=== PATIENT | female | born 1960 | race Two or more races ===

== ENCOUNTER 2020-06-22 15:39 | Emergency (ER) | payer MEDICAID, SELFPAY ==
[2020-06-22 15:43] VITALS: BP 130/82; PULSE 87; RESP 18; TEMP 37.2; O2SAT 97; BMI 41.4
--- NOTE | 2020-06-22 16:18 | XR_ITS ---
EXAMINATION: 1. LEFT FOOT. 2. LEFT ANKLE. 3. LEFT TIBIA-FIBULA. 4. LEFT KNEE. CLINICAL INFORMATION: Fall. Now with pain. COMPARISON: Left knee 05/11/2019 TECHNIQUE: 1. Left foot. 3 views 2. Left ankle. 3 views 3. Left tibia-fibula. 2 views 4. Left knee. 4 views FINDINGS: 1. Left foot. No fracture or dislocation. Joint spaces are normal. There is a small plantar calcaneal spur. 2. Left ankle. No fracture. No dislocation. Ankle mortise is congruent. 3. Left tibia-fibula. No fracture of the tibia or the fibula. No focal bone lesion or abnormal periosteal reaction. 4. Left knee. No fracture or dislocation. There is joint narrowing of the medial femoral tibial joint with marginal bone spurs of the femur and tibia. No bony erosion or soft tissue calcification. IMPRESSION: 1. Left foot. No acute abnormality. 2. Left ankle. No acute abnormality. 3. Left tibia-fibula. No acute abnormality. 4. Left knee. No acute abnormality.
[2020-06-22] MEDS: oxyCODONE HCl Immed Release 15 MG TABLET PO (16:45)
--- NOTE | 2020-06-22 16:49 | ED_ITS ---
HPI - Extremity Injury (Lower) General Chief Complaint: Extremity Injury, Lower <JEREMY Hernandez Last Filed: 06/22/20 17:10> Stated Complaint: fall <JEREMY Hernandez Last Filed: 06/22/20 17:10> Time Seen by Provider: 06/22/20 16:17 <JEREMY Hernandez Last Filed: 06/22/20 17:10> Source: patient <JEREMY Hernandez Last Filed: 06/22/20 17:10> Mode of arrival: wheelchair <JEREMY Hernandez Last Filed: 06/22/20 17:10> Limitations: no limitations <JEREMY Hernandez Last Filed: 06/22/20 17:10> History of Present Illness HPI Narrative: 59-year-old female presenting to the ED with complaints of left knee /leg / ankle/ foot pain after she slipped and fell at home 2 days ago. Denies head injury or loss of consciousness. Denies any numbness, tingling or any other complaints or concerns at this time. Reports she is taking 15 mg oxycodone every 4 hours every day prescribed for her chronic neck and back pain without any symptomatic relief. Reports she walks up and down the stairs a lot which makes the pain worse. Nothing relieves the pain. <JEREMY Hernadnez Last Filed: 06/22/20 17:10> Related Data Home Medications: Previous Rx's Medication Instructions Recorded cyclobenzaprine 10 mg PO TID PRN #10 tab 06/22/20 <JEREMY Hernandez Last Filed: 06/22/20 17:10> Allergies/Adverse Reactions: Allergies Allergy/AdvReac Type Severity Reaction Status Date / Time Penicillins [PENICILLINS] Allergy Severe HIVES Unverified 05/25/20 18:31 amoxicillin [AMOXICILLIN] Allergy Intermediate HIVES Unverified 05/25/20 18:31 ciprofloxacin [From CIPRO] Allergy Intermediate HIVES Unverified 05/25/20 18:31 aspirin [ASA] Allergy Unknown ITCHING Unverified 05/25/20 18:31 ibuprofen [From MOTRIN] Allergy Unknown GI UPSET Unverified 05/25/20 18:31 latex [LATEX] Allergy Unknown RASH Unverified 05/25/20 18:31 latex Allergy Unknown rash Unverified 03/03/19 00:00 penicillin V Allergy Unknown rash Unverified 03/03/19 00:00 Tylox Allergy Unknown rash Unverified 03/03/19 00:00 acetaminophen [From TYLOX] AdvReac Severe NAUSEA & Unverified 05/25/20 18:31 VOMITING <JEREMY Hernandez - Last Filed: 06/22/20 17:10> Review of Systems Review of Systems: Yes all other systems are reviewed and are negative <JEREMY Hernandez - Last Filed: 06/22/20 17:10> PMFSH Past Medical History Attestation statement: The following information was validated with the patient. <JEREMY Hernandez - Last Filed: 06/22/20 17:10> Medical History: Medical History Asthma COPD (chronic obstructive pulmonary disease) Fibromyalgia HTN (hypertension) Hyperthyroidism Sleep apnea <JEREMY Hernandez - Last Filed: 06/22/20 17:10> Social History Social History: Social History Alcohol intake: never Smoking Status: Current every day smoker Smoked in Last 30 Days: Yes Use of substances other than those prescribed or required for medical reasons: No Substance Use Type: Prescription Drugs Advance Directives: No Advance Directives Information Provided: Yes <JEREMY Hernandez - Last Filed: 06/22/20 17:10> Physical Exam Vital Signs: Vital Signs: Vital Signs Temp Pulse Resp BP Pulse Ox 06/22/20 15:43 99 F 87 18 130/82 97 Body Mass Index 41.4 <JEREMY Hernandez - Last Filed: 06/22/20 17:10> Vital Signs: Vital Signs Temp Pulse Resp BP Pulse Ox 06/22/20 15:43 99 F 87 18 130/82 97 Body Mass Index 41.4 <Jim Mantilla MD - Last Filed: 06/27/20 15:36> Const: General: cooperative, healthy appearing, comfortable, no acute distress, well developed, alert, awake and Physically active <JEREMY Hernandez - Last Filed: 06/22/20 17:10> Nutritional Appearance: average body habitus and well nourished <JEREMY Hernandez - Last Filed: 06/22/20 17:10> Orientation/consciousness: patient oriented x3 <JEREMY Hernandez - Last Filed: 06/22/20 17:10> Limitations: no limitations <JEREMY Hernandez - Last Filed: 06/22/20 17:10> HENMT: Head: Yes normal to inspection, Yes No palpable skull fracture present, Yes normocephalic and Yes atraumatic <Bridgette Nowak [place] - Last Filed: 06/22/20 17:10> Ears: hearing grossly normal bilaterally <JEREMY Hernandez - Last Filed: 06/22/20 17:10> General nose exam: Normal external nose present <JEREMY Hernandez - Last Filed: 06/22/20 17:10> Face and sinus: Yes normal facial exam <JEREMY Hernandez - Last Filed: 06/22/20 17:10> Mouth: moist mucous membranes <JEREMY Hernandez - Last Filed: 06/22/20 17:10> Eyes: General: appearance normal, both eyes and all related structures <JEREMY Hernandez - Last Filed: 06/22/20 17:10> Visual Euceda: normal visual euceda by confrontation <JEREMY Hernandez - Last Filed: 06/22/20 17:10> Alignment and Position: alignment normal <Bridgette Nowak [place] - Last Filed: 06/22/20 17:10> Periorbital: periorbital findings normal <JEREMY Hernandez - Last Filed: 06/22/20 17:10> Eyelids: Yes eyelids normal <JEREMY Hernandez - Last Filed: 06/22/20 17:10> Conjunctivae: conjunctivae normal <JEREMY Hernandez - Last Filed: 06/22/20 17:10> Sclerae: sclerae normal <JEREMY Hernandez - Last Filed: 06/22/20 17:10> Pupils: Equal, round and reactive pupils present <JEREMY Hernandez - Last Filed: 06/22/20 17:10> EOM: EOMs intact bilaterally <JEREMY Hernandez - Last Filed: 06/22/20 17:10> Neck: Neck: Yes normal visual inspection, Yes full ROM, Yes no lymphadenopathy, Yes no meningeal signs, Yes trachea midline and Yes supple <Bridgette Nowak [place] - Last Filed: 06/22/20 17:10> Chest: Chest palpation & inspection: normal inspection of the chest <Bridgette Nowak [place] - Last Filed: 06/22/20 17:10> Resp: Effort & Inspection: normal respiratory effort and able to speak in complete sentences <Bridgette Nowak [place] - Last Filed: 06/22/20 17:10> Auscultation: clear to auscultation bilaterally, no crackles, no rales, no rhonchi and no wheezes <Bridgette Nowak [place] - Last Filed: 06/22/20 17:10> Cardio: Rate: regular rate <Bridgette Nowak [place] - Last Filed: 06/22/20 17:10> Rhythm: regular rhythm <Bridgette Nowak [place] - Last Filed: 06/22/20 17:10> Heart sounds: S1 normal heart sound present and S2 normal heart sound present <Bridgette Nowak [place] - Last Filed: 06/22/20 17:10> Peripheral pulses: Peripheral pulses 2+ throughout <Bridgette Nowak [place] - Last Filed: 06/22/20 17:10> GI: Inspection: Yes normal to inspection <Bridgette Nowak [place] - Last Filed: 06/22/20 17:10> Palpation (GI): Soft to palpation, nontender and No hepatosplenomegaly present <Bridgette Nowak [place] - Last Filed: 06/22/20 17:10> Percussion: Yes normal to percussion <Bridgette Nowak [place] - Last Filed: 06/22/20 17:10> Auscultation: normal bowel sounds <Bridgette Nowak [place] - Last Filed: 06/22/20 17:10> : General: Yes no CVA tenderness <JEREMY Hernandez - Last Filed: 06/22/20 17:10> Back/Spine/Pelvis: Back: no CVA tenderness <JEREMY Hernandez - Last Filed: 06/22/20 17:10> Cervical Spine: normal cervical lordosis and cervical ROM normal <JEREMY Hernandez - Last Filed: 06/22/20 17:10> Thoracic/Lumbar Spine: thoracic and lumbar spine normal to inspection and thoraco-lumbar ROM normal <Bridgette Nowak [place] - Last Filed: 06/22/20 17:10> Skin: General skin exam: no rashes or lesions noted, elasticity normal and turgor normal <Bridgette Nowak [place] - Last Filed: 06/22/20 17:10> Trauma: no lacerations or abrasions <Bridgette Nowak [place] - Last Filed: 06/22/20 17:10> Wounds: no wounds <Bridgette Nowak [place] - Last Filed: 06/22/20 17:10> Hair: normal <Bridgette Nowak [place] - Last Filed: 06/22/20 17:10> Nails: normal <Bridgette Nowak [place] - Last Filed: 06/22/20 17:10> Neuro: General: patient oriented x3 and no meningeal signs <Bridgette Nowak [place] - Last Filed: 06/22/20 17:10> Cranial nerves: Yes CN's II-XII intact bilaterally and Yes Equal, round and reactive pupils present <Bridgette Nowak [place] - Last Filed: 06/22/20 17:10> Cognition (Neuro): normal cognition <JEREMY Hernandez - Last Filed: 06/22/20 17:10> Gait exam (Neuro): Normal gait present <Bridgette Nowak [place] - Last Filed: 06/22/20 17:10> Motor exam (neuro): 5/5 motor strength present throughout <Bridgette Nowak [place] - Last Filed: 06/22/20 17:10> Extrem: General: Yes normal to inspection, Yes full ROM, Yes capillary refill normal, Yes no clubbing, cyanosis or edema, No no pedal edema, No no calf tenderness, Yes normal gait and No edema <Bridgette Nowak [place] - Last Filed: 06/22/20 17:10> Right upper extremity: normal to inspection, full ROM and normal capillary refill; no edema <JEREMY Hernandez - Last Filed: 06/22/20 17:10> Left upper extremity: normal to inspection, full ROM and normal capillary refill; no edema <Bridgette Nowak [place] - Last Filed: 06/22/20 17:10> Right lower extremity: normal to inspection, full ROM and normal capillary refill; no edema <JEREMY Hernandez - Last Filed: 06/22/20 17:10> Left lower extremity: normal to inspection, full ROM, normal capillary refill, knee Details: normal to inspection, tenderness, swelling Location: of the patella, of the tibial tuberosity, of the proximal fibula, of the pre-patellar area, of the infrapatellar area, of the distal upper leg and of the proximal tibia, normal ROM, knee ligament exam normal, Carla's Test and Apley's Test; no abrasions, no lacerations, no ecchymosis, no crepitus, no foreign bodies, no penetrating wound, no deformity and no unusual warmth, lower leg Details: normal to inspection, tenderness Location: of the proximal tibia, of the proximal fibula, of the midshaft tibia, of the midshaft fibula, of the distal tibia and of the distal fibula; not of the posterior calf and no edema; no localized swelling, no palpable cords, no pitting edema, no non-pitting edema, no abrasions, no lacerations, no ecchymosis, no crepitus, no foreign bodies, no penetrating wound, no deformity and no unusual warmth, ankle Details: normal to inspection, tenderness, no edema and normal ROM; no swelling, no warmth, no cate sions, no lacerations, no ecchymosis, no crepitus, no foreign bodies, no penetrating wound and achilles tendon exam normal and foot Details: normal capillary refill, normal to inspection, tenderness, toes with normal ROM, vascular exam Details: dorsalis pedis pulse present, posterior tibial pulse present and normal capillary refill, tendon exam Details: active flexion normal, active flexion abnormal, active extension normal and active extension abnormal and motor-sensory exam Details: two point discrimination normal, light-touch normal and pin-prick normal; no unusual warmth, edema noted, no abrasions, no lacerations, no ecchymosis, no crepitus, no foreign bodies and no puncture wound; no edema <JEREMY Hernandez - Last Filed: 06/22/20 17:10> Psych: Appearance: grossly normal and well kempt <JEREMY Hernandez - Last Filed: 06/22/20 17:10> Mental Status: mental status grossly normal <JEREMY Hernandez - Last Filed: 06/22/20 17:10> Speech and movement: Normal speech and movement present and Clear speech present <JEREMY Hernandez - Last Filed: 06/22/20 17:10> Affect: normal affect <JEREMY Hernandez - Last Filed: 06/22/20 17:10> Attitude: cooperative <JEREMY Hernandez - Last Filed: 06/22/20 17:10> Thought process: Normal thought process present <JEREMY Hernandez - Last Filed: 06/22/20 17:10> Thought content: Normal thought content present <JEREMY Hernandez - Last Filed: 06/22/20 17:10> Insight: Good insight present (Psych) <JEREMY Hernandez - Last Filed: 06/22/20 17:10> Judgement: Good judgement present (Psych) <JEREMY Hernandez - Last Filed: 06/22/20 17:10> Course Course Course Narrative: X-ray imaging obtained and all negative will DC home with instructions return if any new or worsening symptoms to follow-up with primary care provider. Patient is already prescribed 15 mg oxycodone and was prescribed 140 tablets on 06/06/2020 therefore will continue to tell her to take her prescribed oxycodone. Patient understands agrees the plan. <JEREMY Hernandez - Last Filed: 06/22/20 17:10> I have reviewed the chart <Jim Mantilla MD - Last Filed: 06/27/20 15:36> MDM - Extremity Injury (Lower) Imaging Data left knee/ankle/leg/foot: Attestation: I personally reviewed and interpreted this imaging study as follows: <JEREMY Hernandez - Last Filed: 06/22/20 17:10> Radiologist's impression: IMPRESSION: 1. Left foot. No acute abnormality. 2. Left ankle. No acute abnormality. 3. Left tibia-fibula. No acute abnormality. 4. Left knee. No acute abnormality. <JEREMY Hernandez Last Filed: 06/22/20 17:10> Discharge Plan Discharge Clinical Impression: Ankle fracture, Leg sprain, Knee sprain, Foot sprain, Fall <JEREMY Hernandez - Last Filed: 06/22/20 17:10> Patient Disposition: Home, Self-Care <JEREMY Hernandez - Last Filed: 06/22/20 17:10> Instructions: Ankle Sprain (ED), Knee Sprain (ED), Fall Prevention for Older Adults (ED) <JEREMY Hernandez - Last Filed: 06/22/20 17:10> Prescriptions: New cyclobenzaprine 10 mg tablet 10 mg PO TID PRN (Reason: pain) Qty: 10 RF: 0 <JEREMY Hernandez - Last Filed: 06/22/20 17:10> Referrals: Silvina,MD Tone [Primary Care Provider] - 2 days <JEREMY Hernandez - Last Filed: 06/22/20 17:10> Interventions: ED Discharge Assessment Last Done: 06/22/20 17:39 <JEREMY Hernandez - Last Filed: 06/22/20 17:10> Discharge Date/Time: 06/22/20 17:42 <JEREMY Hernandez - Last Filed: 06/22/20 17:10> Print Language: [place] <JEREMY Hernandez - Last Filed: 06/22/20 17:10>
== END 2020-06-22 17:42 | disposition home or self-care (01) ==
PROVIDERS: Emergency Provider Emergency Medicine; PCP Internal Medicine Geriatric Medicine
DX: S93.402A Sprain of unspecified ligament of left ankle, initial encounter (principal); S83.92XA Sprain of unspecified site of left knee, initial encounter; W01.0XXA Fall on same level from slipping, tripping and stumbling without subsequent striking against object, initial encounter; I10 Essential (primary) hypertension; Y93.9 Activity, unspecified; Y92.009 Unspecified place in unspecified non-institutional (private) residence as the place of occurrence of the external cause; Y99.9 Unspecified external cause status
CPT/HCPCS: 73564; 73590; 73610; 73630; 99283; 99284

== ENCOUNTER 2020-07-24 17:04 | Emergency (ER) | payer MEDICAID, SELFPAY ==
--- NOTE | 2020-07-24 | ECG_ITS ---
Test Reason : CHEST PAIN Blood Pressure : / mmHG Vent. Rate : 084 BPM Atrial Rate : 084 BPM P-R Int : 140 ms QRS Dur : 088 ms QT Int : 390 ms P-R-T Axes : 032 015 071 degrees QTc Int : 460 ms Normal sinus rhythm Nonspecific ST abnormality Abnormal ECG When compared with ECG of 16-APR-2020 14:51, Premature supraventricular complexes are no longer Present ST more depressed Anterolateral leads Referred By: Generic ED Physician Electronically Signed By:GRACIA STRONG MD
[2020-07-24 17:04] VITALS: BMI 91.4
[2020-07-24 17:46] VITALS: BP 142/80; PULSE 94; RESP 20; TEMP 36.6; O2SAT 96; BMI 41.4
--- NOTE | 2020-07-24 19:29 | XR_ITS ---
EXAMINATION: XR CHEST CLINICAL INFORMATION: Chest pain COMPARISON: 04/16/2020 TECHNIQUE: Frontal view of the chest was obtained. FINDINGS: Heart size normal. There is no evidence of CHF. The generalized interstitial prominence seen previously is no longer present but there is patchy density seen in both lower lobes which could represent more focal infiltrate/atelectasis. No pleural effusions are seen. XR/XR chest 1V IMPRESSION: Bibasilar atelectasis/infiltrates.
[2020-07-24 19:54] VITALS: BP 176/100; PULSE 86; RESP 16; O2SAT 97
--- NOTE | 2020-07-24 20:02 | PC.NURSE ---
PATIENT REPORTS TAKING 3 SL NITRO YESTERDAY WITH HIGH BP, CHEST PAIN, BACK PAIN. DID NOT GET EVALUATED. EDUCATED PATIENT THAT IF SHE IS USING SL NITRO SHE SHOULD BE GETTING EVALUATED.
[2020-07-24 20:07] LABS: Basophils Absolute Auto 0.1 X10*3/uL (0.0-0.2); Basophils Percent Auto 0.3 % (0-2); Eosinophils Percent Auto 0.1 % (0-4); Hematocrit 48.9 % (37-47); Imm Gran Abs Auto 0.09 X10*3/uL (0.00-0.03); Imm Gran Pct Auto 0.6 % (0.0-0.4); Lymphocytes Absolute Auto 3.5 X10*3/uL (1.2-4.9); Lymphocytes Percent Auto 23.2 % (20-40); MANUAL DIFF FLAG NO; Mean Corpuscular HGB Conc 32.7 g/dl (31.0-35.0); Mean Corpuscular Hemoglobin 28.2 pg (27.0-33.0); Mean Corpuscular Volume 86.1 fL (80-98); Mean Platelet Volume 10.6 fL (9.4-12.3); Monocytes Absolute Auto 0.9 X10*3/uL (0.1-1.2); Monocytes Percent Auto 6.2 % (2-11); Neutrophils Absolute Auto 10.4 X10*3/uL (2.0-8.3); Neutrophils Percent Auto 69.6 % (45-73); Platelet Count 333 X10*3/uL (160-400); Red Blood Count 5.68 X10*6/uL (4.20-5.50); Red Cell Distribution Width 13.7 % (11.0-16.0)
[2020-07-24 20:26] LABS: Anion Gap 16 (12-20); Blood Urea Nitrogen 18 mg/dL (9-16); Calcium 10.1 mg/dL (8.4-10.2); Carbon Dioxide 28 mmol/L (22-29); Chloride 99 mmol/L (96-108); Creatinine Clr Calc Pharmacy 87.1; Estimated Glomerular Filt Rate > 60; Glucose Random 165 mg/dL (60-115); Potassium 3.3 mmol/l (3.3-5.1); Sodium 140 mmol/L (135-145)
--- NOTE | 2020-07-24 20:31 | PC.NURSE ---
patient a&ox3, cardiac care nurse nsr 80s-90s, patient talking in full sentences stating she feels she cant breathe, o2 sat wnl, vss, will continue to monitor.
[2020-07-24 20:32] VITALS: BP 150/85; PULSE 88; RESP 20; O2SAT 96
[2020-07-24 20:34] LABS: Troponin-I High Sensitivity 5.6 ng/L (<3.5-17.0)
--- NOTE | 2020-07-24 21:04 | ED.CHESTPAIN ---
HPI - Chest Pain General Chief Complaint: Chest Pain Stated Complaint: chest pain Time Seen by Provider: 07/24/20 20:55 Source: patient Mode of arrival: ambulatory Limitations: no limitations History of Present Illness HPI narrative: patient with chronic chest pain with hypertension and palpitation whenever her blood pressure goes high she gets the chest pain this time patient had pain for last few days but since yesterday blood pressure was 180 systolic felt short of breath took 3 nitros felt better patient has similar history in the past had cardiac catheterization done 3 years ago with nonobstructive coronaries. Patient used to be on lisinopril before discontinued for unknown reason nausea hydrochlorothiazide 25 mg patient been here multiple times for similar reasons Related Data Previous Rx's Medication Instructions Recorded cyclobenzaprine 10 mg PO TID PRN #10 tab 06/22/20 lisinopril 10 mg PO DAILY #30 tab 07/24/20 Allergies Allergy/AdvReac Type Severity Reaction Status Date / Time Penicillins [PENICILLINS] Allergy Severe HIVES Unverified 05/25/20 18:31 amoxicillin [AMOXICILLIN] Allergy Intermediate HIVES Unverified 05/25/20 18:31 ciprofloxacin [From CIPRO] Allergy Intermediate HIVES Unverified 05/25/20 18:31 aspirin [ASA] Allergy Unknown ITCHING Unverified 05/25/20 18:31 ibuprofen [From MOTRIN] Allergy Unknown GI UPSET Unverified 05/25/20 18:31 latex [LATEX] Allergy Unknown RASH Unverified 05/25/20 18:31 latex Allergy Unknown rash Unverified 03/03/19 00:00 penicillin V Allergy Unknown rash Unverified 03/03/19 00:00 Tylox Allergy Unknown rash Unverified 03/03/19 00:00 acetaminophen [From TYLOX] AdvReac Severe NAUSEA & Unverified 05/25/20 18:31 VOMITING PMFSH Past Medical History Medical History Asthma COPD (chronic obstructive pulmonary disease) Fibromyalgia HTN (hypertension) Hyperthyroidism Sleep apnea Social History Social History Alcohol intake: never Smoking Status: Current some day smoker Use of substances other than those prescribed or required for medical reasons: No Substance Use Type: Prescription Drugs Advance Directives: No Advance Directives Information Provided: Yes Physical Exam Vital Signs: Vital Signs: Last Vital Signs Temp 98.2 F 07/24/20 22:00 Pulse 76 07/24/20 22:00 Resp 20 07/24/20 20:32 BP 135/74 07/24/20 22:00 Pulse Ox 94 07/24/20 22:00 Body Mass Index 41.4 MDM - Chest Pain Lab Data Result diagrams: 07/24/20 20:00 07/24/20 20:00 Labs: Lab Results 07/24/20 07/24/20 07/24/20 Range/Units 20:00 20:00 20:00 WBC 15.0 H (4.8-10.8) X10*3/uL RBC 5.68 H (4.20-5.50) X10*6/uL Hgb 16.0 (12.0-16.0) g/dl Hct 48.9 H (37-47) % MCV 86.1 (80-98) fL MCH 28.2 (27.0-33.0) pg MCHC 32.7 (31.0-35.0) g/dl RDW 13.7 (11.0-16.0) % Plt Count 333 (160-400) X10*3/uL MPV 10.6 (9.4-12.3) fL Immature Gran % (Auto) 0.6 H (0.0-0.4) % Neut % (Auto) 69.6 (45-73) % Lymph % (Auto) 23.2 (20-40) % Mcdonald % (Auto) 6.2 (2-11) % Eos % (Auto) 0.1 (0-4) % Baso % (Auto) 0.3 (0-2) % Lymph # (Auto) 3.5 (1.2-4.9) X10*3/uL Mcdonald # (Auto) 0.9 (0.1-1.2) X10*3/uL Eos # (Auto) 0.0 (0.0-0.4) X10*3/uL Baso # (Auto) 0.1 (0.0-0.2) X10*3/uL Abs Immat Gran (auto) 0.09 H (0.00-0.03) X10*3/uL Absolute Neuts (auto) 10.4 H (2.0-8.3) X10*3/uL Absolute Nucleated RBC 0.000 (0.0-0.012) X10*3/uL Nucleated RBC % (auto) 0.0 (0.0-0.2) /100WBC Hold Blue Top SEE NOTE Sodium 140 (135-145) mmol/L Potassium 3.3 (3.3-5.1) mmol/l Chloride 99 (96-108) mmol/L Carbon Dioxide 28 (22-29) mmol/L Anion Gap 16 (12-20) BUN 18 H (9-16) mg/dL Creatinine 0.88 (0.5-1.4) mg/dL Estim Creat Clear Calc 87.1 Estimated GFR > 60 Random Glucose 165 H (60-115) mg/dL Calcium 10.1 (8.4-10.2) mg/dL Troponin I High Sens (<3.5-17.0) ng/L 07/24/20 Range/Units 20:00 WBC (4.8-10.8) X10*3/uL RBC (4.20-5.50) X10*6/uL Hgb (12.0-16.0) g/dl Hct (37-47) % MCV (80-98) fL MCH (27.0-33.0) pg MCHC (31.0-35.0) g/dl RDW (11.0-16.0) % Plt Count (160-400) X10*3/uL MPV (9.4-12.3) fL Immature Gran % (Auto) (0.0-0.4) % Neut % (Auto) (45-73) % Lymph % (Auto) (20-40) % Mcdonald % (Auto) (2-11) % Eos % (Auto) (0-4) % Baso % (Auto) (0-2) % Lymph # (Auto) (1.2-4.9) X10*3/uL Mcdonald # (Auto) (0.1-1.2) X10*3/uL Eos # (Auto) (0.0-0.4) X10*3/uL Baso # (Auto) (0.0-0.2) X10*3/uL Abs Immat Gran (auto) (0.00-0.03) X10*3/uL Absolute Neuts (auto) (2.0-8.3) X10*3/uL Absolute Nucleated RBC (0.0-0.012) X10*3/uL Nucleated RBC % (auto) (0.0-0.2) /100WBC Hold Blue Top Sodium (135-145) mmol/L Potassium (3.3-5.1) mmol/l Chloride (96-108) mmol/L Carbon Dioxide (22-29) mmol/L Anion Gap (12-20) BUN (9-16) mg/dL Creatinine (0.5-1.4) mg/dL Estim Creat Clear Calc Estimated GFR Random Glucose (60-115) mg/dL Calcium (8.4-10.2) mg/dL Troponin I High Sens 5.6 (<3.5-17.0) ng/L ECG Data ECG #1: Attestation: I personally reviewed and interpreted this ECG as follows: ECG interpretation date: 07/24/20 Prior ECG tracings: available for review Interpretation: normal sinus rhythm with heart rate of [address] T wave changes normal axis impression normal EKG Discharge Plan Discharge Clinical Impression: Atypical chest pain HTN (hypertension) Qualifiers: Hypertension type: essential hypertension Qualified Code(s): I10 - Essential (primary) hypertension Patient Disposition: Home, Self-Care Instructions: Chest Pain (ED), Chronic Hypertension (ED) Additional Instructions: continue pain medication. Start on lisinopril 10 mg daily for blood pressure control and follow-up with primary care doctor Prescriptions: New lisinopril 10 mg tablet 10 mg PO DAILY Qty: 30 RF: 0 No Action cyclobenzaprine 10 mg tablet 10 mg PO TID PRN (Reason: pain) Qty: 10 RF: 0
[2020-07-24 21:12] VITALS: BP 151/89; PULSE 81
[2020-07-24] MEDS: lisinopriL 10 MG TABLET PO (21:12)
[2020-07-24] MEDS: Morphine Sulfate 4 MG/ML CARTRIDGE IVPUSH (21:12)
--- NOTE | 2020-07-24 21:15 | PC.NURSE ---
patient medicated per order
[2020-07-24 22:00] VITALS: BP 135/74; PULSE 76; TEMP 36.8; O2SAT 94
--- NOTE | 2020-07-24 22:04 | PC.NURSE ---
patient a&ox3, color television console monitor nsr 80s, vitals stable, pt 10/10 generalized pain, will notify provider and continue to monitor.
== END 2020-07-24 23:09 | disposition home or self-care (01) ==
PROVIDERS: Emergency Provider Internal Medicine; PCP Internal Medicine Geriatric Medicine
DX: R07.9 Chest pain, unspecified (principal); R00.2 Palpitations; I10 Essential (primary) hypertension; Z79.899 Other long term (current) drug therapy; F17.200 Nicotine dependence, unspecified, uncomplicated; Z71.6 Tobacco abuse counseling
CPT/HCPCS: 36415; 71045; 80048; 84484; 85025; 93005; 96374; 99284; J2270

== ENCOUNTER 2020-08-13 19:16 | Emergency (ER) | payer MEDICAID, SELFPAY ==
[2020-08-13 19:24] VITALS: BP 167/93; PULSE 86; RESP 14; TEMP 36.7; O2SAT 97; BMI 42.9
--- NOTE | 2020-08-13 21:29 | ECG_ITS ---
Test Reason : CP Blood Pressure : / mmHG Vent. Rate : 078 BPM Atrial Rate : 078 BPM P-R Int : 152 ms QRS Dur : 086 ms QT Int : 410 ms P-R-T Axes : 051 031 057 degrees QTc Int : 467 ms Normal sinus rhythm Nonspecific ST abnormality Abnormal ECG When compared with ECG of 24-JUL-2020 17:08, No significant change was found Referred By: Reina Sanchez Electronically Signed By:VANIA KAPLAN MD
--- NOTE | 2020-08-13 21:31 | XR_ITS ---
EXAMINATION: XR CHEST CLINICAL INFORMATION: Cough COMPARISON: 07/24/2020 TECHNIQUE: Frontal view of the chest was obtained. FINDINGS: Heart size normal. There is been improvement of left basilar atelectasis with some continued presence of right basilar atelectasis/fluid in the minor fissure. No acute consolidation, effusion or lung masses seen. No evidence of CHF. XR/XR chest 1V IMPRESSION: No acute intrathoracic disease
--- NOTE | 2020-08-13 21:32 | ED.GENADULT ---
HPI - General Adult General Chief complaint: Weakness Stated complaint: Weakness Time Seen by Provider: 08/13/20 21:21 History of Present Illness HPI narrative: patient is a 59-year-old female presented today with having generalized total body aches including headache chest abdomen arms and legs. Patient denies any fever or chills. Denies any nausea or vomiting. Does have coughing upper respiratory symptoms. She is a lifelong smoker. History of hypertension, high cholesterol. Patient never had a heart attack. Never had a stress test. She is from home. The chest pain is nonspecific it is worse with certain movement. It is fairly constant for the last 3 days. Patient denies any change with nitro. Feels total body malaise. She is due to get her Lyrica and clonazepam. Patient claims that due to an insurance issue she did not have them for the last 2 weeks. The symptom has gotten worse during that time. Related Data Previous Rx's Medication Instructions Recorded cyclobenzaprine 10 mg PO TID PRN #10 tab 06/22/20 lisinopril 10 mg PO DAILY #30 tab 07/24/20 Allergies Allergy/AdvReac Type Severity Reaction Status Date / Time Penicillins [PENICILLINS] Allergy Severe HIVES Unverified 05/25/20 18:31 amoxicillin [AMOXICILLIN] Allergy Intermediate HIVES Unverified 05/25/20 18:31 ciprofloxacin [From CIPRO] Allergy Intermediate HIVES Unverified 05/25/20 18:31 aspirin [ASA] Allergy Unknown ITCHING Unverified 05/25/20 18:31 ibuprofen [From MOTRIN] Allergy Unknown GI UPSET Unverified 05/25/20 18:31 latex [LATEX] Allergy Unknown RASH Unverified 05/25/20 18:31 latex Allergy Unknown rash Unverified 03/03/19 00:00 penicillin V Allergy Unknown rash Unverified 03/03/19 00:00 Tylox Allergy Unknown rash Unverified 03/03/19 00:00 acetaminophen [From TYLOX] AdvReac Severe NAUSEA & Unverified 05/25/20 18:31 VOMITING Review of Systems Review of Systems: Constitutional: No Weight loss, No Fever, No Chills, No Night Sweats, No Fatigue, No Malaise ENT/Mouth: No Hearing loss, No Ear Pain, No Nasal Congestion, No Sinus Pain, No Hoarseness, No sore throat, No Rhinorrhea, No Swallowing Difficulty Eyes: No Eye Pain, No Swelling, No Redness, No Foreign Body, No Discharge, No Vision Changes Cardiovascular: positive Chest Pain, No SOB, No Dyspnea on Exertion, No Orthopnea, No Edema, No Palpitations Respiratory: Positive Cough, No Sputum, No Wheezing, No Smoke Exposure, No Dyspnea Gastrointestinal: No Nausea, No Vomiting, No Diarrhea, No Constipation, positive abdominal Pain, No Hematochezia, No Melena Genitourinary: no irregular bleeding, No Dysuria, No Urinary Frequency, No Hematuria, No Urinary Incontinence, No Urgency, No Flank Pain, No Urinary Flow Changes, No Hesitancy Musculoskeletal: No joint pain, No Myalgias, No Joint Swelling Skin: No Skin Lesions, No rash Neuro: positiveWeakness, No Numbness, No Paresthesias, No Loss of Consciousness, No Dizziness, No Headache Psych: positive Anxiety/Panic, No Depression, No SI/HI/AH/VH, No Social Issues, Heme/Lymph: No Bruising, No Bleeding,No Lymphadenopathy Endocrine: No Polyuria, No Polydipsia, No Temperature Intolerance [facility] Past Medical History Attestation statement: The following information was validated with the patient. Medical History Asthma COPD (chronic obstructive pulmonary disease) Fibromyalgia HTN (hypertension) Hyperthyroidism Migraines Seizure Sleep apnea Social History Social History Alcohol intake: never Smoking Status: Current some day smoker Use of substances other than those prescribed or required for medical reasons: No Substance Use Type: Prescription Drugs Advance Directives: No Advance Directives Information Provided: No Physical Exam Vital Signs: Vital Signs: Last Vital Signs Temp 98.1 F 08/13/20 19:24 Pulse 78 08/13/20 21:37 Resp 19 08/13/20 21:37 BP 143/74 H 08/13/20 21:37 Pulse Ox 95 08/13/20 21:37 Body Mass Index 42.9 Appearance: Alert. Oriented X3. No acute distress. Eyes: Pupils equal, round and reactive to light. ENT: Pharynx normal. Neck: Normal inspection. Neck supple. No lymph nodes noted. No crepitus CVS: Normal heart rate and rhythm. Pulses normal. Normal S1 and S2 Respiratory: No respiratory distress. Breath sounds normal. No Wheezing. No rales Abdomen: Soft and nontender. No rigidity. No distention. good BS x4 Skin: Skin warm and dry. Normal skin color. Normal skin turgor. Extremities: No lower extremity edema. Neurovascular intact to all extremities. No Lacerations. No Rash Neuro: Oriented X 3. No motor deficit. No sensory deficit. Moving all extermities. No slurred speech Medical Decision Making MDM Narrative Medical decision making narrative: patient's chest x-ray did not show any focal infiltrate. Patient has diffuse total body aches. Cardiac enzyme was negative. EKG showed a sinus pattern heart rate was 75 p.r. QRS QT within normal limits there is no acute ST segment elevation noted. Patient well appearing. Discussed with patient the need to fill her Lyrica, clonazepam, narcotics with her primary physician. Will discharge patient home. There is no evidence for pneumonia. Patient's chest pain extremely atypical for ACS. Patient's troponin negative. EKG nonspecific. Heart score is less than 3. Will discharge patient home. Medical Records Medical records reviewed: Yes I reviewed the patient's medical records. Lab Data Result diagrams: 08/13/20 21:47 08/13/20 21:47 Labs: Lab Results 08/13/20 08/13/20 08/13/20 Range/Units 21:47 21:47 21:47 WBC 9.6 (4.8-10.8) X10*3/uL RBC 5.30 (4.20-5.50) X10*6/uL Hgb 15.1 (12.0-16.0) g/dl Hct 45.6 (37-47) % MCV 86.0 (80-98) fL MCH 28.5 (27.0-33.0) pg MCHC 33.1 (31.0-35.0) g/dl RDW 13.5 (11.0-16.0) % Plt Count 333 (160-400) X10*3/uL MPV 10.4 (9.4-12.3) fL Immature Gran % (Auto) 0.3 (0.0-0.4) % Neut % (Auto) 66.1 (45-73) % Lymph % (Auto) 26.0 (20-40) % [place] % (Auto) 5.8 (2-11) % Eos % (Auto) 1.2 (0-4) % Baso % (Auto) 0.6 (0-2) % Lymph # (Auto) 2.5 (1.2-4.9) X10*3/uL [place] # (Auto) 0.6 (0.1-1.2) X10*3/uL Eos # (Auto) 0.1 (0.0-0.4) X10*3/uL Baso # (Auto) 0.1 (0.0-0.2) X10*3/uL Abs Immat Gran (auto) 0.03 (0.00-0.03) X10*3/uL Absolute Neuts (auto) 6.4 (2.0-8.3) X10*3/uL Absolute Nucleated RBC 0.000 (0.0-0.012) X10*3/uL Nucleated RBC % (auto) 0.0 (0.0-0.2) /100WBC Sodium 140 (135-145) mmol/L Potassium 3.3 (3.3-5.1) mmol/l Chloride 102 (96-108) mmol/L Carbon Dioxide 26 (22-29) mmol/L Anion Gap 15 (12-20) BUN 9 (9-16) mg/dL Creatinine 0.70 (0.5-1.4) mg/dL Estim Creat Clear Calc 111.7 Estimated GFR > 60 Random Glucose 103 D (60-115) mg/dL Calcium 9.5 (8.4-10.2) mg/dL Troponin I High Sens 4.6 (<3.5-17.0) ng/L Coronavirus (PCR) (Negative) Influenza Type A (PCR) (Negative) Influenza Type B (PCR) (Negative) RSV RNA Qual (PCR) (Negative) 08/13/20 Range/Units 21:50 WBC (4.8-10.8) X10*3/uL RBC (4.20-5.50) X10*6/uL Hgb (12.0-16.0) g/dl Hct (37-47) % MCV (80-98) fL MCH (27.0-33.0) pg MCHC (31.0-35.0) g/dl RDW (11.0-16.0) % Plt Count (160-400) X10*3/uL MPV (9.4-12.3) fL Immature Gran % (Auto) (0.0-0.4) % Neut % (Auto) (45-73) % Lymph % (Auto) (20-40) % [place] % (Auto) (2-11) % Eos % (Auto) (0-4) % Baso % (Auto) (0-2) % Lymph # (Auto) (1.2-4.9) X10*3/uL [place] # (Auto) (0.1-1.2) X10*3/uL Eos # (Auto) (0.0-0.4) X10*3/uL Baso # (Auto) (0.0-0.2) X10*3/uL Abs Immat Gran (auto) (0.00-0.03) X10*3/uL Absolute Neuts (auto) (2.0-8.3) X10*3/uL Absolute Nucleated RBC (0.0-0.012) X10*3/uL Nucleated RBC % (auto) (0.0-0.2) /100WBC Sodium (135-145) mmol/L Potassium (3.3-5.1) mmol/l Chloride (96-108) mmol/L Carbon Dioxide (22-29) mmol/L Anion Gap (12-20) BUN (9-16) mg/dL Creatinine (0.5-1.4) mg/dL Estim Creat Clear Calc Estimated GFR Random Glucose (60-115) mg/dL Calcium (8.4-10.2) mg/dL Troponin I High Sens (<3.5-17.0) ng/L Coronavirus (PCR) NEGATIVE (Negative) Influenza Type A (PCR) NEGATIVE (Negative) Influenza Type B (PCR) NEGATIVE (Negative) RSV RNA Qual (PCR) NEGATIVE (Negative) ECG Data Attestation: I personally reviewed and interpreted this ECG as follows: Interpretation: Sinus heart rate is 75 p.r. QRS QT within normal limits there is no ST segment elevation noted. Discharge Plan Discharge Prescriptions: No Action cyclobenzaprine 10 mg tablet 10 mg PO TID PRN (Reason: pain) Qty: 10 RF: 0 lisinopril 10 mg tablet 10 mg PO DAILY Qty: 30 RF: 0
[2020-08-13 21:37] VITALS: BP 143/74; PULSE 78; RESP 19; O2SAT 95
[2020-08-13 21:57] LABS: MANUAL DIFF FLAG NO
[2020-08-13 21:59] LABS: Basophils Absolute Auto 0.1 X10*3/uL (0.0-0.2); Basophils Percent Auto 0.6 % (0-2); Eosinophils Absolute Auto 0.1 X10*3/uL (0.0-0.4); Eosinophils Percent Auto 1.2 % (0-4); Hematocrit 45.6 % (37-47); Hemoglobin 15.1 g/dl (12.0-16.0); Imm Gran Abs Auto 0.03 X10*3/uL (0.00-0.03); Imm Gran Pct Auto 0.3 % (0.0-0.4); Lymphocytes Absolute Auto 2.5 X10*3/uL (1.2-4.9); Mean Corpuscular HGB Conc 33.1 g/dl (31.0-35.0); Mean Corpuscular Hemoglobin 28.5 pg (27.0-33.0); Mean Platelet Volume 10.4 fL (9.4-12.3); Monocytes Absolute Auto 0.6 X10*3/uL (0.1-1.2); Monocytes Percent Auto 5.8 % (2-11); Neutrophils Absolute Auto 6.4 X10*3/uL (2.0-8.3); Neutrophils Percent Auto 66.1 % (45-73); Platelet Count 333 X10*3/uL (160-400); Red Cell Distribution Width 13.5 % (11.0-16.0); White Blood Count 9.6 X10*3/uL (4.8-10.8)
--- NOTE | 2020-08-13 22:07 | PC.NURSE ---
labs drawn, covid swab performed, ekg performed, xray performed, patient a&ox3, quality assurance monitor final applied pt nsr 80s, this nurse went to medicate with asa and patient refused demanding 15 mg oxycodone, provider was notified and no new orders were given at this time.
[2020-08-13 22:17] LABS: Anion Gap 15 (12-20); Blood Urea Nitrogen 9 mg/dL (9-16); Calcium 9.5 mg/dL (8.4-10.2); Carbon Dioxide 26 mmol/L (22-29); Chloride 102 mmol/L (96-108); Creatinine Clr Calc Pharmacy 111.7; Estimated Glomerular Filt Rate > 60; Glucose Random 103 mg/dL (60-115); Potassium 3.3 mmol/l (3.3-5.1); Sodium 140 mmol/L (135-145)
[2020-08-13 22:22] LABS: Troponin-I High Sensitivity 4.6 ng/L (<3.5-17.0)
--- NOTE | 2020-08-13 22:30 | PC.NURSE ---
patient complaining of 10/10 generalized body pain and again asked for narcotics as she hasnt taken her home meds in weeks, patient is asking to speak with the provider, provider was notified.
[2020-08-13 22:35] LABS: Influenza A PCR NEGATIVE (Negative); Influenza B PCR NEGATIVE (Negative); Resp Syncy Virus RNA Qual PCR NEGATIVE (Negative); SARS COV2 PCR INHOUSE NEGATIVE (Negative)
== END 2020-08-13 23:47 | disposition home or self-care (01) ==
PROVIDERS: Emergency Provider Emergency Medicine Emergency Medical Services; PCP Internal Medicine Geriatric Medicine
DX: R53.1 Weakness (principal); M79.10 Myalgia, unspecified site; I10 Essential (primary) hypertension; Z79.899 Other long term (current) drug therapy; F17.200 Nicotine dependence, unspecified, uncomplicated; Z71.6 Tobacco abuse counseling; Z20.828 Contact with and (suspected) exposure to other viral communicable diseases
CPT/HCPCS: 0241U; 36415; 71045; 80048; 84484; 85025; 93005; 99284

== ENCOUNTER → 2021-02-28 15:48 | Outpatient (BNVA) | payer MEDICAID, SELFPAY | PROVIDERS: PCP Internal Medicine; Visit Provider Student in an Organized Health Care Education/Training Program | DX: M79.7 Fibromyalgia (principal) | CPT/HCPCS: 99212 ==

== ENCOUNTER → 2021-05-24 09:25 | Outpatient (BNVA) | payer MEDICAID, SELFPAY | PROVIDERS: PCP Internal Medicine Geriatric Medicine | DX: R10.2 Pelvic and perineal pain (principal) | CPT/HCPCS: 51798 ==

== ENCOUNTER 2021-05-26 07:55 | Emergency (ER) | payer MEDICAID, SELFPAY ==
--- NOTE | ~2021-05-26 | XR_ITS ---
EXAMINATION: PELVIS X-RAY CLINICAL INFORMATION: Pain COMPARISON: None TECHNIQUE: One view of the pelvis FINDINGS: No fracture or dislocation is seen. There is mild arthritis at both hip joints with small osteophytes. Bones of the pelvis are unremarkable. There are degenerative changes of the lower lumbar spine. Soft tissues are unremarkable. XR/XR chest 1V IMPRESSION: Mild bilateral hip arthritis EXAMINATION: Chest x-ray CLINICAL INFORMATION: Chest pain COMPARISON: Previous chest x-ray most recent August 2020 TECHNIQUE: One view chest FINDINGS: The cardiac and mediastinal contours are stable. The lungs are clear. There is no pleural effusion or pneumothorax. No acute bone abnormality is seen. IMPRESSION: No evidence for acute disease in the chest.
--- NOTE | ~2021-05-26 | XR_ITS ---
EXAMINATION: PELVIS X-RAY CLINICAL INFORMATION: Pain COMPARISON: None TECHNIQUE: One view of the pelvis FINDINGS: No fracture or dislocation is seen. There is mild arthritis at both hip joints with small osteophytes. Bones of the pelvis are unremarkable. There are degenerative changes of the lower lumbar spine. Soft tissues are unremarkable. XR/XR pelvis min 3V IMPRESSION: Mild bilateral hip arthritis EXAMINATION: Chest x-ray CLINICAL INFORMATION: Chest pain COMPARISON: Previous chest x-ray most recent August 2020 TECHNIQUE: One view chest FINDINGS: The cardiac and mediastinal contours are stable. The lungs are clear. There is no pleural effusion or pneumothorax. No acute bone abnormality is seen. IMPRESSION: No evidence for acute disease in the chest.
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
[2021-05-26 08:29] VITALS: BP 141/76; PULSE 73; RESP 18; O2SAT 97; BMI 38.4
--- NOTE | 2021-05-26 08:34 | ECG_ITS ---
Test Reason : EXTREMITY PROBLEM Blood Pressure : / mmHG Vent. Rate : 070 BPM Atrial Rate : 070 BPM P-R Int : 164 ms QRS Dur : 084 ms QT Int : 432 ms P-R-T Axes : 048 024 042 degrees QTc Int : 466 ms Normal sinus rhythm Nonspecific ST abnormality Abnormal ECG When compared with ECG of 13-AUG-2020 21:34, No significant change was found Referred By: Ángela Mendoza Electronically Signed By:BINA DINERO
[2021-05-26] MEDS: Morphine Sulfate Immed Release 15 MG TABLET PO (08:53)
--- NOTE | 2021-05-26 09:30 | PC.NURSE ---
t presented to the ed with multiple complaints -headache, left hip pain, numbness in left hand, bladder pain, knee pain. Both bladder and hip pain are new. All other pain chronic. no c/o sob/dizziness
[2021-05-26 09:50] LABS: MANUAL DIFF FLAG NO
[2021-05-26 09:52] LABS: Basophils Absolute Auto 0.1 X10*3/uL (0.0-0.2); Basophils Percent Auto 0.8 % (0-2); Eosinophils Absolute Auto 0.1 X10*3/uL (0.0-0.4); Eosinophils Percent Auto 1.5 % (0-4); Hematocrit 41.5 % (37-47); Hemoglobin 13.7 g/dl (12.0-16.0); Imm Gran Abs Auto 0.02 X10*3/uL (0.00-0.03); Imm Gran Pct Auto 0.3 % (0.0-0.4); Lymphocytes Absolute Auto 1.6 X10*3/uL (1.2-4.9); Lymphocytes Percent Auto 19.9 % (20-40); Mean Corpuscular Hemoglobin 28.5 pg (27.0-33.0); Mean Corpuscular Volume 86.3 fL (80-98); Mean Platelet Volume 10.2 fL (9.4-12.3); Monocytes Absolute Auto 0.6 X10*3/uL (0.1-1.2); Monocytes Percent Auto 7.1 % (2-11); Neutrophils Absolute Auto 5.6 X10*3/uL (2.0-8.3); Neutrophils Percent Auto 70.4 % (45-73); Platelet Count 262 X10*3/uL (160-400); Red Blood Count 4.81 X10*6/uL (4.20-5.50); Red Cell Distribution Width 13.3 % (11.0-16.0); White Blood Count 7.9 X10*3/uL (4.8-10.8)
[2021-05-26 10:07] LABS: COVID-19 Test Negative (Negative); IDNOW Serial# 08D9AD1C
[2021-05-26 10:08] LABS: Anion Gap 11 (12-20); Blood Urea Nitrogen 9 mg/dL (9-16); Calcium 9.5 mg/dL (8.4-10.2); Carbon Dioxide 29 mmol/L (22-29); Chloride 104 mmol/L (96-108); Creatinine Clr Calc Pharmacy 105.1; Estimated Glomerular Filt Rate > 60; Glucose Random 107 mg/dL (60-115); Potassium 3.5 mmol/L (3.3-5.1); Sodium 140 mmol/L (135-145)
[2021-05-26 10:09] LABS: Alanine Aminotransferase 19 U/L (0-31); Albumin Level 4.1 g/dL (3.5-5.0); Alkaline Phosphatase 122 U/L (39-117); Aspartate Amino Transferase 19 U/L (5-31); Bilirubin Direct < 0.2 mg/dL (0.0-0.5); Bilirubin Total 0.2 mg/dL (0.0-1.0); Lipase 18 U/L (8-78); Magnesium 2.2 mg/dL (1.6-2.6); Total Protein 6.6 g/dL (6.5-8.0)
[2021-05-26 10:10] LABS: Appearance Urine CLEAR; Color Urine YELLOW; Glucose Urine UA NEG (NEG); Leukocyte Esterase Urine NEG (NEG); Nitrite Urine NEG (NEG); Specific Gravity - Urine <= 1.005 (1.005-1.025); Urine Blood NEG (NEG); Urine Ketones NEG (NEG); Urine Protein NEG (NEG-TRACE)
[2021-05-26 10:13] LABS: Troponin-I High Sensitivity < 3.5 ng/L (<3.5-17.0)
== END 2021-05-26 11:10 | disposition home or self-care (01) ==
PROVIDERS: Emergency Provider Emergency Medicine; PCP Internal Medicine Geriatric Medicine
DX: M79.7 Fibromyalgia (principal); R07.89 Other chest pain; R51.9 Headache, unspecified; M25.552 Pain in left hip; M25.551 Pain in right hip; Z20.822 Contact with and (suspected) exposure to COVID-19; Z79.899 Other long term (current) drug therapy
CPT/HCPCS: 36415; 71045; 72190; 80048; 80076; 81003; 83690; 83735; 84484; 85025; 87635; 93005; 99283; 99284

== ENCOUNTER 2021-06-05 17:49 | Emergency (ER) | payer MEDICAID, SELFPAY ==
[2021-06-05 18:15] VITALS: BP 114/53; PULSE 78; RESP 16; TEMP 36.6; O2SAT 97; BMI 38.4
[2021-06-05 20:41] VITALS: BP 113/64; PULSE 72; RESP 18; TEMP 37.2; O2SAT 98
--- NOTE | 2021-06-05 21:07 | ECG_ITS ---
Test Reason : CHEST PAIN Blood Pressure : / mmHG Vent. Rate : 067 BPM Atrial Rate : 067 BPM P-R Int : 162 ms QRS Dur : 092 ms QT Int : 446 ms P-R-T Axes : 021 028 052 degrees QTc Int : 471 ms Normal sinus rhythm Normal ECG When compared with ECG of 26-MAY-2021 09:36, Nonspecific ST abnormality is no longer Present Referred By: Antonino Lenz Electronically Signed By:BINA DINERO
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
[2021-06-05 21:22] VITALS: BP 108/73; PULSE 66; RESP 18; O2SAT 99
[2021-06-05 21:36] VITALS: BP 120/56; PULSE 69; RESP 18; O2SAT 98
[2021-06-05] MEDS: oxyCODONE HCl ER 10 MG TAB.ER.12H 15 MG PO (21:37)
[2021-06-05] MEDS: predniSONE 20 MG TABLET 40 MG PO (21:37)
[2021-06-05 21:38] VITALS: BP 120/56; PULSE 65
[2021-06-05] MEDS: Nitroglycerin 0.4 MG TAB.SUBL SUBLINGUAL (21:38)
[2021-06-05 21:45] LABS: COVID-19 Test Negative (Negative); IDNOW Serial# 9DD0AD1C
[2021-06-05 22:34] VITALS: BP 134/67; PULSE 69; RESP 18; TEMP 37.1; O2SAT 97
== END 2021-06-05 23:19 | disposition home or self-care (01) ==
PROVIDERS: Emergency Provider Emergency Medicine; PCP Internal Medicine Geriatric Medicine
DX: J45.909 Unspecified asthma, uncomplicated (principal); M79.7 Fibromyalgia; R51.9 Headache, unspecified; Z20.822 Contact with and (suspected) exposure to COVID-19; Z79.899 Other long term (current) drug therapy
CPT/HCPCS: 36415; 87635; 93005; 99284; 99285

== ENCOUNTER 2021-06-24 09:07 | Emergency (ER) | payer MEDICAID, SELFPAY ==
[2021-06-24 09:09] VITALS: BP 150/93; PULSE 70; RESP 18; TEMP 36.6; O2SAT 96; BMI 38.4
[2021-06-24 09:37] LABS: COVID-19 Test Negative (Negative); IDNOW Serial# 9DD0AD1C
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
[2021-06-24] MEDS: Morphine Sulfate Oral Sol 10 MG/5 ML SOLUTION 15 MG PO (10:36)
--- NOTE | 2021-06-24 11:08 | PC.NURSE ---
pt was c/o nausea, order from for ismael acquired. Pt sleeping in room. will medicate when awake.
[2021-06-24] MEDS: Ondansetron ODT 4 MG TAB.RAPDIS TRANSLINGU (11:34)
[2021-06-24] MEDS: HYDROmorphone HCl 2 MG TABLET PO (11:53)
== END 2021-06-24 12:12 | disposition home or self-care (01) ==
PROVIDERS: Emergency Provider Emergency Medicine; PCP Internal Medicine Geriatric Medicine
DX: M79.10 Myalgia, unspecified site (principal); G89.29 Other chronic pain; I10 Essential (primary) hypertension; J44.9 Chronic obstructive pulmonary disease, unspecified; Z20.822 Contact with and (suspected) exposure to COVID-19
CPT/HCPCS: 36415; 87635; 99283; 99284

== ENCOUNTER 2021-07-01 18:10 | Emergency (ER) | payer MEDICAID, SELFPAY ==
[2021-07-01 18:19] VITALS: BP 143/90; PULSE 84; RESP 18; TEMP 36.8; O2SAT 95; BMI 40.0
--- NOTE | 2021-07-01 18:56 | ED.WEAKNESS ---
HPI - Weakness General Chief complaint: Weakness Stated complaint: Weakness Time Seen by Provider: 07/01/21 18:56 Source: patient Mode of arrival: ambulatory Limitations: no limitations History of Present Illness HPI Narrative: Patient has history of chronic body pain on oxycodone 15 mg 4 times daily been [facility], physical therapy claims that she has multiple sclerosis diagnosed in 2016 but has not seen any neurologist yet comes here as she been falling very often with multiple body complaints last fall was last week when she came here and was seen patient is on prednisone 10 mg twice daily complaining of weakness in both lower extremity unable to get up from the bed without assistance also complaining of tingling sensation in the fingers both hands which is also chronic Related Data Home Medications Medication Instructions Recorded Confirmed albuterol sulfate 90 mcg/actuation 2 puff INHALATION Q6H PRN 02/28/21 02/28/21 aerosol inhaler aspirin 81 mg tablet,delayed 81 mg PO DAILY 02/28/21 02/28/21 release budesonide-formoterol HFA 160 2 puff INHALATION BID 02/28/21 02/28/21 mcg-4.5 mcg/actuation aerosol inhaler (Symbicort) diclofenac sodium 1 % topical gel 2 g TOPICAL QID 02/28/21 02/28/21 furosemide 20 mg tablet (Lasix) 10 mg PO QAM 02/28/21 02/28/21 hydrochlorothiazide 12.5 mg tablet 12.5 mg PO DAILY 02/28/21 02/28/21 isosorbide mononitrate 30 mg 30 mg PO DAILY 02/28/21 02/28/21 tablet,extended release 24 hr levothyroxine 75 mcg capsule 75 mcg PO DAILY 02/28/21 02/28/21 lidocaine 5 % topical patch 3 patch TOPICAL DAILY 02/28/21 02/28/21 meclizine 25 mg tablet 25 mg PO DAILY 02/28/21 02/28/21 montelukast 10 mg tablet 10 mg PO DAILY 02/28/21 02/28/21 (Singulair) nitroglycerin 0.3 mg sublingual 0.3 mg SUBLINGUAL Q5M PRN 02/28/21 02/28/21 tablet oxycodone 15 mg tablet 15 mg PO Q6H PRN 02/28/21 02/28/21 phenytoin sodium extended 100 mg 100 mg PO BID 02/28/21 02/28/21 capsule (Dilantin Extended) pregabalin 300 mg capsule (Lyrica) 300 mg PO BID 02/28/21 02/28/21 simvastatin 20 mg tablet 20 mg PO DAILY 02/28/21 02/28/21 albuterol sulfate mg INHALATION TID 05/24/21 clonazepam 1 mg tablet 1 mg PO BID PRN 05/24/21 dicyclomine 10 mg capsule 10 mg PO QID 05/24/21 docusate sodium 100 mg capsule 100 mg PO BEDTIME PRN 05/24/21 folic acid 1 mg tablet 1 mg PO DAILY 05/24/21 hydrocortisone 10 mg tablet 0 mg PO 05/24/21 levothyroxine 100 mcg tablet 100 mcg PO DAILY 05/24/21 meloxicam 15 mg tablet 15 mg PO DAILY 05/24/21 nicotine 14 mg/24 hr daily 1 patch TOPICAL DAILY 05/24/21 transdermal patch omeprazole 20 mg capsule,delayed 40 mg PO DAILY 05/24/21 release theophylline 400 mg 400 mg PO DAILY 05/24/21 capsule,extended release 24 hr ([place]-24) tiotropium bromide 18 mcg capsule 1 cap INHALATION DAILY 05/24/21 with inhalation device (Spiriva with HandiHaler) topiramate 25 mg tablet 25 mg PO 05/24/21 Previous Rx's Medication Instructions Recorded cyclobenzaprine 10 mg tablet 10 mg PO TID PRN #10 tab 06/22/20 lisinopril 10 mg tablet 10 mg PO DAILY #30 tab 07/24/20 prednisone 20 mg tablet 40 mg PO DAILY #10 tab 06/05/21 Allergies Allergy/AdvReac Type Severity Reaction Status Date / Time Penicillins [PENICILLINS] Allergy Severe HIVES Verified 07/01/21 18:19 amoxicillin [AMOXICILLIN] Allergy Intermediate HIVES Verified 07/01/21 18:19 ciprofloxacin [From CIPRO] Allergy Intermediate HIVES Verified 07/01/21 18:19 aspirin [ASA] Allergy Unknown ITCHING Verified 07/01/21 18:19 ibuprofen [From MOTRIN] Allergy Unknown GI UPSET Verified 07/01/21 18:19 latex [LATEX] Allergy Unknown RASH Verified 07/01/21 18:19 latex Allergy Unknown rash Verified 07/01/21 18:19 penicillin V Allergy Unknown rash Verified 07/01/21 18:19 Tylox Allergy Unknown rash Verified 07/01/21 18:19 acetaminophen [From TYLOX] AdvReac Severe NAUSEA & Verified 07/01/21 18:19 VOMITING Review of Systems Review of Systems: Yes all other systems are reviewed and are negative [facility] Past Medical History Medical History Asthma COPD (chronic obstructive pulmonary disease) Fibromyalgia HTN (hypertension) Hyperthyroidism Migraines Seizure Sleep apnea Surgical History Hx of section Hx of hysterectomy Hx of tubal ligation Family History Family History Mother Diabetes HTN (hypertension) Heart failure Maternal Aunt Breast cancer Maternal Grandmother Breast cancer Social History Social History Alcohol intake: never Patient Tobacco Use Status: Current everyday Tobacco user Cigarettes Per Day: 10 Years Smoked: 30 Substance Use Type: Prescription Drugs Advance Directives: No Advance Directives Information Provided: No Patient : No Physical Exam Vital Signs: Vital Signs: Last Vital Signs Temp 98.3 F 07/01/21 18:19 Pulse 78 07/01/21 20:26 Resp 20 07/01/21 20:26 BP 137/80 07/01/21 20:26 Pulse Ox 95 07/01/21 20:26 Body Mass Index 40.0 MDM - Weakness MDM Narrative Medical decision making narrative: Patient has chronic pain syndrome with multiple complaints workup is negative for Dilantin toxicity CRP 1. sed rate is only 9 to follow-up with neurologist as scheduled further diagnosis and treatment Lab Data Result diagrams: 07/01/21 19:36 07/01/21 19:36 Labs: Lab Results 07/01/21 07/01/21 07/01/21 Range/Units 19:36 19:36 19:36 WBC 12.5 H (4.8-10.8) X10*3/uL RBC 5.19 (4.20-5.50) X10*6/uL Hgb 15.0 (12.0-16.0) g/dl Hct 44.4 (37-47) % MCV 85.5 (80-98) fL MCH 28.9 (27.0-33.0) pg MCHC 33.8 (31.0-35.0) g/dl RDW 13.7 (11.0-16.0) % Plt Count 293 (160-400) X10*3/uL MPV 10.5 (9.4-12.3) fL Immature Gran % (Auto) 0.4 (0.0-0.4) % Neut % (Auto) 85.5 H (45-73) % Lymph % (Auto) 9.6 L (20-40) % [place] % (Auto) 3.8 (2-11) % Eos % (Auto) 0.3 (0-4) % Baso % (Auto) 0.4 (0-2) % Lymph # (Auto) 1.2 (1.2-4.9) X10*3/uL [place] # (Auto) 0.5 (0.1-1.2) X10*3/uL Eos # (Auto) 0.0 (0.0-0.4) X10*3/uL Baso # (Auto) 0.1 (0.0-0.2) X10*3/uL Abs Immat Gran (auto) 0.05 H (0.00-0.03) X10*3/uL Absolute Neuts (auto) 10.7 H (2.0-8.3) X10*3/uL Absolute Nucleated RBC 0.000 (0.0-0.012) X10*3/uL Nucleated RBC % (auto) 0.0 (0.0-0.2) /100WBC ESR 9 (0-20) MM/HR Sodium 140 (135-145) mmol/L Potassium 3.4 (3.3-5.1) mmol/L Chloride 102 (96-108) mmol/L Carbon Dioxide 24 (22-29) mmol/L Anion Gap 17 (12-20) BUN 13 (9-16) mg/dL Creatinine 0.89 (0.5-1.4) mg/dL Estim Creat Clear Calc 83.3 Estimated GFR > 60 Random Glucose 179 H (60-115) mg/dL Calcium 10.3 H D (8.4-10.2) mg/dL C-Reactive Protein 1.07 H (< or = 0.50) mg/dL Phenytoin (10.0-20.0) ug/mL 07/01/21 Range/Units 19:36 WBC (4.8-10.8) X10*3/uL RBC (4.20-5.50) X10*6/uL Hgb (12.0-16.0) g/dl Hct (37-47) % MCV (80-98) fL MCH (27.0-33.0) pg MCHC (31.0-35.0) g/dl RDW (11.0-16.0) % Plt Count (160-400) X10*3/uL MPV (9.4-12.3) fL Immature Gran % (Auto) (0.0-0.4) % Neut % (Auto) (45-73) % Lymph % (Auto) (20-40) % [place] % (Auto) (2-11) % Eos % (Auto) (0-4) % Baso % (Auto) (0-2) % Lymph # (Auto) (1.2-4.9) X10*3/uL [place] # (Auto) (0.1-1.2) X10*3/uL Eos # (Auto) (0.0-0.4) X10*3/uL Baso # (Auto) (0.0-0.2) X10*3/uL Abs Immat Gran (auto) (0.00-0.03) X10*3/uL Absolute Neuts (auto) (2.0-8.3) X10*3/uL Absolute Nucleated RBC (0.0-0.012) X10*3/uL Nucleated RBC % (auto) (0.0-0.2) /100WBC ESR (0-20) MM/HR Sodium (135-145) mmol/L Potassium (3.3-5.1) mmol/L Chloride (96-108) mmol/L Carbon Dioxide (22-29) mmol/L Anion Gap (12-20) BUN (9-16) mg/dL Creatinine (0.5-1.4) mg/dL Estim Creat Clear Calc Estimated GFR Random Glucose (60-115) mg/dL Calcium (8.4-10.2) mg/dL C-Reactive Protein (< or = 0.50) mg/dL Phenytoin 2.7 L* (10.0-20.0) ug/mL Discharge Plan Discharge Clinical Impression: Chronic pain syndrome, Frequent falls Patient Disposition: Home, Self-Care Instructions: Chronic Pain (ED), Fall Prevention (ED) Additional Instructions: Follow-up with your PCP/neurologist as scheduled for the diagnosis and treatment Prescriptions: No Action cyclobenzaprine 10 mg tablet 10 mg PO TID PRN (Reason: pain) Qty: 10 RF: 0 lisinopril 10 mg tablet 10 mg PO DAILY Qty: 30 RF: 0 prednisone 20 mg tablet 40 mg PO DAILY Qty: 10 RF: 0 oxycodone 15 mg tablet 15 mg PO Q6H PRNRF: 0 albuterol sulfate 90 mcg/actuation HFA aerosol inhaler 2 puff inhalation Q6H PRNRF: 0 budesonide-formoterol [Symbicort] 160-4.5 mcg/actuation HFA aerosol inhaler 2 puff inhalation BID RF: 0 nitroglycerin 0.3 mg tablet, sublingual 0.3 mg sublingual Q5M PRNRF: 0 levothyroxine 75 mcg capsule 75 mcg PO DAILY RF: 0 montelukast [Singulair] 10 mg tablet 10 mg PO DAILY RF: 0 pregabalin [Lyrica] 300 mg capsule 300 mg PO BID RF: 0 phenytoin sodium extended [Dilantin Extended] 100 mg capsule 100 mg PO BID RF: 0 isosorbide mononitrate 30 mg tablet extended release 24 hr 30 mg PO DAILY RF: 0 hydrochlorothiazide 12.5 mg tablet 12.5 mg PO DAILY RF: 0 furosemide [Lasix] 20 mg tablet 10 mg PO QAM RF: 0 diclofenac sodium 1 % gel 2 g topical QID RF: 0 lidocaine 5 % adhesive patch,medicated 3 patch topical DAILY RF: 0 simvastatin 20 mg tablet 20 mg PO DAILY RF: 0 aspirin 81 mg tablet,delayed release (DR/EC) 81 mg PO DAILY RF: 0 meclizine 25 mg tablet 25 mg PO DAILY RF: 0 Interventions: ED Discharge Assessment Last Done: 07/01/21 20:47 Discharge Date/Time: 07/01/21 20:48
[2021-07-01 19:40] LABS: MANUAL DIFF FLAG NO
[2021-07-01 19:50] LABS: Basophils Absolute Auto 0.1 X10*3/uL (0.0-0.2); Basophils Percent Auto 0.4 % (0-2); Eosinophils Percent Auto 0.3 % (0-4); Hematocrit 44.4 % (37-47); Imm Gran Abs Auto 0.05 X10*3/uL (0.00-0.03); Imm Gran Pct Auto 0.4 % (0.0-0.4); Lymphocytes Absolute Auto 1.2 X10*3/uL (1.2-4.9); Lymphocytes Percent Auto 9.6 % (20-40); Mean Corpuscular HGB Conc 33.8 g/dl (31.0-35.0); Mean Corpuscular Hemoglobin 28.9 pg (27.0-33.0); Mean Corpuscular Volume 85.5 fL (80-98); Mean Platelet Volume 10.5 fL (9.4-12.3); Monocytes Absolute Auto 0.5 X10*3/uL (0.1-1.2); Monocytes Percent Auto 3.8 % (2-11); Neutrophils Absolute Auto 10.7 X10*3/uL (2.0-8.3); Neutrophils Percent Auto 85.5 % (45-73); Platelet Count 293 X10*3/uL (160-400); Red Blood Count 5.19 X10*6/uL (4.20-5.50); Red Cell Distribution Width 13.7 % (11.0-16.0); White Blood Count 12.5 X10*3/uL (4.8-10.8)
[2021-07-01 19:58] LABS: Anion Gap 17 (12-20); Blood Urea Nitrogen 13 mg/dL (9-16); C Reactive Protein 1.07 mg/dL (< or = 0.50); Calcium 10.3 mg/dL (8.4-10.2); Carbon Dioxide 24 mmol/L (22-29); Chloride 102 mmol/L (96-108); Creatinine Clr Calc Pharmacy 83.3; Estimated Glomerular Filt Rate > 60; Glucose Random 179 mg/dL (60-115); Potassium 3.4 mmol/L (3.3-5.1); Sodium 140 mmol/L (135-145)
[2021-07-01 20:25] LABS: Erythrocyte Sedimentation Rate 9 MM/HR (0-20); Phenytoin Dilantin 2.7 ug/mL (10.0-20.0)
[2021-07-01 20:26] VITALS: BP 137/80; PULSE 78; RESP 20; O2SAT 95
[2021-07-01] MEDS: Ketorolac Tromethamine 60 MG/2 ML VIAL IM (20:27)
== END 2021-07-01 20:48 | disposition home or self-care (01) ==
PROVIDERS: Emergency Provider Internal Medicine; PCP Internal Medicine Geriatric Medicine
DX: G89.4 Chronic pain syndrome (principal); F17.210 Nicotine dependence, cigarettes, uncomplicated; Z91.81 History of falling; Z71.6 Tobacco abuse counseling; Z79.899 Other long term (current) drug therapy; Z79.82 Long term (current) use of aspirin
CPT/HCPCS: 36415; 80048; 80185; 85025; 85652; 86140; 96372; 99284; J1885

== ENCOUNTER 2021-07-09 15:23 | Emergency (ER) | payer MEDICAID, SELFPAY ==
--- NOTE | ~2021-07-09 | XR_ITS ---
EXAMINATION: XR CHEST CLINICAL INFORMATION: Cough, fever COMPARISON: Chest radiographs 05/26/2021, 08/13/2020 TECHNIQUE: Portable upright AP view of the chest was obtained. FINDINGS: The lungs are clear. There is no hyperinflation, airspace consolidation or groundglass opacity. The costophrenic sulci are well-defined. The vascularity is normal. The heart is within normal size. The hilar and mediastinal contours are unremarkable. No visible acute bony abnormality. XR/XR chest 1V IMPRESSION: Unremarkable examination.
[2021-07-09 15:29] VITALS: BP 129/69; PULSE 70; RESP 18; TEMP 36; O2SAT 98; BMI 41.4
--- NOTE | 2021-07-09 16:28 | ECG_ITS ---
Test Reason : NAUSEA Blood Pressure : / mmHG Vent. Rate : 065 BPM Atrial Rate : 065 BPM P-R Int : 148 ms QRS Dur : 084 ms QT Int : 452 ms P-R-T Axes : 052 035 077 degrees QTc Int : 470 ms Normal sinus rhythm RSR' or QR pattern in V1 suggests right ventricular conduction delay Otherwise normal ECG No significant changes seen Referred By: Dominique Stuart Electronically Signed By:GRACIA STRONG MD
--- NOTE | 2021-07-09 16:30 | ED.NAVMDI ---
HPI - Nausea/Vomiting/Diarrhea General Chief complaint: Nausea/Vomiting/Diarrhea Stated complaint: N/V/D weakness Time Seen by Provider: 07/09/21 16:19 Source: patient Mode of arrival: ambulatory Limitations: no limitations History of Present Illness HPI Narrative: Pt comes c/o generalized malayse, N/V/D for 2 weeks. patient states she is on steroids on her last day after an asthma exacerbation, she has been doing well breathing. Patient denies chest pain. Related Data Home Medications Medication Instructions Recorded Confirmed albuterol sulfate 90 mcg/actuation 2 puff INHALATION Q6H PRN 02/28/21 02/28/21 aerosol inhaler aspirin 81 mg tablet,delayed 81 mg PO DAILY 02/28/21 02/28/21 release budesonide-formoterol HFA 160 2 puff INHALATION BID 02/28/21 02/28/21 mcg-4.5 mcg/actuation aerosol inhaler (Symbicort) diclofenac sodium 1 % topical gel 2 g TOPICAL QID 02/28/21 02/28/21 furosemide 20 mg tablet (Lasix) 10 mg PO QAM 02/28/21 02/28/21 hydrochlorothiazide 12.5 mg tablet 12.5 mg PO DAILY 02/28/21 02/28/21 isosorbide mononitrate 30 mg 30 mg PO DAILY 02/28/21 02/28/21 tablet,extended release 24 hr levothyroxine 75 mcg capsule 75 mcg PO DAILY 02/28/21 02/28/21 lidocaine 5 % topical patch 3 patch TOPICAL DAILY 02/28/21 02/28/21 meclizine 25 mg tablet 25 mg PO DAILY 02/28/21 02/28/21 montelukast 10 mg tablet 10 mg PO DAILY 02/28/21 02/28/21 (Singulair) nitroglycerin 0.3 mg sublingual 0.3 mg SUBLINGUAL Q5M PRN 02/28/21 02/28/21 tablet oxycodone 15 mg tablet 15 mg PO Q6H PRN 02/28/21 02/28/21 phenytoin sodium extended 100 mg 100 mg PO BID 02/28/21 02/28/21 capsule (Dilantin Extended) pregabalin 300 mg capsule (Lyrica) 300 mg PO BID 02/28/21 02/28/21 simvastatin 20 mg tablet 20 mg PO DAILY 02/28/21 02/28/21 albuterol sulfate mg INHALATION TID 05/24/21 clonazepam 1 mg tablet 1 mg PO BID PRN 05/24/21 dicyclomine 10 mg capsule 10 mg PO QID 05/24/21 docusate sodium 100 mg capsule 100 mg PO BEDTIME PRN 05/24/21 folic acid 1 mg tablet 1 mg PO DAILY 05/24/21 hydrocortisone 10 mg tablet 0 mg PO 05/24/21 levothyroxine 100 mcg tablet 100 mcg PO DAILY 05/24/21 meloxicam 15 mg tablet 15 mg PO DAILY 05/24/21 nicotine 14 mg/24 hr daily 1 patch TOPICAL DAILY 05/24/21 transdermal patch omeprazole 20 mg capsule,delayed 40 mg PO DAILY 05/24/21 release theophylline 400 mg 400 mg PO DAILY 05/24/21 capsule,extended release 24 hr ([place]-24) tiotropium bromide 18 mcg capsule 1 cap INHALATION DAILY 05/24/21 with inhalation device (Spiriva with HandiHaler) topiramate 25 mg tablet 25 mg PO 05/24/21 Previous Rx's Medication Instructions Recorded cyclobenzaprine 10 mg tablet 10 mg PO TID PRN #10 tab 06/22/20 lisinopril 10 mg tablet 10 mg PO DAILY #30 tab 07/24/20 prednisone 20 mg tablet 40 mg PO DAILY #10 tab 06/05/21 loperamide 2 mg tablet 2 mg PO Q4H PRN #14 tab 07/09/21 (Anti-Diarrheal (loperamide)) ondansetron HCl 4 mg tablet 4 mg PO Q6H PRN #14 tab 07/09/21 (Zofran) Allergies Allergy/AdvReac Type Severity Reaction Status Date / Time Penicillins [PENICILLINS] Allergy Severe HIVES Verified 07/01/21 18:19 amoxicillin [AMOXICILLIN] Allergy Intermediate HIVES Verified 07/01/21 18:19 ciprofloxacin [From CIPRO] Allergy Intermediate HIVES Verified 07/01/21 18:19 aspirin [ASA] Allergy Unknown ITCHING Verified 07/01/21 18:19 ibuprofen [From MOTRIN] Allergy Unknown GI UPSET Verified 07/01/21 18:19 latex [LATEX] Allergy Unknown RASH Verified 07/01/21 18:19 latex Allergy Unknown rash Verified 07/01/21 18:19 penicillin V Allergy Unknown rash Verified 07/01/21 18:19 Tylox Allergy Unknown rash Verified 07/01/21 18:19 acetaminophen [From TYLOX] AdvReac Severe NAUSEA & Verified 07/01/21 18:19 VOMITING Review of Systems Review of Systems: Constitutional : No Weight loss, complaining of subjective fever, No Night Sweats, complaining of fatigue, generalized malaise ENT/Mouth : No Hearing loss, No Ear Pain, No Nasal Congestion, No Sinus Pain, No Hoarseness, No sore throat, No Rhinorrhea, No Swallowing Difficulty Eyes: No Eye Pain, No Swelling, No Redness, No Foreign Body, No Discharge, No Vision Changes Cardiovascular : No Chest Pain, No SOB, No Dyspnea on Exertion, No Orthopnea, No Edema, No Palpitations Respiratory : Cough improving, No Sputum, No Wheezing, No Smoke Exposure, No Dyspnea Gastrointestinal : Complaining of nausea, vomiting and diarrhea for 2 weeks, No Constipation, No abdominal Pain, No Hematochezia, No Melena Genitourinary : no irregular bleeding, No Dysuria, No Urinary Frequency, No Hematuria, No Urinary Incontinence, No Urgency, No Flank Pain, No Urinary Flow Changes, No Hesitancy Musculoskeletal : Complaining of chronic pain ?all over? Skin : No Skin Lesions, No rash Neuro : No Weakness, No Numbness, No Paresthesias, No Loss of Consciousness, No Dizziness, No Headache Psych : No Anxiety/Panic, No Depression, No SI/HI/AH/VH, No Social Issues, Heme/Lymph: No Bruising, No Bleeding,No Lymphadenopathy Endocrine : No Polyuria, No Polydipsia, No Temperature Intolerance [facility] Past Medical History Medical History Asthma COPD (chronic obstructive pulmonary disease) Fibromyalgia HTN (hypertension) Hyperthyroidism Migraines Seizure Sleep apnea Surgical History Hx of section Hx of hysterectomy Hx of tubal ligation Family History Family History Mother Diabetes HTN (hypertension) Heart failure Maternal Aunt Breast cancer Maternal Grandmother Breast cancer Social History Social History Alcohol intake: unknown Patient Tobacco Use Status: Current everyday Tobacco user Cigarettes Per Day: 10 Years Smoked: 30 Use of substances other than those prescribed or required for medical reasons: No Substance Use Type: Prescription Drugs Advance Directives: No Advance Directives Information Provided: No Patient : No Physical Exam Vital Signs: Vital Signs: Last Vital Signs Temp 97.4 F 07/09/21 19:31 Pulse 84 07/09/21 19:31 Resp 17 07/09/21 19:31 BP 119/77 07/09/21 19:31 Pulse Ox 96 07/09/21 19:31 Body Mass Index 41.4 Const: Other: Appearance: Alert. Oriented X3. No acute distress. Well-appearing Eyes: Pupils equal, round and reactive to light. ENT: Pharynx normal. Neck: Normal inspection. Neck supple. No lymph nodes noted. No crepitus CVS: Normal heart rate and rhythm. Pulses normal. Normal S1 and S2 Respiratory: No respiratory distress. Breath sounds normal. No Wheezing. No rales Abdomen: Soft and nontender. No rigidity. No distention. good BS x4 Skin: Skin warm and dry. Normal skin color. Normal skin turgor. Extremities: No lower extremity edema. No Lacerations. No Rash Neuro: Oriented X 3. No motor deficit. No sensory deficit. Moving all extermities. No slurred speech. Course Course Course Narrative: I discussed the labs with the patient, likely having a viral illness. Patient did not have any bowel movements with diarrhea today. Patient was given loperamide and Zofran, patient feeling better MDM - Nausea/Vomiting/Diarrhea Lab Data Result diagrams: 07/09/21 16:44 07/09/21 17:55 Labs: Lab Results 07/09/21 07/09/21 07/09/21 Range/Units 16:44 16:45 17:55 WBC 11.5 H (4.8-10.8) X10*3/uL RBC 5.30 (4.20-5.50) X10*6/uL Hgb 15.2 (12.0-16.0) g/dl Hct 46.3 (37.0-47.0) % MCV 87.4 (80.0-98.0) fL MCH 28.7 (27.0-33.0) pg MCHC 32.8 (31.0-35.0) g/dl RDW 13.6 (11.0-16.0) % Plt Count 305 (160-400) X10*3/uL MPV 10.4 (9.4-12.3) fL Immature Gran % (Auto) 0.7 H (0.0-0.4) % Neut % (Auto) 77.1 H (45-73) % Lymph % (Auto) 16.1 L (20-40) % [place] % (Auto) 4.3 (2-11) % Eos % (Auto) 1.1 (0-4) % Baso % (Auto) 0.7 (0-2) % Lymph # (Auto) 1.9 (1.2-4.9) X10*3/uL [place] # (Auto) 0.5 (0.1-1.2) X10*3/uL Eos # (Auto) 0.1 (0.0-0.4) X10*3/uL Baso # (Auto) 0.1 (0.0-0.2) X10*3/uL Abs Immat Gran (auto) 0.08 H (0.00-0.03) X10*3/uL Absolute Neuts (auto) 8.88 H (2.0-8.3) x10*3/uL Absolute Nucleated RBC 0.000 (0.0-0.012) X10*3/uL Nucleated RBC % (auto) 0.0 (0.0-0.2) /100WBC Sodium 139 (135-145) mmol/L Potassium 3.7 (3.3-5.1) mmol/L Chloride 102 (96-108) mmol/L Carbon Dioxide 28 (22-29) mmol/L Anion Gap 13 (12-20) BUN 10 (9-16) mg/dL Creatinine 0.76 (0.5-1.4) mg/dL Estim Creat Clear Calc 99.5 Estimated GFR > 60 Random Glucose 131 H (60-115) mg/dL Calcium 9.7 (8.4-10.2) mg/dL Total Bilirubin 0.4 (0.0-1.0) mg/dL Direct Bilirubin 0.2 (0.0-0.5) mg/dL AST 23 (5-31) U/L ALT 44 H (0-31) U/L Alkaline Phosphatase 110 (39-117) U/L Troponin I High Sens (<3.5-17.0) ng/L Total Protein 6.9 (6.5-8.0) g/dL Albumin 4.4 (3.5-5.0) g/dL Lipase 15 (8-78) U/L Urine Color Urine Appearance Urine pH (5.0-8.0) Ur Specific [place] Part (1.005-1.025) Urine Protein (NEG-TRACE) MG/DL Urine Glucose (UA) (NEG) MG/DL Urine Ketones (NEG) MG/DL Urine Blood (NEG) Urine Nitrite (NEG) Ur Leukocyte Esterase (NEG) Urine Opiates Screen (Not Detect) Urine Fentanyl Screen (Not Detect) Ur Barbiturates Screen (Not Detect) Ur Phencyclidine Scrn (Not Detect) Ur Amphetamines Screen (Not Detect) U Benzodiazepines Scrn (Not Detect) Urine Cocaine Screen (Not Detect) U Marijuana (THC) Screen (Not Detect) COVID-19 (DORON) Negative (Negative) COVID-19 Clin Com See Note 07/09/21 07/09/21 07/09/21 Range/Units 17:55 17:55 17:55 WBC (4.8-10.8) X10*3/uL RBC (4.20-5.50) X10*6/uL Hgb (12.0-16.0) g/dl Hct (37.0-47.0) % MCV (80.0-98.0) fL MCH (27.0-33.0) pg MCHC (31.0-35.0) g/dl RDW (11.0-16.0) % Plt Count (160-400) X10*3/uL MPV (9.4-12.3) fL Immature Gran % (Auto) (0.0-0.4) % Neut % (Auto) (45-73) % Lymph % (Auto) (20-40) % [place] % (Auto) (2-11) % Eos % (Auto) (0-4) % Baso % (Auto) (0-2) % Lymph # (Auto) (1.2-4.9) X10*3/uL [place] # (Auto) (0.1-1.2) X10*3/uL Eos # (Auto) (0.0-0.4) X10*3/uL Baso # (Auto) (0.0-0.2) X10*3/uL Abs Immat Gran (auto) (0.00-0.03) X10*3/uL Absolute Neuts (auto) (2.0-8.3) x10*3/uL Absolute Nucleated RBC (0.0-0.012) X10*3/uL Nucleated RBC % (auto) (0.0-0.2) /100WBC Sodium (135-145) mmol/L Potassium (3.3-5.1) mmol/L Chloride (96-108) mmol/L Carbon Dioxide (22-29) mmol/L Anion Gap (12-20) BUN (9-16) mg/dL Creatinine (0.5-1.4) mg/dL Estim Creat Clear Calc Estimated GFR Random Glucose (60-115) mg/dL Calcium (8.4-10.2) mg/dL Total Bilirubin (0.0-1.0) mg/dL Direct Bilirubin (0.0-0.5) mg/dL AST (5-31) U/L ALT (0-31) U/L Alkaline Phosphatase (39-117) U/L Troponin I High Sens < 3.5 (<3.5-17.0) ng/L Total Protein (6.5-8.0) g/dL Albumin (3.5-5.0) g/dL Lipase (8-78) U/L Urine Color YELLOW Urine Appearance CLEAR Urine pH 6.0 (5.0-8.0) Ur Specific [place] 1.010 (1.005-1.025) Urine Protein NEG (NEG-TRACE) MG/DL Urine Glucose (UA) NEG (NEG) MG/DL Urine Ketones NEG (NEG) MG/DL Urine Blood NEG (NEG) Urine Nitrite NEG (NEG) Ur Leukocyte Esterase NEG (NEG) Urine Opiates Screen POSITIVE H (Not Detect) Urine Fentanyl Screen Not Detected (Not Detect) Ur Barbiturates Screen Not Detected (Not Detect) Ur Phencyclidine Scrn Not Detected (Not Detect) Ur Amphetamines Screen Not Detected (Not Detect) U Benzodiazepines Scrn Not Detected (Not Detect) Urine Cocaine Screen Not Detected (Not Detect) U Marijuana (THC) Screen Not Detected (Not Detect) COVID-19 (DORON) (Negative) COVID-19 Clin Com Imaging Data Chest x-ray: Radiologist's impression: The lungs are clear. There is no hyperinflation, airspace consolidation or groundglass opacity. The costophrenic sulci are well-defined. The vascularity is normal. The heart is within normal size. The hilar and mediastinal contours are unremarkable. No visible acute bony abnormality. XR/XR chest 1V IMPRESSION: Unremarkable examination. ECG Data Attestation: I personally reviewed and interpreted this ECG as follows: (Sinus rhythm, heart rate 65, no ST segment depression or elevation, no T-wave inversion, QTC 470) Discharge Plan Discharge Clinical Impression: Nausea & vomiting Diarrhea Qualifiers: Diarrhea type: unspecified type Qualified Code(s): R19.7 - Diarrhea, unspecified Patient Disposition: Home, Self-Care Instructions: Acute Nausea and Vomiting (ED), Acute Diarrhea (ED) Additional Instructions: Drink plenty of fluids, especially with electrolytes such as Pedialyte, Powerade, Gatorade. Please follow-up with your primary care physician tomorrow. If you have any worsening or new symptoms, please return to the emergency room or call 911 Prescriptions: New ondansetron HCl [Zofran] 4 mg tablet 4 mg PO Q6H PRN (Reason: nausea and vomiting) Qty: 14 RF: 0 loperamide [Anti-Diarrheal (loperamide)] 2 mg tablet 2 mg PO Q4H PRN (Reason: loose stool) Qty: 14 RF: 0 No Action cyclobenzaprine 10 mg tablet 10 mg PO TID PRN (Reason: pain) Qty: 10 RF: 0 lisinopril 10 mg tablet 10 mg PO DAILY Qty: 30 RF: 0 prednisone 20 mg tablet 40 mg PO DAILY Qty: 10 RF: 0 oxycodone 15 mg tablet 15 mg PO Q6H PRNRF: 0 albuterol sulfate 90 mcg/actuation HFA aerosol inhaler 2 puff inhalation Q6H PRNRF: 0 budesonide-formoterol [Symbicort] 160-4.5 mcg/actuation HFA aerosol inhaler 2 puff inhalation BID RF: 0 nitroglycerin 0.3 mg tablet, sublingual 0.3 mg sublingual Q5M PRNRF: 0 levothyroxine 75 mcg capsule 75 mcg PO DAILY RF: 0 montelukast [Singulair] 10 mg tablet 10 mg PO DAILY RF: 0 pregabalin [Lyrica] 300 mg capsule 300 mg PO BID RF: 0 phenytoin sodium extended [Dilantin Extended] 100 mg capsule 100 mg PO BID RF: 0 isosorbide mononitrate 30 mg tablet extended release 24 hr 30 mg PO DAILY RF: 0 hydrochlorothiazide 12.5 mg tablet 12.5 mg PO DAILY RF: 0 furosemide [Lasix] 20 mg tablet 10 mg PO QAM RF: 0 diclofenac sodium 1 % gel 2 g topical QID RF: 0 lidocaine 5 % adhesive patch,medicated 3 patch topical DAILY RF: 0 simvastatin 20 mg tablet 20 mg PO DAILY RF: 0 aspirin 81 mg tablet,delayed release (DR/EC) 81 mg PO DAILY RF: 0 meclizine 25 mg tablet 25 mg PO DAILY RF: 0
[2021-07-09] MEDS: 0.9 % Sodium Chloride 1,000 ML 999 ML IVCONT (16:47)
[2021-07-09] MEDS: ondansetron HCL 4 MG/2 ML VIAL IVPUSH (16:50)
[2021-07-09] MEDS: Loperamide HCl 2 MG CAPSULE 4 MG PO (16:50)
[2021-07-09 16:53] LABS: MANUAL DIFF FLAG NO
[2021-07-09 16:55] LABS: Basophils Absolute Auto 0.1 X10*3/uL (0.0-0.2); Basophils Percent Auto 0.7 % (0-2); Eosinophils Absolute Auto 0.1 X10*3/uL (0.0-0.4); Eosinophils Percent Auto 1.1 % (0-4); Hematocrit 46.3 % (37.0-47.0); Hemoglobin 15.2 g/dl (12.0-16.0); Imm Gran Abs Auto 0.08 X10*3/uL (0.00-0.03); Imm Gran Pct Auto 0.7 % (0.0-0.4); Lymphocytes Absolute Auto 1.9 X10*3/uL (1.2-4.9); Lymphocytes Percent Auto 16.1 % (20-40); Mean Corpuscular HGB Conc 32.8 g/dl (31.0-35.0); Mean Corpuscular Hemoglobin 28.7 pg (27.0-33.0); Mean Corpuscular Volume 87.4 fL (80.0-98.0); Mean Platelet Volume 10.4 fL (9.4-12.3); Monocytes Absolute Auto 0.5 X10*3/uL (0.1-1.2); Monocytes Percent Auto 4.3 % (2-11); Neutrophils Absolute Auto 8.88 x10*3/uL (2.0-8.3); Neutrophils Percent Auto 77.1 % (45-73); Platelet Count 305 X10*3/uL (160-400); Red Cell Distribution Width 13.6 % (11.0-16.0); White Blood Count 11.5 X10*3/uL (4.8-10.8)
[2021-07-09 17:10] LABS: COVID-19 Test Negative (Negative); IDNOW Serial# 9DD0AD1C
[2021-07-09 18:05] LABS: Appearance Urine CLEAR; Color Urine YELLOW; Glucose Urine UA NEG (NEG); Leukocyte Esterase Urine NEG (NEG); Nitrite Urine NEG (NEG); Urine Blood NEG (NEG); Urine Ketones NEG (NEG); Urine Protein NEG (NEG-TRACE)
[2021-07-09 18:27] LABS: Amphetamine Screen Urine Not Detected (Not Detect); Barbiturates, Urine Not Detected (Not Detect); Benzodiazepines Screen Urine Not Detected (Not Detect); Cannabinoid Screen Urine Not Detected (Not Detect); Cocaine Screen Urine Not Detected (Not Detect); Fentanyl, urine Not Detected (Not Detect); Opiate Screen Urine POSITIVE (Not Detect); Phencyclidine Screen Urine Not Detected (Not Detect)
[2021-07-09 18:28] LABS: Alanine Aminotransferase 44 U/L (0-31); Albumin Level 4.4 g/dL (3.5-5.0); Alkaline Phosphatase 110 U/L (39-117); Anion Gap 13 (12-20); Aspartate Amino Transferase 23 U/L (5-31); Bilirubin Direct 0.2 mg/dL (0.0-0.5); Bilirubin Total 0.4 mg/dL (0.0-1.0); Blood Urea Nitrogen 10 mg/dL (9-16); Calcium 9.7 mg/dL (8.4-10.2); Carbon Dioxide 28 mmol/L (22-29); Chloride 102 mmol/L (96-108); Creatinine Clr Calc Pharmacy 99.5; Estimated Glomerular Filt Rate > 60; Glucose Random 131 mg/dL (60-115); Lipase 15 U/L (8-78); Potassium 3.7 mmol/L (3.3-5.1); Sodium 139 mmol/L (135-145); Total Protein 6.9 g/dL (6.5-8.0)
[2021-07-09 18:31] LABS: Troponin-I High Sensitivity < 3.5 ng/L (<3.5-17.0)
[2021-07-09 19:27] VITALS: BP 121/66; PULSE 68
[2021-07-09 19:28] VITALS: BP 122/69; PULSE 76
[2021-07-09 19:29] VITALS: BP 119/77; PULSE 73
[2021-07-09 19:31] VITALS: BP 119/77; PULSE 84; RESP 17; TEMP 36.3; O2SAT 96
== END 2021-07-09 20:30 | disposition home or self-care (01) ==
PROVIDERS: Emergency Provider Emergency Medicine; PCP Internal Medicine Geriatric Medicine
DX: R11.2 Nausea with vomiting, unspecified (principal); R19.7 Diarrhea, unspecified; I10 Essential (primary) hypertension; J44.9 Chronic obstructive pulmonary disease, unspecified; Z79.899 Other long term (current) drug therapy; Z20.822 Contact with and (suspected) exposure to COVID-19
CPT/HCPCS: 36415; 71045; 80048; 80076; 80307; 81003; 83690; 84484; 85025; 87635; 93005; 96361; 96374; 99285; J2405

== ENCOUNTER 2021-07-25 12:52 | Outpatient (REF) | payer MEDICAID, SELFPAY ==
--- NOTE | ~2021-07-25 | MR_ITS ---
EXAMINATION: MR PELVIS WITHOUT AND WITH CONTRAST CLINICAL INFORMATION: Pelvic pain in anterior left area. 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 COMPARISON: CT of the abdomen and pelvis 05/11/2019 TECHNIQUE: Multiplanar and multi sequential imaging of the pelvis was performed on a high-field 1.5T MRI before and after the uneventful administration of 10 mL of Gadavist gadolinium-based IV contrast. FINDINGS: The uterus is surgically absent. The ovaries are not visualized and may also have been removed or are small due to the patient's postmenopausal status. No adnexal mass is demonstrated. The bladder is normal in appearance. No focal wall thickening or mass. Normal urethra. No pelvic lymphadenopathy. The visualized vasculature is normal. There is diverticulosis of visualized portions of the sigmoid colon. There is some questionable mild edema and wall thickening of the proximal sigmoid colon (series 7, images 6-7). There is fatty signal within the bone marrow of the sacrum and coccyx, which may be related to prior treatment change or age-related changes. No suspicious focal marrow signal abnormality. There are postsurgical changes of the lower anterior abdominal wall. There is a small, fat-containing left inguinal hernia. MR/MR pelvis wo/w con IMPRESSION: Questionable mild edema and wall thickening of the proximal sigmoid colon at the site of diverticula, which may represent mild diverticulitis. Consider further evaluation with CT of the abdomen and pelvis. Small, fat-containing left inguinal hernia. Status post hysterectomy. No adnexal mass is demonstrated. No pelvic lymphadenopathy. Normal appearance of the bladder.
== END 2021-07-25 12:53 | disposition home or self-care (01) ==
LOC: HO.MRI 12:52
DX: R10.2 Pelvic and perineal pain (principal)
CPT/HCPCS: 72197; A9585

== ENCOUNTER 2021-09-05 09:18 | Emergency (ER) | payer MEDICAID, SELFPAY ==
--- NOTE | 2021-09-05 | ECG_ITS ---
Test Reason : weakness Blood Pressure : / mmHG Vent. Rate : 069 BPM Atrial Rate : 069 BPM P-R Int : 162 ms QRS Dur : 086 ms QT Int : 434 ms P-R-T Axes : 040 009 031 degrees QTc Int : 465 ms Normal sinus rhythm Normal ECG When compared with ECG of 09-JUL-2021 17:01, No significant change was found Referred By: Luis Patton Electronically Signed By:Satish Pineda
--- NOTE | ~2021-09-05 | CT_ITS ---
EXAMINATION: CT HEAD WITHOUT CONTRAST CLINICAL INFORMATION: Numbness. Tingling. COMPARISON: CT head 01/31/2019 TECHNIQUE: Contiguous axial imaging was performed from the skull base to vertex without intravenous administration of contrast. Coronal and sagittal reformatted images are performed at the CT scanner. [This CT examination was performed using dose optimization techniques as appropriate, variously including the following: *Automated exposure control *Adjustment of mA and/or kV according to patient size (this includes techniques or standardized protocols for targeted exams where dose is matched to indication/reason for exam; i.e. extremities or head) *Use of iterative reconstruction technique] DLP: 659 mGy-cm. FINDINGS: There is no evidence of acute intracranial hemorrhage or territorial infarction. No abnormal mass-effect or midline shift is seen. Adams to white matter differentiation is well preserved. No extra-axial fluid collections are identified. The ventricles are normal in size. There is no abnormal attenuation within the brain parenchyma. There is no osseous abnormality. The mastoid air cells and visualized portions of the paranasal sinuses are well-aerated. CT/CT head/brain wo con IMPRESSION: No acute intracranial pathology.
[2021-09-05 10:32] VITALS: BP 103/49; PULSE 70; RESP 18; TEMP 37; O2SAT 93; BMI 40.0
[2021-09-05 11:49] LABS: Baso%MD 0.8 %; Eos%MD 2.1 %; Hematocrit 42.4 % (37.0-47.0); Hemoglobin 13.7 g/dl (12.0-16.0); IG%MD 0.2 %; Lymph%MD 26.8 %; Mean Corpuscular HGB Conc 32.3 g/dl (31.0-35.0); Mean Corpuscular Hemoglobin 28.9 pg (27.0-33.0); Mean Corpuscular Volume 89.5 fL (80.0-98.0); Mean Platelet Volume 10.3 fL (9.4-12.3); Mono%MD 4.5 %; Neut%MD 65.6 %; Platelet Count 296 X10*3/uL (160-400); Red Blood Count 4.74 X10*6/uL (4.20-5.50); Red Cell Distribution Width 13.5 % (11.0-16.0); White Blood Count 6.2 X10*3/uL (4.8-10.8)
[2021-09-05 12:03] LABS: Anion Gap 10 (12-20); Blood Urea Nitrogen 13 mg/dL (9-16); Carbon Dioxide 31 mmol/L (22-29); Chloride 104 mmol/L (96-108); Creatinine Clr Calc Pharmacy 109.1; Estimated Glomerular Filt Rate > 60; Potassium 3.8 mmol/L (3.3-5.1); Sodium 141 mmol/L (135-145)
[2021-09-05 12:44] LABS: Atypical Lymph Absolute Manual 0.1 x10*3/uL; Atypical Lymphs Percent Manual 1 % (0-6); Band Neutrophils Percent 0 % (3-5); Basophils Abs Manual 0.1 X10*3/uL (0.0-0.2); Basophils Percent Manual 2 % (0-2); Lymphocytes Absolute Manual 1.5 X10*3/uL (1.2-4.9); Lymphocytes Percent Manual 24 % (20-40); Monocytes Absolute Manual 0.1 X10*3/uL (0.1-1.2); Monocytes Percent Manual 1 % (2-11); Neutrophils Absolute Manual 4.5 X10*3/uL (2.0-8.3); Neutrophils Percent Manual 72 % (45-73)
[2021-09-05 12:45] LABS: Platelet Estimate NORMAL (NORMAL); RBC Morphology NORMAL
[2021-09-05 12:46] LABS: Platelet Morphology Comment NORMAL
--- NOTE | 2021-09-05 19:39 | ED.GENADULT ---
HPI - General Adult General Chief complaint: General Medical Stated complaint: pain all over Source: patient Mode of arrival: ambulatory Limitations: no limitations History of Present Illness HPI narrative: 60-year-old female presents to the emergency department for multiple complaints. States that she has generalized weakness, fatigue, full body pain, numbness and tingling to all extremities, and loss of balance. Onset (ago): month(s) Location: head, pelvis, left, right, upper extremity and lower extremity Severity: severe Severity scale (1-10): 10 Quality: aching and constant Pain Consistency: constant Relieving factors: none Exacerbating factors: movement Associated symptoms: headaches, malaise and weakness Treatments prior to arrival: none Related Data Home Medications Medication Instructions Recorded Confirmed albuterol sulfate 90 mcg/actuation 2 puff INHALATION Q6H PRN 02/28/21 02/28/21 aerosol inhaler aspirin 81 mg tablet,delayed 81 mg PO DAILY 02/28/21 02/28/21 release budesonide-formoterol HFA 160 2 puff INHALATION BID 02/28/21 02/28/21 mcg-4.5 mcg/actuation aerosol inhaler (Symbicort) diclofenac sodium 1 % topical gel 2 g TOPICAL QID 02/28/21 02/28/21 furosemide 20 mg tablet (Lasix) 10 mg PO QAM 02/28/21 02/28/21 hydrochlorothiazide 12.5 mg tablet 12.5 mg PO DAILY 02/28/21 02/28/21 isosorbide mononitrate 30 mg 30 mg PO DAILY 02/28/21 02/28/21 tablet,extended release 24 hr levothyroxine 75 mcg capsule 75 mcg PO DAILY 02/28/21 02/28/21 lidocaine 5 % topical patch 3 patch TOPICAL DAILY 02/28/21 02/28/21 meclizine 25 mg tablet 25 mg PO DAILY 02/28/21 02/28/21 montelukast 10 mg tablet 10 mg PO DAILY 02/28/21 02/28/21 (Singulair) nitroglycerin 0.3 mg sublingual 0.3 mg SUBLINGUAL Q5M PRN 02/28/21 02/28/21 tablet oxycodone 15 mg tablet 15 mg PO Q6H PRN 02/28/21 02/28/21 phenytoin sodium extended 100 mg 100 mg PO BID 02/28/21 02/28/21 capsule (Dilantin Extended) pregabalin 300 mg capsule (Lyrica) 300 mg PO BID 02/28/21 02/28/21 simvastatin 20 mg tablet 20 mg PO DAILY 02/28/21 02/28/21 albuterol sulfate mg INHALATION TID 05/24/21 clonazepam 1 mg tablet 1 mg PO BID PRN 05/24/21 dicyclomine 10 mg capsule 10 mg PO QID 05/24/21 docusate sodium 100 mg capsule 100 mg PO BEDTIME PRN 05/24/21 folic acid 1 mg tablet 1 mg PO DAILY 05/24/21 hydrocortisone 10 mg tablet 0 mg PO 05/24/21 levothyroxine 100 mcg tablet 100 mcg PO DAILY 05/24/21 meloxicam 15 mg tablet 15 mg PO DAILY 05/24/21 nicotine 14 mg/24 hr daily 1 patch TOPICAL DAILY 05/24/21 transdermal patch omeprazole 20 mg capsule,delayed 40 mg PO DAILY 05/24/21 release theophylline 400 mg 400 mg PO DAILY 05/24/21 capsule,extended release 24 hr ([place]-24) tiotropium bromide 18 mcg capsule 1 cap INHALATION DAILY 05/24/21 with inhalation device (Spiriva with HandiHaler) topiramate 25 mg tablet 25 mg PO 05/24/21 Previous Rx's Medication Instructions Recorded cyclobenzaprine 10 mg tablet 10 mg PO TID PRN #10 tab 06/22/20 lisinopril 10 mg tablet 10 mg PO DAILY #30 tab 07/24/20 prednisone 20 mg tablet 40 mg PO DAILY #10 tab 06/05/21 loperamide 2 mg tablet 2 mg PO Q4H PRN #14 tab 07/09/21 (Anti-Diarrheal (loperamide)) ondansetron HCl 4 mg tablet 4 mg PO Q6H PRN #14 tab 07/09/21 (Zofran) Allergies Allergy/AdvReac Type Severity Reaction Status Date / Time Penicillins [PENICILLINS] Allergy Severe HIVES Verified 07/01/21 18:19 amoxicillin [AMOXICILLIN] Allergy Intermediate HIVES Verified 07/01/21 18:19 ciprofloxacin [From CIPRO] Allergy Intermediate HIVES Verified 07/01/21 18:19 aspirin [ASA] Allergy Unknown ITCHING Verified 07/01/21 18:19 ibuprofen [From MOTRIN] Allergy Unknown GI UPSET Verified 07/01/21 18:19 latex [LATEX] Allergy Unknown RASH Verified 07/01/21 18:19 latex Allergy Unknown rash Verified 07/01/21 18:19 penicillin V Allergy Unknown rash Verified 07/01/21 18:19 Tylox Allergy Unknown rash Verified 07/01/21 18:19 acetaminophen [From TYLOX] AdvReac Severe NAUSEA & Verified 07/01/21 18:19 VOMITING Review of Systems Review of Systems: Constitutional: No Fever, No Chills ENT/Mouth: No Ear Pain, No Hoarseness, No sore throat Eyes: No Eye Pain, No Swelling, No Redness, No Foreign Body Cardiovascular: No Chest Pain, No SOB Respiratory: No Cough, No Dyspnea Gastrointestinal: No Nausea, No Vomiting, No Diarrhea, No abdominal Pain Genitourinary: No Dysuria, No Hematuria Musculoskeletal: positive all over body pain, positive Myalgias, No Joint Swelling Skin: No Skin lacerations, No rash Neuro: Positive Weakness, positive Numbness, positive Paresthesias, No Loss of Consciousness, No Dizziness, No Headache Psych: No Anxiety/Panic, No Depression Heme/Lymph: no easy bruising, no Lymphadenopathy Endocrine: No Polyuria, No Polydipsia Yes all other systems are reviewed and are negative PMFSH Past Medical History Attestation statement: The following information was validated with the patient. Source: old records reviewed Medical History Asthma COPD (chronic obstructive pulmonary disease) Fibromyalgia HTN (hypertension) Hyperthyroidism Migraines Seizure Sleep apnea Surgical History Hx of section Hx of hysterectomy Hx of tubal ligation Family History Family History Mother Diabetes HTN (hypertension) Heart failure Maternal Aunt Breast cancer Maternal Grandmother Breast cancer Social History Social History Alcohol intake: unknown Patient Tobacco Use Status: Current everyday Tobacco user Cigarettes Per Day: 10 Years Smoked: 30 Substance Use Type: Prescription Drugs Advance Directives: No Advance Directives Information Provided: No Patient : No Physical Exam Vital Signs: Vital Signs: Last Vital Signs Temp 97.9 F 09/05/21 19:48 Pulse 73 09/05/21 19:48 Resp 18 09/05/21 19:48 BP 131/79 09/05/21 19:48 Pulse Ox 97 09/05/21 19:48 BMI result Body Mass Index 40.0 Appearance: Alert. Oriented X3. No acute distress. Eyes: Pupils equal, round and reactive to light. Sclera nonicteric. No nystagmus. ENT: Pharynx normal. Moist mucous membranes. Neck: Normal inspection. Neck supple. CVS: Normal heart rate and rhythm. Pulses normal. Respiratory: No respiratory distress. Breath sounds normal. Abdomen: Soft and nontender. Obese. Skin: Skin warm and dry. Normal skin color. Normal skin turgor. Extremities: No lower extremity edema. Moves all extremities against resistance. Neuro: No motor deficit. No sensory deficit. Cranial nerves 2-12 intact. Course Course Course Narrative: Nilda wait time 10 hours and 30 minutes 60-year-old female presents with multiple complaints. Stated that she she had a box fall on her foot several months ago, was seen by an orthopedic provider who referred her to Physical therapy. Patient has been in physical therapy for a few months, stated that pain has increased since physical therapy, pain has now moved up from her foot and ankle to her pelvis and hips. I did discuss that this pain has been ongoing for several months and this is not an emergent situation. Patient then stated that she was having numbness and tingling in all of her extremities, and that she has had multiple falls but not in the past that several days. Patient stated that she was being worked up by Neurology, and thinks that she has MS. Patient is requesting imaging because she wants know it is wrong with her. I did advise her that her symptoms have been ongoing, that she should follow-up with her primary care physician for outpatient imaging. Patient then stated that she had history of TIA, states that the numbness in her right arm is consistent with prior TIAs. Physical exam is normal. Neurovascularly intact. Cranial nerves 2-12 intact. Moves all extremities against resistance. Patient ambulatory upon arrival. After discussion with attending, plan is for CT scan of head. 9:[address] head negative. Urinalysis is pending. Patient stated that she does not want wait for her urinalysis, and that she would like to go home to her daughter. Patient verbalized understanding of and agrees to plan of care discharge home. Medical Decision Making Differential Diagnosis Differential Diagnosis: TIA, CVA Medical Records Medical records reviewed: Yes I reviewed the patient's medical records. Lab Data Lab results reviewed: Yes I reviewed the patient's lab results. Result diagrams: 09/05/21 11:43 09/05/21 11:43 Labs: Lab Results 09/05/21 09/05/21 09/05/21 Range/Units 11:43 11:43 19:54 WBC 6.2 (4.8-10.8) X10*3/uL RBC 4.74 (4.20-5.50) X10*6/uL Hgb 13.7 (12.0-16.0) g/dl Hct 42.4 (37.0-47.0) % MCV 89.5 (80.0-98.0) fL MCH 28.9 (27.0-33.0) pg MCHC 32.3 (31.0-35.0) g/dl RDW 13.5 (11.0-16.0) % Plt Count 296 (160-400) X10*3/uL MPV 10.3 (9.4-12.3) fL Absolute Nucleated RBC 0.000 (0.0-0.012) X10*3/uL Nucleated RBC % (auto) 0.0 (0.0-0.2) /100WBC Neutrophils % (Manual) 72 (45-73) % Band Neutrophils % 0 L (3-5) % Lymphocytes % (Manual) 24 (20-40) % Atypical Lymphs % (Man) 1 (0-6) % Monocytes % (Manual) 1 L (2-11) % Basophils % (Manual) 2 (0-2) % Abs Neuts (Manual) 4.5 (2.0-8.3) X10*3/uL Lymphocytes # (Manual) 1.5 (1.2-4.9) X10*3/uL Atyp Lymphs # (Manual) 0.1 x10*3/uL Monocytes # (Manual) 0.1 (0.1-1.2) X10*3/uL Basophils # (Manual) 0.1 (0.0-0.2) X10*3/uL Platelet Estimate NORMAL (NORMAL) Plt Morphology Comment NORMAL RBC Morphology NORMAL Sodium 141 (135-145) mmol/L Potassium 3.8 (3.3-5.1) mmol/L Chloride 104 (96-108) mmol/L Carbon Dioxide 31 H (22-29) mmol/L Anion Gap 10 L (12-20) BUN 13 (9-16) mg/dL Creatinine 0.68 (0.5-1.4) mg/dL Estim Creat Clear Calc 109.1 Estimated GFR > 60 Urine Color Urine Appearance Urine pH (5.0-8.0) Ur Specific [place] (1.005-1.025) Urine Protein (NEG-TRACE) MG/DL Urine Glucose (UA) (NEG) MG/DL Urine Ketones (NEG) MG/DL Urine Blood (NEG) Urine Nitrite (NEG) Ur Leukocyte Esterase (NEG) Urine RBC (0) /HPF Urine WBC (0-4) /HPF Ur Squamous Epith Cells /LPF Urine Bacteria /LPF Influenza Type A (PCR) NEGATIVE (Negative) Influenza Type B (PCR) NEGATIVE (Negative) RSV RNA Qual (PCR) NEGATIVE (Negative) SARS-CoV-2 RNA (RT-PCR) NEGATIVE (Negative) 09/05/21 Range/Units 21:47 WBC (4.8-10.8) X10*3/uL RBC (4.20-5.50) X10*6/uL Hgb (12.0-16.0) g/dl Hct (37.0-47.0) % MCV (80.0-98.0) fL MCH (27.0-33.0) pg MCHC (31.0-35.0) g/dl RDW (11.0-16.0) % Plt Count (160-400) X10*3/uL MPV (9.4-12.3) fL Absolute Nucleated RBC (0.0-0.012) X10*3/uL Nucleated RBC % (auto) (0.0-0.2) /100WBC Neutrophils % (Manual) (45-73) % Band Neutrophils % (3-5) % Lymphocytes % (Manual) (20-40) % Atypical Lymphs % (Man) (0-6) % Monocytes % (Manual) (2-11) % Basophils % (Manual) (0-2) % Abs Neuts (Manual) (2.0-8.3) X10*3/uL Lymphocytes # (Manual) (1.2-4.9) X10*3/uL Atyp Lymphs # (Manual) x10*3/uL Monocytes # (Manual) (0.1-1.2) X10*3/uL Basophils # (Manual) (0.0-0.2) X10*3/uL Platelet Estimate (NORMAL) Plt Morphology Comment RBC Morphology Sodium (135-145) mmol/L Potassium (3.3-5.1) mmol/L Chloride (96-108) mmol/L Carbon Dioxide (22-29) mmol/L Anion Gap (12-20) BUN (9-16) mg/dL Creatinine (0.5-1.4) mg/dL Estim Creat Clear Calc Estimated GFR Urine Color YELLOW Urine Appearance CLEAR Urine pH 6.0 (5.0-8.0) Ur Specific [place] 1.020 (1.005-1.025) Urine Protein NEG (NEG-TRACE) MG/DL Urine Glucose (UA) NEG (NEG) MG/DL Urine Ketones NEG (NEG) MG/DL Urine Blood NEG (NEG) Urine Nitrite POS H (NEG) Ur Leukocyte Esterase 2+ H (NEG) Urine RBC 1-4 (0) /HPF Urine WBC 30-49 H (0-4) /HPF Ur Squamous Epith Cells 1+ /LPF Urine Bacteria 2+ /LPF Influenza Type A (PCR) (Negative) Influenza Type B (PCR) (Negative) RSV RNA Qual (PCR) (Negative) SARS-CoV-2 RNA (RT-PCR) (Negative) Imaging Data CT head: Attestation: I personally reviewed and interpreted this imaging study as follows: Radiologist's impression: FINDINGS: There is no evidence of acute intracranial hemorrhage or territorial infarction. No abnormal mass-effect or midline shift is seen. Adams to white matter differentiation is well preserved. No extra-axial fluid collections are identified. The ventricles are normal in size. There is no abnormal attenuation within the brain parenchyma. There is no osseous abnormality. The mastoid air cells and visualized portions of the paranasal sinuses are well-aerated. ? CT/CT head/brain wo con IMPRESSION: No acute intracranial pathology. ECG Data Attestation: I personally reviewed and interpreted this ECG as follows: Prior ECG tracings: available for review Interpretation: Vent. Rate : 069 BPM ? ? Atrial Rate : 069 BPM ?? P-R Int : 162 ms? QRS Dur : 086 ms ? ? QT Int : 434 ms ? ? ? P-R-T Axes : 040 009 031 degrees ?? QTc Int : 465 ms ? Normal sinus rhythm Normal ECG When compared with ECG of 09-JUL-2021 17:01, No significant change was found 05-SEP-2021 11:47:12 Discharge Plan Discharge Clinical Impression: Fibromyalgia, Total body pain Patient Disposition: Home, Self-Care Instructions: Fibromyalgia (ED) Additional Instructions: You presented to the emergency department for multiple complaints. CT scan of head is negative for acute findings requiring emergent intervention. Please follow-up with primary care physician and Neurology as scheduled. Thank you for choosing this emergency department for evaluation. Please follow-up with primary care physician as needed. Return to the emergency department for any new, concerning, or worsening symptoms. Prescriptions: No Action cyclobenzaprine 10 mg tablet 10 mg PO TID PRN (Reason: pain) Qty: 10 RF: 0 lisinopril 10 mg tablet 10 mg PO DAILY Qty: 30 RF: 0 prednisone 20 mg tablet 40 mg PO DAILY Qty: 10 RF: 0 ondansetron HCl [Zofran] 4 mg tablet 4 mg PO Q6H PRN (Reason: nausea and vomiting) Qty: 14 RF: 0 loperamide [Anti-Diarrheal (loperamide)] 2 mg tablet 2 mg PO Q4H PRN (Reason: loose stool) Qty: 14 RF: 0 oxycodone 15 mg tablet 15 mg PO Q6H PRNRF: 0 albuterol sulfate 90 mcg/actuation HFA aerosol inhaler 2 puff inhalation Q6H PRNRF: 0 budesonide-formoterol [Symbicort] 160-4.5 mcg/actuation HFA aerosol inhaler 2 puff inhalation BID RF: 0 nitroglycerin 0.3 mg tablet, sublingual 0.3 mg sublingual Q5M PRNRF: 0 levothyroxine 75 mcg capsule 75 mcg PO DAILY RF: 0 montelukast [Singulair] 10 mg tablet 10 mg PO DAILY RF: 0 pregabalin [Lyrica] 300 mg capsule 300 mg PO BID RF: 0 phenytoin sodium extended [Dilantin Extended] 100 mg capsule 100 mg PO BID RF: 0 isosorbide mononitrate 30 mg tablet extended release 24 hr 30 mg PO DAILY RF: 0 hydrochlorothiazide 12.5 mg tablet 12.5 mg PO DAILY RF: 0 furosemide [Lasix] 20 mg tablet 10 mg PO QAM RF: 0 diclofenac sodium 1 % gel 2 g topical QID RF: 0 lidocaine 5 % adhesive patch,medicated 3 patch topical DAILY RF: 0 simvastatin 20 mg tablet 20 mg PO DAILY RF: 0 aspirin 81 mg tablet,delayed release (DR/EC) 81 mg PO DAILY RF: 0 meclizine 25 mg tablet 25 mg PO DAILY RF: 0 Interventions: ED Discharge Assessment Last Done: 09/05/21 22:07 Discharge Date/Time: 09/05/21 22:08
[2021-09-05 19:48] VITALS: BP 131/79; PULSE 73; RESP 18; TEMP 36.6; O2SAT 97
[2021-09-05 20:41] LABS: Influenza A PCR NEGATIVE (Negative); Influenza B PCR NEGATIVE (Negative); Resp Syncy Virus RNA Qual PCR NEGATIVE (Negative); SARS COV2 PCR INHOUSE NEGATIVE (Negative)
[2021-09-05 21:58] LABS: Appearance Urine CLEAR; Color Urine YELLOW; Glucose Urine UA NEG (NEG); Leukocyte Esterase Urine 2+ (NEG); Nitrite Urine POS (NEG); UACC Culture Trigger YES; Urine Blood NEG (NEG); Urine Ketones NEG (NEG); Urine Protein NEG (NEG-TRACE)
[2021-09-05 22:07] LABS: Bacteria Urine 2+ /LPF; Squamous Epithelial Cell Urine 1+ /LPF; UACC CULT YES; WBC Urine 30-49 /HPF (0-4)
== END 2021-09-05 22:08 | disposition home or self-care (01) ==
PROVIDERS: Emergency Medicine; Nurse Practitioner Family; Emergency Provider Emergency Medicine Emergency Medical Services; PCP Internal Medicine Geriatric Medicine
DX: N39.0 Urinary tract infection, site not specified (principal); M79.7 Fibromyalgia; M79.10 Myalgia, unspecified site; Z20.822 Contact with and (suspected) exposure to COVID-19; R53.1 Weakness; I10 Essential (primary) hypertension
CPT/HCPCS: 0241U; 36415; 70450; 80051; 81001; 82565; 84520; 85007; 85027; 87086; 87088; 87186; 93005; 99284

== ENCOUNTER → 2021-10-30 10:18 | Outpatient (BNVA) | payer MEDICAID, SELFPAY | PROVIDERS: PCP Internal Medicine Geriatric Medicine | DX: R33.9 Retention of urine, unspecified (principal) | CPT/HCPCS: 99212 ==

== ENCOUNTER 2021-11-12 20:42 | Emergency (ER) | payer MEDICAID, SELFPAY ==
--- NOTE | ~2021-11-12 | CT_ITS ---
EXAMINATION: NONCONTRAST HEAD CT NONCONTRAST CERVICAL SPINE CT INDICATION INFORMATION: Loss of consciousness, headache, neck pain COMPARISON: 09/05/2021 TECHNIQUE: Separate noncontrast CT examinations of the head and cervical spine were performed. Coronal head CT images and coronal and sagittal cervical spine images were created at the technologist workstation. DLP: 1443 mGy-cm DOSE LOWERING TECHNIQUES: This CT examination was performed using dose optimization techniques as appropriate, variously including the following: - Automated exposure control - Adjustment of mA and/or kV according to patient size (this includes techniques or standardized protocols for targeted exams were dose is matched to indication/reason for exam; i.e. extremities or head) - Use of iterative reconstruction technique FINDINGS: Head: There is no evidence of acute intracranial hemorrhage or territorial infarction. No abnormal mass-effect or midline shift is seen. Adams to white matter differentiation is well preserved. No extra-axial fluid collections are identified. The ventricles are normal in size. There is no abnormal attenuation within the brain parenchyma. The osseous structures and soft tissues are normal. The mastoid air cells and visualized portions of the paranasal sinuses are well-aerated. Cervical spine: There is anatomic alignment of the vertebral bodies and posterior elements. Vertebral body heights are maintained. Intervertebral disc spaces are relatively well preserved. No evidence of acute fracture. No prevertebral soft tissue swelling. Visualized portions of the lung apices are grossly unremarkable. Bilateral palatine tonsilliths noted. The thyroid gland is grossly unremarkable. CT/CT cervical spine wo con IMPRESSION: No acute findings identified in the head or cervical spine.
--- NOTE | ~2021-11-12 | CT_ITS ---
EXAMINATION: CONTRAST-ENHANCED CT OF THE CHEST; CONTRAST-ENHANCED CT OF THE ABDOMEN AND PELVIS INDICATION: Pain after fall COMPARISON: 05/11/2019 TECHNIQUE: 100 mL Omnipaque 350 IV contrast was utilized. Multidetector helical imaging was performed through the chest, abdomen, and pelvis. Coronal and sagittal reformatted images were created at the technologist workstation. DLP: 2507 mGy-cm DOSE LOWERING TECHNIQUES: This CT examination was performed using dose optimization techniques as appropriate, variously including the following: - Automated exposure control - Adjustment of mA and/or kV according to patient size (this includes techniques or standardized protocols for targeted exams were dose is matched to indication/reason for exam; i.e. extremities or head) - Use of iterative reconstruction technique FINDINGS: Chest: Detailed evaluation of the lung parenchyma is limited due to respiratory motion artifact. No regions of consolidation are seen. Mild subsegmental atelectasis noted towards the lung bases. Heterogeneous left thyroid lobe nodule is present. There are subcentimeter mediastinal lymph nodes within the range of normal variation. Cardiac size is within normal limits; no pericardial effusion. Aorta appears unremarkable. No axillary lymphadenopathy is present. Abdomen/Pelvis: The liver is homogeneous in attenuation without intrahepatic biliary ductal dilatation. There is redemonstration of a few hypoattenuating lesions in the left hepatic lobe measuring up to 1.6 cm; these were also present previously and suggestive of cysts and possibly a hemangioma. The gallbladder appears somewhat contracted. The spleen, pancreas, and adrenal glands are within normal limits. Bilateral nephrograms are symmetric. No hydronephrosis. No obstructing renal or ureteral calculi are present. Subcentimeter, slightly hyperdense lesion off the upper left kidney appears unchanged in size since 05/11/2019, favoring a hyperdense cyst. The urinary bladder is unremarkable. Status post hysterectomy. There is colonic diverticulosis without diverticulitis. No evidence of bowel obstruction. The appendix is unremarkable. No free fluid or free air is identified. Mild scattered atherosclerotic calcifications. No retroperitoneal or pelvic lymphadenopathy is seen. Osseous structures: No acute fracture is seen. Scattered endplate osteophytes throughout the thoracolumbar spine. There is severe degenerative change at L3-L4 with disc space narrowing, vacuum disc phenomenon, and surrounding degenerative endplate changes. Degenerative disc disease is also present at L5-S1. Bilateral L5 pars defects are noted. CT/CT abdomen pelvis w con IMPRESSION: 1. No acute traumatic findings identified in the chest, abdomen, or pelvis. 2. Heterogeneous left thyroid lobe nodule. If not already performed, further workup with ultrasound is recommended.
--- NOTE | ~2021-11-12 | XR_ITS ---
EXAMINATION: PORTABLE CHEST 1 VIEW CLINICAL INFORMATION: SOB . COMPARISON: 07/09/2021. TECHNIQUE: Portable frontal view of the chest was obtained. FINDINGS: The lungs are well expanded. No focal infiltrate, effusion, edema, or pneumothorax. Cardiac and mediastinal silhouettes are within normal limits for technique. No acute bony abnormality seen. XR/XR chest 1V IMPRESSION: No evidence of acute disease compared to 07/09/2021.
--- NOTE | ~2021-11-12 | CT_ITS ---
EXAMINATION: NONCONTRAST HEAD CT NONCONTRAST CERVICAL SPINE CT INDICATION INFORMATION: Loss of consciousness, headache, neck pain COMPARISON: 09/05/2021 TECHNIQUE: Separate noncontrast CT examinations of the head and cervical spine were performed. Coronal head CT images and coronal and sagittal cervical spine images were created at the technologist workstation. DLP: 1443 mGy-cm DOSE LOWERING TECHNIQUES: This CT examination was performed using dose optimization techniques as appropriate, variously including the following: - Automated exposure control - Adjustment of mA and/or kV according to patient size (this includes techniques or standardized protocols for targeted exams were dose is matched to indication/reason for exam; i.e. extremities or head) - Use of iterative reconstruction technique FINDINGS: Head: There is no evidence of acute intracranial hemorrhage or territorial infarction. No abnormal mass-effect or midline shift is seen. Adams to white matter differentiation is well preserved. No extra-axial fluid collections are identified. The ventricles are normal in size. There is no abnormal attenuation within the brain parenchyma. The osseous structures and soft tissues are normal. The mastoid air cells and visualized portions of the paranasal sinuses are well-aerated. Cervical spine: There is anatomic alignment of the vertebral bodies and posterior elements. Vertebral body heights are maintained. Intervertebral disc spaces are relatively well preserved. No evidence of acute fracture. No prevertebral soft tissue swelling. Visualized portions of the lung apices are grossly unremarkable. Bilateral palatine tonsilliths noted. The thyroid gland is grossly unremarkable. CT/CT head/brain wo con IMPRESSION: No acute findings identified in the head or cervical spine.
[2021-11-12 20:49] VITALS: BP 119/80; PULSE 81; RESP 18; TEMP 36.9; O2SAT 96; BMI 38.4
[2021-11-12 21:06] LABS: MANUAL DIFF FLAG NO
[2021-11-12 21:08] LABS: Basophils Absolute Auto 0.1 X10*3/uL (0.0-0.2); Basophils Percent Auto 0.5 % (0-2); Eosinophils Absolute Auto 0.2 X10*3/uL (0.0-0.4); Eosinophils Percent Auto 1.6 % (0-4); Hematocrit 43.6 % (37.0-47.0); Imm Gran Abs Auto 0.03 X10*3/uL (0.00-0.03); Imm Gran Pct Auto 0.3 % (0.0-0.4); Lymphocytes Absolute Auto 1.7 X10*3/uL (1.2-4.9); Lymphocytes Percent Auto 17.7 % (20-40); Mean Corpuscular HGB Conc 32.1 g/dl (31.0-35.0); Mean Corpuscular Hemoglobin 28.3 pg (27.0-33.0); Mean Corpuscular Volume 88.3 fL (80.0-98.0); Mean Platelet Volume 10.5 fL (9.4-12.3); Monocytes Absolute Auto 0.6 X10*3/uL (0.1-1.2); Monocytes Percent Auto 5.8 % (2-11); Neutrophils Absolute Auto 7.2 x10*3/uL (2.0-8.3); Neutrophils Percent Auto 74.1 % (45-73); Platelet Count 257 X10*3/uL (160-400); Red Blood Count 4.94 X10*6/uL (4.20-5.50); Red Cell Distribution Width 13.8 % (11.0-16.0); White Blood Count 9.7 X10*3/uL (4.8-10.8)
[2021-11-12 21:21] LABS: COVID-19 Test Negative (Negative)
[2021-11-12 21:28] LABS: Anion Gap 12 (12-20); Blood Urea Nitrogen 9 mg/dL (9-16); Calcium 9.6 mg/dL (8.4-10.2); Carbon Dioxide 31 mmol/L (22-29); Chloride 103 mmol/L (96-108); Creatinine Clr Calc Pharmacy 102.1; Estimated Glomerular Filt Rate > 60; Glucose Random 116 mg/dL (60-115); Potassium 3.7 mmol/L (3.3-5.1); Sodium 142 mmol/L (135-145)
--- NOTE | 2021-11-12 23:45 | ED_ITS ---
HPI - General Adult General Chief complaint: General Medical <JEREMY Jerry - Last Filed: 11/13/21 02:31> Stated complaint: spinal pain, weakness post fall 11/08 <JEREMY Jerry Last Filed: 11/13/21 02:31> Time Seen by Provider: 11/12/21 23:45 <JEREMY Jerry Last Filed: 11/13/21 02:31> Source: patient <JEREMY Jerry Last Filed: 11/13/21 02:31> Mode of arrival: ambulatory <JEREMY Jerry Last Filed: 11/13/21 02:31> Limitations: no limitations <JEREMY Jerry Last Filed: 11/13/21 02:31> History of Present Illness HPI narrative: This is a 60-year-old female pmhx adrenal insufficiency, htn, copd, hyperthyroidism presenting to the emergency department with pain throughout her body status post fall on 11/08/2021. Patient tells me that she is having a severe headache, and neck pain. She also tells me that she is having severe chest pain, and abdominal pain. Patient tells me she was sitting in her house, which is currently getting work done when suddenly a large very heavy door fell and hit her in the head and neck. She tells me she fell off her stool backwards and hit her head her neck her back and her abdomen. Patient reports severe pain. Tells me her chest pain is substernal, episodic last a few seconds described as severe tight. She also tells me she has been more short of breath since than usual she also reports she has been weak. She reports a headache that is constant and bothersome she says that is accompanied by nausea and vomiting. She denies vision changes and dizziness. Patient is on daily aspirin. She denies fevers, chills, nausea, vomiting, vision changes, fevers, chills, dizziness. <JEREMY Jerry Last Filed: 11/13/21 02:31> Onset (ago): day(s) (4) <JEREMY Jerry Last Filed: 11/13/21 02:31> Location: head, left, right, upper extremity and lower extremity <JEREMY Jerry - Last Filed: 11/13/21 02:31> Radiation: non-radiation <JEREMY Jerry - Last Filed: 11/13/21 02:31> Severity: moderate <JEREMY Jerry Last Filed: 11/13/21 02:31> Quality: constant <JEREMY Jerry Last Filed: 11/13/21 02:31> Pain Consistency: constant <JEREMY Jerry - Last Filed: 11/13/21 02:31> Relieving factors: none <JEREMY Jerry Last Filed: 11/13/21 02:31> Exacerbating factors: none <JEREMY Jerry Last Filed: 11/13/21 02:31> Associated symptoms: denies other symptoms <JEREMY Jerry Last Filed: 11/13/21 02:31> Treatments prior to arrival: none <JEREMY Jerry Last Filed: 11/13/21 02:31> Related Data Home medications: Home Medications Medication Instructions Recorded Confirmed albuterol sulfate 90 mcg/actuation 2 puff INHALATION Q6H PRN 02/28/21 02/28/21 aerosol inhaler aspirin 81 mg tablet,delayed 81 mg PO DAILY 02/28/21 02/28/21 release budesonide-formoterol HFA 160 2 puff INHALATION BID 02/28/21 02/28/21 mcg-4.5 mcg/actuation aerosol inhaler (Symbicort) diclofenac sodium 1 % topical gel 2 g TOPICAL QID 02/28/21 02/28/21 furosemide 20 mg tablet (Lasix) 10 mg PO QAM 02/28/21 02/28/21 hydrochlorothiazide 12.5 mg tablet 12.5 mg PO DAILY 02/28/21 02/28/21 isosorbide mononitrate 30 mg 30 mg PO DAILY 02/28/21 02/28/21 tablet,extended release 24 hr levothyroxine 75 mcg capsule 75 mcg PO DAILY 02/28/21 02/28/21 lidocaine 5 % topical patch 3 patch TOPICAL DAILY 02/28/21 02/28/21 meclizine 25 mg tablet 25 mg PO DAILY 02/28/21 02/28/21 montelukast 10 mg tablet 10 mg PO DAILY 02/28/21 02/28/21 (Singulair) nitroglycerin 0.3 mg sublingual 0.3 mg SUBLINGUAL Q5M PRN 02/28/21 02/28/21 tablet oxycodone 15 mg tablet 15 mg PO Q6H PRN 02/28/21 02/28/21 phenytoin sodium extended 100 mg 100 mg PO BID 02/28/21 02/28/21 capsule (Dilantin Extended) pregabalin 300 mg capsule (Lyrica) 300 mg PO BID 02/28/21 02/28/21 simvastatin 20 mg tablet 20 mg PO DAILY 02/28/21 02/28/21 albuterol sulfate mg INHALATION TID 05/24/21 clonazepam 1 mg tablet 1 mg PO BID PRN 05/24/21 dicyclomine 10 mg capsule 10 mg PO QID 05/24/21 docusate sodium 100 mg capsule 100 mg PO BEDTIME PRN 05/24/21 folic acid 1 mg tablet 1 mg PO DAILY 05/24/21 hydrocortisone 10 mg tablet 0 mg PO 05/24/21 levothyroxine 100 mcg tablet 100 mcg PO DAILY 05/24/21 meloxicam 15 mg tablet 15 mg PO DAILY 05/24/21 nicotine 14 mg/24 hr daily 1 patch TOPICAL DAILY 05/24/21 transdermal patch omeprazole 20 mg capsule,delayed 40 mg PO DAILY 05/24/21 release theophylline 400 mg 400 mg PO DAILY 05/24/21 capsule,extended release 24 hr ([place]ari[place]-24) tiotropium bromide 18 mcg capsule 1 cap INHALATION DAILY 05/24/21 with inhalation device (Spiriva with HandiHaler) topiramate 25 mg tablet 25 mg PO 05/24/21 Previous Rx's Medication Instructions Recorded cyclobenzaprine 10 mg tablet 10 mg PO TID PRN #10 tab 06/22/20 lisinopril 10 mg tablet 10 mg PO DAILY #30 tab 07/24/20 prednisone 20 mg tablet 40 mg PO DAILY #10 tab 06/05/21 loperamide 2 mg tablet 2 mg PO Q4H PRN #14 tab 07/09/21 (Anti-Diarrheal (loperamide)) ondansetron HCl 4 mg tablet 4 mg PO Q6H PRN #14 tab 07/09/21 (Zofran) nitrofurantoin 100 mg PO Q12H 5 Days #10 cap 09/09/21 monohydrate/macrocrystals 100 mg capsule (Macrobid) <JEREMY Jerry Last Filed: 11/13/21 02:31> Allergies/adverse reactions: Allergies Allergy/AdvReac Type Severity Reaction Status Date / Time Penicillins [PENICILLINS] Allergy Severe HIVES Verified 11/12/21 20:49 amoxicillin [AMOXICILLIN] Allergy Intermediate HIVES Verified 11/12/21 20:49 ciprofloxacin [From CIPRO] Allergy Intermediate HIVES Verified 11/12/21 20:49 aspirin [ASA] Allergy Unknown ITCHING Verified 11/12/21 20:49 ibuprofen [From MOTRIN] Allergy Unknown GI UPSET Verified 11/12/21 20:49 latex [LATEX] Allergy Unknown RASH Verified 11/12/21 20:49 latex Allergy Unknown rash Verified 11/12/21 20:49 penicillin V Allergy Unknown rash Verified 11/12/21 20:49 Tylox Allergy Unknown rash Verified 11/12/21 20:49 acetaminophen [From TYLOX] AdvReac Severe NAUSEA & Verified 11/12/21 20:49 VOMITING <JEREMY Jerry Last Filed: 11/13/21 02:31> Review of Systems Review of Systems: Constitutional : No Weight loss, No Fever, No Chills, + Fatigue, + Malaise ENT/Mouth : No sore throat, No Rhinorrhea Eyes: No Eye Pain, No Swelling, No Redness Cardiovascular : No Chest Pain, No SOB, No Dyspnea on Exertion, No Orthopnea, No Edema, No Palpitations Respiratory : No Cough, No Sputum, No Wheezing Gastrointestinal : No Nausea, No Vomiting, No Diarrhea, No Constipation, No abdominal Pain, No Hematochezia, No Melena Genitourinary : No Dysuria, No Urinary Frequency, No Hematuria, Musculoskeletal : + joint pain, No Myalgias, No Joint Swelling Skin : No Skin Lesions, No rash Neuro : + Weakness, No Numbness, No Dizziness, + Headache Psych : No Anxiety/Panic, No Depression All other systems reviewed and are negative <JEREMY Jerry Last Filed: 11/13/21 02:31> Yes all other systems are reviewed and are negative <JEREMY Jerry - Last Filed: 11/13/21 02:31> [facility] Past Medical History Attestation statement: The following information was validated with the patient. <JEREMY Jerry - Last Filed: 11/13/21 02:31> Source: old records reviewed and nursing notes reviewed <JEREMY Jerry - Last Filed: 11/13/21 02:31> Medical History: Medical History Asthma COPD (chronic obstructive pulmonary disease) Fibromyalgia HTN (hypertension) Hyperthyroidism Migraines Seizure Sleep apnea Urinary retention <JEREMY Jerry - Last Filed: 11/13/21 02:31> Surgical History: Surgical History Hx of section Hx of hysterectomy Hx of tubal ligation <JEREMY Jerry - Last Filed: 11/13/21 02:31> Family History Family History: Family History Mother Diabetes HTN (hypertension) Heart failure Maternal Aunt Breast cancer Maternal Grandmother Breast cancer <JEREMY Jerry - Last Filed: 11/13/21 02:31> Social History Social History: Social History Alcohol intake: unknown Patient Tobacco Use Status: Current everyday Tobacco user Cigarettes Per Day: 10 Years Smoked: 30 Substance Use Type: Prescription Drugs Advance Directives: No <JEREMY Jerry - Last Filed: 11/13/21 02:31> Physical Exam ED Vital Signs: Vital Signs - 24 hr 11/12/21 20:49 11/13/21 00:14 11/13/21 00:54 Temperature 98.4 F Pulse Rate 81 85 75 Respiratory Rate 18 16 17 Blood Pressure 119/80 108/61 104/56 L Pulse Oximetry 96 99 11/13/21 02:00 11/13/21 03:22 Temperature Pulse Rate 75 78 Respiratory Rate 20 17 Blood Pressure 87/60 L 92/52 L Pulse Oximetry 100 94 BMI result Body Mass Index 38.4 Vital signs stable <JEREMY Jerry - Last Filed: 11/13/21 02:31> Vital Signs - 24 hr 11/12/21 20:49 11/13/21 00:14 11/13/21 00:54 Temperature 98.4 F Pulse Rate 81 85 75 Respiratory Rate 18 16 17 Blood Pressure 119/80 108/61 104/56 L Pulse Oximetry 96 99 11/13/21 02:00 11/13/21 03:22 Temperature Pulse Rate 75 78 Respiratory Rate 20 17 Blood Pressure 87/60 L 92/52 L Pulse Oximetry 100 94 BMI result Body Mass Index 38.4 <Che Dash MD - Last Filed: 11/13/21 05:07> Appearance: Alert.? Oriented X3.? No acute distress.? Head: Normocephalic, atraumatic, no step-offs or deformities Eyes: Pupils equal, round and reactive to light.? Neck: Normal inspection.? Neck supple.? No meningeal signs. CVS: Normal heart rate and rhythm.? Pulses normal.? Respiratory: No respiratory distress.?Breath sounds normal.? Abdomen: Soft and nontender.? Skin: Skin warm and dry.? Normal skin color.? Normal skin turgor.? Extremities: No lower extremity edema.? No calf ttp. Diffusely weak. She reports pain with moving all extremities however all extremities have full range of motion. Back: No midline tenderness, no C-spine tenderness, full range of motion, no CVA tenderness bilaterally Neuro: Oriented X 3.? No motor deficit.? No sensory deficit. CN 2-12 intact . Negative Brudzinski. Negative pronator drift. Normal [id number]. <JEREMY Jerry - Last Filed: 11/13/21 02:31> Course Reevaluation(s) Reevaluation #1: Labs appear to be at patient's baseline. No acute findings. Chest x-ray within normal limits no acute disease. COVID negative. <JEREMY Jerry - Last Filed: 11/13/21 02:31> Time: 23:51 <JEREMY Jerry - Last Filed: 11/13/21 02:31> Reevaluation #2: Patient's telling me she is weak. And she think she has an adrenal crisis. Her labs show otherwise. No hyponatremia, no hyperkalemia, no confusion no altered mental status, neuro nonfocal. Patient says she is weak however she was able to walk into the emergency department. Discussed this with who recommended 50 mg of hydrocortisone IVpush, maryley that this is adrenal crisis. Scans delayed due to patients pain. She is now screaming out stating she is in severe pain and has now developed a cough. <JEREMY Jerry - Last Filed: 11/13/21 02:31> Time: 01:50 <JEREMY Jerry - Last Filed: 11/13/21 02:31> Reevaluation #3: Had and Dr. Dash evaluate patient. Another 50 mg of hydrocortisone were given. Pressure now normal. <JEREMY Jerry - Last Filed: 11/13/21 02:31> Time: 02:20 <JEREMY Jerry - Last Filed: 11/13/21 02:31> Additional Reevaluation(s): 0230 Report given to . Pending CT scans <JEREMY Jerry - Last Filed: 11/13/21 02:31> 0230 Report given to . Pending CT scans 0505: On review of all investigations, patient is resting comfortably, there are no acute findings on the extensive workup that was conducted. All results and findings discussed with the patient at bedside and she understands that she is stable for discharge to home and has been instructed to follow-up with her primary care provider in the morning. <Che Dash MD - Last Filed: 11/13/21 05:07> Medical Decision Making MDM Narrative Medical decision making narrative: [id number] yo f pmhx adrenal insufficiency, htn, copd, hyperthyroidism presents w/ headache, neck pain, chest pain, shortness of breath, abdominal pain bilateral upper and lower extremity pain status post fall on 11/08/2021. Patient on baby aspirin. Patient tells me a large heavy door fell on her head. Physical examination benign. Lungs clear. RRR. Abdomen soft nontender non distended. Neuro nonfocal, diffuse weakness is appreciated. Intact cerebellar function. Unlikely ICH, unlikely ACS, unlikely acute abdomen. Likely muscle sprain/strains. Unlikely adrenal crisis. Planned labs, imaging. <JEREMY Jerry - Last Filed: 11/13/21 02:31> Medical Records Medical records reviewed: Yes I reviewed the patient's medical records. <JEREMY Jerry - Last Filed: 11/13/21 02:31> Lab Data Lab results reviewed: Yes I reviewed the patient's lab results. <JEREMY Jerry - Last Filed: 11/13/21 02:31> Result diagrams: : 11/12/21 20:57 11/12/21 20:57 <JEREMY Jerry - Last Filed: 11/13/21 02:31> Labs: Lab Results 11/12/21 11/12/21 11/12/21 Range/Units 20:57 20:57 20:57 WBC 9.7 (4.8-10.8) X10*3/uL RBC 4.94 (4.20-5.50) X10*6/uL Hgb 14.0 (12.0-16.0) g/dl Hct 43.6 (37.0-47.0) % MCV 88.3 (80.0-98.0) fL MCH 28.3 (27.0-33.0) pg MCHC 32.1 (31.0-35.0) g/dl RDW 13.8 (11.0-16.0) % Plt Count 257 (160-400) X10*3/uL MPV 10.5 (9.4-12.3) fL Immature Gran % (Auto) 0.3 (0.0-0.4) % Neut % (Auto) 74.1 H (45-73) % Lymph % (Auto) 17.7 L (20-40) % [place] % (Auto) 5.8 (2-11) % Eos % (Auto) 1.6 (0-4) % Baso % (Auto) 0.5 (0-2) % Lymph # (Auto) 1.7 (1.2-4.9) X10*3/uL [place] # (Auto) 0.6 (0.1-1.2) X10*3/uL Eos # (Auto) 0.2 (0.0-0.4) X10*3/uL Baso # (Auto) 0.1 (0.0-0.2) X10*3/uL Abs Immat Gran (auto) 0.03 (0.00-0.03) X10*3/uL Absolute Neuts (auto) 7.2 (2.0-8.3) x10*3/uL Absolute Nucleated RBC 0.000 (0.0-0.012) X10*3/uL Nucleated RBC % (auto) 0.0 (0.0-0.2) /100WBC Sodium 142 (135-145) mmol/L Potassium 3.7 (3.3-5.1) mmol/L Chloride 103 (96-108) mmol/L Carbon Dioxide 31 H (22-29) mmol/L Anion Gap 12 (12-20) BUN 9 (9-16) mg/dL Creatinine 0.71 (0.5-1.4) mg/dL Estim Creat Clear Calc 102.1 Estimated GFR > 60 Random Glucose 116 H (60-115) mg/dL Calcium 9.6 (8.4-10.2) mg/dL Troponin I High Sens < 3.5 (<3.5-17.0) ng/L C-Reactive Protein 1.34 H (< or = 0.50) mg/dL B-Natriuretic Peptide 15 (<100) pg/mL TSH 0.89 (0.32-4.0) uIU/mL Urine Color Urine Appearance Urine pH (5.0-8.0) Ur Specific [place] (1.005-1.025) Urine Protein (NEG-TRACE) MG/DL Urine Glucose (UA) (NEG) MG/DL Urine Ketones (NEG) MG/DL Urine Blood (NEG) Urine Nitrite (NEG) Ur Leukocyte Esterase (NEG) COVID-19 (DORON) (Negative) COVID-19 Clin Com 11/12/21 11/13/21 Range/Units 20:58 00:34 WBC (4.8-10.8) X10*3/uL RBC (4.20-5.50) X10*6/uL Hgb (12.0-16.0) g/dl Hct (37.0-47.0) % MCV (80.0-98.0) fL MCH (27.0-33.0) pg MCHC (31.0-35.0) g/dl RDW (11.0-16.0) % Plt Count (160-400) X10*3/uL MPV (9.4-12.3) fL Immature Gran % (Auto) (0.0-0.4) % Neut % (Auto) (45-73) % Lymph % (Auto) (20-40) % [place] % (Auto) (2-11) % Eos % (Auto) (0-4) % Baso % (Auto) (0-2) % Lymph # (Auto) (1.2-4.9) X10*3/uL [place] # (Auto) (0.1-1.2) X10*3/uL Eos # (Auto) (0.0-0.4) X10*3/uL Baso # (Auto) (0.0-0.2) X10*3/uL Abs Immat Gran (auto) (0.00-0.03) X10*3/uL Absolute Neuts (auto) (2.0-8.3) x10*3/uL Absolute Nucleated RBC (0.0-0.012) X10*3/uL Nucleated RBC % (auto) (0.0-0.2) /100WBC Sodium (135-145) mmol/L Potassium (3.3-5.1) mmol/L Chloride (96-108) mmol/L Carbon Dioxide (22-29) mmol/L Anion Gap (12-20) BUN (9-16) mg/dL Creatinine (0.5-1.4) mg/dL Estim Creat Clear Calc Estimated GFR Random Glucose (60-115) mg/dL Calcium (8.4-10.2) mg/dL Troponin I High Sens (<3.5-17.0) ng/L C-Reactive Protein (< or = 0.50) mg/dL B-Natriuretic Peptide (<100) pg/mL TSH (0.32-4.0) uIU/mL Urine Color YELLOW Urine Appearance CLEAR Urine pH 5.5 (5.0-8.0) Ur Specific [place] >= 1.030 H (1.005-1.025) Urine Protein NEG (NEG-TRACE) MG/DL Urine Glucose (UA) NEG (NEG) MG/DL Urine Ketones NEG (NEG) MG/DL Urine Blood NEG (NEG) Urine Nitrite NEG (NEG) Ur Leukocyte Esterase NEG (NEG) COVID-19 (DORON) Negative (Negative) COVID-19 Clin Com See Note <JEREMY Jerry - Last Filed: 11/13/21 02:31> Lab Results 11/12/21 11/12/21 11/12/21 Range/Units 20:57 20:57 20:57 WBC 9.7 (4.8-10.8) X10*3/uL RBC 4.94 (4.20-5.50) X10*6/uL Hgb 14.0 (12.0-16.0) g/dl Hct 43.6 (37.0-47.0) % MCV 88.3 (80.0-98.0) fL MCH 28.3 (27.0-33.0) pg MCHC 32.1 (31.0-35.0) g/dl RDW 13.8 (11.0-16.0) % Plt Count 257 (160-400) X10*3/uL MPV 10.5 (9.4-12.3) fL Immature Gran % (Auto) 0.3 (0.0-0.4) % Neut % (Auto) 74.1 H (45-73) % Lymph % (Auto) 17.7 L (20-40) % [place] % (Auto) 5.8 (2-11) % Eos % (Auto) 1.6 (0-4) % Baso % (Auto) 0.5 (0-2) % Lymph # (Auto) 1.7 (1.2-4.9) X10*3/uL [place] # (Auto) 0.6 (0.1-1.2) X10*3/uL Eos # (Auto) 0.2 (0.0-0.4) X10*3/uL Baso # (Auto) 0.1 (0.0-0.2) X10*3/uL Abs Immat Gran (auto) 0.03 (0.00-0.03) X10*3/uL Absolute Neuts (auto) 7.2 (2.0-8.3) x10*3/uL Absolute Nucleated RBC 0.000 (0.0-0.012) X10*3/uL Nucleated RBC % (auto) 0.0 (0.0-0.2) /100WBC Sodium 142 (135-145) mmol/L Potassium 3.7 (3.3-5.1) mmol/L Chloride 103 (96-108) mmol/L Carbon Dioxide 31 H (22-29) mmol/L Anion Gap 12 (12-20) BUN 9 (9-16) mg/dL Creatinine 0.71 (0.5-1.4) mg/dL Estim Creat Clear Calc 102.1 Estimated GFR > 60 Random Glucose 116 H (60-115) mg/dL Calcium 9.6 (8.4-10.2) mg/dL Troponin I High Sens < 3.5 (<3.5-17.0) ng/L C-Reactive Protein 1.34 H (< or = 0.50) mg/dL B-Natriuretic Peptide 15 (<100) pg/mL TSH 0.89 (0.32-4.0) uIU/mL Urine Color Urine Appearance Urine pH (5.0-8.0) Ur Specific [place] (1.005-1.025) Urine Protein (NEG-TRACE) MG/DL Urine Glucose (UA) (NEG) MG/DL Urine Ketones (NEG) MG/DL Urine Blood (NEG) Urine Nitrite (NEG) Ur Leukocyte Esterase (NEG) COVID-19 (DORON) (Negative) COVID-19 Clin Com 11/12/21 11/13/21 Range/Units 20:58 00:34 WBC (4.8-10.8) X10*3/uL RBC (4.20-5.50) X10*6/uL Hgb (12.0-16.0) g/dl Hct (37.0-47.0) % MCV (80.0-98.0) fL MCH (27.0-33.0) pg MCHC (31.0-35.0) g/dl RDW (11.0-16.0) % Plt Count (160-400) X10*3/uL MPV (9.4-12.3) fL Immature Gran % (Auto) (0.0-0.4) % Neut % (Auto) (45-73) % Lymph % (Auto) (20-40) % [place] % (Auto) (2-11) % Eos % (Auto) (0-4) % Baso % (Auto) (0-2) % Lymph # (Auto) (1.2-4.9) X10*3/uL [place] # (Auto) (0.1-1.2) X10*3/uL Eos # (Auto) (0.0-0.4) X10*3/uL Baso # (Auto) (0.0-0.2) X10*3/uL Abs Immat Gran (auto) (0.00-0.03) X10*3/uL Absolute Neuts (auto) (2.0-8.3) x10*3/uL Absolute Nucleated RBC (0.0-0.012) X10*3/uL Nucleated RBC % (auto) (0.0-0.2) /100WBC Sodium (135-145) mmol/L Potassium (3.3-5.1) mmol/L Chloride (96-108) mmol/L Carbon Dioxide (22-29) mmol/L Anion Gap (12-20) BUN (9-16) mg/dL Creatinine (0.5-1.4) mg/dL Estim Creat Clear Calc Estimated GFR Random Glucose (60-115) mg/dL Calcium (8.4-10.2) mg/dL Troponin I High Sens (<3.5-17.0) ng/L C-Reactive Protein (< or = 0.50) mg/dL B-Natriuretic Peptide (<100) pg/mL TSH (0.32-4.0) uIU/mL Urine Color YELLOW Urine Appearance CLEAR Urine pH 5.5 (5.0-8.0) Ur Specific [place] >= 1.030 H (1.005-1.025) Urine Protein NEG (NEG-TRACE) MG/DL Urine Glucose (UA) NEG (NEG) MG/DL Urine Ketones NEG (NEG) MG/DL Urine Blood NEG (NEG) Urine Nitrite NEG (NEG) Ur Leukocyte Esterase NEG (NEG) COVID-19 (DORON) Negative (Negative) COVID-19 Clin Com See Note <Che Dash MD - Last Filed: 11/13/21 05:07> Critical Care Time Critical Care Time Critical Care Time: No <JEREMY Jerry - Last Filed: 11/13/21 02:31> Discharge Plan Discharge Clinical Impression: Fall, Neck pain, Headache, Hypotension, Weakness, Chest pain, Abdominal pain <JEREMY Jerry - Last Filed: 11/13/21 02:31> Patient Disposition: Home, Self-Care <JEREMY Jerry - Last Filed: 11/13/21 02:31> Instructions: Weakness (ED), General Headache (ED) <JEREMY Jerry - Last Filed: 11/13/21 02:31> Additional Instructions: 1. Resume all home medications as prescribed. 2. Follow-up with your primary care provider today for re-evaluation and further outpatient investigations as indicated. Return to the ER for any worsening symptoms. <JEREMY Jerry - Last Filed: 11/13/21 02:31> Prescriptions: No Action cyclobenzaprine 10 mg tablet 10 mg PO TID PRN (Reason: pain) Qty: 10 0RF lisinopril 10 mg tablet 10 mg PO DAILY Qty: 30 0RF prednisone 20 mg tablet 40 mg PO DAILY Qty: 10 0RF ondansetron HCl [Zofran] 4 mg tablet 4 mg PO Q6H PRN (Reason: nausea and vomiting) Qty: 14 0RF loperamide [Anti-Diarrheal (loperamide)] 2 mg tablet 2 mg PO Q4H PRN (Reason: loose stool) Qty: 14 0RF Rx Instructions: administer after each loose stool until symptoms controlled; do not exceed 8 mg per 24 hrs nitrofurantoin monohyd/m-cryst [Macrobid] 100 mg capsule 100 mg PO Q12H 5 Days Qty: 10 0RF Rx Instructions: must administer with a meal/food [place]-24 400 mg capsule,extended release 24hr 400 mg PO DAILY 0RF meloxicam 15 mg tablet 15 mg PO DAILY 0RF Spiriva with HandiHaler 18 mcg capsule, w/inhalation device 1 cap inhalation DAILY 0RF dicyclomine 10 mg capsule 10 mg PO QID 0RF hydrocortisone 10 mg tablet 0 mg PO 0RF folic acid 1 mg tablet 1 mg PO DAILY 0RF omeprazole 20 mg capsule,delayed release(DR/EC) 40 mg PO DAILY 0RF docusate sodium 100 mg capsule 100 mg PO BEDTIME PRN0RF levothyroxine 100 mcg tablet 100 mcg PO DAILY 0RF topiramate 25 mg tablet 25 mg PO 0RF clonazepam 1 mg tablet 1 mg PO BID PRN (Reason: panic attack) 0RF albuterol sulfate 2.5 mg /3 mL (0.083 %) solution for nebulization inhalation TID 0RF nicotine 14 mg/24 hr patch 24 hour 1 patch topical DAILY 0RF oxycodone 15 mg tablet 15 mg PO Q6H PRN0RF albuterol sulfate 90 mcg/actuation HFA aerosol inhaler 2 puff inhalation Q6H PRN0RF budesonide-formoterol [Symbicort] 160-4.5 mcg/actuation HFA aerosol inhaler 2 puff inhalation BID 0RF nitroglycerin 0.3 mg tablet, sublingual 0.3 mg sublingual Q5M PRN0RF Rx Instructions: do not exceed 3 doses per episode levothyroxine 75 mcg capsule 75 mcg PO DAILY 0RF montelukast [Singulair] 10 mg tablet 10 mg PO DAILY 0RF pregabalin [Lyrica] 300 mg capsule 300 mg PO BID 0RF phenytoin sodium extended [Dilantin Extended] 100 mg capsule 100 mg PO BID 0RF isosorbide mononitrate 30 mg tablet extended release 24 hr 30 mg PO DAILY 0RF Rx Instructions: 2 tabs daily hydrochlorothiazide 12.5 mg tablet 12.5 mg PO DAILY 0RF furosemide [Lasix] 20 mg tablet 10 mg PO QAM 0RF diclofenac sodium 1 % gel 2 g topical QID 0RF Rx Instructions: apply to single elbow, wrist or hand; for hand includes palm/fingers/back of hand lidocaine 5 % adhesive patch,medicated 3 patch topical DAILY 0RF Rx Instructions: leave on most painful area for up to 12 hrs simvastatin 20 mg tablet 20 mg PO DAILY 0RF aspirin 81 mg tablet,delayed release (DR/EC) 81 mg PO DAILY 0RF meclizine 25 mg tablet 25 mg PO DAILY 0RF <JEREMY Jerry - Last Filed: 11/13/21 02:31> Referrals: Name,MD Tone [Primary Care Provider] - 2 days <JEREMY Jerry - Last Filed: 11/13/21 02:31>
[2021-11-13 00:14] VITALS: BP 108/61; PULSE 85; RESP 16; O2SAT 99
[2021-11-13 00:44] LABS: Appearance Urine CLEAR; Color Urine YELLOW; Glucose Urine UA NEG (NEG); Leukocyte Esterase Urine NEG (NEG); Nitrite Urine NEG (NEG); PH 5.5 (5.0-8.0); Specific Gravity - Urine >= 1.030 (1.005-1.025); Urine Blood NEG (NEG); Urine Ketones NEG (NEG); Urine Protein NEG (NEG-TRACE)
[2021-11-13 00:47] LABS: B Type Natriuretic Peptide 15 pg/mL (<100); Troponin-I High Sensitivity < 3.5 ng/L (<3.5-17.0)
[2021-11-13 00:54] VITALS: BP 104/56; PULSE 75; RESP 17
--- NOTE | 2021-11-13 01:00 | PC.NURSE ---
CARE TRANSFERRED TO ROXANNE JALLOH. REPORT GIVEN.
[2021-11-13] MEDS: 0.9 % Sodium Chloride 1,000 ML 999 ML IV ×3 (01:07→04:41)
[2021-11-13 02:00] VITALS: BP 87/60; PULSE 75; RESP 20; O2SAT 100
[2021-11-13] MEDS: Hydrocortisone Sod Succ/PF 100 MG VIAL 50 MG IVPUSH ×2 (02:01→03:33)
--- NOTE | 2021-11-13 02:17 | PC.NURSE ---
pt hypotensive as charted, jay jurado aware and this RN to hold morphine per jay.
[2021-11-13] MEDS: iohexoL 350 MG/ML 100 ML INFUS..BTL IV (02:56)
[2021-11-13 03:22] VITALS: BP 92/52; PULSE 78; RESP 17; O2SAT 94
[2021-11-13 04:02] LABS: C Reactive Protein 1.34 mg/dL (< or = 0.50)
[2021-11-13 04:26] LABS: Thyroid Stimulating Hormone 0.89 uIU/mL (0.32-4.0)
== END 2021-11-13 05:49 | disposition home or self-care (01) ==
PROVIDERS: Internal Medicine; Physician Assistant; Emergency Provider Student in an Organized Health Care Education/Training Program; PCP Internal Medicine Geriatric Medicine
DX: R51.9 Headache, unspecified (principal); M54.2 Cervicalgia; I95.9 Hypotension, unspecified; R10.9 Unspecified abdominal pain; Z91.81 History of falling; Z20.822 Contact with and (suspected) exposure to COVID-19; R06.02 Shortness of breath; F17.200 Nicotine dependence, unspecified, uncomplicated; Z79.82 Long term (current) use of aspirin
CPT/HCPCS: 36415; 70450; 71045; 71260; 72125; 74177; 80048; 81003; 83880; 84443; 84484; 85025; 86140; 87635; 96361; 96374; 96375; 96376; 99284; Q9967

== ENCOUNTER → 2021-12-28 11:22 | Outpatient (BNVA) | payer MEDICAID, SELFPAY | PROVIDERS: PCP Internal Medicine Geriatric Medicine | DX: R33.9 Retention of urine, unspecified (principal); N32.81 Overactive bladder | CPT/HCPCS: 51798; 99212 ==

== ENCOUNTER → 2022-02-01 13:55 | Outpatient (BNVA) | payer MEDICAID, SELFPAY | PROVIDERS: PCP Internal Medicine Geriatric Medicine | DX: Z13.89 Encounter for screening for other disorder (principal) ==

== ENCOUNTER 2022-06-04 13:44 | Emergency (ER) | payer MEDICAID, SELFPAY ==
[2022-06-04 14:19] VITALS: BP 135/80; PULSE 81; RESP 18; TEMP 36.6; O2SAT 96; BMI 41.3
--- NOTE | 2022-06-04 14:22 | ECG_ITS ---
Test Reason : CHEST PAIN Blood Pressure : / mmHG Vent. Rate : 085 BPM Atrial Rate : 085 BPM P-R Int : 128 ms QRS Dur : 092 ms QT Int : 394 ms P-R-T Axes : 001 017 088 degrees QTc Int : 468 ms Sinus rhythm with Premature atrial complexes Nonspecific ST and T wave abnormality Abnormal ECG When compared with ECG of 05-SEP-2021 11:47, Premature atrial complexes are now Present Nonspecific ST and T wave abnormality is now Present Referred By: Generic ED Physician Electronically Signed By:BINA DINERO
[2022-06-04 14:38] LABS: Basophils Absolute Auto 0.1 X10*3/uL (0.0-0.2); Basophils Percent Auto 1.2 % (0-2); Eosinophils Absolute Auto 0.2 X10*3/uL (0.0-0.4); Hemoglobin 14.5 g/dl (12.0-16.0); Imm Gran Abs Auto 0.02 X10*3/uL (0.00-0.03); Imm Gran Pct Auto 0.3 % (0.0-0.4); Lymphocytes Percent Auto 32.9 % (20-40); MANUAL DIFF FLAG NO; Mean Corpuscular Hemoglobin 29.1 pg (27.0-33.0); Mean Corpuscular Volume 88.2 fL (80.0-98.0); Mean Platelet Volume 10.1 fL (9.4-12.3); Monocytes Absolute Auto 0.3 X10*3/uL (0.1-1.2); Monocytes Percent Auto 4.2 % (2-11); Neutrophils Absolute Auto 3.5 x10*3/uL (2.0-8.3); Neutrophils Percent Auto 58.4 % (45-73); Platelet Count 293 X10*3/uL (160-400); Red Blood Count 4.99 X10*6/uL (4.20-5.50); Red Cell Distribution Width 12.8 % (11.0-16.0)
[2022-06-04 14:51] LABS: Anion Gap 19 (12-20); Blood Urea Nitrogen 8 mg/dL (9-16); Calcium 9.7 mg/dL (8.4-10.2); Carbon Dioxide 21 mmol/L (22-29); Chloride 106 mmol/L (96-108); Creatinine Clr Calc Pharmacy 103.5; Estimated Glomerular Filt Rate > 60; Glucose Random 182 mg/dL (60-115); Potassium 3.5 mmol/L (3.3-5.1); Sodium 142 mmol/L (135-145)
== END 2022-06-04 22:42 | disposition left against medical advice (07) ==
PROVIDERS: Emergency Provider Emergency Medicine; PCP Internal Medicine Geriatric Medicine
DX: R06.02 Shortness of breath (principal); R07.89 Other chest pain; Z79.899 Other long term (current) drug therapy
CPT/HCPCS: 36415; 80048; 85025; 93005; 99283

== ENCOUNTER 2022-09-24 11:19 | Emergency (ER) | payer MEDICAID, SELFPAY ==
--- NOTE | ~2022-09-24 | CT_ITS ---
EXAMINATION: CT chest wo IV con. CLINICAL INFORMATION: Reason for Exam Fall on right chest. Fractures? COMPARISON: Most recent prior chest CT from 11/13/2021. TECHNIQUE: Multidetector volumetric CT imaging of the chest was done. Axial MIP volume rendering provided. Sagittal and coronal reformatted images were obtained. This CT examination was performed using dose optimization techniques as appropriate, variously including the following: *Automated exposure control *Adjustment of mA and/or kV according to patient size (this includes techniques or standardized protocols for targeted exams where dose is matched to indication/reason for exam; i.e. extremities or head) *Use of iterative reconstruction technique CONTRAST: A noncontrasted study. DLP: 369 mGy-cm FINDINGS: MOTORS AND GENERATORS INSPECTOR: LINES/TUBES: Vocational Evaluator reviewed, no lines. LUNGS: Lung parenchyma: Mild ayala lobar pulmonary emphysema. Linear densities likely platelike atelectasis lingula base and right lower lobe. Lung nodules/masses: No lung mass or suspicious spiculated nodules, there are few scattered tiny nonspecific lung nodular densities measuring up to 3 mm or less. AIRWAYS: Trachea and bronchi are normal. PLEURA: No pleural effusion or pneumothorax. MEDIASTINUM AND CINDY: No mediastinal, hilar or axillary lymphadenopathy. No mediastinal mass. VESSELS: HEART AND PERICARDIUM: Thoracic aorta is normal in size. Heart is normal in size. No pericardial effusion. No significant coronary calcifications. Pulmonary arteries are normal in size. LOWER NECK, AXILLA: The visualized thyroid gland is unremarkable. No axillary mass or adenopathy. VISUALIZED ABDOMEN: Redemonstration of small liver cyst left lobe 1.7 cm otherwise unremarkable. CHEST WALL AND BONES: No chest wall mass. Mildly displaced fractures of the anterior lateral aspect of the right eighth and ninth ribs. CT/CT chest wo IV con IMPRESSION: * Mildly displaced fractures of the anterior lateral aspect of the right eighth and ninth ribs. * No pneumothorax. * Mild pulmonary emphysema. * Linear densities likely platelike atelectasis lingula base and right lower lobe. * Redemonstration of few scattered tiny nonspecific lung nodular densities measuring up to 3 mm or less. No suspicious mass or suspicious nodules. Various management parameters for solitary pulmonary nodules are in the literature. According to the UPDATED 2017 Fleischner Society recommendations, the advised follow-up imaging for solid nodules < 6 mm is: LOW RISK PATIENT: No routine follow-up. HIGH RISK PATIENT: Optional CT at 12 months. Reference: Guidelines for Management of Incidental Pulmonary Nodules Detected on CT Images: From the Fleischner Society 2017.
[2022-09-24 12:12] VITALS: BP 155/100; PULSE 77; RESP 18; TEMP 35.9; O2SAT 96; BMI 38.4
--- NOTE | 2022-09-24 12:16 | ECG_ITS ---
Test Reason : sob,cp Blood Pressure : / mmHG Vent. Rate : 078 BPM Atrial Rate : 000 BPM P-R Int : 000 ms QRS Dur : 082 ms QT Int : 416 ms P-R-T Axes : 000 -02 065 degrees QTc Int : 474 ms Accelerated Junctional rhythm Abnormal ECG When compared with ECG of 04-JUN-2022 14:23, Junctional rhythm has replaced Sinus rhythm Referred By: Richard Hunter Electronically Signed By:VANIA KAPLAN MD
--- NOTE | 2022-09-24 12:20 | ED.GENADULT ---
HPI - General Adult General Chief complaint: General Medical <JEREMY Hurtado - Last Filed: 10/07/22 09:37> Stated complaint: Fall/R rib pain/SOB <JEREMY Hrutado - Last Filed: 10/07/22 09:37> Time Seen by Provider: 09/24/22 21:11 <JEREMY Hurtado - Last Filed: 10/07/22 09:37> Source: patient <Jessy Rivera CNP - Last Filed: 09/25/22 00:28> Mode of arrival: ambulatory <Jessy Rivera CNP - Last Filed: 09/25/22 00:28> Limitations: no limitations <Jessy Rivera CNP - Last Filed: 09/25/22 00:28> History of Present Illness HPI narrative: Patient is a 61-year-old female presents emergency department for right sided chest pain intermittent shortness of breath for 1 week. Reports onset of pain after a fall onto the chest. She states that she dropped a box onto her foot and lost her balance. Denies any head strike or loss of consciousness. Denies fevers, chills, upper respiratory symptoms, anterior chest pain, abdominal pain, nausea, vomiting, upper lower extremity pain. <Jessy Rivera CNP - Last Filed: 09/25/22 00:28> Related Data Home medications: Home Medications Medication Instructions Recorded Confirmed albuterol sulfate 90 mcg/actuation 2 puff inhalation Q6H PRN 02/28/21 02/28/21 aerosol inhaler aspirin 81 mg tablet,delayed 81 mg PO DAILY 02/28/21 02/28/21 release budesonide-formoterol HFA 160 2 puff inhalation BID 02/28/21 02/28/21 mcg-4.5 mcg/actuation aerosol inhaler (Symbicort) diclofenac sodium 1 % topical gel 2 g topical QID 02/28/21 02/28/21 furosemide 20 mg tablet (Lasix) 10 mg PO QAM 02/28/21 02/28/21 hydrochlorothiazide 12.5 mg tablet 12.5 mg PO DAILY 02/28/21 02/28/21 isosorbide mononitrate 30 mg 30 mg PO DAILY 02/28/21 02/28/21 tablet,extended release 24 hr levothyroxine 75 mcg capsule 75 mcg PO DAILY 02/28/21 02/28/21 lidocaine 5 % topical patch 3 patch topical DAILY 02/28/21 02/28/21 meclizine 25 mg tablet 25 mg PO DAILY 02/28/21 02/28/21 montelukast 10 mg tablet 10 mg PO DAILY 02/28/21 02/28/21 (Singulair) nitroglycerin 0.3 mg sublingual 0.3 mg sublingual Q5M PRN 02/28/21 02/28/21 tablet oxycodone 15 mg tablet 15 mg PO Q6H PRN 02/28/21 02/28/21 phenytoin sodium extended 100 mg 100 mg PO BID 02/28/21 02/28/21 capsule (Dilantin Extended) pregabalin 300 mg capsule (Lyrica) 300 mg PO BID 02/28/21 02/28/21 simvastatin 20 mg tablet 20 mg PO DAILY 02/28/21 02/28/21 albuterol sulfate 2.5 mg/3 mL mg inhalation TID 05/24/21 (0.083 %) solution for nebulization clonazepam 1 mg tablet 1 mg PO BID PRN panic attack 05/24/21 dicyclomine 10 mg capsule 10 mg PO QID 05/24/21 docusate sodium 100 mg capsule 100 mg PO BEDTIME PRN 05/24/21 folic acid 1 mg tablet 1 mg PO DAILY 05/24/21 hydrocortisone 10 mg tablet 0 mg PO 05/24/21 levothyroxine 100 mcg tablet 100 mcg PO DAILY 05/24/21 meloxicam 15 mg tablet 15 mg PO DAILY 05/24/21 nicotine 14 mg/24 hr daily 1 patch topical DAILY 05/24/21 transdermal patch omeprazole 20 mg capsule,delayed 40 mg PO DAILY 05/24/21 release theophylline 400 mg 400 mg PO DAILY 05/24/21 capsule,extended release 24 hr ([place]arien-24) tiotropium bromide 18 mcg capsule 1 cap inhalation DAILY 05/24/21 with inhalation device (Spiriva with HandiHaler) topiramate 25 mg tablet 25 mg PO 05/24/21 Previous Rx's Medication Instructions Recorded cyclobenzaprine 10 mg tablet 10 mg PO TID PRN pain #10 tabs 06/22/20 lisinopril 10 mg tablet 10 mg PO DAILY #30 tabs 07/24/20 prednisone 20 mg tablet 40 mg PO DAILY #10 tabs 06/05/21 loperamide 2 mg tablet 2 mg PO Q4H PRN loose stool #14 07/09/21 (Anti-Diarrheal (loperamide)) tabs ondansetron HCl 4 mg tablet 4 mg PO Q6H PRN nausea and 07/09/21 (Zofran) vomiting #14 tabs phenazopyridine 100 mg tablet 100 mg PO TID PRN pain 6 doses #10 03/12/22 (Pyridium) tabs vibegron 75 mg tablet (Gemtesa) 75 mg PO DAILY 1 month #30 tabs 04/23/22 nitrofurantoin 100 mg PO BID 10 days #20 caps 08/19/22 monohydrate/macrocrystals 100 mg capsule (Macrobid) <JEREMY Hurtado - Last Filed: 10/07/22 09:37> Allergies/adverse reactions: Allergies Allergy/AdvReac Type Severity Reaction Status Date / Time Penicillins [PENICILLINS] Allergy Severe HIVES Verified 04/23/22 08:39 amoxicillin [AMOXICILLIN] Allergy Intermediate HIVES Verified 04/23/22 08:39 ciprofloxacin [From CIPRO] Allergy Intermediate HIVES Verified 04/23/22 08:39 aspirin [ASA] Allergy Unknown ITCHING Verified 04/23/22 08:39 ibuprofen [From MOTRIN] Allergy Unknown GI UPSET Verified 04/23/22 08:39 latex [LATEX] Allergy Unknown RASH Verified 04/23/22 08:39 latex Allergy Unknown rash Verified 04/23/22 08:39 penicillin V Allergy Unknown rash Verified 04/23/22 08:39 Tylox Allergy Unknown rash Verified 04/23/22 08:39 acetaminophen [From TYLOX] AdvReac Severe NAUSEA & Verified 04/23/22 08:39 VOMITING <JEREMY Hurtado - Last Filed: 10/07/22 09:37> Review of Systems Review of Systems: Constitutional : No Weight loss, No Fever, No Chills ENT/Mouth :? No sore throat, No Rhinorrhea Eyes: No Eye Pain, No Swelling Cardiovascular : pos Chest wall pain Pain, pos SOB, no Dyspnea on Exertion, No Orthopnea, No Edema, No Palpitations Respiratory : No Cough, No Sputum Gastrointestinal : No Nausea, No Vomiting, No Diarrhea, No abdominal Pain, No Hematochezia, No Melena Genitourinary : No Dysuria, No Urinary Frequency Musculoskeletal : No joint pain, No Myalgias, No Joint Swelling Skin : No Skin Lesions, No rash Neuro : No Weakness, No Numbness, No Dizziness, No Headache Psych : No Anxiety/Panic, No Depression Heme/Lymph: No Bruising, No Lymphadenopathy Endocrine : No Polyuria, No Polydipsia <Jessy Rivera CNP - Last Filed: 09/25/22 00:28> Yes all other systems are reviewed and are negative <Jessy Rivera CNP - Last Filed: 09/25/22 00:28> FORMERLY [facility], 1928–1983 Past Medical History Attestation statement: The following information was validated with the patient. <Jessy Rivera CNP - Last Filed: 09/25/22 00:28> Source: old records reviewed <Jessy Rivera CNP - Last Filed: 09/25/22 00:28> Medical History: Medical History Asthma COPD (chronic obstructive pulmonary disease) Fibromyalgia HTN (hypertension) Hyperthyroidism Migraines Overactive bladder Seizure Sleep apnea Urinary retention <JEREMY Hurtado - Last Filed: 10/07/22 09:37> Surgical History: Surgical History Hx of section Hx of hysterectomy Hx of tubal ligation <JEREMY Hurtado - Last Filed: 10/07/22 09:37> Family History Family History: Family History Mother Diabetes HTN (hypertension) Heart failure Maternal Aunt Breast cancer Maternal Grandmother Breast cancer <JEREMY Hurtado - Last Filed: 10/07/22 09:37> Social History Social History: Social History Alcohol intake: never Patient Tobacco Use Status: Current everyday Tobacco user Cigarettes Per Day: 10 Years Smoked: 30 Smoked in Last 30 Days: No Use of substances other than those prescribed or required for medical reasons: No Substance Use Type: Prescription Drugs Advance Directives: No Advance Directives Information Provided: Yes <JEREMY Hurtado - Last Filed: 10/07/22 09:37> Physical Exam ED Vital Signs: Vital Signs - 24 hr 09/24/22 12:12 09/24/22 21:31 09/24/22 22:42 Temperature 96.7 F L 98.2 F Pulse Rate 77 72 Respiratory Rate 18 18 18 Blood Pressure 155/100 H 137/70 Pulse Oximetry 96 96 Oxygen Delivery Method Room Air Room Air BMI result Body Mass Index 38.4 <JEREMY Hurtado - Last Filed: 10/07/22 09:37> Vital Signs - 24 hr 09/24/22 12:12 09/24/22 21:31 09/24/22 22:42 Temperature 96.7 F L 98.2 F Pulse Rate 77 72 Respiratory Rate 18 18 18 Blood Pressure 155/100 H 137/70 Pulse Oximetry 96 96 Oxygen Delivery Method Room Air Room Air BMI result Body Mass Index 38.4 <Jessy Rivera CNP - Last Filed: 09/25/22 00:28> Appearance: Alert.?Oriented to person, place and time. No acute distress.?Normal affect. Eyes: Pupils equal, round and reactive to light.? ENT: Pharynx normal.?? Neck: Normal inspection.? Neck supple.?? CVS: Heart sounds normal. Normal heart rate and rhythm.? Pulses normal.?? Respiratory: No respiratory distress.? Lung sounds diminished bilaterally, poor inspiratory effort secondary to pain. Right lateral chest wall tenderness upon palpation. Abdomen: Soft and non-tender. Skin: Skin warm and dry.? Normal skin color.?? Extremities: No lower extremity edema.? Neuro: Moves all extremities spontaneously. Sensation intact bilaterally.. No focal neuro deficits. Ambulates with normal steady gait. <Jessy Rivera CNP - Last Filed: 09/25/22 00:28> Course Course Course Narrative: RME: 61 yold female presents to the ED for right pain and SOB for one week after fall unto chest last week. patient denies hitting head or loss of conscisouness. Patient states also fatigue for one week. CHest CT ordered to evaluate for fracture. labs and EKG ordered due to mutliple risk factors. positive for Right lower rib tenderness on palpation <JEREMY Hurtado - Last Filed: 10/07/22 09:37> Reevaluation(s) Reevaluation #1: CBC reveals no leukocytosis, no anemia, is unremarkable. CMP is overall unremarkable. Troponin <3.5, initial EKG revealing potential junctional rhythm, ventricular rate of 78, non disorder novel P-waves, no ST elevation or ST depression, I suspect this is likely a sinus rhythm, will obtain repeat EKG. BNP within normal limits. Chest CT reveals mildly displaced fracture of the right 8th and 9th rib, no pneumothorax, mild pulmonary emphysema, and platelike atelectasis of the lingula base and right lower lobe. Patient reporting 10/10 pain. César bandage used and applied around the chest wall as a rib binder. Patient tolerated this procedure well. Had no improvement in pain after application, and reporting worsening of shortness of breath, therefore removed. Patient to receive morphine 4 mg IM for pain. <Jessy Rivera CNP - Last Filed: 09/25/22 00:28> Time: 22:04 <Jessy Rivera CNP - Last Filed: 09/25/22 00:28> Reevaluation #2: Repeat EKG revealing sinus rhythm, ventricular rate 68, QTC 444, no ST elevation, ST depression, or T-wave inversion. Pain has improved after receiving morphine IM. Patient states she would like to be discharged home. Patient currently prescribed oxycodone 15 mg for chronic pain. At this time will not provide additional opiate type pain medications. Advised use of NSAID, patient reports history of stomach upset from ibuprofen, advised that she can take this with Prilosec to prevent stomach upset however she declines. Discussed expected course of pain associated with rib fractures which may last up to 6 weeks. She verbalizes understanding of this. She states that she will purchase a rib binder that she feels would be better suited to her body habitus as opposed to the César bandages. Reviewed use of incentive spirometer. We discussed worrisome signs and symptoms that would warrant re-evaluation in the emergency department, and she verbalizes understanding of this. At this time patient is stable for discharge home. <Jessy Rivera CNP - Last Filed: 09/25/22 00:28> Time: 23:39 <Jessy Rivera CNP - Last Filed: 09/25/22 00:28> Medications Administered Discontinued Medications Generic Name Dose Route Start Last Admin Trade Name Freq PRN Reason Stop Dose Admin Morphine Sulfate 4 mg 09/24/22 22:17 09/24/22 22:42 Morphine Sulfate 4 Mg/Ml Cartridge IM 09/24/22 22:18 4 mg ONCE ONE Administration Protocol <JEREMY Hurtado - Last Filed: 10/07/22 09:37> Medications Administered Discontinued Medications Generic Name Dose Route Start Last Admin Trade Name Freq PRN Reason Stop Dose Admin Morphine Sulfate 4 mg 09/24/22 22:17 09/24/22 22:42 Morphine Sulfate 4 Mg/Ml Cartridge IM 09/24/22 22:18 4 mg ONCE ONE Administration Protocol <Jessy Rivera CNP - Last Filed: 09/25/22 00:28> Medical Decision Making Medical Decision Making [facility] Narrative: Patient is a 61-year-old female with a past medical history of asthma, COPD, fibromyalgia, hypertension, hyperthyroidism, migraines, seizure, obstructive sleep apnea presenting to the emergency department for evaluation of right lateral chest pain and intermittent shortness of breath in the setting of recent fall 1 week ago. At the time of examination she appears uncomfortable. She has no hypoxia, tachypnea, tachycardia, or fever. Will obtain CBC to evaluate for leukocytosis/ anemia, CMP to evaluate for abnormal electrolytes /abnormal renal function/ abnormal hepatic function, EKG and troponin to evaluate for ischemia/ACS. Chest x-ray to evaluate for consolidation/ pneumothorax, rib fracture, infiltrate. <Jessy Rivera CNP - Last Filed: 09/25/22 00:28> Differential Diagnosis Differential Diagnoses: The differential diagnosis associated with the presentation includes (As noted above) <Jessy Rivera CNP - Last Filed: 09/25/22 00:28> Lab Data [facility] Lab Attestation statement: I reviewed the patient's lab results. <Jessy Rivera CNP - Last Filed: 09/25/22 00:28> Result Diagrams: 09/24/22 12:31 09/24/22 12:31 <JEREMY Hurtado - Last Filed: 10/07/22 09:37> Labs: Lab Results 01/17/23 01/17/23 01/17/23 Range/Units 12:31 12:31 12:31 WBC 7.0 (4.8-10.8) X10*3/uL RBC 5.07 (4.20-5.50) X10*6/uL Hgb 14.6 (12.0-16.0) g/dl Hct 44.9 (37.0-47.0) % MCV 88.6 (80.0-98.0) fL MCH 28.8 (27.0-33.0) pg MCHC 32.5 (31.0-35.0) g/dl RDW 13.2 (11.0-16.0) % Plt Count 299 (160-400) X10*3/uL MPV 10.4 (9.4-12.3) fL Immature Gran % (Auto) 0.3 (0.0-0.4) % Neut % (Auto) 65.1 (45-73) % Lymph % (Auto) 25.3 (20-40) % [place] % (Auto) 6.5 (2-11) % Eos % (Auto) 1.7 (0-4) % Baso % (Auto) 1.1 (0-2) % Lymph # (Auto) 1.8 (1.2-4.9) X10*3/uL [place] # (Auto) 0.5 (0.1-1.2) X10*3/uL Eos # (Auto) 0.1 (0.0-0.4) X10*3/uL Baso # (Auto) 0.1 (0.0-0.2) X10*3/uL Abs Immat Gran (auto) 0.02 (0.00-0.03) X10*3/uL Absolute Neuts (auto) 4.5 (2.0-8.3) x10*3/uL Absolute Nucleated RBC 0.000 (0.0-0.012) X10*3/uL Nucleated RBC % (auto) 0.0 (0.0-0.2) /100WBC PT 10.3 (10.0-13.1) SEC INR 0.9 (0.9-1.1) APTT 38.7 H (26.0-36.4) SEC Sodium (135-145) mmol/L Potassium (3.3-5.1) mmol/L Chloride (96-108) mmol/L Carbon Dioxide (22-29) mmol/L Anion Gap (12-20) BUN (9-16) mg/dL Creatinine (0.5-1.4) mg/dL Estim Creat Clear Calc Estimated GFR Random Glucose (60-115) mg/dL Calcium (8.4-10.2) mg/dL Total Bilirubin (0.0-1.0) mg/dL AST (5-31) U/L ALT (0-31) U/L Alkaline Phosphatase (39-117) U/L Troponin I High Sens (<3.5-17.0) ng/L B-Natriuretic Peptide (<100) pg/mL Total Protein (6.5-8.0) g/dL Albumin (3.5-5.0) g/dL Influenza Type A (PCR) NEGATIVE (Negative) Influenza Type B (PCR) NEGATIVE (Negative) RSV RNA Qual (PCR) NEGATIVE (Negative) SARS-CoV-2 RNA (RT-PCR) NEGATIVE (Negative) 09/24/22 09/24/22 09/24/22 Range/Units 12:31 12:31 12:31 WBC (4.8-10.8) X10*3/uL RBC (4.20-5.50) X10*6/uL Hgb (12.0-16.0) g/dl Hct (37.0-47.0) % MCV (80.0-98.0) fL MCH (27.0-33.0) pg MCHC (31.0-35.0) g/dl RDW (11.0-16.0) % Plt Count (160-400) X10*3/uL MPV (9.4-12.3) fL Immature Gran % (Auto) (0.0-0.4) % Neut % (Auto) (45-73) % Lymph % (Auto) (20-40) % [place] % (Auto) (2-11) % Eos % (Auto) (0-4) % Baso % (Auto) (0-2) % Lymph # (Auto) (1.2-4.9) X10*3/uL [place] # (Auto) (0.1-1.2) X10*3/uL Eos # (Auto) (0.0-0.4) X10*3/uL Baso # (Auto) (0.0-0.2) X10*3/uL Abs Immat Gran (auto) (0.00-0.03) X10*3/uL Absolute Neuts (auto) (2.0-8.3) x10*3/uL Absolute Nucleated RBC (0.0-0.012) X10*3/uL Nucleated RBC % (auto) (0.0-0.2) /100WBC PT (10.0-13.1) SEC INR (0.9-1.1) APTT (26.0-36.4) SEC Sodium 141 (135-145) mmol/L Potassium 4.2 (3.3-5.1) mmol/L Chloride 109 H (96-108) mmol/L Carbon Dioxide 23 (22-29) mmol/L Anion Gap 13 (12-20) BUN 11 (9-16) mg/dL Creatinine 0.67 (0.5-1.4) mg/dL Estim Creat Clear Calc 106.8 Estimated GFR > 60 Random Glucose 98 (60-115) mg/dL Calcium 9.9 (8.4-10.2) mg/dL Total Bilirubin 0.2 (0.0-1.0) mg/dL AST 18 (5-31) U/L ALT 24 (0-31) U/L Alkaline Phosphatase 138 H (39-117) U/L Troponin I High Sens < 3.5 (<3.5-17.0) ng/L B-Natriuretic Peptide 20 (<100) pg/mL Total Protein 7.3 (6.5-8.0) g/dL Albumin 4.4 (3.5-5.0) g/dL Influenza Type A (PCR) (Negative) Influenza Type B (PCR) (Negative) RSV RNA Qual (PCR) (Negative) SARS-CoV-2 RNA (RT-PCR) (Negative) <JEREMY Hurtado - Last Filed: 10/07/22 09:37> Lab Results 09/24/22 09/24/22 09/24/22 Range/Units 12:31 12:31 12:31 WBC 7.0 (4.8-10.8) X10*3/uL RBC 5.07 (4.20-5.50) X10*6/uL Hgb 14.6 (12.0-16.0) g/dl Hct 44.9 (37.0-47.0) % MCV 88.6 (80.0-98.0) fL MCH 28.8 (27.0-33.0) pg MCHC 32.5 (31.0-35.0) g/dl RDW 13.2 (11.0-16.0) % Plt Count 299 (160-400) X10*3/uL MPV 10.4 (9.4-12.3) fL Immature Gran % (Auto) 0.3 (0.0-0.4) % Neut % (Auto) 65.1 (45-73) % Lymph % (Auto) 25.3 (20-40) % [place] % (Auto) 6.5 (2-11) % Eos % (Auto) 1.7 (0-4) % Baso % (Auto) 1.1 (0-2) % Lymph # (Auto) 1.8 (1.2-4.9) X10*3/uL [place] # (Auto) 0.5 (0.1-1.2) X10*3/uL Eos # (Auto) 0.1 (0.0-0.4) X10*3/uL Baso # (Auto) 0.1 (0.0-0.2) X10*3/uL Abs Immat Gran (auto) 0.02 (0.00-0.03) X10*3/uL Absolute Neuts (auto) 4.5 (2.0-8.3) x10*3/uL Absolute Nucleated RBC 0.000 (0.0-0.012) X10*3/uL Nucleated RBC % (auto) 0.0 (0.0-0.2) /100WBC PT 10.3 (10.0-13.1) SEC INR 0.9 (0.9-1.1) APTT 38.7 H (26.0-36.4) SEC Sodium (135-145) mmol/L Potassium (3.3-5.1) mmol/L Chloride (96-108) mmol/L Carbon Dioxide (22-29) mmol/L Anion Gap (12-20) BUN (9-16) mg/dL Creatinine (0.5-1.4) mg/dL Estim Creat Clear Calc Estimated GFR Random Glucose (60-115) mg/dL Calcium (8.4-10.2) mg/dL Total Bilirubin (0.0-1.0) mg/dL AST (5-31) U/L ALT (0-31) U/L Alkaline Phosphatase (39-117) U/L Troponin I High Sens (<3.5-17.0) ng/L B-Natriuretic Peptide (<100) pg/mL Total Protein (6.5-8.0) g/dL Albumin (3.5-5.0) g/dL Influenza Type A (PCR) NEGATIVE (Negative) Influenza Type B (PCR) NEGATIVE (Negative) RSV RNA Qual (PCR) NEGATIVE (Negative) SARS-CoV-2 RNA (RT-PCR) NEGATIVE (Negative) 09/24/22 09/24/22 09/24/22 Range/Units 12:31 12:31 12:31 WBC (4.8-10.8) X10*3/uL RBC (4.20-5.50) X10*6/uL Hgb (12.0-16.0) g/dl Hct (37.0-47.0) % MCV (80.0-98.0) fL MCH (27.0-33.0) pg MCHC (31.0-35.0) g/dl RDW (11.0-16.0) % Plt Count (160-400) X10*3/uL MPV (9.4-12.3) fL Immature Gran % (Auto) (0.0-0.4) % Neut % (Auto) (45-73) % Lymph % (Auto) (20-40) % [place] % (Auto) (2-11) % Eos % (Auto) (0-4) % Baso % (Auto) (0-2) % Lymph # (Auto) (1.2-4.9) X10*3/uL [place] # (Auto) (0.1-1.2) X10*3/uL Eos # (Auto) (0.0-0.4) X10*3/uL Baso # (Auto) (0.0-0.2) X10*3/uL Abs Immat Gran (auto) (0.00-0.03) X10*3/uL Absolute Neuts (auto) (2.0-8.3) x10*3/uL Absolute Nucleated RBC (0.0-0.012) X10*3/uL Nucleated RBC % (auto) (0.0-0.2) /100WBC PT (10.0-13.1) SEC INR (0.9-1.1) APTT (26.0-36.4) SEC Sodium 141 (135-145) mmol/L Potassium 4.2 (3.3-5.1) mmol/L Chloride 109 H (96-108) mmol/L Carbon Dioxide 23 (22-29) mmol/L Anion Gap 13 (12-20) BUN 11 (9-16) mg/dL Creatinine 0.67 (0.5-1.4) mg/dL Estim Creat Clear Calc 106.8 Estimated GFR > 60 Random Glucose 98 (60-115) mg/dL Calcium 9.9 (8.4-10.2) mg/dL Total Bilirubin 0.2 (0.0-1.0) mg/dL AST 18 (5-31) U/L ALT 24 (0-31) U/L Alkaline Phosphatase 138 H (39-117) U/L Troponin I High Sens < 3.5 (<3.5-17.0) ng/L B-Natriuretic Peptide 20 (<100) pg/mL Total Protein 7.3 (6.5-8.0) g/dL Albumin 4.4 (3.5-5.0) g/dL Influenza Type A (PCR) (Negative) Influenza Type B (PCR) (Negative) RSV RNA Qual (PCR) (Negative) SARS-CoV-2 RNA (RT-PCR) (Negative) <Jessy Rivera CNP - Last Filed: 09/25/22 00:28> Independent Interpretation I performed an independent interpretation of an: EKG (As noted in course) <Jessy Rivera CNP - Last Filed: 09/25/22 00:28> Radiology Impression Discussion of test interpretation with radiology: I have reviewed the radiologist's reading. <Jessy Rivera CNP - Last Filed: 09/25/22 00:28> Radiologist Impression: CT/CT chest wo IV con IMPRESSION: ? *? Mildly displaced fractures of the anterior lateral aspect of the right eighth and ninth ribs. ? *? No pneumothorax. ? *? Mild pulmonary emphysema. ? *? Linear densities likely platelike atelectasis lingula base and right lower lobe. ? *? Redemonstration of few scattered tiny nonspecific lung nodular densities measuring up to 3 mm or less. No suspicious mass or suspicious nodules. ? <Jessy Rivera CNP - Last Filed: 09/25/22 00:28> Prescription Management I considered prescription management with: Pain Medication <Jessy Rivera CNP - Last Filed: 09/25/22 00:28> Chronic Conditions Patient?s care impacted by: Other (COPD/asthma) <Jessy Rivera CNP - Last Filed: 09/25/22 00:28> Discharge Plan Discharge Clinical Impression: Fracture, rib <JEREMY Hurtado - Last Filed: 10/07/22 09:37> Patient Disposition: Home, Self-Care <JEREMY Hurtado - Last Filed: 10/07/22 09:37> Additional Instructions: Continue taking your pain medications as prescribed. As discussed, pain with rib fractures can last for some people up to 6 weeks Use the incentive spirometer as advised, slow deep breathing is recommended. Bracing of the right chest/area of pain to aid in decreasing pain during coughing, movement, sneezing. You may return back to the emergency department with any new or worsening symptoms or concerns. Please follow-up with your primary care provider as needed for persistent symptoms. <JEREMY Hurtado - Last Filed: 10/07/22 09:37> Prescriptions: No Action nitrofurantoin monohyd/m-cryst [Macrobid] 100 mg capsule 100 mg PO BID 10 Days Qty: 20 0RF Rx Instructions: must administer with a meal/food cyclobenzaprine 10 mg tablet 10 mg PO TID PRN (Reason: pain) Qty: 10 0RF lisinopril 10 mg tablet 10 mg PO DAILY Qty: 30 0RF prednisone 20 mg tablet 40 mg PO DAILY Qty: 10 0RF ondansetron HCl [Zofran] 4 mg tablet 4 mg PO Q6H PRN (Reason: nausea and vomiting) Qty: 14 0RF loperamide [Anti-Diarrheal (loperamide)] 2 mg tablet 2 mg PO Q4H PRN (Reason: loose stool) Qty: 14 0RF Rx Instructions: administer after each loose stool until symptoms controlled; do not exceed 8 mg per 24 hrs Darien-24 400 mg capsule,extended release 24hr 400 mg PO DAILY meloxicam 15 mg tablet 15 mg PO DAILY Spiriva with HandiHaler 18 mcg capsule, w/inhalation device 1 cap inhalation DAILY dicyclomine 10 mg capsule 10 mg PO QID hydrocortisone 10 mg tablet 0 mg PO folic acid 1 mg tablet 1 mg PO DAILY omeprazole 20 mg capsule,delayed release(DR/EC) 40 mg PO DAILY docusate sodium 100 mg capsule 100 mg PO BEDTIME PRN levothyroxine 100 mcg tablet 100 mcg PO DAILY topiramate 25 mg tablet 25 mg PO clonazepam 1 mg tablet 1 mg PO BID PRN (Reason: panic attack) albuterol sulfate 2.5 mg /3 mL (0.083 %) solution for nebulization inhalation TID nicotine 14 mg/24 hr patch 24 hour 1 patch topical DAILY oxycodone 15 mg tablet 15 mg PO Q6H PRN albuterol sulfate 90 mcg/actuation HFA aerosol inhaler 2 puff inhalation Q6H PRN budesonide-formoterol [Symbicort] 160-4.5 mcg/actuation HFA aerosol inhaler 2 puff inhalation BID nitroglycerin 0.3 mg tablet, sublingual 0.3 mg sublingual Q5M PRN Rx Instructions: do not exceed 3 doses per episode levothyroxine 75 mcg capsule 75 mcg PO DAILY montelukast [Singulair] 10 mg tablet 10 mg PO DAILY pregabalin [Lyrica] 300 mg capsule 300 mg PO BID phenytoin sodium extended [Dilantin Extended] 100 mg capsule 100 mg PO BID isosorbide mononitrate 30 mg tablet extended release 24 hr 30 mg PO DAILY Rx Instructions: 2 tabs daily hydrochlorothiazide 12.5 mg tablet 12.5 mg PO DAILY furosemide [Lasix] 20 mg tablet 10 mg PO QAM diclofenac sodium 1 % gel 2 g topical QID Rx Instructions: apply to single elbow, wrist or hand; for hand includes palm/fingers/back of hand lidocaine 5 % adhesive patch,medicated 3 patch topical DAILY Rx Instructions: leave on most painful area for up to 12 hrs simvastatin 20 mg tablet 20 mg PO DAILY aspirin 81 mg tablet,delayed release (DR/EC) 81 mg PO DAILY meclizine 25 mg tablet 25 mg PO DAILY phenazopyridine [Pyridium] 100 mg tablet 100 mg PO TID PRN (Reason: pain) Qty: 10 0RF Gemtesa 75 mg tablet 75 mg PO DAILY 30 Days Qty: 30 0RF <JEREMY Hurtado - Last Filed: 10/07/22 09:37> Referrals: Name,MD Tone [Primary Care Provider] - <JEREMY Hurtado - Last Filed: 10/07/22 09:37> Interventions: ED Discharge Assessment Last Done: 09/25/22 00:14 <JEREMY Hurtado - Last Filed: 10/07/22 09:37> Discharge Date/Time: 09/25/22 00:15 <JEREMY Hurtado - Last Filed: 10/07/22 09:37>
[2022-09-24 12:43] LABS: MANUAL DIFF FLAG NO
[2022-09-24 12:47] LABS: Basophils Absolute Auto 0.1 X10*3/uL (0.0-0.2); Basophils Percent Auto 1.1 % (0-2); Eosinophils Absolute Auto 0.1 X10*3/uL (0.0-0.4); Eosinophils Percent Auto 1.7 % (0-4); Hematocrit 44.9 % (37.0-47.0); Hemoglobin 14.6 g/dl (12.0-16.0); Imm Gran Abs Auto 0.02 X10*3/uL (0.00-0.03); Imm Gran Pct Auto 0.3 % (0.0-0.4); Lymphocytes Absolute Auto 1.8 X10*3/uL (1.2-4.9); Lymphocytes Percent Auto 25.3 % (20-40); Mean Corpuscular HGB Conc 32.5 g/dl (31.0-35.0); Mean Corpuscular Hemoglobin 28.8 pg (27.0-33.0); Mean Corpuscular Volume 88.6 fL (80.0-98.0); Mean Platelet Volume 10.4 fL (9.4-12.3); Monocytes Absolute Auto 0.5 X10*3/uL (0.1-1.2); Monocytes Percent Auto 6.5 % (2-11); Neutrophils Absolute Auto 4.5 x10*3/uL (2.0-8.3); Neutrophils Percent Auto 65.1 % (45-73); Platelet Count 299 X10*3/uL (160-400); Red Blood Count 5.07 X10*6/uL (4.20-5.50); Red Cell Distribution Width 13.2 % (11.0-16.0)
[2022-09-24 12:52] LABS: INTERNATIONAL NORM RATIO 0.9 (0.9-1.1); Prothrombin Time 10.3 SEC (10.0-13.1)
[2022-09-24 12:55] LABS: Partial Thromboplastin Time 38.7 SEC (26.0-36.4)
[2022-09-24 13:02] LABS: Alanine Aminotransferase 24 U/L (0-31); Albumin Level 4.4 g/dL (3.5-5.0); Alkaline Phosphatase 138 U/L (39-117); Anion Gap 13 (12-20); Aspartate Amino Transferase 18 U/L (5-31); Bilirubin Total 0.2 mg/dL (0.0-1.0); Blood Urea Nitrogen 11 mg/dL (9-16); Calcium 9.9 mg/dL (8.4-10.2); Carbon Dioxide 23 mmol/L (22-29); Chloride 109 mmol/L (96-108); Creatinine Clr Calc Pharmacy 106.8; Estimated Glomerular Filt Rate > 60; Glucose Random 98 mg/dL (60-115); Potassium 4.2 mmol/L (3.3-5.1); Sodium 141 mmol/L (135-145); Total Protein 7.3 g/dL (6.5-8.0)
[2022-09-24 13:07] LABS: B Type Natriuretic Peptide 20 pg/mL (<100)
[2022-09-24 13:11] LABS: Troponin-I High Sensitivity < 3.5 ng/L (<3.5-17.0)
[2022-09-24 13:33] LABS: Influenza A PCR NEGATIVE (Negative); Influenza B PCR NEGATIVE (Negative); Resp Syncy Virus RNA Qual PCR NEGATIVE (Negative); SARS COV2 PCR INHOUSE NEGATIVE (Negative)
[2022-09-24 21:31] VITALS: BP 137/70; PULSE 72; RESP 18; TEMP 36.8; O2SAT 96
--- NOTE | 2022-09-24 22:31 | ECG_ITS ---
Test Reason : CHEST PAIN Blood Pressure : / mmHG Vent. Rate : 068 BPM Atrial Rate : 068 BPM P-R Int : 150 ms QRS Dur : 086 ms QT Int : 418 ms P-R-T Axes : 037 018 057 degrees QTc Int : 444 ms Sinus rhythm with Premature supraventricular complexes Otherwise normal ECG When compared with ECG of 24-SEP-2022 12:20, Sinus rhythm has replaced Junctional rhythm Referred By: Jessy Rivera Electronically Signed By:VANIA KAPLAN MD
[2022-09-24 22:42] VITALS: RESP 18
[2022-09-24] MEDS: Morphine Sulfate 4 MG/ML CARTRIDGE IM (22:42)
--- NOTE | 2022-09-25 00:13 | PC.NURSE ---
Per PA patient educated on use of incentive spirometer. Pt educated on reason for use and importance of using spirometer to prevent pne. Pt verbalizes understanding of instructions.
== END 2022-09-25 00:15 | disposition home or self-care (01) ==
PROVIDERS: Physician Assistant; Emergency Provider Emergency Medicine Emergency Medical Services; PCP Internal Medicine Geriatric Medicine
DX: S22.41XA Multiple fractures of ribs, right side, initial encounter for closed fracture (principal); R07.89 Other chest pain; F17.210 Nicotine dependence, cigarettes, uncomplicated; R06.02 Shortness of breath; M54.6 Pain in thoracic spine; W01.0XXA Fall on same level from slipping, tripping and stumbling without subsequent striking against object, initial encounter; Y93.9 Activity, unspecified; Y92.9 Unspecified place or not applicable; Y99.9 Unspecified external cause status; Z20.828 Contact with and (suspected) exposure to other viral communicable diseases; Z20.822 Contact with and (suspected) exposure to COVID-19; Z71.6 Tobacco abuse counseling; Z79.899 Other long term (current) drug therapy; Z79.82 Long term (current) use of aspirin
CPT/HCPCS: 0241U; 36415; 71250; 80053; 83880; 84484; 85025; 85610; 85730; 93005; 96372; 99284; J2270

== ENCOUNTER 2022-10-08 13:35 | Emergency (ER) | payer MEDICAID, SELFPAY ==
--- NOTE | ~2022-10-08 | CT_ITS ---
EXAMINATION: CT HEAD WITHOUT CONTRAST CT CERVICAL SPINE WITHOUT CONTRAST CLINICAL INFORMATION: Trauma. COMPARISON: CT head 11/13/2021, 09/05/2021. CT cervical spine 01/31/2019 TECHNIQUE: Imaging was performed from the skull base to vertex without intravenous administration of contrast. In addition, helical noncontrast CT imaging was acquired through the cervical spine and source images were reviewed along with axial reconstructions and sagittal and coronal MPRs. [This CT examination was performed using dose optimization techniques as appropriate, variously including the following: *Automated exposure control *Adjustment of mA and/or kV according to patient size (this includes techniques or standardized protocols for targeted exams where dose is matched to indication/reason for exam; i.e. extremities or head) *Use of iterative reconstruction technique] DLP: 1619 mGy-cm FINDINGS: HEAD: No intracranial mass, hemorrhage, or midline shift is visualized. The ventricles and sulci are proportional. No extra-axial collections are identified. The paranasal sinuses and mastoid air cells are well aerated. CERVICAL SPINE: There is no evidence of acute cervical spine fracture. Vertebral bodies remain normal in height. Cervical vertebrae have normal alignment. There is multilevel degenerative spondylosis of the cervical spine with disc height narrowing and endplate spurs and facet joint arthrosis Limited assessment of the lung apices is unremarkable. Heterogeneous density left lobe of thyroid. Left lobe larger than the right. This correlates to the thyroid nodule seen on the ultrasound of thyroid exam 11/12/2013. Patient underwent a biopsy of the left lobe 1 11/12/2013. CT/CT cervical spine wo IV con IMPRESSION: 1. No acute intracranial pathology. 2. No CT evidence of acute cervical spine fracture or traumatic subluxation.
--- NOTE | ~2022-10-08 | XR_ITS ---
EXAMINATION: RIGHT HAND. RIGHT WRIST. CLINICAL INFORMATION: Pain after fall COMPARISON: None TECHNIQUE: 4 views of the right hand. AP coned-down view navicular bone FINDINGS: No acute fracture or dislocation. Orthopedic plate and screw in distal radius and ulna. Hardware intact. There is negative ulnar variance. The ulna is about 1 cm longer than the distal radius. This is likely posttraumatic from prior fracture. On the lateral view the ulna projects volar to the carpal bones. No impaction changes of the carpal bone. Joints of the hand and wrist are maintained without significant degenerative change. No soft tissue abnormality. XR/XR hand wrist RT IMPRESSION: 1. No acute abnormality. 2. Status post ORIF distal radius and ulna. 3. Negative ulnar variance. The ulna projects volar to the carpal bones. These changes likely related to old trauma.
--- NOTE | ~2022-10-08 | XR_ITS ---
EXAMINATION: XR SHOULDER, LEFT CLINICAL INFORMATION: Fall. COMPARISON: Radiograph of the left humerus 03/12/2019. TECHNIQUE: Three views of the left shoulder. FINDINGS: No acute fractures or malalignment. 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 No abnormal soft tissue calcifications. Included portions of the left-sided ribs and left lung are within normal limits. XR/XR shoulder LT min 2V IMPRESSION: No acute fractures or malalignment. 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
--- NOTE | ~2022-10-08 | XR_ITS ---
EXAMINATION: XR TIBIA AND FIBULA, RIGHT CLINICAL INFORMATION: Fracture, pain. COMPARISON: Radiograph of the right knee 03/22/2020. TECHNIQUE: AP and lateral views of the right tibia and fibula were obtained. FINDINGS: Lateral fixation plate with multiple traversing screws in the distal fibula. 2 obliquely oriented across the medial malleolus. Horizontally screw traversing the tibiofibular syndesmosis. No evidence of hardware failure. Chronic appearing deformities of the distal tibia and fibula. No acutely displaced fractures or subluxation. Nonspecific diffuse soft tissue swelling. XR/XR tibia fibula RT 2V IMPRESSION: 1. No acutely displaced fractures or subluxation. 2. Intact hardware. 3. Chronic appearing deformities of the distal tibia and fibula. 4. Nonspecific diffuse soft tissue swelling.
[2022-10-08 15:24] VITALS: BP 130/49; PULSE 74; RESP 20; TEMP 36.1; O2SAT 97; BMI 38.7
--- NOTE | 2022-10-08 15:30 | ED.GENADULT ---
HPI - General Adult General Chief complaint: Fall Stated complaint: Fall/R wrist pain Time Seen by Provider: 10/08/22 16:47 Related Data Home Medications Medication Instructions Recorded Confirmed albuterol sulfate 90 mcg/actuation 2 puff inhalation Q6H PRN 02/28/21 02/28/21 aerosol inhaler aspirin 81 mg tablet,delayed 81 mg PO DAILY 02/28/21 02/28/21 release budesonide-formoterol HFA 160 2 puff inhalation BID 02/28/21 02/28/21 mcg-4.5 mcg/actuation aerosol inhaler (Symbicort) diclofenac sodium 1 % topical gel 2 g topical QID 02/28/21 02/28/21 furosemide 20 mg tablet (Lasix) 10 mg PO QAM 02/28/21 02/28/21 hydrochlorothiazide 12.5 mg tablet 12.5 mg PO DAILY 02/28/21 02/28/21 isosorbide mononitrate 30 mg 30 mg PO DAILY 02/28/21 02/28/21 tablet,extended release 24 hr levothyroxine 75 mcg capsule 75 mcg PO DAILY 02/28/21 02/28/21 lidocaine 5 % topical patch 3 patch topical DAILY 02/28/21 02/28/21 meclizine 25 mg tablet 25 mg PO DAILY 02/28/21 02/28/21 montelukast 10 mg tablet 10 mg PO DAILY 02/28/21 02/28/21 (Singulair) nitroglycerin 0.3 mg sublingual 0.3 mg sublingual Q5M PRN 02/28/21 02/28/21 tablet oxycodone 15 mg tablet 15 mg PO Q6H PRN 02/28/21 02/28/21 phenytoin sodium extended 100 mg 100 mg PO BID 02/28/21 02/28/21 capsule (Dilantin Extended) pregabalin 300 mg capsule (Lyrica) 300 mg PO BID 02/28/21 02/28/21 simvastatin 20 mg tablet 20 mg PO DAILY 02/28/21 02/28/21 albuterol sulfate 2.5 mg/3 mL mg inhalation TID 05/24/21 (0.083 %) solution for nebulization clonazepam 1 mg tablet 1 mg PO BID PRN panic attack 05/24/21 dicyclomine 10 mg capsule 10 mg PO QID 05/24/21 docusate sodium 100 mg capsule 100 mg PO BEDTIME PRN 05/24/21 folic acid 1 mg tablet 1 mg PO DAILY 05/24/21 hydrocortisone 10 mg tablet 0 mg PO 05/24/21 levothyroxine 100 mcg tablet 100 mcg PO DAILY 05/24/21 meloxicam 15 mg tablet 15 mg PO DAILY 05/24/21 nicotine 14 mg/24 hr daily 1 patch topical DAILY 05/24/21 transdermal patch omeprazole 20 mg capsule,delayed 40 mg PO DAILY 05/24/21 release theophylline 400 mg 400 mg PO DAILY 05/24/21 capsule,extended release 24 hr ([place]-24) tiotropium bromide 18 mcg capsule 1 cap inhalation DAILY 05/24/21 with inhalation device (Spiriva with HandiHaler) topiramate 25 mg tablet 25 mg PO 05/24/21 Previous Rx's Medication Instructions Recorded cyclobenzaprine 10 mg tablet 10 mg PO TID PRN pain #10 tabs 06/22/20 lisinopril 10 mg tablet 10 mg PO DAILY #30 tabs 07/24/20 prednisone 20 mg tablet 40 mg PO DAILY #10 tabs 06/05/21 loperamide 2 mg tablet 2 mg PO Q4H PRN loose stool #14 07/09/21 (Anti-Diarrheal (loperamide)) tabs ondansetron HCl 4 mg tablet 4 mg PO Q6H PRN nausea and 07/09/21 (Zofran) vomiting #14 tabs phenazopyridine 100 mg tablet 100 mg PO TID PRN pain 6 doses #10 03/12/22 (Pyridium) tabs vibegron 75 mg tablet (Gemtesa) 75 mg PO DAILY 1 month #30 tabs 04/23/22 nitrofurantoin 100 mg PO BID 10 days #20 caps 08/19/22 monohydrate/macrocrystals 100 mg capsule (Macrobid) Allergies Allergy/AdvReac Type Severity Reaction Status Date / Time Penicillins [PENICILLINS] Allergy Severe HIVES Verified 04/23/22 08:39 amoxicillin [AMOXICILLIN] Allergy Intermediate HIVES Verified 04/23/22 08:39 ciprofloxacin [From Cipro] Allergy Intermediate Hives Verified 10/11/22 09:20 acetaminophen [From Tylox] Allergy Unknown Rash, Verified 10/11/22 09:20 Nausea and Vomiting aspirin [ASA] Allergy Unknown ITCHING Verified 04/23/22 08:39 ibuprofen [From Motrin] Allergy Unknown Gastrointestinal Verified 10/11/22 09:20 Upset latex [LATEX] Allergy Unknown RASH Verified 04/23/22 08:39 oxycodone [From Tylox] Allergy Unknown Rash, Verified 10/11/22 09:20 Nausea and Vomiting penicillin V Allergy Unknown rash Verified 04/23/22 08:39 PMFSH Past Medical History Medical History Asthma COPD (chronic obstructive pulmonary disease) Fibromyalgia HTN (hypertension) Hyperthyroidism Migraines Overactive bladder Seizure Sleep apnea Urinary retention Surgical History Hx of section Hx of hysterectomy Hx of tubal ligation Family History Family History Mother Diabetes HTN (hypertension) Heart failure Maternal Aunt Breast cancer Maternal Grandmother Breast cancer Social History Social History Alcohol intake: never Patient Tobacco Use Status: Current everyday Tobacco user Cigarettes Per Day: 10 Years Smoked: 30 Substance Use Type: Prescription Drugs Physical Exam ED Vital Signs: Vital Signs - 24 hr 10/08/22 15:24 Temperature 96.9 F Pulse Rate 74 Respiratory Rate 20 Blood Pressure 130/49 L Pulse Oximetry 97 Oxygen Delivery Method Room Air BMI result Body Mass Index 38.7 Course Course Course Narrative: RME: 61 yold female presents to the ED for right wrist, left shoulder, right tib/fib/ and bilatera hip pain after hard fall yesterda. Patient states no loss of concsiousness. patient hit head going down stairs. Patient states she tried to walk instead of using wheeling chair and she fell. Medications Administered Discontinued Medications Generic Name Dose Route Start Last Admin Trade Name Freq PRN Reason Stop Dose Admin Hydromorphone HCl 0.5 mg 10/08/22 17:16 10/08/22 17:36 Hydromorphone Hcl 0.5 Mg/0.5 Ml Syringe IVPUSH 10/08/22 17:17 0.5 mg ONCE ONE Administration Protocol Sodium Chloride 1,000 mls @ 999 mls/hr 10/08/22 17:15 10/08/22 17:36 Ns IV 10/08/22 18:15 999 mls/hr .Q1H1M HELEN Administration Medical Decision Making Lab Data 10/08/22 17:21 10/08/22 17:21 Labs: Lab Results 10/08/22 10/08/22 10/08/22 Range/Units 17:21 17:21 17:21 WBC 7.3 (4.8-10.8) X10*3/uL RBC 4.70 (4.20-5.50) X10*6/uL Hgb 13.5 (12.0-16.0) g/dl Hct 42.4 (37.0-47.0) % MCV 90.2 (80.0-98.0) fL MCH 28.7 (27.0-33.0) pg MCHC 31.8 (31.0-35.0) g/dl RDW 13.1 (11.0-16.0) % Plt Count 298 (160-400) X10*3/uL MPV 10.2 (9.4-12.3) fL Immature Gran % (Auto) 0.4 (0.0-0.4) % Neut % (Auto) 64.4 (45-73) % Lymph % (Auto) 24.7 (20-40) % [place] % (Auto) 7.4 (2-11) % Eos % (Auto) 2.1 (0-4) % Baso % (Auto) 1.0 (0-2) % Lymph # (Auto) 1.8 (1.2-4.9) X10*3/uL [place] # (Auto) 0.5 (0.1-1.2) X10*3/uL Eos # (Auto) 0.2 (0.0-0.4) X10*3/uL Baso # (Auto) 0.1 (0.0-0.2) X10*3/uL Abs Immat Gran (auto) 0.03 (0.00-0.03) X10*3/uL Absolute Neuts (auto) 4.7 (2.0-8.3) x10*3/uL Absolute Nucleated RBC 0.000 (0.0-0.012) X10*3/uL Nucleated RBC % (auto) 0.0 (0.0-0.2) /100WBC Sodium 142 (135-145) mmol/L Potassium 4.0 (3.3-5.1) mmol/L Chloride 106 (96-108) mmol/L Carbon Dioxide 28 (22-29) mmol/L Anion Gap 12 (12-20) BUN 8 L (9-16) mg/dL Creatinine 0.65 (0.5-1.4) mg/dL Estim Creat Clear Calc 110.6 Estimated GFR > 60 Random Glucose 104 (60-115) mg/dL Calcium 9.4 (8.4-10.2) mg/dL Total Creatine Kinase 70 (26-140) U/L Troponin I High Sens < 3.5 (<3.5-17.0) ng/L Discharge Plan Discharge Clinical Impression: Fibromyalgia, Fall Patient Disposition: Home, Self-Care Instructions: Fibromyalgia (ED), Fall Prevention for Older Adults (ED), Fall Prevention (ED) Additional Instructions: Risk of fracture exists in your wrist. Please follow-up with the orthopedics surgeon for a repeat x-ray. Prescriptions: No Action nitrofurantoin monohyd/m-cryst [Macrobid] 100 mg capsule 100 mg PO BID 10 Days Qty: 20 0RF Rx Instructions: must administer with a meal/food cyclobenzaprine 10 mg tablet 10 mg PO TID PRN (Reason: pain) Qty: 10 0RF lisinopril 10 mg tablet 10 mg PO DAILY Qty: 30 0RF prednisone 20 mg tablet 40 mg PO DAILY Qty: 10 0RF ondansetron HCl [Zofran] 4 mg tablet 4 mg PO Q6H PRN (Reason: nausea and vomiting) Qty: 14 0RF loperamide [Anti-Diarrheal (loperamide)] 2 mg tablet 2 mg PO Q4H PRN (Reason: loose stool) Qty: 14 0RF Rx Instructions: administer after each loose stool until symptoms controlled; do not exceed 8 mg per 24 hrs [place]-24 400 mg capsule,extended release 24hr 400 mg PO DAILY meloxicam 15 mg tablet 15 mg PO DAILY Spiriva with HandiHaler 18 mcg capsule, w/inhalation device 1 cap inhalation DAILY dicyclomine 10 mg capsule 10 mg PO QID hydrocortisone 10 mg tablet 0 mg PO folic acid 1 mg tablet 1 mg PO DAILY omeprazole 20 mg capsule,delayed release(DR/EC) 40 mg PO DAILY docusate sodium 100 mg capsule 100 mg PO BEDTIME PRN levothyroxine 100 mcg tablet 100 mcg PO DAILY topiramate 25 mg tablet 25 mg PO clonazepam 1 mg tablet 1 mg PO BID PRN (Reason: panic attack) albuterol sulfate 2.5 mg /3 mL (0.083 %) solution for nebulization inhalation TID nicotine 14 mg/24 hr patch 24 hour 1 patch topical DAILY oxycodone 15 mg tablet 15 mg PO Q6H PRN albuterol sulfate 90 mcg/actuation HFA aerosol inhaler 2 puff inhalation Q6H PRN budesonide-formoterol [Symbicort] 160-4.5 mcg/actuation HFA aerosol inhaler 2 puff inhalation BID nitroglycerin 0.3 mg tablet, sublingual 0.3 mg sublingual Q5M PRN Rx Instructions: do not exceed 3 doses per episode levothyroxine 75 mcg capsule 75 mcg PO DAILY montelukast [Singulair] 10 mg tablet 10 mg PO DAILY pregabalin [Lyrica] 300 mg capsule 300 mg PO BID phenytoin sodium extended [Dilantin Extended] 100 mg capsule 100 mg PO BID isosorbide mononitrate 30 mg tablet extended release 24 hr 30 mg PO DAILY Rx Instructions: 2 tabs daily hydrochlorothiazide 12.5 mg tablet 12.5 mg PO DAILY furosemide [Lasix] 20 mg tablet 10 mg PO QAM diclofenac sodium 1 % gel 2 g topical QID Rx Instructions: apply to single elbow, wrist or hand; for hand includes palm/fingers/back of hand lidocaine 5 % adhesive patch,medicated 3 patch topical DAILY Rx Instructions: leave on most painful area for up to 12 hrs simvastatin 20 mg tablet 20 mg PO DAILY aspirin 81 mg tablet,delayed release (DR/EC) 81 mg PO DAILY meclizine 25 mg tablet 25 mg PO DAILY phenazopyridine [Pyridium] 100 mg tablet 100 mg PO TID PRN (Reason: pain) Qty: 10 0RF Gemtesa 75 mg tablet 75 mg PO DAILY 30 Days Qty: 30 0RF Referrals: Name,MD Tone [Primary Care Provider] - 10/10/22 Interventions: ED Discharge Assessment Last Done: 10/08/22 18:22 Discharge Date/Time: 10/08/22 18:22
--- NOTE | 2022-10-08 17:03 | ECG_ITS ---
Test Reason : FALL Blood Pressure : / mmHG Vent. Rate : 063 BPM Atrial Rate : 063 BPM P-R Int : 168 ms QRS Dur : 086 ms QT Int : 436 ms P-R-T Axes : 138 -08 145 degrees QTc Int : 446 ms Unusual P axis, possible ectopic atrial rhythm Inferior infarct , age undetermined Abnormal ECG When compared with ECG of 24-SEP-2022 23:25, Ectopic atrial rhythm has replaced Sinus rhythm Referred By: Reina Sanchez Electronically Signed By:
--- NOTE | 2022-10-08 17:06 | ED.GENADULT ---
HPI - General Adult General Chief complaint: Fall Stated complaint: Fall/R wrist pain Time Seen by Provider: 10/08/22 16:47 History of Present Illness HPI narrative: Patient is a 61-year-old female with a history of fibromyalgia chronic weakness usually use a lift to get down stairs. Patient slipped. Complaining of pain to the left shoulder, right wrist, right leg. Patient denies any loss of consciousness. Has previous surgery to the wrist in the past. Is in a removable splint. Patient is from home. Patient is larger in size. 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 Unfortunately she slipped off the stair elevator. Patient claims she did not lose consciousness. She remembers the event. She did not have worsened weakness than what she had in the past. She denies having any chest pain no diaphoresis. She was helped by her boyfriend to bed. Came to the emergency department the next morning. Related Data Home Medications Medication Instructions Recorded Confirmed albuterol sulfate 90 mcg/actuation 2 puff inhalation Q6H PRN 02/28/21 02/28/21 aerosol inhaler aspirin 81 mg tablet,delayed 81 mg PO DAILY 02/28/21 02/28/21 release budesonide-formoterol HFA 160 2 puff inhalation BID 02/28/21 02/28/21 mcg-4.5 mcg/actuation aerosol inhaler (Symbicort) diclofenac sodium 1 % topical gel 2 g topical QID 02/28/21 02/28/21 furosemide 20 mg tablet (Lasix) 10 mg PO QAM 02/28/21 02/28/21 hydrochlorothiazide 12.5 mg tablet 12.5 mg PO DAILY 02/28/21 02/28/21 isosorbide mononitrate 30 mg 30 mg PO DAILY 02/28/21 02/28/21 tablet,extended release 24 hr levothyroxine 75 mcg capsule 75 mcg PO DAILY 02/28/21 02/28/21 lidocaine 5 % topical patch 3 patch topical DAILY 02/28/21 02/28/21 meclizine 25 mg tablet 25 mg PO DAILY 02/28/21 02/28/21 montelukast 10 mg tablet 10 mg PO DAILY 02/28/21 02/28/21 (Singulair) nitroglycerin 0.3 mg sublingual 0.3 mg sublingual Q5M PRN 02/28/21 02/28/21 tablet oxycodone 15 mg tablet 15 mg PO Q6H PRN 02/28/21 02/28/21 phenytoin sodium extended 100 mg 100 mg PO BID 02/28/21 02/28/21 capsule (Dilantin Extended) pregabalin 300 mg capsule (Lyrica) 300 mg PO BID 02/28/21 02/28/21 simvastatin 20 mg tablet 20 mg PO DAILY 02/28/21 02/28/21 albuterol sulfate 2.5 mg/3 mL mg inhalation TID 05/24/21 (0.083 %) solution for nebulization clonazepam 1 mg tablet 1 mg PO BID PRN panic attack 05/24/21 dicyclomine 10 mg capsule 10 mg PO QID 05/24/21 docusate sodium 100 mg capsule 100 mg PO BEDTIME PRN 05/24/21 folic acid 1 mg tablet 1 mg PO DAILY 05/24/21 hydrocortisone 10 mg tablet 0 mg PO 05/24/21 levothyroxine 100 mcg tablet 100 mcg PO DAILY 05/24/21 meloxicam 15 mg tablet 15 mg PO DAILY 05/24/21 nicotine 14 mg/24 hr daily 1 patch topical DAILY 05/24/21 transdermal patch omeprazole 20 mg capsule,delayed 40 mg PO DAILY 05/24/21 release theophylline 400 mg 400 mg PO DAILY 05/24/21 capsule,extended release 24 hr ([place]arien-24) tiotropium bromide 18 mcg capsule 1 cap inhalation DAILY 05/24/21 with inhalation device (Spiriva with HandiHaler) topiramate 25 mg tablet 25 mg PO 05/24/21 Previous Rx's Medication Instructions Recorded cyclobenzaprine 10 mg tablet 10 mg PO TID PRN pain #10 tabs 06/22/20 lisinopril 10 mg tablet 10 mg PO DAILY #30 tabs 07/24/20 prednisone 20 mg tablet 40 mg PO DAILY #10 tabs 06/05/21 loperamide 2 mg tablet 2 mg PO Q4H PRN loose stool #14 07/09/21 (Anti-Diarrheal (loperamide)) tabs ondansetron HCl 4 mg tablet 4 mg PO Q6H PRN nausea and 07/09/21 (Zofran) vomiting #14 tabs phenazopyridine 100 mg tablet 100 mg PO TID PRN pain 6 doses #10 03/12/22 (Pyridium) tabs vibegron 75 mg tablet (Gemtesa) 75 mg PO DAILY 1 month #30 tabs 04/23/22 nitrofurantoin 100 mg PO BID 10 days #20 caps 08/19/22 monohydrate/macrocrystals 100 mg capsule (Macrobid) Allergies Allergy/AdvReac Type Severity Reaction Status Date / Time Penicillins [PENICILLINS] Allergy Severe HIVES Verified 04/23/22 08:39 amoxicillin [AMOXICILLIN] Allergy Intermediate HIVES Verified 04/23/22 08:39 ciprofloxacin [From CIPRO] Allergy Intermediate HIVES Verified 04/23/22 08:39 aspirin [ASA] Allergy Unknown ITCHING Verified 04/23/22 08:39 ibuprofen [From MOTRIN] Allergy Unknown GI UPSET Verified 04/23/22 08:39 latex [LATEX] Allergy Unknown RASH Verified 04/23/22 08:39 latex Allergy Unknown rash Verified 04/23/22 08:39 penicillin V Allergy Unknown rash Verified 04/23/22 08:39 Tylox Allergy Unknown rash Verified 04/23/22 08:39 acetaminophen [From TYLOX] AdvReac Severe NAUSEA & Verified 04/23/22 08:39 VOMITING Review of Systems Review of Systems: Positive generalized malaise weakness positive pain to the left shoulder positive pain to the right leg Yes all other systems are reviewed and are negative [facility] Past Medical History Attestation statement: The following information was validated with the patient. Medical History Asthma COPD (chronic obstructive pulmonary disease) Fibromyalgia HTN (hypertension) Hyperthyroidism Migraines Overactive bladder Seizure Sleep apnea Urinary retention Surgical History Hx of section Hx of hysterectomy Hx of tubal ligation Family History Family History Mother Diabetes HTN (hypertension) Heart failure Maternal Aunt Breast cancer Maternal Grandmother Breast cancer Social History Social History Alcohol intake: never Patient Tobacco Use Status: Current everyday Tobacco user Cigarettes Per Day: 10 Years Smoked: 30 Substance Use Type: Prescription Drugs Advance Directives: No Advance Directives Information Provided: No Physical Exam ED Vital Signs: Vital Signs - 24 hr 10/08/22 15:24 Temperature 96.9 F Pulse Rate 74 Respiratory Rate 20 Blood Pressure 130/49 L Pulse Oximetry 97 Oxygen Delivery Method Room Air BMI result Body Mass Index 38.7 Appearance: Alert. Oriented X3. No acute distress. Eyes: Pupils equal, round and reactive to light. ENT: Pharynx normal. Neck: Normal inspection. Neck supple. No lymph nodes noted. No crepitus. There is no posterior C-spine tenderness elicited on palpation CVS: Normal heart rate and rhythm. Pulses normal. Normal S1 and S2 Respiratory: Diminished breath sounds bilaterally es Abdomen: Soft and nontender. No rigidity. No distention. good BS x4 Skin: Skin warm and dry. Normal skin color. Normal skin turgor. Extremities: Examination of the left shoulder showed good range of motion. There is no deformity noted. Distal neurovascularly intact. Pulses 2+ radial. Fair range of motion. Examination of the right wrist showed no gross deformity noted. Skin intact. Pulse 2 + at radial. Able to move fingers without any difficulty. There is no anatomical snuffbox tenderness. Capillary refills less than 2 seconds. Sensation over the median radial and ulnar nerve intact. Examination of the right leg showed pain on movement of the knee. Gross range of motion intact. Distal pulses intact. Sensation intact. Neuro: Oriented X 3. No motor deficit. No sensory deficit. Moving all extermities. No slurred speech Medications Administered Generic Name Dose Route Start Last Admin Trade Name Freq PRN Reason Stop Dose Admin Sodium Chloride 1,000 mls @ 999 mls/hr 10/08/22 17:15 10/08/22 17:36 Ns IV 10/08/22 18:15 999 mls/hr .[id number] HELEN Administration Discontinued Medications Generic Name Dose Route Start Last Admin Trade Name Freq PRN Reason Stop Dose Admin Hydromorphone HCl 0.5 mg 10/08/22 17:16 10/08/22 17:36 Hydromorphone Hcl 0.5 Mg/0.5 Ml Syringe IVPUSH 10/08/22 17:17 0.5 mg ONCE ONE Administration Protocol Medical Decision Making Medical Decision Making MDM Narrative: Patient status post accidental fall. Has pain to the left shoulder, pain to the right wrist, pain to the right leg. X-ray of the shoulder, wrist, tib-fib was ordered. I personally reviewed the x-ray. There is no acute fracture noted. The finding was concurred by Radiology. Patient claims she is constantly week. This is not new. Given her history her age an EKG was done. My interpretation of her EKG showed a sinus rhythm heart rate is 60 AK QRS QT within normal limits there is no acute ST segment elevation. One set of cardiac enzyme was done it was negative. Patient's CK was 70 there is no evidence for rhabdo. Her kidney functions normal. Her hemoglobin is baseline. Patient is no distress. Denies having any bloody stool. She has a history of fibromyalgia claims this is very similar. Patient is in stable condition. Explained to patient small fracture can still occur in the wrist. She should wear the brace and follow up on an outpatient basis. CT scan of the head was grossly negative. There is no evidence of bleeding. CT scan of the x-ray showed no acute evidence of fracture. Currently is in stable condition with discharge home. Differential Diagnosis Differential Diagnoses: The differential diagnosis associated with the presentation includes Differential diagnosis include back fracture, bleed, causes of weakness dizziness. Admission/Observation Consideration of admission/observation: Escalation of care including admission/observation considered Considered admission but given patient's workup was negative will discharge patient home. Lab Data MDM Lab Attestation statement: I reviewed the patient's lab results. 10/08/22 17:21 10/08/22 17:21 Labs: Lab Results 10/08/22 10/08/22 10/08/22 Range/Units 17:21 17:21 17:21 WBC 7.3 (4.8-10.8) X10*3/uL RBC 4.70 (4.20-5.50) X10*6/uL Hgb 13.5 (12.0-16.0) g/dl Hct 42.4 (37.0-47.0) % MCV 90.2 (80.0-98.0) fL MCH 28.7 (27.0-33.0) pg MCHC 31.8 (31.0-35.0) g/dl RDW 13.1 (11.0-16.0) % Plt Count 298 (160-400) X10*3/uL MPV 10.2 (9.4-12.3) fL Immature Gran % (Auto) 0.4 (0.0-0.4) % Neut % (Auto) 64.4 (45-73) % Lymph % (Auto) 24.7 (20-40) % [place] % (Auto) 7.4 (2-11) % Eos % (Auto) 2.1 (0-4) % Baso % (Auto) 1.0 (0-2) % Lymph # (Auto) 1.8 (1.2-4.9) X10*3/uL [place] # (Auto) 0.5 (0.1-1.2) X10*3/uL Eos # (Auto) 0.2 (0.0-0.4) X10*3/uL Baso # (Auto) 0.1 (0.0-0.2) X10*3/uL Abs Immat Gran (auto) 0.03 (0.00-0.03) X10*3/uL Absolute Neuts (auto) 4.7 (2.0-8.3) x10*3/uL Absolute Nucleated RBC 0.000 (0.0-0.012) X10*3/uL Nucleated RBC % (auto) 0.0 (0.0-0.2) /100WBC Sodium 142 (135-145) mmol/L Potassium 4.0 (3.3-5.1) mmol/L Chloride 106 (96-108) mmol/L Carbon Dioxide 28 (22-29) mmol/L Anion Gap 12 (12-20) BUN 8 L (9-16) mg/dL Creatinine 0.65 (0.5-1.4) mg/dL Estim Creat Clear Calc 110.6 Estimated GFR > 60 Random Glucose 104 (60-115) mg/dL Calcium 9.4 (8.4-10.2) mg/dL Total Creatine Kinase 70 (26-140) U/L Troponin I High Sens < 3.5 (<3.5-17.0) ng/L Independent Interpretation I performed an independent interpretation of an: EKG Interpretation: Sinus heart rate is 60 AK QRS QT within normal limits is no acute ST segment elevation Radiology Impression Discussion of test interpretation with radiology: I have reviewed the radiologist's reading. Chronic Conditions Patient?s care impacted by: Hypertension Chronic pain, fibromyalgia Social Determinants Patient?s care significantly limited by Social Determinants of Health including: Inadequate housing Discharge Plan Discharge Clinical Impression: Fibromyalgia, Fall Patient Disposition: Home, Self-Care Instructions: Fibromyalgia (ED), Fall Prevention (ED), Fall Prevention for Older Adults (ED) Additional Instructions: Risk of fracture exists in your wrist. Please follow-up with the orthopedics surgeon for a repeat x-ray. Prescriptions: No Action nitrofurantoin monohyd/m-cryst [Macrobid] 100 mg capsule 100 mg PO BID 10 Days Qty: 20 0RF Rx Instructions: must administer with a meal/food cyclobenzaprine 10 mg tablet 10 mg PO TID PRN (Reason: pain) Qty: 10 0RF lisinopril 10 mg tablet 10 mg PO DAILY Qty: 30 0RF prednisone 20 mg tablet 40 mg PO DAILY Qty: 10 0RF ondansetron HCl [Zofran] 4 mg tablet 4 mg PO Q6H PRN (Reason: nausea and vomiting) Qty: 14 0RF loperamide [Anti-Diarrheal (loperamide)] 2 mg tablet 2 mg PO Q4H PRN (Reason: loose stool) Qty: 14 0RF Rx Instructions: administer after each loose stool until symptoms controlled; do not exceed 8 mg per 24 hrs Darien-24 400 mg capsule,extended release 24hr 400 mg PO DAILY meloxicam 15 mg tablet 15 mg PO DAILY Spiriva with HandiHaler 18 mcg capsule, w/inhalation device 1 cap inhalation DAILY dicyclomine 10 mg capsule 10 mg PO QID hydrocortisone 10 mg tablet 0 mg PO folic acid 1 mg tablet 1 mg PO DAILY omeprazole 20 mg capsule,delayed release(DR/EC) 40 mg PO DAILY docusate sodium 100 mg capsule 100 mg PO BEDTIME PRN levothyroxine 100 mcg tablet 100 mcg PO DAILY topiramate 25 mg tablet 25 mg PO clonazepam 1 mg tablet 1 mg PO BID PRN (Reason: panic attack) albuterol sulfate 2.5 mg /3 mL (0.083 %) solution for nebulization inhalation TID nicotine 14 mg/24 hr patch 24 hour 1 patch topical DAILY oxycodone 15 mg tablet 15 mg PO Q6H PRN albuterol sulfate 90 mcg/actuation HFA aerosol inhaler 2 puff inhalation Q6H PRN budesonide-formoterol [Symbicort] 160-4.5 mcg/actuation HFA aerosol inhaler 2 puff inhalation BID nitroglycerin 0.3 mg tablet, sublingual 0.3 mg sublingual Q5M PRN Rx Instructions: do not exceed 3 doses per episode levothyroxine 75 mcg capsule 75 mcg PO DAILY montelukast [Singulair] 10 mg tablet 10 mg PO DAILY pregabalin [Lyrica] 300 mg capsule 300 mg PO BID phenytoin sodium extended [Dilantin Extended] 100 mg capsule 100 mg PO BID isosorbide mononitrate 30 mg tablet extended release 24 hr 30 mg PO DAILY Rx Instructions: 2 tabs daily hydrochlorothiazide 12.5 mg tablet 12.5 mg PO DAILY furosemide [Lasix] 20 mg tablet 10 mg PO QAM diclofenac sodium 1 % gel 2 g topical QID Rx Instructions: apply to single elbow, wrist or hand; for hand includes palm/fingers/back of hand lidocaine 5 % adhesive patch,medicated 3 patch topical DAILY Rx Instructions: leave on most painful area for up to 12 hrs simvastatin 20 mg tablet 20 mg PO DAILY aspirin 81 mg tablet,delayed release (DR/EC) 81 mg PO DAILY meclizine 25 mg tablet 25 mg PO DAILY phenazopyridine [Pyridium] 100 mg tablet 100 mg PO TID PRN (Reason: pain) Qty: 10 0RF Gemtesa 75 mg tablet 75 mg PO DAILY 30 Days Qty: 30 0RF Referrals: Name,MD Tone [Primary Care Provider] - 10/10/22
[2022-10-08 17:27] LABS: MANUAL DIFF FLAG NO
[2022-10-08 17:32] LABS: Basophils Absolute Auto 0.1 X10*3/uL (0.0-0.2); Eosinophils Absolute Auto 0.2 X10*3/uL (0.0-0.4); Eosinophils Percent Auto 2.1 % (0-4); Hematocrit 42.4 % (37.0-47.0); Hemoglobin 13.5 g/dl (12.0-16.0); Imm Gran Abs Auto 0.03 X10*3/uL (0.00-0.03); Imm Gran Pct Auto 0.4 % (0.0-0.4); Lymphocytes Absolute Auto 1.8 X10*3/uL (1.2-4.9); Lymphocytes Percent Auto 24.7 % (20-40); Mean Corpuscular HGB Conc 31.8 g/dl (31.0-35.0); Mean Corpuscular Hemoglobin 28.7 pg (27.0-33.0); Mean Corpuscular Volume 90.2 fL (80.0-98.0); Mean Platelet Volume 10.2 fL (9.4-12.3); Monocytes Absolute Auto 0.5 X10*3/uL (0.1-1.2); Monocytes Percent Auto 7.4 % (2-11); Neutrophils Absolute Auto 4.7 x10*3/uL (2.0-8.3); Neutrophils Percent Auto 64.4 % (45-73); Platelet Count 298 X10*3/uL (160-400); Red Cell Distribution Width 13.1 % (11.0-16.0); White Blood Count 7.3 X10*3/uL (4.8-10.8)
[2022-10-08] MEDS: 0.9 % Sodium Chloride 1,000 ML 999 ML IV (17:36)
[2022-10-08] MEDS: HYDROmorphone HCl 0.5 MG/0.5 ML SYRINGE IVPUSH (17:36)
[2022-10-08 17:59] LABS: Anion Gap 12 (12-20); Blood Urea Nitrogen 8 mg/dL (9-16); Calcium 9.4 mg/dL (8.4-10.2); Carbon Dioxide 28 mmol/L (22-29); Chloride 106 mmol/L (96-108); Creatinine Clr Calc Pharmacy 110.6; Estimated Glomerular Filt Rate > 60; Glucose Random 104 mg/dL (60-115); Sodium 142 mmol/L (135-145)
[2022-10-08 18:03] LABS: Troponin-I High Sensitivity < 3.5 ng/L (<3.5-17.0)
== END 2022-10-08 18:22 | disposition home or self-care (01) ==
PROVIDERS: Emergency Provider Emergency Medicine Emergency Medical Services; PCP Internal Medicine Geriatric Medicine
DX: M79.7 Fibromyalgia (principal); Z91.81 History of falling
CPT/HCPCS: 36415; 70450; 72125; 73030; 73110; 73130; 73590; 80048; 82550; 84484; 85025; 93005; 96374; 99283; 99284; J1170

== ENCOUNTER 2022-10-14 11:20 | Emergency (ER) | payer MEDICAID, SELFPAY ==
--- NOTE | ~2022-10-14 | CT_ITS ---
EXAMINATION: CT BRAIN AND CT CERVICAL SPINE WITHOUT CONTRAST. CLINICAL INFORMATION: Fall. COMPARISON: CT brain and CT cervical spine without contrast 10/08/2022. TECHNIQUE: 5 mm thin axial and reformatted 2 mm thin sagittal and coronal images of brain were obtained without contrast. 3 mm thin axial and reformatted 2 mm thin sagittal coronal images of cervical spine were obtained without contrast. This CT examination was performed using dose optimization technique as appropriate, variously including the following: Automated exposure control Adjustment of MA and/or KV according to patient size(this includes techniques or standardized protocols for targeted exams where dose is matched to indication/reason for exam; extremities or head. Use of iterative reconstruction techniques. FINDINGS: Brain: There is no acute intra-axial, extra-axial bleed, masses or midline shift. Both lateral ventricles are symmetrical in size and configuration without enlargement. The lateral ventricles are symmetrical in size and configuration without enlargement. The baker to white matter difference is maintained normal. Bone windows reveal no calvarial abnormality. There is no scalp soft tissue swelling. Bilateral paranasal sinuses and mastoid air cells are well-aerated. Cervical spine: There is mild straightening of cervical lordosis. The vertebral heights, alignment and disc heights are normal. No visible acute fracture, dislocation or subluxation seen. The craniovertebral junction and the C1-C2 alignment is normal. The prevertebral and paravertebral soft tissues are normal. The airway is widely patent. There is mild asymmetric enlargement left thyroid gland. The lung apices are clear. CT/CT cervical spine wo IV con IMPRESSION: 1. No acute intracranial process seen. 2. There is no acute fracture, dislocation or subluxation in cervical spine. 3. Asymmetrically enlarged left thyroid lobe.
--- NOTE | ~2022-10-14 | CT_ITS ---
EXAMINATION: CT CHEST, ABDOMEN AND PELVIS WITHOUT CONTRAST CLINICAL INFORMATION: Fall. Rib fracture. COMPARISON: CT chest 09/24/2022. CT abdomen and pelvis 11/13/2021 TECHNIQUE: Multidetector volumetric CT imaging of the chest, abdomen and pelvis was obtained without IV contrast. Coronal and sagittal reformatted images are performed at CT scanner [This CT examination was performed using dose optimization techniques as appropriate, variously including the following: *Automated exposure control *Adjustment of mA and/or kV according to patient size (this includes techniques or standardized protocols for targeted exams where dose is matched to indication/reason for exam; i.e. extremities or head) *Use of iterative reconstruction technique] DLP: 627+1306 mGy-cm. FINDINGS: Artifact from imaging from the patient's arms at side CT CHEST: Lungs: Mild centrilobular emphysematous change of lungs. No acute airspace disease. Linear scarring atelectasis at lung bases. No suspicious lung nodules. There are few stable scattered micronodules unchanged since prior exam. Mediastinum: The mediastinum is normal. Pleura: There is no pleural effusion. No pleural mass or thickening. Axilla: No lymphadenopathy. CT ABDOMEN AND PELVIS: Liver, Gallbladder and Biliary Tree: Stable hepatic cyst left lobe of liver. There is a 1.6 cm hypoattenuating lesion and an adjacent 0.5 cm hypoattenuating lesion axial image 15/41 series 33. These are unchanged since prior studies likely small hepatic cysts. No suspicious liver lesions. No intrahepatic bile duct dilatation. The gallbladder is unremarkable with no evidence of radiopaque gallstones, gallbladder wall thickening, or obvious pericholecystic inflammatory changes. Pancreas: No acute change of the pancreas. No mass. No pancreatic duct dilatation. Spleen: Spleen normal in size and contour. No focal lesion. Adrenal Glands: Adrenal glands are normal in size. No focal mass. Kidneys and Ureters: The kidneys are normal in size, shape, and attenuation. No hydronephrosis, hydroureter, or calculi seen. No perinephric stranding. Bladder: Unremarkable. Gastrointestinal Tract: There are scattered diverticula of the sigmoid colon. There is no diverticulitis. There is no bowel wall thickening /edema. There is no bowel obstruction. There is a moderate volume of stool in the colon. The appendix is normal . The small bowel loops are unremarkable. The stomach is normal. There is no hiatal hernia. Mesentery: No focal inflammation. No free fluid. No free air. Abdominal Wall: No significant hernia is appreciated. Lymph Nodes: No significant lymphadenopathy. Vascular: Mild scattered vascular calcification of the aorta. No aneurysm. Pelvic Viscera: Status post hysterectomy. No pelvic mass or inflammation. Osseous Structures: No acute osseous abnormality. There are healing fractures of the anterior right seventh and eighth ribs. Multilevel degenerative spondylosis spine. Marked disc height narrowing and endplate spur and vacuum disc phenomenon L3-L4. Bilateral spondylolysis of the L5 pars interarticularis. No significant anterolisthesis. CT/CT abdomen pelvis wo IV con IMPRESSION: No acute abnormality CT scan chest, abdomen or pelvis.
[2022-10-14 11:55] VITALS: BP 163/76; PULSE 73; RESP 18; TEMP 36.4; O2SAT 95; BMI 38.4
--- NOTE | 2022-10-14 11:57 | ED_ITS ---
HPI - General Adult General Chief complaint: Fall <JEREMY Hurtado Last Filed: 10/14/22 19:11> Stated complaint: Multiple falls <JEREMY Hurtado Last Filed: 10/14/22 19:11> Time Seen by Provider: 10/14/22 15:56 <JEREMY Hurtado - Last Filed: 10/14/22 19:11> Source: patient <JEREMY Watson Last Filed: 10/14/22 17:38> Mode of arrival: ambulatory <JEREMY Watson Last Filed: 10/14/22 17:38> Limitations: no limitations <JEREMY Watson Last Filed: 10/14/22 17:38> History of Present Illness HPI narrative: Patient is a 61 year old assigned female at with a history of neuropathy and fibromyalgia presenting to the emergency department today with generalized body pain after a fall. Patient states that she tripped and fell down her last 2 steps and has full body pain. Patient denies hitting her head with the incident. Patient denies any loss of consciousness with the incident. Patient denies any dizziness, lightheadedness, abdominal pain, nausea, vomiting, fever, chills, blurry vision, double vision, loss of vision, chest pain, difficulty breathing, shortness of breath, back pain, night sweats, pain with urination, increased urinary frequency, increased urinary urgency, blood in her urine or stool, syncope or a near syncopal episode, bowel incontinence, bladder incontinence, bowel retention, bladder retention, or any other complaints at this time. <JEREMY Watson - Last Filed: 10/14/22 17:38> Onset (ago): hour(s) <JEREMY Watson - Last Filed: 10/14/22 17:38> Severity: mild <JEREMY Watson Last Filed: 10/14/22 17:38> Severity scale (1-10): 1 <JEREMY Watson Last Filed: 10/14/22 17:38> Relieving factors: none <JEREMY Watson Last Filed: 10/14/22 17:38> Exacerbating factors: none <JEREMY Watson Last Filed: 10/14/22 17:38> Associated symptoms: denies other symptoms <JEREMY Watson - Last Filed: 10/14/22 17:38> Treatments prior to arrival: none <JEREMY Watson - Last Filed: 10/14/22 17:38> Related Data Home medications: Home Medications Medication Instructions Recorded Confirmed albuterol sulfate 90 mcg/actuation 2 puff inhalation Q6H PRN 02/28/21 02/28/21 aerosol inhaler aspirin 81 mg tablet,delayed 81 mg PO DAILY 02/28/21 02/28/21 release budesonide-formoterol HFA 160 2 puff inhalation BID 02/28/21 02/28/21 mcg-4.5 mcg/actuation aerosol inhaler (Symbicort) diclofenac sodium 1 % topical gel 2 g topical QID 02/28/21 02/28/21 furosemide 20 mg tablet (Lasix) 10 mg PO QAM 02/28/21 02/28/21 hydrochlorothiazide 12.5 mg tablet 12.5 mg PO DAILY 02/28/21 02/28/21 isosorbide mononitrate 30 mg 30 mg PO DAILY 02/28/21 02/28/21 tablet,extended release 24 hr levothyroxine 75 mcg capsule 75 mcg PO DAILY 02/28/21 02/28/21 lidocaine 5 % topical patch 3 patch topical DAILY 02/28/21 02/28/21 meclizine 25 mg tablet 25 mg PO DAILY 02/28/21 02/28/21 montelukast 10 mg tablet 10 mg PO DAILY 02/28/21 02/28/21 (Singulair) nitroglycerin 0.3 mg sublingual 0.3 mg sublingual Q5M PRN 02/28/21 02/28/21 tablet oxycodone 15 mg tablet 15 mg PO Q6H PRN 02/28/21 02/28/21 phenytoin sodium extended 100 mg 100 mg PO BID 02/28/21 02/28/21 capsule (Dilantin Extended) pregabalin 300 mg capsule (Lyrica) 300 mg PO BID 02/28/21 02/28/21 simvastatin 20 mg tablet 20 mg PO DAILY 02/28/21 02/28/21 albuterol sulfate 2.5 mg/3 mL mg inhalation TID 05/24/21 (0.083 %) solution for nebulization clonazepam 1 mg tablet 1 mg PO BID PRN panic attack 05/24/21 dicyclomine 10 mg capsule 10 mg PO QID 05/24/21 docusate sodium 100 mg capsule 100 mg PO BEDTIME PRN 05/24/21 folic acid 1 mg tablet 1 mg PO DAILY 05/24/21 hydrocortisone 10 mg tablet 0 mg PO 05/24/21 levothyroxine 100 mcg tablet 100 mcg PO DAILY 05/24/21 meloxicam 15 mg tablet 15 mg PO DAILY 05/24/21 nicotine 14 mg/24 hr daily 1 patch topical DAILY 05/24/21 transdermal patch omeprazole 20 mg capsule,delayed 40 mg PO DAILY 05/24/21 release theophylline 400 mg 400 mg PO DAILY 05/24/21 capsule,extended release 24 hr ([place]-24) tiotropium bromide 18 mcg capsule 1 cap inhalation DAILY 05/24/21 with inhalation device (Spiriva with HandiHaler) topiramate 25 mg tablet 25 mg PO 05/24/21 Previous Rx's Medication Instructions Recorded cyclobenzaprine 10 mg tablet 10 mg PO TID PRN pain #10 tabs 06/22/20 lisinopril 10 mg tablet 10 mg PO DAILY #30 tabs 07/24/20 prednisone 20 mg tablet 40 mg PO DAILY #10 tabs 06/05/21 loperamide 2 mg tablet 2 mg PO Q4H PRN loose stool #14 07/09/21 (Anti-Diarrheal (loperamide)) tabs ondansetron HCl 4 mg tablet 4 mg PO Q6H PRN nausea and 07/09/21 (Zofran) vomiting #14 tabs phenazopyridine 100 mg tablet 100 mg PO TID PRN pain 6 doses #10 03/12/22 (Pyridium) tabs vibegron 75 mg tablet (Gemtesa) 75 mg PO DAILY 1 month #30 tabs 04/23/22 nitrofurantoin 100 mg PO BID 10 days #20 caps 08/19/22 monohydrate/macrocrystals 100 mg capsule (Macrobid) <JEREMY Hurtado - Last Filed: 10/14/22 19:11> Allergies/adverse reactions: Allergies Allergy/AdvReac Type Severity Reaction Status Date / Time Penicillins [PENICILLINS] Allergy Severe HIVES Verified 04/23/22 08:39 amoxicillin [AMOXICILLIN] Allergy Intermediate HIVES Verified 04/23/22 08:39 ciprofloxacin [From Cipro] Allergy Intermediate Hives Verified 10/11/22 09:20 acetaminophen [From Tylox] Allergy Unknown Rash, Verified 10/11/22 09:20 Nausea and Vomiting aspirin [ASA] Allergy Unknown ITCHING Verified 04/23/22 08:39 ibuprofen [From Motrin] Allergy Unknown Gastrointestinal Verified 10/11/22 09:20 Upset latex [LATEX] Allergy Unknown RASH Verified 04/23/22 08:39 oxycodone [From Tylox] Allergy Unknown Rash, Verified 10/11/22 09:20 Nausea and Vomiting penicillin V Allergy Unknown rash Verified 04/23/22 08:39 <JEREMY Hurtado - Last Filed: 10/14/22 19:11> Review of Systems Constitutional: Constitutional: Reports no additional constitutional complaints, Denies chills, Denies fever(s) and Denies night sweats <JEREMY Watson Last Filed: 10/14/22 17:38> Eyes: Eyes: Reports no additional eye complaints, Denies blurry vision, Denies change in vision, Denies diplopia, Denies eye discharge, Denies loss of vision and Denies eye pain <JEREMY Watson Last Filed: 10/14/22 17:38> ENT: Denies dizziness <JEREMY Watson Last Filed: 10/14/22 17:38> Cardiovascular: Cardiovascular: Reports no additional cardiovascular complain ts, Denies chest pain, Denies lightheadedness, Denies Loss of Consciousness and Denies dyspnea <JEREMY Watson Last Filed: 10/14/22 17:38> Respiratory: Respiratory: Reports no additional respiratory complaints and Denies dyspnea <JEREMY Watson Last Filed: 10/14/22 17:38> Gastrointestinal: Gastrointestinal: Reports no additional gastrointestinal complaints, Denies abdominal pain, Denies melena, Denies hematochezia, Denies change in bowel habits and Denies change in stool character <JEREMY Watson Last Filed: 10/14/22 17:38> Genitourinary: Genitourinary: Denies hematuria, Denies urinary frequency, Denies dysuria, Denies urinary incontinence, Denies urinary hesitancy and Denies urinary urgency <JEREMY Watson - Last Filed: 10/14/22 17:38> Musculoskeletal: Musculoskeletal: Reports no additional musculoskeletal complaints, Denies numbness and Denies tingling <JEREMY Watson - Last Filed: 10/14/22 17:38> Neurologic: Denies dizziness, Denies loss of vision, Denies numbness and Denies tingling <JEREMY Watson - Last Filed: 10/14/22 17:38> Psychiatric: Psychiatric: Reports no additional psychiatric complaints <JEREMY Watson - Last Filed: 10/14/22 17:38> Endocrine: Endocrine: Reports no additional endocrine complaints <JEREMY Watson - Last Filed: 10/14/22 17:38> Hematologic/Lymphatic: Hematologic/Lymphatic: Reports no additional hematologic/lymphatic complaints <JEREMY Watson - Last Filed: 10/14/22 17:38> Allergic/Immunologic: Allergic/Immunologic: Reports no additional allergic/immunologic complaints <JEREMY Watson - Last Filed: 10/14/22 17:38> [facility] Past Medical History Attestation statement: The following information was validated with the patient. <JEREMY Watson - Last Filed: 10/14/22 17:38> Source: old records reviewed and nursing notes reviewed <JEREMY Watson - Last Filed: 10/14/22 17:38> Medical History: Medical History Asthma COPD (chronic obstructive pulmonary disease) Fibromyalgia HTN (hypertension) Hyperthyroidism Migraines Overactive bladder Seizure Sleep apnea Urinary retention <JEREMY Hurtado - Last Filed: 10/14/22 19:11> Surgical History: Surgical History Hx of section Hx of hysterectomy Hx of tubal ligation <JERMEY Hurtado - Last Filed: 10/14/22 19:11> Family History Family History: Family History Mother Diabetes HTN (hypertension) Heart failure Maternal Aunt Breast cancer Maternal Grandmother Breast cancer <JEREMY Hurtado - Last Filed: 10/14/22 19:11> Social History Social History: Social History Alcohol intake: never Patient Tobacco Use Status: Current everyday Tobacco user Cigarettes Per Day: 10 Years Smoked: 30 Substance Use Type: Prescription Drugs Advance Directives: Yes Advance Directives Information Provided: Yes Advance Directives on File: No <JEREMY Hurtado - Last Filed: 10/14/22 19:11> Physical Exam ED Vital Signs: Vital Signs - 24 hr 10/14/22 11:55 Temperature 97.6 F Pulse Rate 73 Respiratory Rate 18 Blood Pressure 163/76 H Pulse Oximetry 95 Oxygen Delivery Method Room Air BMI result Body Mass Index 38.4 <JEREMY Hurtado - Last Filed: 10/14/22 19:11> Vital Signs - 24 hr 10/14/22 11:55 Temperature 97.6 F Pulse Rate 73 Respiratory Rate 18 Blood Pressure 163/76 H Pulse Oximetry 95 Oxygen Delivery Method Room Air BMI result Body Mass Index 38.4 <JEREMY Watson - Last Filed: 10/14/22 17:38> Vital Signs - 24 hr 10/14/22 11:55 Temperature 97.6 F Pulse Rate 73 Respiratory Rate 18 Blood Pressure 163/76 H Pulse Oximetry 95 Oxygen Delivery Method Room Air BMI result Body Mass Index 38.4 <Madhav Alberto MD - Last Filed: 10/14/22 22:27> Const General: cooperative, no acute distress, alert and awake <JEREMY Watson - Last Filed: 10/14/22 17:38> Nutritional Appearance: well nourished <JEREMY Watson - Last Filed: 10/14/22 17:38> Orientation/consciousness: patient oriented x3 <JEREMY Watson - Last Filed: 10/14/22 17:38> Limitations: no limitations <JEREMY Watson Last Filed: 10/14/22 17:38> HENMT Head: Yes normal to inspection and Yes atraumatic <JEREMY Watson - Last Filed: 10/14/22 17:38> Ears: hearing grossly normal bilaterally and external ears normal <JEREMY Watson Last Filed: 10/14/22 17:38> General nose exam: Normal external nose present, no nasal discharge noted and no epistaxis <Andreina Duke AK - Last Filed: 10/14/22 17:38> Face and sinus: Yes normal facial exam, No abrasion and No laceration <Andreina Duke AK - Last Filed: 10/14/22 17:38> Mouth: Normal oral and palatal mucosa present, no drooling and no muffled voice <Andreina Duke AK - Last Filed: 10/14/22 17:38> Eyes General: appearance normal, both eyes and all related structures <Andreina Duke AK - Last Filed: 10/14/22 17:38> Periorbital: periorbital findings normal <Andreina Duke AK - Last Filed: 10/14/22 17:38> Eyelids: Yes eyelids normal <Andreina Duke AK - Last Filed: 10/14/22 17:38> Conjunctivae: conjunctivae normal <Andreina Duke AK - Last Filed: 10/14/22 17:38> Pupils: Equal, round and reactive pupils present <Andreina Caceresparesh AK - Last Filed: 10/14/22 17:38> EOM: EOMs intact bilaterally <Andreina Duke AK - Last Filed: 10/14/22 17:38> Neck Neck: Yes normal visual inspection, Yes full ROM and Yes no lymphadenopathy <Andreina Duke AK - Last Filed: 10/14/22 17:38> Chest Chest palpation & inspection: normal inspection of the chest <Andreina Duke [facility] Last Filed: 10/14/22 17:38> Resp Effort & Inspection: normal respiratory effort and able to speak in complete sentences <Andreina Caceresparesh AK - Last Filed: 10/14/22 17:38> Auscultation: clear to auscultation bilaterally <Andreina Caceresparesh AK - Last Filed: 10/14/22 17:38> Cardio Rate: regular rate <Andreina Caceresparesh AK - Last Filed: 10/14/22 17:38> Rhythm: regular rhythm <Andreina Duke AK - Last Filed: 10/14/22 17:38> GI Inspection: Yes normal to inspection <Andreinayoan Caceresparesh AK - Last Filed: 10/14/22 17:38> Palpation (GI): Soft to palpation, not firm, nontender and no guarding <Andreina Caceresparesh PA - Last Filed: 10/14/22 17:38> Neuro General: patient oriented x3 and moves all extremities <Andreina CaceresJEREMY yoder - Last Filed: 10/14/22 17:38> Cranial nerves: Yes Equal, round and reactive pupils present <Andreina Caceresparesh PA - Last Filed: 10/14/22 17:38> Cognition (Neuro): normal cognition <Andreina Caceresparesh PA - Last Filed: 10/14/22 17:38> Motor exam (neuro): 5/5 motor strength present throughout <Andreina Caceresparesh PA - Last Filed: 10/14/22 17:38> Sensory Exam: Normal double simultaneous stimulation for sensation <Andreina Caceresparesh PA - Last Filed: 10/14/22 17:38> Coordination: [id number] test normal <Andreina Caceresparesh PA - Last Filed: 10/14/22 17:38> Extrem General: Yes normal to inspection, Yes full ROM and Yes capillary refill normal <Andreina Caceresparesh PA - Last Filed: 10/14/22 17:38> Psych Appearance: grossly normal <Andreina Caceresparesh PA - Last Filed: 10/14/22 17:38> Mental Status: mental status grossly normal <Andreina CaceresJEREMY yoder - Last Filed: 10/14/22 17:38> Affect: normal affect <Andreina Caceresparesh PA - Last Filed: 10/14/22 17:38> Attitude: cooperative <Andreina DukeJEREMY yoder - Last Filed: 10/14/22 17:38> Thought process: Normal thought process present <Andreina Caceresparesh PA - Last Filed: 10/14/22 17:38> Thought content: Normal thought content present <Andreina CaceresJEREMY yoder - Last Filed: 10/14/22 17:38> Insight: Good insight present (Psych) <Andreina JEREMY Duke - Last Filed: 10/14/22 17:38> Course Course Course Narrative: RME: 61 yold female presents to the ED for another fall. patient has chest pain since fall and feels tight. patient has been seen here every week for a wall. patient states she keep falling due to trouble with lift chair and going down the stairs. Labs and EKG ordered. Case management discussion was brought up, but patient refused case management evaluation and would follow with PCP if medically cleared. <JEREMY Hurtado - Last Filed: 10/14/22 19:11> Medical Decision Making Medical Decision Making [facility] Narrative: Patient is a 61 year old assigned female at with a history of fibromyalgia and neuropathy presenting to the emergency department today with generalized body pain after a fall. Patient's physical exam was unremarkable. Patient's blood work was unremarkable. Patient's EKG was unremarkable. Patient's head, C-Spine, abdomen/pelvis, and chest CTs showed no acute process. Patient's C-Spine CT did show an asymmetrical thyroid gland however, the patient is aware and has surgery scheduled for removal. I explained my physical exam findings as well as all test results to the patient. I answered all questions asked by the patient . I stressed the importance of the patient taking her medication as prescribed. I stressed the importance of the patient following up with her primary care provider. I stressed the importance of the patient returning to the emergency department immediately if her symptoms were to worsen or if she were to develop any dizziness, shortness of breath, difficulty breathing, chest pain, blurry vision, loss of vision, nausea, vomiting, abdominal pain, fever, chills, back pain, or any other complaints. Patient verbalized agreement and understanding with this treatment plan and discharge. <JEREMY Watson - Last Filed: 10/14/22 17:38> Differential Diagnosis Differential Diagnoses: The differential diagnosis associated with the presentation includes <JEREMY Watson - Last Filed: 10/14/22 17:38> fall, body pain <JEREMY Watson - Last Filed: 10/14/22 17:38> Lab Data [facility] Lab Attestation statement: I reviewed the patient's lab results. <JEREMY Watson - Last Filed: 10/14/22 17:38> Result Diagrams: 10/14/22 12:22 10/14/22 12:22 <JEREMY Hurtado - Last Filed: 10/14/22 19:11> Labs: Lab Results 10/14/22 10/14/22 10/14/22 Range/Units 12:22 12:22 12:22 WBC 6.8 (4.8-10.8) X10*3/uL RBC 5.37 (4.20-5.50) X10*6/uL Hgb 15.1 (12.0-16.0) g/dl Hct 47.0 (37.0-47.0) % MCV 87.5 (80.0-98.0) fL MCH 28.1 (27.0-33.0) pg MCHC 32.1 (31.0-35.0) g/dl RDW 12.8 (11.0-16.0) % Plt Count 310 (160-400) X10*3/uL MPV 10.0 (9.4-12.3) fL Immature Gran % (Auto) 0.1 (0.0-0.4) % Neut % (Auto) 74.1 H (45-73) % Lymph % (Auto) 18.9 L (20-40) % [place] % (Auto) 4.1 (2-11) % Eos % (Auto) 1.6 (0-4) % Baso % (Auto) 1.2 (0-2) % Lymph # (Auto) 1.3 (1.2-4.9) X10*3/uL [place] # (Auto) 0.3 (0.1-1.2) X10*3/uL Eos # (Auto) 0.1 (0.0-0.4) X10*3/uL Baso # (Auto) 0.1 (0.0-0.2) X10*3/uL Abs Immat Gran (auto) 0.01 (0.00-0.03) X10*3/uL Absolute Neuts (auto) 5.0 (2.0-8.3) x10*3/uL Absolute Nucleated RBC 0.000 (0.0-0.012) X10*3/uL Nucleated RBC % (auto) 0.0 (0.0-0.2) /100WBC PT 10.8 (10.0-13.1) SEC INR 0.9 (0.9-1.1) APTT 38.4 H (26.0-36.4) SEC Sodium 140 (135-145) mmol/L Potassium 4.2 (3.3-5.1) mmol/L Chloride 106 (96-108) mmol/L Carbon Dioxide 25 (22-29) mmol/L Anion Gap 13 (12-20) BUN 10 (9-16) mg/dL Creatinine 0.67 (0.5-1.4) mg/dL Estim Creat Clear Calc 106.8 Estimated GFR > 60 Random Glucose 107 (60-115) mg/dL Calcium 10.0 D (8.4-10.2) mg/dL Total Bilirubin 0.3 (0.0-1.0) mg/dL AST 18 (5-31) U/L ALT 20 (0-31) U/L Alkaline Phosphatase 143 H (39-117) U/L Troponin I High Sens (<3.5-17.0) ng/L B-Natriuretic Peptide (<100) pg/mL Total Protein 7.3 (6.5-8.0) g/dL Albumin 4.6 (3.5-5.0) g/dL 10/14/22 10/14/22 Range/Units 12:22 12:22 WBC (4.8-10.8) X10*3/uL RBC (4.20-5.50) X10*6/uL Hgb (12.0-16.0) g/dl Hct (37.0-47.0) % MCV (80.0-98.0) fL MCH (27.0-33.0) pg MCHC (31.0-35.0) g/dl RDW (11.0-16.0) % Plt Count (160-400) X10*3/uL MPV (9.4-12.3) fL Immature Gran % (Auto) (0.0-0.4) % Neut % (Auto) (45-73) % Lymph % (Auto) (20-40) % [place] % (Auto) (2-11) % Eos % (Auto) (0-4) % Baso % (Auto) (0-2) % Lymph # (Auto) (1.2-4.9) X10*3/uL [place] # (Auto) (0.1-1.2) X10*3/uL Eos # (Auto) (0.0-0.4) X10*3/uL Baso # (Auto) (0.0-0.2) X10*3/uL Abs Immat Gran (auto) (0.00-0.03) X10*3/uL Absolute Neuts (auto) (2.0-8.3) x10*3/uL Absolute Nucleated RBC (0.0-0.012) X10*3/uL Nucleated RBC % (auto) (0.0-0.2) /100WBC PT (10.0-13.1) SEC INR (0.9-1.1) APTT (26.0-36.4) SEC Sodium (135-145) mmol/L Potassium (3.3-5.1) mmol/L Chloride (96-108) mmol/L Carbon Dioxide (22-29) mmol/L Anion Gap (12-20) BUN (9-16) mg/dL Creatinine (0.5-1.4) mg/dL Estim Creat Clear Calc Estimated GFR Random Glucose (60-115) mg/dL Calcium (8.4-10.2) mg/dL Total Bilirubin (0.0-1.0) mg/dL AST (5-31) U/L ALT (0-31) U/L Alkaline Phosphatase (39-117) U/L Troponin I High Sens < 3.5 (<3.5-17.0) ng/L B-Natriuretic Peptide 42 (<100) pg/mL Total Protein (6.5-8.0) g/dL Albumin (3.5-5.0) g/dL <JEREMY Hurtado - Last Filed: 10/14/22 19:11> Lab Results 10/14/22 10/14/22 10/14/22 Range/Units 12:22 12:22 12:22 WBC 6.8 (4.8-10.8) X10*3/uL RBC 5.37 (4.20-5.50) X10*6/uL Hgb 15.1 (12.0-16.0) g/dl Hct 47.0 (37.0-47.0) % MCV 87.5 (80.0-98.0) fL MCH 28.1 (27.0-33.0) pg MCHC 32.1 (31.0-35.0) g/dl RDW 12.8 (11.0-16.0) % Plt Count 310 (160-400) X10*3/uL MPV 10.0 (9.4-12.3) fL Immature Gran % (Auto) 0.1 (0.0-0.4) % Neut % (Auto) 74.1 H (45-73) % Lymph % (Auto) 18.9 L (20-40) % [place] % (Auto) 4.1 (2-11) % Eos % (Auto) 1.6 (0-4) % Baso % (Auto) 1.2 (0-2) % Lymph # (Auto) 1.3 (1.2-4.9) X10*3/uL [place] # (Auto) 0.3 (0.1-1.2) X10*3/uL Eos # (Auto) 0.1 (0.0-0.4) X10*3/uL Baso # (Auto) 0.1 (0.0-0.2) X10*3/uL Abs Immat Gran (auto) 0.01 (0.00-0.03) X10*3/uL Absolute Neuts (auto) 5.0 (2.0-8.3) x10*3/uL Absolute Nucleated RBC 0.000 (0.0-0.012) X10*3/uL Nucleated RBC % (auto) 0.0 (0.0-0.2) /100WBC PT 10.8 (10.0-13.1) SEC INR 0.9 (0.9-1.1) APTT 38.4 H (26.0-36.4) SEC Sodium 140 (135-145) mmol/L Potassium 4.2 (3.3-5.1) mmol/L Chloride 106 (96-108) mmol/L Carbon Dioxide 25 (22-29) mmol/L Anion Gap 13 (12-20) BUN 10 (9-16) mg/dL Creatinine 0.67 (0.5-1.4) mg/dL Estim Creat Clear Calc 106.8 Estimated GFR > 60 Random Glucose 107 (60-115) mg/dL Calcium 10.0 D (8.4-10.2) mg/dL Total Bilirubin 0.3 (0.0-1.0) mg/dL AST 18 (5-31) U/L ALT 20 (0-31) U/L Alkaline Phosphatase 143 H (39-117) U/L Troponin I High Sens (<3.5-17.0) ng/L B-Natriuretic Peptide (<100) pg/mL Total Protein 7.3 (6.5-8.0) g/dL Albumin 4.6 (3.5-5.0) g/dL 10/14/22 10/14/22 Range/Units 12:22 12:22 WBC (4.8-10.8) X10*3/uL RBC (4.20-5.50) X10*6/uL Hgb (12.0-16.0) g/dl Hct (37.0-47.0) % MCV (80.0-98.0) fL MCH (27.0-33.0) pg MCHC (31.0-35.0) g/dl RDW (11.0-16.0) % Plt Count (160-400) X10*3/uL MPV (9.4-12.3) fL Immature Gran % (Auto) (0.0-0.4) % Neut % (Auto) (45-73) % Lymph % (Auto) (20-40) % [place] % (Auto) (2-11) % Eos % (Auto) (0-4) % Baso % (Auto) (0-2) % Lymph # (Auto) (1.2-4.9) X10*3/uL [place] # (Auto) (0.1-1.2) X10*3/uL Eos # (Auto) (0.0-0.4) X10*3/uL Baso # (Auto) (0.0-0.2) X10*3/uL Abs Immat Gran (auto) (0.00-0.03) X10*3/uL Absolute Neuts (auto) (2.0-8.3) x10*3/uL Absolute Nucleated RBC (0.0-0.012) X10*3/uL Nucleated RBC % (auto) (0.0-0.2) /100WBC PT (10.0-13.1) SEC INR (0.9-1.1) APTT (26.0-36.4) SEC Sodium (135-145) mmol/L Potassium (3.3-5.1) mmol/L Chloride (96-108) mmol/L Carbon Dioxide (22-29) mmol/L Anion Gap (12-20) BUN (9-16) mg/dL Creatinine (0.5-1.4) mg/dL Estim Creat Clear Calc Estimated GFR Random Glucose (60-115) mg/dL Calcium (8.4-10.2) mg/dL Total Bilirubin (0.0-1.0) mg/dL AST (5-31) U/L ALT (0-31) U/L Alkaline Phosphatase (39-117) U/L Troponin I High Sens < 3.5 (<3.5-17.0) ng/L B-Natriuretic Peptide 42 (<100) pg/mL Total Protein (6.5-8.0) g/dL Albumin (3.5-5.0) g/dL <JEREMY Watson - Last Filed: 10/14/22 17:38> Lab Results 10/14/22 10/14/22 10/14/22 Range/Units 12:22 12:22 12:22 WBC 6.8 (4.8-10.8) X10*3/uL RBC 5.37 (4.20-5.50) X10*6/uL Hgb 15.1 (12.0-16.0) g/dl Hct 47.0 (37.0-47.0) % MCV 87.5 (80.0-98.0) fL MCH 28.1 (27.0-33.0) pg MCHC 32.1 (31.0-35.0) g/dl RDW 12.8 (11.0-16.0) % Plt Count 310 (160-400) X10*3/uL MPV 10.0 (9.4-12.3) fL Immature Gran % (Auto) 0.1 (0.0-0.4) % Neut % (Auto) 74.1 H (45-73) % Lymph % (Auto) 18.9 L (20-40) % [place] % (Auto) 4.1 (2-11) % Eos % (Auto) 1.6 (0-4) % Baso % (Auto) 1.2 (0-2) % Lymph # (Auto) 1.3 (1.2-4.9) X10*3/uL [place] # (Auto) 0.3 (0.1-1.2) X10*3/uL Eos # (Auto) 0.1 (0.0-0.4) X10*3/uL Baso # (Auto) 0.1 (0.0-0.2) X10*3/uL Abs Immat Gran (auto) 0.01 (0.00-0.03) X10*3/uL Absolute Neuts (auto) 5.0 (2.0-8.3) x10*3/uL Absolute Nucleated RBC 0.000 (0.0-0.012) X10*3/uL Nucleated RBC % (auto) 0.0 (0.0-0.2) /100WBC PT 10.8 (10.0-13.1) SEC INR 0.9 (0.9-1.1) APTT 38.4 H (26.0-36.4) SEC Sodium 140 (135-145) mmol/L Potassium 4.2 (3.3-5.1) mmol/L Chloride 106 (96-108) mmol/L Carbon Dioxide 25 (22-29) mmol/L Anion Gap 13 (12-20) BUN 10 (9-16) mg/dL Creatinine 0.67 (0.5-1.4) mg/dL Estim Creat Clear Calc 106.8 Estimated GFR > 60 Random Glucose 107 (60-115) mg/dL Calcium 10.0 D (8.4-10.2) mg/dL Total Bilirubin 0.3 (0.0-1.0) mg/dL AST 18 (5-31) U/L ALT 20 (0-31) U/L Alkaline Phosphatase 143 H (39-117) U/L Troponin I High Sens (<3.5-17.0) ng/L B-Natriuretic Peptide (<100) pg/mL Total Protein 7.3 (6.5-8.0) g/dL Albumin 4.6 (3.5-5.0) g/dL 10/14/22 10/14/22 Range/Units 12:22 12:22 WBC (4.8-10.8) X10*3/uL RBC (4.20-5.50) X10*6/uL Hgb (12.0-16.0) g/dl Hct (37.0-47.0) % MCV (80.0-98.0) fL MCH (27.0-33.0) pg MCHC (31.0-35.0) g/dl RDW (11.0-16.0) % Plt Count (160-400) X10*3/uL MPV (9.4-12.3) fL Immature Gran % (Auto) (0.0-0.4) % Neut % (Auto) (45-73) % Lymph % (Auto) (20-40) % [place] % (Auto) (2-11) % Eos % (Auto) (0-4) % Baso % (Auto) (0-2) % Lymph # (Auto) (1.2-4.9) X10*3/uL [place] # (Auto) (0.1-1.2) X10*3/uL Eos # (Auto) (0.0-0.4) X10*3/uL Baso # (Auto) (0.0-0.2) X10*3/uL Abs Immat Gran (auto) (0.00-0.03) X10*3/uL Absolute Neuts (auto) (2.0-8.3) x10*3/uL Absolute Nucleated RBC (0.0-0.012) X10*3/uL Nucleated RBC % (auto) (0.0-0.2) /100WBC PT (10.0-13.1) SEC INR (0.9-1.1) APTT (26.0-36.4) SEC Sodium (135-145) mmol/L Potassium (3.3-5.1) mmol/L Chloride (96-108) mmol/L Carbon Dioxide (22-29) mmol/L Anion Gap (12-20) BUN (9-16) mg/dL Creatinine (0.5-1.4) mg/dL Estim Creat Clear Calc Estimated GFR Random Glucose (60-115) mg/dL Calcium (8.4-10.2) mg/dL Total Bilirubin (0.0-1.0) mg/dL AST (5-31) U/L ALT (0-31) U/L Alkaline Phosphatase (39-117) U/L Troponin I High Sens < 3.5 (<3.5-17.0) ng/L B-Natriuretic Peptide 42 (<100) pg/mL Total Protein (6.5-8.0) g/dL Albumin (3.5-5.0) g/dL <Madhav Alberto MD - Last Filed: 10/14/22 22:27> Independent Interpretation I performed an independent interpretation of an: EKG <JEREMY Watson - Last Filed: 10/14/22 17:38> Interpretation: Vent. Rate: 066 BPM ? ? Atrial Rate: 066 BPM P-R Int: 154 ms? QRS Dur: 084 ms QT Int: 422 ms ? ? ? P-R-T Axes: 020 008 049 degrees QTc Int: 442 ms ? Normal sinus rhythm Normal ECG When compared with ECG of 08-OCT-2022 17:31, No significant change was found ? Electronically Signed By:ABDIAS KAPLAN MD Dictated By: Abdias Kaplan MD Signed By: Electronically signed by Abdias Kaplan MD 10/14/22 1427 <JEREMY Watson - Last Filed: 10/14/22 17:38> Radiology Impression Radiologist Impression: My interpretation is in agreement with the radiologist's impression of these imaging studies. EXAMINATION: CT BRAIN AND CT CERVICAL SPINE WITHOUT CONTRAST. CLINICAL INFORMATION: Fall.? COMPARISON: CT brain and CT cervical spine without contrast 10/08/2022. TECHNIQUE: 5 mm thin axial and reformatted 2 mm thin sagittal and coronal images of brain were obtained without contrast. 3 mm thin axial and reformatted 2 mm thin sagittal coronal images of cervical spine were obtained without contrast. This CT examination was performed using dose optimization technique as appropriate, variously including the following: Automated exposure control Adjustment of MA and/or KV according to patient size(this includes techniques or standardized protocols for targeted exams where dose is matched to indication/reason for exam;? extremities or head. Use of iterative reconstruction techniques. ? FINDINGS: Brain: There is no acute intra-axial, extra-axial bleed, masses or midline shift. Both lateral ventricles are symmetrical in size and configuration without enlargement. The lateral ventricles are symmetrical in size and configuration without enlargement. The baker to white matter difference is maintained normal. Bone windows reveal no calvarial abnormality. There is no scalp soft tissue swelling. Bilateral paranasal sinuses and mastoid air cells are well-aerated. Cervical spine: There is mild straightening of cervical lordosis. The vertebral heights, alignment and disc heights are normal. No visible acute fracture, dislocation or subluxation seen. The craniovertebral junction and the C1-C2 alignment is normal. The prevertebral and paravertebral soft tissues are normal. The airway is widely patent. There is mild asymmetric enlargement left thyroid gland. The lung apices are clear. CT/CT head/brain wo IV con IMPRESSION: 1.? No acute intracranial process seen. 2.? There is no acute fracture, dislocation or subluxation in cervical spine. 3.? Asymmetrically enlarged left thyroid lobe. Dictated By: Wilfredo Bishop MD Signed By: Electronically signed by Wilfredo Bishop MD 10/14/22 1537 EXAMINATION: CT CHEST, ABDOMEN AND PELVIS WITHOUT CONTRAST CLINICAL INFORMATION: Fall. Rib fracture.? COMPARISON: CT chest 09/24/2022. CT abdomen and pelvis 11/13/2021? TECHNIQUE: Multidetector volumetric CT imaging of the chest, abdomen and pelvis was obtained without IV contrast. Coronal and sagittal reformatted images are performed at CT scanner [This CT examination was performed using dose optimization techniques as appropriate, variously including the following: *Automated exposure control *Adjustment of mA and/or kV according to patient size (this includes techniques or standardized protocols for targeted exams where dose is matched to indication/reason for exam; i.e. extremities or head) *Use of iterative reconstruction technique] DLP: 627+1306 mGy-cm. FINDINGS: Artifact from imaging from the patient's arms at side CT CHEST: Lungs: Mild centrilobular emphysematous change of lungs. No acute airspace disease. Linear scarring atelectasis at lung bases. No suspicious lung nodules. There are few stable scattered micronodules unchanged since prior exam.? Mediastinum: The mediastinum is normal.? Pleura: There is no pleural effusion. No pleural mass or thickening.? Axilla: No lymphadenopathy.? CT ABDOMEN AND PELVIS: Liver, Gallbladder and Biliary Tree: Stable hepatic cyst left lobe of liver. There is a 1.6 cm hypoattenuating lesion and an adjacent 0.5 cm hypoattenuating lesion axial image 15/41 series 33. These are unchanged since prior studies likely small hepatic cysts. No suspicious liver lesions. No intrahepatic bile duct dilatation. The gallbladder is unremarkable with no evidence of radiopaque gallstones, gallbladder wall thickening, or obvious pericholecystic inflammatory changes.? Pancreas: No acute change of the pancreas. No mass. No pancreatic duct dilatation.? Spleen: Spleen normal in size and contour. No focal lesion.? Adrenal Glands: Adrenal glands are normal in size. No focal mass.? Kidneys and Ureters: The kidneys are normal in size, shape, and attenuation. No hydronephrosis, hydroureter, or calculi seen. No perinephric stranding. ? Bladder: Unremarkable.? Gastrointestinal Tract: There are scattered diverticula of the sigmoid colon. There is no diverticulitis. There is no bowel wall thickening /edema. There is no bowel obstruction. There is a moderate volume of stool in the colon. The appendix is normal . The small bowel loops are unremarkable. The stomach is normal. There is no hiatal hernia.? Mesentery: No focal inflammation. No free fluid. No free air. Abdominal Wall: No significant hernia is appreciated.? Lymph Nodes: No significant lymphadenopathy. Vascular: Mild scattered vascular calcification of the aorta. No aneurysm. Pelvic Viscera: Status post hysterectomy. No pelvic mass or inflammation.? Osseous Structures: No acute osseous abnormality. There are healing fractures of the anterior right seventh and eighth ribs. Multilevel degenerative spondylosis spine. Marked disc height narrowing and endplate spur and vacuum disc phenomenon L3-L4. Bilateral spondylolysis of the L5 pars interarticularis. No significant anterolisthesis. CT/CT abdomen pelvis wo IV con IMPRESSION: No acute abnormality CT scan chest, abdomen or pelvis. Dictated By: Toby Higginbotham MD Signed By: Electronically signed by Toby Higginbotham MD 10/14/22 9716 <JEREMY Watson - Last Filed: 10/14/22 17:38> Attestation Attending Attestation: I reviewed GAME TECHNICIAN/PA/Resident note, assessment and plan. I agree with the documentation, assessment and plan unless otherwise stated. <Madhav Alberto MD - Last Filed: 10/14/22 22:27> Discharge Plan Discharge Clinical Impression: Fall <JEREMY Hurtado - Last Filed: 10/14/22 19:11> Patient Disposition: Home, Self-Care <JEREMY Hurtado - Last Filed: 10/14/22 19:11> Instructions: Fall Prevention (ED) <JEREMY Hurtado - Last Filed: 10/14/22 19:11> Additional Instructions: Follow up with your primary care provider. Return to the emergency department immediately if your symptoms worsen or if you develop any dizziness, shortness of breath, difficulty breathing, chest pain, blurry vision, loss of vision, nausea, vomiting, abdominal pain, fever, chills, back pain, or any other complaints. <JEREMY Hurtado - Last Filed: 10/14/22 19:11> Prescriptions: No Action nitrofurantoin monohyd/m-cryst [Macrobid] 100 mg capsule 100 mg PO BID 10 Days Qty: 20 0RF Rx Instructions: must administer with a meal/food cyclobenzaprine 10 mg tablet 10 mg PO TID PRN (Reason: pain) Qty: 10 0RF lisinopril 10 mg tablet 10 mg PO DAILY Qty: 30 0RF prednisone 20 mg tablet 40 mg PO DAILY Qty: 10 0RF ondansetron HCl [Zofran] 4 mg tablet 4 mg PO Q6H PRN (Reason: nausea and vomiting) Qty: 14 0RF loperamide [Anti-Diarrheal (loperamide)] 2 mg tablet 2 mg PO Q4H PRN (Reason: loose stool) Qty: 14 0RF Rx Instructions: administer after each loose stool until symptoms controlled; do not exceed 8 mg per 24 hrs Darien-24 400 mg capsule,extended release 24hr 400 mg PO DAILY meloxicam 15 mg tablet 15 mg PO DAILY Spiriva with HandiHaler 18 mcg capsule, w/inhalation device 1 cap inhalation DAILY dicyclomine 10 mg capsule 10 mg PO QID hydrocortisone 10 mg tablet 0 mg PO folic acid 1 mg tablet 1 mg PO DAILY omeprazole 20 mg capsule,delayed release(DR/EC) 40 mg PO DAILY docusate sodium 100 mg capsule 100 mg PO BEDTIME PRN levothyroxine 100 mcg tablet 100 mcg PO DAILY topiramate 25 mg tablet 25 mg PO clonazepam 1 mg tablet 1 mg PO BID PRN (Reason: panic attack) albuterol sulfate 2.5 mg /3 mL (0.083 %) solution for nebulization inhalation TID nicotine 14 mg/24 hr patch 24 hour 1 patch topical DAILY oxycodone 15 mg tablet 15 mg PO Q6H PRN albuterol sulfate 90 mcg/actuation HFA aerosol inhaler 2 puff inhalation Q6H PRN budesonide-formoterol [Symbicort] 160-4.5 mcg/actuation HFA aerosol inhaler 2 puff inhalation BID nitroglycerin 0.3 mg tablet, sublingual 0.3 mg sublingual Q5M PRN Rx Instructions: do not exceed 3 doses per episode levothyroxine 75 mcg capsule 75 mcg PO DAILY montelukast [Singulair] 10 mg tablet 10 mg PO DAILY pregabalin [Lyrica] 300 mg capsule 300 mg PO BID phenytoin sodium extended [Dilantin Extended] 100 mg capsule 100 mg PO BID isosorbide mononitrate 30 mg tablet extended release 24 hr 30 mg PO DAILY Rx Instructions: 2 tabs daily hydrochlorothiazide 12.5 mg tablet 12.5 mg PO DAILY furosemide [Lasix] 20 mg tablet 10 mg PO QAM diclofenac sodium 1 % gel 2 g topical QID Rx Instructions: apply to single elbow, wrist or hand; for hand includes palm/fingers/back of hand lidocaine 5 % adhesive patch,medicated 3 patch topical DAILY Rx Instructions: leave on most painful area for up to 12 hrs simvastatin 20 mg tablet 20 mg PO DAILY aspirin 81 mg tablet,delayed release (DR/EC) 81 mg PO DAILY meclizine 25 mg tablet 25 mg PO DAILY phenazopyridine [Pyridium] 100 mg tablet 100 mg PO TID PRN (Reason: pain) Qty: 10 0RF Gemtesa 75 mg tablet 75 mg PO DAILY 30 Days Qty: 30 0RF <JEREMY Hurtado - Last Filed: 10/14/22 19:11> Referrals: Name,MD Tone [Primary Care Provider] - <JEREMY Hurtado - Last Filed: 10/14/22 19:11> Interventions: ED Discharge Assessment Last Done: 10/14/22 16:22 <JEREMY Hurtado - Last Filed: 10/14/22 19:11> Discharge Date/Time: 10/14/22 16:22 <JEREMY Hurtado - Last Filed: 10/14/22 19:11> Print Language: Maltese <JEREMY Hurtado - Last Filed: 10/14/22 19:11>
--- NOTE | 2022-10-14 11:57 | ECG_ITS ---
Test Reason : FALL/CP Blood Pressure : / mmHG Vent. Rate : 066 BPM Atrial Rate : 066 BPM P-R Int : 154 ms QRS Dur : 084 ms QT Int : 422 ms P-R-T Axes : 020 008 049 degrees QTc Int : 442 ms Normal sinus rhythm Normal ECG When compared with ECG of 08-OCT-2022 17:31, No significant change was found Referred By: Richard Hunter Electronically Signed By:VANIA KAPLAN MD
[2022-10-14 12:33] LABS: MANUAL DIFF FLAG NO
[2022-10-14 12:35] LABS: Basophils Absolute Auto 0.1 X10*3/uL (0.0-0.2); Basophils Percent Auto 1.2 % (0-2); Eosinophils Absolute Auto 0.1 X10*3/uL (0.0-0.4); Eosinophils Percent Auto 1.6 % (0-4); Hemoglobin 15.1 g/dl (12.0-16.0); Imm Gran Abs Auto 0.01 X10*3/uL (0.00-0.03); Imm Gran Pct Auto 0.1 % (0.0-0.4); Lymphocytes Absolute Auto 1.3 X10*3/uL (1.2-4.9); Lymphocytes Percent Auto 18.9 % (20-40); Mean Corpuscular HGB Conc 32.1 g/dl (31.0-35.0); Mean Corpuscular Hemoglobin 28.1 pg (27.0-33.0); Mean Corpuscular Volume 87.5 fL (80.0-98.0); Monocytes Absolute Auto 0.3 X10*3/uL (0.1-1.2); Monocytes Percent Auto 4.1 % (2-11); Neutrophils Percent Auto 74.1 % (45-73); Platelet Count 310 X10*3/uL (160-400); Red Blood Count 5.37 X10*6/uL (4.20-5.50); Red Cell Distribution Width 12.8 % (11.0-16.0); White Blood Count 6.8 X10*3/uL (4.8-10.8)
[2022-10-14 12:44] LABS: INTERNATIONAL NORM RATIO 0.9 (0.9-1.1); Prothrombin Time 10.8 SEC (10.0-13.1)
[2022-10-14 12:46] LABS: Partial Thromboplastin Time 38.4 SEC (26.0-36.4)
[2022-10-14 12:51] LABS: Alanine Aminotransferase 20 U/L (0-31); Albumin Level 4.6 g/dL (3.5-5.0); Alkaline Phosphatase 143 U/L (39-117); Anion Gap 13 (12-20); Aspartate Amino Transferase 18 U/L (5-31); Bilirubin Total 0.3 mg/dL (0.0-1.0); Blood Urea Nitrogen 10 mg/dL (9-16); Carbon Dioxide 25 mmol/L (22-29); Chloride 106 mmol/L (96-108); Creatinine Clr Calc Pharmacy 106.8; Estimated Glomerular Filt Rate > 60; Glucose Random 107 mg/dL (60-115); Potassium 4.2 mmol/L (3.3-5.1); Sodium 140 mmol/L (135-145); Total Protein 7.3 g/dL (6.5-8.0)
[2022-10-14 12:56] LABS: B Type Natriuretic Peptide 42 pg/mL (<100)
[2022-10-14 12:58] LABS: Troponin-I High Sensitivity < 3.5 ng/L (<3.5-17.0)
--- NOTE | 2022-10-14 13:34 | MHC.EDTECH ---
covering techs break in triage. EKG completed at this time.
== END 2022-10-14 16:22 | disposition home or self-care (01) ==
PROVIDERS: Physician Assistant; Emergency Provider Emergency Medicine; PCP Internal Medicine Geriatric Medicine
DX: R52 Pain, unspecified (principal); R29.6 Repeated falls; Z91.81 History of falling; I10 Essential (primary) hypertension; M79.7 Fibromyalgia; Z79.899 Other long term (current) drug therapy
CPT/HCPCS: 36415; 70450; 71250; 72125; 74176; 80053; 83880; 84484; 85025; 85610; 85730; 93005; 99283; 99284

== ENCOUNTER → 2022-11-26 15:27 | Outpatient (BNVA) | payer MEDICAID, SELFPAY | PROVIDERS: PCP Internal Medicine Geriatric Medicine; Visit Provider Nurse Practitioner Family ==

== ENCOUNTER 2023-01-14 13:18 | Outpatient (REF) | payer MEDICAID, SELFPAY ==
--- NOTE | ~2023-01-14 | US_ITS ---
EXAMINATION: US ABDOMEN COMPLETE CLINICAL INFORMATION: Right upper quadrant pain. COMPARISON: CT abdomen and pelvis 10/14/2022. Ultrasound abdomen complete 05/27/2019. TECHNIQUE: Real-time imaging of the abdominal viscera. FINDINGS: PANCREAS: Normal. ABDOMINAL AORTA: The proximal, mid, and distal segments are normal in caliber. INFERIOR VENA CAVA: Visualized portions are normal. LIVER: The liver is normal in size. The liver contour is normal. Parenchymal echogenicity is normal. 3 small cysts in the left lobe largest measuring 1.6 cm with septation. There is no intrahepatic biliary duct dilatation seen. GALLBLADDER: The gallbladder is normal in size. There is mild gallbladder wall thickening and ring down artifact suggestive of adenomyomatosis of the gallbladder wall. No gallstones. COMMON BILE DUCT: Normal in caliber measuring 0.3 cm in diameter. RIGHT KIDNEY: Normal. No hydronephrosis. No renal calculi or focal parenchymal lesions. The kidney measures 11.3 cm in maximum dimension. LEFT KIDNEY: Small cyst in the upper pole measuring 7 mm. No imaging follow-up recommended. No hydronephrosis or renal calculi. The kidney measures 11.7 cm in maximum dimension. SPLEEN: Normal. The spleen measures 9.2 cm in maximum dimension. FREE FLUID: None. US/US abdomen complete IMPRESSION: Small liver and left renal cysts. Adenomyomatosis of the gallbladder wall. Findings are similar to previous exams.
== END 2023-01-14 13:19 | disposition home or self-care (01) ==
LOC: HO.US 13:18
PROVIDERS: PCP Internal Medicine Geriatric Medicine; Visit Provider Internal Medicine Geriatric Medicine
DX: R10.11 Right upper quadrant pain (principal)
CPT/HCPCS: 76700

== ENCOUNTER 2023-02-13 12:49 | Outpatient (REF) | payer MEDICAID, SELFPAY ==
--- NOTE | ~2023-02-13 | US_ITS ---
EXAMINATION: US VENOUS ULTRASOUND WITH DOPPLER LOWER EXTREMITY, RIGHT CLINICAL INFORMATION: Right leg swelling evaluate for DVT COMPARISON: Ultrasound bilateral lower extremity venous Doppler from 04/28/2015 TECHNIQUE: Ultrasound of the deep veins is performed from the hip to the calf with compression sonography and color and pulse Doppler assessment. Spectral analysis with color-flow imaging is performed. FINDINGS: There is normal venous compression and respiratory variation and augmented flow. The visualized common femoral vein, superficial femoral vein, profunda femoral vein, popliteal vein, and the trifurcation region shows no evidence of deep venous thrombosis. There is no significant popliteal fossa cyst. Right greater saphenous vein not well visualized and per patient has history of vein of procedure. If the patient's symptoms persist, followup ultrasound in 5 days 7 days might be of value to exclude proximal propagation from a non-visualized calf vein. US/US venous duplex LE RT IMPRESSION: 1. No DVT demonstrated in the right lower extremity. 2. Right greater saphenous vein not well visualized and per patient has history of vein of procedure.
== END 2023-02-13 12:50 | disposition home or self-care (01) ==
LOC: HO.US 12:49
PROVIDERS: PCP Internal Medicine Geriatric Medicine; Visit Provider Internal Medicine Geriatric Medicine
DX: R60.0 Localized edema (principal)
CPT/HCPCS: 93971

== ENCOUNTER 2023-04-15 19:06 | Emergency (ER) | payer MEDICAID, SELFPAY ==
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
[2023-04-15 19:46] VITALS: BP 135/78; PULSE 76; RESP 18; TEMP 36.4; O2SAT 96; BMI 38.4
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
[2023-04-15] MEDS: Morphine Sulfate Immed Release 15 MG TABLET PO (22:02)
[2023-04-15] MEDS: Lidocaine 4 % Patch ADH..PATCH 1 PATCH TRANSDERMA (22:02)
[2023-04-15] MEDS: Ondansetron ODT 4 MG TAB.RAPDIS TRANSLINGU (22:02)
[2023-04-15 22:06] VITALS: BP 151/90; PULSE 68; RESP 20; O2SAT 96
== END 2023-04-15 22:18 | disposition home or self-care (01) ==
PROVIDERS: Emergency Provider Emergency Medicine; PCP Internal Medicine Geriatric Medicine
DX: S46.912A Strain of unspecified muscle, fascia and tendon at shoulder and upper arm level, left arm, initial encounter (principal); F17.210 Nicotine dependence, cigarettes, uncomplicated; W18.00XA Striking against unspecified object with subsequent fall, initial encounter; Y93.9 Activity, unspecified; Y92.9 Unspecified place or not applicable; Y99.9 Unspecified external cause status; Z71.6 Tobacco abuse counseling; Z79.899 Other long term (current) drug therapy
CPT/HCPCS: 73030; 99283; 99284

== ENCOUNTER 2023-04-28 15:36 | Outpatient (REF) | payer MEDICAID, SELFPAY ==
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
== END 2023-04-28 15:37 | disposition home or self-care (01) ==
LOC: HO.HHCX 15:36
PROVIDERS: Visit Provider Internal Medicine Geriatric Medicine
DX: M54.2 Cervicalgia (principal)
CPT/HCPCS: 72040

== ENCOUNTER 2023-05-13 11:56 | Outpatient (REF) | payer MEDICAID, SELFPAY ==
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
== END 2023-05-13 11:57 | disposition home or self-care (01) ==
LOC: HO.CT 11:56
PROVIDERS: Visit Provider Internal Medicine Geriatric Medicine
DX: G44.319 Acute post-traumatic headache, not intractable (principal)
CPT/HCPCS: 70450

== ENCOUNTER 2023-08-06 15:26 | Emergency (ER) | payer MEDICAID, SELFPAY ==
--- NOTE | 2023-08-06 | ECG_ITS ---
Test Reason : CHEST PAIN Blood Pressure : / mmHG Vent. Rate : 068 BPM Atrial Rate : 068 BPM P-R Int : 156 ms QRS Dur : 084 ms QT Int : 416 ms P-R-T Axes : 028 010 067 degrees QTc Int : 442 ms Normal sinus rhythm RSR' or QR pattern in V1 suggests right ventricular conduction delay Otherwise normal ECG When compared with ECG of 14-OCT-2022 13:32, No significant change was found Referred By: Generic ED Physician Electronically Signed By:GRACIA STRONG MD
--- NOTE | ~2023-08-06 | XR_ITS ---
EXAMINATION: XR CHEST CLINICAL INFORMATION: Chest pain. COMPARISON: 11/12/2021 TECHNIQUE: 2 views of the chest were obtained. FINDINGS: Lung volumes are low. The cardiomediastinal silhouette is stable. There is mild diffuse increased markings. There is no focal lung consolidation or pleural effusion. The bony structures and soft tissues are unremarkable. XR/XR chest 2V IMPRESSION: Low lung volumes limits evaluation. Mild diffuse increased markings felt to be chronic and/or technical as similar findings were seen previously. There is no focal lung consolidation or pleural effusion.
[2023-08-06 16:07] LABS: MANUAL DIFF FLAG NO
[2023-08-06 16:11] LABS: Basophils Absolute Auto 0.1 X10*3/uL (0.0-0.2); Basophils Percent Auto 0.8 % (0-2); Eosinophils Absolute Auto 0.1 X10*3/uL (0.0-0.4); Eosinophils Percent Auto 1.1 % (0-4); Hematocrit 44.4 % (37.0-47.0); Hemoglobin 14.5 g/dl (12.0-16.0); Imm Gran Abs Auto 0.04 X10*3/uL (0.00-0.03); Imm Gran Pct Auto 0.5 % (0.0-0.4); Lymphocytes Absolute Auto 1.7 X10*3/uL (1.2-4.9); Mean Corpuscular HGB Conc 32.7 g/dl (31.0-35.0); Mean Corpuscular Volume 88.8 fL (80.0-98.0); Mean Platelet Volume 10.4 fL (9.4-12.3); Monocytes Absolute Auto 0.5 X10*3/uL (0.1-1.2); Monocytes Percent Auto 6.1 % (2-11); Neutrophils Absolute Auto 5.1 x10*3/uL (2.0-8.3); Neutrophils Percent Auto 68.5 % (45-73); Platelet Count 271 X10*3/uL (160-400); White Blood Count 7.5 X10*3/uL (4.8-10.8)
[2023-08-06 16:25] LABS: Alanine Aminotransferase 21 U/L (0-31); Albumin Level 4.4 g/dL (3.5-5.0); Alkaline Phosphatase 112 U/L (39-117); Anion Gap 12 (12-20); Aspartate Amino Transferase 20 U/L (5-31); Bilirubin Total 0.3 mg/dL (0.0-1.0); Blood Urea Nitrogen 9 mg/dL (9-16); Calcium 9.7 mg/dL (8.4-10.2); Carbon Dioxide 26 mmol/L (22-29); Chloride 106 mmol/L (96-108); Estimated Glomerular Filt Rate > 60; Glucose Random 116 mg/dL (60-115); Potassium 3.9 mmol/L (3.3-5.1); Sodium 140 mmol/L (135-145); Total Protein 7.4 g/dL (6.5-8.0)
[2023-08-06 16:34] LABS: Troponin-I High Sensitivity < 2.7 ng/L (<3.5-17.0)
[2023-08-06 16:42] VITALS: BP 122/70; PULSE 65; RESP 18; TEMP 36.1; O2SAT 96; BMI 38.4
--- NOTE | 2023-08-06 16:45 | ED_ITS ---
HPI - General Adult General Chief complaint: Weakness Stated complaint: chest pain, headache, weakness Time Seen by Provider: 08/07/23 01:03 Source: patient Mode of arrival: ambulatory History of Present Illness HPI narrative: This 62-year-old female who states that she is had increasing weakness for the past 3 weeks and reports sweating and dysuria with concerns for possible UTI. Patient also describes decrease appetite and intermittent nausea. The patient adamantly declines any suggestion or discussion regarding short-term rehab as she does endorse that she had a recent thyroid surgery at [facility] approximately 3 weeks ago. In the triage note she reports she also had hemorrhoids removed 3 weeks ago. Related Data Home Medications Medication Instructions Recorded Confirmed albuterol sulfate 90 mcg/actuation 2 puff inhalation Q6H PRN 02/28/21 11/26/22 aerosol inhaler aspirin 81 mg tablet,delayed 81 mg PO DAILY 02/28/21 11/26/22 release budesonide-formoterol HFA 160 2 puff inhalation BID 02/28/21 11/26/22 mcg-4.5 mcg/actuation aerosol inhaler (Symbicort) diclofenac sodium 1 % topical gel 2 g topical QID 02/28/21 11/26/22 furosemide 20 mg tablet (Lasix) 10 mg PO QAM 02/28/21 11/26/22 hydrochlorothiazide 12.5 mg tablet 12.5 mg PO DAILY 02/28/21 11/26/22 isosorbide mononitrate 30 mg 30 mg PO DAILY 02/28/21 11/26/22 tablet,extended release 24 hr levothyroxine 75 mcg capsule 75 mcg PO DAILY 02/28/21 11/26/22 lidocaine 5 % topical patch 3 patch topical DAILY 02/28/21 11/26/22 meclizine 25 mg tablet 25 mg PO DAILY 02/28/21 11/26/22 montelukast 10 mg tablet 10 mg PO DAILY 02/28/21 11/26/22 (Singulair) nitroglycerin 0.3 mg sublingual 0.3 mg sublingual Q5M PRN 02/28/21 11/26/22 tablet pregabalin 300 mg capsule (Lyrica) 300 mg PO BID 02/28/21 11/26/22 simvastatin 20 mg tablet 20 mg PO DAILY 02/28/21 11/26/22 albuterol sulfate 2.5 mg/3 mL mg inhalation TID 05/24/21 11/26/22 (0.083 %) solution for nebulization clonazepam 1 mg tablet 1 mg PO BID PRN panic attack 05/24/21 11/26/22 dicyclomine 10 mg capsule 10 mg PO QID 05/24/21 11/26/22 docusate sodium 100 mg capsule 100 mg PO BEDTIME PRN 05/24/21 11/26/22 folic acid 1 mg tablet 1 mg PO DAILY 05/24/21 11/26/22 levothyroxine 100 mcg tablet 100 mcg PO DAILY 05/24/21 11/26/22 meloxicam 15 mg tablet 15 mg PO DAILY 05/24/21 11/26/22 nicotine 14 mg/24 hr daily 1 patch topical DAILY 05/24/21 11/26/22 transdermal patch omeprazole 20 mg capsule,delayed 40 mg PO DAILY 05/24/21 11/26/22 release theophylline 400 mg 400 mg PO DAILY 05/24/21 11/26/22 capsule,extended release 24 hr (Darien-24) tiotropium bromide 18 mcg capsule 1 cap inhalation DAILY 05/24/21 11/26/22 with inhalation device (Spiriva with HandiHaler) topiramate 25 mg tablet 25 mg PO 05/24/21 11/26/22 Previous Rx's Medication Instructions Recorded cyclobenzaprine 10 mg tablet 10 mg PO TID PRN pain #10 tabs 06/22/20 lisinopril 10 mg tablet 10 mg PO DAILY #30 tabs 07/24/20 loperamide 2 mg tablet 2 mg PO Q4H PRN loose stool #14 07/09/21 (Anti-Diarrheal (loperamide)) tabs vibegron 75 mg tablet (Gemtesa) 75 mg PO DAILY 90 days #90 tabs 01/02/23 Allergies Allergy/AdvReac Type Severity Reaction Status Date / Time Penicillins [PENICILLINS] Allergy Severe HIVES Verified 04/15/23 19:53 amoxicillin [AMOXICILLIN] Allergy Intermediate HIVES Verified 04/15/23 19:53 ciprofloxacin [From Cipro] Allergy Intermediate Hives Verified 04/15/23 19:53 acetaminophen [From Tylox] Allergy Unknown Rash, Verified 04/15/23 19:53 Nausea and Vomiting ibuprofen [From Motrin] Allergy Unknown Gastrointestinal Verified 04/15/23 19:53 Upset latex [LATEX] Allergy Unknown RASH Verified 04/15/23 19:53 penicillin V Allergy Unknown rash Verified 04/15/23 19:53 Review of Systems 2 Review of Systems: Pertinent positives and negatives as stated in HPI [facility] Past Medical History Source: nursing notes reviewed Medical History Overactive bladder Urinary retention Migraines Seizure Sleep apnea Fibromyalgia HTN (hypertension) Hyperthyroidism COPD (chronic obstructive pulmonary disease) Asthma Surgical History Hx of hysterectomy Hx of tubal ligation Hx of section Family History Family History Mother Diabetes HTN (hypertension) Heart failure Maternal Aunt Breast cancer Maternal Grandmother Breast cancer Social History Social History Alcohol intake: never Patient Tobacco Use Status: Current everyday Tobacco user Cigarettes Per Day: 10 Years Smoked: 30 Substance Use Type: Prescription Drugs Advance Directives: No Advance Directives Information Provided: No Physical Exam ED Vital Signs: Vital Signs - 24 hr 08/06/23 16:42 08/07/23 00:52 08/07/23 02:36 Temperature 96.9 F 97.6 F Pulse Rate 65 71 64 Respiratory Rate 18 16 18 Blood Pressure 122/70 90/58 L 139/61 Pulse Oximetry 96 96 96 Oxygen Delivery Method Room Air Room Air Room Air BMI result Body Mass Index 38.4 VITAL SIGNS: Reviewed. GENERAL: Well developed, well nourished, in no acute distress. HEAD: Normocephalic/atraumatic EYES: PERRLA, EOMI EARS: Ext canals without abnormality, TMs non-bulging and non-erythematous NOSE: Nares patent bilateral OROPHARYNX: no oral lesions noted, posterior pharynx clear and non-erythematous without noted tonsillar enlargement/erythema/exudates NECK: Supple, no adenopathy LUNGS: Normal breath sounds. No adventitious sounds or accessory muscle use. SpO2<96> CARDIOVASCULAR: Regular rate and rhythm without noted murmurs ABDOMEN: Soft, non-tender, non-distended with bowel sounds. MUSCULOSKELETAL: No tenderness, deformities, or effusions noted on gross inspection. EXTREMITIES: No cyanosis, clubbing or edema. SKIN: Inspection of the skin reveals no rashes NEUROLOGIC: Alert and oriented x 4. Strength and sensation to light touch were grossly intact x 4. Course Course Course Narrative: This is an RME: Additional HPI, ROS, PE not included below will be deferred to primary provider. This is a [id number]-female presenting to the ER with a complaints of weakness for the last 3 weeks. Also reporting some burning and sweating when she stands. Admitting to having some odor with urination. Plan: Labs, EKG Medications Administered Discontinued Medications Generic Name Dose Route Start Last Admin Trade Name Demetrisq PRN Reason Stop Dose Admin Al Hydroxide/Mg Hydroxide 30 ml 08/07/23 01:45 08/07/23 02:05 Magnesium Hydrox/Alum Hydrox 30 Ml Oral.Susp PO 08/07/23 01:46 30 ml ONCE ONE Administration Lidocaine HCl 10 ml 08/07/23 01:45 08/07/23 02:04 Lidocaine Hcl Viscous 2 % 15 Ml Solution MUCOUS MEM 08/07/23 01:46 10 ml ONCE ONE Administration Sucralfate 1 gm 08/07/23 01:45 08/07/23 02:05 Sucralfate Oral Suspension 1 Gm/10 Ml Oral.Susp PO 08/07/23 01:46 1 gm ONCE ONE Administration Medical Decision Making Medical Decision Making MDM Narrative: 62-year-old female with multiple medical complaints that appear to be chronic in nature, however on review of all investigations or hematologic indices are grossly within normal limits without evidence of leukocytosis or left shift to suggest an infection, there is no acute anemia or thrombocytopenia to suggest any acute bleeding. Chemistry indices are grossly within normal limits without evidence of LILIYA her electrolytes/liver enzymes derangements. Patient is noted to have a mild hyperglycemia without evidence to suggest a DKA or HHS, otherwise high sensitivity troponin is undetectable. EKG does not demonstrate any acute changes. Urinalysis is negative for UTI or hematuria. Viral testing is negative for influenza/RSV/COVID. Chest x-ray is negative for infiltrate and otherwise my interpretation is in agreement with radiology's impression. My interpretation is that patient is suffering from chronic pain syndrome, she also may be somewhat physically deconditioned but adamantly declines any discussion or suggestion of short-term rehab. Differential Diagnosis Differential Diagnoses: The differential diagnosis associated with the presentation includes Please see the discussion above Admission/Observation Consideration of admission/observation: Escalation of care including admission/observation considered Please see the discussion above Lab Data MDM Lab Attestation statement: I reviewed the patient's lab results. Please see the discussion above 08/06/23 15:58 08/06/23 15:58 Labs: Lab Results 08/06/23 08/07/23 Range/Units 15:58 01:49 WBC 7.5 (4.8-10.8) X10*3/uL RBC 5.00 (4.20-5.50) X10*6/uL Hgb 14.5 (12.0-16.0) g/dl Hct 44.4 (37.0-47.0) % MCV 88.8 (80.0-98.0) fL MCH 29.0 (27.0-33.0) pg MCHC 32.7 (31.0-35.0) g/dl RDW 14.0 (11.0-16.0) % Plt Count 271 (160-400) X10*3/uL MPV 10.4 (9.4-12.3) fL Immature Gran % (Auto) 0.5 H (0.0-0.4) % Neut % (Auto) 68.5 (45-73) % Lymph % (Auto) 23.0 (20-40) % Amelia % (Auto) 6.1 (2-11) % Eos % (Auto) 1.1 (0-4) % Baso % (Auto) 0.8 (0-2) % Lymph # (Auto) 1.7 (1.2-4.9) X10*3/uL Amelia # (Auto) 0.5 (0.1-1.2) X10*3/uL Eos # (Auto) 0.1 (0.0-0.4) X10*3/uL Baso # (Auto) 0.1 (0.0-0.2) X10*3/uL Abs Immat Gran (auto) 0.04 H (0.00-0.03) X10*3/uL Absolute Neuts (auto) 5.1 (2.0-8.3) x10*3/uL Absolute Nucleated RBC 0.000 (0.0-0.012) X10*3/uL Nucleated RBC % (auto) 0.0 (0.0-0.2) /100WBC Sodium 140 (135-145) mmol/L Potassium 3.9 (3.3-5.1) mmol/L Chloride 106 (96-108) mmol/L Carbon Dioxide 26 (22-29) mmol/L Anion Gap 12 (12-20) BUN 9 (9-16) mg/dL Creatinine 0.66 (0.5-1.4) mg/dL Estim Creat Clear Calc TNP Estimated GFR > 60 Random Glucose 116 H (60-115) mg/dL Calcium 9.7 (8.4-10.2) mg/dL Total Bilirubin 0.3 (0.0-1.0) mg/dL AST 20 (5-31) U/L ALT 21 (0-31) U/L Alkaline Phosphatase 112 (39-117) U/L Troponin I High Sens < 2.7 (<3.5-17.0) ng/L Total Protein 7.4 (6.5-8.0) g/dL Albumin 4.4 (3.5-5.0) g/dL Urine Color Dark Yellow Urine Appearance Clear Urine pH 5.5 (5.0-9.0) Ur Specific [place] 1.025 (1.005-1.025) Urine Protein 30 (1+) H (Neg-Trace) mg/dL Urine Glucose (UA) Negative (Negative) mg/dL Urine Ketones Trace (Negative) mg/dL Urine Blood Negative (Negative) Urine Nitrite Negative (Negative) Ur Leukocyte Esterase Negative (Negative) Urine RBC 0-2 (0-2) /HPF Urine WBC 0-5 (0-5) /HPF Ur Squamous Epith Cells 0-2 (0-2) /HPF Urine Bacteria None Seen (None Seen) Hyaline Casts 6-10 (0-2) /LPF Influenza Type A (PCR) NEGATIVE (Negative) Influenza Type B (PCR) NEGATIVE (Negative) RSV RNA Qual (PCR) NEGATIVE (Negative) SARS-CoV-2 RNA (RT-PCR) NEGATIVE (Negative) Independent Interpretation I performed an independent interpretation of an: EKG Interpretation: Normal sinus rhythm, HR-68, no STEMI, TX/QRS/QTC is within normal limits. Radiology Impression Discussion of test interpretation with radiology: I have reviewed the radiologist's reading. Radiologist Impression: Please see the discussion above External Record Review External record reviewed: Outpatient record, Prior outpatient labs and Prior outpatient radiology Chronic Conditions Patient?s care impacted by: Hypertension and Other Asthma Critical Care Time Critical Care Time Critical Care Time: Yes Total Critical Care Time: 30 Attestation: I personally attest to this time spent taking care of the patient. Discharge Plan Discharge Clinical Impression: Chronic pain, Chronic, continuous use of opioids, Physical deconditioning Patient Disposition: Home, Self-Care Instructions: Fatigue (ED), Chronic Pain (ED) Additional Instructions: 1. Resume all home medications as prescribed. If you notice that your blood pressure is low in the afternoon discuss the possibility with your primary care doctor of using both of your blood pressure medications in the morning instead of 1 in the evening. 2. Please follow-up with your primary care doctor in the next 1-2 days. Return to the ER for any worsening symptoms. Prescriptions: No Action Gemtesa 75 mg tablet 75 mg PO DAILY 90 Days Qty: 90 1RF cyclobenzaprine 10 mg tablet 10 mg PO TID PRN (Reason: pain) Qty: 10 0RF lisinopril 10 mg tablet 10 mg PO DAILY Qty: 30 0RF loperamide [Anti-Diarrheal (loperamide)] 2 mg tablet 2 mg PO Q4H PRN (Reason: loose stool) Qty: 14 0RF Rx Instructions: administer after each loose stool until symptoms controlled; do not exceed 8 mg per 24 hrs Darien-24 400 mg capsule,extended release 24hr 400 mg PO DAILY meloxicam 15 mg tablet 15 mg PO DAILY Spiriva with HandiHaler 18 mcg capsule, w/inhalation device 1 cap inhalation DAILY dicyclomine 10 mg capsule 10 mg PO QID folic acid 1 mg tablet 1 mg PO DAILY omeprazole 20 mg capsule,delayed release(DR/EC) 40 mg PO DAILY docusate sodium 100 mg capsule 100 mg PO BEDTIME PRN levothyroxine 100 mcg tablet 100 mcg PO DAILY topiramate 25 mg tablet 25 mg PO clonazepam 1 mg tablet 1 mg PO BID PRN (Reason: panic attack) albuterol sulfate 2.5 mg /3 mL (0.083 %) solution for nebulization inhalation TID nicotine 14 mg/24 hr patch 24 hour 1 patch topical DAILY albuterol sulfate 90 mcg/actuation HFA aerosol inhaler 2 puff inhalation Q6H PRN budesonide-formoterol [Symbicort] 160-4.5 mcg/actuation HFA aerosol inhaler 2 puff inhalation BID nitroglycerin 0.3 mg tablet, sublingual 0.3 mg sublingual Q5M PRN Rx Instructions: do not exceed 3 doses per episode levothyroxine 75 mcg capsule 75 mcg PO DAILY montelukast [Singulair] 10 mg tablet 10 mg PO DAILY pregabalin [Lyrica] 300 mg capsule 300 mg PO BID isosorbide mononitrate 30 mg tablet extended release 24 hr 30 mg PO DAILY Rx Instructions: 2 tabs daily hydrochlorothiazide 12.5 mg tablet 12.5 mg PO DAILY furosemide [Lasix] 20 mg tablet 10 mg PO QAM diclofenac sodium 1 % gel 2 g topical QID Rx Instructions: apply to single elbow, wrist or hand; for hand includes palm/fingers/back of hand lidocaine 5 % adhesive patch,medicated 3 patch topical DAILY Rx Instructions: leave on most painful area for up to 12 hrs simvastatin 20 mg tablet 20 mg PO DAILY aspirin 81 mg tablet,delayed release (DR/EC) 81 mg PO DAILY meclizine 25 mg tablet 25 mg PO DAILY Referrals: Name,MD Tone [Primary Care Provider] -
[2023-08-06 17:13] LABS: Influenza A PCR NEGATIVE (Negative); Influenza B PCR NEGATIVE (Negative); Resp Syncy Virus RNA Qual PCR NEGATIVE (Negative); SARS COV2 PCR INHOUSE NEGATIVE (Negative)
[2023-08-07 00:52] VITALS: BP 90/58; PULSE 71; RESP 16; TEMP 36.4; O2SAT 96
--- NOTE | 2023-08-07 01:58 | PC.NURSE ---
Pt unable to void, opted for straight catheterization. Pt voided 80mL of dark yellow, clear urine. Specimen sent to lab.
[2023-08-07 02:01] LABS: Appearance Urine Clear; Color Urine Dark Yellow; Glucose Urine UA Negative (Negative); Leukocyte Esterase Urine Negative (Negative); Nitrite Urine Negative (Negative); PH 5.5 (5.0-9.0); Specific Gravity - Urine 1.025 (1.005-1.025); UMIC TRIGGER UACC YES; Urine Blood Negative (Negative); Urine Ketones Trace mg/dL (Negative); Urine Protein 30 (1+) mg/dL (Neg-Trace)
[2023-08-07] MEDS: Lidocaine HCl Viscous 2 % 15 ML SOLUTION 10 ML MUCOUS MEM (02:04)
[2023-08-07] MEDS: Magnesium Hydrox/Alum Hydrox 30 ML ORAL.SUSP PO (02:05)
[2023-08-07] MEDS: Sucralfate Oral Suspension 1 GM/10 ML ORAL.SUSP PO (02:05)
[2023-08-07 02:36] VITALS: BP 139/61; PULSE 64; RESP 18; O2SAT 96
[2023-08-07 02:51] LABS: Bacteria Urine None Seen (None Seen); RBC Urine 0-2 /HPF (0-2); Squamous Epithelial Cell Urine 0-2 /HPF (0-2); WBC Urine 0-5 /HPF (0-5)
== END 2023-08-07 04:16 | disposition home or self-care (01) ==
PROVIDERS: Physician Assistant Medical; Emergency Provider Student in an Organized Health Care Education/Training Program; PCP Internal Medicine Geriatric Medicine
DX: R07.89 Other chest pain (principal); R51.9 Headache, unspecified; R30.0 Dysuria; R11.2 Nausea with vomiting, unspecified; G89.29 Other chronic pain; F17.200 Nicotine dependence, unspecified, uncomplicated; Z20.822 Contact with and (suspected) exposure to COVID-19; Z20.828 Contact with and (suspected) exposure to other viral communicable diseases; Z71.6 Tobacco abuse counseling; Z79.899 Other long term (current) drug therapy
CPT/HCPCS: 0241U; 51701; 71046; 80053; 81001; 81003; 84484; 85025; 93005; 99283; 99285

== ENCOUNTER 2023-10-06 14:43 | Outpatient (REF) | payer MEDICAID, SELFPAY ==
[2023-10-06 16:34] LABS: Cholesterol 269 mg/dL (<200); HDL Cholesterol 71 mg/dL (>40); LDL Cholesterol Calculated 165 mg/dL (<100); Triglycerides 169 mg/dL (<150)
[2023-10-06 16:39] LABS: TSH reflex Free T4 0.78 uIU/mL (0.32-4.0)
[2023-10-06 17:42] LABS: Phenytoin Dilantin 3.6 ug/mL (10.0-20.0)
[2023-10-07 05:52] LABS: HIV AB/AG Nonreactive (Nonreactive); HIV Num 1 0.04 S/CO (0.00-0.99); ~Hepatitis C Antibody Nonreactive (Nonreactive)
== END 2023-10-06 14:44 | disposition home or self-care (01) ==
LOC: HO.HHCL 14:43
PROVIDERS: Visit Provider Internal Medicine Geriatric Medicine
DX: E89.0 Postprocedural hypothyroidism (principal); G40.909 Epilepsy, unspecified, not intractable, without status epilepticus; Z11.59 Encounter for screening for other viral diseases; Z11.4 Encounter for screening for human immunodeficiency virus [HIV]; Z13.220 Encounter for screening for lipoid disorders
CPT/HCPCS: 36415; 80061; 80185; 84443; 86803; 87389

== ENCOUNTER 2023-10-23 14:44 | Emergency (ER) | payer MEDICAID, SELFPAY ==
--- NOTE | ~2023-10-23 | XR_ITS ---
EXAMINATION: XR CHEST CLINICAL INFORMATION: Chest pain. COMPARISON: Chest radiograph 08/06/2023. TECHNIQUE: 2 views of the chest were obtained. FINDINGS: Stable chronic central peribronchial thickening. Equivocal very subtle focal hazy opacities projecting over the right lower lobe. No pleural effusion or pneumothorax. Unchanged cardiomediastinal silhouette. No displaced osseous fractures. Metallic body projecting over the soft tissues of the right upper cervical region, most likely related with external patient jewelry, correlate with physical examination. XR/XR chest 2V IMPRESSION: Chronic small airways disease with equivocal superimposed early infiltrates in the right lower lobe. Recommend clinical correlation for pneumonia and short-term follow-up radiograph.
--- NOTE | 2023-10-23 14:47 | ECG_ITS ---
Test Reason : high bp Blood Pressure : / mmHG Vent. Rate : 079 BPM Atrial Rate : 079 BPM P-R Int : 164 ms QRS Dur : 084 ms QT Int : 386 ms P-R-T Axes : 055 027 070 degrees QTc Int : 442 ms Normal sinus rhythm Nonspecific ST and T wave abnormality Abnormal ECG When compared with ECG of 06-AUG-2023 15:51, No significant change was found Referred By: Hazel Kenny Electronically Signed By:Satish Pineda
[2023-10-23 15:34] VITALS: BP 122/74; PULSE 77; RESP 18; TEMP 36; O2SAT 94; BMI 38.4
--- NOTE | 2023-10-23 15:41 | ED.CHESTPAIN ---
HPI - Chest Pain General Chief Complaint: Chest Pain Stated Complaint: Chest pain, high BP Related Data Home Medications Medication Instructions Recorded Confirmed albuterol sulfate 90 mcg/actuation 2 puff inhalation Q6H PRN 02/28/21 11/26/22 aerosol inhaler aspirin 81 mg tablet,delayed 81 mg PO DAILY 02/28/21 11/26/22 release budesonide-formoterol HFA 160 2 puff inhalation BID 02/28/21 11/26/22 mcg-4.5 mcg/actuation aerosol inhaler (Symbicort) diclofenac sodium 1 % topical gel 2 g topical QID 02/28/21 11/26/22 furosemide 20 mg tablet (Lasix) 10 mg PO QAM 02/28/21 11/26/22 hydrochlorothiazide 12.5 mg tablet 12.5 mg PO DAILY 02/28/21 11/26/22 isosorbide mononitrate 30 mg 30 mg PO DAILY 02/28/21 11/26/22 tablet,extended release 24 hr levothyroxine 75 mcg capsule 75 mcg PO DAILY 02/28/21 11/26/22 lidocaine 5 % topical patch 3 patch topical DAILY 02/28/21 11/26/22 meclizine 25 mg tablet 25 mg PO DAILY 02/28/21 11/26/22 montelukast 10 mg tablet 10 mg PO DAILY 02/28/21 11/26/22 (Singulair) nitroglycerin 0.3 mg sublingual 0.3 mg sublingual Q5M PRN 02/28/21 11/26/22 tablet pregabalin 300 mg capsule (Lyrica) 300 mg PO BID 02/28/21 11/26/22 simvastatin 20 mg tablet 20 mg PO DAILY 02/28/21 11/26/22 albuterol sulfate 2.5 mg/3 mL mg inhalation TID 05/24/21 11/26/22 (0.083 %) solution for nebulization clonazepam 1 mg tablet 1 mg PO BID PRN panic attack 05/24/21 11/26/22 dicyclomine 10 mg capsule 10 mg PO QID 05/24/21 11/26/22 docusate sodium 100 mg capsule 100 mg PO BEDTIME PRN 05/24/21 11/26/22 folic acid 1 mg tablet 1 mg PO DAILY 05/24/21 11/26/22 levothyroxine 100 mcg tablet 100 mcg PO DAILY 05/24/21 11/26/22 meloxicam 15 mg tablet 15 mg PO DAILY 05/24/21 11/26/22 nicotine 14 mg/24 hr daily 1 patch topical DAILY 05/24/21 11/26/22 transdermal patch omeprazole 20 mg capsule,delayed 40 mg PO DAILY 05/24/21 11/26/22 release theophylline 400 mg 400 mg PO DAILY 05/24/21 11/26/22 capsule,extended release 24 hr (Darien-24) tiotropium bromide 18 mcg capsule 1 cap inhalation DAILY 05/24/21 11/26/22 with inhalation device (Spiriva with HandiHaler) topiramate 25 mg tablet 25 mg PO 05/24/21 11/26/22 Previous Rx's Medication Instructions Recorded cyclobenzaprine 10 mg tablet 10 mg PO TID PRN pain #10 tabs 06/22/20 lisinopril 10 mg tablet 10 mg PO DAILY #30 tabs 07/24/20 loperamide 2 mg tablet 2 mg PO Q4H PRN loose stool #14 07/09/21 (Anti-Diarrheal (loperamide)) tabs vibegron 75 mg tablet (Gemtesa) 75 mg PO DAILY 90 days #90 tabs 01/02/23 Allergies Allergy/AdvReac Type Severity Reaction Status Date / Time Penicillins [PENICILLINS] Allergy Severe HIVES Verified 10/23/23 15:37 amoxicillin [AMOXICILLIN] Allergy Intermediate HIVES Verified 10/23/23 15:37 ciprofloxacin [From Cipro] Allergy Intermediate Hives Verified 10/23/23 15:37 acetaminophen [From Tylox] Allergy Unknown Rash, Verified 10/23/23 15:37 Nausea and Vomiting ibuprofen [From Motrin] Allergy Unknown Gastrointestinal Verified 10/23/23 15:37 Upset latex [LATEX] Allergy Unknown RASH Verified 10/23/23 15:37 penicillin V Allergy Unknown rash Verified 10/23/23 15:37 PMFSH Past Medical History Medical History Overactive bladder Urinary retention Migraines Seizure Sleep apnea Fibromyalgia HTN (hypertension) Hyperthyroidism COPD (chronic obstructive pulmonary disease) Asthma Surgical History Hx of hysterectomy Hx of tubal ligation Hx of section Family History Family History Mother Diabetes HTN (hypertension) Heart failure Maternal Aunt Breast cancer Maternal Grandmother Breast cancer Social History Social History (System 10/08/23 @ 16:17 by Laney Rueda) Alcohol intake: never Patient Tobacco Use Status: Current everyday Tobacco user Cigarettes Per Day: 10 Years Smoked: 30 Substance Use Type: Prescription Drugs Advance Directives: No Advance Directives Information Provided: No Physical Exam Vital Signs: Vital Signs: Last Vital Signs Temp 96.8 F 10/23/23 15:34 Pulse 77 10/23/23 15:34 Resp 18 10/23/23 15:34 BP 122/74 10/23/23 15:34 Pulse Ox 94 10/23/23 15:34 O2 Del Method Room Air 10/23/23 15:34 BMI result Body Mass Index 38.4 Course Course Course Narrative: This is a rapid medical exam: Additional HPI, ROS, PE not included below will be deferred to primary provider. Patient is a 62-year-old female referred to ED for intermittent chest pain, radiating down left arm, elevated blood pressure for the past 2 weeks. Plan: EKG, labs, CXR Medical Decision Making Lab Data 10/23/23 16:12 10/23/23 16:12 Labs: Lab Results 10/23/23 Range/Units 16:12 WBC 10.9 H (4.8-10.8) X10*3/uL RBC 5.11 (4.20-5.50) X10*6/uL Hgb 14.8 (12.0-16.0) g/dl Hct 45.0 (37.0-47.0) % MCV 88.1 (80.0-98.0) fL MCH 29.0 (27.0-33.0) pg MCHC 32.9 (31.0-35.0) g/dl RDW 13.5 (11.0-16.0) % Plt Count 316 (160-400) X10*3/uL MPV 9.5 (9.4-12.3) fL Immature Gran % (Auto) 0.3 (0.0-0.4) % Neut % (Auto) 62.2 (45-73) % Lymph % (Auto) 29.4 (20-40) % [place] % (Auto) 6.0 (2-11) % Eos % (Auto) 1.2 (0-4) % Baso % (Auto) 0.9 (0-2) % Lymph # (Auto) 3.2 (1.2-4.9) X10*3/uL [place] # (Auto) 0.7 (0.1-1.2) X10*3/uL Eos # (Auto) 0.1 (0.0-0.4) X10*3/uL Baso # (Auto) 0.1 (0.0-0.2) X10*3/uL Abs Immat Gran (auto) 0.03 (0.00-0.03) X10*3/uL Absolute Neuts (auto) 6.8 (2.0-8.3) x10*3/uL Absolute Nucleated RBC 0.000 (0.0-0.012) X10*3/uL Nucleated RBC % (auto) 0.0 (0.0-0.2) /100WBC PT 10.7 L (11.1-13.3) SEC INR 0.9 (0.9-1.1) Sodium 141 (135-145) mmol/L Potassium 3.8 (3.3-5.1) mmol/L Chloride 107 (96-108) mmol/L Carbon Dioxide 27 (22-29) mmol/L Anion Gap 11 L (12-20) BUN 11 (9-16) mg/dL Creatinine 0.79 (0.5-1.4) mg/dL Estim Creat Clear Calc 89.4 Estimated GFR > 60 Random Glucose 88 (60-115) mg/dL Calcium 9.8 (8.4-10.2) mg/dL Total Bilirubin 0.3 (0.0-1.0) mg/dL AST 26 (5-31) U/L ALT 35 H (0-31) U/L Alkaline Phosphatase 141 H (39-117) U/L Troponin I High Sens < 2.7 (<3.5-17.0) ng/L B-Natriuretic Peptide < 10 (<100) pg/mL Total Protein 7.6 (6.5-8.0) g/dL Albumin 4.4 (3.5-5.0) g/dL Discharge Plan Discharge Clinical Impression: Chest pain Patient Disposition: Left W/O Completing Treatment Prescriptions: No Action Gemtesa 75 mg tablet 75 mg PO DAILY 90 Days Qty: 90 1RF cyclobenzaprine 10 mg tablet 10 mg PO TID PRN (Reason: pain) Qty: 10 0RF lisinopril 10 mg tablet 10 mg PO DAILY Qty: 30 0RF loperamide [Anti-Diarrheal (loperamide)] 2 mg tablet 2 mg PO Q4H PRN (Reason: loose stool) Qty: 14 0RF Rx Instructions: administer after each loose stool until symptoms controlled; do not exceed 8 mg per 24 hrs Darien-24 400 mg capsule,extended release 24hr 400 mg PO DAILY meloxicam 15 mg tablet 15 mg PO DAILY Spiriva with HandiHaler 18 mcg capsule, w/inhalation device 1 cap inhalation DAILY dicyclomine 10 mg capsule 10 mg PO QID folic acid 1 mg tablet 1 mg PO DAILY omeprazole 20 mg capsule,delayed release(DR/EC) 40 mg PO DAILY docusate sodium 100 mg capsule 100 mg PO BEDTIME PRN levothyroxine 100 mcg tablet 100 mcg PO DAILY topiramate 25 mg tablet 25 mg PO clonazepam 1 mg tablet 1 mg PO BID PRN (Reason: panic attack) albuterol sulfate 2.5 mg /3 mL (0.083 %) solution for nebulization inhalation TID nicotine 14 mg/24 hr patch 24 hour 1 patch topical DAILY albuterol sulfate 90 mcg/actuation HFA aerosol inhaler 2 puff inhalation Q6H PRN budesonide-formoterol [Symbicort] 160-4.5 mcg/actuation HFA aerosol inhaler 2 puff inhalation BID nitroglycerin 0.3 mg tablet, sublingual 0.3 mg sublingual Q5M PRN Rx Instructions: do not exceed 3 doses per episode levothyroxine 75 mcg capsule 75 mcg PO DAILY montelukast [Singulair] 10 mg tablet 10 mg PO DAILY pregabalin [Lyrica] 300 mg capsule 300 mg PO BID isosorbide mononitrate 30 mg tablet extended release 24 hr 30 mg PO DAILY Rx Instructions: 2 tabs daily hydrochlorothiazide 12.5 mg tablet 12.5 mg PO DAILY furosemide [Lasix] 20 mg tablet 10 mg PO QAM diclofenac sodium 1 % gel 2 g topical QID Rx Instructions: apply to single elbow, wrist or hand; for hand includes palm/fingers/back of hand lidocaine 5 % adhesive patch,medicated 3 patch topical DAILY Rx Instructions: leave on most painful area for up to 12 hrs simvastatin 20 mg tablet 20 mg PO DAILY aspirin 81 mg tablet,delayed release (DR/EC) 81 mg PO DAILY meclizine 25 mg tablet 25 mg PO DAILY Discharge Date/Time: 10/23/23 18:49
[2023-10-23 16:18] LABS: MANUAL DIFF FLAG NO
[2023-10-23 16:22] LABS: Basophils Absolute Auto 0.1 X10*3/uL (0.0-0.2); Basophils Percent Auto 0.9 % (0-2); Eosinophils Absolute Auto 0.1 X10*3/uL (0.0-0.4); Eosinophils Percent Auto 1.2 % (0-4); Hemoglobin 14.8 g/dl (12.0-16.0); Imm Gran Abs Auto 0.03 X10*3/uL (0.00-0.03); Imm Gran Pct Auto 0.3 % (0.0-0.4); Lymphocytes Absolute Auto 3.2 X10*3/uL (1.2-4.9); Lymphocytes Percent Auto 29.4 % (20-40); Mean Corpuscular HGB Conc 32.9 g/dl (31.0-35.0); Mean Corpuscular Volume 88.1 fL (80.0-98.0); Mean Platelet Volume 9.5 fL (9.4-12.3); Monocytes Absolute Auto 0.7 X10*3/uL (0.1-1.2); Neutrophils Absolute Auto 6.8 x10*3/uL (2.0-8.3); Neutrophils Percent Auto 62.2 % (45-73); Platelet Count 316 X10*3/uL (160-400); Red Blood Count 5.11 X10*6/uL (4.20-5.50); Red Cell Distribution Width 13.5 % (11.0-16.0); White Blood Count 10.9 X10*3/uL (4.8-10.8)
--- NOTE | 2023-10-23 16:24 | MHC.EDTECH ---
Patient ekg taken and was read by Provider ,blood drawn and sent to lab .
[2023-10-23 16:26] LABS: INTERNATIONAL NORM RATIO 0.9 (0.9-1.1); Prothrombin Time 10.7 SEC (11.1-13.3)
[2023-10-23 16:32] LABS: Alanine Aminotransferase 35 U/L (0-31); Albumin Level 4.4 g/dL (3.5-5.0); Alkaline Phosphatase 141 U/L (39-117); Anion Gap 11 (12-20); Aspartate Amino Transferase 26 U/L (5-31); Bilirubin Total 0.3 mg/dL (0.0-1.0); Blood Urea Nitrogen 11 mg/dL (9-16); Calcium 9.8 mg/dL (8.4-10.2); Carbon Dioxide 27 mmol/L (22-29); Chloride 107 mmol/L (96-108); Creatinine Clr Calc Pharmacy 89.4; Estimated Glomerular Filt Rate > 60; Glucose Random 88 mg/dL (60-115); Potassium 3.8 mmol/L (3.3-5.1); Sodium 141 mmol/L (135-145); Total Protein 7.6 g/dL (6.5-8.0)
[2023-10-23 16:38] LABS: B Type Natriuretic Peptide < 10 pg/mL (<100)
[2023-10-23 16:41] LABS: Troponin-I High Sensitivity < 2.7 ng/L (<3.5-17.0)
== END 2023-10-23 18:49 | disposition left against medical advice (07) ==
PROVIDERS: Registered Nurse Emergency; Emergency Provider Emergency Medicine; PCP Internal Medicine Geriatric Medicine
DX: R07.9 Chest pain, unspecified (principal); I10 Essential (primary) hypertension; Z79.899 Other long term (current) drug therapy; F17.210 Nicotine dependence, cigarettes, uncomplicated
CPT/HCPCS: 36415; 71046; 80053; 83880; 84484; 85025; 85610; 93005; 99283

== ENCOUNTER → 2023-10-23 14:47 | Outpatient (BNV) | payer MEDICAID, SELFPAY | PROVIDERS: Emergency Provider Emergency Medicine; PCP Internal Medicine Geriatric Medicine; Visit Provider Internal Medicine Cardiovascular Disease | DX: R94.31 Abnormal electrocardiogram [ECG] [EKG] (principal) | CPT/HCPCS: 93010 ==

== ENCOUNTER 2024-01-22 18:53 | Emergency (ER) | payer MEDICARE, MEDICAID, SELFPAY ==
--- NOTE | ~2024-01-22 | CT_ITS ---
EXAMINATION: CT HEAD WITHOUT CONTRAST CT CERVICAL SPINE WITHOUT CONTRAST CLINICAL INFORMATION: Fall. Pain. Injury. COMPARISON: Head CT dated 05/13/[address] cervical spine dated 10/14/2022. TECHNIQUE: Contiguous axial imaging was performed from the skullbase to vertex without intravenous administration of contrast. Multidetector helical imaging was performed through the cervical spine. This CT examination was performed using dose optimization techniques as appropriate, variously including the following: *Automated exposure control *Adjustment of mA and/or kV according to patient size (this includes techniques or standardized protocols for targeted exams where dose is matched to indication/reason for exam; i.e. extremities or head) *Use of iterative reconstruction technique DLP: 1367 mGy-cm. FINDINGS: HEAD: There is no evidence of acute intracranial hemorrhage or territorial infarction. No abnormal mass effect or midline shift is seen. Adams to white matter differentiation is well preserved. No extra-axial fluid collections are identified. The ventricles are normal in size. Brain parenchymal attenuation is normal. The osseous structures and soft tissues are normal. The mastoid air cells and visualized portions of the paranasal sinuses are well aerated. CERVICAL SPINE: No acute fracture or subluxation is identified in the cervical spine. The disc spaces are maintained. No large disc protrusion is noted. The atlantoaxial articulation is normally maintained. The paraspinal soft tissues are normal. The thyroid gland is not well seen. The lung apices are clear. CT/CT head/brain wo IV con IMPRESSION: 1. No acute intracranial pathology. 2. No evidence of acute cervical spine traumatic injury.
--- NOTE | ~2024-01-22 | CT_ITS ---
EXAMINATION: CT HEAD WITHOUT CONTRAST CT CERVICAL SPINE WITHOUT CONTRAST CLINICAL INFORMATION: Fall. Pain. Injury. COMPARISON: Head CT dated 05/13/[address] cervical spine dated 10/14/2022. TECHNIQUE: Contiguous axial imaging was performed from the skullbase to vertex without intravenous administration of contrast. Multidetector helical imaging was performed through the cervical spine. This CT examination was performed using dose optimization techniques as appropriate, variously including the following: *Automated exposure control *Adjustment of mA and/or kV according to patient size (this includes techniques or standardized protocols for targeted exams where dose is matched to indication/reason for exam; i.e. extremities or head) *Use of iterative reconstruction technique DLP: 1367 mGy-cm. FINDINGS: HEAD: There is no evidence of acute intracranial hemorrhage or territorial infarction. No abnormal mass effect or midline shift is seen. Adams to white matter differentiation is well preserved. No extra-axial fluid collections are identified. The ventricles are normal in size. Brain parenchymal attenuation is normal. The osseous structures and soft tissues are normal. The mastoid air cells and visualized portions of the paranasal sinuses are well aerated. CERVICAL SPINE: No acute fracture or subluxation is identified in the cervical spine. The disc spaces are maintained. No large disc protrusion is noted. The atlantoaxial articulation is normally maintained. The paraspinal soft tissues are normal. The thyroid gland is not well seen. The lung apices are clear. CT/CT cervical spine wo IV con IMPRESSION: 1. No acute intracranial pathology. 2. No evidence of acute cervical spine traumatic injury.
[2024-01-22 19:01] VITALS: BP 149/88; PULSE 74; RESP 16; TEMP 36.3; O2SAT 95; BMI 38.7
--- NOTE | 2024-01-22 19:05 | ED_ITS ---
HPI - General Adult General Chief complaint: Headache Stated complaint: fell 2 weeks headache nausea vomitting Time Seen by Provider: 01/22/24 21:28 Source: patient Mode of arrival: ambulatory Limitations: no limitations History of Present Illness HPI narrative: Patient apparently fell 2 weeks ago after losing balance in the store fell forward since then complaining of headache , also been complaining of nausea vomiting diarrhea which started about 4 days after the fall patient does have history of migraine and headache gets worse with light no fever no chills no sore throat Related Data Home Medications ?Medication ?Instructions ?Recorded ?Confirmed albuterol sulfate 90 mcg/actuation 2 puff inhalation Q6H PRN 02/28/21 11/26/22 aerosol inhaler aspirin 81 mg tablet,delayed 81 mg PO DAILY 02/28/21 11/26/22 release budesonide-formoterol HFA 160 2 puff inhalation BID 02/28/21 11/26/22 mcg-4.5 mcg/actuation aerosol inhaler (Symbicort) diclofenac sodium 1 % topical gel 2 g topical QID 02/28/21 11/26/22 furosemide 20 mg tablet (Lasix) 10 mg PO QAM 02/28/21 11/26/22 hydrochlorothiazide 12.5 mg tablet 12.5 mg PO DAILY 02/28/21 11/26/22 isosorbide mononitrate 30 mg 30 mg PO DAILY 02/28/21 11/26/22 tablet,extended release 24 hr levothyroxine 75 mcg capsule 75 mcg PO DAILY 02/28/21 11/26/22 lidocaine 5 % topical patch 3 patch topical DAILY 02/28/21 11/26/22 meclizine 25 mg tablet 25 mg PO DAILY 02/28/21 11/26/22 montelukast 10 mg tablet 10 mg PO DAILY 02/28/21 11/26/22 (Singulair) nitroglycerin 0.3 mg sublingual 0.3 mg sublingual Q5M PRN 02/28/21 11/26/22 tablet pregabalin 300 mg capsule (Lyrica) 300 mg PO BID 02/28/21 11/26/22 simvastatin 20 mg tablet 20 mg PO DAILY 02/28/21 11/26/22 albuterol sulfate 2.5 mg/3 mL mg inhalation TID 05/24/21 11/26/22 (0.083 %) solution for nebulization clonazepam 1 mg tablet 1 mg PO BID PRN panic attack 05/24/21 11/26/22 dicyclomine 10 mg capsule 10 mg PO QID 05/24/21 11/26/22 docusate sodium 100 mg capsule 100 mg PO BEDTIME PRN 05/24/21 11/26/22 folic acid 1 mg tablet 1 mg PO DAILY 05/24/21 11/26/22 levothyroxine 100 mcg tablet 100 mcg PO DAILY 05/24/21 11/26/22 meloxicam 15 mg tablet 15 mg PO DAILY 05/24/21 11/26/22 nicotine 14 mg/24 hr daily 1 patch topical DAILY 05/24/21 11/26/22 transdermal patch omeprazole 20 mg capsule,delayed 40 mg PO DAILY 05/24/21 11/26/22 release theophylline 400 mg 400 mg PO DAILY 05/24/21 11/26/22 capsule,extended release 24 hr (Darien-24) tiotropium bromide 18 mcg capsule 1 cap inhalation DAILY 05/24/21 11/26/22 with inhalation device (Spiriva with HandiHaler) topiramate 25 mg tablet 25 mg PO 05/24/21 11/26/22 Previous Rx's ?Medication ?Instructions ?Recorded cyclobenzaprine 10 mg tablet 10 mg PO TID PRN pain #10 tabs 06/22/20 lisinopril 10 mg tablet 10 mg PO DAILY #30 tabs 07/24/20 loperamide 2 mg tablet 2 mg PO Q4H PRN loose stool #14 07/09/21 (Anti-Diarrheal (loperamide)) tabs vibegron 75 mg tablet (Gemtesa) 75 mg PO DAILY 90 days #90 tabs 01/02/23 ondansetron 4 mg disintegrating 4 mg PO Q6-8H PRN nausea and 01/22/24 tablet vomiting #7 tabs Allergies Allergy/AdvReac Type Severity Reaction Status Date / Time Penicillins [PENICILLINS] Allergy Severe HIVES Verified 01/22/24 19:03 amoxicillin [AMOXICILLIN] Allergy Intermediate HIVES Verified 01/22/24 19:03 ciprofloxacin [From Cipro] Allergy Intermediate Hives Verified 01/22/24 19:03 acetaminophen [From Tylox] Allergy Unknown Rash, Verified 01/22/24 19:03 Nausea and Vomiting ibuprofen [From Motrin] Allergy Unknown Gastrointestinal Verified 01/22/24 19:03 Upset latex [LATEX] Allergy Unknown RASH Verified 01/22/24 19:03 penicillin V Allergy Unknown rash Verified 01/22/24 19:03 Review of Systems 2 Review of Systems: Yes all other systems are reviewed and are negative [facility] Past Medical History Medical History Overactive bladder Urinary retention Migraines Seizure Sleep apnea Fibromyalgia HTN (hypertension) Hyperthyroidism COPD (chronic obstructive pulmonary disease) Asthma Surgical History Hx of hysterectomy Hx of tubal ligation Hx of section Family History Family History Mother Diabetes HTN (hypertension) Heart failure Maternal Aunt Breast cancer Maternal Grandmother Breast cancer Social History Social History (System 10/08/23 @ 16:17 by Laney Rueda) Alcohol intake: never Patient Tobacco Use Status: Current everyday Tobacco user Cigarettes Per Day: 10 Years Smoked: 30 Substance Use Type: Prescription Drugs Advance Directives: Yes Advance Directives Information Provided: No Advance Directives on File: No Do you have a plan to hurt others: No Plan Physical Exam ED Vital Signs: Vital Signs - 24 hr 01/22/24 19:01 01/22/24 21:55 01/22/24 22:46 Temperature 97.4 F 98.4 F 98 F Pulse Rate 74 71 76 Respiratory Rate 16 18 20 Blood Pressure 149/88 H 147/91 H 148/90 H Pulse Oximetry 95 97 97 Oxygen Delivery Method Room Air Room Air Room Air BMI result Body Mass Index 38.7 Appearance: Alert. Oriented X3. No acute distress. Eyes: PERRLA, No Nystagmus ENT: Pharynx normal. Oral Mucosa moist atraumatic normocephalic Neck: Normal inspection. Neck supple. CVS: Normal heart rate and rhythm. Pulses normal. Respiratory: No respiratory distress. Equal air entry bilateral, no wheezing/rales/rhonchi Abdomen: Soft and nontender. Bowel sounds are present, no mass palpable, no CVA tenderness Skin: Skin warm and dry. Normal skin color. Normal skin turgor. Extremities: No lower extremity edema. No calf tenderness Neuro: Oriented X 3. No motor deficit. No sensory deficit.No cerebellar signs , cranial nerves II-XII intact Course Course Course Narrative: RME performed by Andreina Duke PA-C. Patient is a 63 year old assigned female at presenting to the emergency department with a headache and nausea. Patient states 2 weeks ago she had a fall, striking her head. Patient states that the pain persists and is getting worse. Patient also states that she is having some tightness in her chest and pain elsewhere. Patient confirms she is on both Tramadol and oxycodone for her chronic pain management. Detailed physical exam and review of systems are deferred to the adaptive physical education teacher. EKG, labs, and imaging ordered. Patient placed back in the waiting room pending room availability and results. Medications Administered Discontinued Medications Generic Name Dose Route Start Last Admin Trade Name Star PRN Reason Stop Dose Admin Morphine Sulfate 15 mg 01/22/24 22:04 01/22/24 22:40 Morphine Sulfate Immed Release 15 Mg Tablet PO 01/22/24 22:05 15 mg ONCE ONE Administration Ondansetron HCl 4 mg 01/22/24 22:04 01/22/24 22:40 Ondansetron Odt 4 Mg Tab.Rapdis TRANSLINGU 01/22/24 22:05 4 mg ONCE ONE Administration Medical Decision Making Medical Decision Making [facility] Narrative: Patient is status post mechanical fall with history of migraine been having nausea vomiting and diarrhea 3 days after the fall likely from no migraine nursing not related to the fall CT head and C-spine negative will discharge patient home on nausea medication advised to continue medicine for headaches which she takes Topamax Lab Data [facility] Lab Attestation statement: I reviewed the patient's lab results. 01/22/24 19:30 01/22/24 19:30 Labs: Lab Results 01/22/24 Range/Units 19:30 WBC 7.4 (4.8-10.8) X10*3/uL RBC 4.90 (4.20-5.50) X10*6/uL Hgb 14.6 (12.0-16.0) g/dl Hct 43.3 (37.0-47.0) % MCV 88.4 (80.0-98.0) fL MCH 29.8 (27.0-33.0) pg MCHC 33.7 (31.0-35.0) g/dl RDW 14.5 (11.0-16.0) % Plt Count 283 (160-400) X10*3/uL MPV 9.7 (9.4-12.3) fL Immature Gran % (Auto) 0.1 (0.0-0.4) % Neut % (Auto) 63.8 (45-73) % Lymph % (Auto) 28.0 (20-40) % Cotton % (Auto) 5.3 (2-11) % Eos % (Auto) 1.4 (0-4) % Baso % (Auto) 1.4 (0-2) % Lymph # (Auto) 2.1 (1.2-4.9) X10*3/uL Cotton # (Auto) 0.4 (0.1-1.2) X10*3/uL Eos # (Auto) 0.1 (0.0-0.4) X10*3/uL Baso # (Auto) 0.1 (0.0-0.2) X10*3/uL Abs Immat Gran (auto) 0.01 (0.00-0.03) X10*3/uL Absolute Neuts (auto) 4.7 (2.0-8.3) x10*3/uL Absolute Nucleated RBC 0.000 (0.0-0.012) X10*3/uL Nucleated RBC % (auto) 0.0 (0.0-0.2) /100WBC Sodium 142 (135-145) mmol/L Potassium 4.2 (3.3-5.1) mmol/L Chloride 107 (96-108) mmol/L Carbon Dioxide 26 (22-29) mmol/L Anion Gap 13 (12-20) BUN 10 (9-16) mg/dL Creatinine 0.70 (0.5-1.4) mg/dL Estim Creat Clear Calc 100.0 Estimated GFR > 60 Random Glucose 98 (60-115) mg/dL Calcium 9.7 (8.4-10.2) mg/dL Magnesium 2.2 (1.6-2.6) mg/dL Total Bilirubin 0.2 (0.0-1.0) mg/dL AST 30 (5-31) U/L ALT 44 H (0-31) U/L Alkaline Phosphatase 144 H (39-117) U/L Troponin I High Sens < 2.7 (<3.5-17.0) ng/L Total Protein 7.8 (6.5-8.0) g/dL Albumin 4.5 (3.5-5.0) g/dL Influenza Type A (PCR) NEGATIVE (Negative) Influenza Type B (PCR) NEGATIVE (Negative) RSV RNA Qual (PCR) NEGATIVE (Negative) SARS-CoV-2 RNA (RT-PCR) NEGATIVE (Negative) Independent Interpretation I performed an independent interpretation of an: CT Scan Radiology Impression Discussion of test interpretation with radiology: I have reviewed the radiologist's reading. Discharge Plan Discharge Clinical Impression: Migraine, Gastroenteritis Patient Disposition: Home, Self-Care Instructions: Migraine Headache (ED), Gastroenteritis (ED) Additional Instructions: Drink plenty of fluids Take medication as prescribed Follow-up with your PCP as needed Your CT scan of the head and C-spine negative for acute Prescriptions: New ondansetron 4 mg tablet,disintegrating 4 mg PO Q6-8H PRN (Reason: nausea and vomiting) Qty: 7 0RF No Action Gemtesa 75 mg tablet 75 mg PO DAILY 90 Days Qty: 90 1RF cyclobenzaprine 10 mg tablet 10 mg PO TID PRN (Reason: pain) Qty: 10 0RF lisinopril 10 mg tablet 10 mg PO DAILY Qty: 30 0RF loperamide [Anti-Diarrheal (loperamide)] 2 mg tablet 2 mg PO Q4H PRN (Reason: loose stool) Qty: 14 0RF Rx Instructions: administer after each loose stool until symptoms controlled; do not exceed 8 mg per 24 hrs Darien-24 400 mg capsule,extended release 24hr 400 mg PO DAILY meloxicam 15 mg tablet 15 mg PO DAILY Spiriva with HandiHaler 18 mcg capsule, w/inhalation device 1 cap inhalation DAILY dicyclomine 10 mg capsule 10 mg PO QID folic acid 1 mg tablet 1 mg PO DAILY omeprazole 20 mg capsule,delayed release(DR/EC) 40 mg PO DAILY docusate sodium 100 mg capsule 100 mg PO BEDTIME PRN levothyroxine 100 mcg tablet 100 mcg PO DAILY topiramate 25 mg tablet 25 mg PO clonazepam 1 mg tablet 1 mg PO BID PRN (Reason: panic attack) albuterol sulfate 2.5 mg /3 mL (0.083 %) solution for nebulization inhalation TID nicotine 14 mg/24 hr patch 24 hour 1 patch topical DAILY albuterol sulfate 90 mcg/actuation HFA aerosol inhaler 2 puff inhalation Q6H PRN budesonide-formoterol [Symbicort] 160-4.5 mcg/actuation HFA aerosol inhaler 2 puff inhalation BID nitroglycerin 0.3 mg tablet, sublingual 0.3 mg sublingual Q5M PRN Rx Instructions: do not exceed 3 doses per episode levothyroxine 75 mcg capsule 75 mcg PO DAILY montelukast [Singulair] 10 mg tablet 10 mg PO DAILY pregabalin [Lyrica] 300 mg capsule 300 mg PO BID isosorbide mononitrate 30 mg tablet extended release 24 hr 30 mg PO DAILY Rx Instructions: 2 tabs daily hydrochlorothiazide 12.5 mg tablet 12.5 mg PO DAILY furosemide [Lasix] 20 mg tablet 10 mg PO QAM diclofenac sodium 1 % gel 2 g topical QID Rx Instructions: apply to single elbow, wrist or hand; for hand includes palm/fingers/back of hand lidocaine 5 % adhesive patch,medicated 3 patch topical DAILY Rx Instructions: leave on most painful area for up to 12 hrs simvastatin 20 mg tablet 20 mg PO DAILY aspirin 81 mg tablet,delayed release (DR/EC) 81 mg PO DAILY meclizine 25 mg tablet 25 mg PO DAILY Interventions: ED Discharge Assessment Last Done: 01/22/24 22:46 Discharge Date/Time: 01/22/24 22:46 Print Language: Divehi
--- NOTE | 2024-01-22 19:06 | ECG_ITS ---
Test Reason : CHEST TIGHTNESS Blood Pressure : / mmHG Vent. Rate : 072 BPM Atrial Rate : 072 BPM P-R Int : 160 ms QRS Dur : 082 ms QT Int : 368 ms P-R-T Axes : 019 004 099 degrees QTc Int : 402 ms Normal sinus rhythm Nonspecific ST and T wave abnormality Abnormal ECG When compared with ECG of 23-OCT-2023 15:24, Nonspecific T wave abnormality, worse in Lateral leads Referred By: Andreina Duke Electronically Signed By:VANIA KAPLAN MD
[2024-01-22 19:36] LABS: Basophils Absolute Auto 0.1 X10*3/uL (0.0-0.2); Basophils Percent Auto 1.4 % (0-2); Eosinophils Absolute Auto 0.1 X10*3/uL (0.0-0.4); Eosinophils Percent Auto 1.4 % (0-4); Hematocrit 43.3 % (37.0-47.0); Hemoglobin 14.6 g/dl (12.0-16.0); Imm Gran Abs Auto 0.01 X10*3/uL (0.00-0.03); Imm Gran Pct Auto 0.1 % (0.0-0.4); Lymphocytes Absolute Auto 2.1 X10*3/uL (1.2-4.9); MANUAL DIFF FLAG NO; Mean Corpuscular HGB Conc 33.7 g/dl (31.0-35.0); Mean Corpuscular Hemoglobin 29.8 pg (27.0-33.0); Mean Corpuscular Volume 88.4 fL (80.0-98.0); Mean Platelet Volume 9.7 fL (9.4-12.3); Monocytes Absolute Auto 0.4 X10*3/uL (0.1-1.2); Monocytes Percent Auto 5.3 % (2-11); Neutrophils Absolute Auto 4.7 x10*3/uL (2.0-8.3); Neutrophils Percent Auto 63.8 % (45-73); Platelet Count 283 X10*3/uL (160-400); Red Cell Distribution Width 14.5 % (11.0-16.0); White Blood Count 7.4 X10*3/uL (4.8-10.8)
[2024-01-22 19:52] LABS: Alanine Aminotransferase 44 U/L (0-31); Albumin Level 4.5 g/dL (3.5-5.0); Alkaline Phosphatase 144 U/L (39-117); Anion Gap 13 (12-20); Aspartate Amino Transferase 30 U/L (5-31); Bilirubin Total 0.2 mg/dL (0.0-1.0); Blood Urea Nitrogen 10 mg/dL (9-16); Calcium 9.7 mg/dL (8.4-10.2); Carbon Dioxide 26 mmol/L (22-29); Chloride 107 mmol/L (96-108); Estimated Glomerular Filt Rate > 60; Glucose Random 98 mg/dL (60-115); Magnesium 2.2 mg/dL (1.6-2.6); Potassium 4.2 mmol/L (3.3-5.1); Sodium 142 mmol/L (135-145); Total Protein 7.8 g/dL (6.5-8.0)
[2024-01-22 20:01] LABS: Troponin-I High Sensitivity < 2.7 ng/L (<3.5-17.0)
[2024-01-22 20:16] LABS: Influenza A PCR NEGATIVE (Negative); Influenza B PCR NEGATIVE (Negative); Resp Syncy Virus RNA Qual PCR NEGATIVE (Negative); SARS COV2 PCR INHOUSE NEGATIVE (Negative)
[2024-01-22 21:55] VITALS: BP 147/91; PULSE 71; RESP 18; TEMP 36.9; O2SAT 97
[2024-01-22] MEDS: Ondansetron ODT 4 MG TAB.RAPDIS TRANSLINGU (22:40)
[2024-01-22] MEDS: Morphine Sulfate Immed Release 15 MG TABLET PO (22:40)
[2024-01-22 22:46] VITALS: BP 148/90; PULSE 76; RESP 20; TEMP 36.6; O2SAT 97
== END 2024-01-22 22:46 | disposition home or self-care (01) ==
PROVIDERS: Physician Assistant Medical; Emergency Provider Internal Medicine; PCP Internal Medicine Geriatric Medicine
DX: G43.909 Migraine, unspecified, not intractable, without status migrainosus (principal); K52.9 Noninfective gastroenteritis and colitis, unspecified; I10 Essential (primary) hypertension; J44.9 Chronic obstructive pulmonary disease, unspecified; Z03.818 Encounter for observation for suspected exposure to other biological agents ruled out
CPT/HCPCS: 0241U; 70450; 72125; 80053; 83735; 84484; 85025; 93005; 99284

== ENCOUNTER → 2024-01-22 19:06 | Outpatient (BNV) | payer MEDICARE, MEDICAID, SELFPAY | PROVIDERS: Emergency Provider Internal Medicine; PCP Internal Medicine Geriatric Medicine; Visit Provider Internal Medicine Cardiovascular Disease | DX: R07.9 Chest pain, unspecified (principal) | CPT/HCPCS: 93010 ==

== ENCOUNTER 2024-03-19 15:07 | Outpatient (REF) | payer MEDICARE, SELFPAY ==
[2024-03-22 00:14] LABS: TS Negative Control Passed; TS Panel A 0; TS Panel B 0; TS Positive Control Passed; TSpotTB Negative (Negative)
== END 2024-03-19 15:08 | disposition home or self-care (01) ==
LOC: HO.HHCL 15:07
PROVIDERS: Visit Provider Internal Medicine Geriatric Medicine
DX: Z11.1 Encounter for screening for respiratory tuberculosis (principal)
CPT/HCPCS: 36415; 86481

== ENCOUNTER 2024-04-07 13:03 | Outpatient (REF) | payer MEDICARE, SELFPAY ==
[2024-04-07 16:21] LABS: MANUAL DIFF FLAG NO
[2024-04-07 16:31] LABS: Basophils Absolute Auto 0.1 X10*3/uL (0.0-0.2); Basophils Percent Auto 1.5 % (0-2); Eosinophils Absolute Auto 0.1 X10*3/uL (0.0-0.4); Eosinophils Percent Auto 1.3 % (0-4); Hematocrit 42.5 % (37.0-47.0); Hemoglobin 13.7 g/dl (12.0-16.0); Imm Gran Abs Auto 0.02 X10*3/uL (0.00-0.03); Imm Gran Pct Auto 0.3 % (0.0-0.4); Lymphocytes Absolute Auto 1.9 X10*3/uL (1.2-4.9); Lymphocytes Percent Auto 30.2 % (20-40); Mean Corpuscular HGB Conc 32.2 g/dl (31.0-35.0); Mean Corpuscular Hemoglobin 29.9 pg (27.0-33.0); Mean Corpuscular Volume 92.8 fL (80.0-98.0); Mean Platelet Volume 10.7 fL (9.4-12.3); Monocytes Absolute Auto 0.3 X10*3/uL (0.1-1.2); Monocytes Percent Auto 4.2 % (2-11); Neutrophils Absolute Auto 3.9 x10*3/uL (2.0-8.3); Neutrophils Percent Auto 62.5 % (45-73); Platelet Count 268 X10*3/uL (160-400); Red Blood Count 4.58 X10*6/uL (4.20-5.50); Red Cell Distribution Width 14.3 % (11.0-16.0); White Blood Count 6.2 X10*3/uL (4.8-10.8)
[2024-04-07 16:56] LABS: Alanine Aminotransferase 20 U/L (0-31); Albumin Level 4.3 g/dL (3.5-5.0); Alkaline Phosphatase 107 U/L (39-117); Anion Gap 11 (12-20); Aspartate Amino Transferase 21 U/L (5-31); Bilirubin Total 0.3 mg/dL (0.0-1.0); Blood Urea Nitrogen 12 mg/dL (9-16); Carbon Dioxide 28 mmol/L (22-29); Chloride 106 mmol/L (96-108); Estimated Glomerular Filt Rate > 60; Glucose Random 158 mg/dL (60-115); Lipase 15 U/L (8-78); Potassium 3.5 mmol/L (3.3-5.1); Sodium 141 mmol/L (135-145); Total Protein 7.2 g/dL (6.5-8.0)
== END 2024-04-07 13:04 | disposition home or self-care (01) ==
LOC: HO.HHCL 13:03
PROVIDERS: Visit Provider Internal Medicine Geriatric Medicine
DX: R11.2 Nausea with vomiting, unspecified (principal); R19.7 Diarrhea, unspecified; R10.2 Pelvic and perineal pain
CPT/HCPCS: 36415; 80053; 83690; 85025

== ENCOUNTER 2024-04-13 12:05 | Outpatient (REF) | payer MEDICARE, SELFPAY ==
[2024-04-13 14:01] LABS: Estimated Average Glucose 105 mg/dL; Hemoglobin A1c % 5.3 % (<6.0)
== END 2024-04-13 12:06 | disposition home or self-care (01) ==
LOC: HO.HHCL 12:05
PROVIDERS: Visit Provider Internal Medicine Geriatric Medicine
DX: R73.9 Hyperglycemia, unspecified (principal)
CPT/HCPCS: 36415; 83036

== ENCOUNTER 2024-04-27 13:08 | Inpatient (IN) | payer MEDICARE, MEDICAID, SELFPAY ==
--- NOTE | ~2024-04-27 | XR_ITS ---
EXAMINATION: XR CHEST CLINICAL INFORMATION: Pain. COMPARISON: Chest radiograph dated 10/23/2023. TECHNIQUE: PA and lateral views of the chest. FINDINGS: The lungs are clear. The cardiomediastinal silhouette is normal in size. There is no pleural effusion or pneumothorax. No acute osseous abnormality. XR/XR chest 2V IMPRESSION: No acute cardiopulmonary findings. Electronically signed by: Wily Hampton MD 04/27/2024 03:18 PM EDT
--- NOTE | 2024-04-27 13:10 | ECG_ITS ---
Test Reason : CP Blood Pressure : / mmHG Vent. Rate : 074 BPM Atrial Rate : 074 BPM P-R Int : 158 ms QRS Dur : 084 ms QT Int : 436 ms P-R-T Axes : 004 008 073 degrees QTc Int : 483 ms Normal sinus rhythm Nonspecific T wave abnormality Abnormal ECG When compared with ECG of 22-JAN-2024 19:21, Nonspecific T wave abnormality, improved in Lateral leads QT has lengthened Referred By: Terell Mackey Electronically Signed By:BINA DINERO
[2024-04-27 13:28] VITALS: BP 105/63; PULSE 74; RESP 16; TEMP 36.8; O2SAT 93; BMI 25.0
--- NOTE | 2024-04-27 13:28 | ED_ITS ---
HPI - General Adult General Chief complaint: Chest Pain Stated complaint: Chest pain, heaviness L side of body Time Seen by Provider: 04/27/24 23:02 Source: patient Mode of arrival: ambulatory Limitations: no limitations History of Present Illness ED Provider: Dr. Wale Marina HPI narrative: 63-year-old female with a history of hypertension, hyperlipidemia, asthma/COPD, stroke x2, myocardial infarction x2 with her last TN 20 years prior while she was in [place] who presents emergency department for evaluation of intermittent chest pain x1 month with symptoms getting worse x3 days. The patient describes the pain as a heaviness in the center of her chest. The pain can come on with rest and exertion but she states that she was not very mobile and has to walk with a walker. She states that when she gets the chest pain it often lasts 30 minutes and she will have associated diaphoresis, nausea, vomiting, pain that radiates to her neck and down her arms with left greater than right. She states she takes 2 nitroglycerins, aspirin and oxycodone and this will often make her pain go away. She states that over the last 3 days she has been getting the chest pain more frequently. She states that she was woken up this morning at 03:00 hours with the heaviness in her chest which was 10/10, she was diaphoretic and the pain did radiate to her neck and arms. She states that she took nitroglycerin with no relief of her pain,therefore she came to the emergency department this afternoon for evaluation. She states that while she was here in the emergency department, her chest pain got worse and she took 1 of her own nitroglycerins without telling her nurse and this did improve her pain. At the time my evaluation she states that the pain is ?almost? completely resolved. Patient states that she was at [facility] Emergency Department several days prior for evaluation of her chest pain. She states that the initial doctor that evaluated her, told her that she was going to be admitted to the hospital but the next doctor that saw her discharged her to home. I did obtain a record from [facility] for the patient's emergency department visit from 04/18/2024. HPI does document progressive worsening of her exertional chest pain associated with shortness of breath over the last month and a half. Patient was COVID positive at the time of her visit, EKG revealed no significant changes and patient had 2 negative troponins therefore she was discharged home. Related Data Home Medications ?Medication ?Instructions ?Recorded ?Confirmed albuterol sulfate 90 mcg/actuation 2 puff inhalation Q6H PRN 02/28/21 04/28/24 aerosol inhaler Shortness Of Breath Or Wheezing aspirin 81 mg tablet,delayed 81 mg PO DAILY 02/28/21 04/28/24 release diclofenac sodium 1 % topical gel 2 g topical QID 02/28/21 04/28/24 furosemide 20 mg tablet (Lasix) 10 mg PO DAILY 02/28/21 04/28/24 hydrochlorothiazide 12.5 mg tablet 12.5 mg PO DAILY 02/28/21 04/28/24 lidocaine 5 % topical patch 3 patch topical DAILY PRN Pain 02/28/21 04/28/24 meclizine 25 mg tablet 25 mg PO DAILY 02/28/21 04/28/24 nitroglycerin 0.3 mg sublingual 0.3 mg sublingual Q5M PRN Chest 02/28/21 04/28/24 tablet Pain simvastatin 20 mg tablet 20 mg PO DAILY 02/28/21 04/28/24 albuterol sulfate 2.5 mg/3 mL 2.5 mg inhalation TID PRN 05/24/21 04/28/24 (0.083 %) solution for nebulization Shortness Of Breath Or Wheezing clonazepam 1 mg tablet 1 mg PO BID PRN panic attack 05/24/21 04/28/24 docusate sodium 100 mg capsule 100 mg PO BEDTIME PRN Constipation 05/24/21 04/28/24 folic acid 1 mg tablet 1 mg PO DAILY 05/24/21 04/28/24 omeprazole 20 mg capsule,delayed 40 mg PO DAILY 05/24/21 04/28/24 release tiotropium bromide 18 mcg capsule 1 cap inhalation DAILY 05/24/21 04/28/24 with inhalation device (Spiriva with HandiHaler) topiramate 25 mg tablet 25 mg PO BID 05/24/21 04/28/24 amlodipine 2.5 mg tablet 5 mg PO DAILY 04/28/24 04/28/24 budesonide-formoterol HFA 160 2 puff inhalation BID 04/28/24 04/28/24 mcg-4.5 mcg/actuation aerosol inhaler (Symbicort) diphenhydramine HCl 25 mg capsule 25 mg PO DAILY PRN Sleep 04/28/24 04/28/24 (Banophen) fluticasone propionate 50 2 spray intranasal DAILY 04/28/24 04/28/24 mcg/actuation nasal spray,suspension hydrocortisone 10 mg tablet 10 mg BID 04/28/24 04/28/24 levothyroxine 150 mcg tablet 150 mcg PO DAILY@0600 04/28/24 04/28/24 oxycodone 15 mg tablet 15 mg PO Q4H PRN severe pain 04/28/24 04/28/24 phenytoin sodium extended 100 mg 200 mg PO BID 04/28/24 04/28/24 capsule pregabalin 300 mg capsule 300 mg PO BID 04/28/24 04/28/24 sertraline 25 mg tablet 25 mg PO DAILY 04/28/24 04/28/24 Previous Rx's ?Medication ?Instructions ?Recorded cyclobenzaprine 10 mg tablet 10 mg PO TID PRN pain #10 tabs 06/22/20 lisinopril 10 mg tablet 10 mg PO DAILY #30 tabs 07/24/20 loperamide 2 mg tablet 2 mg PO Q4H PRN loose stool #14 07/09/21 (Anti-Diarrheal (loperamide)) tabs Allergies Allergy/AdvReac Type Severity Reaction Status Date / Time Penicillins [PENICILLINS] Allergy Severe HIVES Verified 04/27/24 13:30 amoxicillin [AMOXICILLIN] Allergy Intermediate HIVES Verified 04/27/24 13:30 ciprofloxacin [From Cipro] Allergy Intermediate Hives Verified 04/27/24 13:30 acetaminophen [From Tylox] Allergy Unknown Rash, Verified 04/27/24 13:30 Nausea and Vomiting ibuprofen [From Motrin] Allergy Unknown Gastrointestinal Verified 04/27/24 13:30 Upset latex [LATEX] Allergy Unknown RASH Verified 04/27/24 13:30 penicillin V Allergy Unknown rash Verified 04/27/24 13:30 Review of Systems 2 Review of Systems: Yes all other systems are reviewed and are negative [facility] Past Medical History [facility] Narrative: Social history: She states she smokes 5 cigarettes per day. She denies alcohol use. She denies drug use. Medical History Overactive bladder Urinary retention Migraines Seizure Sleep apnea Fibromyalgia HTN (hypertension) Hyperthyroidism COPD (chronic obstructive pulmonary disease) Asthma Surgical History Hx of hysterectomy Hx of tubal ligation Hx of section Family History Family History Mother Diabetes HTN (hypertension) Heart failure Maternal Aunt Breast cancer Maternal Grandmother Breast cancer Social History Social History Alcohol intake: never Patient Tobacco Use Status: Current everyday Tobacco user Cigarettes Per Day: 10 Years Smoked: 30 Smoked in Last 30 Days: Yes Use of substances other than those prescribed or required for medical reasons: No Substance Use Type: Prescription Drugs Advance Directives: No Advance Directives Information Provided: No Physical Exam ED Vital Signs: Vital Signs - 24 hr 04/27/24 13:28 04/27/24 21:51 Temperature 98.3 F 98.4 F Pulse Rate 74 65 Respiratory Rate 16 14 Blood Pressure 105/63 156/79 H Pulse Oximetry 93 95 Oxygen Delivery Method Room Air Room Air BMI result Body Mass Index 40.4 Vital signs were normal. Exam: General: Awake, alert in no distress Head: Normocephalic, atraumatic EENT: PERRL, Lids normal, sclera normal, conjunctiva normal, nose normal , ears normal, throat without erythema or exudates Neck: Supple, no adenopathy Lung: breath sounds symmetric, no wheezing, rales or rhonchi Chest: symmetric movement, nontender Heart: regular rate and rhythm, normal S1, S2 no murmurs or rubs Abdomen: Obese, soft, non-tender, nondistended, normal bowel sounds Back: no vertebral tenderness, no CVAT Extremities: no deformities, moves all extremities symmetrically Neuro: Awake, alert, oriented, normal speech, cranial nerves intact, moves all extremities symmetrically Psych: Pleasant, cooperative Course Course Course Narrative: RME, this is a rapid medical exam performed by Hunter Mackey please refer to primary provider for complete H&P- 63 year old female presents for evaluation of left sided chest pain and headaches on and off for a month. She reports that she was admitted to [facility] and discharged 3 days ago. Plan for cardiac workup Medications Administered Generic Name Dose Route Start Last Admin Trade Name Freq PRN Reason Stop Dose Admin Heparin Sodium/Sodium Chloride 25,000 unit in 250 mls @ 0 mls/hr 04/28/24 02:00 04/28/24 02:28 Heparin Sodium,Porcine/1/2ns IVCONT 8.81 units/kg/hr .Q0M HELEN 10 mls/hr Administration Protocol Per Protocol Nitroglycerin 0.4 mg 04/28/24 05:26 04/28/24 06:00 Nitroglycerin 0.4 Mg Tab.Subl SUBLINGUAL 0.4 mg [id number] PRN Administration Chest Pain Sodium Chloride 3 ml 04/28/24 08:00 04/28/24 08:12 0.9 % Sodium Chloride Flush 3 Ml Syringe IVFLUSH Not Given QSHIFT HELEN Discontinued Medications Generic Name Dose Route Start Last Admin Trade Name Freq PRN Reason Stop Dose Admin Aspirin 324 mg 04/28/24 01:58 04/28/24 02:24 Aspirin 81 Mg Tab.Chew PO 04/28/24 01:59 324 mg ONCE ONE Administration Heparin Sodium (Porcine) 4,000 unit 04/28/24 01:58 04/28/24 02:24 Heparin Sodium,Porcine 5,000 Unit/Ml Vial IVPUSH 04/28/24 01:59 4,000 unit ONCE ONE Administration Morphine Sulfate 4 mg 04/28/24 02:06 04/28/24 02:25 Morphine Sulfate 4 Mg/Ml Cartridge IVPUSH 04/28/24 02:07 4 mg ONCE STA Administration Protocol Oxycodone HCl 5 mg 04/28/24 05:26 04/28/24 05:53 Oxycodone Hcl Immed Release 5 Mg Tablet PO 04/28/24 05:27 5 mg ONCE ONE Administration Medical Decision Making Medical Decision Making MDM Narrative: 63-year-old female with a history of morbid obesity, hypertension, hyperlipidemia, asthma/COPD, stroke x2, myocardial infarction x2 with her last [place] 20 years prior while she was in [place] who presents emergency department for evaluation of intermittent chest pain x1 month with symptoms getting worse over the past 3 days. She describes the pain is a heaviness in the center of her chest associated with diaphoresis, nausea, vomiting with pain radiating to her neck, arms bilaterally left greater than right. Pain will last 30 minutes in his relieved by 2 nitroglycerins, aspirin and oxycodone. She states that the pain has been coming more frequently. Pain woke her up from sleep at 03:00 hours this morning and was not relieved by her nitroglycerin, aspirin oxycodone. She states that while she has been here in the emergency department she did take her own nitroglycerin and this relieved her pain. Physical examination revealed normal vital signs, she is morbidly obese otherwise exam was unremarkable. Differential diagnosis: ?Includes but is not limited to myocardial infarction, myocardial ischemia, unstable angina, musculoskeletal pain, costochondritis, anemia, electrolyte abnormalities Following evaluation was ordered: CBC, CMP, magnesium, PT/INR, BNP, lipase, troponin, COVID-19, urinalysis, chest x-ray x2 view, EKG Course: 00:12 My interpretation patient's laboratory evaluation as follows: CBC was normal. Glucose elevated 135. LFTs were normal. High sensitive troponin I was below detectable limits at 2.7. Lipase was normal. COVID-19 was negative. Chest x-ray did not reveal any acute disease, EKG did not reveal any acute abnormalities. Given the change in the patient's chest pain over the last month with worsening symptoms over the past 3 days (chest pain has been coming on more frequently and she was required nitroglycerin and aspirin to relieve her pain) concerned the patient may have unstable angina/acute coronary syndrome. I will discuss admission with the covering carbon paper machine operator. 01:51 I did discuss the patient over tiger text with the covering carbon paper machine operator, Dr. Pineda and the patient will be admitted to the hospitalist service with cardiology consult for further evaluation of her chest pain. Patient was given aspirin 124 mg orally to chew and ordered to get heparin bolus and heparin drip 02:05 I did discuss admission over tiger text with the covering hospitalist, Dr. Childers and the patient will be admitted to the hospitalist service for further management. Admission/Observation Consideration of admission/observation: Escalation of care including admission/observation considered Lab Data MDM Lab Attestation statement: I reviewed the patient's lab results. 04/28/24 06:27 04/28/24 06:27 Labs: Lab Results 04/27/24 Range/Units 14:26 WBC 7.7 (4.8-10.8) X10*3/uL RBC 4.52 (4.20-5.50) X10*6/uL Hgb 13.6 (12.0-16.0) g/dl Hct 42.1 (37.0-47.0) % MCV 93.1 (80.0-98.0) fL MCH 30.1 (27.0-33.0) pg MCHC 32.3 (31.0-35.0) g/dl RDW 14.6 (11.0-16.0) % Plt Count 274 (160-400) X10*3/uL MPV 10.1 (9.4-12.3) fL Immature Gran % (Auto) 0.5 H (0.0-0.4) % Neut % (Auto) 60.7 (45-73) % Lymph % (Auto) 30.8 (20-40) % [place] % (Auto) 5.8 (2-11) % Eos % (Auto) 1.4 (0-4) % Baso % (Auto) 0.8 (0-2) % Lymph # (Auto) 2.4 (1.2-4.9) X10*3/uL [place] # (Auto) 0.5 (0.1-1.2) X10*3/uL Eos # (Auto) 0.1 (0.0-0.4) X10*3/uL Baso # (Auto) 0.1 (0.0-0.2) X10*3/uL Abs Immat Gran (auto) 0.04 H (0.00-0.03) X10*3/uL Absolute Neuts (auto) 4.7 (2.0-8.3) x10*3/uL Absolute Nucleated RBC 0.000 (0.0-0.012) X10*3/uL Nucleated RBC % (auto) 0.0 (0.0-0.2) /100WBC PT 10.5 L (11.1-13.3) SEC INR 0.9 (0.9-1.1) APTT 33.6 (26.0-36.8) SEC Sodium 140 (135-145) mmol/L Potassium 3.9 (3.3-5.1) mmol/L Chloride 105 (96-108) mmol/L Carbon Dioxide 26 (22-29) mmol/L Anion Gap 13 (12-20) BUN 8 L (9-16) mg/dL Creatinine 0.70 (0.5-1.4) mg/dL Estim Creat Clear Calc 75.0 Estimated GFR > 60 Random Glucose 135 H (60-115) mg/dL Calcium 9.3 D (8.4-10.2) mg/dL Magnesium 2.2 (1.6-2.6) mg/dL Total Bilirubin 0.2 (0.0-1.0) mg/dL AST 22 (5-31) U/L ALT 36 H (0-31) U/L Alkaline Phosphatase 110 (39-117) U/L Troponin I High Sens < 2.7 (<3.5-17.0) ng/L B-Natriuretic Peptide 11 (<100) pg/mL Total Protein 7.1 (6.5-8.0) g/dL Albumin 4.2 (3.5-5.0) g/dL Lipase 25 (8-78) U/L COVID-19 (DORON) Negative (Negative) COVID-19 Clin Com See Note Independent Interpretation I performed an independent interpretation of an: EKG and Plain X-Ray Interpretation: My independent interpretation patient's 12 EKG done at 13:16 hours is as follows: Normal sinus rhythm rate of 74, normal RI interval, QRS duration and prolonged QTC interval of 483 milliseconds. Q-wave in lead 3, RR prime V1, no ST segment elevation, no ST segment depression, no PACs, no PVCs. When compared to the EKG dated 01/22/2024, prolonged QTC interval is new, Q-wave in 3 and RR complex in V1 are old. No other significant changes compared to the previous. Radiology Impression Discussion of test interpretation with radiology: I have reviewed the radiologist's reading. Radiologist Impression: XR chest 2V IMPRESSION: No acute cardiopulmonary findings. Dictated By: Wily Hampton MD Critical Care Time Critical Care Time Critical Care Time: Yes Total Critical Care Time: 35 Attestation: Critical Care: The patient was critically ill with a high probability of imminent or life threatening deterioration. I spent greater than 30 minutes of discontinuous time evaluating the patient,delivering critical care at the bedside, discussing and evaluating pertinent data with consultants. Critical care time does not include time spent performing separately billable procedures or teaching. Total time spent performing critical care was 35 minutes. Discharge Plan Discharge Clinical Impression: Acute coronary insufficiency syndrome Patient Disposition: Admitted As Inpatient
[2024-04-27 14:41] LABS: MANUAL DIFF FLAG NO
[2024-04-27 14:43] LABS: Basophils Absolute Auto 0.1 X10*3/uL (0.0-0.2); Basophils Percent Auto 0.8 % (0-2); Eosinophils Absolute Auto 0.1 X10*3/uL (0.0-0.4); Eosinophils Percent Auto 1.4 % (0-4); Hematocrit 42.1 % (37.0-47.0); Hemoglobin 13.6 g/dl (12.0-16.0); Imm Gran Abs Auto 0.04 X10*3/uL (0.00-0.03); Imm Gran Pct Auto 0.5 % (0.0-0.4); Lymphocytes Absolute Auto 2.4 X10*3/uL (1.2-4.9); Lymphocytes Percent Auto 30.8 % (20-40); Mean Corpuscular HGB Conc 32.3 g/dl (31.0-35.0); Mean Corpuscular Hemoglobin 30.1 pg (27.0-33.0); Mean Corpuscular Volume 93.1 fL (80.0-98.0); Mean Platelet Volume 10.1 fL (9.4-12.3); Monocytes Absolute Auto 0.5 X10*3/uL (0.1-1.2); Monocytes Percent Auto 5.8 % (2-11); Neutrophils Absolute Auto 4.7 x10*3/uL (2.0-8.3); Neutrophils Percent Auto 60.7 % (45-73); Platelet Count 274 X10*3/uL (160-400); Red Blood Count 4.52 X10*6/uL (4.20-5.50); Red Cell Distribution Width 14.6 % (11.0-16.0); White Blood Count 7.7 X10*3/uL (4.8-10.8)
[2024-04-27 14:51] LABS: INTERNATIONAL NORM RATIO 0.9 (0.9-1.1); Prothrombin Time 10.5 SEC (11.1-13.3)
[2024-04-27 14:55] LABS: COVID-19 Test Negative (Negative); IDNOW Serial# 08D9AD1C
[2024-04-27 14:58] LABS: Alanine Aminotransferase 36 U/L (0-31); Albumin Level 4.2 g/dL (3.5-5.0); Alkaline Phosphatase 110 U/L (39-117); Anion Gap 13 (12-20); Aspartate Amino Transferase 22 U/L (5-31); Bilirubin Total 0.2 mg/dL (0.0-1.0); Blood Urea Nitrogen 8 mg/dL (9-16); Calcium 9.3 mg/dL (8.4-10.2); Carbon Dioxide 26 mmol/L (22-29); Chloride 105 mmol/L (96-108); Estimated Glomerular Filt Rate > 60; Glucose Random 135 mg/dL (60-115); Lipase 25 U/L (8-78); Magnesium 2.2 mg/dL (1.6-2.6); Potassium 3.9 mmol/L (3.3-5.1); Sodium 140 mmol/L (135-145); Total Protein 7.1 g/dL (6.5-8.0)
[2024-04-27 15:03] LABS: B Type Natriuretic Peptide 11 pg/mL (<100)
[2024-04-27 15:08] LABS: Troponin-I High Sensitivity < 2.7 ng/L (<3.5-17.0)
[2024-04-27 21:51] VITALS: BP 156/79; PULSE 64; PULSE 65; RESP 14; TEMP 36.9; O2SAT 95
--- NOTE | 2024-04-27 21:52 | MHC.EDTECH ---
pt brought to bed 22 from by charge machine operator. pt changed into hospital gown, vital signs taken, placed on draw frame operator and pulse oximetry. pt resting comfortably resp even and unlabored. Primary RN at bedside.
[2024-04-28 00:14] VITALS: BMI 40.4
--- NOTE | 2024-04-28 02:06 | ECG_ITS ---
Test Reason : CP Blood Pressure : / mmHG Vent. Rate : 071 BPM Atrial Rate : 071 BPM P-R Int : 164 ms QRS Dur : 082 ms QT Int : 448 ms P-R-T Axes : 039 032 051 degrees QTc Int : 486 ms Normal sinus rhythm Nonspecific ST and T wave abnormality Abnormal ECG When compared with ECG of 27-APR-2024 13:16, No significant change was found Referred By: Wale Marina Electronically Signed By:BINA DINERO
[2024-04-28 02:15] LABS: Partial Thromboplastin Time 33.6 SEC (26.0-36.8)
--- NOTE | 2024-04-28 02:23 | PM.IMHP ---
History of Present Illness Date of Service: 04/28/24 Chief Complaint: Chest pain This is a 63-year-old female with pertinent history of CVA x2, CAD with [place] x2, hypertension, mixed hyperlipidemia, overactive bladder, mood disorder, COPD not on home oxygen, MELIA not on CPAP, hypothyroidism, migraine, fibromyalgia who presents to the emergency department for evaluation of chest pain. Of note, patient was seen at [facility] on 04/18/2024 for chest pain and dyspnea worse with exertion. Patient tested positive for COVID-19 and was discharged home after 2- troponins. Patient states she has had symptoms for about a month where she has midsternal chest discomfort that radiates to the left shoulder and is associated with sweating, nausea. Exertion makes it worse and it is relieved with rest lasting for about 20-30 minutes. Patient states that the chest discomfort has been worse and progressive over the last 3 days and she has been having chest discomfort even with rest which is relieved with nitroglycerin and oxycodone. Patient woke up with chest discomfort on the day of presentation which was relieved with nitroglycerin in the ER. No fever, chill, palpitations, abdominal pain, changes in urinary or bowel habits. In the emergency department, cardiology was consulted and patient was initiated on IV heparin. Review of Systems Cardiovascular: Cardiovascular: Reports chest pain, Reports chest pain at rest and Reports chest pain with activity Gastrointestinal: Gastrointestinal: Reports no additional gastrointestinal complaints Genitourinary: Genitourinary: Reports no additional female genitourinary complaints [facility] Medical History Overactive bladder Urinary retention Migraines Seizure Sleep apnea Fibromyalgia HTN (hypertension) Hyperthyroidism COPD (chronic obstructive pulmonary disease) Asthma Family History Mother Diabetes HTN (hypertension) Heart failure Maternal Aunt Breast cancer Maternal Grandmother Breast cancer Surgical History Hx of hysterectomy Hx of tubal ligation Hx of section Social History Alcohol intake: never Patient Tobacco Use Status: Current everyday Tobacco user Cigarettes Per Day: 10 Years Smoked: 30 Smoked in Last 30 Days: Yes Use of substances other than those prescribed or required for medical reasons: No Substance Use Type: Prescription Drugs Advance Directives: No Advance Directives Information Provided: No Meds Allergies Allergy/AdvReac Type Severity Reaction Status Date / Time Penicillins [PENICILLINS] Allergy Severe HIVES Verified 04/27/24 13:30 amoxicillin [AMOXICILLIN] Allergy Intermediate HIVES Verified 04/27/24 13:30 ciprofloxacin [From Cipro] Allergy Intermediate Hives Verified 04/27/24 13:30 acetaminophen [From Tylox] Allergy Unknown Rash, Verified 04/27/24 13:30 Nausea and Vomiting ibuprofen [From Motrin] Allergy Unknown Gastrointestinal Verified 04/27/24 13:30 Upset latex [LATEX] Allergy Unknown RASH Verified 04/27/24 13:30 penicillin V Allergy Unknown rash Verified 04/27/24 13:30 Active Medications: Current Medications Heparin Sodium (Porcine) (Heparin Sodium,Porcine 5,000 Unit/Ml Vial) 4,500 unit 40 unit/kg (4500 unit) IVPUSH PROTOCOL BOLUS PRN; Protocol PRN Reason: 40 unit/kg - Heparin Protocol Heparin Sodium (Porcine) (Heparin Sodium,Porcine 5,000 Unit/Ml Vial) 9,100 unit 80 unit/kg (9100 unit) IVPUSH PROTOCOL BOLUS PRN; Protocol PRN Reason: 80 unit/kg - Heparin Protocol Heparin Sodium/Sodium Chloride (Heparin Sodium,Porcine/1/2ns) 25,000 unit in 250 mls @ 0 mls/hr IVCONT .Q0M HELEN; Protocol Home Medications ?Medication ?Instructions ?Recorded ?Confirmed ?Last Taken ?Type albuterol sulfate 90 mcg/actuation 2 puff inhalation Q6H PRN 02/28/21 11/26/22 Unknown History aerosol inhaler aspirin 81 mg tablet,delayed 81 mg PO DAILY 02/28/21 11/26/22 Unknown History release budesonide-formoterol HFA 160 2 puff inhalation BID 02/28/21 11/26/22 Unknown History mcg-4.5 mcg/actuation aerosol inhaler (Symbicort) diclofenac sodium 1 % topical gel 2 g topical QID 02/28/21 11/26/22 Unknown History furosemide 20 mg tablet (Lasix) 10 mg PO QAM 02/28/21 11/26/22 Unknown History hydrochlorothiazide 12.5 mg tablet 12.5 mg PO DAILY 02/28/21 11/26/22 Unknown History isosorbide mononitrate 30 mg 30 mg PO DAILY 02/28/21 11/26/22 Unknown History tablet,extended release 24 hr levothyroxine 75 mcg capsule 75 mcg PO DAILY 02/28/21 11/26/22 Unknown History lidocaine 5 % topical patch 3 patch topical DAILY 02/28/21 11/26/22 Unknown History meclizine 25 mg tablet 25 mg PO DAILY 02/28/21 11/26/22 Unknown History montelukast 10 mg tablet 10 mg PO DAILY 02/28/21 11/26/22 Unknown History (Singulair) nitroglycerin 0.3 mg sublingual 0.3 mg sublingual Q5M PRN 02/28/21 11/26/22 Unknown History tablet pregabalin 300 mg capsule (Lyrica) 300 mg PO BID 02/28/21 11/26/22 Unknown History simvastatin 20 mg tablet 20 mg PO DAILY 02/28/21 11/26/22 Unknown History albuterol sulfate 2.5 mg/3 mL mg inhalation TID 05/24/21 11/26/22 Unknown History (0.083 %) solution for nebulization clonazepam 1 mg tablet 1 mg PO BID PRN panic attack 05/24/21 11/26/22 Unknown History dicyclomine 10 mg capsule 10 mg PO QID 05/24/21 11/26/22 Unknown History docusate sodium 100 mg capsule 100 mg PO BEDTIME PRN 05/24/21 11/26/22 Unknown History folic acid 1 mg tablet 1 mg PO DAILY 05/24/21 11/26/22 Unknown History levothyroxine 100 mcg tablet 100 mcg PO DAILY 05/24/21 11/26/22 Unknown History meloxicam 15 mg tablet 15 mg PO DAILY 05/24/21 11/26/22 Unknown History nicotine 14 mg/24 hr daily 1 patch topical DAILY 05/24/21 11/26/22 Unknown History transdermal patch omeprazole 20 mg capsule,delayed 40 mg PO DAILY 05/24/21 11/26/22 Unknown History release theophylline 400 mg 400 mg PO DAILY 05/24/21 11/26/22 Unknown History capsule,extended release 24 hr ([place]-24) tiotropium bromide 18 mcg capsule 1 cap inhalation DAILY 05/24/21 11/26/22 Unknown History with inhalation device (Spiriva with HandiHaler) topiramate 25 mg tablet 25 mg PO 05/24/21 11/26/22 Unknown History Physical Exam Vital Signs and Narrative: Vital Signs: Last Vital Signs Temp 98.4 F 04/27/24 21:51 Pulse 65 04/27/24 21:51 Resp 14 04/27/24 21:51 BP 156/79 H 04/27/24 21:51 Pulse Ox 95 04/27/24 21:51 O2 Del Method Room Air 04/27/24 21:51 BMI result Body Mass Index 40.4 Middle-aged female lying in bed in no distress Neck supple, no JVD Regular rate and rhythm, S1-S2 heard Decreased breath sound at bases Abdomen soft nontender, no guarding, no rigidity Patient is awake, alert and oriented to self, place, time and person ; no focal motor deficit Psych: Normal mood No pedal edema Results Labs 04/27/24 14:26 04/27/24 14:26 Labs: Laboratory Results - last 24 hr 04/27/24 14:26 MCV 93.1 MCH 30.1 MCHC 32.3 RDW 14.6 Plt Count 274 MPV 10.1 Immature Gran % (Auto) 0.5 H Neut % (Auto) 60.7 Lymph % (Auto) 30.8 [place] % (Auto) 5.8 Eos % (Auto) 1.4 Baso % (Auto) 0.8 Lymph # (Auto) 2.4 [place] # (Auto) 0.5 Eos # (Auto) 0.1 Baso # (Auto) 0.1 Abs Immat Gran (auto) 0.04 H Absolute Neuts (auto) 4.7 Absolute Nucleated RBC 0.000 Nucleated RBC % (auto) 0.0 PT 10.5 L INR 0.9 APTT 33.6 Anion Gap 13 Estim Creat Clear Calc 75.0 Estimated GFR > 60 Random Glucose 135 H Calcium 9.3 D Magnesium 2.2 Total Bilirubin 0.2 AST 22 ALT 36 H Alkaline Phosphatase 110 Troponin I High Sens < 2.7 B-Natriuretic Peptide 11 Total Protein 7.1 Albumin 4.2 Lipase 25 COVID-19 (DORON) Negative COVID-19 Clin Com See Note Imaging Radiologist's Impressions: Impressions Chest X-Ray 04/27/24 13:27 IMPRESSION: No acute cardiopulmonary findings. Electronically signed by: Wily Hampton MD 04/27/2024 03:18 PM EDT RP Assessment and Plan (1) Chest pain: Status: Acute Plan This is a 63-year-old female with pertinent history of CVA x2, CAD with [place] x2, hypertension, mixed hyperlipidemia, overactive bladder, mood disorder, COPD not on home oxygen, MELIA not on CPAP, hypothyroidism, migraine, fibromyalgia who presents to the emergency department for evaluation of chest pain. #. Chest pain concerning for unstable angina: Will admit patient with cardiac monitoring. Initiated IV heparin in the ER and given p.o. aspirin. Appreciate cardiology. Obtaining echo. Defer beta-bruna as patient's heart rate in the 60s. Trend troponin #. History of CVA/CAD: On aspirin and statin #. Hypertension: Continue home antihypertensives #. COPD: No exacerbation during admission. Continue home inhaler #. MELIA: States she uses bedtime O2 as she is unable to tolerate CPAP #. Hypothyroidism: On Synthroid #. Obesity: Counseled regarding diet and exercise Med rec pending DVT prophylaxis: IV heparin Full code Admit as inpatient and will require two night minimum hospital stay for IV heparin (as above), which is not possible in a lesser acute setting. Specialist consult pending Quality Stroke Does the patient have a stroke diagnosis?: No VTE Prior VTE?: No VTE Risk Level:: Medical - moderate - high VTE Device Contraindication: Treatment Not Indicated VTE Drug Contraindication: N/A - Med Ordered
[2024-04-28] MEDS: Aspirin 81 MG TAB.CHEW 324 MG PO (02:24)
[2024-04-28] MEDS: Heparin Sodium,Porcine 5,000 UNIT/ML VIAL 4000 UNIT IVPUSH (02:24)
[2024-04-28] MEDS: Morphine Sulfate 4 MG/ML CARTRIDGE IVPUSH (02:25)
[2024-04-28 02:27] VITALS: BP 135/81; PULSE 71; RESP 14; TEMP 36.8; O2SAT 94
[2024-04-28] MEDS: Heparin Sodium,Porcine/1/2NS 25,000 UNIT/250 ML IV.SOLN 10 UNIT IVCONT (02:28)
[2024-04-28 02:33] LABS: Appearance Urine Cloudy; Color Urine Dark Yellow; Glucose Urine UA Negative (Negative); Leukocyte Esterase Urine Negative (Negative); Nitrite Urine Negative (Negative); PH 5.5 (5.0-9.0); Urine Blood Negative (Negative); Urine Ketones Negative (Negative); Urine Protein Negative (Neg-Trace)
[2024-04-28 02:41] LABS: PTT Heparin Drip 33.8 SEC (53-77.9)
[2024-04-28 02:50] LABS: Bacteria Urine 3+ (None Seen); Hyaline Casts Urine 0-2 /LPF (0-2); RBC Urine 0-2 /HPF (0-2); Squamous Epithelial Cell Urine >20 /HPF (0-2); UACC Culture Trigger YES
[2024-04-28 03:06] LABS: Troponin-I High Sensitivity < 2.7 ng/L (<3.5-17.0)
[2024-04-28 03:14] VITALS: BP 104/71; PULSE 112; RESP 20; TEMP 36.7; O2SAT 95
[2024-04-28 05:50] VITALS: BP 133/84; PULSE 66
[2024-04-28] MEDS: Nitroglycerin 0.4 MG TAB.SUBL SUBLINGUAL ×3 (05:50→06:00)
[2024-04-28] MEDS: oxyCODONE HCl Immed Release 5 MG TABLET PO (05:53)
[2024-04-28 06:21] VITALS: BP 114/64; PULSE 65; RESP 13; TEMP 36.7; O2SAT 94
--- NOTE | 2024-04-28 07:00 | CA_ITS ---
Transthoracic Echocardiogram Patient (Last, First, Middle): Annie Estes O Gender: Female Date of : 1960 Age: 63 Procedure Date: 04/28/2024 Procedure Type: Transthoracic Echocardiogram Location: ER Height: 167.64 cm Weight: 113.4 kg BSA: 2.20 m2 Heart Rate: 55 bpm BP: 149 / 72 mmHg Survey Research Associate: SB Referring MD: Bhavna Childers MD Symptoms: ACS Study Quality: Adequate apical window w contrast ECG Rhythm: Sinus Conclusions: - Normal left ventricular size, thickness, and systolic function. The visually estimated ejection fraction is between 60-65%. There is evidence of regional wall motion abnormalities. Diastolic function is normal for age. - The basal inferior segment is akinetic. Findings Procedure Information Contrast agent, definity, is being given per protocol without apparent complications. The quality of the study was technically difficult. The study quality is limited by patients body habitus and lung artifact. Left Ventricle Normal left ventricular size, thickness, and systolic function. The visually estimated ejection fraction is between 60-65%. There is evidence of regional wall motion abnormalities. Diastolic function is normal for age. Wall Motion Rest Echo Findings The basal inferior segment is akinetic. Right Ventricle Normal right ventricular cavity size and systolic function. Atria The left atrium is mildly dilated. The right atrium is normal in size. Aortic Valve The aortic valve was not well visualized. There is no aortic valve regurgitation. Mitral Valve Normal mitral valve structure and function. There is no mitral valve regurgitation. There is no mitral valve stenosis. Pulmonic Valve The pulmonic valve was not well visualized. Tricuspid Valve Likely normal tricuspid valve structure and function. Great Vessels All visible segments of the aorta are normal in size. Venous The inferior vena cava was not well visualized. Pericardium/Pleural There is no evidence of pericardial effusion. Prior Study Comparison No prior study available for comparison. Measurements 2D Linear Measurements IVSd: 0.97 0.6-0.9/0.6-1.0 cm LVIDd: 4.79 3.9-5.3/4.2-5.9 cm LVIDd Index: 2.18 2.4-3.2/2.2-3.1 cm/m2 LVPWd: 0.82 0.7-1.1 cm LA Diam: 4.30 2.7-3.8/3.0-4.0 cm LAIDs Index: 1.95 1.5-2.3 cm/m2 LV Mass: 181.45 67-162/88-224 g LV Mass Index: 82.48 43-95/49-115 g/m2 LVOT Diam: 2.20 3.0+(-)1.3 cm 2D Systolic Function EF 4C: 71.30 >55% EF 2C: 69.80 >55% EF BiP: 71.30 >55% Mitral Valve MV Pk E: 0.64 MV PK A: 0.75 MV Decel Time: 191.00 E/A: 0.90 E'Lateral: 8.05 E'Medial: 4.90 E/E' Med: 13.10 E/E' Lat: 8.00 PHT: 56.00 MVA PHT: 3.93 Decel [place]: 3.36 Aortic Valve AoV Pk Nito: 1.18 AoV Pk Grad: 6.00 ADAM: 3.12 LVOT LVOT Pk Nito: 0.96 LVOT Mn Nito: 0.63 LVOT VTI: 0.19 LVOT Pk Grad: 4.00 LVOT Mn Grad: 2.00 LVOT Diam: 2.20 LVOT Area: 3.80 Diastolic Function MV Pk E: 0.64 MV Pk A: 0.75 E/A: 0.90 E'Medial: 4.90 E/E' Med: 13.10 E' Laterial: 8.05 E/E' Lat: 8.00 Right Ventricle TAPSE (mm): 19.80 TVS' Niot: 11.20 Great Vessels Aorta Sinus of Valsalva: 3.30 2.0-3.5 cm Ao Asc: 3.30 2.1-3.4 cm Pulmonary Valve PV Pk Nito: 0.83 Peak PV Grad: 3.00 Updated in Other Vendor System with Status of Final Satish Pineda MD electronically signed on 04/28/2024 1:13:54 PM with status of Final
[2024-04-28 07:08] LABS: Hematocrit 39.3 % (37.0-47.0); Hemoglobin 12.6 g/dl (12.0-16.0); Mean Corpuscular HGB Conc 32.1 g/dl (31.0-35.0); Mean Corpuscular Hemoglobin 29.8 pg (27.0-33.0); Mean Corpuscular Volume 92.9 fL (80.0-98.0); Platelet Count 268 X10*3/uL (160-400); Red Blood Count 4.23 X10*6/uL (4.20-5.50); Red Cell Distribution Width 14.5 % (11.0-16.0); White Blood Count 9.5 X10*3/uL (4.8-10.8)
[2024-04-28 07:25] LABS: Anion Gap 13 (12-20); Blood Urea Nitrogen 7 mg/dL (9-16); Carbon Dioxide 27 mmol/L (22-29); Chloride 104 mmol/L (96-108); Creatinine Clr Calc Pharmacy 113.7; Estimated Glomerular Filt Rate > 60; Glucose Random 99 mg/dL (60-115); Potassium 3.7 mmol/L (3.3-5.1); Sodium 140 mmol/L (135-145)
[2024-04-28 07:36] LABS: Troponin-I High Sensitivity 3.1 ng/L (<3.5-17.0)
[2024-04-28 08:11] VITALS: BP 111/52; PULSE 64; RESP 16; TEMP 36.9; O2SAT 94
--- NOTE | 2024-04-28 08:50 | PHA.MEDREC ---
Addendum entered by Elena Sparrow [facility] 04/28/24 09:16: reviewed Original Note: Pharmacy Consult ? Medication Reconciliation Pharmacy has completed the medication reconciliation. Spoke to patient to confirm med list. Patient states she is no longer taking Diclofenac sodium 1% topical gel 2 g QID, Dicyclomine 10 mg QID, Isosorbide mononitrate 30 mg daily, levothyroxine 75 mcg daily was changed to 150 mcg daily, Meloxicam 15 mg daily, Montelukast 10 mg daily, Nicotine 14 mg/24h 1 patch daily, Ondansetron 4 mg Q6-8H, Theophyline ER 400 mg daily and Vibegron 75 mg daily.
[2024-04-28 09:30] LABS: PTT Heparin Drip 57.6 SEC (53-77.9)
--- NOTE | 2024-04-28 10:02 | PM.CNCAR ---
History of Present Illness History of Present Illness Date of Service: 04/28/24 Requesting physician: Viktor Khalil Chief complaint: Chest Pain Narrative: [age] year female with known history of diabetes, previous CVA and previous NH when she was in [place] many years ago presenting with chest discomfort. She is describing a pressure-like feeling in the chest which happen at rest and was associated with sweating and nausea. These symptoms lasted for 20-30 minutes. She has been experiencing chest pain for few days. She recently was also at [facility] with COVID-19. She does not recall any previous interventions although she is saying that she has NH while she was in [place]. Currently she is pain-free. She is on a heparin drip with diagnosis of unstable angina currently. No recent bleeding although she is saying she had internal bleeding few months back. I do not have any documentation of that currently in our system. [facility] Past Medical History Medical History Overactive bladder Urinary retention Migraines Seizure Sleep apnea Fibromyalgia HTN (hypertension) Hyperthyroidism COPD (chronic obstructive pulmonary disease) Asthma Family History Family History Mother Diabetes HTN (hypertension) Heart failure Maternal Aunt Breast cancer Maternal Grandmother Breast cancer Surgical History Surgical History Hx of hysterectomy Hx of tubal ligation Hx of section Social History Social History Alcohol intake: never Patient Tobacco Use Status: Current everyday Tobacco user Cigarettes Per Day: 10 Years Smoked: 30 Substance Use Type: Prescription Drugs service: No Meds Allergies Allergy/AdvReac Type Severity Reaction Status Date / Time Penicillins [PENICILLINS] Allergy Severe HIVES Verified 04/27/24 13:30 amoxicillin [AMOXICILLIN] Allergy Intermediate HIVES Verified 04/27/24 13:30 ciprofloxacin [From Cipro] Allergy Intermediate Hives Verified 04/27/24 13:30 acetaminophen [From Tylox] Allergy Unknown Rash, Verified 04/27/24 13:30 Nausea and Vomiting ibuprofen [From Motrin] Allergy Unknown Gastrointestinal Verified 04/27/24 13:30 Upset latex [LATEX] Allergy Unknown RASH Verified 04/27/24 13:30 penicillin V Allergy Unknown rash Verified 04/27/24 13:30 Active Medications: Current Medications Acetaminophen (Acetaminophen 325 Mg Tablet) 650 mg PO Q6H PRN PRN Reason: Pain, Mild (Pain Scale 1-3), fever or headache Calcium Carbonate (Calcium Carbonate 750 Mg Tab.Chew) 750 mg PO Q4H PRN PRN Reason: Heartburn Heparin Sodium (Porcine) (Heparin Sodium,Porcine 5,000 Unit/Ml Vial) 4,500 unit 40 unit/kg (4500 unit) IVPUSH PROTOCOL BOLUS PRN; Protocol PRN Reason: 40 unit/kg - Heparin Protocol Heparin Sodium (Porcine) (Heparin Sodium,Porcine 5,000 Unit/Ml Vial) 9,100 unit 80 unit/kg (9100 unit) IVPUSH PROTOCOL BOLUS PRN; Protocol PRN Reason: 80 unit/kg - Heparin Protocol Heparin Sodium/Sodium Chloride (Heparin Sodium,Porcine/1/2ns) 25,000 unit in 250 mls @ 0 mls/hr IVCONT .Q0M HELEN; Protocol Last Titration: 04/28/24 09:42 Dose: 8.81 units/kg/hr, 10 mls/hr Magnesium Hydroxide (Milk Of Magnesia 30 Ml Oral.Susp) 30 ml PO DAILY PRN PRN Reason: Constipation Melatonin (Melatonin 3 Mg Tablet) 6 mg PO BEDTIME PRN PRN Reason: Insomnia Nitroglycerin (Nitroglycerin 0.4 Mg Tab.Subl) 0.4 mg SUBLINGUAL Q5MX3 PRN PRN Reason: Chest Pain Last Admin: 04/28/24 06:00 Dose: 0.4 mg Ondansetron HCl (Ondansetron Hcl 4 Mg/2 Ml Vial) 4 mg IVPUSH Q8H PRN PRN Reason: Nausea and Vomiting Sodium Chloride (0.9 % Sodium Chloride Flush 3 Ml Syringe) [facility] Last Admin: 04/28/24 08:12 Dose: Not Given Home Medications ?Medication ?Instructions ?Recorded ?Confirmed ?Last Taken ?Type albuterol sulfate 90 mcg/actuation 2 puff inhalation Q6H PRN 02/28/21 04/28/24 Unknown History aerosol inhaler Shortness Of Breath Or Wheezing aspirin 81 mg tablet,delayed 81 mg PO DAILY 02/28/21 04/28/24 04/27/24 History release furosemide 20 mg tablet (Lasix) 10 mg PO DAILY 02/28/21 04/28/24 04/27/24 History hydrochlorothiazide 12.5 mg tablet 12.5 mg PO DAILY 02/28/21 04/28/24 04/27/24 History lidocaine 5 % topical patch 3 patch topical DAILY PRN Pain 02/28/21 04/28/24 Unknown History meclizine 25 mg tablet 25 mg PO DAILY 02/28/21 04/28/24 04/27/24 History nitroglycerin 0.3 mg sublingual 0.3 mg sublingual Q5M PRN Chest 02/28/21 04/28/24 04/27/24 History tablet Pain simvastatin 20 mg tablet 20 mg PO DAILY 02/28/21 04/28/24 04/27/24 History albuterol sulfate 2.5 mg/3 mL 2.5 mg inhalation TID PRN 05/24/21 04/28/24 Unknown History (0.083 %) solution for nebulization Shortness Of Breath Or Wheezing clonazepam 1 mg tablet 1 mg PO BID PRN panic attack 05/24/21 04/28/24 Unknown History docusate sodium 100 mg capsule 100 mg PO BEDTIME PRN Constipation 05/24/21 04/28/24 Unknown History folic acid 1 mg tablet 1 mg PO DAILY 05/24/21 04/28/24 04/27/24 History omeprazole 20 mg capsule,delayed 40 mg PO DAILY 05/24/21 04/28/24 04/27/24 History release tiotropium bromide 18 mcg capsule 1 cap inhalation DAILY 05/24/21 04/28/24 04/27/24 History with inhalation device (Spiriva with HandiHaler) topiramate 25 mg tablet 25 mg PO BID 05/24/21 04/28/24 04/27/24 History acetaminophen 500 mg tablet 1,000 mg PO DAILY PRN Pain 04/28/24 04/28/24 Unknown History (Tylenol Extra Strength) amlodipine 2.5 mg tablet 5 mg PO DAILY 04/28/24 04/28/24 04/27/24 History budesonide-formoterol HFA 160 2 puff inhalation BID 04/28/24 04/28/24 04/27/24 History mcg-4.5 mcg/actuation aerosol inhaler (Symbicort) cholecalciferol (vitamin D3) 25 25 mcg PO DAILY 04/28/24 04/28/24 04/27/24 History mcg (1,000 unit) tablet (Vitamin D3) diphenhydramine HCl 25 mg capsule 25 mg PO DAILY PRN Sleep 04/28/24 04/28/24 Unknown History (Banophen) fluticasone propionate 50 2 spray intranasal DAILY 04/28/24 04/28/24 04/27/24 History mcg/actuation nasal spray,suspension hydrocortisone 10 mg tablet 10 mg BID 04/28/24 04/28/24 04/27/24 History levothyroxine 150 mcg tablet 150 mcg PO DAILY@0600 04/28/24 04/28/24 04/27/24 History multivitamin 1 tab PO DAILY 04/28/24 04/28/24 04/27/24 History oxycodone 15 mg tablet 15 mg PO Q4H PRN severe pain 04/28/24 04/28/24 04/27/24 History phenytoin sodium extended 100 mg 200 mg PO BID 04/28/24 04/28/24 04/27/24 History capsule pregabalin 300 mg capsule 300 mg PO BID 04/28/24 04/28/24 04/27/24 History sertraline 25 mg tablet 25 mg PO DAILY 04/28/24 04/28/24 04/27/24 History vitamin C 45 mg-zinc citrate 3.75 1 tab PO DAILY 04/28/24 04/28/24 Unknown History mg-elderberry 50 mg chewable tablet ([place]) Physical Exam Vital Signs: Vital Signs: Last Vital Signs Temp 98.4 F 04/28/24 08:11 Pulse 64 04/28/24 08:11 Resp 16 04/28/24 08:11 BP 111/52 L 04/28/24 08:11 Pulse Ox 94 04/28/24 08:11 O2 Del Method Room Air 04/28/24 08:11 O2 Flow Rate 4 04/28/24 03:14 BMI result Body Mass Index 40.4 GENERAL APPEARANCE: in no acute distress, pleasant. NECK: no carotid bruit, no jugular venous distention. SKIN: no suspicious lesions, warm and dry. HEART: no murmurs, regular rate and rhythm. LUNGS: clear to auscultation bilaterally. ABDOMEN: soft, nontender. EXTREMITIES: no edema. PERIPHERAL PULSES: equal. NEUROLOGIC: No gross deficits, AAO X 3 Objective Labs and Meds 04/28/24 06:27 04/28/24 06:27 Lab results: Laboratory Results - last 24 hr 04/27/24 04/28/24 04/28/24 14:26 02:23 06:27 WBC 7.7 9.5 RBC 4.52 4.23 Hgb 13.6 12.6 Hct 42.1 39.3 MCV 93.1 92.9 MCH 30.1 29.8 MCHC 32.3 32.1 RDW 14.6 14.5 Plt Count 274 268 MPV 10.1 10.0 Immature Gran % (Auto) 0.5 H Neut % (Auto) 60.7 Lymph % (Auto) 30.8 [place] % (Auto) 5.8 Eos % (Auto) 1.4 Baso % (Auto) 0.8 Lymph # (Auto) 2.4 [place] # (Auto) 0.5 Eos # (Auto) 0.1 Baso # (Auto) 0.1 Abs Immat Gran (auto) 0.04 H Absolute Neuts (auto) 4.7 Absolute Nucleated RBC 0.000 0.000 Nucleated RBC % (auto) 0.0 0.0 PT 10.5 L INR 0.9 APTT 33.6 aPTT Heparin Protocol 33.8 L Sodium 140 140 Potassium 3.9 3.7 Chloride 105 104 Carbon Dioxide 26 27 Anion Gap 13 13 BUN 8 L 7 L Creatinine 0.70 0.63 Estim Creat Clear Calc 75.0 113.7 Estimated GFR > 60 > 60 Random Glucose 135 H 99 Calcium 9.3 D 9.0 Magnesium 2.2 Total Bilirubin 0.2 AST 22 ALT 36 H Alkaline Phosphatase 110 Troponin I High Sens < 2.7 < 2.7 3.1 B-Natriuretic Peptide 11 Total Protein 7.1 Albumin 4.2 Lipase 25 Urine Color Dark Yellow Urine Appearance Cloudy Urine pH 5.5 Ur Specific [place] 1.020 Urine Protein Negative Urine Glucose (UA) Negative Urine Ketones Negative Urine Blood Negative Urine Nitrite Negative Ur Leukocyte Esterase Negative Urine RBC 0-2 Urine WBC 6-10 H Ur Squamous Epith Cells >20 Urine Bacteria 3+ Hyaline Casts 0-2 COVID-19 (DORON) Negative COVID-19 Clin Com See Note 04/28/24 09:01 WBC RBC Hgb Hct MCV MCH MCHC RDW Plt Count MPV Immature Gran % (Auto) Neut % (Auto) Lymph % (Auto) [place] % (Auto) Eos % (Auto) Baso % (Auto) Lymph # (Auto) [place] # (Auto) Eos # (Auto) Baso # (Auto) Abs Immat Gran (auto) Absolute Neuts (auto) Absolute Nucleated RBC Nucleated RBC % (auto) PT INR APTT aPTT Heparin Protocol 57.6 D Sodium Potassium Chloride Carbon Dioxide Anion Gap BUN Creatinine Estim Creat Clear Calc Estimated GFR Random Glucose Calcium Magnesium Total Bilirubin AST ALT Alkaline Phosphatase Troponin I High Sens B-Natriuretic Peptide Total Protein Albumin Lipase Urine Color Urine Appearance Urine pH Ur Specific [place] Urine Protein Urine Glucose (UA) Urine Ketones Urine Blood Urine Nitrite Ur Leukocyte Esterase Urine RBC Urine WBC Ur Squamous Epith Cells Urine Bacteria Hyaline Casts COVID-19 (DORON) COVID-19 Clin Com Imaging Radiologist's impression: Impressions Chest X-Ray 04/27/24 13:27 IMPRESSION: No acute cardiopulmonary findings. Electronically signed by: Wily Hampton MD 04/27/2024 03:18 PM EDT RP Assessment and Plan (1) Unstable angina: Status: Acute Plan [age] year female who has history of diabetes who is presenting with chest discomfort at rest lasting for 20-30 minutes. This was associated with sweating and nausea. ECG is not showing any dynamic changes and only has nonspecific changes. Troponins are negative. Echocardiography showed preserved LV function but basal inferior wall in some views appears akinetic. Blood pressure is well controlled. No recent bleeding. She is on baby aspirin. Continue heparin drip and treat as unstable angina. I have discussed with her about cardiac catheterization and she is agreeable. We will transferred to [facility] and do a diagnostic angiogram by tomorrow. She will be NPO after midnight. Thank you for allowing me to participate in the care of your patient. Please feel free to contact me if you have any questions. Procedures Date of Service Date of Service: 04/28/24
--- NOTE | 2024-04-28 11:04 | MHC.CM.PN ---
CM met with Patient at bedside, in the ED and addressed IMM with her (original was given to Patient and a copy will be placed on the chart). Patient lives in a house with her Ex-/HCP/Caregiver and she has applied for the Adult Foster Care program. 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 Home self care vs new VNA is the tentative plan and CM has initiated and will follow for dc planning. PCP is Dr.Elias Cool and Ex- will transport to home.
--- NOTE | 2024-04-28 11:09 | PC.NURSE ---
patient is resting quietly in bed, respirations equal and unlabored, skin dry and intact. patient noted to be in a sinus rhythm, VSS heparin gtt 8.81u/kg/hr noted to be therapeutic at 57.6
[2024-04-28] MEDS: Levothyroxine Sodium 150 MCG TABLET PO (11:34)
[2024-04-28] MEDS: oxyCODONE HCl Immed Release 15 MG TABLET PO (11:34)
[2024-04-28] MEDS: Hydrocortisone 10 MG TABLET PO (11:34)
--- NOTE | 2024-04-28 12:45 | PM.EVENT ---
Event Note Date of Service: 04/28/24 Event Note: Chart reviewed patient examined. Agree with H&P and plan as outlined. Continue with heparin drip and further plans as per Cardiology Time Spent With Patient Time: Total time managing care of this patient today ____ minutes.
[2024-04-28 12:49] VITALS: BP 134/83; PULSE 69; RESP 13; O2SAT 95
--- NOTE | 2024-04-28 13:29 | PM.DS ---
DS: Providers Provider Date of Service: 04/28/24 Date of admission: 04/28/24 02:22 Date of discharge: 04/28/24 Primary care physician: Tone Cool MD Consults: 04/28/24 02:57 Consult to Cardiology Routine Consulting Provider: [facility] Reason for consultation: ?unstable angina Has provider been notified: Yes DS: Diagnosis Discharge Diagnosis (1) Unstable angina: Status: Acute DS: Summary Hospital Course Hospital Course: 63-year-old female with pertinent history of CVA x2, CAD with MD x2, hypertension, mixed hyperlipidemia, overactive bladder, mood disorder, COPD not on home oxygen, MELIA not on CPAP, hypothyroidism, migraine, fibromyalgia who presents to the emergency department for evaluation of chest pain. Of note, patient was seen at [facility] on 04/18/2024 for chest pain and dyspnea worse with exertion. Patient tested positive for COVID-19 and was discharged home after 2- troponins. Patient states she has had symptoms for about a month where she has midsternal chest discomfort that radiates to the left shoulder and is associated with sweating, nausea. Exertion makes it worse and it is relieved with rest lasting for about 20-30 minutes. Patient states that the chest discomfort has been worse and progressive over the last 3 days and she has been having chest discomfort even with rest which is relieved with nitroglycerin and oxycodone. Patient woke up with chest discomfort on the day of presentation which was relieved with nitroglycerin in the ER. No fever, chill, palpitations, abdominal pain, changes in urinary or bowel habits. Hospital course Started on heparin drip as per Cardiology. Seen by Cardiology; advises transfer to [facility] for urgent catheterization. Time Attestation Discharge Coordination Time (in mins): 35 Quality: Safe Use of Opioids Does Pt have an Active Cancer Diagnosis on the Problem List?: No Quality: Stroke Does the patient have a stroke diagnosis?: No Physical Exam Vital Signs: Vital Signs: Last Vital Signs Temp 98.4 F 04/28/24 08:11 Pulse 69 04/28/24 12:49 Resp 13 04/28/24 12:49 BP 134/83 04/28/24 12:49 Pulse Ox 95 04/28/24 12:49 O2 Del Method Room Air 04/28/24 12:49 O2 Flow Rate 4 04/28/24 03:14 BMI result Body Mass Index 40.4 Const: Other: Awake alert no acute distress Resp: Other: Clear to auscultation bilaterally no rales rhonchi or wheezes Cardio: Other: No S4; positive S1-S2; no S3 murmurs rubs or gallops GI: Other: Soft nontender nondistended normoactive bowel sounds Extrem: Other: No edema bilaterally DS: Data Data Completed and Pending Labs on day of discharge: Laboratory Results - last 24 hr 04/27/24 04/28/24 04/28/24 14:26 02:23 06:27 WBC 7.7 9.5 RBC 4.52 4.23 Hgb 13.6 12.6 Hct 42.1 39.3 MCV 93.1 92.9 MCH 30.1 29.8 MCHC 32.3 32.1 RDW 14.6 14.5 Plt Count 274 268 MPV 10.1 10.0 Immature Gran % (Auto) 0.5 H Neut % (Auto) 60.7 Lymph % (Auto) 30.8 [place] % (Auto) 5.8 Eos % (Auto) 1.4 Baso % (Auto) 0.8 Lymph # (Auto) 2.4 [place] # (Auto) 0.5 Eos # (Auto) 0.1 Baso # (Auto) 0.1 Abs Immat Gran (auto) 0.04 H Absolute Neuts (auto) 4.7 Absolute Nucleated RBC 0.000 0.000 Nucleated RBC % (auto) 0.0 0.0 PT 10.5 L INR 0.9 APTT 33.6 aPTT Heparin Protocol 33.8 L Sodium 140 140 Potassium 3.9 3.7 Chloride 105 104 Carbon Dioxide 26 27 Anion Gap 13 13 BUN 8 L 7 L Creatinine 0.70 0.63 Estim Creat Clear Calc 75.0 113.7 Estimated GFR > 60 > 60 Random Glucose 135 H 99 Calcium 9.3 D 9.0 Magnesium 2.2 Total Bilirubin 0.2 AST 22 ALT 36 H Alkaline Phosphatase 110 Troponin I High Sens < 2.7 < 2.7 3.1 B-Natriuretic Peptide 11 Total Protein 7.1 Albumin 4.2 Lipase 25 Urine Color Dark Yellow Urine Appearance Cloudy Urine pH 5.5 Ur Specific [place] 1.020 Urine Protein Negative Urine Glucose (UA) Negative Urine Ketones Negative Urine Blood Negative Urine Nitrite Negative Ur Leukocyte Esterase Negative Urine RBC 0-2 Urine WBC 6-10 H Ur Squamous Epith Cells >20 Urine Bacteria 3+ Hyaline Casts 0-2 COVID-19 (DORON) Negative COVID-19 Clin Com See Note 04/28/24 09:01 WBC RBC Hgb Hct MCV MCH MCHC RDW Plt Count MPV Immature Gran % (Auto) Neut % (Auto) Lymph % (Auto) [place] % (Auto) Eos % (Auto) Baso % (Auto) Lymph # (Auto) [place] # (Auto) Eos # (Auto) Baso # (Auto) Abs Immat Gran (auto) Absolute Neuts (auto) Absolute Nucleated RBC Nucleated RBC % (auto) PT INR APTT aPTT Heparin Protocol 57.6 D Sodium Potassium Chloride Carbon Dioxide Anion Gap BUN Creatinine Estim Creat Clear Calc Estimated GFR Random Glucose Calcium Magnesium Total Bilirubin AST ALT Alkaline Phosphatase Troponin I High Sens B-Natriuretic Peptide Total Protein Albumin Lipase Urine Color Urine Appearance Urine pH Ur Specific [place] Urine Protein Urine Glucose (UA) Urine Ketones Urine Blood Urine Nitrite Ur Leukocyte Esterase Urine RBC Urine WBC Ur Squamous Epith Cells Urine Bacteria Hyaline Casts COVID-19 (DORON) COVID-19 Clin Com Discharge Plan Discharge Anticipated Discharge Date/Time: 04/28/24 13:25 Patient Disposition: Xfer Acute Care Hospital Discharge Diagnosis: Unstable angina Referrals: Name,MD Tone [Primary Care Provider] - 1 Week Discharge Medications: New nitroglycerin [Nitrostat] 0.4 mg Tablet, Sublingual 0.4 mg sublingual Q5MX3 PRN (Reason: Chest Pain) Qty: 30 0RF heparin (porcine) 5,000 unit/mL Solution 4,500 unit IVPUSH PROTOCOL BOLUS PRN (Reason: 40 Unit/Kg - Heparin Protocol) Qty: 5 0RF heparin (porcine) 5,000 unit/mL Solution 9,100 unit IVPUSH PROTOCOL BOLUS PRN (Reason: 80 Unit/Kg - Heparin Protocol) Qty: 5 0RF heparin(porcine) in 0.45% NaCl 25,000 unit/250 mL Parenteral Solution 25,000 unit continuous IV infusion .Q0M Qty: 100 0RF Continued cyclobenzaprine 10 mg tablet 10 mg PO TID PRN (Reason: pain) Qty: 10 0RF lisinopril 10 mg tablet 10 mg PO DAILY Qty: 30 0RF loperamide [Anti-Diarrheal (loperamide)] 2 mg tablet 2 mg PO Q4H PRN (Reason: loose stool) Qty: 14 0RF Rx Instructions: administer after each loose stool until symptoms controlled; do not exceed 8 mg per 24 hrs amlodipine 2.5 mg tablet 5 mg PO DAILY phenytoin sodium extended 100 mg capsule 200 mg PO BID oxycodone 15 mg tablet 15 mg PO Q4H PRN (Reason: severe pain) levothyroxine 150 mcg tablet 150 mcg PO DAILY@0600 sertraline 25 mg tablet 25 mg PO DAILY hydrocortisone 10 mg tablet 10 mg BID fluticasone propionate 50 mcg/actuation spray,suspension 2 spray intranasal DAILY pregabalin 300 mg capsule 300 mg PO BID budesonide-formoterol [Symbicort] 160-4.5 mcg/actuation HFA aerosol inhaler 2 puff INHALATION BID multivitamin Tablet 1 tab PO DAILY acetaminophen [Tylenol Extra Strength] 500 mg Tablet 1,000 mg PO DAILY PRN (Reason: Pain) cholecalciferol (vitamin D3) [Vitamin D3] 25 mcg (1,000 unit) Tablet 25 mcg PO DAILY Garlik 45-3.75-50 mg Tablet,Chewable 1 tab PO DAILY Spiriva with HandiHaler 18 mcg capsule, w/inhalation device 1 cap inhalation DAILY folic acid 1 mg tablet 1 mg PO DAILY omeprazole 20 mg capsule,delayed release(DR/EC) 40 mg PO DAILY docusate sodium 100 mg capsule 100 mg PO BEDTIME PRN (Reason: Constipation) topiramate 25 mg tablet 25 mg PO BID clonazepam 1 mg tablet 1 mg PO BID PRN (Reason: panic attack) albuterol sulfate 2.5 mg /3 mL (0.083 %) solution for nebulization 2.5 mg inhalation TID PRN (Reason: Shortness Of Breath Or Wheezing) albuterol sulfate 90 mcg/actuation HFA aerosol inhaler 2 puff inhalation Q6H PRN (Reason: Shortness Of Breath Or Wheezing) nitroglycerin 0.3 mg tablet, sublingual 0.3 mg sublingual Q5M PRN (Reason: Chest Pain) Rx Instructions: do not exceed 3 doses per episode hydrochlorothiazide 12.5 mg tablet 12.5 mg PO DAILY furosemide [Lasix] 20 mg tablet 10 mg PO DAILY lidocaine 5 % adhesive patch,medicated 3 patch topical DAILY PRN (Reason: Pain) Rx Instructions: leave on most painful area for up to 12 hrs simvastatin 20 mg tablet 20 mg PO DAILY aspirin 81 mg tablet,delayed release (DR/EC) 81 mg PO DAILY meclizine 25 mg tablet 25 mg PO DAILY Discontinued diphenhydramine HCl [Banophen] 25 mg capsule 25 mg PO DAILY PRN (Reason: Sleep) Discharge Orders: Discharge Order (Routine); Ordered 04/28/24 Ordered By: Viktor Khalil Diet: Advance to usual diet Activity on Discharge: As tolerated Stand Alone Forms: Patient Portal Discharge page Print Language: Scottish Care Plan Goals: Transfer to [facility] for urgent catheterization Health Concerns: Continue all meds as outlined including heparin Plan of Treatment: As per receiving facility Assessment: See discharge summary
--- NOTE | 2024-04-28 13:36 | MHC.CM.PN ---
Patient will be transferred to [facility].
[2024-04-28 15:16] LABS: PTT Heparin Drip 55.1 SEC (53-77.9)
--- NOTE | 2024-04-28 16:30 | PC.NURSE ---
report given to RN on m7 at [facility]
== END 2024-04-28 19:19 | disposition short-term general hospital (02) | DRG 303 ==
LOC: HO.ED 23:02 → HO.EDOVER 04-28 02:25
PROVIDERS: Physician Assistant; Admitting Provider Student in an Organized Health Care Education/Training Program; Emergency Provider Emergency Medicine Emergency Medical Services; PCP Internal Medicine Geriatric Medicine; Visit Provider Hospitalist
DX: I25.110 Atherosclerotic heart disease of native coronary artery with unstable angina pectoris (principal); Z68.41 Body mass index [BMI] 40.0-44.9, adult; E03.9 Hypothyroidism, unspecified; E78.2 Mixed hyperlipidemia; J44.9 Chronic obstructive pulmonary disease, unspecified; G47.33 Obstructive sleep apnea (adult) (pediatric); I10 Essential (primary) hypertension; E66.9 Obesity, unspecified; Z71.3 Dietary counseling and surveillance; I25.2 Old myocardial infarction; Z86.73 Personal history of transient ischemic attack (TIA), and cerebral infarction without residual deficits; Z20.822 Contact with and (suspected) exposure to COVID-19; Z91.040 Latex allergy status; Z79.82 Long term (current) use of aspirin; Z79.890 Hormone replacement therapy; Z79.899 Other long term (current) drug therapy
CPT/HCPCS: 36415; 71046; 80048; 80053; 81001; 83690; 83735; 83880; 84484; 85025; 85027; 85610; 85730; 87086; 87635; 93005; 93306; 99285; J1644; J2270; Q9957

== ENCOUNTER → 2024-04-28 02:22 | Outpatient (BNV) | payer MEDICARE, SELFPAY | PROVIDERS: Admitting Provider Student in an Organized Health Care Education/Training Program; Emergency Provider Emergency Medicine Emergency Medical Services; PCP Internal Medicine Geriatric Medicine; Visit Provider Student in an Organized Health Care Education/Training Program | DX: I20.0 Unstable angina (principal); R07.9 Chest pain, unspecified | CPT/HCPCS: 99236; 99499 ==

== ENCOUNTER → 2024-04-28 02:22 | Outpatient (BNV) | payer MEDICARE, SELFPAY | PROVIDERS: Admitting Provider Student in an Organized Health Care Education/Training Program; Emergency Provider Emergency Medicine Emergency Medical Services; PCP Internal Medicine Geriatric Medicine; Visit Provider Internal Medicine Cardiovascular Disease | DX: I20.0 Unstable angina (principal); I24.9 Acute ischemic heart disease, unspecified; R93.1 Abnormal findings on diagnostic imaging of heart and coronary circulation | CPT/HCPCS: 93306; 99223 ==

== ENCOUNTER → 2024-04-29 23:59 | Outpatient (BNV) | payer MEDICARE, MEDICAID, SELFPAY | PROVIDERS: PCP Internal Medicine Geriatric Medicine; Visit Provider Internal Medicine Cardiovascular Disease | DX: I20.0 Unstable angina (principal) | CPT/HCPCS: 93458; 93567; 99152 ==

== ENCOUNTER 2024-06-23 17:49 | Outpatient (REF) | payer MEDICARE, MEDICAID, SELFPAY | END 2024-06-23 17:50 | disposition home or self-care (01) | LOC: HO.HHCLNP 17:49 | PROVIDERS: Visit Provider Emergency Medicine | DX: R30.0 Dysuria (principal) | CPT/HCPCS: 87086 ==

== ENCOUNTER 2024-08-11 16:10 | Outpatient (REF) | payer MEDICARE, MEDICAID, SELFPAY ==
[2024-08-12 12:31] LABS: Appearance Urine Cloudy; Color Urine Dark Yellow; Glucose Urine UA Negative (Negative); Leukocyte Esterase Urine Small (1+) (Negative); Nitrite Urine Positive (Negative); PH 5.5 (5.0-9.0); Specific Gravity - Urine 1.015 (1.005-1.025); UMIC TRIGGER UACC YES; Urine Blood Negative (Negative); Urine Ketones Trace mg/dL (Negative); Urine Protein Negative (Neg-Trace)
[2024-08-12 13:05] LABS: Bacteria Urine 3+ (None Seen); Calcium Oxalate Crystals Urine Present; RBC Urine 0-2 /HPF (0-2); UACC Culture Trigger YES; WBC Urine 0-5 /HPF (0-5)
--- OUTSIDE RECORDS SUMMARY | 2024-08-18 02:06 | XMS_ITS | Continuity of Care Document ---
Author Organization [facility] Address [address] [place] [address]- Care Team Providers Care List Of First Job Ideas Name Role Phone Name Tone SEPULVEDA [facility] Care Phys[id number] Date(s): 06/11/24 - 08/04/24 [facility] [address] [place] [address]- Attending Physician: Adelaide Dodson MD Admitting Physician: Adelaide Dodson MD Referring Physician: Not on Staff, Referring MD Encounter Type: Pre-OutPatient One Time Allergies, Adverse Reactions, Alerts Substance Criticality Severity Reaction Reaction Severity Status aspirin hives Active penicillins hives Active Toradol itch all over, gi upset Active Keflex hives Active Tylox C/O: itching Active Latex Hives Active Immunizations Given and Recorded Vaccine Date Status Refusal Reason influenza virus vaccine, inactivated 1 09/21/13 Gi sarah 1Early/Late Reason: Other : pt request Medications albuterol 0.083% inhalation solution 3 mL = 2.5 mg, Inhalation, Every 6 hours, PRN for wheezing, # 60 each, 0 Refills, Maintenance, 04/18/24 5:24:00 AM EDT, Solution, [id number], Partial fill upon patient request if the prescription is for a schedule II opioid drug., 168, cm, 04/18/24 3:44:00 EDT, Height, 109, kg, 04/18/24 3:44:00 EDT, Dry Weight Start Date: 04/18/24 Status: Ordered Quantity: 60.0 Unit: each Repeat number: 1 albuterol CFC free 90 mcg/inh inhalation aerosol 2 puffs, Inhalation, Every 4 hours, PRN for wheezing, # 8.5 Gm, 0 Refills, Maintenance, 05/12/10 1:54:28 AM EDT, Aerosol Start Date: 05/12/10 Status: Ordered Quantity: 8.5 Unit: g Repeat number: 1 Alcohol Pads See Instructions, # 30 each, Refills 8, Tot. Refills 8, Maintenance, Cleanse skin before injection,04/19/22 7:39:00 AM EDT, Supply, 168, cm, 03/01/22 7:27:00 EDT, Height, 107.9, kg, 10/24/21 14:52:00EST, Dry Weight Start Date: 04/19/22 Status: Ordered Quantity: 30.0 Unit: each Repeat number: 9 aspirin 81 mg oral delayed release tablet = 81 mg, By Mouth, Daily, # 90 tablet, 0 Refills, Maintenance, 05/08/24 10:58:00 AM EDT, EC Tablet, [facility], Partial fill upon patient request if the prescription is for a schedule IIopioid drug., 168, cm, 05/08/24 7:24:00 EDT, Height, 113.5, kg, 04/28/24 17:53:00 EDT, Dry Weight Start Date: 05/08/24 Status: Ordered Quantity: 90.0 Unit: tablet Repeat number: 1 Blood Pressure Machine Dx Hypotension Blood Pressure Machine Dx Hypotension, See Instructions, # 1 each, Refills 0, Tot. Refills 0, Maintenance, Please see instructions for use, 10/25/18 2:13:14 PM EST, Compound Start Date: 10/25/18 Status: Ordered Quantity: 1.0 Unit: each Repeat number: 1 BP machine with large cuff BP machine with large cuff, See Instructions, # 1 each, Refills 0, Tot. Refills 0, Maintenance, ICD10 code: I 10, 07/21/19 12:52:39 PM EST, Compound Start Date: 07/21/19 Status: Ordered Quantity: 1.0 Unit: each Repeat number: 1 budesonide-formoterol 160 mcg-4.5 mcg/inh inhalation aerosol with adapter 2, puffs, Inhalation, 2 times a day, Refills 0, Maintenance, 12/25/16 3:13:52 PM EDT Start Date: 12/25/16 Status: Ordered Repeat number: 1 clonazePAM 2 mg oral tablet 1 tablet = 2 mg, By Mouth, 2 times a day, PRN Anxiety, 0 Refills, Maintenance, 01/27/18 5:43:13 AM EDT, Tablet Start Date: 01/27/18 Status: Ordered Repeat number: 1 CPAP Machine See Instructions, Maintenance, 05/13/13 2:19:19 PM EDT, Compound Start Date: 05/13/13 Status: Ordered Repeat number: 1 cyclobenzaprine 10 mg oral tablet TAKE 1 TABLET THREE TIMES DAILY Start Date: 05/01/24 Status: Ordered Repeat number: 1 cyclobenzaprine 10 mg oral tablet 10 mg, 1, tablet, By Mouth, Every 8 hours Start Date: 12/04/18 Status: Ordered Repeat number: 1 diphenhydrAMINE 25 mg oral capsule 1 capsule = 25 mg, By Mouth, Every 8 hours, as needed for allergies Start Date: 12/04/18 Status: Ordered Repeat number: 1 DOK sodium 100 mg oral capsule 1 capsule = 100 mg, By Mouth, Daily at bedtime, as needed Start Date: 12/04/18 Status: Ordered Repeat number: 1 furosemide 20 mg oral tablet 1, capsule, By Mouth, Once, # 1 tablet, Refills 0, Maintenance, 05/01/24 2:36:00 PM EDT, Partial fill upon patient request if the prescription is for a schedule II opioid drug. Start Date: 05/01/24 Status: Ordered Quantity: 1.0 Unit: tablet Repeat number: 1 HydroCORTisone 10 mg oral tablet See Instructions, HOLD WHILE ON PREDNSIONE. ONCE YOU START RESUME 1 TABLET IN THE AM AND 1 TABLET IN THE PM TRIPLE THE DOSE BEFORE SURGERY, # 70 tablet, 0 Refills, Maintenance, 04/19/24 7:55:00 AM EDT, [id number], 168, cm, 04/18/24 3:44:00 EDT, Height, 109, kg, 04/18/24 3:44:00 EDT, Dry Weight Start Date: 04/19/24 Status: Ordered Quantity: 70.0 Unit: tablet Repeat number: 1 isosorbide mononitrate 30 mg oral tablet, extended release 30 mg, By Mouth, Daily, # 90 tablet, Refills 0, Tot. Refills 0, Maintenance, 05/08/24 10:58:00 AM EDT, Route to Pharmacy Electronically, [facility], Partial fill upon patient request if the prescription is for a schedule II opioid drug., 168, cm, 05/08/24 7:24:00 EDT, Height, 113.5, kg, 04/28/24 17:53:00 EDT, Dry Weight Start Date: 05/08/24 Status: Ordered Quantity: 90.0 Unit: tablet Repeat number: 1 levothyroxine 150 mcg (0.15 mg) oral tablet = 150 mcg, By Mouth, Daily, Please schedule lab work up with endocrine 1 month after surgery to assess thyroid levels, # 30 tablet, 2 Refills, Maintenance, 06/04/23 11:41:00 AM EDT, Tablet, [id number], Partial fill upon patient request if the prescription is for a schedule II opioid drug., 168, cm, 06/04/23 11:16:00 EDT, Height, 116, kg, 06/03/23 17:33:00 EDT, Dry Weight Start Date: 06/04/23 Stop Date: 09/02/23 Status: Ordered Quantity: 30.0 Unit: tablet Repeat number: 3 Lyrica 150 mg oral capsule = 300 mg, By Mouth, 2 times a day, 0 Refills, Maintenance, 10/25/18 1:41:18 PM EST, Capsule Start Date: 10/25/18 Status: Ordered Repeat number: 1 Needle 21G x 1- 1.5 Needle 21G x 1- 1.5 , See Instructions, # 3 each, Refills 0, Tot. Refills 0, Maintenance, to draw solucortef, 08/15/22 1:54:00 PM EST, Supply, 167, cm, 08/15/22 13:01:00 EST, Height, 109, kg, 04/29/22 17:29:00 EDT, Dry Weight Start Date: 08/15/22 Status: Ordered Quantity: 3.0 Unit: each Repeat number: 1 Nyamyc 100,000 units/g topical powder See Instructions, APPLY TOPICALLY TO THE AFFECTED AREA TWICE DAILY., # 30 Gm, 1 Refills, Maintenance, 09/03/23 11:02:00 AM EST, [id number], 15, APPLY TOPICALLY TO THE AFFECTED AREA TWICE DAILY.,166, cm, 08/15/23 14:50:00 EST, Height, 104, kg, 08/08/23 11:42:00 EST, Dry Weight Start Date: 09/03/23 Status: Ordered Quantity: 30.0 Unit: g Repeat number: 1 omeprazole 20 mg oral enteric coated tablet 2 tablet = 40 mg, By Mouth, Daily, 0 Refills, Maintenance, 02/27/12 11:24:47 AM EDT Start Date: 02/27/12 Status: Ordered Repeat number: 1 ondansetron 4 mg oral tablet 1 tablet = 4 mg, By Mouth, Every 8 hours, # 12 tablet, 0 Refills, Maintenance, 05/30/23 3:06:00 PM EDT, Tablet, Partial fill upon patient request if the prescription is for a schedule II opioid drug. Start Date: 05/30/23 Status: Ordered Quantity: 12.0 Unit: tablet Repeat number: 1 Oxycodone = 15 mg, By Mouth, Every 4 hours, PRN Pain , Moderate, 0 Refills, Maintenance, 01/27/18 5:42:09 AM EDT Start Date: 01/27/18 Status: Ordered Repeat number: 1 phenytoin 100 mg oral capsule, extended release 1 capsule = 100 mg, By Mouth, 2 times a day Start Date: 12/04/18 Status: Ordered Repeat number: 1 Restasis 0.05% ophthalmic emulsion INSTILL 1 DROP INTO BOTH EYES TWICE A DAY Start Date: 06/23/23 Status: Ordered Repeat number: 1 sertraline 25 mg oral tablet TAKE 1 TABLET BY MOUTH EVERY DAY Start Date: 05/08/24 Status: Ordered Repeat number: 1 simvastatin 20 mg oral tablet 20 mg, By Mouth, Daily at bedtime, Refills 0, Maintenance, 10/25/18 1:41:13 PM EST Start Date: 10/25/18 Status: Ordered Repeat number: 1 topiramate 25 mg oral tablet TAKE 1 TABLET BY MOUTH TWICE DAILY IN THE MORNING AND IN THE EVENING Start Date: 05/08/24 Status: Ordered Repeat number: 1 Walker See Instructions, # 1 each, Maintenance, Rolling walker height 166cm wt 104kg, 08/08/23 11:04:00 AM EST, Supply Start Date: 08/08/23 Status: Ordered Quantity: 1.0 Unit: each Repeat number: 1 Problem List Condition Confirmation Course Effective Dates Status H ealth Status Informant Angina at rest, uses nitroglycerin weekly Confirmed Active Atypical chest pain Confirmed Active Bipolar disorder NOS Confirmed Active BRCA2 positive [id number] Confirmed Active Carpal tunnel syndrome on right, surgical release Confirmed 08/10/10 Active COPD with asthma Confirmed Active Chronic pain issues Confirmed Active COVID-19 1 Confirmed 04/18/24 Active Oxygen dependence at night only Confirmed Active Back disorder Confirmed Active Thyroid disorder Confirmed Active Family history of breast cancer Confirmed Active Fibromyalgia Confirmed Active Esophageal reflux (GERD) Confirmed Active Glaucoma Confirmed Active History of DC (myocardial infarction) Confirmed Active High cholesterol Confirmed Active Secondary adrenal insufficiency Confirmed Active Hypothyroidism Confirmed Active Irritable bowel syndrome Confirmed Active DJD (degenerative joint disease) of lumbar spine Confirmed Active Anxiety and depression Confirmed Active Nicotine abuse Confirmed Active Obesity (actual BMI 34.79 as of 09/19/2014) Confirmed Active MELIA on CPAP Confirmed Active Seizure disorder Confirmed Active Severe obesity (BMI 35.0-39.9) with comorbidity Confirmed Active Current tobacco use Confirmed Active Varicose vein Confirmed Active Hepatitis A Confirmed Active 1Problem added by Discern Expert Social History Social History Type Response Smoking Status 5-9 cigarettes (betw een 1/4 to 1/2 pack)/day in last 30 days; Interested in cessation: No; Patient wants NRT during admission Yes entered on: 04/28/24 Sex Sex Representation Female (finding) Patient Care team information Care Team Personnel Name: Briana Santos Position: [facility] Onco RN Member Role: Primary Care Nurse Name: Kirstin Mello RN Position: [facility] RN Member Role: Primary Care Nurse Name: Eloisa Sutton RN Position: [facility] RN Member Role: Primary Care Nurse Name: Joan Pack RN Position: [facility] RN Supv Member Role: Primary Care Nurse Name: Ewelina Guerrero RN Position: [facility] RN Member Role: Primary Care Nurse Name: Marge Harmon RN Position: [facility] RN Member Role: Primary Care Nurse Name: Tone Cool MD Position: [facility] Outreach Member Role: PCP Address: [address] [place] [id number] Telecom: Name: Libby Valentine RN Position: [facility] SN RN Member Role: Primary Care Nurse Name: Taylor Stuart RN Position: [facility] RN Member Role: Primary Care Nurse Name: Christianne Murguia RN Position: [facility] RN Member Role: Primary Care Nurse Name: Nery Dooley Position: [facility] Outreach Member Role: Lifetime Consulting Physician Name: Joan Amaya RN Position: [facility] RN Member Role: Primary Care Nurse Name: Sarah Hardwick RN Position: [facility] RN Member Role: Primary Care Nurse Name: Pam Crook LPN Position: [facility] RN Member Role: Primary Care Nurse Name: Heidi Bui RN Position: [facility] RN Member Role: Primary Care Nurse Name: Peri Skinner RN Position: [facility] RN Member Role: Primary Care Nurse Care Team Related Persons Name: NICK CROOK Name: ROGERS CROOK Insurance Providers Guarantor name: [facility] [employer] [facility] Information #: 2 Payer: [facility] Member Number: [id number] Policy Number: NA Group Number: Health Plan Information #: 3 Payer: [facility] Member Number: [id number] Policy Number: NA Group Number: Health Plan Information #: 1 Payer: Member Number: [id number] Policy Number: Group Number: [id number]
--- OUTSIDE RECORDS SUMMARY | 2024-08-18 02:06 | XMS_ITS | Continuity of Care Document ---
Author Organization [facility] Address [address] [place] [address]- Care Team Providers Care Inspector Receiving Name Role Phone Name Tone SEPULVEDA Primary Care Physician Encounter [facility] Date(s): 07/05/24 - 08/04/24 [facility] [address] [place] [address]- Attending Physician: AdmtrJosé Luis Admitting Physician: AdmtrJosé Luis Referring Physician: Admtr, [id number] Encounter Type: Triage Allergies, Adverse Reactions, Alerts Substance Criticality Severity [...] Maintenance, 04/18/24 5:24:00 AM EDT, Solution, [id number], Partial fill upon patient request if the [...] Maintenance, 05/08/24 10:58:00 AM EDT, EC Tablet, [facility], Partial fill upon patient request if [...] 0 Refills, Maintenance, 04/19/24 7:55:00 AM EDT, [id number], 168, cm, 04/18/24 3:44:00 EDT, Height, 109, kg, 04/18/24 3:44:00 EDT, Dry Weight Start Date: 04/19/24 Status: Ordered Quantity: 70.0 Unit: tablet Repeat number: 1 isosorbide mononitrate 30 mg oral tablet, extended release 30 mg, By Mouth, Daily, # 90 tablet, Refills 0, Tot. Refills 0, Maintenance, 05/08/24 10:58:00 AM EDT, Route to Pharmacy Electronically, [facility], Partial fill upon patient [...] Refills, Maintenance, 06/04/23 11:41:00 AM EDT, Tablet, [id number], Partial fill upon patient request if [...] Quantity: 3.0 Unit: each Repeat number: 1 [facility] [place],000 units/g topical powder See Instructions, APPLY TOPICALLY TO THE AFFECTED AREA TWICE DAILY., # 30 Gm, 1 Refills, Maintenance, 09/03/23 11:02:00 AM EST, [id number], 15, APPLY TOPICALLY TO THE AFFECTED AREA [...] Confirmed Active Glaucoma Confirmed Active History of SD (myocardial infarction) Confirmed Active High cholesterol Confirmed [...] Care Team Personnel Name: Briana Santos Position: [facility] Onco RN Member Role: Primary Care Nurse Name: Kirstin Mello RN Position: [facility] RN Member Role: Primary Care Nurse Name: Eloisa Sutton RN Position: [facility] RN Member Role: Primary Care Nurse Name: Joan Pack RN Position: [facility] RN Supv Member Role: Primary Care Nurse Name: Ewelina Guerrero RN Position: [facility] RN Member Role: Primary Care Nurse Name: Marge Harmon RN Position: [facility] RN Member Role: Primary Care Nurse Name: Tone Cool MD Position: [facility] Outreach Member Role: PCP Address: [address] [place] [id number] Tele[employer]: Name: Libby Valentine RN Position: [facility] SN RN Member Role: Primary Care Nurse Name: Talyor Stuart RN Position: [facility] RN Member Role: Primary Care Nurse Name: Christianne Murguia RN Position: [facility] RN Member Role: Primary Care Nurse Name: Nery Dooley Position: [facility] Outreach Member Role: [employer] Consulting Physician Name: Joan Amaya RN Position: [facility] RN Member Role: Primary Care Nurse Name: Sarah Hardwick RN Position: [facility] RN Member Role: Primary Care Nurse Name: Pam Crook LPN Position: [facility] RN Member Role: Primary Care Nurse Name: Heidi Bui RN Position: [facility] RN Member Role: Primary Care Nurse Name: Peri Skinner RN Position: [facility] RN Member Role: Primary Care Nurse Care Team Related Persons Name: NICK CROOK Name: ROGERS CROOK Insurance Providers Guarantor name: [facility] [address] Plan Information #: 1 Payer: NA Member Number: NA Policy Number: NA Group Number: NA Health Plan Information #: 2 Payer: [facility] Member Number: NA Policy Number: NA Group Number: NA Health Plan Information #: 3 Payer: [facility] Member Number: NA Policy Number: NA Group Number: NA
== END 2024-08-11 16:11 | disposition home or self-care (01) ==
LOC: HO.HHCLNP 16:10
PROVIDERS: Visit Provider Family Medicine
DX: R39.9 Unspecified symptoms and signs involving the genitourinary system (principal)
CPT/HCPCS: 81001; 87086; 87088; 87186

== ENCOUNTER 2024-09-10 10:54 | Emergency (ER) | payer OTHER, MEDICAID, SELFPAY ==
--- NOTE | ~2024-09-10 | CT_ITS ---
CLINICAL HISTORY: abd pain, urinary retention CT abdomen and pelvis without contrast Comparison: 10/14/2022 Findings: The lung bases are clear. There is a sliding-type hiatal hernia. The gallbladder and solid organs are within normal limits. No renal stones. No bowel obstruction, pneumoperitoneum, or pneumatosis. There are diverticuli scattered throughout the colon, without evidence of diverticulitis Pelvic contents unremarkable. Normal appendix. The bones are intact. IMPRESSION: No acute findings. This document has been electronically signed by: Matti Sanders MD on 09/10/2024 18:39:13
--- NOTE | 2024-09-10 11:07 | ED_ITS ---
HPI - General Adult General Chief complaint: Chest Pain Stated complaint: Unable to void Time Seen by Provider: 09/10/24 16:47 Source: patient Limitations: no limitations History of Present Illness HPI narrative: 63-year-old female who has a history of overactive bladder, chronic abdominal and pelvic pain, fibromyalgia, history of bladder sling status post removal, presents for urinary urgency and retention. Patient states over the past 2-3 days she has been having difficulty urinating. Patient states it has been only passing small amounts. Today she woke at approximately 2:00 a.m. in the morning with the urge to urinate but was unable to. Patient states throughout the day she has not been able to void normally. In addition she reports diffuse pelvic pain which is similar to her chronic pain but much worse. She is also reporting having diffuse upper abdominal pain. She was supposed to have a abdominal ultrasound today for because of her not feeling well she presents to the emergency department. She denies any fevers or chills. She has had nausea but no vomiting. Patient also reports taking Lasix but has not been taking it because of urinary retention. Of note, patient has been having recurrent urinary tract infections. Two weeks and was treated with antibiotics. Patient states she completed her entire course. Related Data Home Medications ?Medication ?Instructions ?Recorded ?Confirmed albuterol sulfate 90 mcg/actuation 2 puff inhalation Q6H PRN 02/28/21 04/28/24 aerosol inhaler Shortness Of Breath Or Wheezing aspirin 81 mg tablet,delayed 81 mg PO DAILY 02/28/21 04/28/24 release furosemide 20 mg tablet (Lasix) 10 mg PO DAILY 02/28/21 04/28/24 hydrochlorothiazide 12.5 mg tablet 12.5 mg PO DAILY 02/28/21 04/28/24 lidocaine 5 % topical patch 3 patch topical DAILY PRN Pain 02/28/21 04/28/24 meclizine 25 mg tablet 25 mg PO DAILY 02/28/21 04/28/24 nitroglycerin 0.3 mg sublingual 0.3 mg sublingual Q5M PRN Chest 02/28/21 04/28/24 tablet Pain simvastatin 20 mg tablet 20 mg PO DAILY 02/28/21 04/28/24 albuterol sulfate 2.5 mg/3 mL 2.5 mg inhalation TID PRN 05/24/21 04/28/24 (0.083 %) solution for nebulization Shortness Of Breath Or Wheezing clonazepam 1 mg tablet 1 mg PO BID PRN panic attack 05/24/21 04/28/24 docusate sodium 100 mg capsule 100 mg PO BEDTIME PRN Constipation 05/24/21 04/28/24 folic acid 1 mg tablet 1 mg PO DAILY 05/24/21 04/28/24 omeprazole 20 mg capsule,delayed 40 mg PO DAILY 05/24/21 04/28/24 release tiotropium bromide 18 mcg capsule 1 cap inhalation DAILY 05/24/21 04/28/24 with inhalation device (Spiriva with HandiHaler) topiramate 25 mg tablet 25 mg PO BID 05/24/21 04/28/24 acetaminophen 500 mg tablet 1,000 mg PO DAILY PRN Pain 04/28/24 04/28/24 (Tylenol Extra Strength) amlodipine 2.5 mg tablet 5 mg PO DAILY 04/28/24 04/28/24 budesonide-formoterol HFA 160 2 puff inhalation BID 04/28/24 04/28/24 mcg-4.5 mcg/actuation aerosol inhaler (Symbicort) cholecalciferol (vitamin D3) 25 25 mcg PO DAILY 04/28/24 04/28/24 mcg (1,000 unit) tablet (Vitamin D3) fluticasone propionate 50 2 spray intranasal DAILY 04/28/24 04/28/24 mcg/actuation nasal spray,suspension hydrocortisone 10 mg tablet 10 mg BID 04/28/24 04/28/24 levothyroxine 150 mcg tablet 150 mcg PO DAILY@0600 04/28/24 04/28/24 multivitamin 1 tab PO DAILY 04/28/24 04/28/24 oxycodone 15 mg tablet 15 mg PO Q4H PRN severe pain 04/28/24 04/28/24 phenytoin sodium extended 100 mg 200 mg PO BID 04/28/24 04/28/24 capsule pregabalin 300 mg capsule 300 mg PO BID 04/28/24 04/28/24 sertraline 25 mg tablet 25 mg PO DAILY 04/28/24 04/28/24 vitamin C 45 mg-zinc citrate 3.75 1 tab PO DAILY 04/28/24 04/28/24 mg-elderberry 50 mg chewable tablet (wise.io) Previous Rx's ?Medication ?Instructions ?Recorded cyclobenzaprine 10 mg tablet 10 mg PO TID PRN pain #10 tabs 06/22/20 lisinopril 10 mg tablet 10 mg PO DAILY #30 tabs 07/24/20 loperamide 2 mg tablet 2 mg PO Q4H PRN loose stool #14 07/09/21 (Anti-Diarrheal (loperamide)) tabs heparin (porcine) 25,000 unit/250 25,000 unit (250 mL) continuous IV 04/28/24 mL in 0.45 % sodium chloride IV infusion .Q0M #100 mL soln heparin (porcine) 5,000 unit/mL 4,500 unit (0.9 mL) IVPUSH 04/28/24 injection solution PROTOCOL BOLUS PRN 40 Unit/Kg - Heparin Protocol #5 mL heparin (porcine) 5,000 unit/mL 9,100 unit (1.82 mL) IVPUSH 04/28/24 injection solution PROTOCOL BOLUS PRN 80 Unit/Kg - Heparin Protocol #5 mL nitroglycerin 0.4 mg sublingual 0.4 mg sublingual Q5MX3 PRN Chest 04/28/24 tablet (Nitrostat) Pain #30 tabs Allergies Allergy/AdvReac Type Severity Reaction Status Date / Time Penicillins [PENICILLINS] Allergy Severe HIVES Verified 09/10/24 11:10 amoxicillin [AMOXICILLIN] Allergy Intermediate HIVES Verified 09/10/24 11:10 ciprofloxacin [From Cipro] Allergy Intermediate Hives Verified 09/10/24 11:10 acetaminophen [From Tylox] Allergy Unknown Rash, Verified 09/10/24 11:10 Nausea and Vomiting ibuprofen [From Motrin] Allergy Unknown Gastrointestinal Verified 09/10/24 11:10 Upset latex [LATEX] Allergy Unknown RASH Verified 09/10/24 11:10 penicillin V Allergy Unknown rash Verified 09/10/24 11:10 Review of Systems 2 Constitutional: Constitutional: Reports as per HPI, Denies chills, Denies fatigue, Denies fever(s) and Denies headache(s) ENT: Denies headache(s) Cardiovascular: Cardiovascular: Denies chest pain and Denies dyspnea Respiratory: Respiratory: Denies cough and Denies dyspnea Gastrointestinal: Gastrointestinal: Reports abdominal pain, Denies constipation, Reports nausea and Denies vomiting Genitourinary: Genitourinary: Reports dysuria, Reports pelvic pain, Reports urinary hesitancy, Reports urinary urgency and Denies vaginal discharge Neurologic: Denies headache(s) and Denies focal weakness Endocrine: Endocrine: Denies fatigue [facility] Past Medical History Medical History Overactive bladder Urinary retention Migraines Seizure Sleep apnea Fibromyalgia HTN (hypertension) Hyperthyroidism COPD (chronic obstructive pulmonary disease) Asthma Surgical History Hx of hysterectomy Hx of tubal ligation Hx of section Family History Family History Mother Diabetes HTN (hypertension) Heart failure Maternal Aunt Breast cancer Maternal Grandmother Breast cancer Social History Social History Alcohol intake: never Patient Tobacco Use Status: Current everyday Tobacco user Cigarettes Per Day: 10 Years Smoked: 30 Substance Use Type: Prescription Drugs service: No Physical Exam ED Vital Signs: Vital Signs - 24 hr 09/10/24 11:08 09/10/24 17:20 09/10/24 19:42 Temperature 98.2 F 96.9 F Pulse Rate 73 73 79 Respiratory Rate 20 18 18 Blood Pressure 163/91 H 161/85 H 175/97 H Pulse Oximetry 96 95 94 Oxygen Delivery Method Room Air Room Air Room Air 09/10/24 20:39 09/10/24 20:50 Temperature 96.9 F 96.9 F Pulse Rate 79 79 Respiratory Rate 18 18 Blood Pressure 175/97 H 175/97 H Pulse Oximetry 97 Oxygen Delivery Method Room Air BMI result Body Mass Index 39.1 Const General: healthy appearing, comfortable, no acute distress, alert and awake Orientation/consciousness: patient oriented x3 HENMT Head: Yes normocephalic and Yes atraumatic Throat: Yes posterior oropharynx normal Neck Neck: Yes full ROM Resp Effort & Inspection: normal respiratory effort, able to speak in complete sentences, no audible wheezes and not labored Auscultation: clear to auscultation bilaterally Cardio Rate: regular rate Rhythm: regular rhythm GI Other: Abdomen is soft with diffusely tender particularly in the lower abdomen. No peritoneal signs. Inspection: Yes obesity Auscultation: normal bowel sounds Skin General skin exam: no rashes or lesions noted and elasticity normal Neuro General: patient oriented x3 Cranial nerves: Yes CN's II-XII intact bilaterally and Yes Bilaterally intact EOM present Cognition (Neuro): normal cognition Extrem Other: Moving all extremities well without any obvious deformities Course Course Course Narrative: This is a rapid medical exam performed by Myke Kenny NP: Additional HPI, ROS, PE not included below will be deferred to primary provider. Patient is a 63-year-old female with history of acute coronary insufficiency syndrome, unstable angina, urinary retention, fibromyalgia, on lasix, presenting with complaint of urinary retention since 2am. Also c/o abd pain x 1 month, recently treated for UTI at Urgent Care. Also complaining of chest pain. Takes oxycodone Q4h at home, states this did not help with her pain. Plan: EKG, labs, UA Reevaluation(s) Reevaluation #1: Initial Hudson catheter, removed several 100 mL of urine. Patient with improvement in symptoms. Prescription monitoring program demonstrates consistent use of Lyrica, and oxycodone. Patient confirms that she has been on these medications for many years. 7:45 p.m. patient is sleeping in the exam stretcher. She reports good improvement in her symptoms. Hudson catheter at this time has demonstrated approximately 100 mL of urine. Patient confirmed that she had previously seen [facility] however it was discharged from that practice because she missed appointments. A new urology referral has been provided. I have had extensive discussion with the patient regarding all discharge instructions including the Hudson catheter. She expressed understanding of all discharge instructions and has no further questions at this time. Discussed with Dr. Stuart who agrees with plan. Medications Administered Discontinued Medications Generic Name Dose Route Start Last Admin Trade Name Freq PRN Reason Stop Dose Admin Ketorolac Tromethamine 15 mg 09/10/24 18:44 09/10/24 19:08 Ketorolac Tromethamine 15 Mg/Ml Vial IVPUSH 09/10/24 18:45 Not Given ONCE ONE Phenazopyridine HCl 200 mg 09/10/24 18:44 09/10/24 19:08 Phenazopyridine Hcl 200 Mg Tablet PO 09/10/24 18:45 200 mg ONCE ONE Administration Medical Decision Making Medical Decision Making MDM Narrative: 63-year-old female with a history of overactive bladder, status post bladder sling with removal, presents with urinary urgency, frequency and retention. Bladder scan noted to have 263 upon arrival. Hudson catheter will be placed. In addition, check CT of the abdomen and pelvis to ensure no other etiology causing patient's symptoms assistance or other process. Differential Diagnosis Differential Diagnoses: The differential diagnosis associated with the presentation includes Overactive bladder Urinary retention UTI Pyelonephritis Lab Data MDM Lab Attestation statement: I reviewed the patient's lab results. 09/10/24 11:38 09/10/24 11:38 Labs: Lab Results 09/10/24 09/10/24 Range/Units 11:38 17:27 WBC 7.4 (4.8-10.8) X10*3/uL RBC 4.67 (4.20-5.50) X10*6/uL Hgb 13.2 (12.0-16.0) g/dl Hct 41.6 (37.0-47.0) % MCV 89.1 (80.0-98.0) fL MCH 28.3 (27.0-33.0) pg MCHC 31.7 (31.0-35.0) g/dl RDW 14.5 (11.0-16.0) % Plt Count 290 (160-400) X10*3/uL MPV 10.2 (9.4-12.3) fL Immature Gran % (Auto) 0.5 H (0.0-0.4) % Neut % (Auto) 60.4 (45-73) % Lymph % (Auto) 30.3 (20-40) % [place] % (Auto) 5.7 (2-11) % Eos % (Auto) 2.0 (0-4) % Baso % (Auto) 1.1 (0-2) % Lymph # (Auto) 2.2 (1.2-4.9) X10*3/uL [place] # (Auto) 0.4 (0.1-1.2) X10*3/uL Eos # (Auto) 0.2 (0.0-0.4) X10*3/uL Baso # (Auto) 0.1 (0.0-0.2) X10*3/uL Abs Immat Gran (auto) 0.04 H (0.00-0.03) X10*3/uL Absolute Neuts (auto) 4.5 (2.0-8.3) x10*3/uL Absolute Nucleated RBC 0.000 (0.0-0.012) X10*3/uL Nucleated RBC % (auto) 0.0 (0.0-0.2) /100WBC PT 10.3 L (10.9-12.4) SEC INR 0.9 (0.9-1.1) Sodium 139 (135-145) mmol/L Potassium 4.1 (3.3-5.1) mmol/L Chloride 109 H (96-108) mmol/L Carbon Dioxide 26 (22-29) mmol/L Anion Gap 8 L (12-20) BUN 8 L (9-16) mg/dL Creatinine 0.67 (0.5-1.4) mg/dL Estim Creat Clear Calc 105.0 Estimated GFR > 60 Random Glucose 89 (60-115) mg/dL Calcium 9.0 (8.4-10.2) mg/dL Total Bilirubin 0.2 (0.0-1.0) mg/dL AST 35 H (5-31) U/L ALT 23 (0-31) U/L Alkaline Phosphatase 142 H (39-117) U/L Troponin I High Sens < 2.7 (<3.5-17.0) ng/L Total Protein 7.0 (6.5-8.0) g/dL Albumin 4.1 (3.5-5.0) g/dL Lipase 16 (8-78) U/L Urine Color Yellow Urine Appearance Clear Urine pH 6.0 (5.0-9.0) Ur Specific [place] 1.020 (1.005-1.025) Urine Protein Negative (Neg-Trace) mg/dL Urine Glucose (UA) Negative (Negative) mg/dL Urine Ketones Trace (Negative) mg/dL Urine Blood Negative (Negative) Urine Nitrite Negative (Negative) Ur Leukocyte Esterase Negative (Negative) Influenza Type A (PCR) NEGATIVE (Negative) Influenza Type B (PCR) NEGATIVE (Negative) RSV RNA Qual (PCR) NEGATIVE (Negative) SARS-CoV-2 RNA (RT-PCR) NEGATIVE (Negative) Discharge Plan Discharge Clinical Impression: Acute urinary retention, Overactive bladder Patient Disposition: Home, Self-Care Instructions: Hudson Catheter Placement and Care (ED), Acute Urinary Retention in Women (ED) Additional Instructions: Follow-up with your urology referral. Call 1st thing Friday morning. Pyridium as directed. Hudson thoracic directed Follow-up with your primary care provider. Call this week to schedule a follow- up appointment. Return to the emergency department if you have any worsening of symptoms, or any concerns. Get well soon! Prescriptions: No Action cyclobenzaprine 10 mg tablet 10 mg PO TID PRN (Reason: pain) Qty: 10 0RF lisinopril 10 mg tablet 10 mg PO DAILY Qty: 30 0RF loperamide [Anti-Diarrheal (loperamide)] 2 mg tablet 2 mg PO Q4H PRN (Reason: loose stool) Qty: 14 0RF Rx Instructions: administer after each loose stool until symptoms controlled; do not exceed 8 mg per 24 hrs amlodipine 2.5 mg tablet 5 mg PO DAILY phenytoin sodium extended 100 mg capsule 200 mg PO BID oxycodone 15 mg tablet 15 mg PO Q4H PRN (Reason: severe pain) levothyroxine 150 mcg tablet 150 mcg PO DAILY@0600 sertraline 25 mg tablet 25 mg PO DAILY hydrocortisone 10 mg tablet 10 mg BID fluticasone propionate 50 mcg/actuation spray,suspension 2 spray intranasal DAILY pregabalin 300 mg capsule 300 mg PO BID budesonide-formoterol [Symbicort] 160-4.5 mcg/actuation HFA aerosol inhaler 2 puff INHALATION BID multivitamin Tablet 1 tab PO DAILY acetaminophen [Tylenol Extra Strength] 500 mg Tablet 1,000 mg PO DAILY PRN (Reason: Pain) cholecalciferol (vitamin D3) [Vitamin D3] 25 mcg (1,000 unit) Tablet 25 mcg PO DAILY wise.io 45-3.75-50 mg Tablet,Chewable 1 tab PO DAILY nitroglycerin [Nitrostat] 0.4 mg Tablet, Sublingual 0.4 mg sublingual Q5MX3 PRN (Reason: Chest Pain) Qty: 30 0RF heparin (porcine) 5,000 unit/mL Solution 4,500 unit IVPUSH PROTOCOL BOLUS PRN (Reason: 40 Unit/Kg - Heparin Protocol) Qty: 5 0RF heparin (porcine) 5,000 unit/mL Solution 9,100 unit IVPUSH PROTOCOL BOLUS PRN (Reason: 80 Unit/Kg - Heparin Protocol) Qty: 5 0RF heparin(porcine) in 0.45% NaCl 25,000 unit/250 mL Parenteral Solution 25,000 unit continuous IV infusion .Q0M Qty: 100 0RF Spiriva with HandiHaler 18 mcg capsule, w/inhalation device 1 cap inhalation DAILY folic acid 1 mg tablet 1 mg PO DAILY omeprazole 20 mg capsule,delayed release(DR/EC) 40 mg PO DAILY docusate sodium 100 mg capsule 100 mg PO BEDTIME PRN (Reason: Constipation) topiramate 25 mg tablet 25 mg PO BID clonazepam 1 mg tablet 1 mg PO BID PRN (Reason: panic attack) albuterol sulfate 2.5 mg /3 mL (0.083 %) solution for nebulization 2.5 mg inhalation TID PRN (Reason: Shortness Of Breath Or Wheezing) albuterol sulfate 90 mcg/actuation HFA aerosol inhaler 2 puff inhalation Q6H PRN (Reason: Shortness Of Breath Or Wheezing) nitroglycerin 0.3 mg tablet, sublingual 0.3 mg sublingual Q5M PRN (Reason: Chest Pain) Rx Instructions: do not exceed 3 doses per episode hydrochlorothiazide 12.5 mg tablet 12.5 mg PO DAILY furosemide [Lasix] 20 mg tablet 10 mg PO DAILY lidocaine 5 % adhesive patch,medicated 3 patch topical DAILY PRN (Reason: Pain) Rx Instructions: leave on most painful area for up to 12 hrs simvastatin 20 mg tablet 20 mg PO DAILY aspirin 81 mg tablet,delayed release (DR/EC) 81 mg PO DAILY meclizine 25 mg tablet 25 mg PO DAILY Referrals: Ange Mcacrty MD [Physician] - 3 days (urinary retention, hudson management) Chava Rhodes MD [Physician] - 3 days (Hudson management, urinary retention) Interventions: ED Discharge Assessment Last Done: 09/10/24 20:50 Discharge Date/Time: 09/10/24 20:53 Print Language: [place]
[2024-09-10 11:08] VITALS: BP 163/91; PULSE 73; RESP 20; TEMP 36.8; O2SAT 96; BMI 39.1
--- NOTE | 2024-09-10 11:09 | ECG_ITS ---
Test Reason : chest pain Blood Pressure : / mmHG Vent. Rate : 070 BPM Atrial Rate : 070 BPM P-R Int : 168 ms QRS Dur : 084 ms QT Int : 410 ms P-R-T Axes : 051 013 058 degrees QTc Int : 442 ms Normal sinus rhythm Nonspecific ST and T wave abnormality Abnormal ECG When compared with ECG of 28-APR-2024 02:10, No significant change was found Referred By: Hazel Kenny Electronically Signed By:VANIA KAPLAN MD
[2024-09-10 11:48] LABS: MANUAL DIFF FLAG NO
[2024-09-10 11:50] LABS: Basophils Absolute Auto 0.1 X10*3/uL (0.0-0.2); Basophils Percent Auto 1.1 % (0-2); Eosinophils Absolute Auto 0.2 X10*3/uL (0.0-0.4); Hematocrit 41.6 % (37.0-47.0); Hemoglobin 13.2 g/dl (12.0-16.0); Imm Gran Abs Auto 0.04 X10*3/uL (0.00-0.03); Imm Gran Pct Auto 0.5 % (0.0-0.4); Lymphocytes Absolute Auto 2.2 X10*3/uL (1.2-4.9); Lymphocytes Percent Auto 30.3 % (20-40); Mean Corpuscular HGB Conc 31.7 g/dl (31.0-35.0); Mean Corpuscular Hemoglobin 28.3 pg (27.0-33.0); Mean Corpuscular Volume 89.1 fL (80.0-98.0); Mean Platelet Volume 10.2 fL (9.4-12.3); Monocytes Absolute Auto 0.4 X10*3/uL (0.1-1.2); Monocytes Percent Auto 5.7 % (2-11); Neutrophils Absolute Auto 4.5 x10*3/uL (2.0-8.3); Neutrophils Percent Auto 60.4 % (45-73); Platelet Count 290 X10*3/uL (160-400); Red Blood Count 4.67 X10*6/uL (4.20-5.50); Red Cell Distribution Width 14.5 % (11.0-16.0); White Blood Count 7.4 X10*3/uL (4.8-10.8)
[2024-09-10 11:57] LABS: INTERNATIONAL NORM RATIO 0.9 (0.9-1.1); Prothrombin Time 10.3 SEC (10.9-12.4)
[2024-09-10 12:17] LABS: Alanine Aminotransferase 23 U/L (0-31); Albumin Level 4.1 g/dL (3.5-5.0); Alkaline Phosphatase 142 U/L (39-117); Anion Gap 8 (12-20); Aspartate Amino Transferase 35 U/L (5-31); Bilirubin Total 0.2 mg/dL (0.0-1.0); Blood Urea Nitrogen 8 mg/dL (9-16); Carbon Dioxide 26 mmol/L (22-29); Chloride 109 mmol/L (96-108); Estimated Glomerular Filt Rate > 60; Glucose Random 89 mg/dL (60-115); Lipase 16 U/L (8-78); Potassium 4.1 mmol/L (3.3-5.1); Sodium 139 mmol/L (135-145)
[2024-09-10 12:27] LABS: Troponin-I High Sensitivity < 2.7 ng/L (<3.5-17.0)
[2024-09-10 12:33] LABS: Influenza A PCR NEGATIVE (Negative); Influenza B PCR NEGATIVE (Negative); Resp Syncy Virus RNA Qual PCR NEGATIVE (Negative); SARS COV2 PCR INHOUSE NEGATIVE (Negative)
--- OUTSIDE RECORDS SUMMARY | 2024-09-10 12:42 | XMS_ITS | Continuity of Care Document ---
Author Organization [facility] Cardiac Papi chandler Address [address] [place] [address]- Care Team Providers Care Healthcare Financial Analyst Name Role Phone Name Tone SEPULVEDA Primary Care Physician Encounter [facility] Date(s): 07/22/24 - 08/21/24 [facility] [address] [place] [address] Drive [address] [place], [place] [address] Encounter Type: Triage Allergies, Adverse Reactions, Alerts [...] Maintenance, 04/18/24 5:24:00 AM EDT, Solution, [id number], Partial fill upon patient request if the [...] Maintenance, 05/08/24 10:58:00 AM EDT, EC Tablet, [facility], Partial fill upon patient request if [...] 0 Refills, Maintenance, 04/19/24 7:55:00 AM EDT, [id number], 168, cm, 04/18/24 3:44:00 EDT, Height, 109, kg, 04/18/24 3:44:00 EDT, Dry Weight Start Date: 04/19/24 Status: Ordered Quantity: 70.0 Unit: tablet Repeat number: 1 isosorbide mononitrate 30 mg oral tablet, extended release 30 mg, By Mouth, Daily, # 90 tablet, Refills 0, Tot. Refills 0, Maintenance, 05/08/24 10:58:00 AM EDT, Route to Pharmacy Electronically, [facility], Partial fill upon patient [...] Refills, Maintenance, 06/04/23 11:41:00 AM EDT, Tablet, [id number], Partial fill upon patient request if [...] 0, Tot. Refills 0, Maintenance[facility], 08/15/22 1:54:00 PM EST, Supply, 167, cm, 08/15/22 13:01:00 EST, Height, 109, kg, 04/29/22 17:29:00 EDT, Dry Weight Start Date: 08/15/22 Status: Ordered Quantity: 3.0 Unit: each Repeat number: 1 Nyamyc 100,000 units/g topical powder See Instructions, APPLY TOPICALLY TO THE AFFECTED AREA TWICE DAILY., # 30 Gm, 1 Refills, Maintenance, 09/03/23 11:02:00 AM EST, [id number], 15, APPLY TOPICALLY TO THE AFFECTED AREA [...] Confirmed Active Glaucoma Confirmed Active History of [place] (myocardial infarction) Confirmed Active High cholesterol Confirmed [...] Care Team Personnel Name: Briana Santos Position: [facility] Onco RN Member Role: Primary Care Nurse Name: Kirstin Mello RN Position: [facility] RN Member Role: Primary Care Nurse Name: Eloisa Sutton RN Position: [facility] RN Member Role: Primary Care Nurse Name: Joan Pack RN Position: [facility] RN Supv Member Role: Primary Care Nurse Name: Ewelina Guerrero RN Position: [facility] RN Member Role: Primary Care Nurse Name: Marge Harmon RN Position: [facility] RN Member Role: Primary Care Nurse Name: Tone Cool MD Position: [facility] Outreach Member Role: PCP Address: [address] [place] [address]- Telecom: Name: Libyb Valentine RN Position: [facility] RN Member Role: Primary Care Nurse Name: Taylor Stuart RN Position: [facility] RN Member Role: Primary Care Nurse Name: Christianne Murguia RN Position: [facility] RN Member Role: Primary Care Nurse Name: Nery Dooley Position: [facility] Outreach Member Role: Lifetime Consulting Physician Name: Joan Amaya RN Position: [facility] RN Member Role: Primary Care Nurse Name: Sarah Hardwick RN Position: [facility] RN Member Role: Primary Care Nurse Name: Pam Crook LPN Position: [facility] RN Member Role: Primary Care Nurse Name: Heidi Bui RN Position: [facility] RN Member Role: Primary Care Nurse Name: Peri Skinner RN Position: [facility] RN Member Role: Primary Care Nurse Care Team Related Persons Name: NICK CROOK Name: ROGERS CROOK Insurance Providers Guarantor name: [facility] [email or web address] Plan Information #: 1 Payer: NA Member Number: NA Policy Number: NA Group Number: NA Health Plan Information #: 2 Payer: [facility] CARE Member Number: NA Policy Number: NA Group Number: NA Health Plan Information #: 3 Payer: [facility] Member Number: NA Policy Number: NA Group Number: NA
[2024-09-10 17:20] VITALS: BP 161/85; PULSE 73; RESP 18; TEMP 36.1; O2SAT 95
[2024-09-10 17:36] LABS: Appearance Urine Clear; Color Urine Yellow; Glucose Urine UA Negative (Negative); Leukocyte Esterase Urine Negative (Negative); Nitrite Urine Negative (Negative); Urine Blood Negative (Negative); Urine Ketones Trace mg/dL (Negative); Urine Protein Negative (Neg-Trace)
[2024-09-10] MEDS: Phenazopyridine HCL 200 MG TABLET PO (19:08)
[2024-09-10 19:42] VITALS: BP 175/97; PULSE 79; RESP 18; O2SAT 94
[2024-09-10 20:39] VITALS: BP 175/97; PULSE 79; RESP 18; TEMP 36.1
[2024-09-10 20:50] VITALS: BP 175/97; PULSE 79; RESP 18; TEMP 36.1; O2SAT 97
== END 2024-09-10 20:53 | disposition home or self-care (01) ==
PROVIDERS: Registered Nurse Emergency; Emergency Provider Emergency Medicine; PCP Internal Medicine Geriatric Medicine
DX: R33.9 Retention of urine, unspecified (principal); N32.81 Overactive bladder; R10.2 Pelvic and perineal pain; I10 Essential (primary) hypertension; E03.9 Hypothyroidism, unspecified; J45.909 Unspecified asthma, uncomplicated; Z03.818 Encounter for observation for suspected exposure to other biological agents ruled out; Z79.899 Other long term (current) drug therapy
CPT/HCPCS: 0241U; 51702; 74176; 80053; 81003; 83690; 84484; 85025; 85610; 93005; 99284; 99285

== ENCOUNTER → 2024-09-10 11:09 | Outpatient (BNV) | payer MEDICARE, MEDICAID, SELFPAY | PROVIDERS: PCP Internal Medicine Geriatric Medicine; Visit Provider Internal Medicine Cardiovascular Disease | DX: R94.31 Abnormal electrocardiogram [ECG] [EKG] (principal) | CPT/HCPCS: 93010 ==

== ENCOUNTER → 2024-09-10 17:17 | Outpatient (BNV) | payer MEDICARE, MEDICAID, SELFPAY | PROVIDERS: Emergency Provider Emergency Medicine; PCP Internal Medicine Geriatric Medicine; Visit Provider Specialist | DX: R33.9 Retention of urine, unspecified (principal) | CPT/HCPCS: 74176 ==

== ENCOUNTER 2025-01-26 12:54 | Outpatient (REF) | payer MEDICARE, SELFPAY ==
--- OUTSIDE RECORDS SUMMARY | 2025-01-26 13:32 | XMS_ITS | Encounter Summary ---
Author Organization [facility] Address [address] [place] [address] Care Team Providers Care Chip Drier Name Role Phone Name, Tone SEPULVEDA Primary Care Provider Unavailabl e Reason for Visit * Reason Onset Date Comments Form 07/02/2022 Encounter Details Date Type Department Care Team Description 07/02/2022 Telephone Pulmonology - [place] [address] [facility] [address] [place] [address] Sean Heart MD [address] [place] [phone] Form Social History Tobacco Use Types Packs/Day Years Used Date Smoking Tobacco: Heavy Smoker Cigarettes 1 35 Started: 976; Last attempted to quit: 09/08/2013 Smokeless Tobacco: Never Comments:Current occ smoker. Alcohol Use Standard Drinks/Week Comments No 0 (1 standard drink = 0.6 oz pur e alcohol) Sex Assigned at Date Recorded Not on file Job Start Date Occupation Industry Not on file Not on file Not on file documented as of this encounter Miscellaneous Notes * Telephone Encounter - Iris Cohen - 07/02/2022 3:30 PM EDT Certificate of medical necessity received to be sign and fax documented in this encounter Plan of Treatment Not on file documented as of this encounter Visit Diagnoses Not on filedocumented in this encounter Care Teams Chip Drier Relationship Specialty Start Date End Date Name, MD Tone PCP - General Internal Medicine 03/04/22 documented as of this encounter
--- OUTSIDE RECORDS SUMMARY | 2025-01-26 13:32 | XMS_ITS | Encounter Summary ---
Author Organization [facility] Address [address] [place] [address] Care Team Providers Care Sheeting Puller Name Role Phone Homero Aranda MD Primary Care Provider [phone] [facility], Pcp Primary Care Provider Unavailabl e Silvia Rodriguez MD Primary Care Provider Isi howe Name, Tone SEPULVEDA Primary Care Provider Unavailabl e Reason for Visit * Reason Onset Date Comments Testing 11/13/2016 Encounter Details Date Type Department Care Team Description 11/13/2016 Telephone Radiology - [address] [address] Sriram Ji MD Testing Social History Tobacco Use Types Packs/Day Years Used Date Smoking Tobacco: Former Cigarettes 2 10 Q uit: 09/08/2013 Smokeless Tobacco: Former Alcohol Use Standard Drinks/Week Comments No 0 (1 standard drink = 0.6 oz pur e alcohol) Sex Assigned at Date Recorded Not on file Job Start Date Occupation Industry Not on file Not on file Not on file documented as of this encounter Miscellaneous Notes * Telephone Encounter - Viola Espinal - 11/13/2016 1:52 PM EST Annie Estes has not responded to the telephone calls that were made to schedule a US SOFT TISSUE HEAD/NECK Therefore we are removing the test from our Scheduled Orders Report. Please note that this test must be reordered if required in the future. Thank you, Radiology documented in this encounter Plan of Treatment Not on file documented as of this encounter Visit Diagnoses Not on filedocumented in this encounter Care Teams Sheeting Puller Relationship Specialty Start Date End Date Homero Aranda MD [address] [place] [address] PCP - General Internal Medicine 07/10/15 03/13/17 [facility], [address] [address] PCP - General Internal Medicine 03/14/17 05/18/17 Silvia Rodriguez MD [address] [place] [address] PCP - General 05/19/17 03/03/22 Name, MD Tone [address] [place] [address] PCP - General Internal Medicine 03/04/22 documented as of this encounter
--- OUTSIDE RECORDS SUMMARY | 2025-01-26 13:32 | XMS_ITS | Encounter Summary ---
Author Organization [facility] Address [address] [place] [address] Care Team Providers Care Balance Bridge Inspector Name Role Phone Silvia Rodriguez MD Primary Care Provider Tone Barber MD Primary Care Provider Unavailnathan e Encounter Details Date Type Department Care Team Description 09/10/2021 Orders Only [facility] Lung Screening Program [address] [phone] Arnaud Phillips MD [address] [facility] [place] [address] [place] [address] Social History Tobacco Use Types Packs/Day Years [...] on file documented as of this encounter Plan of Treatment Not on file documented as of this encounter Procedures Procedure Name Priority Date/Time Associated Diagnosis Comments CT LOW DOSE LUNG SCREEN ANNUAL Routine 09/07/2021 documented in this encounter Results * CT LOW DOSE LUNG SCREEN ANNUAL (09/07/2021) Arnaud Phillips MD CT SCANS documented in this encounter Visit Diagnoses Not on filedocumented in this encounter Care Teams Balance Bridge Inspector Relationship Specialty Start Date End Date Silvia Rodriguez MD PCP - General 05/19/17 03/03/22 Name, MD Tone PCP - General Internal Medicine 03/04/22 documented as of this encounter
--- OUTSIDE RECORDS SUMMARY | 2025-01-26 13:32 | XMS_ITS | Encounter Summary ---
Author Organization [employer] Address [address] [facility] 7t [place] [address] Care Team Providers Care Seam Rubber Name Role Phone Name, Tone SEPULVEDA Primary Care Provider [phone] Encounter Details Date Type Department Care Team (Late st Contact Info) Description 01/03/2023 Telephone [facility] MEDICINE [address] [place], [place] [phone] Name, MD Tone [address] [place] [address] Social History Tobacco Use Types Packs/Day Years Used Date Smoking Tobacco: Every Day Cigarettes Smokeless Tobacco: Never Depression Answer Date Recorded Patient Health Questionnaire-9 Score 0 12/25/2022 Depression Answer Date Recorded Patient Health Questionnaire-2 Score 0 12/25/2022 Comments Unknown Sex and Gender Information Value Date Recorded Sex Assigned at Female 07/08/2022 10:31 AM EDT Legal Sex Female 10:31 AM EDT Gender Identity Female 07/08/2022 10:31 AM EDT Sexual Orientation Choose not to disclose 2021 10:31 AM EDT COVID-19 Exposure Response Date Recorded In the last 10 days, have yo u been in contact with someone who was confirmed or suspected to have Coronavirus/COVID-19? No / Unsure 12/25/2022 1:37 PM EDT documented as of this encounter Plan of Treatment Upcoming Encounters Date Type Department Care Team (Late st Contact Info) Description 02/02/2025 2:00 PM EDT Office Visit [facility] ADULT DENTAL [address] [place], [place] [phone] Danny Coleman DDS [address] [place] [address] 04/19/2025 2:45 PM EDT Office Visit [facility] MED[facility] [address] [place] [address] Name, MD Tone [address] [place] [address] documented as of this encounter Visit Diagnoses Not on filedocumented in this encounter Additional Health Concerns Assessment Noted Time PHQ-9 Depression Total Score: 0 12/26/19 23 1:52 PM EDT documented as of this encounter Care Teams Seam Rubber Relationship Specialty Start Date End Date Name, MD Tone [address] [place] [address] PCP - General Family Medicine 08/17/19 documented as of this encounter
--- OUTSIDE RECORDS SUMMARY | 2025-01-26 13:32 | XMS_ITS | Encounter Summary ---
Author Organization [facility] Address [address] [place] [address] Care Team Providers Care Patient Support Assistant Name Role Phone Homero Aranda MD Primary Care Provider [phone] [facility], Pcp Primary Care Provider Unavailabl Silvia Hodgson MD Primary Care Provider Isi howe NameTone MD Primary Care Provider Unavailabl e Encounter Details Date Type Department Care Team Description 12/03/2016 [facility] [address] [place] [address] Abstract, Provider Social History Tobacco Use Types Packs/Day Years [...] Procedure Name Priority Date/Time Associated Diagnosis Comments OUTSIDE EKG Routine 11/27/2016 OUTSIDE PLAIN FILM Routine 11/27/2016 OUTSIDE LAB Routine 11/27/2016 documented in this encounter Results * OUTSIDE PLAIN FILM (11/27/2016) Provider Abstract RADIOLOGY * OUTSIDE LAB (11/27/2016) Provider Abstract LAB * OUTSIDE EKG (11/27/2016) Provider Abstract CARDIOLOGY documented in this encounter Visit Diagnoses Not on filedocumented in this encounter Care Teams Patient Support Assistant Relationship Specialty Start Date End Date Homero Aranda MD [address] [place] [address] PCP - General Internal Medicine 07/10/15 03/13/17 [facility], Pcp [address] [place] [address] PCP - General Internal Medicine 03/14/17 05/18/17 Al-Silvia Powers MD [address] [place] [address] PCP - General 05/19/17 03/03/22 Name, MD Tone [address] [place] [address] PCP - General Internal Medicine 03/04/22 documented as of this encounter
--- OUTSIDE RECORDS SUMMARY | 2025-01-26 13:32 | XMS_ITS | Encounter Summary ---
Author Organization [employer] Address [address] [facility] 7t [place] [address] Care Team Providers Care Heritage Consultant Name Role Phone Name, Tone SEPULVEDA Primary Care Provider [phone] Reason for Visit * Reason Onset Date Comments Med Refill 10/22/2022 new script 10/22/2022 Encounter Details Date Type Department Care Team ([facility] st Contact Info) Description 10/22/2022 Telephone [facility] MEDICINE [address] [place], [place] [phone] Name, MD Tone [address] [place] [address] Med Refill; new script Social History Tobacco Use Types Packs/Day Years Used Date Smoking Tobacco: Every Day Cigarettes Smokeless Tobacco: Never Comments Unknown Sex and Gender Information Value [...] suspected to have Coronavirus/COVID-19? No / Unsure 10/18/2022 2:27 PM EST documented as of this encounter Miscellaneous Notes * Telephone Encounter - Aga Felipe - 10/22/2022 2:46 PM EST TC from pt requesting a new script for medication Phenytoin 100mg. PT stated medication was prescribe by Neurologist but Office is closed. Pt stated only has 1 day left. PCP Name documented in this encounter Plan of Treatment Upcoming Encounters Date Type Department Care Team (Late st Contact Info) Description 02/02/2025 2:00 PM EDT Office Visit [facility] ADULT DENTAL [address] [place], [place] [phone] Danny Coleman DDS [address] [place] [address] 04/19/2025 2:45 PM EDT Office Visit [facility] MEDICINE [address] [place] [address] Name, MD Tone [address] [place] [address] documented as of this encounter Visit Diagnoses Not on filedocumented in this encounter Care Teams Heritage Consultant Relationship Specialty Start Date End Date Name, MD Tone [address] [place] [address] PCP - General Family Medicine 08/17/19 documented as of this encounter
--- OUTSIDE RECORDS SUMMARY | 2025-01-26 13:32 | XMS_ITS | Encounter Summary ---
Author Organization [employer] Address [address] [facility] 7t [place] [address] Care Team Providers Care Clinic Assistant Name Role Phone Name, Tone SEPULVEDA Primary Care Provider [phone] Reason for Visit * Reason Onset Date Comments Status Request 02/26/2024 Encounter Details Date Type Department Care Team ([facility] st Contact Info) Description 02/26/2024 Telephone [facility] MEDICINE [address] [place] [address] Name, MD Tone [address] [place] [address] Status Request Social History Tobacco Use Types Packs/Day Years Used Date Smoking Tobacco: Some Days Cigarettes Smokeless Tobacco: Never Depression Answer Date Recorded Patient Health Questionnaire-9 Score 11 01/14/2024 Patient Health Questionnaire-9 Score 11 01/14/2024 Last PHQ-9: Questionnaire Data Not on file 0 01/14/2024 Housing Stability Answer Date Recorded What is your housing situation today? I have matthew up 10/06/[address] you li ve. Do you have problems with any of the following? None of the above 10/06/2023 Food Insecurity Answer Date Recorded Within the past 12 months, y ou worried that your food would run out before you got money to buy more: Never True 10/06/2023 Within the past 12 months,th e food you bought just didn't last and you didn't have enough money to get more: Never True Transportation Answer Date Recorded In the past 12 months, has l ack of transportation kept you from medical appts, meetings, work or from getting things needed for daily living? No 10/06/2023 Utilities Answer Date Recorded In the past 12 months, has t he electric, gas, oil or water company threatened to shut off services in your home? No 10/06/2023 Depression Answer Date Recorded Patient Health Questionnaire-2 Score 4 01/14/2024 Comments Unknown Sex and Gender Information Value Date Recorded Sex Assigned at Female 07/08/2022 10:31 AM EDT Legal Sex Female 10:31 AM EDT Gender Identity Female 07/08/2022 10:31 AM EDT Sexual Orientation Choose not to disclose 2021 10:31 AM EDT documented as of this encounter Functional Status * Over the last 2 weeks, how often have you been bothered by any of the following problems? Question Answer Date of Assessment Author Feeling nervous, anxious, or on edge 1 02/07 12:49 PM EDT Tanya Ellison RN Not being able to stop or co ntrol worrying 2 02/27/2024 12:49 PM EDT Tanya Ellison R N Worrying too much about diff erent things 3 02/27/2024 12:49 PM EDT Tanya Ellison R N Trouble relaxing 3 02/27/2024 12:49 PM EDT Tanya Ellison RN Being so restless that it is hard to sit still 3 02/27/2024 12:49 PM EDT Tanya Ellison R N Becoming easily annoyed or irritable 3 02/07 12:49 PM EDT Tanya Ellison RN Feeling afraid as if somethi ng awful might happen 2 02/27/2024 12:49 PM EDT Tanya Ellison R N ESTHER-7 Total Score 17 02/27/2024 12:49 PM EDT Tanya Ellison RN documented as of this encounter Miscellaneous Notes * Telephone Encounter - Fernando Keller RN - 02/26/2024 1:40 PM EDT Please review and advise for below request. RN cannot see any discussion during last visit. T/C to pt. For further information, No answer. Not able to LVM. * Telephone Encounter - Pio Carolina - 02/26/2024 1:09 PM EDT Tc from pt requesting status on gym referral for [employer], pt stated she spoke with pcp during last OV. Please contact pt at [phone]. documented in this encounter Plan of Treatment Upcoming Encounters Date Type Department Care Team (Late st Contact Info) Description 02/02/2025 2:00 PM EDT Office Visit [facility] ADULT DENTAL [address] [place] [address] Danny Coleman DDS [address] [place] [address] 04/19/2025 2:45 PM EDT Office Visit [facility] MEDICINE [address] [place] [address] Name, MD Tone [address] [place] [address] documented as of this encounter Visit Diagnoses Not on filedocumented in this encounter Additional Health Concerns Assessment Noted Time PHQ-9 Depression Total Score: 11 024 2:10 PM EDT documented as of this encounter Care Teams Clinic Assistant Relationship Specialty Start Date End Date Name, MD Tone [address] [place] [address] PCP - General Family Medicine 08/17/19 documented as of this encounter
--- OUTSIDE RECORDS SUMMARY | 2025-01-26 13:32 | XMS_ITS | Encounter Summary ---
Author Organization [employer] Address [address] [facility] 7t [place] [address] Care Team Providers Care Accounts Receivable Clerk Name Role Phone Name, Tone SEPULVEDA Primary Care Provider [phone] Reason for Visit * Reason Onset Date Comments Med Refill 02/26/2024 Encounter Details Date Type Department Care Team ([facility] st Contact Info) Description 02/26/2024 Refill [facility] MEDICINE [address] [place] [address] Name, MD Tone [address] [place] [address] Chronic back pain, unspecified back location, unspecified back pain laterality Social History Tobacco Use Types Packs/Day Years [...] irritable 3 02/07 12:49 PM EDT Tanya Ellison, [place] Feeling afraid as if somethi ng awful might happen 2 02/27/2024 12:49 PM EDT Tanya Ellison R N ESTHER-7 Total Score 17 02/27/2024 12:49 PM EDT Tanya Ellison RN documented as of this encounter Miscellaneous Notes * Telephone Encounter - Viola Gamino LPN - 02/26/2024 1:32 PM EDT INDUSTRIAL LABORER checked 02/26/24. Next appointment 03/23/24. * Telephone Encounter - Pio Carolina - 02/26/2024 1:08 PM EDT TC from pt requesting medication refill. Medications needing refill: pregabalin (Lyrica) 300 MG capsule To be sent to: [facility] Pharmacy documented in this encounter Plan of Treatment Upcoming Encounters Date Type Department Care Team (Late st Contact Info) Description 02/02/2025 2:00 PM EDT Office Visit [facility] ADULT DENTAL [address] [place] [address] Danny Coleman DDS [address] [place] [address] 04/19/2025 2:45 PM EDT Office Visit [facility] MEDICINE [address] [place] [address] Name, MD Tone [address] [place] [address] documented as of this encounter Visit Diagnoses Diagnosis Chronic back pain, unspecified back location, unspecified back pain laterality documented in this encounter Additional Health Concerns Assessment Noted Time PHQ-9 Depression Total Score: 11 024 2:10 PM EDT documented as of this encounter Care Teams Accounts Receivable Clerk Relationship Specialty Start Date End Date NameTone MD [address] [place] [address] PCP - General Family Medicine 08/17/19 documented as of this encounter
--- OUTSIDE RECORDS SUMMARY | 2025-01-26 13:32 | XMS_ITS | Encounter Summary ---
Author Organization [facility] Address [address] [place] [address] Care Team Providers Care Spooler Operator Name Role Phone Name, Tone SEPULVEDA Primary Care Provider Unavailabl e Reason for Visit * Reason Comments E-prescribe Rx Request Encounter Details Date Type Department Care Team Description 09/07/2022 Refill Pulmonology - [place] 175 [facility] [address] [place] [address] Sean Heart MD [address] [place] [phone] E-prescribe Rx Request Social History Tobacco Use Types Packs/Day [...] of this encounter Visit Diagnoses Diagnosis Chronic obstructive pulmonary disease, unspecified COPD type (HCC) documented in this encounter Care Teams Spooler Operator Relationship Specialty Start Date End Date Name, MD Tone PCP - General Internal Medicine 03/04/22 documented as of this encounter
--- OUTSIDE RECORDS SUMMARY | 2025-01-26 13:32 | XMS_ITS | Encounter Summary ---
Author Organization [facility] Address [address] [place] [address] Care Team Providers Care Pie Bottomer Name Role Phone Homero Aranda MD Primary Care Provider [phone] Community, Pcp Primary Care Provider Unavailabl e Silvia Rodriguez MD Primary Care Provider Isi howe Name, Tone SEPULVEDA Primary Care Provider Unavailabl e Encounter Details Date Type Department Care Team Description 11/24/2016 Orders Only Pulmonology [address] [place] [address] Alfredo Solis MD [address] [place] [id number] Pulmonary emphysema, unspecified emphysema type (HCC) Social History Tobacco Use Types Packs/Day Years [...] Procedure Name Priority Date/Time Associated Diagnosis Comments CHG BLOOD GASES ANY COMBINATION PH PCO2 PO2 CO2 HCO3 Routine 11/14/2016 Pulmonary emphysema, unspecified emphysema type (HCC) documented in this encounter Results * ASSAY, BLOOD GASES: PH/PO2/PCO2/ETC (11/14/2016) 11/14/2016 Alfredo Solis MD LAB [facility] [employer] documented in this encounter Visit Diagnoses Diagnosis Pulmonary emphysema, unspecified emphysema type (HCC) documented in this encounter Care Teams Pie Bottomer Relationship Specialty Start Date End Date Homero Aranda MD [address] [place] [address] PCP - General Internal Medicine 07/10/15 03/13/17 [facility], Pcp [address] [place] [address] PCP - General Internal Medicine 03/14/17 05/18/17 Silvia Rodriguez MD [address] [place] [address] PCP - General 05/19/17 03/03/22 Name, MD Tone [address] [place] [address] PCP - General Internal Medicine 03/04/22 documented as of this encounter
--- OUTSIDE RECORDS SUMMARY | 2025-01-26 13:32 | XMS_ITS | Encounter Summary ---
Author Organization [employer] Address [address] [facility] 7t [place] [address] Care Team Providers Care Geothermal Installer Name Role Phone Name, Tone SEPULVEDA Primary Care Provider [phone] Reason for Visit * Reason Comments Med Refill Encounter Details Date Type Department Care Team ([facility] Contact Info) Description 11/15/2022 Refill [facility] [address] [place], [place] [phone] [facility] [address] [place] [address] Social History Tobacco Use Types Packs/Day Years [...] PM EST documented as of this encounter Plan of Treatment Upcoming Encounters Date Type Department Care Team ([facility] Contact Info) Description 02/02/2025 2:00 PM EDT Office Visit [facility] ADULT DENTAL [address] [place], [place] [phone] Danny Coleman DDS [address] [place], [place] [phone] 04/19/2025 2:45 PM EDT Office Visit [facility] MEDICINE [address] [place] [address] Name, MD Tone [address] [place] [address] documented as of this encounter Visit Diagnoses Not on filedocumented in this encounter Care Teams Geothermal Installer Relationship Specialty Start Date End Date Name, [place] [address] PCP - General Family Medicine 08/17/19 documented as of this encounter
--- OUTSIDE RECORDS SUMMARY | 2025-01-26 13:32 | XMS_ITS | Encounter Summary ---
Author Organization [employer] Address 75 [facility] 7t [place] [address] Care Team Providers Care Sewing Machine Operator Paper Bags Name Role Phone Name, Tone SEPULVEDA Primary Care Provider [phone] Reason for Visit * Reason Onset Date Comments Lab Orders 03/19/2024 Encounter Details Date Type Department Care Team ([facility] st Contact Info) Description 03/19/2024 Telephone [facility] MEDIC[facility] [address] [place] [address] Name, MD Tone [address] [place] [address] Lab Orders Social History Tobacco Use Types Packs/Day Years [...] AM EDT documented as of this encounter Miscellaneous Notes * Telephone Encounter - Fernando Keller RN - 03/19/2024 10:57 AM EDT T/C to pt. To inform that lab order is in system, pt. Advised to go to lab. Pt. Verbally agreed andunderstood. * Telephone Encounter - Toni Galdamez - 03/19/2024 10:00 AM EDT Tc from patient requesting lab orders for TB due to home care documented in this encounter Plan of Treatment Upcoming Encounters Date Type Department Care Team (Late st Contact Info) Description 02/02/2025 2:00 PM EDT Office Visit [facility] ADULT DENTAL [address] [place] [address] Danny Coleman DDS [address] [place] [address] 04/19/2025 2:45 PM EDT Office Visit [facility] [address] [place] [address] Name, MD Tone [address] [place] [address] documented as of this encounter Visit Diagnoses Not on filedocumented in this encounter Additional Health Concerns Assessment Noted Time PHQ-9 Depression Total Score: 11 024 2:10 PM EDT documented as of this encounter Care Teams Sewing Machine Operator Paper Bags Relationship Specialty Start Date End Date Name, MD Tone [address] [place] [address] PCP - General Family Medicine 08/17/19 documented as of this encounter
--- OUTSIDE RECORDS SUMMARY | 2025-01-26 13:32 | XMS_ITS | Encounter Summary ---
Author Organization [employer] Address 75 [facility] 7t [place] [address] Care Team Providers Care Health Promotion Specialist Name Role Phone NameTone MD Primary Care Provider [phone] Reason for Visit * Reason Onset Date Comments Medication Question 10/17/2022 Encounter Details Date Type Department Care Team ([facility] st Contact Info) Description 10/17/2022 Telephone [facility] MEDICINE [address] [place], [place] [phone] Name, MD Tone [address] [place] [address] Medication Question Social History Tobacco Use Types Packs/Day Years [...] encounter Miscellaneous Notes * Telephone Encounter - Yady Allen RN - 10/17/2022 10:07 AM EST Noted thank you. * Telephone Encounter - Tone Cool MD - 10/17/2022 10:04 AM EST Yes, I will send the med * Telephone Encounter - Yady Allen RN - 10/17/2022 9:50 AM EST Please review message below and advise if Colace can be taken 2 capsules at a time. * Telephone Encounter - Saeid Horner - 10/17/2022 9:19 AM EST Tc from pt requesting new script for docusate sodium 100mg, pt states 1 is not working and would like to take 2 a day. Pt states only has 5 tablets left for docusate sodium. Please contact pt at [phone] documented in this encounter Plan of Treatment Upcoming Encounters Date Type Department Care Team (Late st Contact Info) Description 02/02/2025 2:00 PM EDT Office Visit [facility] ADULT DENTAL [address] [place] [address] Danny Coleman DDS [address] [place] [address] 04/19/2025 2:45 PM EDT Office Visit [facility] MEDICINE [address] [place] [address] Name, MD Tone [address] [place] [address] documented as of this encounter Visit Diagnoses Diagnosis Therapeutic opioid induced constipation- Primary Constipation, unspecified constipation type documented in this encounter Care Teams Health Promotion Specialist Relationship Specialty Start Date End Date Tone Cool MD [address] [place] [address] PCP - General Family Medicine 08/17/19 documented as of this encounter
--- OUTSIDE RECORDS SUMMARY | 2025-01-26 13:32 | XMS_ITS | Encounter Summary ---
Author Organization [employer] Address 75 [facility] 7t [place] [address] Care Team Providers Care Set Off Blocker Name Role Phone Name, Tone SEPULVEDA Primary Care Provider [phone] Reason for Visit * Reason Comments Med Refill Encounter Details Date Type Department Care Team (Late Contact Info) Description 11/04/2022 Refill [facility] MEDICINE [address] [place], [place] [phone] Name, MD Tone 230 [place] [address] Anxiety disorder, unspecified Social History Tobacco Use Types Packs/Day Years [...] Encounters Date Type Department Care Team (Late Contact Info) Description 02/02/2025 2:00 PM EDT Office Visit [facility] ADULT DENTAL [address] [place], [place] [phone] Danny Coleman DDS [address] [place], [place] [phone] 04/19/2025 2:45 PM EDT Office Visit [facility] MEDICINE [address] [place] [address] Name, [place] [address] documented as of this encounter Visit Diagnoses Diagnosis Anxiety disorder, unspecified documented in this encounter Care Teams Set Off Blocker Relationship Specialty Start Date End Date Name, [place] [address] PCP - General Family Medicine 08/17/19 documented as of this encounter"
--- OUTSIDE RECORDS SUMMARY | 2025-01-26 13:32 | XMS_ITS | Encounter Summary ---
Author Organization [facility] Address [address] [place] [address] Care Team Providers Care Quail Farmer Name Role Phone Homero Aranda MD Primary Care Provider [phone] [place], Pcp Primary Care Provider Unavailnathan e Silvia Rodriguez MD Primary Care Provider Tone Barber MD Primary Care Provider Unavailabl e Encounter Details Date Type Department Care Team Description 12/05/2016 Controlled Substance Contract with Plan Medical Records [address] [place] [address] Abstract, Provider Social History Tobacco Use Types [...] on filedocumented in this encounter Care Teams Quail Farmer Relationship Specialty Start Date End Date Homero Aranda MD [address] [place] [address] PCP - General Internal Medicine 07/10/15 03/13/17 Mark Coronel [address] [place] [address] PCP - General Internal Medicine 03/14/17 05/18/17 Silvia Rodriguez MD [address] [place] [address] PCP - General 05/19/17 03/03/22 Tone Cool MD [address] [place] [address] PCP - General Internal Medicine 03/04/22 documented as of this encounter
--- OUTSIDE RECORDS SUMMARY | 2025-01-26 13:32 | XMS_ITS | Encounter Summary ---
Author Organization [employer] Address [address] [facility] 7t [place] [address] Care Team Providers Care Unified Communications Architect Name Role Phone Name, Tone SEPULVEDA Primary Care Provider [phone] Reason for Visit * Reason Onset Date Comments Referral 03/17/2024 Encounter Details Date Type Department Care Team ([facility] st Contact Info) Description 03/17/[address] [facility] MEDICINE [address] [place] [address] Name, MD Tone [address] [place] [address] Referral Social History Tobacco Use Types Packs/Day Years [...] Telephone Encounter - Fernando Keller RN - 04/14/2024 1:17 PM EDT T/C to pt. For below message, pt. Is looking for letter that says, pt. Can go to gym. Spoke with PCP, In last apt. Pt. Spoke to PCP states she is having chest pain, T/C to pt. For further clarification, no answer. LVM to call back on [phone]. * Telephone Encounter - Toni Galdamez - 04/14/2024 10:55 AM EDT Tc from patient request the status in regards to the message below * Telephone Encounter - Fernando Keller RN - 03/17/2024 4:35 PM EDT T/C to pt. For below message. Pt. States she had fall before 2-3 months ago. She also has osteoarthritis, looking for referral for [employer] ([employer]), states she already discussed with PCP. RN cannot see any notes about request. Please review and advise for below request. * Telephone Encounter - Toni Galdamez - 03/17/2024 3:05 PM EDT Tc from patient calling to request the status of the referral for [employer] documented in this encounter Plan of Treatment Upcoming Encounters Date Type Department Care Team (Late st Contact Info) Description 02/02/2025 2:00 PM EDT Office Visit [facility] ADULT DENTAL [address] [place] [address] Danny Coleman DDS [address] [place] [address] 04/19/2025 2:45 PM EDT Office Visit [facility] MEDICINE [address] [place] [address] Name, MD Tone [address] [place] [address] documented as of this encounter Visit Diagnoses Not on filedocumented in this encounter Additional Health Concerns Assessment Noted Time PHQ-9 Depression Total Score: 11 024 2:10 PM EDT documented as of this encounter Care Teams Unified Communications Architect Relationship Specialty Start Date End Date Name, MD Tone [address] [place] [address] [phone] PCP - General Family Medicine 08/17/19 documented as of this encounter
--- OUTSIDE RECORDS SUMMARY | 2025-01-26 13:33 | XMS_ITS | Encounter Summary ---
Author Organization [employer] Address 75 [facility] 7t [place] [address] Care Team Providers Care Lining Brusher Name Role Phone Name, Tone SEPULVEDA Primary Care Provider [phone] Reason for Visit * Reason Onset Date Comments status request 04/07/2024 Encounter Details Date Type Department Care Team ([facility] st Contact Info) Description 04/07/2024 Telephone [facility] MEDICINE [address] [place] [address] Name, MD Tone [address] [place] [address] status request Social History Tobacco Use Types Packs/Day Years [...] Telephone Encounter - Fernando Keller RN - 04/07/2024 4:05 PM EDT Please review and advise for below request. Tc from pt calling stating she has no showed over [address] Portillo and they will not be able to see pt, she is now requesting new referral for neurology. * Telephone Encounter - Fernando Keller RN - 04/07/2024 4:03 PM EDT Please review and advise if needed for below request. Tc from pt requesting status on form for adult foster care stating it has been signed a week ago but has not received any update. Please contact pt at [phone]. * Telephone Encounter - Pio Carolina - 04/07/2024 3:25 PM EDT Tc from pt calling stating she has no showed over [address] Portillo and they will not be ableto see pt, she is now requesting new referral for neurology. If any questions you can contact [t at [phone]. * Telephone Encounter - Pio Carolina - 04/07/2024 2:45 PM EDT Tc from pt requesting status on form for adult foster care stating it has been signed a week ago but has not received any update. Please contact pt at [phone]. documented in this encounter Plan of Treatment Upcoming Encounters Date Type Department Care Team (Late st Contact Info) Description 02/02/2025 2:00 PM EDT Office Visit [facility] ADULT DENTAL [address] [place] [address] Danny Coleman DDS [address] [place] [address] 04/19/2025 2:45 PM EDT Office Visit [facility] MEDICINE [address] [place] [address] Name, MD Tone [address] [place] [address] documented as of this encounter Visit Diagnoses Not on filedocumented in this encounter Additional Health Concerns Assessment Noted Time PHQ-9 Depression Total Score: 11 024 2:10 PM EDT documented as of this encounter Care Teams Lining Brusher Relationship Specialty Start Date End Date NameTone MD [address] [place] [address] PCP - General Family Medicine 08/17/19 documented as of this encounter
--- OUTSIDE RECORDS SUMMARY | 2025-01-26 13:33 | XMS_ITS | Encounter Summary ---
Author Organization [facility] Address [address] [place] [address] Care Team Providers Care Landscape Designer Name Role Phone Homero Aranda MD Primary Care Provider [phone] [facility], Pcp Primary Care Provider Unavailabl e Silvia Rodriguez MD Primary Care Provider Isi howe Name, Tone SEPULVEDA Primary Care Provider Unavailabl e Reason for Visit * Reason Onset Date Comments DME Request 01/28/2017 Portable CPAP maldonado aravind Encounter Details Date Type Department Care Team Description 01/28/2017 Telephone Adult Medicine [address] [address] Homero Aranda MD [address] [place] [address] DME Request (Portable CPAP machine) Social History Tobacco Use Types Packs/Day Years Used Date Smoking Tobacco: Former Cigarettes 2 10 Q uit: 09/08/2013 Smokeless Tobacco: Never Alcohol Use Standard Drinks/Week Comments No 0 (1 standard drink = 0.6 oz pur e alcohol) Sex Assigned at Date Recorded Not on file Job Start Date Occupation Industry Not on file Not on file Not on file documented as of this encounter Miscellaneous Notes * Telephone Encounter - Hoda Dukes M.A. - 02/04/2017 11:42 AM EDT Called several times no answer and could not leave message * Telephone Encounter - Gabbi King - 01/28/2017 10:49 AM EDT Name of Product: Portable CPAP machine-Need MANFRED Specific information about product portable # Needed 1 Reason patient is asking for this supply? Mother had a heart attack and needs to travel to [place] Have you received this supply before? If yes , when?: no Have you discussed the need for this supply with a provider at a recent visit? NO If yes, with who and when? N/A When completed: Fax to other office/MD at fax # Crystal Have you told the patient it will take 7-10 days for completion of this request? YES documented in this encounter Plan of Treatment Not on file documented as of this encounter Visit Diagnoses Not on filedocumented in this encounter Care Teams Landscape Designer Relationship Specialty Start Date End Date Homero Aranda MD [address] [place] [address] PCP - General Internal Medicine 07/10/15 03/13/17 [facility], Pcp [address] [place] [address] PCP - General Internal Medicine 03/14/17 05/18/17 Fredy-Silvia Powers MD [address] [place] [address] PCP - General 05/19/17 03/03/22 Silvina, MD Tone [address] [place] [address] PCP - General Internal Medicine 03/04/22 documented as of this encounter
--- OUTSIDE RECORDS SUMMARY | 2025-01-26 13:33 | XMS_ITS | Encounter Summary ---
Author Organization [facility] Address [address] [place] [address] Care Team Providers Care Kiln Feeder Name Role Phone Homero Aranda MD Primary Care Provider Homer, Pcp Primary Care Provider Silvia Ross MD Primary Care Provider Tone Barber MD Primary Care Provider Unavailnathan e Encounter Details Date Type Department Care Team Description 11/06/2016 Release of Information Medical Records [address] [place] [id number] Abstract, Provider Social History Tobacco Use Types [...] on filedocumented in this encounter Care Teams Kiln Feeder Relationship Specialty Start Date End Date Homero Aranda MD [address] [place] [address] PCP - General Internal Medicine 07/10/15 03/13/17 Mark Coronel [address] [place] [address] PCP - General Internal Medicine 03/14/17 05/18/17 Silvia Rodriguez MD [address] [place] [address] PCP - General 05/19/17 03/03/22 Tone Cool MD [address] [place] [address] PCP - General Internal Medicine 03/04/22 documented as of this encounter
--- OUTSIDE RECORDS SUMMARY | 2025-01-26 13:33 | XMS_ITS | Encounter Summary ---
Author Organization [employer] Address 75 [facility] 7t [place] [address] Care Team Providers Care Geotechnical Laboratory Technician Name Role Phone Name, Tone SEPULVEDA Primary Care Provider [phone] Reason for Visit * Reason Comments Med Refill Encounter Details Date Type Department Care Team ([facility] st Contact Info) Description 02/02/2024 Refill [facility] MEDICINE [address] [place] [address] Name, MD Tone [address] [place] [address] Wheezing Social History Tobacco Use Types Packs/Day Years [...] AM EDT documented as of this encounter Plan of Treatment Upcoming Encounters Date Type Department Care Team (Late st Contact Info) Description 02/02/2025 2:00 PM EDT Office Visit [facility] ADULT DENTAL [address] [place] [address] Danny Coleman DDS [address] [place] [address] 04/19/2025 2:45 PM EDT Office Visit [facility] MEDICINE [address] [place] [address] NameTone MD [address] [place] [address] documented as of this encounter Visit Diagnoses Diagnosis Wheezing documented in this encounter Additional Health Concerns Assessment Noted Time PHQ-9 Depression Total Score: 11 024 2:10 PM EDT documented as of this encounter Care Teams Geotechnical Laboratory Technician Relationship Specialty Start Date End Date NameTone MD [address] [place] [address] PCP - General Family Medicine 08/17/19 documented as of this encounter
--- OUTSIDE RECORDS SUMMARY | 2025-01-26 13:33 | XMS_ITS | Encounter Summary ---
Author Organization [employer] Address 75 [facility] 7t [place] [address] Care Team Providers Care Childcare Aide Name Role Phone Name, Tone SEPULVEDA Primary Care Provider [phone] Reason for Visit * Reason Comments Med Refill Encounter Details Date Type Department Care Team ([facility] st Contact Info) Description 11/25/2023 Refill [facility] MEDICINE [address] [place] [address] Name, MD Tone [address] [place], [place] [phone] Chronic low back pain, unspecified back pain laterality, unspecified whether sciatica present Social History Tobacco Use Types Packs/Day Years Used Date Smoking Tobacco: Some Days Cigarettes Smokeless Tobacco: Never Depression Answer Date Recorded Patient Health Questionnaire-9 Score 0 12/25/2022 Housing Stability Answer Date Recorded What is your housing situation today? I have matthewkhoa up 10/06/[address] you [...] Description 02/02/2025 2:00 PM EDT Office Visit [facility] ADULT DENTAL [address] [place] [address] Danny Coleman DDS [address] [place] [address] 04/19/2025 2:45 PM EDT Office Visit [facility] MEDICINE [address] [place] [address] Tone Cool MD [address] [place] [address] documented as of this encounter Visit Diagnoses Diagnosis Chronic low back pain, unspecified back pain laterality, unspecified whether sciatica present documented in this encounter Additional Health Concerns Assessment Noted Time PHQ-9 Depression Total Score: 0 12/26/19 23 1:52 PM EDT documented as of this encounter Care Teams Childcare Aide Relationship Specialty Start Date End Date Tone Cool MD [address] [place] [address] PCP - General Family Medicine 08/17/19 documented as of this encounter
--- OUTSIDE RECORDS SUMMARY | 2025-01-26 13:33 | XMS_ITS | Encounter Summary ---
Author Organization [employer] Address [address] [facility] [address] 7t [place] [address] Care Team Providers Care Office Support Name Role Phone Name, Tone SEPULVEDA Primary Care Provider [phone] Reason for Visit * Reason Comments Med Refill Encounter Details Date Type Department Care Team ([facility] st Contact Info) Description 12/23/2023 Refill [facility] MED & PEDS [address] [place], [place] [phone] Name, MD Tone [address] [place] [address] Chronic back pain, unspecified back location, unspecified back pain laterality; Anxiety disorder, unspecified; Chronic low back pain, unspecified back pain [...] Description 02/02/2025 2:00 PM EDT Office Visit [facility] ADULT DENTAL [address] [place] [address] Danny Coleman DDS [address] [place] [address] 04/19/2025 2:45 PM EDT Office Visit [facility] MEDICINE [address] [place] [address] Name, MD Tone [address] [place] [address] documented as of this encounter Visit Diagnoses Diagnosis Chronic back pain, unspecified back location, unspecified back pain laterality Anxiety disorder, unspecified Chronic low back pain, unspecified back pain laterality, unspecified whether sciatica present documented in this encounter Additional Health Concerns Assessment Noted Time PHQ-9 Depression Total Score: 0 12/26/19 23 1:52 PM EDT documented as of this encounter Care Teams Office Support Relationship Specialty Start Date End Date Name, MD Tone [address] [place] [address] PCP - General Family Medicine 08/17/19 documented as of this encounter
--- OUTSIDE RECORDS SUMMARY | 2025-01-26 13:33 | XMS_ITS | Encounter Summary ---
Author Organization [employer] Address [address] [facility] 7t [place] [address] Care Team Providers Care Kennel Assistant Name Role Phone Name, Tone SEPULVEDA Primary Care Provider [phone] Reason for Visit * Reason Onset Date Comments Nurse Triage 02/18/2024 Encounter Details Date Type Department Care Team ([facility] st Contact Info) Description 02/18/2024 Telephone [facility] MEDICINE [address] [place] [address] Name, MD Tone [address] [place] [address] Nurse Triage Social History Tobacco Use Types Packs/Day Years [...] encounter Miscellaneous Notes * Telephone Encounter - Sanjuana Modi RN - 02/18/2024 12:57 PM EDT Call returned to Annie Estes to triage below. Confirmed name and . Reports having abdominal pain and SERRANO x 2 weeks. Having headaches today. Per pt used Tylenol for SERRANO with mild relief. Per pt did check BP today. 138/86 prior to meds. Per pt SpO2 sat was 95%. Per pt no diarrhea . Per pt had vomiting yesterday. Denies any green bile, blood or coffee ground emesis. Per pt has GI appt on 03/05/24. Pt advised of disposition, agrees to seek ER. Pt also will attempt to seek sooner GI appt. Reviewed home care advise, ER precautions and reasons to call back. Sent to team for ER status check PRN. Protocol Used: Abdominal Pain - Female (Adult) Protocol-Based Disposition: Go to Office or Video Visit Now Positive Triage Question: * Vomiting and abdomen looks much more swollen than usual * All higher-acuity triage questions were negative Care Advice Discussed: * Reassurance and Education - Stomach Pain * Avoid Aspirin and NSAIDs * Reasons To Call Back - Severe pain lasts over 1 hour - Constant pain lasts over 2 hours - You become worse * Telephone Encounter - Pio Carolina - 02/18/2024 12:42 PM EDT Symptoms: Headache, Abdominal Pain - Female - Not , Vomiting Outcome: Transfer to a nurse or provider NOW! Reason: Sudden worst headache of life now documented in this encounter Plan of Treatment Upcoming Encounters Date Type Department Care Team (Late st Contact Info) Description 02/02/2025 2:00 PM EDT Office Visit [facility] ADULT DENTAL [address] [place] [address] Danny Coleman DDS [address] [place] [address] 04/19/2025 2:45 PM EDT Office Visit [facility] MEDICINE [address] [place] [address] Name, MD Tone [address] [place] [address] documented as of this encounter Visit Diagnoses Not on filedocumented in this encounter Additional Health Concerns Assessment Noted Time PHQ-9 Depression Total Score: 11 024 2:10 PM EDT documented as of this encounter Care Teams Kennel Assistant Relationship Specialty Start Date End Date Name, MD Tone [address] [place] [phone] PCP - General Family Medicine 08/17/19 documented as of this encounter
--- OUTSIDE RECORDS SUMMARY | 2025-01-26 13:33 | XMS_ITS | Encounter Summary ---
Author Organization [facility] Address [address] [place] [address] Care Team Providers Care Compensation Vice President Name Role Phone Silvia Rodriguez MD Primary Care Provider Isi howe NameTone MD Primary Care Provider Unavailabl e Reason for Visit * Reason Onset Date Comments er follow up 08/09/2021 Encounter Details Date Type Department Care Team Description 08/09/2021 Telephone Pulmonology - [place] [address] [facility] [address] [place] [address] Sean Heart MD [address] [place] [phone] er follow up Social History Tobacco Use Types Packs/Day Years [...] encounter Miscellaneous Notes * Telephone Encounter - Dhara López M.A. - 08/09/2021 1:14 PM EST Left message on voice mail asking patient when she got discharged from hospital. BSR please take message. * Telephone Encounter - Fabienne Barriga - 08/09/2021 12:14 PM EST ER follow-up appointment booked NO If ER or UC follow up, can be booked with APC or MD. If hospital admission follow up MUST be booked with a physician Appointment time: Provider visit is scheduled with: Hospital/UC center patient was treated at: [facility] Date of visit: N/A Was this only an ER/UC visit or was the patient admitted to the hospital? ER visit onlyER visit only If patient was admitted what was the date of discharge? N/A Reason/diagnosis for visit or stay: COPD and asthma Was visit or stay related to an injury? NO If yes, what was the date of injury (DOI)? N/A If yes, was the injury due to N/A Tests performed: Lab: YES X-ray: YES EKG: NO Other tests. If yes, what?; N/A documented in this encounter Plan of Treatment Not on file documented as of this encounter Visit Diagnoses Not on filedocumented in this encounter Care Teams Compensation Vice President Relationship Specialty Start Date End Date Silvia Rodriguez MD PCP - General 05/19/17 03/03/22 Tone Cool MD PCP - General Internal Medicine 03/04/22 documented as of this encounter
--- OUTSIDE RECORDS SUMMARY | 2025-01-26 13:33 | XMS_ITS | Encounter Summary ---
Author Organization [facility] Address [address] [place] [address] Care Team Providers Care Endoscopy Nurse Name Role Phone Homero Aranda MD Primary Care Provider [phone] Homer, Pcp Primary Care Provider Chino e Silvia Rodriguez MD Primary Care Provider Tone Barber MD Primary Care Provider Unavailnathan e Encounter Details Date Type Department Care Team Description 12/13/2015 Release of Information Medical Records [address] [place] [id number] Abstract, Provider Social History Tobacco Use Types [...] on filedocumented in this encounter Care Teams Endoscopy Nurse Relationship Specialty Start Date End Date Homero Aranda MD [address] [place] [phone] PCP - General Internal Medicine 07/10/15 03/13/17 Mark Coronel [address] [place] [address] PCP - General Internal Medicine 03/14/17 05/18/17 Silvia Rodriguez MD [address] [place] [address] PCP - General 05/19/17 03/03/22 Tone Cool MD [address] [place] [address] PCP - General Internal Medicine 03/04/22 documented as of this encounter
--- OUTSIDE RECORDS SUMMARY | 2025-01-26 13:33 | XMS_ITS | Encounter Summary ---
Author Organization [facility] Address [address] [place] [address] Care Team Providers Care Thread Spinner Name Role Phone Silvia Rodriguez MD Primary Care Provider Tone Barber MD Primary Care Provider Unavailabl e Reason for Visit * Reason Onset Date Comments Error 06/26/2020 Encounter Details Date Type Department Care Team Description 06/26/2020 Telephone Internal Medicine [address], [address] [place] [address] Rocael Oconnor MD Error Social History Tobacco Use Types Packs/Day Years [...] file Not on file Not on file COVID-19 Exposure Response Date Recorded In the last month, have you been in contact with someone who was confirmed or suspected to have Coronavirus / COVID-19? Unable to assess 06/15/2020 8:29 AM EDT documented as of this encounter Plan of Treatment Not on file documented as of this encounter Visit Diagnoses Not on filedocumented in this encounter Care Teams Thread Spinner Relationship Specialty Start Date End Date Silvia Rodriguez MD PCP - General 05/19/17 03/03/22 Tone Cool MD PCP - General Internal Medicine 03/04/22 documented as of this encounter
--- OUTSIDE RECORDS SUMMARY | 2025-01-26 13:33 | XMS_ITS | Encounter Summary ---
Author Organization [facility] Address [address] [place] [address] Care Team Providers Care Pressing Machine Operator Name Role Phone Silvia Rodriguez MD Primary Care Provider Isi howe NameTone MD Primary Care Provider Unavailnathan e Encounter Details Date Type Department Care Team Description 01/10/2021 Telephone General Surgery [address] [place] [address] [place] [address] Social History Tobacco Use Types Packs/Day Years [...] encounter Miscellaneous Notes * Telephone Encounter - Marissa Juarez - 01/10/2021 11:22 AM EDT Gena from MRI called and stating that this patient is chronically canx this appt that has been sched. For her since last summer. The pt has been resched to 01/19/2021. Would you like for this patient to be resched if she canx the next upcoming appt. Pls. Advise. documented in this encounter Plan of Treatment Not on file documented as of this encounter Visit Diagnoses Not on filedocumented in this encounter Care Teams Pressing Machine Operator Relationship Specialty Start Date End Date Silvia Rodriguez MD PCP - General 05/19/17 03/03/22 Silvina, MD Tone PCP - General Internal Medicine 03/04/22 documented as of this encounter
--- OUTSIDE RECORDS SUMMARY | 2025-01-26 13:33 | XMS_ITS | Encounter Summary ---
Author Organization [facility] Address [address] [place] [address] Care Team Providers Care Recovery Specialist Name Role Phone Silvia Rodriguez MD Primary Care Provider Isi howe NameTone MD Primary Care Provider Unavailabl e Reason for Visit * Reason Onset Date Comments refill request 08/16/2019 Encounter Details Date Type Department Care Team Description 08/16/2019 Refill Pulmonology - [place] [address] [facility] [address] [place] [address] Alfredo Solis MD [address] [facility] [address] [place] [address] refill request Social History Tobacco Use Types Packs/Day [...] encounter Miscellaneous Notes * Telephone Encounter - Alfredo Solis MD - 08/16/2019 4:40 PM EST I do not refills cardiac medication. Nitroglycerin is a cardiac medication. Her PCP need to fill itout. * Telephone Encounter - Trena Carolina - 08/16/2019 11:19 AM EST Patient would like script to be: E-PRESCRIBED/FAXED TO PHARMACY WHEN WAS THE PATIENT'S LAST APPOINTMENT IN ADULT MEDICINE? 04/14/19 WHEN WAS THE LAST TIME THE PATIENT SAW THEIR PCP? Same as above Does patient have an upcoming appointment? Yes 09/27/19 (THE MEDICATION REQUESTED IS ON THE MED LIST ABOVE) All of the medications requested were on the CURRENT MEDS list Did you check the Pharmacy information above?: YES Patient wants: 30 -day supply Is this a mail order prescription request ? NO If the refill is from a FAXED refill request what is the RX # listed on the fax? N/A Patients current insurance carrier is: [place] / Plan: MEDICAID [place] / Product Type: MEDICAID [id number] documented in this encounter Plan of Treatment Not on file documented as of this encounter Visit Diagnoses Not on filedocumented in this encounter Care Teams Recovery Specialist Relationship Specialty Start Date End Date Silvia Rodriguez MD PCP - General 05/19/17 03/03/22 Tone Cool MD PCP - General Internal Medicine 03/04/22 documented as of this encounter
--- OUTSIDE RECORDS SUMMARY | 2025-01-26 13:33 | XMS_ITS | Encounter Summary ---
Author Organization [employer] Address [address] [facility] 7t [place] [address] Care Team Providers Care Senior Economist Name Role Phone Name, Tone SEPULVEDA Primary Care Provider [phone] Reason for Visit * Reason Comments Med Refill Encounter Details Date Type Department Care Team ([facility] st Contact Info) Description 09/01/2024 Refill [facility] MEDICINE [address] [place] [address] Name, MD Tone [address] [place], [place] [phone] Chronic back pain, unspecified back location, unspecified [...] Description 02/02/2025 2:00 PM EDT Office Visit [facility] ADULT DENTAL [address] [place] [address] Danny Coleman DDS [address] [place] [address] 04/19/2025 2:45 PM EDT Office Visit [facility] MEDICINE [address] [place] [address] Name, MD Tone [address] [place] [address] documented as of this encounter Visit Diagnoses Diagnosis Chronic back pain, unspecified back location, unspecified back pain laterality documented in this encounter Additional Health Concerns Assessment Noted Time PHQ-9 Depression Total Score: 11 024 2:10 PM EDT documented as of this encounter Care Teams Senior Economist Relationship Specialty Start Date End Date NameTone MD [address] [place] [address] PCP - General Family Medicine 08/17/19 documented as of this encounter
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
--- OUTSIDE RECORDS SUMMARY | 2025-01-26 13:33 | XMS_ITS | Encounter Summary ---
Author Organization [facility] Address [address] [place] [address] Care Team Providers Care Caseworker Name Role Phone Silvia Rodriguez MD Primary Care Provider Isi howe NameTone MD Primary Care Provider Unavailabl e Reason for Visit * Reason Comments E-prescribe Rx Request Encounter Details Date Type Department Care Team Description 08/11/2020 Refill Pulmonology - [place] 175 [facility] [address] [place] [address] Ezio Benitez PA-C [address] [facility] [address] [place] [address] E-prescribe Rx Request Social History Tobacco Use [...] encounter Miscellaneous Notes * Telephone Encounter - Annie Bryant - 08/11/2020 11:21 AM EST Patient would like script to be: E-PRESCRIBED/FAXED TO PHARMACY WHEN WAS THE PATIENT'S LAST APPOINTMENT WITH THE PRESCRIBING PROVIDER? 06/15/20 Does patient have an upcoming appointment? 10/17/20 (THE MEDICATION REQUESTED IS ON THE MED LIST ABOVE) All of the medications requested were on the CURRENT MEDS list Did you check the Pharmacy information above?: YES Patient wants: 90 -day supply Is this a mail order prescription request ? NO Patients current insurance carrier is: [place] / Plan: MEDICAID [place] / Product Type: MEDICAID [id number] documented in this encounter Plan of Treatment Not on file documented as of this encounter Visit Diagnoses Diagnosis Chronic obstructive pulmonary disease, unspecified COPD type (HCC) Nocturnal hypoxemia Hypoxemia Moderate persistent asthma without complication Unspecified asthma Class 3 severe obesity due to excess calories with serious comorbidity and body mass index (BMI) of 40.0 to 44.9 in adult (HCC) documented in this encounter Care Teams Caseworker Relationship Specialty Start Date End Date Silvia oRdriguez MD PCP - General 05/19/17 03/03/22 Tone Cool MD PCP - General Internal Medicine 03/04/22 documented as of this encounter
--- OUTSIDE RECORDS SUMMARY | 2025-01-26 13:33 | XMS_ITS | Encounter Summary ---
Author Organization [facility] Address [address] [place] [address] Care Team Providers Care Ac/Dc Rewinder Name Role Phone Silvia Rodriguez MD Primary Care Provider Isi howe NameTone MD Primary Care Provider Unavailabl e Reason for Visit * Reason Onset Date Comments Provider Call Back 07/12/2020 Encounter Details Date Type Department Care Team Description 07/12/2020 Telephone Pulmonology - [place] 175 [facility] [address] [place] [address] Alfredo Solis MD 175 [facility] [address] [place] [address] Provider Call Back Social History Tobacco Use Types Packs/Day Years [...] Telephone Encounter - Dhara López M.A. - 07/14/2020 10:07 AM EST Left message on voice mail. * Telephone Encounter - Alfredo Solis MD - 07/13/2020 2:49 PM EST I ordered CXR. Patient needs to go to [place] to have it. Set up appointment for tomorrow in the afternoon with me either audio or office, but she must have the CXR before, this is the only way to see if she really has fluid in her lungs. * Telephone Encounter - Cheri Simental - 07/12/2020 3:45 PM EST Caller requesting call back from provider: Is the caller the patient? YES If caller is not the patient, what is the callers name? N/A Callers relationship to patient? N/A If person calling is not the patient themselves, is there a verbal release in FYI or permanent comments for this person: NO Reason for call back: Patient states they are having issues with their asthma and is requesting a call back from . Patient states they were advised by their primary care provider that thereis fluid in their lungs. Please call to discuss. Caller offered to speak with the nurse for assistance: NO Response: N/A documented in this encounter Plan of Treatment Not on file documented as of this encounter Visit Diagnoses Diagnosis Moderate persistent asthma without complication- Primary Unspecified asthma documented in this encounter Care Teams Ac/Dc Rewinder Relationship Specialty Start Date End Date Fredy-Silvia Powers MD PCP - General 05/19/17 03/03/22 Tone Cool MD PCP - General Internal Medicine 03/04/22 documented as of this encounter
--- OUTSIDE RECORDS SUMMARY | 2025-01-26 13:33 | XMS_ITS | Encounter Summary ---
Author Organization [facility] Address [address] [place] [address] Care Team Providers Care Rubber Roller Grinder Operator Name Role Phone Name, Tone SEPULVEDA Primary Care Provider Unavailabl e Encounter Details Date Type Department Care Team Description 08/21/2023 Orders Only Medical Records [address] [place] [address] Social History Tobacco Use Types Packs/Day Years [...] Name Priority Date/Time Associated Diagnosis Comments OUTSIDE CT Routine 08/08/2023 documented in this encounter Results * OUTSIDE CT (08/08/2023) [facility] RADIOLOGY documented in this encounter Visit Diagnoses Not on filedocumented in this encounter Care Teams Rubber Roller Grinder Operator Relationship Specialty Start Date End Date Name, MD Tone PCP - General Internal Medicine 03/04/22 documented as of this encounter
--- OUTSIDE RECORDS SUMMARY | 2025-01-26 13:33 | XMS_ITS | Encounter Summary ---
Author Organization [employer] Address [address] [facility] 7t [place] [address] Care Team Providers Care Administrative Manager Name Role Phone Name, Tone SEPULVEDA Primary Care Provider [phone] Reason for Visit * Reason Comments Med Refill Encounter Details Date Type Department Care Team ([facility] st Contact Info) Description 08/30/2024 Refill [facility] MEDICINE [address] [place] [address] Name, MD Tone [address] [place], [place] [phone] Chronic back pain, unspecified back location, unspecified [...] Description 02/02/2025 2:00 PM EDT Office Visit [facility] ADULT DENTAL [address] [place] [address] Danny Coleman DDS [address] [place] [address] 04/19/2025 2:45 PM EDT Office Visit [facility] MEDICINE [address] [place] [address] Name, MD Tone [address] [place] [address] documented as of this encounter Visit Diagnoses Diagnosis Chronic back pain, unspecified back location, unspecified back pain laterality documented in this encounter Additional Health Concerns Assessment Noted Time PHQ-9 Depression Total Score: 11 024 2:10 PM EDT documented as of this encounter Care Teams Administrative Manager Relationship Specialty Start Date End Date NameTone MD [address] [place] [address] PCP - General Family Medicine 08/17/19 documented as of this encounter
--- OUTSIDE RECORDS SUMMARY | 2025-01-26 13:33 | XMS_ITS | Encounter Summary ---
Author Organization [employer] Address [address] [facility] 7t [place] [address] Care Team Providers Care Assembler Semiconductor Name Role Phone Name, Tone SEPULVEDA Primary Care Provider [phone] Reason for Visit * Reason Onset Date Comments Med Refill 12/03/2022 Encounter Details Date Type Department Care Team ([facility] st Contact Info) Description 12/03/2022 Telephone [facility] MEDICINE [address] [place], [place] [phone] Name, MD Tone [address] [place] [address] Med Refill Social History Tobacco Use Types Packs/Day Years [...] Telephone Encounter - Viola Gamino LPN - 12/03/2022 3:35 PM EDT Medication was sent to [facility] on 11/28/22. * Telephone Encounter - Sherri Connerles Emiliano - 12/03/2022 3:26 PM EDT Tc from pt requesting med refill on pregabalin (Lyrica) 300 MG capsule Please sent to [facility] - [place], [place] - [address] [place] [address] documented in this encounter Plan of Treatment Upcoming Encounters Date Type Department Care Team (Late st Contact Info) Description 02/02/2025 2:00 PM EDT Office Visit [facility] ADULT DENTAL [address] [place] [address] Danny Coleman DDS [address] [place] [address] 04/19/2025 2:45 PM EDT Office Visit [facility] MEDICINE [address] [place] [address] Name, MD Tone [address] [place] [address] documented as of this encounter Visit Diagnoses Not on filedocumented in this encounter Care Teams Assembler Semiconductor Relationship Specialty Start Date End Date Tone Cool MD [address] [place] [address] PCP - General Family Medicine 08/17/19 documented as of this encounter
--- OUTSIDE RECORDS SUMMARY | 2025-01-26 13:33 | XMS_ITS | Encounter Summary ---
Author Organization [facility] Address [address] [place] [address] Care Team Providers Care Financial Reporting Specialist Name Role Phone Silvia Rodriguez MD Primary Care Provider Tone Barber MD Primary Care Provider Unavailnathan e Encounter Details Date Type Department Care Team Description 08/18/2020 Medical Office Specialist Report Medical Records [address] [place] [address] Briana Rice NP Social History Tobacco Use Types Packs/Day Years [...] on filedocumented in this encounter Care Teams Financial Reporting Specialist Relationship Specialty Start Date End Date Silvia Rodriguez MD PCP - General 05/19/17 03/03/22 Tone Cool MD PCP - General Internal Medicine 03/04/22 documented as of this encounter
--- OUTSIDE RECORDS SUMMARY | 2025-01-26 13:33 | XMS_ITS | Encounter Summary ---
Author Organization [employer] Address [address] [facility] 7t [place] [address] Care Team Providers Care Data Center Operator Name Role Phone Name, Tone SEPULVEDA Primary Care Provider [phone] Reason for Visit * Reason Comments Med Refill Encounter Details Date Type Department Care Team ([facility] st Contact Info) Description 09/13/2024 Refill [facility] [address] [place] [address] Name, MD Tone [address] [place], [place] [phone] Nausea and vomiting in adult Social History Tobacco Use Types Packs/Day Years [...] Description 02/02/2025 2:00 PM EDT Office Visit [facility] ADULT DENTAL [address] [place] [address] Danny Coleman DDS [address] [place] [address] 04/19/2025 2:45 PM EDT Office Visit [facility] [address] [place] [address] NameTone MD [address] [place] [address] documented as of this encounter Visit Diagnoses Diagnosis Nausea and vomiting in adult documented in this encounter Additional Health Concerns Assessment Noted Time PHQ-9 Depression Total Score: 11 024 2:10 PM EDT documented as of this encounter Care Teams Data Center Operator Relationship Specialty Start Date End Date NameTone MD [address] [place] [address] PCP - General Family Medicine 08/17/19 documented as of this encounter
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
--- OUTSIDE RECORDS SUMMARY | 2025-01-26 13:33 | XMS_ITS | Encounter Summary ---
Author Organization [facility] Address [address] [place] [address] Care Team Providers Care Pack Changer Name Role Phone Homero Aranda MD Primary Care Provider [phone] [facility], Pcp Primary Care Provider Unavailabl e Silvia Rodriguez MD Primary Care Provider Isi howe NameTone MD Primary Care Provider Unavailabl e Reason for Referral * EXTERNAL (Routine) - Authorized/Booked Specialty Diagnoses / Procedures Referred By Contwin t Referred To Contact Home Health Care / Home care Procedures REFERRAL TO HOME CARE Homero Aranda MD [address] [place] [address] External Home Care Referral ID Status Reason Start Date Expiration Date V isits Requested Visits Authorized SEE REVIEW 12/27/16 Authorized/ Booked 12/27/2016 12/27/2017 1 1 Reason for Visit * Reason Onset Date Comments other 12/27/2016 [facility] Encounter Details Date Type Department Care Team Description 12/27/2016 Telephone Adult Medicine [address] [address] Homero Aranda MD [address] [place] [address] other ([facility]) Social History Tobacco Use Types Packs/Day Years [...] encounter Miscellaneous Notes * Telephone Encounter - Nery Yee M.A. - 12/27/2016 11:20 AM EDT Spoke with the pt. She is asking to change her home care agency to [facility] care. Referral has been pended for signature if approved. Thank you * Telephone Encounter - Kim Wilson - 12/27/2016 11:11 AM EDT Patient returning phone call * Telephone Encounter - Nery Yee M.A. - 12/27/2016 10:50 AM EDT Left message for patient to call the office. Please transfer call to [phone] if there is no answer please remessage to message pool * Telephone Encounter - Keesha Fermin - 12/27/2016 10:38 AM EDT Caller requesting call back from provider: Is the caller the patient? YES If caller is not the patient, what is the callers name? N/A Callers relationship to patient? N/A If person calling is not the patient themselves, is there a verbal release in FYI or permanent comments for this person: YES Reason for call back: Patient is calling to request a change in home health care agency Caller offered to speak with the nurse for assistance: YES Response: Patient offered to speak with nurse for assistance and patient agreed. Message forwardedto nurse. documented in this encounter Plan of Treatment Not on file documented as of this encounter Visit Diagnoses Not on filedocumented in this encounter Care Teams Pack Changer Relationship Specialty Start Date End Date Homero Aranda MD [address] [place] [address] PCP - General Internal Medicine 07/10/15 03/13/17 [facility], Pcp [address] [place] [address] PCP - General Internal Medicine 03/14/17 05/18/17 Fredy-Silvia Powers MD [address] [place] [address] PCP - General 05/19/17 03/03/22 Name, MD Tone [address] [place] [address] PCP - General Internal Medicine 03/04/22 documented as of this encounter
--- OUTSIDE RECORDS SUMMARY | 2025-01-26 13:33 | XMS_ITS | Encounter Summary ---
Author Organization [facility] Address [address] [place] [address] Care Team Providers Care Tire Groover Name Role Phone Homero Aranda MD Primary Care Provider [phone] [facility], Pcp Primary Care Provider Unavailnathan e Silvia Rodriguez MD Primary Care Provider Tone Barber MD Primary Care Provider Unavailabl e Encounter Details Date Type Department Care Team Description 12/25/2016 Md Pediatric Allergist Report Medical Records [address] [place] [address] Valerio Chester MD Social History Tobacco Use Types Packs/Day Years [...] on filedocumented in this encounter Care Teams Tire Groover Relationship Specialty Start Date End Date Homero Aranda MD [address] [place] [address] PCP - General Internal Medicine 07/10/15 03/13/17 Homer, Mark [address] [place] [address] PCP - General Internal Medicine 03/14/17 05/18/17 Silvia Rodriguez MD [address] [place] [address] PCP - General 05/19/17 03/03/22 Tone Cool MD [address] [place] [address] PCP - General Internal Medicine 03/04/22 documented as of this encounter
--- OUTSIDE RECORDS SUMMARY | 2025-01-26 13:33 | XMS_ITS | Encounter Summary ---
Author Organization [facility] Address [address] [place] [address] Care Team Providers Care Mapping Pilot Name Role Phone Silvia Rodriguez MD Primary Care Provider Isi howe NameTone MD Primary Care Provider Unavailabl e Reason for Visit * Reason Onset Date Comments Hose Tender Feedback 06/28/2020 Encounter Details Date Type Department Care Team Description 06/28/2020 Telephone Pulmonology - [place] [address] [facility] [address] [place] [address] Alfredo Poon MD [address] [facility] [address] [place] [address] Hose Tender Feedback Social History Tobacco Use Types Packs/Day Years [...] encounter Miscellaneous Notes * Telephone Encounter - Keesha Sadler - 06/28/2020 10:00 AM EDT Referral created and linked to 06/15/20 appointment. * Telephone Encounter - Tracy Anaya - 06/28/2020 9:48 AM EDT External PCP patient requesting Specialist Consultation: Telephone encounter to remain open as a reminder until referral, if needed is received and sent to the referrals department to link to visit. When referral is received document: - Referral #: [id number] - Effective date: 03/28/2020 - Number of visits: 6 Route to the referrals dept P [id number] If no referral required CLOSE encounter Patients insurance Pay[place] / Plan: MEDICAID PCC / Product Type: MEDICAID [id number] Date of request: 06/28/2020 Appointment booked with: Dr Alfredo Poon 06/15/2020 Who is calling to request the visit: Other (name and relationship): Specialist office obtained the referral information [facility] #: [phone] PCP address: [address] [place] [address] Priority of request: Routine - schedule for next available appointment; Priority - visit within 4-6weeks; Urgent - visit within a week; Emergency - visit today or tomorrow. Reason for/diagnosis for specialty consult request (cannot be a body part only): Asthma - COPD Telephone # of person calling in the consult: [phone] Is a referral needed for this patients insurance? YES Was caller informed that the referral # and effective dates must be called or faxed to us prior to the visit or visit will be cancelled? Was department fax # given to caller? Office records pertaining to reason for consult requested to be faxed including radiology, lab, pathology reports and office notes: * Telephone Encounter - Keesha Sadler - 06/28/2020 9:38 AM EDT This is not proper smart text EXTERNAL PCP SPECIALTY REQUEST. PRINTED * Telephone Encounter - Tracy Anaya - 06/28/2020 9:35 AM EDT Request for a referral to a [facility] Specialist for a patient with a [facility] PCP. If patient does NOT have a [facility] PCP they must obtain a referral from their PCP before being seen-do not submit request to Referrals department-contact patient. [facility] Plan - Referral already processed - This is the Referral information: Approval #: [id number] Eff: 03/28/2020-03/28/2021 Visits: 6 Specialty patient is being referred to: Pulmonology Name of Specialist patient is seeing: Alfredo Poon NPI # [id number] Reason/diagnosis for visit: Asthma and COPD Date of appoinment: 06/15/2020 If retro, date referral needs to start: 06/15/2020 Silvia Rodriguez Payor[place] / Plan: MEDICAID PCC / Product Type: MEDICAID [id number] * Telephone Encounter - Keesha Sadler - 06/28/2020 9:32 AM EDT Tracy please enter this information with the proper smart text , you are using external provider referral request smart text. (printed) * Telephone Encounter - Tracy Anaya - 06/28/2020 9:16 AM EDT What insurance does the patient have today? [facility] Plan - Referral already processed - Thisis the Referral information: Approval #: [id number] Eff: 03/28/2020-03/28/2021 Visits: 6 Effective 06/08/09: [employer] will not retro referral requests over 90 days. If request is for this please instruct patient to call the 800# on their insurance card to appeal. Do not submit a request. Referrals cannot be processed if the insurance is not accurate. If the insurance listed above in red is NO BILLING INFORMATION FOUND FOR THIS ENCOUTNER The patients correct insurance must be obtained and registered in [facility] or their referral can not be processed. Is this a retro request? YES. If yes for what date of service do you need the retro referral? 06/15/2020 Who is calling to request this referral? Notification from specialist to referrals department If the caller is not the patient, what is their name? N/A Ask the patient WHO referred them to this specialty: Patient spoke to PCP- [facility] andwas told they would order a referral to this specialty FIRST and LAST NAME of SPECIALIST PATIENT is seeing: Alfredo Millsmudno Mendoza NPI #[id number] What specialty is this? pulmonology DIAGNOSIS Patient is being seen for (Not a body part or a procedure): Asthma and COPD Have you seen this SPECIALIST for this PROBLEM/DX before?YES If YES, when: 05/26/2019 w/Isak Benitez Have you checked REVIEW or the APPT DESK to see if this referral has already been done or has visits left? YES Is this visit:Follow Up Address of Specialist: [address] [place] [address], [place] [address], [place], [place] Phone # of Specialist: [phone] Fax #: (if applicable): [phone] Does patient have an appointment scheduled?: YES Date of appointment- (including a retro-request): 06/15/2020 Is this appointment related to: Not MVA, WC or Surgery related documented in this encounter Plan of Treatment Not on file documented as of this encounter Visit Diagnoses Not on filedocumented in this encounter Care Teams Mapping Pilot Relationship Specialty Start Date End Date Fredy-Silvia Powers MD PCP - General 05/19/17 03/03/22 Tone Cool MD PCP - General Internal Medicine 03/04/22 documented as of this encounter
--- OUTSIDE RECORDS SUMMARY | 2025-01-26 13:33 | XMS_ITS | Encounter Summary ---
Author Organization [employer] Address [address] [facility] 7t [place] [address] Care Team Providers Care Manager Of School Name Role Phone Name, Tone SEPULVEDA Primary Care Provider [phone] Reason for Visit * Reason Comments Med Refill Encounter Details Date Type Department Care Team (Late Contact Info) Description 10/03/2022 Refill [facility] [address] [place], [place] [phone] Name, MD Tone [address] [place] [address] Anxiety disorder, unspecified Social History Tobacco Use [...] suspected to have Coronavirus/COVID-19? No / Unsure 09/30/2022 1:07 PM EST documented as of this encounter Plan of Treatment Upcoming Encounters Date Type Department Care Team (Late Contact Info) Description 02/02/2025 2:00 PM EDT Office Visit [facility] ADULT DENTAL [address] [place], [place] [phone] Danny Coleman DDS [address] [place], [place] [phone] 04/19/2025 2:45 PM EDT Office Visit [facility] [address] [place] [address] Name, [place] [address] documented as of this encounter Visit Diagnoses Diagnosis Anxiety disorder, unspecified documented in this encounter Care Teams Manager Of School Relationship Specialty Start Date End Date Name, [place] [address] PCP - General Family Medicine 08/17/19 documented as of this encounter
--- OUTSIDE RECORDS SUMMARY | 2025-01-26 13:33 | XMS_ITS | Encounter Summary ---
Author Organization [facility] Address [address] [place] [address] Care Team Providers Care Ribbon Winder Name Role Phone Silvia Rodriguez MD Primary Care Provider Isi howe NameTone MD Primary Care Provider Unavailabl e Reason for Visit * Reason Onset Date Comments medication problems 11/29/2019 Encounter Details Date Type Department Care Team Description 11/29/2019 Refill Gastroenterology [address] [place] [address] Chetan Guzmán PA-C medication problems Social History Tobacco Use Types Packs/Day Years [...] encounter Miscellaneous Notes * Telephone Encounter - Chetan Guzmán PA-C - 11/29/2019 3:40 PM EDT She doesn't need the omeprazole anyway. It was part of the triple therapy tx for H pylori which hasbeen eradicated. I encouraged her to change her diet and lose weight to control the acid reflux sx. * Telephone Encounter - Ambrosio Haynes - 11/29/2019 2:49 PM EDT Who is calling? A pharmacist: Pharmacy: [facility] Pharmacist Name: [facility] Name of the medication Omeprazole 20 MG Tab EC and phenytoin (DILANTIN) 200 MG ER capsule What is the specific problem or interaction? Pharmacy states there is an interaction causing increase levels of the Phenytoin when taking together. Please advise If the patient is having a problem with taking the med - how long has the problem been going on? N/A documented in this encounter Plan of Treatment Not on file documented as of this encounter Visit Diagnoses Not on filedocumented in this encounter Care Teams Ribbon Winder Relationship Specialty Start Date End Date Fredy-Silvia Powers MD PCP - General 05/19/17 03/03/22 Name, MD Tone PCP - General Internal Medicine 03/04/22 documented as of this encounter
--- OUTSIDE RECORDS SUMMARY | 2025-01-26 13:33 | XMS_ITS | Encounter Summary ---
Author Organization [employer] Address [address] 7[address] [place] [address] Care Team Providers Care Senior Linux Unix Engineer Name Role Phone Name, Tone SEPULVEDA Primary Care Provider [phone] Encounter Details Date Type Department Care Team ([facility] st Contact Info) Description 11/25/2023 Telephone [facility] [address] [place] [address] Name, MD Tone [address] [place] [address] Social History Tobacco Use Types Packs/Day Years [...] Description 02/02/2025 2:00 PM EDT Office Visit [facility] ADULT DENTAL [address] [place] [address] Danny Coleman DDS [address] [place] [address] 04/19/2025 2:45 PM EDT Office Visit [facility] MED[facility] [address] [place] [address] Name, MD Tone [address] [place] [address] documented as of this encounter Visit Diagnoses Not on filedocumented in this encounter Additional Health Concerns Assessment Noted Time PHQ-9 Depression Total Score: 0 12/26/19 23 1:52 PM EDT documented as of this encounter Care Teams Senior Linux Unix Engineer Relationship Specialty Start Date End Date NameTone MD [address] [place] [address] PCP - General Family Medicine 08/17/19 documented as of this encounter
--- OUTSIDE RECORDS SUMMARY | 2025-01-26 13:33 | XMS_ITS | Encounter Summary ---
Author Organization [facility] Address [address] [place] [address] Care Team Providers Care Advertising Traffic Manager Name Role Phone Homero Aranda MD Primary Care Provider [phone] [facility], Pcp Primary Care Provider Unavailabl e Silvia Rodriguez MD Primary Care Provider Isi howe Name, Tone SEPULVEDA Primary Care Provider Unavailabl e Reason for Visit * Reason Comments E-prescribe Rx Request Encounter Details Date Type Department Care Team Description 02/05/2017 Refill Adult Urgent Care - [address] [address] Homero Aranda MD [address] [place] [id number] E-prescribe Rx Request Social History Tobacco Use [...] encounter Miscellaneous Notes * Telephone Encounter - Sarthak Sweet M.A. - 02/05/2017 2:51 PM EDT Last office visit 01.07.17 ZANAFLEX WAS GIVEN ON 01.29.17 ! Lab Results Component Value Date NA 141 08/13/2016 K 4.5 08/13/2016 CO2 26.3 08/13/2016 CL 101 08/13/2016 BUN 11 08/13/2016 CREAT 0.6 08/13/2016 GLU 113 08/13/2016 CA 9.6 08/13/2016 GFR > 60 08/13/2016 * Telephone Encounter - Francheska Alan - 02/05/2017 11:15 AM EDT Patient would like script to be: E-PRESCRIBED/FAXED TO PHARMACY WHEN WAS THE PATIENT'S LAST APPOINTMENT IN ADULT MEDICINE? 01/07/2017 WHEN WAS THE LAST TIME THE PATIENT SAW THEIR PCP? 12/24/2016 Does patient have an upcoming appointment? no (THE MEDICATION REQUESTED IS ON THE MED LIST ABOVE) All of the medications requested were on the CURRENT MEDS list Did you check the Pharmacy information above?: YES Patient wants: 30 -day supply Is this a mail order prescription request ? NO Patients current insurance carrier is: [place] / Plan: MEDICAID PCC / Product Type: MEDICAID [id number] documented in this encounter Plan of Treatment Not on file documented as of this encounter Visit Diagnoses Not on filedocumented in this encounter Care Teams Advertising Traffic Manager Relationship Specialty Start Date End Date Homero Aranda MD [address] [place] [address] PCP - General Internal Medicine 07/10/15 03/13/17 [facility] [address] [place] [address] PCP - General Internal Medicine 03/14/17 05/18/17 Silvia Rodriguez MD [address] [place] [address] PCP - General 05/19/17 03/03/22 Name, MD Tone [address] [place] [address] PCP - General Internal Medicine 03/04/22 documented as of this encounter
--- OUTSIDE RECORDS SUMMARY | 2025-01-26 13:33 | XMS_ITS | Encounter Summary ---
Author Organization [facility] Address [address] [place] [address] Care Team Providers Care Brass Polisher Name Role Phone Silvia Rodriguez MD Primary Care Provider Isi howe NameTone MD Primary Care Provider Unavailabl e Reason for Visit * Reason Onset Date Comments refill request 06/14/2021 Encounter Details Date Type Department Care Team Description 06/14/2021 Refill Pulmonology - [place] [address] [facility] [address] [place] [phone] Sean Heart MD [address] [place] [phone] refill request Social History Tobacco Use Types [...] encounter Miscellaneous Notes * Telephone Encounter - Jennifer Gutierrez - 06/14/2021 9:13 AM EDT Wally 02/14/21 Next 08/20/21 documented in this encounter Plan of Treatment Not on file documented as of this encounter Visit Diagnoses Diagnosis Mild intermittent asthma without complication Unspecified asthma Chronic obstructive pulmonary disease, unspecified COPD type (HCC) Nocturnal hypoxemia Hypoxemia Moderate persistent asthma without complication Unspecified asthma Class 3 severe obesity due to excess calories with serious comorbidity and body mass index (BMI) of 40.0 to 44.9 in adult (HCC) documented in this encounter Care Teams Brass Polisher Relationship Specialty Start Date End Date Fredy-Silvia Powers MD PCP - General 05/19/17 03/03/22 Name, MD Tone PCP - General Internal Medicine 03/04/22 documented as of this encounter
--- OUTSIDE RECORDS SUMMARY | 2025-01-26 13:33 | XMS_ITS | Encounter Summary ---
Author Organization [facility] Address [address] [place] [address] Care Team Providers Care Web Production Artist Name Role Phone Silvia Rodriguez MD Primary Care Provider Isi howe NameTone MD Primary Care Provider Unavailabl e Reason for Visit * Reason Onset Date Comments refill request 08/25/2019 Encounter Details Date Type Department Care Team Description 08/25/2019 Refill Pulmonology - [place] [address] [facility] [address] [place] [address] Alfredo Solis MD [address] [facility] [address] [place] [address] refill request Social History Tobacco [...] encounter Miscellaneous Notes * Telephone Encounter - Fabienne Barriga - 08/25/2019 9:59 AM EST Patient would like script to be: E-PRESCRIBED/FAXED TO PHARMACY WHEN WAS THE PATIENT'S LAST APPOINTMENT IN ADULT MEDICINE? 05/26/2019 WHEN WAS THE LAST TIME THE PATIENT SAW THEIR PCP? N/A Does patient have an upcoming appointment? Yes 09/27/2019 (THE MEDICATION REQUESTED IS ON THE MED [...] N/A Patients current insurance carrier is: [place] / Plan: [place]ICAID [place] / Product Type: MEDICAID [id number] documented in this encounter Plan of Treatment [...] (HCC) documented in this encounter Care Teams Web Production Artist Relationship Specialty Start Date End Date Silvia Rodriguez MD PCP - General 05/19/17 03/03/22 NameTone MD PCP - General Internal Medicine 03/04/22 documented as of this encounter
--- OUTSIDE RECORDS SUMMARY | 2025-01-26 13:33 | XMS_ITS | Encounter Summary ---
Author Organization [facility] Address [address] [place] [address] Care Team Providers Care Cafe Team Member Name Role Phone Name, Tone SEPULVEDA Primary Care Provider Unavailabl e Encounter Details Date Type Department Care Team Description 08/29/2023 Orders Only Medical Records [address] [place] [address] Social History Tobacco Use Types Packs/Day Years [...] Name Priority Date/Time Associated Diagnosis Comments OUTSIDE COLONOSCOPY Routine 06/09/2023 OUTSIDE PATHOLOGY Routine 06/09/2023 documented in this encounter Results * OUTSIDE COLONOSCOPY (06/09/2023) [facility] RADIOLOGY * OUTSIDE PATHOLOGY (06/09/2023) Provider Abstract OUTSIDE LAB documented in this encounter Visit Diagnoses Not on filedocumented in this encounter Care Teams Cafe Team Member Relationship Specialty Start Date End Date Name, MD Tone PCP - General Internal Medicine 03/04/22 documented as of this encounter
--- OUTSIDE RECORDS SUMMARY | 2025-01-26 13:33 | XMS_ITS | Encounter Summary ---
Author Organization [facility] Address [address] [place] [address] Care Team Providers Care Scrap Carrier Name Role Phone Silvia Rodriguez MD Primary Care Provider Tone Barber MD Primary Care Provider Unavailnathan e Encounter Details Date Type Department Care Team Description 05/11/2020 SCAN Medical Records [address] [place] [id number] Abstract, Provider Social History Tobacco Use Types [...] on filedocumented in this encounter Care Teams Scrap Carrier Relationship Specialty Start Date End Date Silvia Rodriguez MD PCP - General 05/19/17 03/03/22 Tone Cool MD PCP - General Internal Medicine 03/04/22 documented as of this encounter
--- OUTSIDE RECORDS SUMMARY | 2025-01-26 13:33 | XMS_ITS | Encounter Summary ---
Author Organization [facility] Address [address] [facility] [address] [place] [address] Care Team Providers Care Tooth Clerk Name Role Phone Name, Tone SEPULVEDA Primary Care Provider [phone] Reason for Visit * Reason Comments Med Refill Encounter Details Date Type Department Care Team ([facility] st Contact Info) Description 09/04/2024 Refill [facility] [address] [place] [address] Name, MD Tone [address] [place], [place] [phone] Nausea and vomiting in adult Social History [...] 2:00 PM EDT Office Visit [facility] [address] [place] [address] Danny Coleman DDS [address] [place] [address] 04/19/2025 2:45 PM EDT Office Visit [facility] [address] [place] [address] NameTone MD [address] [place] [address] documented as of this encounter Visit Diagnoses Diagnosis Nausea and vomiting in adult documented in this encounter Additional Health Concerns Assessment Noted Time PHQ-9 Depression Total Score: 11 024 2:10 PM EDT documented as of this encounter Care Teams Tooth Clerk Relationship Specialty Start Date End Date NameTone MD [address] [place] [address] PCP - General Family Medicine 08/17/19 documented as of this encounter
--- OUTSIDE RECORDS SUMMARY | 2025-01-26 13:33 | XMS_ITS | Encounter Summary ---
Author Organization [facility] Address [address] [place] [address] Care Team Providers Care Windshield Installer Name Role Phone Silvia Rodriguez MD Primary Care Provider Tone Barber MD Primary Care Provider Unavailnathan e Encounter Details Date Type Department Care Team Description 09/11/2020 Second Ride Fare Collector Report Medical Records [address] [place], [place] [phone] [place] [address] Social History Tobacco Use Types Packs/Day Years [...] on filedocumented in this encounter Care Teams Windshield Installer Relationship Specialty Start Date End Date Silvia Rodriguez MD PCP - General 05/19/17 03/03/22 Tone Cool MD PCP - General Internal Medicine 03/04/22 documented as of this encounter
--- OUTSIDE RECORDS SUMMARY | 2025-01-26 13:33 | XMS_ITS | Encounter Summary ---
Author Organization [employer] Address [address] [facility] [address] [place] [address] Care Team Providers Care Financial Center Manager Name Role Phone Name, Tone SEPULVEDA Primary Care Provider [phone] Encounter Details Date Type Department Care Team (Late Contact Info) Description 09/16/2022 Orders Only [facility] CH[facility] MED & PEDS [address] [place] [address] Viola Gamino LPN Social History Tobacco Use Types Packs/Day Years Used Date Smoking Tobacco: Never Assessed Comments Unknown Sex and Gender Information Value [...] suspected to have Coronavirus/COVID-19? No / Unsure 09/12/2022 2:01 PM EST documented as of this encounter Plan of Treatment Upcoming Encounters Date Type Department Care Team (Late st Contact Info) Description 02/02/2025 2:00 PM EDT Office Visit [facility] ADULT DENTAL [address] [place] [address] Danny Coleman DDS [address] [place] [address] 04/19/2025 2:45 PM EDT Office Visit [facility] MEDICINE [address] [place] [address] Name, MD Tone [address] [place] [address] documented as of this encounter Procedures Procedure Name Priority Date/Time Associated Diagnosis Comments HIGH SENSITIVITY TROPONIN I Routine 10/14/2022 12:22 PM EST CBC WITH AUTO DIFFERENTIAL Routine 10/14/2022 12:22 PM EST APTT Routine 10/14/2022 12:22 PM EST PROTHROMBIN TIME-INR Routine 10/14/2022 12:22 PM EST B TYPE NATRIURETIC PEPTIDE (BNP) Routine 10/14/2022 12:22 PM EST COMPREHENSIVE METABOLIC PANEL Routine 10/14/2022 12:22 PM EST HIGH SENSITIVITY TROPONIN I Routine 10/08/2022 5:21 PM EST CBC WITH AUTO DIFFERENTIAL Routine 10/08/2022 5:21 PM EST CREATINE KINASE, TOTAL Routine 5:21 PM EST BASIC METABOLIC PANEL Routine 10/08/2022 5:21 PM EST HIGH SENSITIVITY TROPONIN I Routine 09/24/2022 12:31 PM EST SARS COV2/INFLUENZA A/B AND RSV RNA QL NAAT Routine 09/24/2022 12:31 PM EST CBC WITH AUTO DIFFERENTIAL Routine 09/24/2022 12:31 PM EST APTT Routine 09/24/2022 12:31 PM EST PROTHROMBIN TIME-INR Routine 09/24/2022 12:31 PM EST B TYPE NATRIURETIC PEPTIDE (BNP) Routine 09/24/2022 12:31 PM EST COMPREHENSIVE METABOLIC PANEL Routine 09/24/2022 12:31 PM EST documented in this encounter Results * HIGH SENSITIVITY TROPONIN I (10/14/2022 12:22 PM EST) Pathologist [facility] TROPONIN I HIGH SENSITIVITY <3.5 <3.5 - 17.0 ng/L [facility] Comment:The Felder high sens itivity Troponin-I results should beused in conjunction with other diagnostic information suchas ECG, clinical observations and information, and patientsymptoms to aid in the diagnosis of ME. 10/14/2022 12:2 2 PM EST 10/14/2022 12:32 PM EST [facility] External Provider LAB BLO OD ORDERABLES Final Result Performing Organization Address [facility] Co de Phone Number [facility] [address] [place] [phone] * B Type Natriuretic Peptide (BNP) (10/14/2022 12:22 PM EST) [facility] B Type Natriuretic Peptide 42 <100 pg/mL [facility] Comment:For those patients w ho are being treated with Natrecor(nesiritide, recombinant BNP), BNP testing should beperformed at least two hours post treatment in order toensure that only endogenous levels of BNP are detected. 10/14/2022 12:2 2 PM EST 10/14/2022 12:32 PM EST [facility] External Provider LAB BLO OD ORDERABLES Final Result Performing Organization Address [facility] Co de Phone Number [facility] [address] [place] [phone] * (ABNORMAL) Comprehensive Metabolic Panel (10/14/2022 12:22 PM EST) [facility] Sodium 140 135 - 145 mmol/L [facility] Potassium 4.2 3.3 - 5.1 mmol/L [facility] Chloride 106 96 - 108 mmol/L [facility] Carbon Dioxide 25 22 - 29 mmol/L [facility] Anion Gap 13 12 - 20 [facility] Urea Nitrogen (BUN) 10 9 - 16 mg/dL [facility] Creatinine, Serum 0.67 0.5 - 1.4 mg/dL [facility] Creatinine Clr Calc Pharmacy 106.8 [facility] Comment:Provided height and weight: 167.64 cm,107.955 kg.eGFR (calculated from the MDRD study equation) and eCrCl(calculated from the Cockcroft-Gault equation) are based ondifferent parameters and may not yield comparable results.If eCrCl result is absurd, please check patient'sheight/weight. Estimated Glomerular Filt Rate >60 [facility] Comment:NOTE: For -Am erican individuals, multiply the result by 1.210.Chronic Kidney Disease: Estimated GFR < 60 mL/min/[id number] Kidney Disease: Estimated GFR < 15 mL/min/1.73m2 Glucose 107 60 - 115 mg/dL [facility] Calcium 10.0 8.4 - 10.2 mg/dL [facility] Bilirubin, Total 0.3 0.0 - 1.0 mg/dL [facility] Aspartate Amino Transferase 18 5 - 31 U/L [facility] Alanine Aminotransferase 20 0 - 31 U/L [facility] Total Protein 7.3 6.5 - 8.0 g/dL [facility] Albumin Level 4.6 3.5 - 5.0 g/dL [facility] Alkaline Phosphatase 143(H) 39 - 117 U/L [facility] 10/14/2022 12:2 2 PM EST 10/14/2022 12:32 PM EST us [facility] External Provider LAB BLO OD ORDERABLES Final Result [facility] [address] [place] [address] [phone] * (ABNORMAL) APTT (10/14/2022 12:22 PM EST) Partial Thromboplastin Time 38.4(H) 26.0 - 36.4 SEC [facility] 10/14/2022 12:2 2 PM EST 10/14/2022 12:32 PM EST [facility] External Provider LAB BLO OD ORDERABLES Final Result Performing Organization Address [facility] Co de Phone Number [facility] [address] [place] [phone] * Prothrombin Time-INR (10/14/2022 12:22 PM EST) Pathologist [facility] Prothrombin Time 10.8 10.0 - 13.1 SEC [facility] INTERNATIONAL NORM RATIO 0.9 0.9 - 1.1 [facility] Comment:INTERNATIONAL NORMAL IZED RATIO (INR) REFERENCE RANGES Reference RangeFor patients not on anticoagulant therapy: 0.9 - 1.1INR ranges for oral anticoagulanttherapy:For prevention and treatment of venous thrombosis and pulmonary embolism: 2.0 - 3.0For acute myocardial infarction with aspirin therapy: 2.0 - 3.0For acute myocardial infarction without aspirin therapy: 3.0 - 4.0For patients with mechanical prosthetic heart valves: 2.5 - 3.5 10/14/2022 12:2 2 PM EST 10/14/2022 12:32 PM EST [facility] External Provider LAB BLO OD ORDERABLES Final Result Performing Organization Address [facility] Co de Phone Number [facility] [address] [place] [phone] * (ABNORMAL) CBC auto differential (10/14/2022 12:22 PM EST) White Blood Count 6.8 4.8 - 10.8 X10*3/uL [facility] Red Blood Count 5.37 4.20 - 5.50 X10*6/uL [facility] Hemoglobin 15.1 12.0 - 16.0 g/dl [facility] Hematocrit 47.0 37.0 - 47.0 % [facility] Mean Corpuscular Volume 87.5 80.0 - 98.0 fL [facility] Mean Corpuscular Hemoglobin 28.1 27.0 - 33.0 pg [facility] Mean Corpuscular HGB Conc 32.1 31.0 - 35.0 g/dl [facility] Red Cell Distribution Width 12.8 11.0 - 16.0 % [facility] Platelet Count 310 160 - 400 X10*3/uL [facility] Mean Platelet Volume 10.0 9.4 - 12.3 fL [facility] Neutrophils Percent Auto 74.1(H) 45 - 73 % [facility] Imm Gran Pct Auto 0.1 0.0 - 0.4 % [facility] Lymphocytes Percent Auto 18.9(L) 20 - 40 % [facility] Monocytes Percent Auto 4.1 2 - 11 % [facility] Eosinophils Percent Auto 1.6 0 - 4 % [facility] Basophils Percent Auto 1.2 0 - 2 % [facility] NRBC Pct Auto 0.0 0.0 - 0.2 /100WBC [facility] Neutrophils Absolute Auto 5.0 2.0 - 8.3 x10*3/uL [facility] Imm Gran Abs Auto 0.01 0.00 - 0.03 X10*3/uL [facility] Lymphocytes Absolute Auto 1.3 1.2 - 4.9 X10*3/uL [facility] Monocytes Absolute Auto 0.3 0.1 - 1.2 X10*3/uL [facility] Eosinophils Absolute Auto 0.1 0.0 - 0.4 X10*3/uL [facility] Basophils Absolute Auto 0.1 0.0 - 0.2 X10*3/uL [facility] NRBC Abs Auto 0.000 0.0 - 0.012 X10*3/uL [facility] 10/14/2022 12:2 2 PM EST 10/14/2022 12:32 PM EST [facility] External Provider LAB BLO OD ORDERABLES Final Result Performing Organization Address [facility] Phone Number [facility] [address] [place] [address] [phone] * HIGH SENSITIVITY TROPONIN I (10/08/2022 5:21 PM EST) [facility] TROPONIN I HIGH SENSITIVITY <3.5 <3.5 - 17.0 ng/L [facility] Comment:The Felder high sens itivity Troponin-I results should beused in conjunction with other diagnostic information suchas ECG, clinical observations and information, and patientsymptoms to aid in the diagnosis of ME. 10/08/2022 5:21 PM EST 10/08/2022 5:25 PM EST [facility] External Provider LAB BLO OD ORDERABLES Final Result Performing Organization Address [facility] Number [facility] [address] [place] [address] [phone] * Creatine Kinase, Total (10/08/2022 5:21 PM EST) [facility] Creatine Kinase Total 70 26 - 140 U/L [facility] 10/08/2022 5:21 PM EST 10/08/2022 5:25 PM EST [facility] External Provider LAB BLO OD ORDERABLES Final Result Performing Organization Address [facility] Phone Number [facility] [address] [place] [address] [phone] * (ABNORMAL) Basic Metabolic Panel (10/08/2022 5:21 PM EST) [facility] Sodium 142 135 - 145 mmol/L [facility] Potassium 4.0 3.3 - 5.1 mmol/L [facility] Comment:Slight Hemolysis Chloride 106 96 - 108 mmol/L [facility] Carbon Dioxide 28 22 - 29 mmol/L [facility] Anion Gap 12 12 - 20 [facility] Urea Nitrogen (BUN) 8(L) 9 - 16 mg/dL [facility] Creatinine, Serum 0.65 0.5 - 1.4 mg/dL [facility] Creatinine Clr Calc Pharmacy 110.6 [facility] Comment:Provided height and weight: 167.64 cm,108.862 kg.eGFR (calculated from the MDRD study equation) and eCrCl(calculated from the Cockcroft-Gault equation) are based ondifferent parameters and may not yield comparable results.If eCrCl result is absurd, please check patient'sheight/weight. Estimated Glomerular Filt Rate >60 [facility] Comment:NOTE: For -Am erican individuals, multiply the result by 1.210.Chronic Kidney Disease: Estimated GFR < 60 mL/min/1.90r4Resmlv Kidney Disease: Estimated GFR < 15 mL/min/1.73m2 Glucose 104 60 - 115 mg/dL [facility] Calcium 9.4 8.4 - 10.2 mg/dL [facility] 10/08/2022 5:21 PM EST 10/08/2022 5:25 PM EST us [facility] External Provider LAB BLO OD ORDERABLES Final Result [facility] [address] [place] [address] [phone] * CBC auto differential (10/08/2022 5:21 PM EST) White Blood Count 7.3 4.8 - 10.8 X10*3/uL [facility] Red Blood Count 4.70 4.20 - 5.50 X10*6/uL [facility] Hemoglobin 13.5 12.0 - 16.0 g/dl [facility] Hematocrit 42.4 37.0 - 47.0 % [facility] Mean Corpuscular Volume 90.2 80.0 - 98.0 fL [facility] Mean Corpuscular Hemoglobin 28.7 27.0 - 33.0 pg [facility] Mean Corpuscular HGB Conc 31.8 31.0 - 35.0 g/dl [facility] Red Cell Distribution Width 13.1 11.0 - 16.0 % [facility] Platelet Count 298 160 - 400 X10*3/uL [facility] Mean Platelet Volume 10.2 9.4 - 12.3 fL [facility] Neutrophils Percent Auto 64.4 45 - 73 % [facility] Imm Gran Pct Auto 0.4 0.0 - 0.4 % [facility] Lymphocytes Percent Auto 24.7 20 - 40 % [facility] Monocytes Percent Auto 7.4 2 - 11 % [facility] Eosinophils Percent Auto 2.1 0 - 4 % [facility] Basophils Percent Auto 1.0 0 - 2 % [facility] NRBC Pct Auto 0.0 0.0 - 0.2 /100WBC [facility] Neutrophils Absolute Auto 4.7 2.0 - 8.3 x10*3/uL [facility] Imm Gran Abs Auto 0.03 0.00 - 0.03 X10*3/uL [facility] Lymphocytes Absolute Auto 1.8 1.2 - 4.9 X10*3/uL [facility] Monocytes Absolute Auto 0.5 0.1 - 1.2 X10*3/uL [facility] Eosinophils Absolute Auto 0.2 0.0 - 0.4 X10*3/uL [facility] Basophils Absolute Auto 0.1 0.0 - 0.2 X10*3/uL [facility] NRBC Abs Auto 0.000 0.0 - 0.012 X10*3/uL [facility] 10/08/2022 5:21 PM EST 10/08/2022 5:25 PM EST us [facility] External Provider LAB BLO OD ORDERABLES Final Result [facility] [address] [place] [phone] * SARS-CoV-2 RNA, Influenza A/B, and RSV RNA, Ql NAAT (09/24/2022 12:31 PM EST) Pathologist [facility] Influenza A PCR NEGATIVE Negative [facility] Influenza B PCR NEGATIVE Negative [facility] Resp Syncy Virus RNA Qual PCR NEGATIVE Negative [facility] SARS COV2 PCR NEGATIVE Negative [facility] SARS/Flu/RSV Note See Note [facility] Comment:All test results mus t be correlated with clinical findings.Negative results do not preclude SARS-CoV2, influenza Avirus, influenza B virus and/or RSV infectionand should not be used as the sole basis for treatment orother patient management decisions. Negative results must becombined with clinical observations, patient history, andepidemiological information.This test has not been evaluated for monitoring treatment ofinfection.This test has been authorized by the FDA under an EmergencyUse Authorization (EUA) for use by authorized laboratories.Testing performed on the [employer] GeneXpert utilizingreal-time RT-PCR.All SARS CoV2 and positive influenza A/B results arereported to [facility]. 09/24/2022 12:3 1 PM EST 09/24/2022 12:39 PM EST [facility] Exter nal Provider LAB MICROBIOLOGY - GENERAL ORDERABLES Final Result [facility] [address] [place] [address] [phone] * HIGH SENSITIVITY TROPONIN I (09/24/2022 12:31 PM EST) Pathologist [facility] TROPONIN I HIGH SENSITIVITY <3.5 <3.5 - 17.0 ng/L [facility] Comment:The Felder high sens itivity Troponin-I results should beused in conjunction with other diagnostic information suchas ECG, clinical observations and information, and patientsymptoms to aid in the diagnosis of ME. 09/24/2022 12:3 1 PM EST 09/24/2022 12:39 PM EST [facility] External Provider LAB BLO OD ORDERABLES Final Result Performing Organization Address [facility] de Phone Number [facility] [address] [place] [address] [phone] * B Type Natriuretic Peptide (BNP) (09/24/2022 12:31 PM EST) [facility] B Type Natriuretic Peptide 20 <100 pg/mL [facility] Comment:For those patients w ho are being treated with Natrecor(nesiritide, recombinant BNP), BNP testing should beperformed at least two hours post treatment in order toensure that only endogenous levels of BNP are detected. 09/24/2022 12:3 1 PM EST 09/24/2022 12:39 PM EST [facility] External Provider LAB BLO OD ORDERABLES Final Result Performing Organization Address [facility] de Phone Number [facility] [address] [place] [address] [phone] * (ABNORMAL) Comprehensive Metabolic Panel (09/24/2022 12:31 PM EST) [facility] Sodium 141 135 - 145 mmol/L [facility] Potassium 4.2 3.3 - 5.1 mmol/L [facility] Chloride 109(H) 96 - 108 mmol/L [facility] Carbon Dioxide 23 22 - 29 mmol/L [facility] Anion Gap 13 12 - 20 [facility] Urea Nitrogen (BUN) 11 9 - 16 mg/dL [facility] Creatinine, Serum 0.67 0.5 - 1.4 mg/dL [facility] Creatinine Clr Calc Pharmacy 106.8 [facility] Comment:Provided height and weight: 167.64 cm,107.955 kg.eGFR (calculated from the MDRD study equation) and eCrCl(calculated from the Cockcroft-Gault equation) are based ondifferent parameters and may not yield comparable results.If eCrCl result is absurd, please check patient'sheight/weight. Estimated Glomerular Filt Rate >60 [facility] Comment:NOTE: For -Am erican individuals, multiply the result by 1.210.Chronic Kidney Disease: Estimated GFR < 60 mL/min/1.39h3Wwoayq Kidney Disease: Estimated GFR < 15 mL/min/1.73m2 Glucose 98 60 - 115 mg/dL [facility] Calcium 9.9 8.4 - 10.2 mg/dL [facility] Bilirubin, Total 0.2 0.0 - 1.0 mg/dL [facility] Aspartate Amino Transferase 18 5 - 31 U/L [facility] Alanine Aminotransferase 24 0 - 31 U/L [facility] Total Protein 7.3 6.5 - 8.0 g/dL [facility] Albumin Level 4.4 3.5 - 5.0 g/dL [facility] Alkaline Phosphatase 138(H) 39 - 117 U/L [facility] 09/24/2022 12:3 1 PM EST 09/24/2022 12:39 PM EST [facility] External Provider LAB BLO OD ORDERABLES Final Result Performing Organization Address City/[facility]/ZIP Co de Phone Number [facility] [address] [place] [address] [phone] * (ABNORMAL) APTT (09/24/2022 12:31 PM EST) Partial Thromboplastin Time 38.7(H) 26.0 - 36.4 SEC [facility] 09/24/2022 12:3 1 PM EST 09/24/2022 12:39 PM EST [facility] External Provider LAB BLO OD ORDERABLES Final Result Performing Organization Address City/[facility]/ZIP Co de Phone Number [facility] [address] [place] [address] [phone] * Prothrombin Time-INR (09/24/2022 12:31 PM EST) Pathologist [facility] Prothrombin Time 10.3 10.0 - 13.1 SEC [facility] INTERNATIONAL NORM RATIO 0.9 0.9 - 1.1 [facility] Comment:INTERNATIONAL NORMAL IZED RATIO (INR) REFERENCE RANGES Reference RangeFor patients not on anticoagulant therapy: 0.9 - 1.1INR ranges for oral anticoagulanttherapy:For prevention and treatment of venous thrombosis and pulmonary embolism: 2.0 - 3.0For acute myocardial infarction with aspirin therapy: 2.0 - 3.0For acute myocardial infarction without aspirin therapy: 3.0 - 4.0For patients with mechanical prosthetic heart valves: 2.5 - 3.5 09/24/2022 12:3 1 PM EST 09/24/2022 12:39 PM EST [facility] External Provider LAB BLO OD ORDERABLES Final Result Performing Organization Address City/State/[facility] Co de Phone Number [facility] [address] [place] [address] [phone] * CBC auto differential (09/24/2022 12:31 PM EST) [facility] White Blood Count 7.0 4.8 - 10.8 X10*3/uL [facility] Red Blood Count 5.07 4.20 - 5.50 X10*6/uL [facility] Hemoglobin 14.6 12.0 - 16.0 g/dl [facility] Hematocrit 44.9 37.0 - 47.0 % [facility] Mean Corpuscular Volume 88.6 80.0 - 98.0 fL [facility] Mean Corpuscular Hemoglobin 28.8 27.0 - 33.0 pg [facility] Mean Corpuscular HGB Conc 32.5 31.0 - 35.0 g/dl [facility] Red Cell Distribution Width 13.2 11.0 - 16.0 % [facility] Platelet Count 299 160 - 400 X10*3/uL [facility] Mean Platelet Volume 10.4 9.4 - 12.3 fL [facility] Neutrophils Percent Auto 65.1 45 - 73 % [facility] Imm Gran Pct Auto 0.3 0.0 - 0.4 % [facility] Lymphocytes Percent Auto 25.3 20 - 40 % [facility] Monocytes Percent Auto 6.5 2 - 11 % [facility] Eosinophils Percent Auto 1.7 0 - 4 % [facility] Basophils Percent Auto 1.1 0 - 2 % [facility] NRBC Pct Auto 0.0 0.0 - 0.2 /100WBC [facility] Neutrophils Absolute Auto 4.5 2.0 - 8.3 x10*3/uL [facility] Imm Gran Abs Auto 0.02 0.00 - 0.03 X10*3/uL [facility] Lymphocytes Absolute Auto 1.8 1.2 - 4.9 X10*3/uL [facility] Monocytes Absolute Auto 0.5 0.1 - 1.2 X10*3/uL [facility] Eosinophils Absolute Auto 0.1 0.0 - 0.4 X10*3/uL [facility] Basophils Absolute Auto 0.1 0.0 - 0.2 X10*3/uL [facility] NRBC Abs Auto 0.000 0.0 - 0.012 X10*3/uL [facility] 09/24/2022 12:3 1 PM EST 09/24/2022 12:39 PM EST us [facility] External Provider LAB BLO OD ORDERABLES Final Result Performing Organization Address City/State/[facility] Co de Phone Number [facility] [address] [place] [phone] documented in this encounter Visit Diagnoses Not on filedocumented in this encounter Care Teams Financial Center Manager Relationship Specialty Start Date End Date Name, MD Tone [address] [place] [phone] PCP - General Family Medicine 08/17/19 documented as of this encounter
--- OUTSIDE RECORDS SUMMARY | 2025-01-26 13:33 | XMS_ITS | Encounter Summary ---
Author Organization [facility] Address [address] [place] [address] Care Team Providers Care Wire Preparation Worker Name Role Phone Silvia Rodriguez MD Primary Care Provider Tone Barber MD Primary Care Provider Unavailnathan e Encounter Details Date Type Department Care Team Description 09/11/2021 Multifocal Lens Inspector Report Medical Records [address] [place], [place] [id number] [place] [address] Social History Tobacco Use Types Packs/Day Years [...] on filedocumented in this encounter Care Teams Wire Preparation Worker Relationship Specialty Start Date End Date Silvia Rodriguez MD PCP - General 05/19/17 03/03/22 Tone Cool MD PCP - General Internal Medicine 03/04/22 documented as of this encounter
--- OUTSIDE RECORDS SUMMARY | 2025-01-26 13:34 | XMS_ITS | Encounter Summary ---
Author Organization [employer] Address [address] [facility] 7t [place] [address] Care Team Providers Care Court Recorder Name Role Phone Name, Tone SEPULVEDA Primary Care Provider [phone] Reason for Visit * Reason Onset Date Comments Referral 08/14/2023 Encounter Details Date Type Department Care Team ([facility] st Contact Info) Description 08/14/2023 Telephone [facility] MEDICINE [address] [place] [address] Name, MD Tone [address] [place] [address] Referral Social History Tobacco Use Types Packs/Day Years Used Date Smoking Tobacco: Some Days Cigarettes Smokeless Tobacco: Never Depression Answer Date Recorded Patient Health Questionnaire-9 Score 0 12/25/2022 Housing Stability Answer Date Recorded What is your housing situation today? I have matthew up 06/24/[address] you li ve. Do you have problems with any of the following? None of the above 06/24/2023 Food Insecurity Answer Date Recorded Within the past 12 months, y ou worried that your food would run out before you got money to buy more: Never True 06/24/2023 Within the past 12 months,th e food you bought just didn't last and you didn't have enough money to get more: Never True Transportation Answer Date Recorded In the past 12 months, has l ack of transportation kept you from medical appts, meetings, work or from getting things needed for daily living? No 06/24/2023 Utilities Answer Date Recorded In the past 12 months, has t he electric, gas, oil or water company threatened to shut off services in your home? No 06/24/2023 Depression Answer Date Recorded Patient Health Questionnaire-2 [...] Telephone Encounter - Fernando Keller RN - 08/14/2023 3:52 PM EST T/C to james for below message, No answer. Lvm to call back on [phone]. Please review and advise if needed. * Telephone Encounter - Toni Galdamez - 08/14/2023 3:22 PM EST Tc from James at [facility] requesting referrals for Nursing, Occupational Therapy and Medication Management any questions please call James at documented in this encounter Plan of Treatment Upcoming Encounters Date Type Department Care Team (Late st Contact Info) Description 02/02/2025 2:00 PM EDT Office Visit [facility] ADULT DENTAL [address] [place] [address] Danny Coleman DDS [address] [place] [address] 04/19/2025 2:45 PM EDT Office Visit [facility] MEDICINE [address] [place] [address] Name, MD Tone [address] [place] [address] documented as of this encounter Visit Diagnoses Not on filedocumented in this encounter Additional Health Concerns Assessment Noted Time PHQ-9 Depression Total Score: 0 12/26/19 23 1:52 PM EDT documented as of this encounter Care Teams Court Recorder Relationship Specialty Start Date End Date Name, MD Tone [address] [place] [address] PCP - General Family Medicine 08/17/19 documented as of this encounter
--- OUTSIDE RECORDS SUMMARY | 2025-01-26 13:34 | XMS_ITS | Encounter Summary ---
Author Organization [facility] Address [address] [place] [address] Care Team Providers Care Terminal Superintendent Name Role Phone Name, Tone SEPULVEDA Primary Care Provider Unavailabl e Reason for Visit * Reason Onset Date Comments hospital follow up 08/14/2023 Encounter Details Date Type Department Care Team Description 08/14/2023 Telephone Gastroenterology - [place] 175 [facility] [address] [place] [phone] Bennie Boyce PA-C [address] [address] hospital follow up Social History Tobacco Use Types [...] encounter Miscellaneous Notes * Telephone Encounter - Nathalie Miller - 08/18/2023 2:04 PM EST Booked appointment for tomorrow with Bennie. * Telephone Encounter - Bennie Boyce PA-C - 08/15/2023 5:37 PM EST If patient was having issues with rectal bleeding, and if she is still having the bleeding, then she should be seen sooner than later for discussion and possible colonoscopy. * Telephone Encounter - Nathalie Miller - 08/15/2023 1:22 PM EST Results are in your bin for review, thanks. * Telephone Encounter - Dyan Lopez - 08/14/2023 1:33 PM EST Patient went into the hospital for [facility] and was released on fri and then on was readmitted or bleeding from rectum and was discharged on fri. Patient was admitted at [facility]. Please reach out to patient documented in this encounter Plan of Treatment Not on file documented as of this encounter Visit Diagnoses Not on filedocumented in this encounter Care Teams Terminal Superintendent Relationship Specialty Start Date End Date Name, MD Tone PCP - General Internal Medicine 03/04/22 documented as of this encounter
--- OUTSIDE RECORDS SUMMARY | 2025-01-26 13:34 | XMS_ITS | Encounter Summary ---
Author Organization [employer] Address [address] [facility] 7t [place] [address] Care Team Providers Care Trimming Cutter Name Role Phone Name, Tone SEPULVEDA Primary Care Provider [phone] Reason for Visit * Reason Onset Date Comments ER Follow-up 08/11/2023 Encounter Details Date Type Department Care Team ([facility] st Contact Info) Description 08/11/2023 Telephone [facility] MEDICINE [address] [place] [address] Name, MD Tone [address] [place] [address] ER Follow-up Social History Tobacco Use Types Packs/Day Years [...] the past 12 months, has t he [employer], [employer], oil or water [employer] threatened to shut off services in your [...] encounter Miscellaneous Notes * Telephone Encounter - Ana Paula Weber - 08/11/2023 12:15 PM EST Tc from pt calling to report ED visit on 08/04/2023 [facility]. Seen for two times fall. Patient advised will forward to team nurse for follow up. documented in this encounter Plan of Treatment Upcoming Encounters Date Type Department Care Team (Late st Contact Info) Description 02/02/2025 2:00 PM EDT Office Visit [facility] ADULT DENTAL [address] [place] [address] Danny Coleman DDS [address] [place] [address] 04/19/2025 2:45 PM EDT Office Visit [facility] MEDICINE [address] [place] [address] NameTone MD [address] [place] [address] documented as of this encounter Visit Diagnoses Not on filedocumented in this encounter Additional Health Concerns Assessment Noted Time PHQ-9 Depression Total Score: 0 12/26/19 23 1:52 PM EDT documented as of this encounter Care Teams Trimming Cutter Relationship Specialty Start Date End Date Tone Cool MD [address] [place] [address] PCP - General Family Medicine 08/17/19 documented as of this encounter
--- OUTSIDE RECORDS SUMMARY | 2025-01-26 13:34 | XMS_ITS | Encounter Summary ---
Author Organization [facility] Address [address] [place] [address] Care Team Providers Care Dietetic Tech Name Role Phone Silvia Rodriguez MD Primary Care Provider Tone Barber MD Primary Care Provider Unavailnathan e Encounter Details Date Type Department Care Team Description 09/22/2017 Nutrition Partner Report Medical Records [address] [place] [address] Sue Haynes NP Social History Tobacco Use Types Packs/Day Years Used Date Smoking Tobacco: Light Smoker Cigarettes 0.1 10 Last attempted t o quit: 09/08/2013 Smokeless Tobacco: Never Comments:few times a day Alcohol Use Standard Drinks/Week Comments No 0 [...] on filedocumented in this encounter Care Teams Dietetic Tech Relationship Specialty Start Date End Date Silvia Rodriguez MD PCP - General 05/19/17 03/03/22 Tone Cool MD PCP - General Internal Medicine 03/04/22 documented as of this encounter
--- OUTSIDE RECORDS SUMMARY | 2025-01-26 13:34 | XMS_ITS | Encounter Summary ---
Author Organization [employer] Address [address] [place] [address] 7 [place] [address] Care Team Providers Care Dining Room Helper Name Role Phone Name, Tone SEPULVEDA Primary Care Provider [phone] Reason for Visit * Reason Comments Med Refill Encounter Details Date Type Department Care Team ([facility] st Contact Info) Description 04/18/2023 Refill [facility] MEDICINE [address] [place], [place] [phone] Name, MD Tone [address] [place] [address] Anxiety disorder, unspecified; Chronic low back pain, [...] encounter Miscellaneous Notes * Telephone Encounter - Hyacinth Gandhi RN - 04/18/2023 10:41 AM EDT Duplicate. New refill request sent by [facility] nurse. * Telephone Encounter - Deisy King 04/18/2023 10:23 AM EDT Tc from patient requesting a med refill for medication oxycodone 15 mg. Please send to [facility] pharmacy. PCP Dr. Cool documented in this encounter Plan of Treatment Upcoming Encounters Date Type Department Care Team (Late st Contact Info) Description 02/02/2025 2:00 PM EDT Office Visit [facility] ADULT DENTAL [address] [place] [address] Danny Coleman DDS [address] [place] [address] 04/19/2025 2:45 PM EDT Office Visit [facility] MEDICINE [address] [place] [address] Name, MD Tone [address] [place] [address] documented as of this encounter Visit Diagnoses Diagnosis Anxiety disorder, unspecified Chronic low back pain, unspecified back pain laterality, unspecified whether sciatica present documented in this encounter Additional Health Concerns Assessment Noted Time PHQ-9 Depression Total Score: 0 12/26/19 23 1:52 PM EDT documented as of this encounter Care Teams Dining Room Helper Relationship Specialty Start Date End Date Tone Cool MD [address] [place] [address] PCP - General Family Medicine 08/17/19 documented as of this encounter
--- OUTSIDE RECORDS SUMMARY | 2025-01-26 13:34 | XMS_ITS | Encounter Summary ---
Author Organization [facility] Address [address] [place] [address] Care Team Providers Care Audio Narrator Name Role Phone Name, Tone SEPULVEDA Primary Care Provider Unavailabl e Reason for Visit * Reason Onset Date Comments Note, Other 11/25/2023 Encounter Details Date Type Department Care Team Description 11/25/2023 Telephone Pulmonology - [place] 175 [facility] [address] [place] [address] Sean Heart MD [address] [place] [phone] Note, Other Social History Tobacco Use Types Packs/Day Years [...] encounter Miscellaneous Notes * Telephone Encounter - Harshad Galdamez - 11/25/2023 2:57 PM EDT Patient called requesting a call back and or documentation asto when was the patient diagnose with COPD . Patient can be reach at [phone] please advice documented in this encounter Plan of Treatment Not on file documented as of this encounter Visit Diagnoses Not on filedocumented in this encounter Care Teams Audio Narrator Relationship Specialty Start Date End Date Name, MD Tone PCP - General Internal Medicine 03/04/22 documented as of this encounter
--- OUTSIDE RECORDS SUMMARY | 2025-01-26 13:34 | XMS_ITS | Encounter Summary ---
Author Organization [facility] Address [address] [place] [address] Care Team Providers Care Sound Tester Name Role Phone Name, Tone SEPULVEDA Primary Care Provider Unavailabl e Reason for Visit * Reason Onset Date Comments DME Request 06/23/2023 Encounter Details Date Type Department Care Team Description 06/23/2023 Telephone Pulmonology - [place] 175 [facility] [address] [place] [address] Sean Heart MD [address] [place] [phone] DME Request Social History Tobacco Use Types Packs/Day [...] Notes * Telephone Encounter - Iris Cohen CMA - 06/24/2023 1:34 PM EDT Letter of necessity Cant be filled out until patient has an office visit. Last office visit been a little more than a year. I tried calling patient line busy * Telephone Encounter - Keesha Sampson - 06/23/2023 4:35 PM EDT Called patient to schedule JUDY REcieved DME fax from nicole LEONARD 04/12/2022 documented in this encounter Plan of Treatment Not on file documented as of this encounter Visit Diagnoses Not on filedocumented in this encounter Care Teams Sound Tester Relationship Specialty Start Date End Date Name, MD Tone PCP - General Internal Medicine 03/04/22 documented as of this encounter
--- OUTSIDE RECORDS SUMMARY | 2025-01-26 13:34 | XMS_ITS | Encounter Summary ---
Author Organization [facility] Address [address] [place] [address] Care Team Providers Care Senior Catering Sales Manager Name Role Phone Name, Tone SEPULVEDA Primary Care Provider Unavailabl e Encounter Details Date Type Department Care Team Description 11/24/2023 Service And Repair Supervisor Report Medical Records [address] [place] [address] [facility] [address] [place] [address] Social History Tobacco Use Types Packs/Day Years [...] on filedocumented in this encounter Care Teams Senior Catering Sales Manager Relationship Specialty Start Date End Date Name, MD Tone PCP - General Internal Medicine 03/04/22 documented as of this encounter
--- OUTSIDE RECORDS SUMMARY | 2025-01-26 13:34 | XMS_ITS | Encounter Summary ---
Author Organization [employer] Address [address] [facility] 7t [place] [address] Care Team Providers Care Special Education Supervisor Name Role Phone Name, Tone SEPULVEDA Primary Care Provider [phone] Reason for Visit * Reason Onset Date Comments Med Refill 01/05/2025 Encounter Details Date Type Department Care Team ([facility] st Contact Info) Description 01/05/2025 Telephone [facility] MEDICINE [address] [place], [place] [phone] Name, MD Tone [address] [place] [address] Med Refill Social History Tobacco Use Types Packs/Day Years Used Date Smoking Tobacco: Some Days Cigarettes Smokeless Tobacco: Never Alcohol Use Standard Drinks/Week Comments Never 0 (1 standard drink = 0.6 oz pur e alcohol) Alcohol Answer Date Recorded Q1: How often do you have a drink containing alc ohol? 1 12/31/2024 Q2: How many drinks containi ng alcohol do you have on a typical day when you are drinking? 0 12/31/2024 Q3: How often do you have six or more drinks on one occasion? 1 12/31/2024 Depression Answer Date Recorded Patient Health Questionnaire-9 Score 14 12/31/2024 Patient Health Questionnaire-9 Score 14 12/31/2024 Last PHQ-9: Questionnaire Data Not on file 0 12/31/2024 Housing Stability Answer Date Recorded What is your housing situation today? I have matthew up 12/31/[address] you li ve. Do you have problems with any of the following? None of the above 12/31/2024 Food Insecurity Answer Date Recorded Within the past 12 months, y ou worried that your food would run out before you got money to buy more: Never True 12/31/2024 Within the past 12 months,th e food you bought just didn't last and you didn't have enough money to get more: Never True Transportation Answer Date Recorded In the past 12 months, has l ack of transportation kept you from medical appts, meetings, work or from getting things needed for daily living? No 12/31/2024 Intimate Partner Violence Answer Date R ecorded Within the last year, have y ou been afraid of your partner or ex-partner? 2 12/31/2024 Within the last year, have y ou been humiliated or emotionally abused in other ways by your partner or ex-partner? 2 Within the last year, have y ou been kicked, hit, slapped, or otherwise physically hurt by your partner or ex-partner? 2 12/31/2024 Within the last year, have y ou been raped or forced to have any kind of sexual activity by your partner or ex-partner? 2 12/31/2024 Utilities Answer Date Recorded In the past 12 months, has t he electric, gas, oil or water company threatened to shut off services in your home? No 12/31/2024 Depression Answer Date Recorded Patient Health Questionnaire-2 Score 4 12/31/2024 Internet Access Answer Date Recorded Internet Access Q1 Yes 12/31/2024 Internet Access Q2 Not on file 12/31/2024 Comments Unknown Sex and Gender Information Value Date Recorded Sex Assigned at Female 07/08/2022 10:31 AM EDT Legal Sex Female 10:31 AM EDT Gender Identity Female 07/08/2022 10:31 AM EDT Sexual Orientation Choose not to disclose 2021 10:31 AM EDT documented as of this encounter Miscellaneous Notes * Telephone Encounter - Ray Dominique - 01/10/2025 4:28 PM EDT TC from patient reports being out of pregabalin (Lyrica) 300 MG capsule medication for about 1-2 weeks . Pt needing refill . * Telephone Encounter - Viola Gamino LPN - 01/05/2025 11:42 AM EDT GASKET MAKER checked on 01/05/25 Lyrica was last sold on 12/22/24 #56 (28 day supply) to soon for refill. * Telephone Encounter - Ray Dominique - 01/05/2025 11:36 AM EDT TC from pt requesting medication refill. Medications needing refill : pregabalin (Lyrica) 300 MG capsule To be sent to: [facility] documented in this encounter Plan of Treatment Upcoming Encounters Date Type Department Care Team (Late st Contact Info) Description 02/02/2025 2:00 PM EDT Office Visit [facility] ADULT DENTAL [address] [place] [address] Danny Coleman DDS [address] [place] [address] 04/19/2025 2:45 PM EDT Office Visit [facility] MEDICINE [address] [place] [address] Name, MD Tone [address] [place] [address] documented as of this encounter Visit Diagnoses Not on filedocumented in this encounter Additional Health Concerns Assessment Noted Time PHQ-9 Depression Total Score: 14 025 1:40 PM EDT documented as of this encounter Care Teams Special Education Supervisor Relationship Specialty Start Date End Date Name, MD Tone [address] [place] [address] PCP - General Family Medicine 08/17/19 documented as of this encounter
--- OUTSIDE RECORDS SUMMARY | 2025-01-26 13:34 | XMS_ITS | Encounter Summary ---
Author Organization [facility] Address [address] [place] [address] Care Team Providers Care Traffic Control Technician Name Role Phone Homero Aranda MD Primary Care Provider [phone] Homer, Pcp Primary Care Provider Unavailnathan e Silvia Rodriguez MD Primary Care Provider Tone Barber MD Primary Care Provider Unavailnathan e Encounter Details Date Type Department Care Team Description 12/16/2015 Transfer Records Medical Records [address] [place] [address] Social History Tobacco Use Types Packs/Day Years [...] on filedocumented in this encounter Care Teams Traffic Control Technician Relationship Specialty Start Date End Date Homero Aranda MD [address] [place] [address] PCP - General Internal Medicine 07/10/15 03/13/17 Homer, Pcp [address] [place] [address] PCP - General Internal Medicine 03/14/17 05/18/17 Silvia Rodriguez MD [address] [place] [address] PCP - General 05/19/17 03/03/22 Tone Cool MD [address] [place] [address] PCP - General Internal Medicine 03/04/22 documented as of this encounter
--- OUTSIDE RECORDS SUMMARY | 2025-01-26 13:34 | XMS_ITS | Encounter Summary ---
Author Organization [employer] Address [address] [facility] [address] 7t [place] [address] Care Team Providers Care Knockdown Worker Name Role Phone Name, Tone SEPULVEDA Primary Care Provider [phone] Encounter Details Date Type Department Care Team ([facility] st Contact Info) Description 08/11/2024 Telephone [facility] MEDICINE [address] [place] [address] Name, MD Tone [address] [place] [address] Social History Tobacco Use Types Packs/Day Years [...] Description 02/02/2025 2:00 PM EDT Office Visit [facility] ADULT DENTAL [address] [place] [address] Danny Coleman DDS [address] [place] [address] 04/19/2025 2:45 PM EDT Office Visit [facility] MEDICINE [address] [place] [address] Name, MD Tone [address] [place] [address] documented as of this encounter Visit Diagnoses Not on filedocumented in this encounter Additional Health Concerns Assessment Noted Time PHQ-9 Depression Total Score: 11 024 2:10 PM EDT documented as of this encounter Care Teams Knockdown Worker Relationship Specialty Start Date End Date Name, MD Tone [address] [place] [address] PCP - General Family Medicine 08/17/19 documented as of this encounter
--- OUTSIDE RECORDS SUMMARY | 2025-01-26 13:34 | XMS_ITS | Encounter Summary ---
Author Organization [facility] Address [address] [place] [address] Care Team Providers Care Pricing Specialist Name Role Phone Silvia Rodriguez MD Primary Care Provider Isi howe NameTone MD Primary Care Provider Unavailabl e Reason for Visit * Reason Onset Date Comments lab test 03/26/2018 Gastroenterolgy Encounter Details Date Type Department Care Team Description 03/26/2018 Telephone Gastroenterology - [address] [address] Jim Lema MD lab test (Gastroenterolgy) Social History Tobacco Use Types Packs/Day Years [...] encounter Miscellaneous Notes * Telephone Encounter - Radha Jacobo M.A. - 03/31/2018 10:01 AM EDT Tried to call patient her Mailbox is now full and I cant leave a message/map * Telephone Encounter - Radha Jacobo M.A. - 03/27/2018 4:19 PM EDT Tried to call pt no answer will call Friday/map * Telephone Encounter - Chetan Guzmán PA-C - 03/27/2018 12:59 PM EDT Will let pt know when H pylori stool test resulted. She can take simethicone for the gas pain. If pain gets worse and is unbearable, she should go to the ED * Telephone Encounter - Jim Lema MD - 03/26/2018 10:24 AM EDT I am sending this to Mrs. Guzmán, who recently saw this patient. * Telephone Encounter - Radha Jacobo M.A. - 03/26/2018 10:18 AM EDT Please advise/map * Telephone Encounter - Neisha Murdock - 03/26/2018 9:59 AM EDT FYI - Patient was not able to have a stool until yesterday 03/25/18 at 1:00pm did not have transporation available so she refrigerated the stool and brought it to [facility] this morning for 8:00am, patient stated that the lab was refusing to take her sample because results may come back as incunclusive patient gave them a hard time until the lab took the sample. Patient wants to make it clear that she does not have transportation readily available and that she does not go have a bowel movement every day she only goes like every 2 weeks. Patient is still has a lot of pain. Would like the results as soon as possible. documented in this encounter Plan of Treatment Not on file documented as of this encounter Visit Diagnoses Not on filedocumented in this encounter Care Teams Pricing Specialist Relationship Specialty Start Date End Date Al-Silvia Powers MD PCP - General 05/19/17 03/03/22 Name, MD Tone PCP - General Internal Medicine 03/04/22 documented as of this encounter
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
--- OUTSIDE RECORDS SUMMARY | 2025-01-26 13:34 | XMS_ITS | Encounter Summary ---
Author Organization [facility] Address [address] [place] [address] Care Team Providers Care Studio Potter Name Role Phone Name, Tone SEPULVEDA Primary Care Provider Unavailabl e Reason for Visit * Reason Comments E-prescribe Rx Request Encounter Details Date Type Department Care Team Description 02/07/2023 Refill Pulmonology - [place] [address] [facility] [address] [place] [address] Sean Heart MD [address] [place] [address] E-prescribe Rx Request Social History [...] (HCC) documented in this encounter Care Teams Studio Potter Relationship Specialty Start Date End Date Name, MD Tone PCP - General Internal Medicine 03/04/22 documented as of this encounter
--- OUTSIDE RECORDS SUMMARY | 2025-01-26 13:34 | XMS_ITS | Encounter Summary ---
Author Organization [facility] Address [address] [place] [address] Care Team Providers Care Dishwashing Machine Repairer Name Role Phone Name, Tone SEPULVEDA Primary Care Provider Unavailabl e Reason for Visit * Reason Onset Date Comments Prior Authorization 03/18/2024 Encounter Details Date Type Department Care Team Description 03/18/2024 Telephone Pulmonology - [place] [address] [facility] [address] [place] [address] Sean Heart MD [address] [place] [phone] Prior Authorization Social History Tobacco Use Types Packs/Day Years [...] Miscellaneous Notes * Telephone Encounter - Keesha Antonio M.A. - 03/30/2024 8:09 AM EDT Prior authorization for the symbicort was approved Approved from 01/07/24 until 09/07/24 Approval faxed to [facility] at [phone] * Telephone Encounter - Keesha Antonio M.A. - 03/24/2024 4:56 PM EDT Prior authorization for the symbicort completed today on cmm Dx code COPD Continuation of therapy * Telephone Encounter - Marsha Mayo - 03/18/2024 3:26 PM EDT Prior Authorization for Medication-do not complete and send this encounter unless you have the fax from the pharmacy. Is this a Cover My Meds request: Yes -- Pineda Code [id number] Name of Medication SYMBICORT Dose of Medication 160-4.5 MCG/ACT What is the RX # from the faxed refill? How does patient take this med? Aerosol What Pharmacy did the fax come from: [facility] pharmacy Pharmacy fax #: [phone] [employer] Information from fax: What Prescription Plan does the patient have? BIN/PCN if applicable: Cardholder ID: Person Code: Relationship Code: Help desk phone: [phone] documented in this encounter Plan of Treatment Not on file documented as of this encounter Visit Diagnoses Not on filedocumented in this encounter Care Teams Dishwashing Machine Repairer Relationship Specialty Start Date End Date Name, MD Tone PCP - General Internal Medicine 03/04/22 documented as of this encounter
--- OUTSIDE RECORDS SUMMARY | 2025-01-26 13:34 | XMS_ITS | Encounter Summary ---
Author Organization [facility] Address [address] [facility] [address] [place] [address] Care Team Providers Care District Recruiter Name Role Phone Name, Tone SEPULVEDA Primary Care Provider [phone] Reason for Visit * Reason Onset Date Comments Nurse Triage 04/10/2023 Encounter Details Date Type Department Care Team ([facility] st Contact Info) Description 04/10/2023 Telephone [facility] MEDICINE [address] [place], [place] [phone] Name, MD Tone [address] [place] [address] Nurse Triage Social History Tobacco Use Types [...] Telephone Encounter - Yady Allen RN - 04/10/2023 3:10 PM EDT Noted will send message to PCP as FYI. * Telephone Encounter - Doris Moore LPN - 04/10/2023 2:09 PM EDT Triage call returned to patient who reports that she just booked an appt. with PCP. Patient describes upper abdominal discomfort that has been ongoing for several months. No vomiting and no diarrhea reported at time of call. Reports that she wakes up in the morning with burning acid in her mouth. Confirms she is taking RX Omeprazole as ordered. Patient reports eating small meals and that she ordered Frisian food yesterday and only ate some of it. No fever no altered posture, No complaints of urinary pain. Per review of chart patient was to have US done of leg for swelliing and to follow with urine sample after that for complaints of dysuria.(PCP note 02/13/23) patient reports that she had US of abdomen and never had one of leg or urine sample dropped off. Patient unclear with appts and timing of evaluations. Patient pending surgeries this fall. No acute distress at time of call and wants to just keep appt. as scheduled with PCP 06/02/23, Offered alternate appt. and declined at time of call. Patient also complains of headaches that are chronic migraines she takes pain medication at baseline and it helps. No neuro deficits identified. No numbness of face or extremities. Disposition reviewed and patient in agreement with plan. Team tasked as FYI for PCP review of previous orders. Follow with patient as needed. [facility] Walk In Center hours and availability reviewed at time of call. Patient verbalized understanding. Reviewed with patient home care recommendations, reasons to call backand symptoms that require immediate evaluation in UC or ER. Pt verbalized understanding and agrees. Multiple (2) protocols were used on this call. Disposition for Call: Home Care Protocol Used: Abdominal Pain - Upper (Adult) Protocol-Based Disposition: See in Office or Video Visit within 2 Weeks Override (Final) Disposition: Home Care Override Reason: Caller refused suggested disposition Video visit offer not recorded Positive Triage Questions: * Abdominal pain is a chronic symptom (recurrent or ongoing AND lasting > 4 weeks) * Intermittent pains shoot into chest, with sour taste in mouth * All higher-acuity triage questions were negative Care Advice Discussed: * Drink Clear Fluids * Diet * Food Recommendations to Reduce Reflux * Reasons To Call Back - Abdomen pain is constant and present for more than 2 hours. - You become worse Protocol Used: Headache (Adult) Protocol-Based Disposition: Home Care Positive Triage Question: * Mild-moderate headache * All higher-acuity triage questions were negative Care Advice Discussed: * Pain Medicines * Rest * Apply Cold to the Area * Reasons To Call Back - Headache lasts longer than 24 hours - You become worse * Telephone Encounter - Deisy Ferrara - 04/10/2023 1:25 PM EDT Symptoms: Abdominal Pain - Female - Not , Loss of Appetite Outcome: Schedule an urgent appointment (within 4 hours) or talk to a nurse or provider soon Reason: Getting worse The caller accepted this outcome documented in this encounter Plan of Treatment Upcoming Encounters Date Type Department Care Team (Late st Contact Info) Description 02/02/2025 2:00 PM EDT Office Visit [facility] ADULT DENTAL [address] [place] [address] Danny Coleman DDS [address] [place] [address] 04/19/2025 2:45 PM EDT Office Visit [facility] MEDICINE [address] [place] [address] Name, MD Tone [address] [place] [address] documented as of this encounter Visit Diagnoses Not on filedocumented in this encounter Additional Health Concerns Assessment Noted Time PHQ-9 Depression Total Score: 0 12/26/19 23 1:52 PM EDT documented as of this encounter Care Teams District Recruiter Relationship Specialty Start Date End Date Tone Cool MD [address] [place] [address] PCP - General Family Medicine 08/17/19 documented as of this encounter
--- OUTSIDE RECORDS SUMMARY | 2025-01-26 13:34 | XMS_ITS | Encounter Summary ---
Author Organization [facility] Address [address] [place] [address] Care Team Providers Care Staffing Manager Name Role Phone Homero Aranda MD Primary Care Provider [phone] [place], Pcp Primary Care Provider Chino e Silvia Rodriguez MD Primary Care Provider Tone Barber MD Primary Care Provider Unavailnathan e Encounter Details Date Type Department Care Team Description 07/20/2015 Release of Information Medical Records [address] [place] [id number] Abstract, Provider Social History Tobacco Use Types [...] on filedocumented in this encounter Care Teams Staffing Manager Relationship Specialty Start Date End Date Homero Aranda MD [address] [place] [id number] PCP - General Internal Medicine 07/10/15 03/13/17 Mark Coronel [address] [place] [id number] PCP - General Internal Medicine 03/14/17 05/18/17 Silvia Rodriguez MD [address] [place] [id number] PCP - General 05/19/17 03/03/22 Tone Cool MD [address] [place] [id number] PCP - General Internal Medicine 03/04/22 documented as of this encounter
--- OUTSIDE RECORDS SUMMARY | 2025-01-26 13:34 | XMS_ITS | Encounter Summary ---
Author Organization [facility] Address [address] [place] [address] Care Team Providers Care Power Barker Name Role Phone Silvia Rodriguez MD Primary Care Provider Tone Barber MD Primary Care Provider Unavailnathan e Encounter Details Date Type Department Care Team Description 10/30/2017 [place] Chief Delivery Report Medical Records [address] [place] [address] Sue Haynes NP Social History Tobacco Use [...] on filedocumented in this encounter Care Teams Power Barker Relationship Specialty Start Date End Date Silvia Rodriguez MD PCP - General 05/19/17 03/03/22 Tone Cool MD PCP - General Internal Medicine 03/04/22 documented as of this encounter
--- OUTSIDE RECORDS SUMMARY | 2025-01-26 13:34 | XMS_ITS | Encounter Summary ---
Author Organization [facility] Address [address] [place] [address] Care Team Providers Care Outbound Sales Agent Name Role Phone Homero Aranda MD Primary Care Provider [phone] [facility], Pcp Primary Care Provider Unavailabl e Silvia Rodriguez MD Primary Care Provider Isi howe Name, Tone SEPULVEDA Primary Care Provider Unavailabl e Reason for Visit * Reason Onset Date Comments DME Request 04/03/2016 Encounter Details Date Type Department Care Team Description 04/03/2016 Telephone Adult Medicine [address] [address] Homero Aranda MD [address] [place] [address] DME Request Social History Tobacco Use Types [...] Telephone Encounter - Hoda Dukes M.A. - 04/16/2016 8:58 AM EDT L/m message for pt to call back can only speak to pt or daughter or son * Telephone Encounter - Lesley Victoria M.A. - 04/05/2016 4:33 PM EDT Unable to speak to Mari as there is no verbal release signed for her. * Telephone Encounter - Oriana Taylor - 04/03/2016 10:07 AM EDT Caller requesting call back from provider: Is the caller the patient? NO If caller is not the patient, what is the callers name? Bika Callers relationship to patient? Community Connection If person calling is not the patient themselves, is there a verbal release in FYI or permanent comments for this person: NO Reason for call back: Mari states the patient received a prescription for a raised toilet seat but a versa fram was delivered and because it has been over 30 days, the insurance will not cover another prescription for a raised toilet seat or take the versa frame back. Mari states the versa fram doesn't fot properly so if she can only get a versa fram then they will need one that fits better but she is not sure about sizing. Caller offered to speak with the nurse for assistance: YES Response: Patient offered to speak with nurse for assistance and patient agreed. Message forwarded to nurse. documented in this encounter Plan of Treatment Not on file documented as of this encounter Visit Diagnoses Not on filedocumented in this encounter Care Teams Outbound Sales Agent Relationship Specialty Start Date End Date Homero Aranda MD [address] [place] [address] PCP - General Internal Medicine 07/10/15 03/13/17 Homer, Mark [address] [place] [address] PCP - General Internal Medicine 03/14/17 05/18/17 Silvia Rodriguez MD [address] [place] [address] PCP - General 05/19/17 03/03/22 Tone Cool MD [address] [place] [address] PCP - General Internal Medicine 03/04/22 documented as of this encounter
--- OUTSIDE RECORDS SUMMARY | 2025-01-26 13:34 | XMS_ITS | Encounter Summary ---
Author Organization [facility] Address [address] [place] [address] Care Team Providers Care Shipping Clerk Packing Name Role Phone Homero Aranda MD Primary Care Provider [phone] Community, Pcp Primary Care Provider Unavailnathan e Silvia Rodriguez MD Primary Care Provider Isi howe NameTone MD Primary Care Provider Unavailabl e Encounter Details Date Type Department Care Team Description 2016 Plater Helper Report Medical Records [address] [place] [address] Brent Fields MD [address] [place] [address] Social History Tobacco Use Types Packs/Day Years [...] on filedocumented in this encounter Care Teams Shipping Clerk Packing Relationship Specialty Start Date End Date Homero Aranda MD [address] [place] [address] PCP - General Internal Medicine 07/10/15 03/13/17 [facility], Pcp [address] [place] [address] PCP - General Internal Medicine 03/14/17 05/18/17 Silvia Rodriguez MD [address] [place] [address] PCP - General 05/19/17 03/03/22 Name, MD Tone [address] [place] [address] PCP - General Internal Medicine 03/04/22 documented as of this encounter
--- OUTSIDE RECORDS SUMMARY | 2025-01-26 13:34 | XMS_ITS | Encounter Summary ---
Author Organization [employer] Address [address] [facility] 7t [place] [address] Care Team Providers Care Claim Professional Name Role Phone Name, Tone SEPULVEDA Primary Care Provider [phone] Reason for Visit * Reason Onset Date Comments Prior Authorization 08/11/2023 clonazePAM Encounter Details Date Type Department Care Team ([facility] st Contact Info) Description 08/11/2023 Telephone [facility] [address] [place] [address] Name, MD Tone [address] [place] [address] Prior Authorization (clonazePAM) Social History Tobacco Use Types Packs/Day Years [...] t he electric, gas, oil or water [place] threatened to shut off services in your [...] encounter Miscellaneous Notes * Telephone Encounter - Lisa Carolina - 08/15/2023 10:49 AM EST PA Order was generation and placed on provider desk for review and signature. * Telephone Encounter - Ana Paula Weber - 08/11/2023 12:13 PM EST Tc from pt requesting PA for clonazePAM (KlonoPIN) 1 MG tablet documented in this encounter Plan of Treatment Upcoming Encounters Date Type Department Care Team (Late st Contact Info) Description 02/02/2025 2:00 PM EDT Office Visit [facility] ADULT DENTAL [address] [place] [address] Danny Coleman DDS [address] [place] [address] 04/19/2025 2:45 PM EDT Office Visit [facility] MEDICINE [address] [place] [address] NameTone MD [address] [place] [address] documented as of this encounter Visit Diagnoses Not on filedocumented in this encounter Additional Health Concerns Assessment Noted Time PHQ-9 Depression Total Score: 0 12/26/19 23 1:52 PM EDT documented as of this encounter Care Teams Claim Professional Relationship Specialty Start Date End Date Tone Cool MD [address] [place] [address] PCP - General Family Medicine 08/17/19 documented as of this encounter
--- OUTSIDE RECORDS SUMMARY | 2025-01-26 13:34 | XMS_ITS | Encounter Summary ---
Author Organization [facility] Address [address] [place] [address] Care Team Providers Care Wellness Nurse Name Role Phone Silvia Rodriguez MD Primary Care Provider Tone Barber MD Primary Care Provider Unavailnathan e Encounter Details Date Type Department Care Team Description 10/02/2017 Market Analysis Director Report Medical Records [address] [place] [address] Sue Haynes NP Social History Tobacco Use [...] on filedocumented in this encounter Care Teams Wellness Nurse Relationship Specialty Start Date End Date Silvia Rodriguez MD PCP - General 05/19/17 03/03/22 Tone Cool MD PCP - General Internal Medicine 03/04/22 documented as of this encounter
--- OUTSIDE RECORDS SUMMARY | 2025-01-26 13:34 | XMS_ITS | Encounter Summary ---
Author Organization [facility] Address [address] [place] [address] Care Team Providers Care Crutch Maker Name Role Phone Silvia Rodriguez MD Primary Care Provider Isi howe NameTone MD Primary Care Provider Unavailabl e Reason for Visit * Reason Onset Date Comments Provider Call Back 05/23/2017 Encounter Details Date Type Department Care Team Description 05/23/2017 Telephone Physiatry - [address] [address] Jeanmarie John DO Provider Call Back Social History Tobacco Use [...] encounter Miscellaneous Notes * Telephone Encounter - Andressa Collazo M.A. - 05/27/2017 3:29 PM EDT Note can not be faxed without a release. Can you please have patient stop in and sign a release * Telephone Encounter - Sara Lara - 05/27/2017 10:53 AM EDT Patient said she is sorry. Wrong fax # was given. [phone] * Telephone Encounter - Sara Lara - 05/27/2017 10:43 AM EDT Patient called with fax # for PCP [phone] * Telephone Encounter - Viola Corbett - 05/27/2017 10:11 AM EDT Left message for patient to call. Where does the note need to go? Fax number of [facility] * Telephone Encounter - Jeanmarie John - 05/26/2017 5:36 PM EDT I'm not exactly sure why this was forwarded to me, medical records have to forward my note to her primary care provider. Whatever the normal process is. * Telephone Encounter - Andressa Collazo M.A. - 05/26/2017 4:08 PM EDT Please advise * Telephone Encounter - Bobbi Ball - 05/26/2017 4:01 PM EDT Patient is calling stating her PCP still didn't get any paperwork from Dr John. Phone number is [phone], patient will call back with fax number. * Telephone Encounter - Viola Fierro M.A. - 05/23/2017 3:[address] John, Please Review and advise * Telephone Encounter - Dhara Cabral - 05/23/2017 3:39 PM EDT Caller requesting call back from provider: Is the caller the patient? YES If caller is not the patient, what is the callers name? N/A Callers relationship to patient? N/A If person calling is not the patient themselves, is there a verbal release in FYI or permanent comments for this person: NO Reason for call back: Patient called stating that Dr John was supposed to send something over to her primary regarding a medication but they have not received it yet. Patient is wondering what the status is on that per patient she is in pain and they are holding her medication until they receive that. Please advise. Caller offered to speak with the nurse for assistance: YES Response: Patient offered to speak with nurse for assistance and patient agreed. Message forwarded to nurse. documented in this encounter Plan of Treatment Not on file documented as of this encounter Visit Diagnoses Not on filedocumented in this encounter Care Teams Crutch Maker Relationship Specialty Start Date End Date Al-Silvia Powers MD PCP - General 05/19/17 03/03/22 Tone Cool MD PCP - General Internal Medicine 03/04/22 documented as of this encounter
--- OUTSIDE RECORDS SUMMARY | 2025-01-26 13:34 | XMS_ITS | Encounter Summary ---
Author Organization [employer] Address [address] [facility] 7t [place] [address] Care Team Providers Care Fiberglass Laminator Name Role Phone Name, Tone SEPULVEDA Primary Care Provider [phone] Reason for Visit * Reason Onset Date Comments Prior Authorization 01/07/2023 Encounter Details Date Type Department Care Team ([facility] st Contact Info) Description 01/07/2023 Telephone [facility] [address] [place], [place] [phone] Name, MD Tone [address] [place] [address] Prior Authorization Social History Tobacco Use Types [...] PM EDT documented as of this encounter Miscellaneous Notes * Telephone Encounter - Annie Velazquez - 01/07/2023 1:22 PM EDT PA for Clonazepam faxed to * Telephone Encounter - Deisy Josias - 01/07/2023 12:17 PM EDT Tc from patient calling in regards to PA for medications clonazePAM (KlonoPIN) 1 MG tablet and pregabalin (Lyrica) 300 MG capsule. documented in this encounter Plan of Treatment Upcoming Encounters Date Type Department Care Team (Late st Contact Info) Description 02/02/2025 2:00 PM EDT Office Visit [facility] ADULT DENTAL [address] [place] [address] Danny Coleman DDS [address] [place] [address] 04/19/2025 2:45 PM EDT Office Visit [facility] MEDICINE [address] [place] [address] Name, MD Tone [address] [place] [address] documented as of this encounter Visit Diagnoses Not on filedocumented in this encounter Additional Health Concerns Assessment Noted Time PHQ-9 Depression Total Score: 0 12/26/19 23 1:52 PM EDT documented as of this encounter Care Teams Fiberglass Laminator Relationship Specialty Start Date End Date Name, MD Tone [address] [place] [address] PCP - General Family Medicine 08/17/19 documented as of this encounter
--- OUTSIDE RECORDS SUMMARY | 2025-01-26 13:34 | XMS_ITS | Encounter Summary ---
Author Organization [employer] Address [address] [facility] [place] [address] Care Team Providers Care Accounting Lecturer Name Role Phone Name, Tone SEPULVEDA Primary Care Provider [phone] Reason for Visit * Reason Onset Date Comments Call Back Request 09/16/2023 Encounter Details Date Type Department Care Team ([facility] st Contact Info) Description 09/16/2023 Telephone [facility] [address] [place] [address] Name, MD Tone [address] [place] [address] Call Back Request Social History Tobacco Use Types Packs/Day [...] encounter Miscellaneous Notes * Telephone Encounter - Toni Galdamez - 09/16/2023 3:32 PM EST Tc from patient calling requesting to speak with a nurse states has a missed call and was advised to call back the call center however contract technical writer does not see anything on patient chart documented in this encounter Plan of Treatment Upcoming Encounters Date Type Department Care Team (Late st Contact Info) Description 02/02/2025 2:00 PM EDT Office Visit [facility] ADULT DENTAL [address] [place] [address] Danny Coleman DDS [address] [place] [address] 04/19/2025 2:45 PM EDT Office Visit [facility] MED[facility] [address] [place] [address] NameTone MD [address] [place] [address] documented as of this encounter Visit Diagnoses Not on filedocumented in this encounter Additional Health Concerns Assessment Noted Time PHQ-9 Depression Total Score: 0 12/26/19 23 1:52 PM EDT documented as of this encounter Care Teams Accounting Lecturer Relationship Specialty Start Date End Date NameTone MD [address] [place] [address] PCP - General Family Medicine 08/17/19 documented as of this encounter
--- OUTSIDE RECORDS SUMMARY | 2025-01-26 13:34 | XMS_ITS | Encounter Summary ---
Author Organization [facility] Address [address] [place] [address] Care Team Providers Care Pump Erector Helper Name Role Phone Name, Tone SEPULVEDA Primary Care Provider Unavailabl e Reason for Visit * Reason Onset Date Comments Pre-op Needed 05/01/2023 Encounter Details Date Type Department Care Team Description 05/01/2023 Telephone Pulmonology - [place] [address] [facility] [address] [place] [address] Sean Heart MD [address] [place] [phone] Pre-op Needed Social History Tobacco Use Types Packs/Day Years [...] encounter Miscellaneous Notes * Telephone Encounter - Baltazar Tejeda CMA - 05/01/2023 12:51 PM EDT Pt has appt on 06/20/[address] Heart * Telephone Encounter - Keesha Sampson - 05/01/2023 10:50 AM EDT Libby jimenez [facility] called regarding Pt. Pt is having surgery 07/14/2023. Libby requests pt provider send pulmonary clearance to Libby @ [facility] for surgery 07/14/23 Libby Kerr Call back No: [phone] Julio C robles. 05/01/2023- lp documented in this encounter Plan of Treatment Not on file documented as of this encounter Visit Diagnoses Not on filedocumented in this encounter Care Teams Pump Erector Helper Relationship Specialty Start Date End Date Name, MD Tone PCP - General Internal Medicine 03/04/22 documented as of this encounter
--- OUTSIDE RECORDS SUMMARY | 2025-01-26 13:34 | XMS_ITS | Encounter Summary ---
Author Organization [facility] Address [address] [place] [address] Care Team Providers Care Propeller Driven Airplane Mechanic Name Role Phone Homero Aranda MD Primary Care Provider [phone] [facility], Pcp Primary Care Provider Unavailabl e Silvia Rodriguez MD Primary Care Provider Isi howe Name, Tone SEPULVEDA Primary Care Provider Unavailabl e Reason for Visit * Reason Onset Date Comments Faxed Order 12/21/2015 Grzegorz Encounter Details Date Type Department Care Team Description 12/21/2015 Telephone Adult Medicine - [address] [address] Hmoero Aranda MD [address] [place] [address] Faxed Order (Grzegorz) Social History Tobacco Use Types Packs/Day Years [...] encounter Miscellaneous Notes * Telephone Encounter - Chapincito Greenfield - 12/21/2015 1:11 PM EDT PCP summary from Grzegorz. Sent to [facility] for review, signature, and fax. Thank you. documented in this encounter Plan of Treatment Not on file documented as of this encounter Visit Diagnoses Not on filedocumented in this encounter Care Teams Propeller Driven Airplane Mechanic Relationship Specialty Start Date End Date Homero Aranda MD [address] [place] [address] PCP - General Internal Medicine 07/10/15 03/13/17 [facility], [address] [address] PCP - General Internal Medicine 03/14/17 05/18/17 Silvia Rodriguez MD [address] [place] [address] PCP - General 05/19/17 03/03/22 Name, MD Tone [address] [place] [address] PCP - General Internal Medicine 03/04/22 documented as of this encounter
--- OUTSIDE RECORDS SUMMARY | 2025-01-26 13:34 | XMS_ITS | Encounter Summary ---
Author Organization [employer] Address [address] [place] [address] 7 [place] [address] Care Team Providers Care Mining Detail Draftsperson Name Role Phone Name, Tone SEPULVEDA Primary Care Provider [phone] Reason for Visit * Reason Onset Date Comments Referral 04/16/2023 Encounter Details Date Type Department Care Team ([facility] st Contact Info) Description 04/16/2023 Telephone [facility] MED[facility]INE [address] [place], [place] [phone] Name, MD Tone [address] [place] [address] Referral Social History Tobacco Use Types Packs/Day [...] encounter Miscellaneous Notes * Telephone Encounter - Jasmin Cates - 04/16/2023 10:59 AM EDT Tc from pt requesting a referral to a kidney specialist. Location: [address] [place] [address] Date: n/a Time: n/a Specialty: technical solutions director documented in this encounter Plan of Treatment Upcoming Encounters Date Type Department Care Team (Late st Contact Info) Description 02/02/2025 2:00 PM EDT Office Visit [facility] ADULT DENTAL [address] [place] [address] Danny Coleman DDS [address] [place] [address] 04/19/2025 2:45 PM EDT Office Visit [facility] MED[facility]INE [address] [place], [place] [phone] Name, MD Tone [address] [place], [place] [phone] documented as of this encounter Visit Diagnoses Not on filedocumented in this encounter Additional Health Concerns Assessment Noted Time PHQ-9 Depression Total Score: 0 12/26/19 23 1:52 PM EDT documented as of this encounter Care Teams Mining Detail Draftsperson Relationship Specialty Start Date End Date Tone Cool MD [address] [place] [address] PCP - General Family Medicine 08/17/19 documented as of this encounter
--- OUTSIDE RECORDS SUMMARY | 2025-01-26 13:34 | XMS_ITS | Encounter Summary ---
Author Organization [facility] Address [address] [place] [address] Care Team Providers Care Photo Tube Assembler Name Role Phone Name, Tone SEPULVEDA Primary Care Provider Unavailabl e Reason for Visit * Reason Comments E-prescribe Rx Request Encounter Details Date Type Department Care Team Description 11/26/2022 Refill Pulmonology - [place] [address] [facility] [address] [place] [address] Sean Heart MD [address] [place] [phone] E-prescribe Rx Request Social History Tobacco Use [...] Telephone Encounter - Baltazar Tejeda CMA - 11/26/2022 1:51 PM EDT AISHA 04/12/22 NOV 01/13/23 * Telephone Encounter - Regina Cui - 11/26/2022 10:40 AM EDT Patient would like script to be: E-PRESCRIBED/FAXED TO PHARMACY WHEN WAS THE PATIENT'S LAST APPOINTMENT IN ADULT MEDICINE? 04/12/22 WHEN WAS THE LAST TIME THE PATIENT SAW THEIR PCP? Same as above Does patient have an upcoming appointment? Yes 01/13/23 (THE MEDICATION REQUESTED IS ON THE MED [...] N/A Patients current insurance carrier is: [place] / Plan: [place]ICAID [place] / Product Type: MEDICAID [id number] documented in this encounter Plan of Treatment Not on file documented as of this encounter Visit Diagnoses Diagnosis Chronic obstructive pulmonary disease, unspecified COPD type (HCC) documented in this encounter Care Teams Photo Tube Assembler Relationship Specialty Start Date End Date Name, MD Tone PCP - General Internal Medicine 03/04/22 documented as of this encounter
--- OUTSIDE RECORDS SUMMARY | 2025-01-26 13:34 | XMS_ITS | Encounter Summary ---
Author Organization [facility] Address [address] [place] [address] Care Team Providers Care International Trade Manager Name Role Phone Community, Pcp Primary Care Provider Silvia Ross MD Primary Care Provider Tone Barber MD Primary Care Provider Chino bateman Encounter Details Date Type Department Care Team Description 05/17/2017 Release of Information Medical Records [address] [place] [address] Abstract, Provider Social History Tobacco Use Types [...] on filedocumented in this encounter Care Teams International Trade Manager Relationship Specialty Start Date End Date Community, Pcp PCP - General Internal Medicine 03/14/17 05/18/17 Silvia Rodriguez MD PCP - General 05/19/17 03/03/22 Tone Cool MD PCP - General Internal Medicine 03/04/22 documented as of this encounter
--- OUTSIDE RECORDS SUMMARY | 2025-01-26 13:34 | XMS_ITS | Encounter Summary ---
Author Organization [facility] Address [address] [place] [address] Care Team Providers Care Distilling Department Supervisor Name Role Phone Name, Tone SEPULVEDA Primary Care Provider Unavailabl e Reason for Visit * Reason Onset Date Comments Testing 05/28/2023 Encounter Details Date Type Department Care Team Description 05/28/2023 Telephone Pulmonology - [place] [address] [facility] [address] [place] [address] Sean Heart MD [address] [place] [phone] Testing Social History Tobacco Use Types Packs/Day [...] Telephone Encounter - Baltazar Tejeda CMA - 05/30/2023 9:06 AM EDT Please schedule 6 mw * Telephone Encounter - Sean Heart MD - 05/29/2023 5:23 PM EDT 6 minute walk test- order in * Telephone Encounter - Baltazar Tejeda CMA - 05/29/2023 1:06 PM EDT AISHA 04/12/22 NOV 06/20/23 Please review and advise * Telephone Encounter - Harshad Galdamez - 05/28/2023 2:26 PM EDT Ptfarrah needs an order for a 6minute walk . For her recertification for nicole To continue O2 . Please put order for patient ,, thanks documented in this encounter Plan of Treatment Scheduled Orders Name Type Priority Associated Diagnoses Orde r Schedule [place] PULMONARY STRESS TESTING Pulmonology Routine Chronic obstructive pulmonary disease, unspecified COPD type (HCC) Expected: 05/29/2023, Expires: 05/28/2024 documented as of this encounter Visit Diagnoses Diagnosis Chronic obstructive pulmonary disease, unspecified COPD type (HCC)- Primary documented in this encounter Care Teams Distilling Department Supervisor Relationship Specialty Start Date End Date Name, MD Tone PCP - General Internal Medicine 03/04/22 documented as of this encounter
--- OUTSIDE RECORDS SUMMARY | 2025-01-26 13:34 | XMS_ITS | Encounter Summary ---
Author Organization [facility] Address [address] [place] [address] Care Team Providers Care Biomedical Analytical Scientist Name Role Phone Homero Aranda MD Primary Care Provider [phone] Homer, Pcp Primary Care Provider Unavailnathan e Silvia Rodriguez MD Primary Care Provider Isi howe NameTone MD Primary Care Provider Unavailabl e Encounter Details Date Type Department Care Team Description 12/18/2016 SCAN Medical Records [address] [place] [address] Abstract, Provider Social History Tobacco Use Types [...] Name Priority Date/Time Associated Diagnosis Comments OUTSIDE MRI/MRA Routine 12/13/2016 documented in this encounter Results * OUTSIDE MRI/MRA (12/13/2016) Provider Abstract RADIOLOGY documented in this encounter Visit Diagnoses Not on filedocumented in this encounter Care Teams Biomedical Analytical Scientist Relationship Specialty Start Date End Date Homero Aranda MD [address] [place] [address] PCP - General Internal Medicine 07/10/15 03/13/17 [facility], [address] [address] PCP - General Internal Medicine 03/14/17 05/18/17 Frdey-Silvia Powers MD [address] [place] [address] PCP - General 05/19/17 03/03/22 Name, MD Tone [address] [place] [address] PCP - General Internal Medicine 03/04/22 documented as of this encounter
--- OUTSIDE RECORDS SUMMARY | 2025-01-26 13:34 | XMS_ITS | Encounter Summary ---
Author Organization [employer] Address [address] [facility] [address] [place] [address] Care Team Providers Care Shaft Sinker Name Role Phone Name, Tone SEPULVEDA Primary Care Provider [phone] Reason for Visit * Reason Onset Date Comments FYI 08/11/2023 Encounter Details Date Type Department Care Team ([facility] st Contact Info) Description 08/11/2023 Telephone [facility] [address] [place] [address] Name, MD Tone [address] [place] [address] FYI Social History Tobacco Use Types Packs/Day Years [...] Telephone Encounter - Fernando Keller RN - 08/11/2023 9:48 AM EST FYI * Telephone Encounter - Jasmin Cates - 08/11/2023 9:19 AM EST Tc from [facility] calling to advise PCP pt will be admitted tomorrow (08/12) for PT services. documented in this encounter Plan of Treatment Upcoming Encounters Date Type Department Care Team (Late st Contact Info) Description 02/02/2025 2:00 PM EDT Office Visit [facility] [address] [place] [id number] Danny Coleman DDS [address] [place] [address] 04/19/2025 2:45 PM EDT Office Visit [facility] [address] [place] [phone] Tone Cool MD [address] [place] [address] documented as of this encounter Visit Diagnoses Not on filedocumented in this encounter Additional Health Concerns Assessment Noted Time PHQ-9 Depression Total Score: 0 12/26/19 23 1:52 PM EDT documented as of this encounter Care Teams Shaft Sinker Relationship Specialty Start Date End Date Tone Cool MD [address] [place] [address], [place] [address] PCP - General Family Medicine 08/17/19 documented as of this encounter
--- OUTSIDE RECORDS SUMMARY | 2025-01-26 13:34 | XMS_ITS | Encounter Summary ---
Author Organization [employer] Address [address] [facility] 7[address] [place] [address] Care Team Providers Care Gravity Prospecting Operator Name Role Phone Name, Tone SEPULVEDA Primary Care Provider [phone] Reason for Visit * Reason Onset Date Comments Medication Question 08/18/2023 Encounter Details Date Type Department Care Team ([facility] st Contact Info) Description 08/18/2023 Telephone [facility] [address] [place] [address] Name, MD Tone [address] [place] [address] Medication Question Social History Tobacco Use Types [...] Telephone Encounter - Fernando Keller RN - 08/19/2023 5:04 PM EST CODY Sarah has question for refill for Darien-24 400 MG 24 hr capsule. Pt. Was stating that she is having problem to refill this meds. Sarah informed to advised pt. To give call to pharmacy for refill. Pt. Also states that she Is taking Amlodipine 2.5 mg one tablet instead of 2 tablets ( prescribe total DOSE 5 MG ). Sarah advised to inform pt. To take 2 tablet of 2.5 mg Amlodipine ( Total 5 mg ) . Sarah verbally agreed and understood. Advised to give call to [facility] if any questions or concerns. * Telephone Encounter - Sherri Cummings - 08/18/2023 3:58 PM EST Tc from Sarah with [facility] requesting a call from a nurse in regards to pt med list not coordinating with what she has. Please contact Sarah @ [phone] documented in this encounter Plan of Treatment Upcoming Encounters Date Type Department Care Team (Late st Contact Info) Description 02/02/2025 2:00 PM EDT Office Visit [facility] [address] [place] [address] Danny Coleman DDS [address] [place] [address] 04/19/2025 2:45 PM EDT Office Visit [facility] [address] [place] [address] Name, MD Tone [address] [place] [address] documented as of this encounter Visit Diagnoses Not on filedocumented in this encounter Additional Health Concerns Assessment Noted Time PHQ-9 Depression Total Score: 0 12/26/19 23 1:52 PM EDT documented as of this encounter Care Teams Gravity Prospecting Operator Relationship Specialty Start Date End Date Name, MD Tone [address] [place] [id number] PCP - General Family Medicine 08/17/19 documented as of this encounter
--- OUTSIDE RECORDS SUMMARY | 2025-01-26 13:34 | XMS_ITS | Encounter Summary ---
Author Organization [employer] Address [address] [facility] [address] [place] [address] Care Team Providers Care Cross Country/Track And Field Coach Name Role Phone Name, Tone SEPULVEDA Primary Care Provider [phone] Reason for Visit * Reason Comments Med Change Request Encounter Details Date Type Department Care Team ([facility] st Contact Info) Description 08/09/2024 Refill [facility] [address] [place] [address] Name, MD Tone [address] [place] [address] Social History Tobacco Use Types Packs/Day Years [...] Description 02/02/2025 2:00 PM EDT Office Visit [facility] [address] [place] [address] Danny Coleman DDS [address] [place] [address] 04/19/2025 2:45 PM EDT Office Visit [facility] [address] [place] [address] NameTone MD [address] [place] [address] documented as of this encounter Visit Diagnoses Not on filedocumented in this encounter Additional Health Concerns Assessment Noted Time PHQ-9 Depression Total Score: 11 024 2:10 PM EDT documented as of this encounter Care Teams Cross Country/Track And Field Coach Relationship Specialty Start Date End Date NameTone MD [address] [place] [id number] PCP - General Family Medicine 08/17/19 documented as of this encounter
--- OUTSIDE RECORDS SUMMARY | 2025-01-26 13:34 | XMS_ITS | Clinical Summary ---
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 Performing Organization Address [facility]/ZIP Co de Phone Number [facility] [address] [place] [address] [phone] * (ABNORMAL) Colonoscopy (06/09/2023) Colonoscopy Abnormal(A ) Normal us Tone Cool MD HEALTH MAINTENANCE Final Result * Hm Mammography (03/10/2023) Mammogram bi-rads 1 Anatomical Region Laterality Modality Other Tone Cool MD HEALTH MAINTENANCE Final Result from Last 3 Months or Most Recently Relevant to Health Maintenance Insurance [facility] STANDARD [facility] MEDICARE REPLACEMENT DENTAL-[facility] MEDICAID STAND ADULT Care Teams Mix Chemist Relationship Specialty Start Date End Date Name, MD Tone [address] [place] [address] PCP - General Family Medicine 08/17/19
--- OUTSIDE RECORDS SUMMARY | 2025-01-26 13:34 | XMS_ITS | Encounter Summary ---
Author Organization [facility] Address [address] [place] [address] Care Team Providers Care Criminal Justice Instructor Name Role Phone Homero Aranda MD Primary Care Provider [phone] Community, Pcp Primary Care Provider Unavailabl e Silvia Rodriguez MD Primary Care Provider Isi howe NameTone MD Primary Care Provider Unavailabl e Reason for Visit * Reason Comments E-prescribe Rx Request Encounter Details Date Type Department Care Team Description 05/19/2016 Refill Adult Medicine [facility] [address] [place] [address] Ana Carias FNP E-prescribe Rx Request Social History Tobacco Use [...] encounter Miscellaneous Notes * Telephone Encounter - Summer Jarvis L.P.N. - 05/20/2016 1:46 PM EDT Last office visit 05/09/16 Scheduled appt 05/29/16 Last refill was 04/23/16 for 30 tabs, to be used BID PRN. Component Value Date URINEOXYCOD POSITIVE 01/02/2016 URBENZO NEGATIVE 01/02/2016 URAMPHETAMIN NEGATIVE 01/02/2016 URMARIJUANA NEGATIVE 01/02/2016 UROPIATES NEGATIVE 01/02/2016 URBARBITUATE NEGATIVE 01/02/2016 URCOCAINE NEGATIVE 01/02/2016 HYDROCODONE Negative 01/02/2016 * Telephone Encounter - Kim Wilson - 05/20/2016 1:44 PM EDT Patient would like script to be: E-PRESCRIBED/FAXED TO PHARMACY WHEN WAS THE PATIENT'S LAST APPOINTMENT IN ADULT MEDICINE? 05-09-16 WHEN WAS THE LAST TIME THE PATIENT SAW THEIR PCP? Same as above Does patient have an upcoming appointment? Yes 05-29-16 (THE MEDICATION REQUESTED IS ON THE MED LIST ABOVE) All of the medications requested were on the CURRENT MEDS list Did you check the Pharmacy information above?: YES Patient wants: 30 -day supply Is this a mail order prescription request ? NO Patients current insurance carrier is: Payor: MEDICAID-[place] / Plan: MEDICAID PCC / Product Type: MEDICAID [id number] documented in this encounter Plan of Treatment Not on file documented as of this encounter Visit Diagnoses Not on filedocumented in this encounter Care Teams Criminal Justice Instructor Relationship Specialty Start Date End Date Homero Aranda MD [address] [place] [address] PCP - General Internal Medicine 07/10/15 03/13/17 [facility], Mark [address] [place] [address] PCP - General Internal Medicine 03/14/17 05/18/17 Silvia Rodriguez MD [address] [place] [address] PCP - General 05/19/17 03/03/22 Name, MD Tone [address] [place] [address] PCP - General Internal Medicine 03/04/22 documented as of this encounter
--- OUTSIDE RECORDS SUMMARY | 2025-01-26 13:35 | XMS_ITS | Encounter Summary ---
Author Organization [facility] Address [address] [place] [address] Care Team Providers Care Neurological Physiotherapist Name Role Phone Homero Aranda MD Primary Care Provider [phone] Homer, Pcp Primary Care Provider Unavailnathan e Silvia Rodriguez MD Primary Care Provider Tone Barber MD Primary Care Provider Unavailnathan e Encounter Details Date Type Department Care Team Description 09/02/2015 Transfer Records Medical Records [address] [place] [id number] [place] [address] Social History Tobacco Use Types Packs/Day Years [...] on filedocumented in this encounter Care Teams Neurological Physiotherapist Relationship Specialty Start Date End Date Homero Aranda MD [address] [place] [address] PCP - General Internal Medicine 07/10/15 03/13/17 Mark Coronel [address] [place] [address] PCP - General Internal Medicine 03/14/17 05/18/17 Silvia Rodriguez MD [address] [place] [address] PCP - General 05/19/17 03/03/22 Tone Cool MD [address] [place] [address] PCP - General Internal Medicine 03/04/22 documented as of this encounter
--- OUTSIDE RECORDS SUMMARY | 2025-01-26 13:35 | XMS_ITS | Encounter Summary ---
Author Organization [facility] Address [address] [place] [address] Care Team Providers Care Outdoor Advertising Leasing Agent Name Role Phone Homero Aranda MD Primary Care Provider [phone] [facility], Pcp Primary Care Provider Unavailabl e Silvia Rodriguez MD Primary Care Provider Isi howe Name, Tone SEPULVEDA Primary Care Provider Unavailabl e Reason for Visit * Reason Onset Date Comments Form 09/15/2015 Critical access hospital Encounter Details Date Type Department Care Team Description 09/15/2015 Telephone Adult Medicine - [address] [address] Homero Aranda MD [address] [place] [phone] Form ([facility]) Social History Tobacco Use Types Packs/Day Years [...] encounter Miscellaneous Notes * Telephone Encounter - Silvia Carolina - 09/15/2015 9:51 AM EST 6 Month Annual Physician Review form received. To B side for completion. documented in this encounter Plan of Treatment Not on file documented as of this encounter Visit Diagnoses Not on filedocumented in this encounter Care Teams Outdoor Advertising Leasing Agent Relationship Specialty Start Date End Date Homero Aranda MD [address] [place] [address] PCP - General Internal Medicine 07/10/15 03/13/17 [facility], [address] [address] PCP - General Internal Medicine 03/14/17 05/18/17 Silvia Rodriguez MD [address] [place] [address] PCP - General 05/19/17 03/03/22 Name, MD Tone [address] [place] [address] PCP - General Internal Medicine 03/04/22 documented as of this encounter
--- OUTSIDE RECORDS SUMMARY | 2025-01-26 13:35 | XMS_ITS | Encounter Summary ---
Author Organization [employer] Address [address] [facility] [address]t [place] [address] Care Team Providers Care Polysilicon Preparation Worker Name Role Phone Name, Tone SEPULVEDA Primary Care Provider [phone] Reason for Visit * Reason Onset Date Comments Hospital Follow-up 06/10/2023 Encounter Details Date Type Department Care Team ([facility] st Contact Info) Description 06/10/2023 Telephone [facility] [address] [place], [place] [phone] Name, MD Tone [address] [place] [address] Hospital Follow-up Social History Tobacco Use Types Packs/Day [...] encounter Miscellaneous Notes * Telephone Encounter - Vicky Hoskins - 06/10/2023 12:09 PM EDT Patient calling for HDF follow up appointment. Patient hospitalized [facility] [place] and discharged on 06/09/23. Patient advised will forward to triage nurse for follow up and appointment scheduling. documented in this encounter Plan of Treatment Upcoming Encounters Date Type Department Care Team (Late st Contact Info) Description 02/02/2025 2:00 PM EDT Office Visit [facility] [address] [place] [address] Danny Coleman DDS [address] [place] [address] 04/19/2025 2:45 PM EDT Office Visit [facility] [address] [place] [address] NameTone MD [address] [place] [address] documented as of this encounter Visit Diagnoses Not on filedocumented in this encounter Additional Health Concerns Assessment Noted Time PHQ-9 Depression Total Score: 0 12/26/19 23 1:52 PM EDT documented as of this encounter Care Teams Polysilicon Preparation Worker Relationship Specialty Start Date End Date NameTone MD [address] [place] [address] PCP - General Family Medicine 08/17/19 documented as of this encounter
--- OUTSIDE RECORDS SUMMARY | 2025-01-26 13:35 | XMS_ITS | Encounter Summary ---
Author Organization [facility] Address [address] [place] [address] Care Team Providers Care Oil Burner Repairer Name Role Phone Homero Aranda MD Primary Care Provider [phone] Homer, Pcp Primary Care Provider Silvia Ross MD Primary Care Provider Tone Barber MD Primary Care Provider Unavailnathan e Encounter Details Date Type Department Care Team Description 09/30/2016 Release of Information Medical Records [address] [place] [id number] Abstract, Provider Social History Tobacco Use Types [...] on filedocumented in this encounter Care Teams Oil Burner Repairer Relationship Specialty Start Date End Date Homero Aranda MD [address] [place] [address] PCP - General Internal Medicine 07/10/15 03/13/17 Mark Coronel [address] [place] [address] PCP - General Internal Medicine 03/14/17 05/18/17 Silvia Rodriguez MD [address] [place] [address] PCP - General 05/19/17 03/03/22 Tone Cool MD [address] [place] [address] PCP - General Internal Medicine 03/04/22 documented as of this encounter
--- OUTSIDE RECORDS SUMMARY | 2025-01-26 13:35 | XMS_ITS | Encounter Summary ---
Author Organization [facility] Address [address] [place] [address] Care Team Providers Care Automotive Service Technician Name Role Phone Silvia Rodriguez MD Primary Care Provider Tone Barber MD Primary Care Provider Unavailnathan e Encounter Details Date Type Department Care Team Description 05/18/2019 Hospital Medical Records [address] [place] [phone] [place] [address] Social History Tobacco Use Types Packs/Day Years [...] on filedocumented in this encounter Care Teams Automotive Service Technician Relationship Specialty Start Date End Date Silvia Rodriguez MD PCP - General 05/19/17 03/03/22 Tone Cool MD PCP - General Internal Medicine 03/04/22 documented as of this encounter
--- OUTSIDE RECORDS SUMMARY | 2025-01-26 13:35 | XMS_ITS | Encounter Summary ---
Author Organization [facility] Address [address] [place] [address] Care Team Providers Care Acid Mixer Name Role Phone Homero Aranda MD Primary Care Provider [phone] Homer, Pcp Primary Care Provider Silvia Ross MD Primary Care Provider Tone Barber MD Primary Care Provider Unavailnathan e Encounter Details Date Type Department Care Team Description 07/17/2016 Release of Information Medical Records [address] [place] [address] Abstract, Provider Social History Tobacco Use Types [...] on filedocumented in this encounter Care Teams Acid Mixer Relationship Specialty Start Date End Date Homero Aranda MD [address] [place] [address] PCP - General Internal Medicine 07/10/15 03/13/17 Mark Coronel [address] [place] [address] PCP - General Internal Medicine 03/14/17 05/18/17 Silvia Rodriguez MD [address] [place] [address] PCP - General 05/19/17 03/03/22 Tone Cool MD [address] [place] [address] PCP - General Internal Medicine 03/04/22 documented as of this encounter
--- OUTSIDE RECORDS SUMMARY | 2025-01-26 13:35 | XMS_ITS | Encounter Summary ---
Author Organization [facility] Address [address] [place] [address] Care Team Providers Care Boom Worker Name Role Phone Homero Aranda MD Primary Care Provider [phone] Homer, Pcp Primary Care Provider Unavailnathan e Silvia Rodriguez MD Primary Care Provider Tone Barber MD Primary Care Provider Unavailabl e Encounter Details Date Type Department Care Team Description 08/06/2016 Federal Aid Coordinator Report Medical Records [address] [place] [address] Clay Jacinto MD Social History Tobacco Use Types Packs/Day [...] on filedocumented in this encounter Care Teams Boom Worker Relationship Specialty Start Date End Date Homero Aranda MD [address] [place] [address] PCP - General Internal Medicine 07/10/15 03/13/17 Mark Coronel [address] [place] [address] PCP - General Internal Medicine 03/14/17 05/18/17 Silvia Rodriguez MD [address] [place] [address] PCP - General 05/19/17 03/03/22 Tone Cool MD [address] [place] [address] PCP - General Internal Medicine 03/04/22 documented as of this encounter
--- OUTSIDE RECORDS SUMMARY | 2025-01-26 13:35 | XMS_ITS | Encounter Summary ---
Author Organization [facility] Address [address] [place] [address] Care Team Providers Care Mail Inserter Name Role Phone Silvia Rodriguez MD Primary Care Provider Tone Barber MD Primary Care Provider Unavailabl e Reason for Visit * Reason Onset Date Comments APPOINTMENT 02/09/2019 Encounter Details Date Type Department Care Team Description 02/09/2019 Telephone Gastroenterology - [address] [place] [phone] Hailey Vo MD APPOINTMENT Social History Tobacco Use Types Packs/Day Years Used Date Smoking Tobacco: Light Smoker Cigarettes 0.1 10 Started: 89; Last attempted to quit: 09/08/2013 Smokeless Tobacco: Never Comments:occ smoker. Alcohol Use Standard Drinks/Week Comments No 0 (1 standard drink = 0.6 oz pur e alcohol) Sex Assigned at Date Recorded Not on file Job Start Date Occupation Industry Not on file Not on file Not on file documented as of this encounter Miscellaneous Notes * Telephone Encounter - Amanda Crane - 02/09/2019 9:36 AM EDT Pt is calling to be scheduled with Dr. Vo for colonoscopy. documented in this encounter Plan of Treatment Not on file documented as of this encounter Visit Diagnoses Not on filedocumented in this encounter Care Teams Mail Inserter Relationship Specialty Start Date End Date Silvia Rodriguez MD PCP - General 05/19/17 03/03/22 Tone Cool MD PCP - General Internal Medicine 03/04/22 documented as of this encounter
--- OUTSIDE RECORDS SUMMARY | 2025-01-26 13:35 | XMS_ITS | Encounter Summary ---
Author Organization [employer] Address [address] [facility] 7 [place] [address] Care Team Providers Care In Flight Refueling Operator Name Role Phone Name, Tone SEPULVEDA Primary Care Provider [phone] Reason for Visit * Reason Comments Med Refill Encounter Details Date Type Department Care Team ([facility] st Contact Info) Description 03/26/2023 Refill [facility] [address] [place], [place] [phone] Name, MD Tone [address] [place] [address] Social History Tobacco Use Types Packs/Day Years [...] Author Feeling nervous, anxious, or on edge 2 03/09 2:40 PM EDT Tanya Ellison RN Not being able to stop or co ntrol worrying 1 03/28/2023 2:40 PM EDT Tanya Ellison RN Worrying too much about diff erent things 3 03/28/2023 2:40 PM EDT Tanya Ellison RN Trouble relaxing 3 03/28/2023 2:40 PM EDT Tanya Pleitez ae, RN Being so restless that it is hard to sit still 1 03/28/2023 2:40 PM EDT Tanya Ellison RN Becoming easily annoyed or irritable 3 03/09 2:40 PM EDT Tanya Ellison RN Feeling afraid as if somethi ng awful might happen 1 03/28/2023 2:40 PM EDT Tanya Ellison RN ESTHER-7 Total Score 14 03/28/2023 2:40 PM EDT Tanya Ellison RN documented as of this encounter Plan of Treatment Upcoming Encounters Date Type Department Care Team (Late st Contact Info) Description 02/02/2025 2:00 PM EDT Office Visit [facility] [address] [place] [address] Danny Coleman DDS [address] [place] [address] 04/19/2025 2:45 PM EDT Office Visit [facility] [address] [place] [address] Name, MD Tone [address] [place] [address] documented as of this encounter Visit Diagnoses Not on filedocumented in this encounter Additional Health Concerns Assessment Noted Time PHQ-9 Depression Total Score: 0 12/26/19 23 1:52 PM EDT documented as of this encounter Care Teams In Flight Refueling Operator Relationship Specialty Start Date End Date Name, MD Tone [address] [place] [address] PCP - General Family Medicine 08/17/19 documented as of this encounter
--- OUTSIDE RECORDS SUMMARY | 2025-01-26 13:35 | XMS_ITS | Encounter Summary ---
Author Organization [employer] [facility] Address [address] [place] [address] 7 [place] [address] Care Team Providers Care Computer Mechanic Name Role Phone Name, Tone SEPULVEDA Primary Care Provider [phone] Reason for Visit * Reason Comments Med Refill Encounter Details Date Type Department Care Team (Late st Contact Info) Description 03/22/[address] [facility] [address] [place] [phone] Name, MD Tone [address] [place] [address] Wheezing Social History Tobacco Use Types Packs/Day [...] 2:00 PM EDT Office Visit [facility] [address] [place] [address] Danny Coleman DDS [address] [place], [place] [phone] 04/19/2025 2:45 PM EDT Office Visit [facility] [address] [place] [address] Name, MD Tone [address] [place] [address] documented as of this encounter Visit Diagnoses Diagnosis Wheezing documented in this encounter Additional Health Concerns Assessment Noted Time PHQ-9 Depression Total Score: 0 12/26/19 23 1:52 PM EDT documented as of this encounter Care Teams Computer Mechanic Relationship Specialty Start Date End Date Name, [place] [address] PCP - General Family Medicine 08/17/19 documented as of this encounter
--- OUTSIDE RECORDS SUMMARY | 2025-01-26 13:35 | XMS_ITS | Encounter Summary ---
Author Organization [facility] Address [address] [place] [address] Care Team Providers Care Icu Registered Nurse Name Role Phone Homero Aranda MD Primary Care Provider [phone] Homer, Pcp Primary Care Provider Unavailabl e Silvia Rodriguez MD Primary Care Provider Isi howe NameTone MD Primary Care Provider Unavailabl e Encounter Details Date Type Department Care Team Description 08/09/2015 Orders Only Adult Medicine [address] [address] Sarah Griffin PA-C UTI (lower urinary tract infection) (Primary Dx); Lumbar disc herniation Social History Tobacco Use Types Packs/Day Years [...] as of this encounter Visit Diagnoses Diagnosis UTI (lower urinary tract infection)- Primary Urinary tract infection, site not specified Lumbar disc herniation Displacement of lumbar intervertebral disc without myelopathy documented in this encounter Care Teams Icu Registered Nurse Relationship Specialty Start Date End Date Homero Aranda MD [address] [place] [address] PCP - General Internal Medicine 07/10/15 03/13/17 [facility], Pcp [address] [place] [address] PCP - General Internal Medicine 03/14/17 05/18/17 Fredy-Silvia Powers MD [address] [place] [address] PCP - General 05/19/17 03/03/22 Name, MD Tone [address] [place] [address] PCP - General Internal Medicine 03/04/22 documented as of this encounter
--- OUTSIDE RECORDS SUMMARY | 2025-01-26 13:35 | XMS_ITS | Encounter Summary ---
Author Organization [facility] Address [address] [place] [address] 7 [place] [address] Care Team Providers Care Guest Service Team Leader Name Role Phone Name, Tone SEPULVEDA Primary Care Provider [phone] Reason for Visit * Reason Comments Med Refill Encounter Details Date Type Department Care Team (Late st Contact Info) Description 03/24/2023 Refill [facility] [address] [place] [address] [phone] Name, MD Tone [address] [place] [address] Social History Tobacco Use Types Packs/Day Years [...] Description 02/02/2025 2:00 PM EDT Office Visit [facility] [address] [place] [address] Danny Coleman DDS [address] [place], [place] [phone] 04/19/2025 2:45 PM EDT Office Visit [facility] [address] [place] [address] Name, MD Tone [address] [place] [address] documented as of this encounter Visit Diagnoses Not on filedocumented in this encounter Additional Health Concerns Assessment Noted Time PHQ-9 Depression Total Score: 0 12/26/19 23 1:52 PM EDT documented as of this encounter Care Teams Guest Service Team Leader Relationship Specialty Start Date End Date Name, [place] [address] PCP - General Family Medicine 08/17/19 documented as of this encounter
--- OUTSIDE RECORDS SUMMARY | 2025-01-26 13:35 | XMS_ITS | Encounter Summary ---
Author Organization [facility] Address [address] [place] [address] Care Team Providers Care Asian Art Curator Name Role Phone Silvia Rodriguez MD Primary Care Provider Isi howe NameTone MD Primary Care Provider Unavailabl e Reason for Visit * Reason Onset Date Comments Testing 08/21/2018 Encounter Details Date Type Department Care Team Description 08/21/2018 Telephone Radiology - [address] [address] Chetan Guzmán PA-C Testing Social History Tobacco Use Types Packs/Day Years Used Date Smoking Tobacco: Light Smoker Cigarettes 0.1 10 Started: 976; Last attempted to quit: 09/08/2013 Smokeless Tobacco: Never Comments:few times a day Alcohol Use Standard Drinks/Week Comments No 0 (1 standard drink = 0.6 oz pur e alcohol) Sex Assigned at Date Recorded Not on file Job Start Date Occupation Industry Not on file Not on file Not on file documented as of this encounter Miscellaneous Notes * Telephone Encounter - Radhika Craig - 08/21/2018 3:49 PM EST Annie Estes has no showed and cancelled and has not responded to the telephone calls that were made as well as the letter that was sent to schedule a CT Scan; therefore we are removing the test from our Scheduled Orders Report. Please note that this test must be reordered if required in the future. documented in this encounter Plan of Treatment Not on file documented as of this encounter Visit Diagnoses Not on filedocumented in this encounter Care Teams Asian Art Curator Relationship Specialty Start Date End Date Fredy-Silvia Powers MD PCP - General 05/19/17 03/03/22 Silvina, MD Tone PCP - General Internal Medicine 03/04/22 documented as of this encounter
--- OUTSIDE RECORDS SUMMARY | 2025-01-26 13:35 | XMS_ITS | Encounter Summary ---
Author Organization [employer] Address [address] [facility] 7t [place] [address] Care Team Providers Care Copy Messenger Name Role Phone Name, Tone SEPULVEDA Primary Care Provider [phone] Reason for Visit * Reason Onset Date Comments Med refill 05/19/2023 Encounter Details Date Type Department Care Team ([facility] st Contact Info) Description 05/19/2023 Telephone [facility] [address] [place], [place] [phone] Name, MD Tone [address] [place] [address] Med refill Social History Tobacco Use Types Packs/Day Years [...] encounter Miscellaneous Notes * Telephone Encounter - Vanessa Vivas LPN - 05/21/2023 4:22 PM EDT Rosalinda Mayer RN from [facility] called to report patient self referral for AFC, reports that she has a letter that states she needs 24/7 care ? Requested a copy of letter and we will review with PCP, then let them know to do eval. if needed. * Telephone Encounter - Larisajamiereubenblanca ConnerDaughertyjaiden Cummings - 05/19/2023 3:57 PM EDT Tc from pt requesting med refill on cyclobenzaprine (Flexeril) 10 MG tablet And her Zolfran 4 mg tablet Please sent to [facility] - [place], [place] - [address] [place] [address] documented in this encounter Plan of Treatment Upcoming Encounters Date Type Department Care Team (Late st Contact Info) Description 02/02/2025 2:00 PM EDT Office Visit [facility] [address] [place] [address] Danny Coleman DDS [address] [place] [address] 04/19/2025 2:45 PM EDT Office Visit [facility] [address] [place] [address] Name, MD Tone [address] [place] [address] documented as of this encounter Visit Diagnoses Diagnosis Nausea Nausea alone documented in this encounter Additional Health Concerns Assessment Noted Time PHQ-9 Depression Total Score: 0 12/26/19 23 1:52 PM EDT documented as of this encounter Care Teams Copy Messenger Relationship Specialty Start Date End Date Name, MD Tone [address] [place] [address] PCP - General Family Medicine 08/17/19 documented as of this encounter
--- OUTSIDE RECORDS SUMMARY | 2025-01-26 13:35 | XMS_ITS | Encounter Summary ---
Author Organization [facility] Address [address] [place] [address] Care Team Providers Care Brick Veneer Maker Name Role Phone Homero Aranda MD Primary Care Provider [phone] Homer, Pcp Primary Care Provider Unavailabl e Silvia Rodriguez MD Primary Care Provider Isi howe NameTone MD Primary Care Provider Unavailabl e Encounter Details Date Type Department Care Team Description 09/11/2015 Orders Only Lab - [address] [address] Homero Aranda MD [address] [place] [address] Social History Tobacco Use Types Packs/Day Years [...] on filedocumented in this encounter Care Teams Brick Veneer Maker Relationship Specialty Start Date End Date Homero Aranda MD [address] [place] [address] PCP - General Internal Medicine 07/10/15 03/13/17 [facility], Pcp [address] [place] [address] PCP - General Internal Medicine 03/14/17 05/18/17 Fredy-Silvia Powers MD [address] [place] [address] PCP - General 05/19/17 03/03/22 Name, MD Tone [address] [place] [address] PCP - General Internal Medicine 03/04/22 documented as of this encounter
--- OUTSIDE RECORDS SUMMARY | 2025-01-26 13:35 | XMS_ITS | Encounter Summary ---
Author Organization [facility] Address [address] [place] [address] Care Team Providers Care Manager Group Home Name Role Phone Homero Aranda MD Primary Care Provider [phone] Homer, Mark Primary Care Provider Unavailnathan e Silvia Rodriguez MD Primary Care Provider Tone Barber MD Primary Care Provider Unavailabl e Encounter Details Date Type Department Care Team Description 08/07/2015 Lawn Service Manager Report Medical Records [address] [place] [address] Wanda Randall MD Social History Tobacco Use Types Packs/Day [...] on filedocumented in this encounter Care Teams Manager Group Home Relationship Specialty Start Date End Date Homero Aranda MD [address] [place] [address] PCP - General Internal Medicine 07/10/15 03/13/17 Mark Coronel [address] [place] [address] PCP - General Internal Medicine 03/14/17 05/18/17 Silvia Rodriguez MD [address] [place] [address] PCP - General 05/19/17 03/03/22 Tone Cool MD [address] [place] [address] PCP - General Internal Medicine 03/04/22 documented as of this encounter
--- OUTSIDE RECORDS SUMMARY | 2025-01-26 13:35 | XMS_ITS | Encounter Summary ---
Author Organization [employer] Address 75 [facility] 7t [place] [address] Care Team Providers Care Pizza Delivery Driver Name Role Phone Name, Tone SEPULVEDA Primary Care Provider [phone] Reason for Visit * Reason Comments Med Change Request Encounter Details Date Type Department Care Team ([facility] st Contact Info) Description 06/09/2024 Refill [facility] [address] [place] [address] Name, MD Tone [address] [place] [address] Social History Tobacco Use Types Packs/Day Years [...] 2:00 PM EDT Office Visit [facility] [address] [place] [address] Danny Coleman DDS [address] [place] [address] 04/19/2025 2:45 PM EDT Office Visit [facility] [address] [place] [address] NameTone MD [address] [place] [address] documented as of this encounter Visit Diagnoses Not on filedocumented in this encounter Additional Health Concerns Assessment Noted Time PHQ-9 Depression Total Score: 11 024 2:10 PM EDT documented as of this encounter Care Teams Pizza Delivery Driver Relationship Specialty Start Date End Date NameTone MD [address] [place] [address] PCP - General Family Medicine 08/17/19 documented as of this encounter
--- OUTSIDE RECORDS SUMMARY | 2025-01-26 13:35 | XMS_ITS | Encounter Summary ---
Author Organization [facility] Address [address] [place] [address] Care Team Providers Care Veterinary Anatomist Name Role Phone Homero Aranda MD Primary Care Provider [phone] Homer, Pcp Primary Care Provider Unavailabl e Silvia Rodriguez MD Primary Care Provider Isi howe NameTone MD Primary Care Provider Unavailabl e Encounter Details Date Type Department Care Team Description 09/11/2015 Orders Only Lab - [address] [address] Homero Aranda MD [address] [place] [address] Social History Tobacco Use Types Packs/Day Years [...] on filedocumented in this encounter Care Teams Veterinary Anatomist Relationship Specialty Start Date End Date Homero Aranda MD [address] [place] [address] PCP - General Internal Medicine 07/10/15 03/13/17 [facility], Pcp [address] [place] [address] PCP - General Internal Medicine 03/14/17 05/18/17 Fredy-Silvia Powers MD [address] [place] [address] PCP - General 05/19/17 03/03/22 Name, MD Tone [address] [place] [address] PCP - General Internal Medicine 03/04/22 documented as of this encounter
--- OUTSIDE RECORDS SUMMARY | 2025-01-26 13:35 | XMS_ITS | Encounter Summary ---
Author Organization [facility] Address [address] [place] [address] Care Team Providers Care Dentist Name Role Phone Homero Aranda MD Primary Care Provider [phone] Community, Pcp Primary Care Provider Unavailnathan e Silvia Rodriguez MD Primary Care Provider Isi howe NameTone MD Primary Care Provider Unavailabl e Encounter Details Date Type Department Care Team Description 07/30/2016 [facility] Medical Records [address] [place] [address] Samuel Decker MD Social History Tobacco Use Types Packs/Day [...] on filedocumented in this encounter Care Teams Dentist Relationship Specialty Start Date End Date Homero Aranda MD [address] [place] [address] PCP - General Internal Medicine 07/10/15 03/13/17 [facility], Pcp [address] [place] [address] PCP - General Internal Medicine 03/14/17 05/18/17 Silvia Rodriguez MD [address] [place] [address] PCP - General 05/19/17 03/03/22 Name, MD Tone [address] [place] [address] PCP - General Internal Medicine 03/04/22 documented as of this encounter
--- OUTSIDE RECORDS SUMMARY | 2025-01-26 13:35 | XMS_ITS | Encounter Summary ---
Author Organization [facility] Address [address] [place] [address] Care Team Providers Care Picture Enlarger Name Role Phone Silvia Rodriguez MD Primary Care Provider Isi howe NameTone MD Primary Care Provider Unavailabl e Encounter Details Date Type Department Care Team Description 08/09/2019 Orders Only Adult Medicine [address] [address] Sriram Ji MD Multinodular goiter (Primary Dx) Social History Tobacco Use Types Packs/Day Years [...] on file documented as of this encounter Results * FINE NEEDLE ASPIRATION BX W/US GUIDED EACH ADDITIONAL (08/31/2019) Sriram Ji MD ULTRASOUND documented in this encounter Visit Diagnoses Diagnosis Multinodular goiter- Primary Nontoxic multinodular goiter documented in this encounter Care Teams Picture Enlarger Relationship Specialty Start Date End Date Silvia Rodriguez MD PCP - General 05/19/17 03/03/22 Tone Cool MD PCP - General Internal Medicine 03/04/22 documented as of this encounter
--- OUTSIDE RECORDS SUMMARY | 2025-01-26 13:35 | XMS_ITS | Encounter Summary ---
Author Organization [facility] Address [address] [place] [address] Care Team Providers Care Head Concierge Name Role Phone Homero Aranda MD Primary Care Provider [phone] [facility], Pcp Primary Care Provider Unavailabl e Silvia Rodriguez MD Primary Care Provider Isi howe Name, Tone SEPULVEDA Primary Care Provider Unavailabl e Reason for Visit * Reason Onset Date Comments Faxed Order 06/27/2016 Encounter Details Date Type Department Care Team Description 06/27/2016 Telephone Adult Medicine B - [address] [address] Homero Aranda MD [address] [place] [address] Faxed Order Social History Tobacco Use Types Packs/Day Years [...] encounter Miscellaneous Notes * Telephone Encounter - Ezio Marshall - 06/27/2016 10:52 AM EDT Received faxed order [facility]. Please review, sign, date, and fax back, Given to [facility] documented in this encounter Plan of Treatment Not on file documented as of this encounter Visit Diagnoses Not on filedocumented in this encounter Care Teams Head Concierge Relationship Specialty Start Date End Date Homero Aranda MD [address] [place] [address] PCP - General Internal Medicine 07/10/15 03/13/17 [facility], [address] [address] PCP - General Internal Medicine 03/14/17 05/18/17 Silvia Rodriguez MD [address] [place] [address] PCP - General 05/19/17 03/03/22 Name, MD Tone [address] [place] [address] PCP - General Internal Medicine 03/04/22 documented as of this encounter
--- OUTSIDE RECORDS SUMMARY | 2025-01-26 13:35 | XMS_ITS | Encounter Summary ---
Author Organization [employer] [facility] Address [address] [place] [address] 7 [place] [address] Care Team Providers Care Horticultural Services Supervisor Name Role Phone Name, Tone SEPULVEDA Primary Care Provider [phone] Reason for Visit * Reason Comments Med Refill Encounter Details Date Type Department Care Team (Late st Contact Info) Description 03/17/2023 Refill [facility] [address] [place] [address] [phone] Name, MD Tone [address] [place] [address] Social History Tobacco Use Types Packs/Day Years [...] 02/02/2025 2:00 PM EDT Office Visit [facility] [address] [place] [address] Danny Coleman DDS [address] [place], [place] [phone] 04/19/2025 2:45 PM EDT Office Visit [facility] [address] [place] [address] Name, MD Tone [address] [place] [address] documented as of this encounter Visit Diagnoses Not on filedocumented in this encounter Additional Health Concerns Assessment Noted Time PHQ-9 Depression Total Score: 0 12/26/19 23 1:52 PM EDT documented as of this encounter Care Teams Horticultural Services Supervisor Relationship Specialty Start Date End Date Name, [place] [address] PCP - General Family Medicine 08/17/19 documented as of this encounter
--- OUTSIDE RECORDS SUMMARY | 2025-01-26 13:35 | XMS_ITS | Encounter Summary ---
Author Organization [facility] Address [address] [place] [address] Care Team Providers Care Heat Treat Technician Name Role Phone Homero Aranda MD Primary Care Provider [phone] [facility], Pcp Primary Care Provider Unavailabl e Silvia Rodriguez MD Primary Care Provider Isi howe Name, Tone SEPULVEDA Primary Care Provider Unavailabl e Reason for Visit * Reason Onset Date Comments Hemorrhoids 07/23/2016 Encounter Details Date Type Department Care Team Description 07/23/2016 Telephone Adult Medicine [address] [address] Homero Aranda MD [address] [place] [address] Hemorrhoids Social History Tobacco Use Types Packs/Day Years [...] encounter Miscellaneous Notes * Telephone Encounter - Homero Kuhn MD - 07/29/2016 11:35 AM EST Ok. * Telephone Encounter - Ronna Lucero M.A. - 07/29/2016 9:[address] Kuhn can you order? Dr Carrion not in till tomorrow. * Telephone Encounter - Swati Giles L.P.N. - 07/25/2016 9:18 AM EST I called pt because we hadn't heard back from her yet. She did not find out the name of the medication she used for hemorrhoids. She insists she's had it filled at [facility]. I called and spoke with the pharmacist. He looked back through 2012 and did not find any hemorrhoid cream filled for this pt. She saw Dr. Carrion in GI on 07/19/16. There is documentation that her colonoscopy showed hemorrhoids. Pt requesting medication because they are bothering her and she has some occasional bleeding with wiping after bowel movements. Message to GI for review. Would you consider prescribing something for her? * Telephone Encounter - Leah Richard L.P.N. - 07/23/2016 4:19 PM EST Pt states she has been constipated and her hemorrhoids are bothering her now .She refuses appt ,wants a refill on the cream she has used from previous doctor.Pt advised we need to know the name of what she is asking for and I will see if doctor will refill it . She is going to call back with the information. * Telephone Encounter - Kim Katie - 07/23/2016 4:10 PM EST Symptoms patient is presenting: hemmorids If pain or injury related was it due to an accident at work or from a motor vehicle accident? NO If yes, gather 3rd democrat insurance information Date of accident/Injury: na How long has patient had these symptoms?: 1 week PCP: Homero Aranda Pay[place]: [place] / Plan: MEDICAID PCC / Product Type: MEDICAID [id number] documented in this encounter Plan of Treatment Not on file documented as of this encounter Visit Diagnoses Diagnosis External hemorrhoid, bleeding- Primary External hemorrhoids with other complication documented in this encounter Care Teams Heat Treat Technician Relationship Specialty Start Date End Date Homero Aranda MD [address] [place] [address] PCP - General Internal Medicine 07/10/15 03/13/17 [facility], Pcp [address] [place] [address] PCP - General Internal Medicine 03/14/17 05/18/17 Fredy-Silvia Powers MD [address] [place] [address] PCP - General 05/19/17 03/03/22 Name, MD Tone [address] [place] [address] PCP - General Internal Medicine 03/04/22 documented as of this encounter
--- OUTSIDE RECORDS SUMMARY | 2025-01-26 13:35 | XMS_ITS | Encounter Summary ---
Author Organization [employer] Address [address] [facility] 7t [place] [address] Care Team Providers Care County Judge Name Role Phone Name, Tone SEPULVEDA Primary Care Provider [phone] Reason for Visit * Reason Comments Med Refill Encounter Details Date Type Department Care Team ([facility] st Contact Info) Description 07/21/2024 Refill [facility] [address] [place] [address] Name, MD Tone [address] [place], [place] [phone] Chronic back pain, unspecified back location, unspecified [...] Description 02/02/2025 2:00 PM EDT Office Visit [facility] [address] [place] [address] Danny Coleman DDS [address] [place] [address] 04/19/2025 2:45 PM EDT Office Visit [facility] [address] [place] [address] Name, MD Tone [address] [place] [address] documented as of this encounter Visit Diagnoses Diagnosis Chronic back pain, unspecified back location, unspecified back pain laterality documented in this encounter Additional Health Concerns Assessment Noted Time PHQ-9 Depression Total Score: 11 024 2:10 PM EDT documented as of this encounter Care Teams County Judge Relationship Specialty Start Date End Date NameTone MD [address] [place] [address] PCP - General Family Medicine 08/17/19 documented as of this encounter
--- OUTSIDE RECORDS SUMMARY | 2025-01-26 13:35 | XMS_ITS | Encounter Summary ---
Author Organization [facility] Address [address] [place] [address] Care Team Providers Care Social Work Instructor Name Role Phone Community, Pcp Primary Care Provider Silvia Ross MD Primary Care Provider Tone Barber MD Primary Care Provider Chino bateman Encounter Details Date Type Department Care Team Description 03/14/2017 Christian Counselor Report Medical Records [address] [place] [address] Abstract, Provider Social History Tobacco Use Types [...] on filedocumented in this encounter Care Teams Social Work Instructor Relationship Specialty Start Date End Date Community, Pcp PCP - General Internal Medicine 03/14/17 05/18/17 Silvia Rodriguez MD PCP - General 05/19/17 03/03/22 Tone Cool MD PCP - General Internal Medicine 03/04/22 documented as of this encounter
--- OUTSIDE RECORDS SUMMARY | 2025-01-26 13:35 | XMS_ITS | Encounter Summary ---
Author Organization [facility] Address [address] [place] [address] Care Team Providers Care Supply Tech Name Role Phone Homero Aranda MD Primary Care Provider [phone] Homer, Pcp Primary Care Provider Chino e Silvia Rodriguez MD Primary Care Provider Tone Barber MD Primary Care Provider Unavailnathan e Encounter Details Date Type Department Care Team Description 10/10/2016 [facility] Medical Records [address] [place] [address] Abstract, Provider Social History Tobacco Use Types [...] on filedocumented in this encounter Care Teams Supply Tech Relationship Specialty Start Date End Date Homero Aranda MD [address] [place] [address] PCP - General Internal Medicine 07/10/15 03/13/17 Mark Coronel [address] [place] [address] PCP - General Internal Medicine 03/14/17 05/18/17 Silvia Rodriguez MD [address] [place] [address] PCP - General 05/19/17 03/03/22 Tone Cool MD [address] [place] [address] PCP - General Internal Medicine 03/04/22 documented as of this encounter
--- OUTSIDE RECORDS SUMMARY | 2025-01-26 13:35 | XMS_ITS | Encounter Summary ---
Author Organization [employer] Address 75 [facility] 7t [place] [address] Care Team Providers Care Workers' Compensation Mediator Name Role Phone Name, Tone SEPULVEDA Primary Care Provider [phone] Reason for Visit * Reason Comments Med Refill Encounter Details Date Type Department Care Team ([facility] st Contact Info) Description 06/23/2024 Refill [facility] [address] [place] [address] Name, MD Tone [address] [place], [place] [phone] Anxiety disorder, unspecified Social History Tobacco Use [...] Description 02/02/2025 2:00 PM EDT Office Visit [facility] [address] [place] [address] Danny Coleman DDS [address] [place] [address] 04/19/2025 2:45 PM EDT Office Visit [facility] [address] [place] [address] NameTone MD [address] [place] [address] documented as of this encounter Visit Diagnoses Diagnosis Anxiety disorder, unspecified documented in this encounter Additional Health Concerns Assessment Noted Time PHQ-9 Depression Total Score: 11 024 2:10 PM EDT documented as of this encounter Care Teams Workers' Compensation Mediator Relationship Specialty Start Date End Date NameTone MD [address] [place] [address] PCP - General Family Medicine 08/17/19 documented as of this encounter
--- OUTSIDE RECORDS SUMMARY | 2025-01-26 13:35 | XMS_ITS | Encounter Summary ---
Author Organization [facility] Address [address] [place] [address] Care Team Providers Care Security Software Engineer Name Role Phone Homero Aranda MD Primary Care Provider [phone] Homer, Pcp Primary Care Provider Silvia Ross MD Primary Care Provider Tone Barber MD Primary Care Provider Unavailnathan e Encounter Details Date Type Department Care Team Description 07/04/2016 Release of Information Medical Records [address] [place] [phone] Abstract, Provider Social History Tobacco Use Types [...] on filedocumented in this encounter Care Teams Security Software Engineer Relationship Specialty Start Date End Date Homero Aranda MD [address] [place] [address] PCP - General Internal Medicine 07/10/15 03/13/17 Mark Coronel [address] [place] [address] PCP - General Internal Medicine 03/14/17 05/18/17 Silvia Rodriguez MD [address] [place] [address] PCP - General 05/19/17 03/03/22 Tone Cool MD [address] [place] [address] PCP - General Internal Medicine 03/04/22 documented as of this encounter
--- OUTSIDE RECORDS SUMMARY | 2025-01-26 13:35 | XMS_ITS | Encounter Summary ---
Author Organization [employer] Address 75 [facility] 7t [place] [address] Care Team Providers Care Equipment Operator Intermodal Yard Name Role Phone Name, Tone SEPULVEDA Primary Care Provider [phone] Reason for Visit * Reason Onset Date Comments Hospital Follow-up 05/28/2024 Encounter Details Date Type Department Care Team ([facility] st Contact Info) Description 05/28/2024 Telephone [facility] [address] [place] [address] Name, MD Tone [address] [place] [address] Hospital Follow-up Social History Tobacco Use Types [...] encounter Miscellaneous Notes * Telephone Encounter - Sherri Cummings - 05/28/2024 3:52 PM EDT Tc from pt requesting HDF appt: Hospital: [facility] Date admitted: 05/18/24 Discharge Date: 05/28/24 Pressure Potassium low. documented in this encounter Plan of Treatment Upcoming Encounters Date Type Department Care Team (Late st Contact Info) Description 02/02/2025 2:00 PM EDT Office Visit [facility] [address] [place] [address] Danny Coleman DDS [address] [place] [address] 04/19/2025 2:45 PM EDT Office Visit [facility] [address] [place] [address] Name, MD Tone [address] [place] [address] documented as of this encounter Visit Diagnoses Not on filedocumented in this encounter Additional Health Concerns Assessment Noted Time PHQ-9 Depression Total Score: 11 024 2:10 PM EDT documented as of this encounter Care Teams Equipment Operator Intermodal Yard Relationship Specialty Start Date End Date Name, MD Tone [address] [place] [address] PCP - General Family Medicine 08/17/19 documented as of this encounter
--- OUTSIDE RECORDS SUMMARY | 2025-01-26 13:35 | XMS_ITS | Encounter Summary ---
Author Organization [facility] Address [address] [place] [address] Care Team Providers Care Investigation Officer Name Role Phone Silvia Rodriguez MD Primary Care Provider Tone Barber MD Primary Care Provider Unavailnathan e Encounter Details Date Type Department Care Team Description 05/29/2018 Clock Smith Report Medical Records [address] [place] [address] Ron Johnson Social History Tobacco Use Types Packs/Day Years [...] on filedocumented in this encounter Care Teams Investigation Officer Relationship Specialty Start Date End Date Silvia Rodriguez MD PCP - General 05/19/17 03/03/22 Tone Cool MD PCP - General Internal Medicine 03/04/22 documented as of this encounter
--- OUTSIDE RECORDS SUMMARY | 2025-01-26 13:35 | XMS_ITS | Encounter Summary ---
Author Organization [facility] Address [address] [place] [address] Care Team Providers Care Radio Talk Show Host Name Role Phone Silvia Rodriguez MD Primary Care Provider Tone Barber MD Primary Care Provider Unavailnathan e Encounter Details Date Type Department Care Team Description 10/12/2018 Telephone Internal Medicine [address], [address] [place] [address] Silvia Rodriguez MD Social History Tobacco Use Types Packs/Day [...] on filedocumented in this encounter Care Teams Radio Talk Show Host Relationship Specialty Start Date End Date Silvia Rodriguez MD PCP - General 05/19/17 03/03/22 Tone Cool MD PCP - General Internal Medicine 03/04/22 documented as of this encounter
--- OUTSIDE RECORDS SUMMARY | 2025-01-26 13:35 | XMS_ITS | Encounter Summary ---
Author Organization [employer] Address [address] [facility] 7t [place] [address] Care Team Providers Care Fish Egg Packer Name Role Phone Name, Tone SEPULVEDA Primary Care Provider [phone] Reason for Visit * Reason Comments Med Refill Encounter Details Date Type Department Care Team ([facility] st Contact Info) Description 05/22/2023 Refill [facility] [address] [place], [place] [phone] Name, MD Tone [address] [place] [address] Nausea Social History Tobacco Use Types Packs/Day Years [...] Telephone Encounter - Vanessa Vivas LPN - 05/22/2023 2:28 PM EDT F/U call given by sherrell Malone w/patient regarding message left on for practice mgr. Patient reports she has a letter she needs 31/03 care, expl. to her that we would need her to provide us with a copy, she says she will have to find it ? Informed her that PCP is out of the office vac, unable to locate letter in chart right now. Patient will have someone look for it for her ? She also repor ts she will be having knee replacement, discussed rehab and will have services following surgery. She says she knows all this stuff. Patient has tele# to call Forms Dept once she finds the letter, and can bring in a copy for us. Pending. documented in this encounter Plan of Treatment Upcoming Encounters Date Type Department Care Team (Late st Contact Info) Description 02/02/2025 2:00 PM EDT Office Visit [facility] ADULT [facility] [address] [place] [address] Danny Coleman DDS [address] [place] [address] 04/19/2025 2:45 PM EDT Office Visit [facility] [address] [place] [address] Name, MD Tone [address] [place] [address] documented as of this encounter Visit Diagnoses Diagnosis Nausea Nausea alone documented in this encounter Additional Health Concerns Assessment Noted Time PHQ-9 Depression Total Score: 0 12/26/19 23 1:52 PM EDT documented as of this encounter Care Teams Fish Egg Packer Relationship Specialty Start Date End Date Name, MD Tone [address] [place] [address] PCP - General Family Medicine 08/17/19 documented as of this encounter
--- OUTSIDE RECORDS SUMMARY | 2025-01-26 13:35 | XMS_ITS | Encounter Summary ---
Author Organization [facility] Address [address] [place] [address] Care Team Providers Care Laundry Folder Name Role Phone Silvia Rodriguez MD Primary Care Provider Isi howe NameTone MD Primary Care Provider Unavailnathan e Encounter Details Date Type Department Care Team Description 03/05/2019 Orders Only Medical Records [address] [place] [address] Hailey Vo MD Social History Tobacco Use Types Packs/Day [...] Name Priority Date/Time Associated Diagnosis Comments OUTSIDE PATHOLOGY Routine 03/03/2019 documented in this encounter Results * OUTSIDE PATHOLOGY (03/03/2019) Hailey Vo MD OUTSIDE LAB documented in this encounter Visit Diagnoses Not on filedocumented in this encounter Care Teams Laundry Folder Relationship Specialty Start Date End Date Silvia Rodriguez MD PCP - General 05/19/17 03/03/22 Tone Cool MD PCP - General Internal Medicine 03/04/22 documented as of this encounter
--- OUTSIDE RECORDS SUMMARY | 2025-01-26 13:35 | XMS_ITS | Encounter Summary ---
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 Medical Records [address] [place] [address] Abstract, Provider Social History Tobacco Use Types [...] on filedocumented in this encounter Care Teams Lab Engineer Relationship Specialty Start Date End Date Homero Aranda MD [address] [place] [address] PCP - General Internal Medicine 07/10/15 03/13/17 Homer, Mark [address] [place] [address] PCP - General Internal Medicine 03/14/17 05/18/17 Silvia Rodriguez MD [address] [place] [address] PCP - General 05/19/17 03/03/22 Tone Cool MD [address] [place] [address] PCP - General Internal Medicine 03/04/22 documented as of this encounter
--- OUTSIDE RECORDS SUMMARY | 2025-01-26 13:35 | XMS_ITS | Encounter Summary ---
Author Organization [employer] Address [address] [facility] [address] 7t [place] [address] Care Team Providers Care Change Advisor Name Role Phone Name, Tone SEPULVEDA Primary Care Provider [phone] Reason for Visit * Reason Onset Date Comments Med Refill 06/23/2024 Patient walked i n requesting refill for clonazepam patient stated she is due for refill and needs a PA Encounter Details Date Type Department Care Team (Late st Contact Info) Description 06/23/2024 Refill [facility] MEDICINE [address] [place], [place] [phone] Name, MD Tone [address] [place], [place] [phone] Chronic back pain, unspecified back location, unspecified [...] encounter Miscellaneous Notes * Telephone Encounter - Nicolette Carolina - 06/23/2024 12:03 PM EDT Patient walked in requesting refill for clonazepam patient stated she is due for refill and needs aPA * Telephone Encounter - Viola Gamino LPN - 06/23/2024 11:02 AM EDT TUBING MILL OPERATOR 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 Next appointment 07/06/24. * Telephone Encounter - Vicky Hoskins - 06/23/2024 10:55 AM EDT TC from pt requesting medication refill. Medications needing refill : levothyroxine (Synthroid, Levoxyl) 150 MCG tablet To be sent to: [facility] - [place], [place] - [address] [facility] documented in this encounter Plan of Treatment Upcoming Encounters Date Type Department Care Team (Late st Contact Info) Description 02/02/2025 2:00 PM EDT Office Visit [facility] ADULT DENTAL [address] [place] [address] Danny Coleman DDS [address] [place] [address] 04/19/2025 2:45 PM EDT Office Visit [facility] MEDICINE [address] [place] [address] Name, MD Tone [address] [place] [address] documented as of this encounter Visit Diagnoses Diagnosis Chronic back pain, unspecified back location, unspecified back pain laterality documented in this encounter Additional Health Concerns Assessment Noted Time PHQ-9 Depression Total Score: 11 024 2:10 PM EDT documented as of this encounter Care Teams Change Advisor Relationship Specialty Start Date End Date Name, MD Tone [address] [place] [address] PCP - General Family Medicine 08/17/19 documented as of this encounter
--- OUTSIDE RECORDS SUMMARY | 2025-01-26 13:35 | XMS_ITS | Encounter Summary ---
Author Organization [facility] Address [address] [place] [address] Care Team Providers Care Gas Systems Worker Name Role Phone Silvia Rodriguez MD Primary Care Provider Isi howe NameTone MD Primary Care Provider Unavailabl e Reason for Referral * Non KENYETTA (Routine) - Closed Specialty Diagnoses / Procedures Referred By Contac t Referred To Contact General Surgery Diagnoses Multinodular goiter Procedures REFERRAL TO GENERAL SURGERY (IN NETWORK) Sriram Ji MD [address] [place] [address] Gen Surg/[place] [address] [phone] Referral ID Status Reason Start Date Expiration Date V isits Requested Visits Authorized COMMUNITY PCP TESTING EXT Closed 08/08/2019 08/07/2020 1 1 Encounter Details Date Type Department Care Team Description 08/08/2019 Orders Only Adult Medicine B - [address] [address] Sriram Ji MD Multinodular goiter (Primary Dx) [...] as of this encounter Visit Diagnoses Diagnosis Multinodular goiter- Primary Nontoxic multinodular goiter documented in this encounter Care Teams Gas Systems Worker Relationship Specialty Start Date End Date Fredy-Silvia Powers MD PCP - General 05/19/17 03/03/22 Name, MD Tone PCP - General Internal Medicine 03/04/22 documented as of this encounter
--- OUTSIDE RECORDS SUMMARY | 2025-01-26 13:35 | XMS_ITS | Encounter Summary ---
Author Organization [facility] Address [address] [place] [address] Care Team Providers Care Rn Progressive Care Unit Name Role Phone Silvia Rodriguez MD Primary Care Provider Tone Barber MD Primary Care Provider Unavailnathan e Encounter Details Date Type Department Care Team Description 06/01/2018 Orders Only Medical Records [address] [place] [address] Arnaud Phillips MD [address] [place] [address] Social History Tobacco Use Types Packs/Day Years [...] Name Priority Date/Time Associated Diagnosis Comments OUTSIDE LDCT LUNG SCAN Routine 05/29/2018 documented in this encounter Results * OUTSIDE LDCT LUNG SCAN (05/29/2018) Arnaud Phillips MD RADIOLOGY documented in this encounter Visit Diagnoses Not on filedocumented in this encounter Care Teams Rn Progressive Care Unit Relationship Specialty Start Date End Date Silvia Rodriguez MD PCP - General 05/19/17 03/03/22 Tone Cool MD PCP - General Internal Medicine 03/04/22 documented as of this encounter
--- OUTSIDE RECORDS SUMMARY | 2025-01-26 13:35 | XMS_ITS | Encounter Summary ---
Author Organization [facility] Address [address] [place] [address] Care Team Providers Care Design Transferrer Name Role Phone Silvia Rodriguez MD Primary Care Provider Isi howe NameTone MD Primary Care Provider Unavailabl e Reason for Visit * Reason Comments E-prescribe Rx Request Encounter Details Date Type Department Care Team Description 07/11/2019 Refill Pulmonology - [place] [address] [facility] [address] [place] [phone] Alfredo Solis MD 175 [facility] [place] [address] [place] [phone] E-prescribe Rx Request Social History Tobacco Use [...] on filedocumented in this encounter Care Teams Design Transferrer Relationship Specialty Start Date End Date Silvia Rodriguez MD PCP - General 05/19/17 03/03/22 Tone Cool MD PCP - General Internal Medicine 03/04/22 documented as of this encounter
--- OUTSIDE RECORDS SUMMARY | 2025-01-26 13:35 | XMS_ITS | Encounter Summary ---
Author Organization [employer] Address [address] [facility] [address] 7t [place] [address] Care Team Providers Care General Magistrate Name Role Phone Name, Tone SEPULVEDA Primary Care Provider [phone] Reason for Visit * Reason Comments Med Refill Encounter Details Date Type Department Care Team ([facility] st Contact Info) Description 06/26/2023 Refill [facility] MED & PEDS [address] [place], [place] [phone] [facility] [address] [place] [address] Anxiety disorder, unspecified Social History Tobacco Use [...] 2:00 PM EDT Office Visit [facility] ADULT DENTAL [address] [place] [address] Danny Coleman DDS [address] [place] [address] 04/19/2025 2:45 PM EDT Office Visit [facility] MEDICINE [address] [place] [address] NameTone MD [address] [place] [address] documented as of this encounter Visit Diagnoses Diagnosis Anxiety disorder, unspecified documented in this encounter Additional Health Concerns Assessment Noted Time PHQ-9 Depression Total Score: 0 12/26/19 23 1:52 PM EDT documented as of this encounter Care Teams General Magistrate Relationship Specialty Start Date End Date Tone Cool MD [address] [place] [address] PCP - General Family Medicine 08/17/19 documented as of this encounter
--- OUTSIDE RECORDS SUMMARY | 2025-01-26 13:35 | XMS_ITS | Encounter Summary ---
Author Organization [employer] Address [address] [facility] 7t [place] [address] Care Team Providers Care Resident Advisor Name Role Phone Name, Tone SEPULVEDA Primary Care Provider [phone] Reason for Visit * Reason Onset Date Comments Medication Question 05/11/2024 Encounter Details Date Type Department Care Team ([facility] st Contact Info) Description 05/11/2024 Telephone [facility] MEDICINE [address] [place] [address] Name, MD Tone [address] [place] [address] Medication Question Social History Tobacco Use Types [...] Telephone Encounter - Fernando Keller RN - 05/12/2024 10:38 AM EDT T/C to patient for below message, for recent request for free style lancets, No answer. LVM to callback on [phone]. * Telephone Encounter - Vicky Hoskins - 05/11/2024 10:26 AM EDT Tc from pt requesting free style lancets . Did not see on recent med list. documented in this encounter Plan of Treatment Upcoming Encounters Date Type Department Care Team (Late st Contact Info) Description 02/02/2025 2:00 PM EDT Office Visit [facility] ADULT DENTAL [address] [place] [address] Danny Coleman DDS [address] [place] [address] 04/19/2025 2:45 PM EDT Office Visit [facility] MEDICINE [address] [place] [address] Name, MD Tone [address] [place] [address] documented as of this encounter Visit Diagnoses Not on filedocumented in this encounter Additional Health Concerns Assessment Noted Time PHQ-9 Depression Total Score: 11 024 2:10 PM EDT documented as of this encounter Care Teams Resident Advisor Relationship Specialty Start Date End Date Name, MD Tone [address] [place] [address] PCP - General Family Medicine 08/17/19 documented as of this encounter
--- OUTSIDE RECORDS SUMMARY | 2025-01-26 13:35 | XMS_ITS | Encounter Summary ---
Author Organization [facility] Address [address] [place] [address] Care Team Providers Care Retail Account Manager Name Role Phone Homero Aranda MD Primary Care Provider [phone] [facility], Pcp Primary Care Provider Unavailabl e Silvia Rodriguez MD Primary Care Provider Isi howe NameTone MD Primary Care Provider Unavailabl e Encounter Details Date Type Department Care Team Description 03/12/2017 Telephone Adult Medicine [address] [address] Sriram Ji MD Social History Tobacco Use Types Packs/Day [...] goiter documented in this encounter Care Teams Retail Account Manager Relationship Specialty Start Date End Date Homero Aranda MD [address] [place] [address] PCP - General Internal Medicine 07/10/15 03/13/17 [facility], Pcp [address] [place] [address] PCP - General Internal Medicine 03/14/17 05/18/17 Silvia Rodriguez MD [address] [place] [address] PCP - General 05/19/17 03/03/22 Name, MD Tone [address] [place] [address] PCP - General Internal Medicine 03/04/22 documented as of this encounter
--- OUTSIDE RECORDS SUMMARY | 2025-01-26 13:35 | XMS_ITS | Encounter Summary ---
Author Organization [facility] Address [address] [place] [address] Care Team Providers Care Reservations Sales Agent Name Role Phone Community, Pcp Primary Care Provider Chino e Silvia Rodriguez MD Primary Care Provider Isi howe Name, Tone SEPULVEDA Primary Care Provider Unavailabl e Reason for Visit * Reason Onset Date Comments Provider Call Back 03/14/2017 Encounter Details Date Type Department Care Team Description 03/14/2017 Telephone Adult Medicine [address] [address] Homero Aranda MD [address] [place] [address] Provider Call Back Social History Tobacco Use [...] encounter Miscellaneous Notes * Telephone Encounter - Sriram Ji MD - 03/14/2017 4:49 PM EDT D/w pt, letter as well, rpt marjan in ~ 6 months * Telephone Encounter - Sriram Ji MD - 03/14/2017 4:37 PM EDT I called the patient today and left a message on the machine. Patient instructed to return my call.Re: thyroid bx. A letter has been sent as well * Telephone Encounter - Chapincito Greenfield - 03/14/2017 2:17 PM EDT Pt calling to speak to Dr Ji. * Telephone Encounter - Swati CrumP.NYevgeniy - 03/14/2017 11:[address] Ji, there was a telephone encounter created by you on 03/12, but no documentation. Were you trying to call pt about her thyroid biopsy results? * Telephone Encounter - Ruth Ann Hernandez - 03/14/2017 11:01 AM EDT Caller requesting call back from provider: Is the caller the patient? YES Reason for call back: Patient calling stating someone called her today, would claudia a call back patient also states she had a biopsy done 02/28/17 would like to know what is going on. Caller offered to speak with the nurse for assistance: YES Response: Patient offered to speak with nurse for assistance and patient agreed. Message forwarded to nurse. documented in this encounter Plan of Treatment Not on file documented as of this encounter Visit Diagnoses Not on filedocumented in this encounter Care Teams Reservations Sales Agent Relationship Specialty Start Date End Date Community, Pcp PCP - General Internal Medicine 03/14/17 05/18/17 Silvia Rodriguez MD PCP - General 05/19/17 03/03/22 Silvina, MD Tone PCP - General Internal Medicine 03/04/22 documented as of this encounter
--- OUTSIDE RECORDS SUMMARY | 2025-01-26 13:36 | XMS_ITS | Encounter Summary ---
Author Organization [facility] Address [address] [place] [address] Care Team Providers Care Heel Emery Buffer Name Role Phone Homero Aranda MD Primary Care Provider [phone] [facility], Pcp Primary Care Provider Unavailabl e Silvia Rodriguez MD Primary Care Provider Isi howe Name, Tone SEPULVEDA Primary Care Provider Unavailabl e Reason for Visit * Reason Onset Date Comments Appointment-Internal Referral 09/25/2015 En docrinology Encounter Details Date Type Department Care Team Description 09/25/2015 Telephone Endocrinology - [place] [address] [place] [address] Sriram Ji MD Appointment-Internal Referral (Endocrinology) Social History Tobacco Use Types Packs/Day Years [...] encounter Miscellaneous Notes * Telephone Encounter - Greta Dariusz - 09/25/2015 8:24 AM EST Patient was referred to Endocrinology regarding: abnormal thyroid test Priority: Next Available Called and sent letter with no response. Taking off from referral report. documented in this encounter Plan of Treatment Not on file documented as of this encounter Visit Diagnoses Not on filedocumented in this encounter Care Teams Heel Emery Buffer Relationship Specialty Start Date End Date Homero Aranda MD [address] [place] [address] PCP - General Internal Medicine 07/10/15 03/13/17 [facility], Pcp [address] [place] [address] PCP - General Internal Medicine 03/14/17 05/18/17 Fredy-Silvia Powers MD [address] [place] [address] PCP - General 05/19/17 03/03/22 Name, MD Tone [address] [place] [address] PCP - General Internal Medicine 03/04/22 documented as of this encounter
--- OUTSIDE RECORDS SUMMARY | 2025-01-26 13:36 | XMS_ITS | Encounter Summary ---
Author Organization [employer] Address [address] [facility] 7 [place] [address] Care Team Providers Care Genetic Counselor Name Role Phone NameTone MD Primary Care Provider [phone] Reason for Visit * Reason Onset Date Comments triage 08/20/2022 requesting 08/20/2022 Encounter Details Date Type Department Care Team ([facility] st Contact Info) Description 08/20/2022 Telephone [facility] MEDICINE [address] [place], [place] [phone] NameTone MD [address] [place] [address] triage; requesting Social History Tobacco Use Types Packs/Day Years [...] encounter Miscellaneous Notes * Telephone Encounter - Tone Cool MD - 08/20/2022 10:39 AM EST Patient has an appt in 10 days with me * Telephone Encounter - Annie Velazquez - 08/20/2022 10:34 AM EST Please review message below, if you agree please schedule pt to discuss. Thank you * Telephone Encounter - Saeid Evens - 08/20/2022 9:39 AM EST Tc from pt requesting an electric scooter Please contact pt at [phone] * Telephone Encounter - Saeid Evens - 08/20/2022 9:37 AM EST Symptoms: Pain - Severe, Hip Pain - Not From Injury, Foot or Ankle Pain - Not From Injury Outcome: Schedule an urgent appointment (within 1 hour) or talk to a nurse or provider soon Reason: No high acuity concerns reported by caller The caller accepted this outcome documented in this encounter Plan of Treatment Upcoming Encounters Date Type Department Care Team (Late st Contact Info) Description 02/02/2025 2:00 PM EDT Office Visit [facility] ADULT DENTAL [address] [place] [address] Danny Coleman DDS [address] [place] [address] 04/19/2025 2:45 PM EDT Office Visit [facility] MEDICINE [address] [place] [address] Name, MD Tone [address] [place] [address] documented as of this encounter Visit Diagnoses Not on filedocumented in this encounter Care Teams Genetic Counselor Relationship Specialty Start Date End Date Name, MD Tone [address] [place] [address] PCP - General Family Medicine 08/17/19 documented as of this encounter
--- OUTSIDE RECORDS SUMMARY | 2025-01-26 13:36 | XMS_ITS | Encounter Summary ---
Author Organization [facility] Address [address] [place] [address] Care Team Providers Care Furniture Detailer Name Role Phone Homero Aranda MD Primary Care Provider [phone] [facility], Pcp Primary Care Provider Unavailnathan e Silvia Rodriguez MD Primary Care Provider Tone Barber MD Primary Care Provider Unavailabl e Encounter Details Date Type Department Care Team Description 09/19/2015 Repairer Maintenance Building Report Medical Records [address] [place] [address] [place], [place] Social History Tobacco Use Types Packs/Day Years [...] on filedocumented in this encounter Care Teams Furniture Detailer Relationship Specialty Start Date End Date Homero Aranda MD [address] [place] [address] PCP - General Internal Medicine 07/10/15 03/13/17 Mark Coronel [address] [place] [address] PCP - General Internal Medicine 03/14/17 05/18/17 Silvia Rodriguez MD [address] [place] [address] PCP - General 05/19/17 03/03/22 Tone Cool MD [address] [place] [address] PCP - General Internal Medicine 03/04/22 documented as of this encounter
--- OUTSIDE RECORDS SUMMARY | 2025-01-26 13:36 | XMS_ITS | Encounter Summary ---
Author Organization [employer] Address [address] [facility] 7[address] [place] [address] Care Team Providers Care Kelp Or Seagrass Gatherer Name Role Phone Name, Tone SEPULVEDA Primary Care Provider [phone] Reason for Visit * Reason Comments Med Change Request Encounter Details Date Type Department Care Team ([facility] st Contact Info) Description 10/04/2024 Refill [facility] [address] [place] [address] Name, MD Tone [address] [place] [address] Social History Tobacco Use Types Packs/Day Years [...] Description 02/02/2025 2:00 PM EDT Office Visit [facility] [address] [place] [address] Danny Coleman DDS [address] [place] [address] 04/19/2025 2:45 PM EDT Office Visit [facility] [address] [place] [address] NameTone MD [address] [place] [address] documented as of this encounter Visit Diagnoses Not on filedocumented in this encounter Additional Health Concerns Assessment Noted Time PHQ-9 Depression Total Score: 11 024 2:10 PM EDT documented as of this encounter Care Teams Kelp Or Seagrass Gatherer Relationship Specialty Start Date End Date NameTone MD [address] [place] [address] PCP - General Family Medicine 08/17/19 documented as of this encounter
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
--- OUTSIDE RECORDS SUMMARY | 2025-01-26 13:36 | XMS_ITS | Encounter Summary ---
Author Organization [employer] Address [address] [facility] [address] [place] [address] Care Team Providers Care Pin Or Clip Fastener Name Role Phone Name, Tone SEPULVEDA Primary Care Provider [phone] Encounter Details Date Type Department Care Team (Late st Contact Info) Description 12/16/2024 Orders Only [facility] [address] [place] [address] Provider, MD Evangelist Social History Tobacco Use Types Packs/Day Years [...] 02/02/2025 2:00 PM EDT Office Visit [facility] [address] [place], [place] [phone] Danny Coleman DDS [address] [place] [address] 04/19/2025 2:45 PM EDT Office Visit [facility] [address] [place] [address] Name, MD Tone [address] [place] [phone] documented as of this encounter Procedures Procedure Name Priority Date/Time Associated Diagnosis Comments CT LUNG SCREENING Routine 12/13/2024 11:45 AM EDT documented in this encounter Results * CT Lung Screening Low dose (12/13/2024 11:45 AM EDT) Anatomical Region Laterality Modality Lung Computed Tomogra phy us Historical Provider MD LANCE CT PROCEDURES Final R esult documented in this encounter Visit Diagnoses Not on filedocumented in this encounter Additional Health Concerns Assessment Noted Time PHQ-9 Depression Total Score: 11 024 2:10 PM EDT documented as of this encounter Care Teams Pin Or Clip Fastener Relationship Specialty Start Date End Date Name, MD Tone [address] [place] [phone] PCP - General Family Medicine 08/17/19 documented as of this encounter
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
[2025-01-26 16:45] LABS: Estimated Average Glucose 111 mg/dL; Hemoglobin A1C 123.7831 umol/L; Hemoglobin A1c % 5.5 % (<6.0); Total Hemoglobin (HGBA1C) 3376.1181 umol/L
[2025-01-26 16:55] LABS: Alanine Aminotransferase 35 U/L (0-31); Albumin Level 4.4 g/dL (3.5-5.0); Alkaline Phosphatase 148 U/L (39-117); Anion Gap 12 (12-20); Aspartate Amino Transferase 30 U/L (5-31); Bilirubin Total 0.2 mg/dL (0.0-1.0); Blood Urea Nitrogen 10 mg/dL (9-16); Calcium 9.2 mg/dL (8.4-10.2); Carbon Dioxide 30 mmol/L (22-29); Chloride 104 mmol/L (96-108); Estimated Glomerular Filt Rate > 60; Glucose Random 89 mg/dL (60-115); Potassium 3.9 mmol/L (3.3-5.1); Sodium 142 mmol/L (135-145); Total Protein 7.4 g/dL (6.5-8.0)
== END 2025-01-26 12:55 | disposition home or self-care (01) ==
LOC: HO.HHCL 12:54
PROVIDERS: Visit Provider Internal Medicine Geriatric Medicine
DX: R73.03 Prediabetes (principal)
CPT/HCPCS: 36415; 80053; 83036

== ENCOUNTER 2025-04-25 11:51 | Outpatient (REF) | payer MEDICARE, SELFPAY ==
--- NOTE | ~2025-04-25 | XR_ITS ---
EXAMINATION: XR CHEST 2 VIEWS HISTORY: Cough, wheezing, [place], low grade fevers COMPARISON: Comparison is made with the prior examination dated 04/27/2024. FINDINGS: PA and lateral views of the chest are submitted. There are patchy opacities at both lung bases which may represent early pneumonia. There is no pleural effusion, pneumothorax, or pulmonary vascular congestion. The heart is normal in size. There are mild compression deformities of mid and lower thoracic vertebral bodies which are new from the prior study. XR/XR chest 2V IMPRESSION: 1. Patchy opacities at both lung bases which may represent early pneumonia. Follow-up is recommended to document resolution. 2. Mild compression deformities of mid and lower thoracic vertebral bodies which are new from the prior study Electronically signed by: Duane Lopez MD 04/25/2025 12:46 PM EDT
--- OUTSIDE RECORDS SUMMARY | 2025-04-25 13:09 | XMS_ITS | Clinical Summary ---
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 AM EDT [facility] Blood Venous blood specimen / Unknown Venipuncture / Unknown 03/04/2025 5:55 AM EDT 03/04/2025 6:13 AM EDT Narrative [facility] - 03/04/2025 8:56 AM EDT Procalcitonin > 2.00 ng/ml: Procalcitonin Levels above 2.00 ng/ml, on the first day of ICU admission represent a high risk for progression to severe sepsis and/or septic shock. Procalcitonin < 0.50 ng/ml: Procalcitonin levels below 0.50 ng/ml on the first day of ICU admission represent a low risk for progression to severe sepsis and/or septic shock. Concentrations <0.5 ng/mL do not exclude an infection, on account of local ized infections (without systemic signs) which can be associated with such low concentrations, or a systemic infection in its initial stages (<6 hours). Furthermore, increased procalcitonin can occur without infection. PCT concentrations between 0.5 and 2.0 ng/mL should be interpreted taking into account the patient's history. It is recommended to retest PCT within 6-24 hours if any concentrations <2.0 ng/mL are obtained. us Ezio Marin MD LAB BLOOD ORDERABLES Final Result [facility] [address] [place] [address], * (ABNORMAL) CBC auto differential (03/04/2025 5:55 AM EDT) Only the most recent of5 resultswithin the time period is included. WBC 6.9 4.8 - 10.8 K/mcL LAB HEMETOLOGY METHOD 03/04/2025 6:25 AM EDT [facility] RBC 4.10 3.80 - 4.80 M/mcL LAB HEMETOLOGY METHOD 03/04/2025 6:25 AM EDT [facility] Hemoglobin 11.2(L) 11.5 - 16.0 g/dL LAB HEMETOLOGY METHOD 03/04/2025 6:25 AM EDT [facility] Hematocrit 36.8 35.0 - 47.0 % LAB HEMETOLOGY METHOD 03/04/2025 6:25 AM EDT [facility] MCV 90.6 79.0 - 98.0 FL LAB HEMETOLOGY METHOD 03/04/2025 6:25 AM EDT [facility] MCH 27.6 27.0 - 32.0 pcg LAB HEMETOLOGY METHOD 03/04/2025 6:25 AM EDT [facility] MCHC 30.4(L) 32.0 - 37.0 g/dL LAB HEMETOLOGY METHOD 03/04/2025 6:25 AM EDT [facility] RDW 15.9(H) 11.0 - 15.0 % LAB HEMETOLOGY METHOD 03/04/2025 6:25 AM EDT [facility] Platelets 262 130 - 400 K/mcL LAB HEMETOLOGY METHOD 03/04/2025 6:25 AM EDT [facility] MPV 10.1 7.0 - 11.0 FL LAB HEMETOLOGY METHOD 03/04/2025 6:25 AM [facility] NRBC 0.0 <1.0 % LAB HEMETOLOGY METHOD 03/04/2025 6:25 AM [facility] NRBC Absolute 0.00 <0.10 K/mcL LAB HEMETOLOGY METHOD 03/04/2025 6:25 AM [facility] Neutrophils Relative 57.3 % LAB HEMETOLOGY METHOD 03/04/2025 6:25 AM [facility] Lymphocytes Relative 33.3 % LAB HEMETOLOGY METHOD 03/04/2025 6:25 AM [facility] Monocytes Relative 6.7 % LAB HEMETOLOGY METHOD 03/04/2025 6:25 AM [facility] Eosinophils Relative 1.6 % LAB HEMETOLOGY METHOD 03/04/2025 6:25 AM [facility] Basophils Relative 0.7 % LAB HEMETOLOGY METHOD 03/04/2025 6:25 AM [facility] Immature Granulocytes Relative 0.4 % LAB HEMETOLOGY METHOD 03/04/2025 6:25 AM [facility] Neutrophils Absolute 3.93 1.50 - 7.00 K/mcL LAB HEMETOLOGY METHOD 03/04/2025 6:25 AM [facility] Lymphocytes Absolute 2.29 1.00 - 5.00 K/mcL LAB HEMETOLOGY METHOD 03/04/2025 6:25 AM [facility] Monocytes Absolute 0.46 0.20 - 1.00 K/mcL LAB HEMETOLOGY METHOD 03/04/2025 6:25 AM [facility] Eosinophils Absolute 0.11 0.00 - 0.50 K/mcL LAB HEMETOLOGY METHOD 03/04/2025 6:25 AM [facility] Basophils Absolute 0.05 0.00 - 0.20 K/[facility] LAB HEMETOLOGY METHOD 03/04/2025 6:25 AM T [facility] Immature Granulocytes Absolute 0.03 0.00 - 0.03 K/[facility] LAB HEMETOLOGY METHOD 03/04/2025 6:25 AM [facility] Blood Venous blood specimen / Unknown Venipuncture / Unknown 03/04/2025 5:55 AM EDT 03/04/2025 6:12 AM EDT us Ezio Marin MD LAB BLOOD ORDERABLES Final Result [facility] [address] [place] [address], * (ABNORMAL) Comprehensive metabolic panel (03/04/2025 5:55 AM EDT) Only the most recent of3 resultswithin the time period is included. Sodium 140 133 - 145 mmol/L LAB CHEMISTRY METHOD 03/04/2025 6:38 AM [facility] Potassium 4.0 3.5 - 5.5 mmol/L LAB CHEMISTRY METHOD 03/04/2025 6:38 AM [facility] Chloride 104 96 - 110 mmol/L LAB CHEMISTRY METHOD 03/04/2025 6:38 AM [facility] CO2 31 21 - 32 mmol/L LAB CHEMISTRY METHOD 03/04/2025 6:38 AM [facility] Anion Gap 5 3 - 11 LAB CHEMISTRY METHOD 03/04/2025 6:38 AM [facility] Glucose 94 70 - 100 mg/dL LAB CHEMISTRY METHOD 03/04/2025 6:38 AM [facility] BUN 17 5 - 25 mg/dL LAB CHEMISTRY METHOD 03/04/2025 6:38 AM [facility] Creatinine 0.70 0.50 - 1.10 mg/dL LAB CHEMISTRY METHOD 03/04/2025 6:38 AM [facility] eGFR 96 >=60 mL/min/1. 73m2 LAB CHEMISTRY METHOD 03/04/2025 6:38 AM [facility] Comment:Calculation based on the Chronic Kidney Disease Epidemiology Collaboration (CKD-EPI) equation refit without adjustment for race. BUN/Creatinine Ratio 24.3 LAB CHEMISTRY METHOD 03/04/2025 6:38 AM [facility] Calcium 9.2 8.5 - 10.5 mg/dL LAB CHEMISTRY METHOD 03/04/2025 6:38 AM [facility] AST (SGOT) 43(H) 10 - 42 unit/L LAB CHEMISTRY METHOD 03/04/2025 6:38 AM [facility] ALT (SGPT) 80(H) 10 - 60 unit/L LAB CHEMISTRY METHOD 03/04/2025 6:38 AM [facility] Alkaline Phosphatase 179(H) 42 - 121 unit/L LAB CHEMISTRY METHOD 03/04/2025 6:38 AM [facility] Total Protein 6.6 6.0 - 8.0 g/dL LAB CHEMISTRY METHOD 03/04/2025 6:38 AM [facility] Albumin 3.3 3.2 - 5.0 g/dL LAB CHEMISTRY METHOD 03/04/2025 6:38 AM [facility] Total Bilirubin 0.2 0.0 - 1.4 mg/dL LAB CHEMISTRY METHOD 03/04/2025 6:38 AM [facility] Blood Venous blood specimen / Unknown Venipuncture / Unknown 03/04/2025 5:55 AM EDT 03/04/2025 6:12 AM EDT us Ezio Marin MD LAB BLOOD ORDERABLES Final Result [facility] [address] [place] [address], [place] [phone] * US Abdomen Limited (03/04/2025 1:32 AM EDT) Anatomical Region Laterality Modality Body Ultrasound 03/04/2025 3:23 AM EDT Addenda Addendum by Jovani Silveira MD on 03/04/2025 3:27 AM EDT ADDENDUM: This report was discussed with Dr GREENE on Mar 04, 2025 03:25:00 EDT. This document has been electronically signed by: Silvina Hernandez on 03/04/2025 03:27:07 Impressions 03/04/2025 3:23 AM EDT 1. Reported positive sonographic Laura's sign. The gallbladder wall is thickened, however, the gallbladder is contracted. Given positive sonographic Laura's sign recommend nuclear medicine HIDA scan to exclude development of acute cholecystitis. 2. Hepatomegaly. Hepatic cysts largest measuring 1.7 cm. 3. The common bile duct is 5 mm in diameter. Findings may be normal given reported age. This document has been electronically signed by: Jovani Silveira DO on 03/04/2025 03:23:10 Narrative 03/04/2025 3:23 AM EDT INDICATION: CHEST PAIN, ACUTE, NONSPECIFIC, LOW PROB CAD US abdomen limited Comparison: CT - CT ANGIO CHEST WO AND OR W CONTRAST - 02/18/25 22:30 EDT Findings: The pancreas is not visualized on the current exam Hepatomegaly, the liver measures 19.4 cm. Anechoic cysts within the bilateral liver largest within the right lobe measures 1.7 x 1.5 x 1.3 cm. There is no intrahepatic bile duct dilatation. The common bile duct is 5 mm in diameter. Findings may be normal given reported age. Positive reported sonographic Laura sign. The gallbladder wall measures 5 mm. The gallbladder is contracted. No cholelithiasis. The main portal vein is antegrade. The right kidney is normal in size and echotexture, 10.6 cm length. No ascites. Procedure Note Jovani Silveira MD - 03/04/2025 INDICATION: CHEST PAIN, ACUTE, NONSPECIFIC, LOW PROB CAD US abdomen limited Comparison: CT - CT ANGIO CHEST WO AND OR W CONTRAST - 02/18/25 22:30 EDT Findings: The pancreas is not visualized on the current exam Hepatomegaly, the liver measures 19.4 cm. Anechoic cysts within the bilateral liver largest within the right lobe measures 1.7 x 1.5 x 1.3cm. There is no intrahepatic bile duct dilatation. The common bile duct is 5 mm in diameter. Findings may be normal given reported age. Positive reported sonographic Laura sign. The gallbladder wall measures5 mm. The gallbladder is contracted. No cholelithiasis. The main portal vein is antegrade. The right kidney is normal in size and echotexture, 10.6 cm length. No ascites. IMPRESSION: 1. Reported positive sonographic Laura's sign. The gallbladder wall is thickened, however, the gallbladder is contracted. Given positive sonographic Laura's sign recommend nuclear medicine HIDA scan toexclude development of acute cholecystitis. 2. Hepatomegaly. Hepatic cysts largest measuring 1.7 cm. 3. The common bile duct is 5 mm in diameter. Findings may be normalgiven reported age. This document has been electronically signed by: Jovani Silveira DO on 03/04/2025 03:23:10 us Claudia Greene MD IMG US PROCEDURES Edited Result - Final * XR Chest 2 Views (03/04/2025 1:08 AM EDT) Only the most recent of2 resultswithin the time period is included. Anatomical Region Laterality Modality Body Radiographic Azul ging 03/04/2025 8:17 AM EDT Impressions 03/04/2025 8:18 AM EDT Hypoventilatory exam. No acute findings. -------- FINAL REPORT -------- Dictated By: Wily Vargas Dictated Date: 03/04/2025 08:17 ET Assigned Physician: Wily Vargas Reviewed and Electronically Signed By: Wily Vargas Signed Date: 03/04/2025 08:18 ET Workstation ID: [id number] Transcribed By: Self Edit Transcribed Date: 03/04/2025 08:17 ET Narrative 03/04/2025 8:18 AM EDT PROCEDURE: PA and lateral radiographs of the chest. HISTORY: chest pain. COMPARISON: 02/18/2025. FINDINGS: Mildly hypoventilatory exam. Slightly elevated left hemidiaphragm. Linear bandlike opacity in the mid right lung, scarring versus atelectasis. Mild left basilar atelectasis. Lungs otherwise clear.s cardiomediastinal contours are within normal limits. No pneumothorax or pleural effusion. No pulmonary edema. Degenerative changes of the spine. Age-indeterminate mild anterior wedge compression deformity in the upper lumbar spine. Procedure Note Wily Vargas MD - 03/04/2025 PROCEDURE: PA and lateral radiographs of the chest. HISTORY: chest pain. COMPARISON: 02/18/2025. FINDINGS: Mildly hypoventilatory exam. Slightly elevated left hemidiaphragm.Linear bandlike opacity in the mid right lung, scarring versusatelectasis. Mild left basilar atelectasis. Lungs otherwise clear.scardiomediastinal contours are within normal limits. No pneumothorax orpleural effusion. No pulmonary edema. Degenerative changes of the spine.Age-indeterminate mild anterior wedge compression deformity in the upperlumbar spine. IMPRESSION: Hypoventilatory exam. No acute findings. -------- FINAL REPORT -------- Dictated By: Wily Vargas Dictated Date: 03/04/2025 08:17 ET Assigned Physician: Wily Vargas Reviewed and Electronically Signed By: Wily Vargas Signed Date: 03/04/2025 08:18 ET Workstation ID: [id number] Transcribed By: Self Edit Transcribed Date: 03/04/2025 08:17 ET us Ezio Marin MD IMG XR PROCEDURES Final Res ult * Respiratory virus panel molecular study (03/04/2025 12:51 AM EDT) Only the most recent of2 resultswithin the time period is included. Adenovirus Detection by PCR Not Detected Not Detected LAB MICROBIOLOGY METHOD 03/04/2025 2:02 AM EDT [facility] Influenza A PCR Not Detected Not Detected LAB MICROBIOLOGY METHOD 03/04/2025 2:02 AM EDT [facility] Influenza B PCR Not Detected Not Detected LAB MICROBIOLOGY METHOD 03/04/2025 2:02 AM EDT [facility] Coronavirus 229E Not Detected Not Detected LAB MICROBIOLOGY METHOD 03/04/2025 2:02 AM EDT [facility] Coronavirus HKU1 Not Detected Not Detected LAB MICROBIOLOGY METHOD 03/04/2025 2:02 AM EDT [facility] Coronavirus OC43 Not Detected Not Detected LAB MICROBIOLOGY METHOD 03/04/2025 2:02 AM EDT [facility] Coronavirus NL63 Not Detected Not Detected LAB MICROBIOLOGY METHOD 03/04/2025 2:02 AM EDT [facility] Parainfluenza Virus 1 Not Detected Not Detected LAB MICROBIOLOGY METHOD 03/04/2025 2:02 AM EDT [facility] Parainfluenza Virus 2 Not Detected Not Detected LAB MICROBIOLOGY METHOD 03/04/2025 2:02 AM EDT [facility] Parainfluenza Virus 3 Not Detected Not Detected LAB MICROBIOLOGY METHOD 03/04/2025 2:02 AM EDT [facility] Parainfluenza Virus 4 Not Detected Not Detected LAB MICROBIOLOGY METHOD 03/04/2025 2:02 AM EDT [facility] RSV PCR Not Detected Not Detected LAB MICROBIOLOGY METHOD 03/04/2025 2:02 AM EDT [facility] Human Metapneumovirus A and B Not Detected Not Detected LAB MICROBIOLOGY METHOD 03/04/2025 2:02 AM EDT [facility] Rhinovirus/Entero virus Not Detected Not Detected LAB MICROBIOLOGY METHOD 03/04/2025 2:02 AM EDT [facility] Bordetella pertussis Not Detected Not Detected LAB MICROBIOLOGY METHOD 03/04/2025 2:02 AM EDT [facility] Bordetella parapertussis Not Detected Not Detected LAB MICROBIOLOGY METHOD 03/04/2025 2:02 AM EDT [facility] Mycoplasma pneumo by PCR Not Detected Not Detected LAB MICROBIOLOGY METHOD 03/04/2025 2:02 AM EDT [facility] Chlamydia pneumoniae Not Detected Not Detected LAB MICROBIOLOGY METHOD 03/04/2025 2:02 AM EDT [facility] SARS COV-2 Not Detected Not Detected LAB MICROBIOLOGY METHOD 03/04/2025 2:02 AM EDT [facility] Swab Both anterior nares / Unknown Non-blood Collection / Unknown 03/04/2025 12:51 AM EDT 03/04/2025 1:[address] [facility] - 03/04/2025 2:02 AM EDT Testing was performed using the [employer] Respiratory Pathogen PCR Assay. All results must be correlated with the clinical findings. Results should not be used as the sole basis for diagnosis. False Negative results may occur from the presence of sequence variants in the region targeted by the assay or the presence of inhibitors. Results may be affected by concurrent antiviral/antimicrobial therapy or levels of organisms that are below the limit of detection. us Claudia Greene MD LAB MICROBIOLOGY - GENER AL ORDERABLES Final Result [facility] [address] [place] [address], * Troponin I high sensitivity (03/04/2025 12:50 AM EDT) Only the most recent of4 resultswithin the time period is included. High Sensitivity Troponin I 5 <=54 ng/L LAB CHEMISTRY METHOD 03/04/2025 1:27 AM EDT [facility] Blood Venous blood specimen / Unknown Venipuncture / Unknown 03/04/2025 12:50 AM EDT 03/04/2025 1:[address] [facility] - 03/04/2025 1:27 AM EDT High levels of biotin in samples may falsely decrease hsTroponin values. Use caution when interpreting hsTroponin results in patients taking biotin who exhibit renal impairment (eGFR <60) or in patients taking more than 20 mg/day of biotin. us Maliha LUNA LAB BLOOD ORDERABLES Final Resu lt Performing Organization Address [facility] Co de Phone Number [facility] [address] [place] [address], * ECG 12 lead (03/04/2025 12:47 AM EDT) Only the most recent of5 resultswithin the time period is included. Ventricular Rate ECG 61 BPM GEMUSE Atrial Rate 61 BPM GEMUSE P-R Interval 166 ms GEMUSE QRS Duration 88 ms GEMUSE Q-T Interval 416 ms GEMUSE QTc 418 ms GEMUSE P Wave [place] 35 degrees GEMUSE R [place] 34 degrees GEMUSE T [place] 78 degrees GEMUSE ECG Interpretation Normal sinus rhythm Nonspecific T wave abnormality Abnormal ECG When compared with ECG of 03-MAR-2025 22:52, (unconfirmed) No significant change was found Confirmed by Teresa EVERETT YUFENG ([id number]) on 03/04/2025 8:09:56 AM GEMUSE 03/04/2025 12:4 7 AM EDT 03/04/2025 8:09 AM EDT us Maliha LUNA ECG ORDERABLES Final Result Performing Organization Address [facility] de Phone Number GEMUSE * C-reactive protein (03/03/2025 10:54 PM EDT) Pathologist [facility] C-Reactive Protein <0.29 <=0.50 mg/dL LAB CHEMISTRY METHOD 03/04/2025 5:36 AM EDT [facility] Blood Venous blood specimen / Unknown Venipuncture / Unknown 03/03/2025 10:54 PM EDT 03/03/2025 11:20 PM EDT Ezio Marin MD LAB BLOOD ORDERABLES Final Result Performing Organization Address [facility]/ZIP Co de Phone Number [facility] [address] [place] [address], [place] [phone] * B-type natriuretic peptide (03/03/2025 10:54 PM EDT) Only the most recent of2 resultswithin the time period is included. BNP 9 <=100 pcg/mL LAB CHEMISTRY METHOD 03/03/2025 11:55 PM EDT [facility] Blood Venous blood specimen / Unknown Venipuncture / Unknown 03/03/2025 10:54 PM EDT 03/03/2025 11:20 PM EDT Maliha LUNA LAB BLOOD ORDERABLES Final Resu lt Performing Organization Address [facility] de Phone Number [facility] [address] [place] [address], [place] [phone] * Magnesium (03/03/2025 10:54 PM EDT) Only the most recent of2 resultswithin the time period is included. Magnesium 2.5 1.9 - 2.6 mg/dL LAB CHEMISTRY METHOD 03/03/2025 11:46 PM EDT [facility] Blood Venous blood specimen / Unknown Venipuncture / Unknown 03/03/2025 10:54 PM EDT 03/03/2025 11:20 PM EDT Maliha LUNA LAB BLOOD ORDERABLES Final Resu lt Performing Organization Address [facility]/ZIP Co de Phone Number [facility] [address] [place] [address], [place] [phone] * Lipase (03/03/2025 10:54 PM EDT) Only the most recent of2 resultswithin the time period is included. Lipase 36 13 - 75 unit/L LAB CHEMISTRY METHOD 03/03/2025 11:46 PM T [facility] Blood Venous blood specimen / Unknown Venipuncture / Unknown 03/03/2025 10:54 PM EDT 03/03/2025 11:20 PM EDT us Maliha LUNA LAB BLOOD ORDERABLES Final Resu lt [facility] [address] [place] [address], [place] [phone] * (ABNORMAL) Basic metabolic panel (02/21/2025 5:42 AM EDT) Only the most recent of3 resultswithin the time period is included. [facility] Sodium 138 133 - 145 mmol/L LAB CHEMISTRY METHOD 02/21/2025 7:09 AM [facility] Potassium 4.6 3.5 - 5.5 mmol/L LAB CHEMISTRY METHOD 02/21/2025 7:09 AM [facility] Chloride 101 96 - 110 mmol/L LAB CHEMISTRY METHOD 02/21/2025 7:09 AM [facility] CO2 34(H) 21 - 32 mmol/L LAB CHEMISTRY METHOD 02/21/2025 7:09 AM [facility] Anion Gap 3 3 - 11 LAB CHEMISTRY METHOD 02/21/2025 7:09 AM [facility] Glucose 104(H) 70 - 100 mg/dL LAB CHEMISTRY METHOD 02/21/2025 7:09 AM [facility] BUN 12 5 - 25 mg/dL LAB CHEMISTRY METHOD 02/21/2025 7:09 AM [facility] Creatinine 0.60 0.50 - 1.10 mg/dL LAB CHEMISTRY METHOD 02/21/2025 7:09 AM [facility] eGFR 99 >=60 mL/min/1. 73m2 LAB CHEMISTRY METHOD 02/21/2025 7:09 AM EDT [facility] Comment:Calculation based on the Chronic Kidney Disease Epidemiology Collaboration (CKD-EPI) equation refit without adjustment for race. BUN/Creatinine Ratio 20.0 LAB CHEMISTRY METHOD 02/21/2025 7:09 AM EDT [facility] Calcium 9.2 8.5 - 10.5 mg/dL LAB CHEMISTRY METHOD 02/21/2025 7:09 AM EDT [facility] Blood Venous blood specimen / Unknown Venipuncture / Unknown 02/21/2025 5:42 AM EDT 02/21/2025 6:28 AM EDT Heather LUNA LAB BLOOD ORDERABLES Final Result Performing Organization Address [facility]/ZIP Co de Phone Number [facility] [address] [place] [address], [place] [phone] * Lavender tube (02/21/2025 5:39 AM EDT) Extra Tube Hold for add-ons. 02/21/2025 8:01 AM EDT [facility] Comment:Auto resulted. Blood Venous blood specimen / Unknown Venipuncture / Unknown 02/21/2025 5:39 AM EDT 02/21/2025 6:28 AM EDT Werner Livingston MD LAB BLOOD ORDERABLES F inal Result Performing Organization Address City/[facility]/ZIP Co de Phone Number [facility] [address] [place] [address], [place] [phone] * Blood Culture, Peripheral #2 (02/18/2025 11:59 PM EDT) Only the most recent of2 resultswithin the time period is included. Culture, Blood No growth at 5 days 02/24/2025 3:03 AM EDT [facility] Blood Venous blood specimen / Unknown Venipuncture / Unknown 02/18/2025 11:59 PM EDT 02/19/2025 12:11 AM EDT us Kyler LUNA LAB MICROBIOLOGY - GENERAL ORDER MEG Final Result [facility] [address] [place] [address], [place] [phone] * CT Angio Chest wo and/or w Contrast (02/18/2025 10:31 PM EDT) Anatomical Region Laterality Modality Body Computed Tomogra phy 02/18/2025 11:0 8 PM EDT Impressions 02/18/2025 11:08 PM EDT 1. No pulmonary embolus. 2. Lower lobe consolidations, right worse than left, concerning for pneumonia. 3. Trace right pleural effusion. 4. Age indeterminate mild superior endplate compression fracture of T7. No retropulsion. This document has been electronically signed by: Gin Del Real MD on 02/18/2025 23:08:22 Narrative 02/18/2025 11:08 PM EDT INDICATION: PE suspected, high prob CT angiography chest with contrast. 3D Postprocessing. Comparison: None Findings: The heart is normal size. RV/LV ratio is normal. Unremarkable thoracic aorta and great vessels. No aneurysm. No pulmonary artery filling defects. Small hiatal hernia. No enlarged mediastinal or hilar lymph nodes. Lower lobe consolidations, right worse than left, concerning for pneumonia. Trace right pleural effusion. No pneumothorax. Left hepatic lobe cyst. No acute findings in the visualized upper abdomen. Age indeterminate mild superior endplate compression fracture of T7. No retropulsion. Procedure Note Gin Del Real MD - 02/18/2025 INDICATION: PE suspected, high prob CT angiography chest with contrast. 3D Postprocessing. Comparison: None Findings: The heart is normal size. RV/LV ratio is normal. Unremarkable thoracic aorta and great vessels. No aneurysm. No pulmonary artery filling defects. Small hiatal hernia. No enlarged mediastinal or hilar lymph nodes. Lower lobe consolidations, right worse than left, concerning for pneumonia. Trace right pleural effusion. No pneumothorax. Left hepatic lobe cyst. No acute findings in the visualized upperabdomen. Age indeterminate mild superior endplate compression fracture of T7. No retropulsion. IMPRESSION: 1. No pulmonary embolus. 2. Lower lobe consolidations, right worse than left, concerning for pneumonia. 3. Trace right pleural effusion. 4. Age indeterminate mild superior endplate compression fracture of T7.No retropulsion. This document has been electronically signed by: Gin Del Real MD on 02/18/2025 23:08:[address] PROCEDURES Final Result * Light blue tube (02/18/2025 9:39 PM EDT) [facility] Extra Tube Hold for add-ons. 02/18/2025 11:01 PM EDT [facility] Comment:Auto resulted. Blood Venous blood specimen / Unknown 02/18/2025 9:39 PM EDT 02/18/2025 9:55 PM EDT Inga LUNA LAB BLOOD ORDERABLES Final Res ult Performing Organization Address City/[facility]/ZIP Co de Phone Number [facility] [address] [place] [address], [place] [phone] * APTT (02/18/2025 9:39 PM EDT) [facility] aPTT 34.9 24.1 - 39.3 sec LAB COAGULATION METHOD 02/18/2025 10:07 PM EDT [facility] Blood Venous blood specimen / Unknown Venipuncture / Unknown 02/18/2025 9:39 PM EDT 02/18/2025 9:54 PM EDT Inga LUNA LAB BLOOD ORDERABLES Final Res ult Performing Organization Address City/[facility]/ZIP Co de Phone Number [facility] [address] [place] [address], [place] [phone] * Prothrombin time with INR (02/18/2025 9:39 PM EDT) [facility] Protime 11.6 10.6 - 13.9 sec LAB COAGULATION METHOD 02/18/2025 10:07 PM EDT [facility] INR 0.9 LAB COAGULATION METHOD 02/18/2025 10:07 PM EDT [facility] Blood Venous blood specimen / Unknown Venipuncture / Unknown 02/18/2025 9:39 PM EDT 02/18/2025 9:54 PM EDT Inga LUNA LAB BLOOD ORDERABLES Final Res ult Performing Organization Address [facility] Co de Phone Number [facility] [address] [place] [address], * (ABNORMAL) D-Dimer (02/18/2025 9:39 PM EDT) [facility] D-Dimer, Quant (D-DU) 330(H) <=230 ng/mL DDU LAB COAGULATION METHOD 02/18/2025 10:07 PM EDT [facility] Blood Venous blood specimen / Unknown Venipuncture / Unknown 02/18/2025 9:39 PM EDT 02/18/2025 9:54 PM EDT Narrative [facility] - 02/18/2025 10:07 PM EDT D-Dimer <230 ng/mL (D-Dimer units) is the threshold for exclusion of DVT/PE. D-Dimer may be elevated in: Critically ill, severely infected, trauma patients, DIC, acute CVA, acute WA, unstable angina, AF, old age, , and smoking. D-Dimer may be decreased with: Initiation of heparin therapy and oral anticoagulants. Inga LUNA LAB BLOOD ORDERABLES Final Res ult Performing Organization Address [facility]/State/ZIP Co de Phone Number [facility] [address] [place] [address], * CT Lung Screening (12/13/2024 4:05 PM EDT) Anatomical Region Laterality Modality Chest Computed Tomogra phy 12/15/2024 3:56 PM EDT Impressions 12/15/2024 5:14 PM EDT No new or suspicious pulmonary nodules. Lung RADS 2-benign. Recommend continued screening with low-dose chest CT in 12 months. -------- FINAL REPORT -------- Dictated By: MIAH FU Dictated Date: 12/15/2024 15:56 ET Assigned Physician: MIAH FU Reviewed and Electronically Signed By: MIAH FU Signed Date: 12/15/2024 17:14 ET Workstation ID: [id number] Transcribed By: Self Edit Transcribed Date: 12/15/2024 15:56 ET Narrative 12/15/2024 5:14 PM EDT PROCEDURE: Chest CT INDICATION: Lung cancer screening TECHNIQUE: Chest CT without contrast. Multi planar reformats were created and interpreted. The examination was performed utilizing dose reduction techniques. Total DLP 160 COMPARISON: 11/24/2023 FINDINGS: LUNGS/PLEURA: Central airways are patent. Mild emphysema. 3 mm nodule in the right middle lobe is stable compared to prior. 3 mm subpleural nodule at the left apex is also unchanged. No new or suspicious pulmonary nodules. MEDIASTINUM: Thyroidectomy. No mediastinal or hilar lymphadenopathy. Small hiatal hernia. Cardiac chambers are normal in size. No pericardial effusion. No significant coronary artery calcifications. CHEST WALL: No axillary lymphadenopathy or superficial hematoma. UPPER ABDOMEN:The visualized portions of the upper abdomen are unremarkable. BONES: No acute fracture. Chronic deformity at the T12 vertebral body. Scattered degenerative changes seen throughout the bones. Procedure Note Miah Fu MD - 12/15/2024 PROCEDURE: Chest CT INDICATION: [...] months. -------- FINAL REPORT -------- Dictated By: MIAH FU Dictated Date: 12/15/2024 15:56 ET Assigned Physician: MIAH FU Reviewed and Electronically Signed By: MIAH FU Signed Date: 12/15/2024 17:14 ET Workstation ID: [id number] Transcribed By: Self Edit Transcribed Date: 12/15/2024 15:56 ET Arnaud Phillips MD IM CT PROCEDURES Final Result * (ABNORMAL) Lipid panel (06/12/2016) LDL/HDL Ratio 4 0 - 4 Triglycerides 253(A) 0 - 150 mg/dL Cholesterol 265(A) 0 - 200 mg/dL HDL 60 >=40 mg/dL LDL Cholesterol 155(A) 0 - 100 mg/dL Blood Venous blood specimen / Unknown [facility] Provider LAB BLOOD ORDERABLES Kesha l Result from Last 3 Months or Most Recently Relevant to Health Maintenance Insurance [place]ICA[place] [employer] MEDICARE ADVANTAGE Advance Directives * Full Code - Default (Latest Code Status on File) Date Activated Date Inactivated Comments 03/04/2025 5:16 AM 03/05/2025 5:53 PM This is orde r is used when code status has not been discussed with the patient, or code status is otherwise unknown/unconfirmed To update the patient's code status, place a code status order. Do not modify or discontinue any currently active code status orders. * Full Code - Default Date Activated Date Inactivated Comments 02/19/2025 12:50 AM 02/21/2025 8:45 PM This is ord er is used when code status has not been discussed with the patient, or code status is otherwise unknown/unconfirmed To update the patient's code status, place a code status order. Do not modify or discontinue any currently active code status orders.
--- OUTSIDE RECORDS SUMMARY | 2025-04-25 13:09 | XMS_ITS | Encounter Summary ---
Author Organization [facility] Address [address] [place] [address] Phone Care Team Providers Care Welding Machine Operator Thermit Name Role Phone Kiara Mcgrath Primary Care Provider [facility] Primary Care Provider [phone] Reason for Visit * Reason Comments Med Refill Encounter Details Date Type Department Care Team (Late st Contact Info) Description 06/04/2024 Refill [facility] [address] [place] [address] Kobe John MD [address] [place] [id number] Social History Tobacco Use Types Packs/Day Years Used Date Smoking Tobacco: Never Assessed Comments Unknown Sex and Gender Information Value Date Recorded Sex Assigned at Not on file Legal Sex Female 9:58 AM EDT Gender Identity Not on file Sexual Orientation Not on file documented as of this encounter Miscellaneous Notes * Telephone Encounter - Nida Mcgee - 06/04/2024 3:00 PM EDT Copied from [facility] #[id number]. Topic: Access To Service >> Jun 04, 2024 2:57 PM Nida Santiago wrote: Patient called front desk assistant stating that she is completely out of her Cyclobenzaprine (Flexeril) medication and is in a lot of pain. Best number to reach her is [phone] documented in this encounter Plan of Treatment Not on file documented as of this encounter Visit Diagnoses Not on filedocumented in this encounter Care Teams Welding Machine Operator Thermit Relationship Specialty Start Date End Date Kiara Mcgrath PCP - General 05/06/24 12/16/24 [facility] [address] [place] [id number] PCP - General 12/17/24 documented as of this encounter
--- OUTSIDE RECORDS SUMMARY | 2025-04-25 13:09 | XMS_ITS | Encounter Summary ---
Author Organization [employer] Address [address] [facility] [address] [place] [address] Care Team Providers Care Used Car Manager Name Role Phone Name, Tone SEPULVEDA Primary Care Provider [phone] Reason for Visit * Reason Onset Date Comments ER Follow-up 08/11/2023 Encounter Details Date Type Department Care Team ([facility] st Contact Info) Description 08/11/2023 Telephone [facility] [address] [place] [address] Name, MD Tone [address] [place] [address] ER Follow-up Social History Tobacco Use Types [...] the past 12 months, has t he [employer], oil or water [employer] threatened to shut off services in your [...] report ED [facility]. Seen for two times fall. Patient advised will forward to team nurse for follow up. documented in this encounter Plan of Treatment Upcoming Encounters Date Type Department Care Team (Late st Contact Info) Description 05/12/2025 1:00 PM EDT Office Visit [facility] [address] [place] [address] Gabbi Sutherland, OD [address] [place] [address] 05/13/2025 1:30 PM EDT Telemedicine [facility] [address] [place] [address] Tanya Ellison RN 07/19/2025 10:45 AM EST Office Visit [facility] [address] [place] [address] NameTone MD [address] [place] [address] documented as of this encounter Visit Diagnoses Not on filedocumented in this encounter Additional Health Concerns Assessment Noted Time PHQ-9 Depression Total Score: 0 12/26/19 23 1:52 PM EDT documented as of this encounter Care Teams Used Car Manager Relationship Specialty Start Date End Date Name, MD Tone [address] [place] [phone] PCP - General Family Medicine 08/17/19 Annie HERNANDEZ 02/16/25 04/18/25 documented as of this encounter
--- OUTSIDE RECORDS SUMMARY | 2025-04-25 13:09 | XMS_ITS | Encounter Summary ---
Author Organization [facility] Address [address] [employer] [address] [address] Phone Care Team Providers Care Hand Woodworking Sander Name Role Phone Name, Tone SEPULVEDA Primary Care Provider [phone] Encounter Details Date Type Department Care Team (Late st Contact Info) Description 05/19/2024 Procedure Pass [facility] Echocardiography [address] [place] [address] Social History Tobacco Use Types Packs/Day Years Used Date Smoking Tobacco: Never Assessed Education Answer Date Recorded Are you interested in more education? Not on magui e 05/19/2024 Are you concerned about learning? Not on file 05/19/2024 No 05/19/2024 No 05/19/2024 Digital Access Answer Date Recorded No 05/19/2024 No 05/19/2024 Reliable internet access at home? Not on file 05/19/2024 Device with a working camera? Not on file Intimate Partner Violence Answer Date R ecorded Are you denied basic needs s uch as food, clothing, or medical care? No 05/18/2024 In the past 12 months have y ou been in a relationship with a person who hurts, threatens, or tries to control you? No 05/18/2024 Are you denied basic needs s uch as food, clothing, or medical care? No 05/18/2024 In the past 12 months have y ou been in a relationship with a person who hurts, threatens, or tries to control you? No 05/18/2024 Comments Unknown Sex and Gender Information Value Date Recorded Sex Assigned at Female 05/18/2024 10:14 PM EDT Legal Sex Female 6:24 PM EDT Gender Identity Female 05/18/2024 10:14 PM EDT Sexual Orientation Straight 05/18/2024 10 :14 PM EDT documented as of this encounter Plan of Treatment Not on file documented as of this encounter Visit Diagnoses Not on filedocumented in this encounter Additional Health Concerns Infection Onset Date Last Indicated Resolved Time CoV-Exposed Comment:Removed via automated background process based on negative test result 05/20/2024 05/20/2024 05/23/2024 4:03 PM E DT documented as of this encounter Care Teams Hand Woodworking Sander Relationship Specialty Start Date End Date Name, MD Tone [address] [place] [address] PCP - General Internal Medicine 05/18/24 documented as of this encounter Additional Source Comments The information contained in this document represents components of the legal health record. It is not the complete legal health record.[facility]
== END 2025-04-25 11:52 | disposition home or self-care (01) ==
LOC: HO.HHCL 11:51
PROVIDERS: PCP Internal Medicine Geriatric Medicine; Visit Provider Internal Medicine Geriatric Medicine
DX: J44.1 Chronic obstructive pulmonary disease with (acute) exacerbation (principal); R50.9 Fever, unspecified
CPT/HCPCS: 71046

== ENCOUNTER → 2025-04-25 12:23 | Outpatient (BNV) | payer MEDICARE, SELFPAY | PROVIDERS: PCP Internal Medicine Geriatric Medicine; Visit Provider Radiology Diagnostic Radiology | DX: R05.9 Cough, unspecified (principal) | CPT/HCPCS: 71046 ==

== ENCOUNTER 2025-05-17 15:11 | Outpatient (REF) | payer OTHER, SELFPAY | END 2025-05-17 15:12 | disposition home or self-care (01) | LOC: HO.LAB 15:11 | PROVIDERS: PCP Internal Medicine Geriatric Medicine; Visit Provider Nurse Practitioner Family | DX: N32.81 Overactive bladder (principal); N39.46 Mixed incontinence; N39.0 Urinary tract infection, site not specified; Z79.899 Other long term (current) drug therapy | CPT/HCPCS: 81003; 87086; 87088; 87186; 99212 ==

== ENCOUNTER 2025-05-17 15:11 | Outpatient (AMB) | payer OTHER, SELFPAY ==
--- OUTSIDE RECORDS SUMMARY | 2025-05-13 13:30 | XMS_ITS | Encounter Summary ---
Author Organization [employer] Address [address] [place] [address] Care Team Providers Care Chief Engineer'S Helper Name Role Phone Name, Tone SEPULVEDA Primary Care Provider [phone] Reason for Visit * Reason Comments POINT OF CARE SPECIALIST Renewal Encounter Details Date Type Department Care Team (Latest Contact Info) Description 05/13/2025 1:30 PM EDT Telemedicine [facility] [address] [place] [address] Tanya Ellison RN Long-term current use of opiate analgesic; Long-term current use of benzodiazepine Social History Tobacco Use Types Packs/Day Years Used Date Smoking Tobacco: Some Days Cigarettes Passive Smoke Exposure: Current Smokeless Tobacco: Never Alcohol Use Standard Drinks/Week [...] the past 12 months, has t he [email or web address], gas, oil or water [employer] threatened to shut off services in your [...] Author Feeling nervous, anxious, or on edge 3 01/2025 1:08 PM EDT Tanya Ellison, SHUBHAM Not being able to stop or co ntrol worrying 3 05/13/2025 1:08 PM EDT Tanya Ellison RN Worrying too much about diff erent things 2 05/13/2025 1:08 PM EDT Tanya Ellison RN Trouble relaxing 3 05/13/2025 1:08 PM EDT Tanya Pleitez ae, RN Being so restless that it is hard to sit still 3 05/13/2025 1:08 PM EDT Tanya Ellison RN Becoming easily annoyed or irritable 2 01/2025 1:08 PM EDT Tanya Ellison RN Feeling afraid as if somethi ng awful might happen 2 05/13/2025 1:08 PM EDT Tanya Ellison RN ESTHER-7 Total Score 18 05/13/2025 1:08 PM EDT Tanya Ellison RN documented as of this encounter Progress Notes * Tanya Ellison RN - 05/13/2025 1:30 PM EDT SUBJECTIVE: Annie Estes is a 64 y.o. year old female who is called for POINT OF CARE SPECIALIST Renewal Preferred language for medical information: Bots[place] Annie Estes does report adherence to Oxycodone 15 mg, take 1 tablet every 4 hours PRN, last refilled 04/28/2025. Annie Estes does report adherence to Clonazepam (Klonopin) 1 mg, take 1 tablet every 12 hours PRN, last refilled 04/28/2025. The patient last took Oxycodone on: 05/13/2025 Medication is: 80% % effective at alleviating pain. The patient last took Clonazepam (Klonopin) on: 05/13/2025 Medication effective: Yes Sleep habits: ok usually Therapist: Denies therapist and declines referral OBJECTIVE: WEB ART DIRECTOR checked: 05/13/2025 Pill count completed for Oxycodone , patient reports count today is 75 , anticipated count should be 74, this is as expected. Pill count completed for Clonazepam (Klonopin), patient reports count today is 25 , anticipated count should be 25, this is as expected. Vital Signs Pain Score: 8 Pain Loc: Back Pain Education: Yes Additional pain site: neck, head, hips, legs, arms and shoulders Last PCP visit: 04/25/2025 BPI completed on: 05/13/2025 , pain severity score: 9, activity interference score: 9 BPI completed on: 07/30/2024 , pain severity score: 10, activity interference score: 4 ESTHER-7 Total Score: 18 (05/13/2025 1:08 PM) Previous ESTHER-7 done: 07/30/2024, score: 20 Controlled substance agreement signed: Controlled Substance Agreement 05/13/2025 Controlled substance agreement: signed and up to date POINT OF CARE SPECIALIST Tele Tier: 2 Current Medications[1] Smoking status: Yes, states she has a lot of stress with family currently and is smoking again, about 5 cigarettes a day. ETOH use: Denies Illicit substances: Denies Marijuana use: No ASSESSMENT: Encounter Diagnoses Name Primary? Long-term current use of opiate analgesic Long-term current use of benzodiazepine PLAN: Information on pain group given: Yes Information on acupuncture given: Yes Narcan education provided: Yes Narcan prescription: active Will update PCP with BPI & ESTHER scoring. Controlled substance agreement reviewed and signed. Annie Estes will continue taking medications as prescribed and has verbalized understanding of care plan. Future Appointments Date Time Provider Department Center 05/13/2025 1:30 PM Tanya Ellison RN MEDICINE [facility] 07/19/2025 10:45 AM Tone Cool MD [facility] 07/22/2025 1:30 PM Tanya Ellison RN [facility] Tanya Ellison RN [1] Current Outpatient Medications: clonazePAM (KlonoPIN) 1 MG tablet, TAKE 1 TABLET BY MOUTH TWICE DAILY NEEDED FOR ANXIETY OR PANIC ATTACK Do not start before April 28, 2025., Disp: 56 tablet, Rfl: 0 naloxone (Narcan) 4 mg/0.1 mL nasal spray, FOR SUSPECTED OPIOID OVERDOSE. SPRAY 0.1mL IN ONE NOSTRIL. REPEAT IN ALTERNATE NOSTRIL 2-3 MINUTES IF NEEDED. SEEK MEDICAL ATTENTION IMMEDIATELY EVEN IF PATIENT RESPONDS., Disp: 2 each, Rfl: 1 oxyCODONE (Roxicodone) 15 MG immediate release tablet, TAKE 1 TABLET BY MOUTH EVERY 4 HOURS NEEDED FOR SEVERE PAIN FOR UP TO 28 DAYS, Disp: 168 tablet, Rfl: 0 Acetaminophen Extra Strength 500 MG tablet, Take 1 tablet by mouth every 8 (eight) hours if needed., Disp: , Rfl: albuterol (Ventolin HFA) 108 (90 Base) MCG/ACT inhaler, INHALE 2 PUFFS BY MOUTH EVERY 4 HOURS NEEDED FOR WHEEZING OR SHORTNESS OF BREATH, Disp: 18 g, Rfl: 1 Alcohol Swabs (Alcohol Prep) 70 % pads, USE BEFORE INJECTION, Disp: 100 each, Rfl: 2 Aspirin Low Dose 81 MG chewable tablet, Chew 1 tablet Once per day., Disp: , Rfl: atorvastatin (Lipitor) 80 MG tablet, Take 1 tablet by mouth at bedtime., Disp: , Rfl: budesonide-formoterol (Symbicort) 160-4.5 MCG/ACT inhaler, Inhale 2 puffs in the morning and at bedtime. Rinse mouth with water after use to reduce aftertaste and incidence of candidiasis. Do not swallow., Disp: 10.2 g, Rfl: 11 chlorhexidine (Peridex) 0.12 % solution, Swish 15 mL morning and night for 1 minute. Spit, do not swallow. Do not eat or drink for 30 minutes following use., Disp: 473 mL, Rfl: 0 cyclobenzaprine (Flexeril) 10 MG tablet, TAKE 1 TABLET BY MOUTH THREE TIMES DAILY, Disp: 90 tablet,Rfl: 1 diphenhydrAMINE (BENADryl) 25 MG capsule, TAKE 1 CAPSULE BY MOUTH EVERY DAY NEEDED, Disp: 90 capsule, Rfl: 0 docusate sodium (Colace) 100 MG capsule, TAKE 1 CAPSULE BY MOUTH TWICE DAILY NEEDED, Disp: 180 capsule, Rfl: 1 fluticasone (Flonase) 50 MCG/ACT nasal spray, INSTILL 2 SPRAYS IN EACH NOSTRIL ONCE DAILY, Disp: 16g, Rfl: 2 folic acid (Folvite) 1 MG tablet, take 1 tablet by oral route every day, Disp: , Rfl: furosemide (Lasix) 20 MG tablet, TAKE 1 TABLET BY MOUTH EVERY DAY FOR 7 DAYS, Disp: 7 tablet, Rfl: 0 hydrocortisone (Cortef) 10 MG tablet, Take 1 tablet (10 mg) by mouth 2 times daily., Disp: 60 tablet, Rfl: 3 isosorbide mononitrate ER (Imdur) 30 MG 24 hr tablet, TAKE 1 TABLET BY MOUTH EVERY DAY, Disp: 90 tablet, Rfl: 1 Lancets misc, Use to test blood sugar 1 times daily, Disp: 100 each, Rfl: 0 levothyroxine (Synthroid, Levoxyl) 150 MCG tablet, TAKE 1 TABLET BY MOUTH EVERY DAY BEFORE BREAKFAST, Disp: 90 tablet, Rfl: 1 Misc. Devices (Pulse Oximeter) mis, Use daily directed, Disp: 1 each, Rfl: 0 montelukast (Singulair) 10 MG tablet, TAKE 1 TABLET BY MOUTH EVERY DAY IN THE EVENING, Disp: 90 tablet, Rfl: 3 Multiple Vitamin (Multi-Vitamin) tablet, take 1 tablet by oral route every day with food, Disp: , Rfl: nicotine (Nicoderm, Step 1) 21 MG/24HR patch, APPLY 1 PATCH TOPICALLY TO THE SKIN IN THE MORNING *DO NOT SMOKE WHILE USING PATCH*, Disp: 30 patch, Rfl: 1 nitroglycerin (Nitrostat) 0.3 MG SL tablet, Place 1 tablet (0.3 mg) under the tongue every 5 (five)minutes if needed for chest pain., Disp: 90 tablet, Rfl: 12 omeprazole (PriLOSEC) [address] capsule, TAKE 1 CAPSULE BY MOUTH EVERY DAY BEFORE BREAKFAST, DO NOT BREAK, CRUSH, DISSOLVE OR CHEW, Disp: 30 capsule, Rfl: 11 ondansetron (Zofran) 4 MG tablet, TAKE 1 TABLET BY MOUTH EVERY 8 HOURS NEEDED FOR NAUSEA AND VOMITING, Disp: 90 tablet, Rfl: 0 phenytoin ER (Dilantin) 100 MG capsule, TAKE 2 CAPSULES BY MOUTH TWICE A DAY, NEED NEW INSURANCE CARD, Disp: 120 capsule, Rfl: 2 pregabalin (Lyrica) 300 MG capsule, TAKE 1 CAPSULE BY MOUTH TWICE DAILY, Disp: 56 capsule, Rfl: 0 sertraline (Zoloft) 25 MG tablet, TAKE 1 TABLET BY MOUTH EVERY DAY, Disp: 30 tablet, Rfl: 3 topiramate (Topamax) 25 MG tablet, TAKE 1 TABLET BY MOUTH TWICE DAILY IN THE MORNING AND IN THE EVENING, Disp: 60 tablet, Rfl: 3 Umeclidinium [place] (Incruse Ellipta) 62.5 MCG/ACT aerosol powder , Inhale 1 Act (62.5 mcg) Once per day., Disp: 30 Act, Rfl: 11 documented in this encounter Plan of Treatment Upcoming Encounters Date Type Department Care Team (Late st Contact Info) Description 07/19/2025 10:45 AM EST Office Visit [facility] [address] [place] [phone] Name, MD Tone [address] [place] [address] 07/22/2025 1:30 PM EST Telemedicine [facility] [address] [place] [address] Tanya Ellison, RN documented as of this encounter Visit Diagnoses Diagnosis Long-term current use of opiate analgesic Encounter for long-term (current) use of other medications Long-term current use of benzodiazepine documented in this encounter Additional Health Concerns Assessment Noted Time PHQ-9 Depression Total Score: 14 12/31/ 025 1:40 PM EDT documented as of this encounter Care Teams Chief Engineer'S Helper Relationship Specialty Start Date End Date Name, MD Tone [address] [place] [id number] PCP - General Family Medicine 08/17/19 documented as of this encounter
--- NOTE | 2025-05-17 15:12 | A.OFFVIS_ITS ---
Intake Visit Reasons: follow up Intake Note: Patient is present for F/U Urology Medication:NONE Antibiotic Allergy:PENICILLINS,AMOXICILLIN,CIPROFLOXACIN Blood Thinner:ASPIRIN Paperback Machine Operator Required: No Allergies Penicillins (PENICILLINS) Allergy (Severe, Verified 05/17/25 21:14) HIVES amoxicillin (AMOXICILLIN) Allergy (Intermediate, Verified 05/17/25 21:14) HIVES ciprofloxacin (From Cipro) Allergy (Intermediate, Verified 05/17/25 21:14) Hives acetaminophen (From Tylox) Allergy (Unknown, Verified 05/17/25 21:14) Rash, Nausea and Vomiting ibuprofen (From Motrin) Allergy (Unknown, Verified 05/17/25 21:14) Gastrointestinal Upset latex (LATEX) Allergy (Unknown, Verified 05/17/25 21:14) RASH penicillin V Allergy (Unknown, Verified 05/17/25 21:14) rash Medication List - Last Reconciled 05/17/25 by SHELTON Hutchison-ROXY acetaminophen (Tylenol Extra Strength) 1,000 mg PO DAILY PRN albuterol sulfate 2.5 mg inhalation TID PRN albuterol sulfate 90 mcg/actuation 2 puffs inhalation Q6H PRN aspirin 81 mg PO DAILY budesonide-formoterol 160-4.5 mcg/actuation (Symbicort) 2 puffs inhalation BID clonazepam 1 mg PO BID PRN cyclobenzaprine 10 mg PO TID PRN docusate sodium 100 mg PO BEDTIME PRN estradiol 0.01%(0.1mg/gram) Apply a pea-sized amount to urethra daily x1 month and then 3 times per week thereafter 90 days fluticasone propionate 50 mcg/actuation 2 sprays intranasal DAILY furosemide (Lasix) 10 mg PO DAILY heparin (porcine) 4,500 units (0.9 mL) IVPUSH PROTOCOL BOLUS PRN heparin (porcine) 9,100 units (1.82 mL) IVPUSH PROTOCOL BOLUS PRN heparin(porcine) in 0.45% NaCl 25,000 unit/250 mL 25,000 units (250 mL) continuous IV infusion .Q0M hydrocortisone 10 mg BID levothyroxine 150 mcg PO DAILY@0600 loperamide (Anti-Diarrheal (loperamide)) 2 mg PO Q4H PRN meclizine 25 mg PO DAILY multivitamin 1 tab PO DAILY nitrofurantoin macrocrystal 100 mg PO BID 10 days nitroglycerin (Nitrostat) 0.4 mg sublingual Q5MX3 PRN nitroglycerin 0.3 mg sublingual Q5M PRN omeprazole 40 mg PO DAILY oxycodone 15 mg PO Q4H PRN phenytoin sodium extended 200 mg PO BID pregabalin 300 mg PO BID simvastatin 20 mg PO DAILY tiotropium bromide (Spiriva with HandiHaler) 1 cap inhalation DAILY topiramate 25 mg PO BID vit C-zinc citrate-elderberry 45-3.75-50 mg (NeurOptics) 1 tab PO DAILY HPI Comments Details: Annie is a 64 year old female patient of Dr. Cool who was accompanied by her significant other at today's office visit. She has a past medical history of overactive bladder, urinary retention, migraines, seizures, sleep apnea, fibromyalgia, hypertension, hyperthyroidism, COPD, and asthma. She presents to the office today for follow-up of her overactive bladder. In discussion with the patient today she reports over the last 2-3 months she has been taking phtj-[id number] azo and Pyridium for ongoing lower urinary tract she has been experiencing. She reports feeling mild improvement in incomplete bladder emptying, urinary urgency, and urinary frequency. In office urinalysis results reviewed with the patient today positive nitrates. We did discussed potential for urinary tract infection given lower urinary tract symptoms. However patient does have a longstanding history of an overactive bladder and has been on Gemtesa that she does feel has improved her symptoms however still finds symptoms are bothersome. She continues to experience episodes of urinary urgency, urinary frequency, and mixed urinary incontinence. She does discuss worsening lower urinary tract symptoms after consumption of diuretic. We did discuss correlation of lower urinary tract symptoms with diuretic. We also discussed the importance of following up as planned as patient has not followed up in over 2 years. She denies hematuria, changes to urinary stream, flank pain, fever, and or chills. Patient with recent CT imaging that noted no acute findings. We did discuss further treatment options of lower urinary tract symptoms as well as urinary tract infections. All questions were answered. She otherwise offers no other issues or concerns at this time. [facility] Medical History Overactive bladder Urinary retention Migraines Seizure Sleep apnea Fibromyalgia HTN (hypertension) Hyperthyroidism COPD (chronic obstructive pulmonary disease) Asthma Surgical History Hx of hysterectomy Hx of tubal ligation Hx of section Family History Mother Diabetes HTN (hypertension) Heart failure Maternal Aunt Breast cancer Maternal Grandmother Breast cancer Social History Alcohol intake: never Patient Tobacco Use Status: Current everyday Tobacco user Cigarettes Per Day: 10 Years Smoked: 30 Substance Use Type: Prescription Drugs service: No Review of Systems Eyes Reports no additional complaints ENT Reports no additional complaints Card Reports as per HPI Resp Reports as per HPI GI Reports no additional complaints Reports as per HPI Musc Reports as per HPI Neuro Reports as per HPI Psych Reports no additional complaints Endo Reports as per HPI Physical Exam Const General: cooperative, comfortable, no acute distress, well developed, alert and awake Nutritional Appearance: overweight Orientation/consciousness: patient oriented x3 Limitations: ambulation with cane HEENT Head: Yes normal to inspection, Yes normocephalic and Yes atraumatic Ears: hearing grossly normal bilaterally Eyes General: appearance normal, both eyes and all related structures Neck Neck: Yes normal visual inspection and Yes trachea midline Chest Chest palpation & inspection: normal inspection of the chest Resp Effort & Inspection: normal respiratory effort and able to speak in complete sentences Cardio Rate: regular rate GI Inspection: Yes normal to inspection General: Yes no CVA tenderness Back/Spine/Pelvis Back: no CVA tenderness Skin General skin exam: no rashes or lesions noted Neuro General: patient oriented x3 Extrem General: Yes normal to inspection Psych Appearance: grossly normal and well kempt Mental Status: mental status grossly normal Speech and movement: Normal speech and movement present and Clear speech present Affect: normal affect Attitude: cooperative Thought process: Normal thought process present Thought content: Normal thought content present Insight: Fair insight present (Psych) Judgement: Fair judgement present (Psych) Results AMB Urinalysis, Automated UA Leukoctes 15 Corey/uL Last Edit by SILVANO Knight on 05/17/25 16:03 UA Nitrite Positive Last Edit by SILVANO Knight on 05/17/25 16:03 UA Urobilinogen 0.2 mg/dL Last Edit by SILVANO Knight on 05/17/25 16:0 3 UA Protein 15 mg/dL Last Edit by [facility] on 05/17/[facility] 16:03 UA pH 6.0 Last Edit by Brian Cihno [facility] on 05/17/25 16:03 UA Blood 0 Mando/uL Last Edit by Brian Chino [facility] on 05/17/25 16:03 UA Specific Hendricks 1.015 Last Edit by Brian Chino [facility] on 05/17/25 16: 03 UA Ketone Negative Last Edit by Brian Chino [facility] on 05/17/25 16:03 UA Bilirubin 0 mg/dL Last Edit by Brian Chino [facility] on 05/17/25 16:03 UA Glucose 0 mg/dL Last Edit by Brian Chino [facility] on 05/17/25 16:03 Results Reviewed Results Reviewed: Laboratory Last Values Urine pH (Auto) 6.0 05/17/25 16:02 Specific Hendricks (Auto) 1.015 05/17/25 16:02 Urine Protein (Auto) 15 mg/dL 05/17/25 16:02 Glucose (UA)(Auto) 0 mg/dL 05/17/25 16:02 Urine Ketones (Auto) Negative 05/17/25 16:02 Urine Blood (Auto) 0 Mando/uL 05/17/25 16:02 Urine Nitrite (Auto) Positive 05/17/25 16:02 Urine Bilirubin (Auto) 0 mg/dL 05/17/25 16:02 Urine Urobilinogen (Auto) 0.2 mg/dL 05/17/25 16:02 Leukocyte Esterase (Auto) 15 Corey/uL 05/17/25 16:02 Date of Service: 09/10/24 Procedure(s): CT abdomen pelvis wo IV con Findings: The lung bases are clear. There is a sliding-type hiatal hernia. The gallbladder and solid organs are within normal limits. No renal stones. No bowel obstruction, pneumoperitoneum, or pneumatosis. There are diverticuli scattered throughout the colon, without evidence of diverticulitis Pelvic contents unremarkable. Normal appendix. The bones are intact. IMPRESSION: No acute findings. Assessment & Plan Assessment & Plan (1) Overactive bladder: Code(s): N32.81 - Overactive bladder Category: Medical (2) Urinary tract infection: Code(s): N39.0 - Urinary tract infection, site not specified Category: Medical (3) Urinary incontinence, mixed: Code(s): N39.46 - Mixed incontinence Category: Medical Plan In office urinalysis results reviewed with the patient today; as noted above; will send for urine culture. Recent CT results reviewed with the patient today; as noted above. Start Macrobid as discussed and prescribed. We did discussed further treatment options of lower urinary tract symptoms as well as urinary tract infections in risks and benefits of these treatment options. Start Estrace cream as discussed and prescribed. We discussed correlation of bowel issues with lower urinary tract symptoms. Discussed UTI prevention with D mannose supplement, vitamin-C, increasing fluid intake, behavioral therapy with timed voiding, perineal hygiene and postcoital voiding, and management of constipation with stool softeners and increased fiber intake. All questions were answered. We discussed the importance of following up as planned. Will schedule for in office urodynamics Follow-up per doctor's orders; or sooner with any issues, concerns, and or questions. Orders: Orders AMB Urinalysis Automated Today Z13.9 - Encounter for screening, unspecified Urine Culture Today N39.0 - Urinary tract infection, site not specified Medications: New nitrofurantoin macrocrystal must administer with a meal/food 100 mg PO BID 20 caps 0RF 10 days N39.0 - Urinary tract infection, site not specified estradiol 0.01%(0.1mg/gram) Apply a pea-sized amount to urethra daily x1 month and then 3 times per week thereafter 42.5 grams 3RF 90 days R32 - Unspecified urinary incontinence Patient Instructions: The patient had an opportunity to ask questions regarding the treatment plan. All questions were answered. Physical exam, labs, and imaging were discussed and reviewed in detail. As well as risks, benefits, and discussion of treatment choices. No major barriers to understanding were identified. The patient expressed understanding and agreement with the above treatment plan. The patient was made aware they should contact our office by phone for worsening of their current condition, the appearance of new symptoms, or with any questions or concerns. Compliance is encouraged with any medications and follow up testing that is ordered. It is a privilege to be allowed the opportunity to participate in? your urological care.? Again, if you have any questions or concerns If you have any questions or concerns please do not hesitate to contact me. The office is [phone]. This note is constructed using voice recognition software. While every effort has been made to ensure accuracy tractor trailer operator errors may have been included. Yours sincerely, FRED Hutchison Coding Level of Care Code Est Pt Level 4 (45406) Complex EM visit Add On G2211 Diagnoses Overactive bladder N32.81 Urinary tract infection N39.0 Urinary incontinence, mixed N39.46
--- OUTSIDE RECORDS SUMMARY | 2025-05-17 17:31 | XMS_ITS | Encounter Summary ---
Author Organization [employer] Address [address] [facility] [address] [place] [address] Care Team Providers Care Tobacco Farmworker Name Role Phone Name, Tone SEPULVEDA Primary Care Provider [phone] Reason for Visit * Reason Onset Date Comments Prior Authorization 08/11/2023 clonazePAM Encounter Details Date Type Department Care Team ([facility] st Contact Info) Description 08/11/2023 Telephone [facility] [address] [place] [address] Name, MD Tone [address] [place] [address] Prior Authorization (clonazePAM) Social History Tobacco Use [...] t he electric, gas, oil or water [employer] threatened to shut off services in your [...] Description 07/19/2025 10:45 AM EST Office Visit [address] [address] Name, MD Tone [address] [place] [phone] 07/22/2025 1:30 PM EST Telemedicine [facility] [address] [place] [phone] Tanya Ellison, SHUBHAM documented as of this encounter Visit Diagnoses Not on filedocumented in this encounter Additional Health Concerns Assessment Noted Time PHQ-9 Depression Total Score: 0 12/26/19 23 1:52 PM EDT documented as of this encounter Care Teams Tobacco Farmworker Relationship Specialty Start Date End Date Name, MD Tone [address] [place] [phone] PCP - General Family Medicine 08/17/19 Annie HERNANDEZ 02/16/25 04/18/25 documented as of this encounter
--- OUTSIDE RECORDS SUMMARY | 2025-05-17 17:31 | XMS_ITS | Encounter Summary ---
Author Organization [employer] [facility] Address [address] [facility] 7 [place] [address] Care Team Providers Care Logistics Program Manager Name Role Phone Name, Tone SEPULVEDA Primary Care Provider [phone] Reason for Visit * Reason Comments Med Refill Encounter Details Date Type Department Care Team (Late Contact Info) Description 11/04/2022 Refill [facility] [address] [place] [address] [phone] NameTone MD [address] [place] [address] [phone] Anxiety disorder, unspecified Social History Tobacco Use [...] Department Care Team (Late Contact Info) Description 07/19/2025 10:45 AM EST Office Visit [facility] [address] [place] [address] [phone] NameTone MD [address] [place] [address] [phone] 07/22/2025 1:30 PM EST Telemedicine [facility] [address] [place] [address] Tanya Ellison RN documented as of this encounter Visit Diagnoses Diagnosis Anxiety disorder, unspecified documented in this encounter Care Teams Logistics Program Manager Relationship Specialty Start Date End Date Name, MD Tone [address] [place] [address] PCP - General Family Medicine 08/17/19 [facility] 04/18/25 documented as of this encounter
--- OUTSIDE RECORDS SUMMARY | 2025-05-17 17:31 | XMS_ITS | Encounter Summary ---
Author Organization [employer] Address [address] [facility] 7t [place] [address] Care Team Providers Care Collator Operator Name Role Phone Name, Tone SEPULVEDA Primary Care Provider [phone] Reason for Visit * Reason Onset Date Comments Lab Orders 03/19/2024 Encounter Details Date Type Department Care Team ([facility] st Contact Info) Description 03/19/2024 Telephone [facility] [address] [place] [address] Name, MD Tone [address] [place] [address] Lab Orders Social History Tobacco Use Types [...] 07/19/2025 10:45 AM EST Office Visit [address] [address] Name, MD Tone [address] [place] [address] 07/22/2025 1:30 PM EST Telemedicine [address] [address] Tanya Ellison RN documented as of this encounter Visit Diagnoses Not on filedocumented in this encounter Additional Health Concerns Assessment Noted Time PHQ-9 Depression Total Score: 11 024 2:10 PM EDT documented as of this encounter Care Teams Collator Operator Relationship Specialty Start Date End Date Name, MD Tone [address] [place] [address] PCP - General Family Medicine 08/17/19 Annie SETHIA 02/16/25 04/18/25 documented as of this encounter
--- OUTSIDE RECORDS SUMMARY | 2025-05-17 17:31 | XMS_ITS | Encounter Summary ---
Author Organization [employer] Address 75 [facility] 7t [place] [address] Care Team Providers Care Faith Healer Name Role Phone Name, Tone SEPULVEDA Primary Care Provider [phone] Reason for Visit * Reason Onset Date Comments Referral 08/14/2023 Encounter Details Date Type Department Care Team ([facility] st Contact Info) Description 08/14/2023 Telephone [facility] [address] [place] [address] Name, MD Tone [address] [place], [place] [phone] Referral Social History Tobacco Use Types Packs/Day [...] No answer. Lvm to call back on [phone]. Please review and advise if needed. * Telephone Encounter - Toni Galdamez - 08/14/2023 3:22 PM EST Tc from James at [facility] requesting referrals for Nursing, Occupational Therapy and Medication Management any questions please call James at documented in this encounter Plan of Treatment Upcoming Encounters Date Type Department Care Team (Late st Contact Info) Description 07/19/2025 10:45 AM EST Office Visit [facility] [address] [place] [address] Name, MD Tone [address] [place] [address] 07/22/2025 1:30 PM EST Telemedicine [facility] [address] [place] [address] Tanya Ellison RN documented as of this encounter Visit Diagnoses Not on filedocumented in this encounter Additional Health Concerns Assessment Noted Time PHQ-9 Depression Total Score: 0 12/26/19 23 1:52 PM EDT documented as of this encounter Care Teams Faith Healer Relationship Specialty Start Date End Date Name, MD Tone [address] [place] [address] PCP - General Family Medicine 08/17/19 Annie HERNANDEZ 02/16/25 04/18/25 documented as of this encounter
--- OUTSIDE RECORDS SUMMARY | 2025-05-17 17:31 | XMS_ITS | Encounter Summary ---
Author Organization [employer] Address 75 [facility] 7t [place] [address] Care Team Providers Care Roaster Supervisor Name Role Phone Name, Tone SEPULVEDA Primary Care Provider [phone] Reason for Visit * Reason Onset Date Comments ER Follow-up 08/11/2023 Encounter Details Date Type Department Care Team ([facility] st Contact Info) Description 08/11/2023 Telephone [facility]INE [address] [place] [address] Name, MD Tone [address] [place] [address] ER Follow-up Social History Tobacco Use Types [...] the past 12 months, has t he [employer], [employer], oil or water [employer] threatened to shut off services in your [...] report ED visit on 08/04/2023 [facility]. Seen for two times fall. Patient advised will forward to team nurse for follow up. documented in this encounter Plan of Treatment Upcoming Encounters Date Type Department Care Team (Late st Contact Info) Description 07/19/2025 10:45 AM EST Office Visit [facility] [address] [place] [address] Name, MD Tone [address] [place] [address] 07/22/2025 1:30 PM EST Telemedicine [facility] [address] [place] [address] Tanya Ellison, SHUBHAM documented as of this encounter Visit Diagnoses Not on filedocumented in this encounter Additional Health Concerns Assessment Noted Time PHQ-9 Depression Total Score: 0 12/26/19 23 1:52 PM EDT documented as of this encounter Care Teams Roaster Supervisor Relationship Specialty Start Date End Date Name, MD Tone [address] [place] [address] PCP - General Family Medicine 08/17/19 [facility] 02/16/25 04/18/25 documented as of this encounter
--- OUTSIDE RECORDS SUMMARY | 2025-05-17 17:31 | XMS_ITS | Encounter Summary ---
Author Organization [employer] Address [address] [facility] 7t [place] [address] Care Team Providers Care Aeronautical Drafter Name Role Phone Name, Tone SEPULVEDA Primary Care Provider [phone] Reason for Visit * Reason Comments Med Refill Encounter Details Date Type Department Care Team ([facility] Contact Info) Description 11/15/2022 Refill [facility] [address] [place], [place] [phone] [facility] [address] [place], [place] [phone] Social History Tobacco Use Types Packs/Day Years [...] Upcoming Encounters Date Type Department Care Team ([facility] Contact Info) Description 07/19/2025 10:45 AM EST Office Visit [facility] MEDICINE [address] [place] [address] [phone] Name, MD Tone [address] [place] [phone] 07/22/2025 1:30 PM EST Telemedicine [facility] MEDICINE 230 [place] [address] Tanya Ellison RN documented as of this encounter Visit Diagnoses Not on filedocumented in this encounter Care Teams Aeronautical Drafter Relationship Specialty Start Date End Date Name, MD Tone [address] [place] [address] PCP - General Family Medicine 08/17/19 [facility] 02/16[facility]25 04/18/25 documented as of this encounter
--- OUTSIDE RECORDS SUMMARY | 2025-05-17 17:31 | XMS_ITS | Encounter Summary ---
Author Organization [employer] Address [address] [facility] 7t [place] [address] Care Team Providers Care Marketing Forecaster Name Role Phone Name, Tone SEPULVEDA Primary Care Provider Reason for Visit * Reason Onset Date Comments FYI 08/11/2023 Encounter Details Date Type Department Care Team ([facility] st Contact Info) Description 08/11/2023 Telephone [facility] [address] [place] [address] Name, MD Tone [address] [place] [address] FYI Social History Tobacco Use Types Packs/Day [...] - 08/11/2023 9:19 AM EST [facility] calling to advise PCP pt will be admitted tomorrow (08/12) for PT services. documented in this encounter Plan of Treatment Upcoming Encounters Date Type Department Care Team (Late st Contact Info) Description 07/19/2025 10:45 AM EST Office Visit [facility] [address] [place] [address] Name, MD Tone [address] [place] [address] 07/22/2025 1:30 PM EST Telemedicine [facility] [address] [place] [address] Tanya Ellison, RN documented as of this encounter Visit Diagnoses Not on filedocumented in this encounter Additional Health Concerns Assessment Noted Time PHQ-9 Depression Total Score: 0 12/26/19 23 1:52 PM EDT documented as of this encounter Care Teams Marketing Forecaster Relationship Specialty Start Date End Date Name, MD Tone [address] [place] [address] PCP - General Family Medicine 08/17/19 Annie HERNANDEZ 02/16/25 04/18/25 documented as of this encounter
--- OUTSIDE RECORDS SUMMARY | 2025-05-17 17:32 | XMS_ITS | Encounter Summary ---
Author Organization [employer] Address [address] [facility] 7t [place] [address] Care Team Providers Care Civil Clerk Name Role Phone Name, Tone SEPULVEDA Primary Care Provider [phone] Reason for Visit * Reason Onset Date Comments Med Refill 12/03/2022 Encounter Details Date Type Department Care Team ([facility] st Contact Info) Description 12/03/2022 Telephone [facility] 230 [place], [place] [phone] Name, MD Tone [address] [place] [address] Med Refill Social History Tobacco Use Types [...] 3:35 PM EDT Medication was sent to [facility] on 11/28/22. * Telephone Encounter - Sherri Cummings - 12/03/2022 3:26 PM EDT Tc from pt requesting med refill on pregabalin (Lyrica) 300 MG capsule Please sent to [facility] - [place], [place] - [address] [place] [address] documented in this encounter Plan of Treatment Upcoming Encounters Date Type Department Care Team (Late st Contact Info) Description 07/19/2025 10:45 AM EST Office Visit [address] [address] Name, MD Tone [address] [place] [address] 07/22/2025 1:30 PM EST Telemedicine [address] [address] Tanya Ellison, SHUBHAM documented as of this encounter Visit Diagnoses Not on filedocumented in this encounter Care Teams Civil Clerk Relationship Specialty Start Date End Date Name, MD Tone [address] [place] [address] PCP - General Family Medicine 08[facility]17[facility] 04/18/25 documented as of this encounter
--- OUTSIDE RECORDS SUMMARY | 2025-05-17 17:32 | XMS_ITS | Encounter Summary ---
Author Organization [employer] Address 75 [facility] 7 [place] [address] Care Team Providers Care Enrichment Assistant Name Role Phone Name, Tone SEPULVEDA Primary Care Provider [phone] Reason for Visit * Reason Comments Med Refill Encounter Details Date Type Department Care Team ([facility] st Contact Info) Description 03/26/2023 Refill [facility] MEDICINE 230 [place], [place] [phone] Name, MD Tone [address] [place] [address] Social History Tobacco Use Types Packs/Day Years [...] Description 07/19/2025 10:45 AM EST Office Visit [address] [address] Name, MD Tone [address] [place] [address] 07/22/2025 1:30 PM EST Telemedicine [address] [address] Tanya Ellison RN documented as of this encounter Visit Diagnoses Not on filedocumented in this encounter Additional Health Concerns Assessment Noted Time PHQ-9 Depression Total Score: 0 12/26/19 23 1:52 PM EDT documented as of this encounter Care Teams Enrichment Assistant Relationship Specialty Start Date End Date Name, MD Tone [address] [place] [address] PCP - General Family Medicine 08/17/19 Annie SETHIA 02/16/25 04/18/25 documented as of this encounter
--- OUTSIDE RECORDS SUMMARY | 2025-05-17 17:32 | XMS_ITS | Encounter Summary ---
Author Organization [employer] Address [address] [facility] 7t [place] [address] Care Team Providers Care Stationary Engineer Name Role Phone Name, Tone SEPULVEDA Primary Care Provider [phone] Reason for Visit * Reason Onset Date Comments requesting call back 11/22/2022 Encounter Details Date Type Department Care Team ([facility] st Contact Info) Description 11/22/2022 Telephone [facility] MED[facility]INE [address] [place] [address] Name, MD Tone [address] [place] [address] requesting call back Social History Tobacco Use [...] 11/22/2022 12:33 PM EDT FYI: Pt had [employer]. UTO[employer] pos BAR, sending out for confirmation. * Telephone Encounter - Sherri Cummings - 11/22/2022 12:16 PM EDT Tc from pt requesting call from you to inform you something important that ask over pt appt. Please contact pt at [phone] documented in this encounter Plan of Treatment Upcoming Encounters Date Type Department Care Team (Late st Contact Info) Description 07/19/2025 10:45 AM EST Office Visit [address] [address] Name, MD Tone [address] [place] [address] 07/22/2025 1:30 PM EST Telemedicine [address] [address] Tanya Ellison RN documented as of this encounter Visit Diagnoses Not on filedocumented in this encounter Care Teams Stationary Engineer Relationship Specialty Start Date End Date Name, MD Tone [address] [place] [address] PCP - General Family Medicine 08/17/19 Annie SETHIA 02/16/25 04/18/25 documented as of this encounter
--- OUTSIDE RECORDS SUMMARY | 2025-05-17 17:32 | XMS_ITS | Encounter Summary ---
Author Organization [employer] Address [address] [facility] [address] 7t [place] [address] Care Team Providers Care Curriculum Counselor Name Role Phone Name, Tone SEPULVEDA Primary Care Provider [phone] Encounter Details Date Type Department Care Team ([facility] st Contact Info) Description 08/11/2024 Telephone [facility] [address] [place] [address] Name, MD Tone [address] [place] [address] Social History Tobacco Use Types Packs/Day Years [...] Description 07/19/2025 10:45 AM EST Office Visit [address] [address] Name, MD Tone [address] [place] [address] 07/22/2025 1:30 PM EST Telemedicine [address] [address] Tanya Ellison, SHUBHAM documented as of this encounter Visit Diagnoses Not on filedocumented in this encounter Additional Health Concerns Assessment Noted Time PHQ-9 Depression Total Score: 11 024 2:10 PM EDT documented as of this encounter Care Teams Curriculum Counselor Relationship Specialty Start Date End Date NameTone MD [address] [place] [address] PCP - General Family Medicine 08/17/19 Annie SETHIA 02/16/25 04/18/25 documented as of this encounter
--- OUTSIDE RECORDS SUMMARY | 2025-05-17 17:32 | XMS_ITS | Encounter Summary ---
Author Organization [employer] Address [address] [facility] 7t [place] [address] Care Team Providers Care Deli Worker Name Role Phone Name, Tone SEPULVEDA Primary Care Provider [phone] Encounter Details Date Type Department Care Team (Late Contact Info) Description 09/16/2022 Orders Only [facility] [address] [place] [address] Viola Gamino LPN Social History Tobacco Use [...] Description 07/19/2025 10:45 AM EST Office Visit [address] [phone] Name, MD Tone [address] [place] [phone] 07/22/2025 1:30 PM EST Telemedicine [address] [phone] Tanya Ellison RN documented as of this encounter Procedures Procedure [...] SENSITIVITY TROPONIN I (10/14/2022 12:22 PM EST) [facility] TROPONIN I HIGH SENSITIVITY <3.5 <3.5 - 17.0 ng/L [facility] Comment:The Felder high sens itivity Troponin-I results should beused in conjunction with other diagnostic information suchas ECG, clinical observations and information, and patientsymptoms to aid in the diagnosis of [place]. 10/14/2022 12:2 2 PM EST 10/14/2022 12:32 PM EST [facility] External Provider LAB BLO OD ORDERABLES Final Result Performing Organization Address [facility] Co de Phone Number [facility] [address] [place] [phone] * B Type Natriuretic Peptide (BNP) (10/14/2022 12:22 PM EST) [facility] B Type Natriuretic Peptide 42 <100 pg/mL [facility] Comment:For those patients w ho are being treated with Natrecor(nesiritide, recombinant BNP), BNP testing should beperformed at least two hours post treatment in order toensure that only endogenous levels of BNP are detected. 10/14/2022 12:2 2 PM EST 10/14/2022 12:32 PM EST [facility] External Provider LAB BLO OD ORDERABLES Final Result Performing Organization Address [facility] Co de Phone Number [facility] [address] [place] [address] [phone] * (ABNORMAL) Comprehensive Metabolic Panel (10/14/2022 12:22 PM EST) [facility] Sodium 140 135 - 145 mmol/L [facility] Potassium 4.2 3.3 - 5.1 mmol/L [facility] Chloride 106 96 - 108 mmol/L [facility] Carbon Dioxide 25 22 - 29 mmol/L [facility] Anion Gap 13 12 - 20 [facility] Urea Nitrogen (BUN) 10 9 - 16 mg/dL [facility] Creatinine, Serum 0.67 0.5 - 1.4 mg/dL [facility] Creatinine Clr Calc Pharmacy 106.8 [facility] Comment:Provided height and weight: 167.64 cm,107.955 kg.eGFR (calculated from the MDRD study equation) and eCrCl(calculated from the Cockcroft-Gault equation) are based ondifferent parameters and may not yield comparable results.If eCrCl result is absurd, please check patient'sheight/weight. Estimated Glomerular Filt Rate >60 [facility] Comment:NOTE: For -Am erican individuals, multiply the result by 1.210.Chronic Kidney Disease: Estimated GFR < 60 mL/min/[id number] Kidney Disease: Estimated GFR < 15 mL/min/1.73m2 Glucose 107 60 - 115 mg/dL [facility] Calcium 10.0 8.4 - 10.2 mg/dL [facility] Bilirubin, Total 0.3 0.0 - 1.0 mg/dL [facility] Aspartate Amino Transferase 18 5 - 31 U/L [facility] Alanine Aminotransferase 20 0 - 31 U/L [facility] Total Protein 7.3 6.5 - 8.0 g/dL [facility] Albumin Level 4.6 3.5 - 5.0 g/dL [facility] Alkaline Phosphatase 143(H) 39 - 117 U/L [facility] 10/14/2022 12:2 2 PM EST 10/14/2022 12:32 PM EST [facility] External Provider LAB BLO OD ORDERABLES Final Result [facility] [address] [place] [address] [phone] * (ABNORMAL) APTT (10/14/2022 12:22 PM EST) Partial Thromboplastin Time 38.4(H) 26.0 - 36.4 SEC [facility] 10/14/2022 12:2 2 PM EST 10/14/2022 12:32 PM EST [facility] External Provider LAB BLO OD ORDERABLES Final Result Performing Organization Address [facility] Co de Phone Number [facility] [address] [place] [address] [phone] * Prothrombin Time-INR (10/14/2022 12:22 PM EST) Prothrombin Time 10.8 10.0 - 13.1 SEC [facility] INTERNATIONAL NORM RATIO 0.9 0.9 - 1.1 [facility] Comment:INTERNATIONAL NORMAL IZED RATIO (INR) REFERENCE [...] 2 PM EST 10/14/2022 12:32 PM EST [facility] External Provider LAB BLO OD ORDERABLES Final Result Performing Organization Address [facility] de Phone Number [facility] [address] [place] [address] [phone] * (ABNORMAL) CBC auto differential (10/14/2022 12:22 PM EST) White Blood Count 6.8 4.8 - 10.8 X10*3/uL [facility] Red Blood Count 5.37 4.20 - 5.50 X10*6/uL [facility] Hemoglobin 15.1 12.0 - 16.0 g/dl [facility] Hematocrit 47.0 37.0 - 47.0 % [facility] Mean Corpuscular Volume 87.5 80.0 - 98.0 fL [facility] Mean Corpuscular Hemoglobin 28.1 27.0 - 33.0 pg [facility] Mean Corpuscular HGB Conc 32.1 31.0 - 35.0 g/dl [facility] Red Cell Distribution Width 12.8 11.0 - 16.0 % [facility] Platelet Count 310 160 - 400 X10*3/uL [facility] Mean Platelet Volume 10.0 9.4 - 12.3 [facility] Neutrophils Percent Auto 74.1(H) 45 - 73 % [facility] Imm Gran Pct Auto 0.1 0.0 - 0.4 % [facility] Lymphocytes Percent Auto 18.9(L) 20 - 40 % [facility] Monocytes Percent Auto 4.1 2 - 11 % [facility] Eosinophils Percent Auto 1.6 0 - 4 % [facility] Basophils Percent Auto 1.2 0 - 2 % [facility] NRBC Pct Auto 0.0 0.0 - 0.2 /100WBC [facility] Neutrophils Absolute Auto 5.0 2.0 - 8.3 x10*3/uL [facility] Imm Gran Abs Auto 0.01 0.00 - 0.03 X10*3/uL [facility] Lymphocytes Absolute Auto 1.3 1.2 - 4.9 X10*3/uL [facility] Monocytes Absolute Auto 0.3 0.1 - 1.2 X10*3/uL [facility] Eosinophils Absolute Auto 0.1 0.0 - 0.4 X10*3/uL [facility] Basophils Absolute Auto 0.1 0.0 - 0.2 X10*3/uL [facility] NRBC Abs Auto 0.000 0.0 - 0.012 X10*3/uL [facility] 10/14/2022 12:2 2 PM EST 10/14/2022 12:32 PM EST [facility] External Provider LAB BLO OD ORDERABLES Final Result [facility] [address] [place] [address] [phone] * HIGH SENSITIVITY TROPONIN I (10/08/2022 5:21 PM EST) [facility] TROPONIN I HIGH SENSITIVITY <3.5 <3.5 - 17.0 ng/L [facility] Comment:The Felder high sens itivity Troponin-I results should beused in conjunction with other diagnostic information suchas ECG, clinical observations and information, and patientsymptoms to aid in the diagnosis of [place]. 10/08/2022 5:2 1 PM EST 10/08/2022 5:25 PM EST [facility] External Provider LAB BLO OD ORDERABLES Final Result Performing Organization Address [facility] [address] [place] [address] [phone] * Creatine Kinase, Total (10/08/2022 5:21 PM EST) [facility] Creatine Kinase Total 70 26 - 140 U/L [facility] 10/08/2022 5:21 PM EST 10/08/2022 5:25 PM EST [facility] External Provider LAB BLO OD ORDERABLES Final Result Performing Organization Address [facility] Phone Number [facility] [address] [place] [address] [phone] * (ABNORMAL) Basic Metabolic Panel (10/08/2022 5:21 PM EST) [facility] Sodium 142 135 - 145 mmol/L [facility] Potassium 4.0 3.3 - 5.1 mmol/L [facility] Comment:Slight Hemolysis Chloride 106 96 - 108 mmol/L [facility] Carbon Dioxide 28 22 - 29 mmol/L [facility] Anion Gap 12 12 - 20 [facility] Urea Nitrogen (BUN) 8(L) 9 - 16 mg/dL [facility] Creatinine, Serum 0.65 0.5 - 1.4 mg/dL [facility] Creatinine Clr Calc Pharmacy 110.6 [facility] Comment:Provided height and weight: 167.64 cm,108.862 kg.eGFR (calculated from the MDRD study equation) and eCrCl(calculated from the Cockcroft-Gault equation) are based ondifferent parameters and may not yield comparable results.If eCrCl result is absurd, please check patient'sheight/weight. Estimated Glomerular Filt Rate >60 [facility] Comment:NOTE: For -Am erican individuals, multiply the result by 1.210.Chronic Kidney Disease: Estimated GFR < 60 mL/min/1.95t8Rwbfen Kidney Disease: Estimated GFR < 15 mL/min/1.73m2 Glucose 104 60 - 115 mg/dL [facility] Calcium 9.4 8.4 - 10.2 mg/dL [facility] 10/08/2022 5:21 PM EST 10/08/2022 5:25 PM EST us [facility] External Provider LAB BLO OD ORDERABLES Final Result [facility] [address] [place] [address] [phone] * CBC auto differential (10/08/2022 5:21 PM EST) White Blood Count 7.3 4.8 - 10.8 X10*3/uL [facility] Red Blood Count 4.70 4.20 - 5.50 X10*6/uL [facility] Hemoglobin 13.5 12.0 - 16.0 g/dl [facility] Hematocrit 42.4 37.0 - 47.0 % [facility] Mean Corpuscular Volume 90.2 80.0 - 98.0 fL [facility] Mean Corpuscular Hemoglobin 28.7 27.0 - 33.0 pg [facility] Mean Corpuscular HGB Conc 31.8 31.0 - 35.0 g/dl [facility] Red Cell Distribution Width 13.1 11.0 - 16.0 % [facility] Platelet Count 298 160 - 400 X10*3/uL [facility] Mean Platelet Volume 10.2 9.4 - 12.3 fL [facility] Neutrophils Percent Auto 64.4 45 - 73 % [facility] Imm Gran Pct Auto 0.4 0.0 - 0.4 % [facility] Lymphocytes Percent Auto 24.7 20 - 40 % [facility] Monocytes Percent Auto 7.4 2 - 11 % [facility] Eosinophils Percent Auto 2.1 0 - 4 % [facility] Basophils Percent Auto 1.0 0 - 2 % [facility] NRBC Pct Auto 0.0 0.0 - 0.2 /100WBC [facility] Neutrophils Absolute Auto 4.7 2.0 - 8.3 x10*3/uL [facility] Imm Gran Abs Auto 0.03 0.00 - 0.03 X10*3/uL [facility] Lymphocytes Absolute Auto 1.8 1.2 - 4.9 X10*3/uL [facility] Monocytes Absolute Auto 0.5 0.1 - 1.2 X10*3/uL [facility] Eosinophils Absolute Auto 0.2 0.0 - 0.4 X10*3/uL [facility] Basophils Absolute Auto 0.1 0.0 - 0.2 X10*3/uL [facility] NRBC Abs Auto 0.000 0.0 - 0.012 X10*3/uL [facility] 10/08/2022 5:21 PM EST 10/08/2022 5:25 PM EST us [facility] External Provider LAB BLO OD ORDERABLES Final Result [facility] [address] [place] [address] [phone] * SARS-CoV-2 RNA, Influenza A/B, and RSV RNA, Ql NAAT (09/24/2022 12:31 PM EST) Influenza A PCR NEGATIVE Negative [facility] Influenza B PCR NEGATIVE Negative [facility] Resp Syncy Virus RNA Qual PCR NEGATIVE Negative [facility] SARS COV2 PCR NEGATIVE Negative [facility] SARS/Flu/RSV Note See Note [facility] Comment:All test results mus t be [...] use by authorized laboratories.Testing performed on the [employer] GeneXpert utilizingreal-time RT-PCR.All SARS CoV2 and positive influenza A/B results arereported to [facility]. 09/24/2022 12:3 1 PM EST 09/24/2022 12:39 PM EST [facility] Exter nal Provider LAB MICROBIOLOGY - GENERAL ORDERABLES Final Result Performing Organization Address City/[facility] Co de Phone Number [facility] [address] [place] [address] [phone] * HIGH SENSITIVITY TROPONIN I (09/24/2022 12:31 PM EST) Pathologist [facility] TROPONIN I HIGH SENSITIVITY <3.5 <3.5 - 17.0 ng/L [facility] Comment:The Felder high sens itivity Troponin-I results should beused in conjunction with other diagnostic information suchas ECG, clinical observations and information, and patientsymptoms to aid in the diagnosis of [place]. 09/24/2022 12:3 1 PM EST 09/24/2022 12:39 PM EST [facility] External Provider LAB BLO OD ORDERABLES Final Result Performing Organization Address City/State/[facility] Co de Phone Number [facility] [address] [place] [address] [phone] * B Type Natriuretic Peptide (BNP) (09/24/2022 12:31 PM EST) B Type Natriuretic Peptide 20 <100 pg/mL [facility] Comment:For those patients w ho are being treated with Natrecor(nesiritide, recombinant BNP), BNP testing should beperformed at least two hours post treatment in order toensure that only endogenous levels of BNP are detected. 09/24/2022 12:3 1 PM EST 09/24/2022 12:39 PM EST [facility] External Provider LAB BLO OD ORDERABLES Final Result Performing Organization Address [facility] de Phone Number [facility] [address] [place] [address] [phone] * (ABNORMAL) Comprehensive Metabolic Panel (09/24/2022 12:31 PM EST) Sodium 141 135 - 145 mmol/L [facility] Potassium 4.2 3.3 - 5.1 mmol/L [facility] Chloride 109(H) 96 - 108 mmol/L [facility] Carbon Dioxide 23 22 - 29 mmol/L [facility] Anion Gap 13 12 - 20 [facility] Urea Nitrogen (BUN) 11 9 - 16 mg/dL [facility] Creatinine, Serum 0.67 0.5 - 1.4 mg/dL [facility] Creatinine Clr Calc Pharmacy 106.8 [facility] Comment:Provided height and weight: 167.64 cm,107.955 kg.eGFR (calculated from the MDRD study equation) and eCrCl(calculated from the Cockcroft-Gault equation) are based ondifferent parameters and may not yield comparable results.If eCrCl result is absurd, please check patient'sheight/weight. Estimated Glomerular Filt Rate >60 [facility] Comment:NOTE: For -Am erican individuals, multiply the result by 1.210.Chronic Kidney Disease: Estimated GFR < 60 mL/min/1.26g7Jmxzzt Kidney Disease: Estimated GFR < 15 mL/min/1.73m2 Glucose 98 60 - 115 mg/dL [facility] Calcium 9.9 8.4 - 10.2 mg/dL [facility] Bilirubin, Total 0.2 0.0 - 1.0 mg/dL [facility] Aspartate Amino Transferase 18 5 - 31 U/L [facility] Alanine Aminotransferase 24 0 - 31 U/L [facility] Total Protein 7.3 6.5 - 8.0 g/dL [facility] Albumin Level 4.4 3.5 - 5.0 g/dL [facility] Alkaline Phosphatase 138(H) 39 - 117 U/L [facility] 09/24/2022 12:3 1 PM EST 09/24/2022 12:39 PM EST [facility] External Provider LAB BLO OD ORDERABLES Final Result Performing Organization Address [facility] Co de Phone Number [facility] [address] [place] [address] [phone] * (ABNORMAL) APTT (09/24/2022 12:31 PM EST) Partial Thromboplastin Time 38.7(H) 26.0 - 36.4 SEC [facility] 09/24/2022 12:3 1 PM EST 09/24/2022 12:39 PM EST [facility] External Provider LAB BLO OD ORDERABLES Final Result Performing Organization Address [facility] Co de Phone Number [facility] [address] [place] [phone] * Prothrombin Time-INR (09/24/2022 12:31 PM EST) Prothrombin Time 10.3 10.0 - 13.1 SEC [facility] INTERNATIONAL NORM RATIO 0.9 0.9 - 1.1 [facility] Comment:INTERNATIONAL NORMAL IZED RATIO (INR) REFERENCE [...] PM EST 09/24/2022 12:39 PM EST [facility] External Provider LAB BLO OD ORDERABLES Final Result Performing Organization Address City/State/[facility] Co de Phone Number [facility] [address] [place] [address] [phone] * CBC auto differential (09/24/2022 12:31 PM EST) White Blood Count 7.0 4.8 - 10.8 X10*3/uL [facility] Red Blood Count 5.07 4.20 - 5.50 X10*6/uL [facility] Hemoglobin 14.6 12.0 - 16.0 g/dl [facility] Hematocrit 44.9 37.0 - 47.0 % [facility] Mean Corpuscular Volume 88.6 80.0 - 98.0 fL [facility] Mean Corpuscular Hemoglobin 28.8 27.0 - 33.0 pg [facility] Mean Corpuscular HGB Conc 32.5 31.0 - 35.0 g/dl [facility] Red Cell Distribution Width 13.2 11.0 - 16.0 % [facility] Platelet Count 299 160 - 400 X10*3/uL [facility] Mean Platelet Volume 10.4 9.4 - 12.3 fL [facility] Neutrophils Percent Auto 65.1 45 - 73 % [facility] Imm Gran Pct Auto 0.3 0.0 - 0.4 % [facility] Lymphocytes Percent Auto 25.3 20 - 40 % [facility] Monocytes Percent Auto 6.5 2 - 11 % [facility] Eosinophils Percent Auto 1.7 0 - 4 % [facility] Basophils Percent Auto 1.1 0 - 2 % [facility] NRBC Pct Auto 0.0 0.0 - 0.2 /100WBC [facility] Neutrophils Absolute Auto 4.5 2.0 - 8.3 x10*3/uL [facility] Imm Gran Abs Auto 0.02 0.00 - 0.03 X10*3/uL [facility] Lymphocytes Absolute Auto 1.8 1.2 - 4.9 X10*3/uL [facility] Monocytes Absolute Auto 0.5 0.1 - 1.2 X10*3/uL [facility] Eosinophils Absolute Auto 0.1 0.0 - 0.4 X10*3/uL [facility] Basophils Absolute Auto 0.1 0.0 - 0.2 X10*3/uL [facility] NRBC Abs Auto 0.000 0.0 - 0.012 X10*3/uL [facility] 09/24/2022 12:3 1 PM EST 09/24/2022 12:39 PM EST [facility] External Provider LAB BLO OD ORDERABLES Final Result Performing Organization Address City/State/[facility] Co de Phone Number [facility] [address] [place] [address] [phone] documented in this encounter Visit Diagnoses Not on filedocumented in this encounter Care Teams Deli Worker Relationship Specialty Start Date End Date Name, MD Tone [address] [place] [address] [phone] PCP - General Family Medicine 08/17/19 [facility] 02/16/25 04/18/25 documented as of this encounter
--- OUTSIDE RECORDS SUMMARY | 2025-05-17 17:32 | XMS_ITS | Encounter Summary ---
Author Organization [employer] [facility] Address [address] [place] [address] 7 [place] [address] Care Team Providers Care Umbrella Supervisor Name Role Phone Name, Tone SEPULVEDA Primary Care Provider [phone] Reason for Visit * Reason Comments Med Refill Encounter Details Date Type Department Care Team (Late st Contact Info) Description 03/24/[address] [phone] NameTone MD [address] [place] [address] [phone] Social History Tobacco Use Types Packs/Day Years [...] Description 07/19/2025 10:45 AM EST Office Visit [address] [phone] Tone Cool MD [address] [place] [phone] 07/22/2025 1:30 PM EST Telemedicine [address] [place] [address] Tanya Ellison, RN documented as of this encounter Visit Diagnoses Not on filedocumented in this encounter Additional Health Concerns Assessment Noted Time PHQ-9 Depression Total Score: 0 12/26/19 23 1:52 PM EDT documented as of this encounter Care Teams Umbrella Supervisor Relationship Specialty Start Date End Date Name, MD Tone [address] [place] [address] PCP - General Family Medicine 08/17/19 [facility] 02/16/25 04/18/25 documented as of this encounter
--- OUTSIDE RECORDS SUMMARY | 2025-05-17 17:32 | XMS_ITS | Encounter Summary ---
Author Organization [employer] Address [address] [facility] 7t [place] [address] Care Team Providers Care Loader Engineer Name Role Phone Name, Tone SEPULVEDA Primary Care Provider [phone] Reason for Visit * Reason Onset Date Comments Nurse Triage 02/18/2024 Encounter Details Date Type Department Care Team ([facility] st Contact Info) Description 02/18/2024 Telephone [facility] MEDICINE [address] [place] [address] Name, MD Tone [address] [place] [address] Nurse Triage Social History Tobacco Use Types [...] Description 07/19/2025 10:45 AM EST Office Visit [facility] [place] [phone] Name, [place] [address] 07/22/2025 1:30 PM EST Telemedicine [facility] [place] [address] Tanya Ellison RN documented as of this encounter Visit Diagnoses Not on filedocumented in this encounter Additional Health Concerns Assessment Noted Time PHQ-9 Depression Total Score: 11 024 2:10 PM EDT documented as of this encounter Care Teams Loader Engineer Relationship Specialty Start Date End Date Name[place] [address] PCP - General Family Medicine 08/17/19 Annie [facility] 02/16/25 04/18/25 documented as of this encounter
--- OUTSIDE RECORDS SUMMARY | 2025-05-17 17:32 | XMS_ITS | Encounter Summary ---
Author Organization [employer] Address [address] [facility] [address] [place] [address] Care Team Providers Care Dye Tank Tender Name Role Phone Name, Tone SEPULVEDA Primary Care Provider [phone] Reason for Visit * Reason Onset Date Comments Status Request 02/26/2024 Encounter Details Date Type Department Care Team ([facility] st Contact Info) Description 02/26/2024 Telephone [facility] MEDICINE [address] [place] [address] Name, MD Tone [address] [place] [address] Status Request Social History Tobacco Use Types [...] during last OV. Please contact pt at [phone]. documented in this encounter Plan of Treatment Upcoming Encounters Date Type Department Care Team (Late st Contact Info) Description 07/19/2025 10:45 AM EST Office Visit [address] [address] Name, MD Tone [address] [place] [phone] 07/22/2025 1:30 PM EST Telemedicine [address] [address] Tanya Ellison, [place] documented as of this encounter Visit Diagnoses Not on filedocumented in this encounter Additional Health Concerns Assessment Noted Time PHQ-9 Depression Total Score: 11 024 2:10 PM EDT documented as of this encounter Care Teams Dye Tank Tender Relationship Specialty Start Date End Date Name, MD Tone [address] [place] [phone] PCP - General Family Medicine 08/17/19 Annie SETHIA 02/16/25 04/18/25 documented as of this encounter
--- OUTSIDE RECORDS SUMMARY | 2025-05-17 17:32 | XMS_ITS | Encounter Summary ---
Author Organization [employer] Address 75 [facility] 7t [place] [address] Care Team Providers Care Laser Systems Engineer Name Role Phone Name, Toen SEPULVEDA Primary Care Provider [phone] Encounter Details Date Type Department Care Team (Late Contact Info) Description 01/03/2023 Telephone [facility] MEDICINE [address] [place] [address] [phone] NameTone MD [address] [place] [address] [phone] Social History Tobacco Use Types Packs/Day Years [...] Description 07/19/2025 10:45 AM EST Office Visit [facility] MEDICINE [address] [place] [address] [phone] Name, MD Tone [address] [place] [address] 07/22/2025 1:30 PM EST Telemedicine [facility] MEDICINE [address] [place] [address] Tanya Ellison, RN documented as of this encounter Visit Diagnoses Not on filedocumented in this encounter Additional Health Concerns Assessment Noted Time PHQ-9 Depression Total Score: 0 12/26/19 23 1:52 PM EDT documented as of this encounter Care Teams Laser Systems Engineer Relationship Specialty Start Date End Date Name, MD Tone [address] [place] [address] PCP - General Family Medicine 08/17/19 Annie SETHIA 02/16/25 04/18/25 documented as of this encounter
--- OUTSIDE RECORDS SUMMARY | 2025-05-17 17:32 | XMS_ITS | Encounter Summary ---
Author Organization [employer] Address [address] [facility] [address] 7t [place] [address] Care Team Providers Care Filler Shredder Machine Name Role Phone Name, Tone SEPULVEDA Primary Care Provider [phone] Encounter Details Date Type Department Care Team ([facility] st Contact Info) Description 11/25/2023 Telephone [facility] MEDICINE 230 [place] [address] Name, MD Tone 230 [place] [address] Social History Tobacco Use Types Packs/Day Years [...] Description 07/19/2025 10:45 AM EST Office Visit [address] [address] Name, MD Tone [address] [place] [address] 07/22/2025 1:30 PM EST Telemedicine [address] [address] Tanya Ellison RN documented as of this encounter Visit Diagnoses Not on filedocumented in this encounter Additional Health Concerns Assessment Noted Time PHQ-9 Depression Total Score: 0 12/26/19 23 1:52 PM EDT documented as of this encounter Care Teams Filler Shredder Machine Relationship Specialty Start Date End Date Name, MD Tone [address] [place] [address] PCP - General Family Medicine 08/17/19 Annie SETHIA 02/16/25 04/18/25 documented as of this encounter
--- OUTSIDE RECORDS SUMMARY | 2025-05-17 17:32 | XMS_ITS | Encounter Summary ---
Author Organization [employer] Address 75 [facility] 7t [place] [address] Care Team Providers Care Cupola Tapper Helper Name Role Phone Name, Tone SEPULVEDA Primary Care Provider [phone] Reason for Visit * Reason Onset Date Comments Med Refill 02/26/2024 Encounter Details Date Type Department Care Team ([facility] st Contact Info) Description 02/26/2024 Refill [facility] MEDICINE 230 [place] [address] Name, MD Tone 230 [place] [address] Chronic back pain, unspecified back location, unspecified [...] Gamino LPN - 02/26/2024 1:32 PM EDT KNOWLEDGE ARCHITECT checked 02/26/24. Next appointment 03/23/24. * Telephone Encounter - Pio Carolina - 02/26/2024 1:08 PM EDT TC from pt requesting medication refill. Medications needing refill: pregabalin (Lyrica) 300 MG capsule To be sent to: [facility] Pharmacy documented in this encounter Plan of Treatment Upcoming Encounters Date Type Department Care Team (Late st Contact Info) Description 07/19/2025 10:45 AM EST Office Visit [facility] MEDICINE [address] [place] [address] Name, MD Tone [address] [place] [address] 07/22/2025 1:30 PM EST Telemedicine [facility] MEDICINE [address] [place] [address] Tanya Ellison, SHUBHAM documented as of this encounter Visit Diagnoses Diagnosis Chronic back pain, unspecified back location, unspecified back pain laterality documented in this encounter Additional Health Concerns Assessment Noted Time PHQ-9 Depression Total Score: 11 024 2:10 PM EDT documented as of this encounter Care Teams Cupola Tapper Helper Relationship Specialty Start Date End Date Name, MD Tone [address] [place] [address] PCP - General Family Medicine 08/17/19 Annie HERNANDEZ 02/16/25 04/18/25 documented as of this encounter
--- OUTSIDE RECORDS SUMMARY | 2025-05-17 17:32 | XMS_ITS | Encounter Summary ---
Author Organization [employer] Address 75 [facility] 7t [place] [address] Care Team Providers Care Lease Administrator Name Role Phone Name, Tone SEPULVEDA Primary Care Provider [phone] Reason for Visit * Reason Onset Date Comments Med refill 05/19/2023 Encounter Details Date Type Department Care Team ([facility] st Contact Info) Description 05/19/2023 Telephone [facility] MEDICINE 230 [place], [place] [phone] Name, MD Tone 230 [place] [address] Med refill Social History Tobacco Use Types [...] 4:22 PM EDT Rosalinda Mayer RN from [facility] called to report patient self referral for [facility], reports that she has a letter that states she needs 24/7 care ? Requested a copy of letter and we will review with PCP, then let them know to do eval. if needed. * Telephone Encounter - Sherri Cummings - 05/19/2023 3:57 PM EDT Tc from pt requesting med refill on cyclobenzaprine (Flexeril) 10 MG tablet And her Zolfran 4 mg tablet Please sent to [facility] [place], [place] - [address] [place] [address] documented in this encounter Plan of Treatment Upcoming Encounters Date Type Department Care Team (Late st Contact Info) Description 07/19/2025 10:45 AM EST Office Visit [address] [address] Name, MD Tone [address] [place] [address] 07/22/2025 1:30 PM EST Telemedicine [address] [address] Tanya Ellison RN documented as of this encounter Visit Diagnoses Diagnosis Nausea Nausea alone documented in this encounter Additional Health Concerns Assessment Noted Time PHQ-9 Depression Total Score: 0 12/26/19 23 1:52 PM EDT documented as of this encounter Care Teams Lease Administrator Relationship Specialty Start Date End Date Name, MD Tone [address] [place] [address] PCP - General Family Medicine 08/17/19 [place] NAVDEEPA 02/16/25 04/18/25 documented as of this encounter
--- OUTSIDE RECORDS SUMMARY | 2025-05-17 17:32 | XMS_ITS | Encounter Summary ---
Author Organization [employer] Address [address] [facility] [address] 7t [place] [address] Care Team Providers Care Field Sales Representative Name Role Phone Name, Tone SEPULVEDA Primary Care Provider [phone] Reason for Visit * Reason Comments Med Refill Encounter Details Date Type Department Care Team ([facility] st Contact Info) Description 12/23/2023 Refill [facility] MED & PEDS [address] [place], [place] [phone] Name, MD Tone 230 [place] [address] Chronic back pain, unspecified back location, unspecified [...] Description 07/19/2025 10:45 AM EST Office Visit [address] [address] NameTone MD [address] [place] [address] 07/22/2025 1:30 PM EST Telemedicine [address] [address] Tanya Ellison, SHUBHAM documented as of this encounter Visit Diagnoses Diagnosis Chronic back pain, unspecified back location, unspecified back pain laterality Anxiety disorder, unspecified Chronic low back pain, unspecified back pain laterality, unspecified whether sciatica present documented in this encounter Additional Health Concerns Assessment Noted Time PHQ-9 Depression Total Score: 0 12/26/19 23 1:52 PM EDT documented as of this encounter Care Teams Field Sales Representative Relationship Specialty Start Date End Date NameTone MD [address] [place] [address] PCP - General Family Medicine 08/17/19 Annie SETHIA 02/16/25 04/18/25 documented as of this encounter
--- OUTSIDE RECORDS SUMMARY | 2025-05-17 17:32 | XMS_ITS | Encounter Summary ---
Author Organization [employer] [facility] Address 75 [facility] 7 [place] [address] Care Team Providers Care Utility Gelatin Maker Name Role Phone Name, Tone SEPULVEDA Primary Care Provider Reason for Visit * Reason Comments Med Refill Encounter Details Date Type Department Care Team (Late Contact Info) Description 10/03/2022 Refill [facility] MEDICINE [address] [place] [address] [phone] NameTone MD [address] [place] [address] [phone] Anxiety disorder, unspecified Social History Tobacco Use [...] Description 07/19/2025 10:45 AM EST Office Visit [facility] MEDICINE [address] [place] [address] [phone] NameTone MD [address] [place] [address] [phone] 07/22/2025 1:30 PM EST Telemedicine [facility] MEDICINE 230 [place] [address] Tanya Ellison RN documented as of this encounter Visit Diagnoses Diagnosis Anxiety disorder, unspecified documented in this encounter Care Teams Utility Gelatin Maker Relationship Specialty Start Date End Date Name, MD Tone 230 [place] [address] PCP - General Family Medicine 08/17/19 [facility] 02/16/25 04/18/25 documented as of this encounter
--- OUTSIDE RECORDS SUMMARY | 2025-05-17 17:32 | XMS_ITS | Encounter Summary ---
Author Organization [employer] Address [address] [facility] [address] 7t [place] [address] Care Team Providers Care Administration Manager Name Role Phone Name, Tone SEPULVEDA Primary Care Provider [phone] Reason for Visit * Reason Comments Med Refill Encounter Details Date Type Department Care Team ([facility] st Contact Info) Description 06/26/2023 Refill [facility] [address] [place], [place] [phone] [facility] 230 [place] [address] Anxiety disorder, unspecified Social History Tobacco Use [...] Description 07/19/2025 10:45 AM EST Office Visit [address] [address] Name, MD Tone [address] [place] [address] 07/22/2025 1:30 PM EST Telemedicine [address] [address] Tanya Ellison, SHUBHAM documented as of this encounter Visit Diagnoses Diagnosis Anxiety disorder, unspecified documented in this encounter Additional Health Concerns Assessment Noted Time PHQ-9 Depression Total Score: 0 12/26/19 23 1:52 PM EDT documented as of this encounter Care Teams Administration Manager Relationship Specialty Start Date End Date Name, MD Tone [address] [place] [address] PCP - General Family Medicine 08/17/19 [facility] 02/16/25 04/18/25 documented as of this encounter
--- OUTSIDE RECORDS SUMMARY | 2025-05-17 17:32 | XMS_ITS | Encounter Summary ---
Author Organization [employer] Address 75 [facility] 7t [place] [address] Care Team Providers Care Pet Counselor Name Role Phone Name, Tone SEPULVEDA Primary Care Provider [phone] Reason for Visit * Reason Comments Med Change Request Encounter Details Date Type Department Care Team ([facility] st Contact Info) Description 06/09/2024 Refill [facility] MEDICINE 230 [place] [address] Name, MD Tone 230 [place] [address] Social History Tobacco Use Types Packs/Day Years [...] Description 07/19/2025 10:45 AM EST Office Visit [facility] MEDICINE [address] [place] [address] Name, MD Tone [address] [place] [address] 07/22/2025 1:30 PM EST Telemedicine [address] [address] Tanya Ellison, SHUBHAM documented as of this encounter Visit Diagnoses Not on filedocumented in this encounter Additional Health Concerns Assessment Noted Time PHQ-9 Depression Total Score: 11 024 2:10 PM EDT documented as of this encounter Care Teams Pet Counselor Relationship Specialty Start Date End Date Name, MD Tone [address] [place] [address] PCP - General Family Medicine 08/17/19 Annie SETHIA 02/16/25 04/18/25 documented as of this encounter
--- OUTSIDE RECORDS SUMMARY | 2025-05-17 17:32 | XMS_ITS | Encounter Summary ---
Author Organization [employer] Address [address] [place] [address] 7t [place] [address] Care Team Providers Care Public Relations Intern Name Role Phone Name, Tone SEPULVEDA Primary Care Provider [phone] Reason for Visit * Reason Comments Med Refill Encounter Details Date Type Department Care Team ([facility] st Contact Info) Description 04/18/2023 Refill [facility] MEDICINE 230 [place], [place] [phone] Name, MD Tone 230 [place] [address] Anxiety disorder, unspecified; Chronic low back pain, [...] EDT Duplicate. New refill request sent by MORTGAGE UNDERWRITER nurse. * Telephone Encounter - Deisy King 04/18/2023 10:23 AM EDT Tc from patient requesting a med refill for medication oxycodone 15 mg. Please send to [facility] pharmacy. PCP Dr. Cool documented in this encounter Plan of Treatment Upcoming Encounters Date Type Department Care Team (Late st Contact Info) Description 07/19/2025 10:45 AM EST Office Visit [address] [address] Name, MD Tone [address] [place] [address] 07/22/2025 1:30 PM EST Telemedicine [address] [address] Tanya Ellison RN documented as of this encounter Visit Diagnoses Diagnosis Anxiety disorder, unspecified Chronic low back pain, unspecified back pain laterality, unspecified whether sciatica present documented in this encounter Additional Health Concerns Assessment Noted Time PHQ-9 Depression Total Score: 0 12/26/19 23 1:52 PM EDT documented as of this encounter Care Teams Public Relations Intern Relationship Specialty Start Date End Date Tone Cool MD [address] [place] [address] PCP - General Family Medicine 08/17/19 Annie HERNANDEZ 02/16/25 04/18/25 documented as of this encounter
--- OUTSIDE RECORDS SUMMARY | 2025-05-17 17:32 | XMS_ITS | Encounter Summary ---
Author Organization [employer] Address 75 [facility] 7t [place] [address] Care Team Providers Care Referral Nurse Name Role Phone Name, Tone SEPULVEDA Primary Care Provider [phone] Reason for Visit * Reason Onset Date Comments Medication Question 08/18/2023 Encounter Details Date Type Department Care Team ([facility] st Contact Info) Description 08/18/2023 Telephone [facility] MEDICINE 230 [place] [address] Name, MD Tone 230 [place] [address] Medication Question Social History Tobacco Use Types [...] Keller RN - 08/19/2023 5:04 PM EST SYLVIATonia Smith has question for refill for [place]-24 400 [...] and understood. Advised to give call to [facility] if any questions or concerns. * Telephone Encounter - Sherri Cummings - 08/18/2023 3:58 PM EST Tc from Sarah with Annie HERNANDEZ requesting a call from a nurse in regards to pt med list not coordinating with what she has. Please contact Sarah @ [phone] documented in this encounter Plan of Treatment Upcoming Encounters Date Type Department Care Team (Late st Contact Info) Description 07/19/2025 10:45 AM EST Office Visit [facility] MEDICINE [address] [place] [address] Name, MD Tone [address] [place] [address] 07/22/2025 1:30 PM EST Telemedicine [facility] MEDICINE [address] [place] [address] Tanya Ellison, SHUBHAM documented as of this encounter Visit Diagnoses Not on filedocumented in this encounter Additional Health Concerns Assessment Noted Time PHQ-9 Depression Total Score: 0 12/26/19 23 1:52 PM EDT documented as of this encounter Care Teams Referral Nurse Relationship Specialty Start Date End Date Name, MD Tone [address] [place] [address] PCP - General Family Medicine 08/17/19 Annie SETHIA 02/16/25 04/18/25 documented as of this encounter
--- OUTSIDE RECORDS SUMMARY | 2025-05-17 17:32 | XMS_ITS | Encounter Summary ---
Author Organization [employer] Address 75 [facility] 7t [place] [address] Care Team Providers Care Software Trainer Name Role Phone Name, Tone SEPULVEDA Primary Care Provider [phone] Reason for Visit * Reason Comments Med Change Request Encounter Details Date Type Department Care Team ([facility] st Contact Info) Description 08/09/2024 Refill [facility] MEDICINE 230 [place] [address] Name, MD Tone 230 [place] [address] Social History Tobacco Use Types Packs/Day Years [...] 10:45 AM EST Office Visit [facility] MEDICINE [address] [place] [address] Name, MD Tone [address] [place] [address] 07/22/2025 1:30 PM EST Telemedicine [address] [address] Tanya Ellison, SHUBHAM documented as of this encounter Visit Diagnoses Not on filedocumented in this encounter Additional Health Concerns Assessment Noted Time PHQ-9 Depression Total Score: 11 024 2:10 PM EDT documented as of this encounter Care Teams Software Trainer Relationship Specialty Start Date End Date Name, MD Tone [address] [place] [address] PCP - General Family Medicine 08/17/19 Annie SETHIA 02/16/25 04/18/25 documented as of this encounter
--- OUTSIDE RECORDS SUMMARY | 2025-05-17 17:32 | XMS_ITS | Encounter Summary ---
Author Organization [facility] Address [address] [address] Phone Care Team Providers Care Gang Saw Operator Name Role Phone Name, Tone SEPULVEDA Primary Care Provider [phone] Encounter Details Date Type Department Care Team (Late st Contact Info) Description 05/26/2024 Procedure Pass [facility] Cardiac Welder Explosion [address] [place] [address] Social History Tobacco Use Types Packs/Day Years [...] on filedocumented in this encounter Care Teams Gang Saw Operator Relationship Specialty Start Date End Date Name, MD Tone [address] [place] [address] PCP - General Internal Medicine 05/18/24 documented as of this encounter Additional Source Comments The information contained in this document represents components of the legal health record. It is not the complete legal health record.[facility]
--- OUTSIDE RECORDS SUMMARY | 2025-05-17 17:32 | XMS_ITS | Encounter Summary ---
Author Organization [facility] Address [address] [place] [address] 7 [place] [address] Care Team Providers Care Adult Psychiatrist Name Role Phone Name, Tone SEPULVEDA Primary Care Provider [phone] Reason for Visit * Reason Comments Med Refill Encounter Details Date Type Department Care Team (Late Contact Info) Description 03/22/[address] [phone] NameTone MD [address] [place] [address] [phone] Wheezing Social History Tobacco Use Types Packs/Day [...] Description 07/19/2025 10:45 AM EST Office Visit [address] [phone] NameTone MD [address] [place] [address] 07/22/2025 1:30 PM EST Telemedicine [address] [place] [address] Tanya Ellison, RN documented as of this encounter Visit Diagnoses Diagnosis Wheezing documented in this encounter Additional Health Concerns Assessment Noted Time PHQ-9 Depression Total Score: 0 12/26/19 23 1:52 PM EDT documented as of this encounter Care Teams Adult Psychiatrist Relationship Specialty Start Date End Date Name, MD Tone 230 [place] [address] PCP - General Family Medicine 08/17/19 [place] [facility] 02/16/25 04/18/25 documented as of this encounter
--- OUTSIDE RECORDS SUMMARY | 2025-05-17 17:32 | XMS_ITS | Encounter Summary ---
Author Organization [employer] Address 75 [facility] 7t [place] [address] Care Team Providers Care Furniture Maker Name Role Phone Name, Tone SEPULVEDA Primary Care Provider [phone] Reason for Visit * Reason Comments Med Refill Encounter Details Date Type Department Care Team ([facility] st Contact Info) Description 05/22/2023 Refill [facility] MEDICINE 230 [place], [place] [phone] Name, MD Tone 230 [place] [address] Nausea Social History Tobacco Use Types Packs/Day [...] Description 07/19/2025 10:45 AM EST Office Visit [facility] MEDICINE [address] [place] [phone] Name, MD Tone [address] [place] [address] 07/22/2025 1:30 PM EST Telemedicine [facility] MEDICINE [address] [place] [address] Tanya Ellison, SHUBHAM documented as of this encounter Visit Diagnoses Diagnosis Nausea Nausea alone documented in this encounter Additional Health Concerns Assessment Noted Time PHQ-9 Depression Total Score: 0 12/26/19 23 1:52 PM EDT documented as of this encounter Care Teams Furniture Maker Relationship Specialty Start Date End Date Tone Cool MD [address] [place] [address] PCP - General Family Medicine 08/17/19 [facility] 02/16/25 04/18/25 documented as of this encounter
--- OUTSIDE RECORDS SUMMARY | 2025-05-17 17:32 | XMS_ITS | Encounter Summary ---
Author Organization [facility] Address [address] [employer] [address] [address] Phone Care Team Providers Care Color Television Console Monitor Name Role Phone Name, Tone SEPULVEDA Primary Care Provider [phone] Encounter Details Date Type Department Care Team (Late st Contact Info) Description 05/20/2024 Procedure Pass [facility] Cardiac Inspector Subassembly [address] [place] [address] Social History Tobacco Use Types Packs/Day Years [...] documented as of this encounter Care Teams Color Television Console Monitor Relationship Specialty Start Date End Date Name, MD Tone 230 [place] [address] PCP - General Internal Medicine 05/18/24 documented as of this encounter Additional Source Comments The information contained in this document represents components of the legal health record. It is not the complete legal health record.[facility]
--- OUTSIDE RECORDS SUMMARY | 2025-05-17 17:32 | XMS_ITS | Encounter Summary ---
Author Organization [employer] Address 75 [facility] 7t [place] [address] Care Team Providers Care Commercial Property Manager Name Role Phone Name, Tone SEPULVEDA Primary Care Provider Reason for Visit * Reason Comments Med Refill Encounter Details Date Type Department Care Team ([facility] st Contact Info) Description 02/02/2024 Refill [facility] MEDICINE 230 [place] [address] Name, MD Tone 230 [place], [place] [phone] Wheezing Social History Tobacco Use Types Packs/Day [...] Description 07/19/2025 10:45 AM EST Office Visit [address] [address] NameTone MD [address] [place] [address] 07/22/2025 1:30 PM EST Telemedicine [address] [address] Tanya Ellison, SHUBHAM documented as of this encounter Visit Diagnoses Diagnosis Wheezing documented in this encounter Additional Health Concerns Assessment Noted Time PHQ-9 Depression Total Score: 11 024 2:10 PM EDT documented as of this encounter Care Teams Commercial Property Manager Relationship Specialty Start Date End Date NameTone MD [address] [place] [address] PCP - General Family Medicine 08/17/19 Anine SETHIA 02/16/25 04/18/25 documented as of this encounter
--- OUTSIDE RECORDS SUMMARY | 2025-05-17 17:32 | XMS_ITS | Clinical Summary ---
Author Organization [facility] Address [address] [address] Phone Care Team Providers Care Mines Safety Engineer Name Role Phone Name, Tone SEPULVEDA Primary Care Provider [phone] Allergies Active Allergy Reactions Criticality Noted Date Comments Latex Rash Low 05/18/2024 Penicillins Hives 05/18/2024 Medications hydrocortisone (CORTEF) 10 MG tabletIndications: adrenocortical insufficiency Take 10 mg by mouth 2 (two) times a day. Indications: decreased function of the adrenal gland Active phenytoin (DILANTIN) 100 MG ER capsule Take 100 mg by mouth 2 (two) times a day. Active pregabalin (LYRICA) 300 MG capsule Take 300 mg by mouth 2 (two) times a day. Active oxyCODONE 15 MG immediate release tablet Take 15 mg by mouth every 4 (four) hours as needed for pain (specific location in comments). Fibromyalgia/ Chronic Pain Active levothyroxine (SYNTHROID, LEVOTHROID) 150 MCG tablet Take 150 mcg by mouth every morning. Active amLODIPine (NORVASC) 2.5 MG tablet Take 5 mg by mouth daily. 4 Active aspirin 81 MG EC tablet Take 81 mg by mouth daily. 3 Active SYMBICORT 160-4.5 mcg/actuation inhaler Inhale 2 puffs into the lungs 2 (two) times a day. Active albuterol 90 mcg/actuation inhaler Inhale 1 puff into the lungs 4 (four) times a day. 4 Active cyclobenzaprine (FLEXERIL) 10 MG tablet Take 10 mg by mouth 3 (three) times a day. 4 Active cycloSPORINE 0.05 % Drop Place 1 drop into each eye 2 (two) times a day. Active fluticasone propionate (FLONASE) 50 mcg/actuation nasal spray 2 sprays by Nasal route daily. 4 Active furosemide (LASIX) 20 MG tablet Take 20 mg by mouth daily. 4 Active isosorbide mononitrate (IMDUR) 30 MG 24 hr tablet Take 30 mg by mouth daily. 4 Active lisinopril (PRINIVIL,ZESTRIL) 10 MG tablet Take 1 tablet by mouth every morning. 4 Active montelukast (SINGULAIR) 10 mg tablet Take 10 mg by mouth nightly at bedtime. 4 Active omeprazole (PRILOSEC) 20 MG capsule Take 40 mg by mouth daily. 3 Active sertraline (ZOLOFT) 25 MG tablet Take 25 mg by mouth daily. 3 Active topiramate (TOPAMAX) 25 MG tablet Take 25 mg by mouth 2 (two) times a day. 4 Active tiotropium bromide (SPIRIVA RESPIMAT) 2.5 mcg/actuation mist for inhalation Inhale 2 puffs into the lungs every morning. 3 Active ondansetron (ZOFRAN) 4 MG tablet Take 4 mg by mouth every 8 (eight) hours as needed for nausea. Active clonazePAM (KLONOPIN) 1 MG tablet Take 1 mg by mouth 2 (two) times a day as needed for anxiety. 4 Active atorvastatin (LIPITOR) 80 MG tablet Take 1 tablet (80 mg total) by mouth nightly at bedtime. 30 tablet 2 4 Active metoprolol succinate (TOPROL-XL) 25 MG 24 hr tablet Take 1 tablet (25 mg total) by mouth daily. 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 Immunizations Immunization Administration Dates Next Due Influenza High-Dose Trivalen t Preservative Free IM 05/28/2024(Deferred: Patient Refused) Social History Tobacco Use Types Packs/Day Years [...] Orientation Straight 05/18/2024 10 :14 PM EDT Last Filed Vital Signs Vital Sign Reading Time Taken Comments Blood Pressure 122/58 05/28/2024 12:34 PM EDT Pulse 74 05/28/2024 12:39 PM EDT Temperature 36.5 C (97.7 F) 05/28/2024 12:39 PM EDT Respiratory Rate 18 05/28/2024 12:39 PM EDT Oxygen Saturation 99% 05/28/2024 8:27 AM EDT Inhaled Oxygen Concentration - - Weight 110 kg (242 lb 8.1 oz) 05/28/2024 5:40 AM EDT Height 167.6 cm (5' 6 ) 05/21/2024 7:00 PM EDT Body Mass Index 39.14 05/21/2024 7:00 PM EDT Plan of Treatment Health Maintenance Due Date Last Done Comments Adult Td,Tdap Booster 1958 PHENYTOIN (DILANTIN) LEVEL 1958 DEPRESSION SCREENING 1970 SMOKING Hx and SMOKELESS TOBACCO SCREENING 12/08/1971 HEPATITIS C SCREENING 1976 MAMMOGRAM 1998 COLOGUARD 12/08/2003 COLONOSCOPY 12/08/2003 COLORECTAL CANCER SCREENING 12/08/2003 FIT TEST 12/08/2003 FOBT 12/08/2003 SIGMOIDOSCOPY 12/08/2003 VIRTUAL COLONOSCOPY 12/08/2003 PNEUMOCOCCAL VACCINES (50+ years) (1 of 1 - PCV) 2008 ZOSTER VACCINES (1 of 2) 2008 OSTEOPOROSIS SCREENING INITIAL (ONE-TIME) 12/08/2023 INFLUENZA VACCINE (#1) 2025 COVID-19 VACCINE ( - season) 2025 TSH LEVEL 05/19/2025 05/19/2024 CREATININE LEVEL 05/28/2025 05/28/2024, , 05/27/2024, Additional history exists POTASSIUM LEVEL 05/28/2025 05/28/2024, 05/09, 05/27/2024, Additional history exists SCREENING FOR DIABETES 05/28/2027 05/28/2024, 2023 LIPID PANEL 05/19/2029 05/19/2024, 10/06/2023 RSV VACCINE (1 - 1-dose 75+ series) 2033 HEPATITIS A VACCINES Aged Out No long er eligible based on patient's age to complete this topic HIB VACCINES Aged Out No longer eligi ble based on patient's age to complete this topic MENINGOCOCCAL VACCINES (ACWY) Aged Out No longer eligible based on patient's age to complete this topic MENINGOCOCCAL VACCINES (B) Aged Out N o longer eligible based on patient's age to complete this topic Medical Devices Not on file Procedures Procedure Name Priority Date/Time Associated Diagnosis Comments BASIC METABOLIC PANEL Routine 05/28/2024 8:16 AM EDT LIPID PANEL Routine 05/19/2024 9:14 AM EDT TSH WITH REFLEX Routine 05/19/2024 9:14 AM EDT from Last 3 Months or Most Recently Relevant to Health Maintenance Results * (ABNORMAL) Basic metabolic panel (05/28/2024 8:16 AM EDT) SODIUM 144 136 - 145 mmol/L [facility] POTASSIUM 4.2 3.4 - 5.1 mmol/L [facility] CHLORIDE 103 98 - 107 mmol/L [facility] CO2 30 22 - 31 mmol/L [facility] BUN 12 6 - 23 mg/dL [facility] CREATININE 0.48(L) 0.50 - 1.20 mg/dL [facility] GLUCOSE 87 70 - 100 mg/dL [facility] CALCIUM 9.3 8.8 - 10.7 mg/dL [facility] EGFR 105 >59 mL/min/1. 73m2 [facility] Comment:Estimated glomerular filtration rate calculated using the CKD-EPI refit equation. ANION GAP 11 7 - 17 mmol/L [facility] Blood 05/28/2024 8:16 AM EDT 05/28/2024 9:06 AM EDT Matti Elias MD LAB BLOOD ORDERABLES Final Res ult Performing Organization Address [facility] Co de Phone Number [facility] [address] [place] [phone] * (ABNORMAL) TSH with reflex (05/19/2024 9:14 AM EDT) TSH 9.78(H) 0.50 - 5.70 uIU/mL [facility] Blood 05/19/2024 9:14 AM EDT 05/19/2024 9:51 AM EDT us Matti Elias MD LAB BLOOD ORDERABLES Final Res ult Performing Organization Address City/[facility]/ZIP Co de Phone Number [facility] [address] [place] [phone] * (ABNORMAL) Lipid panel (05/19/2024 9:14 AM EDT) CHOLESTEROL 217(H) <200 mg/dL [facility] TRIGLYCERIDES 140 35 - 150 mg/dL [facility] HDL 67 40 - 80 mg/dL [facility] CALCULATED LDL 122 50 - 129 mg/dL [facility] VLDL 28 <31 mg/dL [facility] CARDIAC RISK RATIO 3.2 0.0 - 4.0 [facility] Blood 05/19/2024 9:14 AM EDT 05/19/2024 9:51 AM EDT us Matti Elias MD LAB BLOOD ORDERABLES Final Res ult [facility] [address] [place] [address] from Last 3 Months or Most Recently Relevant to Health Maintenance Insurance MEDIC[place] PART A & [place] [id number] [facility] [employer] O MEDICARE REPLACEMENT MEDICARE PART A & B [facility] MEDICARE REPLACEMENT MEDICARE PART A & B [facility] MEDICARE REPLACEMENT MEDICARE PART A & B [place] MED[place] REPLAC[place] MEDICARE PART A & B [place] [facility] MEDIC[facility] REPLACEMENT MEDICARE PART A & B [facility] Advance Directives For more information, please contact: [phone] (9AM - 5PM [facility], Friday-Friday) * Full Code (Latest Code Status on File) Date Activated Date Inactivated Comments 05/19/2024 2:04 AM Question Answer Comments Code Status Confirmed With: Patient Care Teams Mines Safety Engineer Relationship Specialty Start Date End Date Name, MD Tone [address] [place] [address] PCP - General Internal Medicine 05/18/24 Additional Source Comments The information contained in this document represents components of the legal health record. It is not the complete legal health record.[facility]
--- OUTSIDE RECORDS SUMMARY | 2025-05-17 17:32 | XMS_ITS | Encounter Summary ---
Author Organization [employer] Address [address] [place] [address] Care Team Providers Care Field Artillery Officer Name Role Phone Name, Tone SEPULVEDA Primary Care Provider [phone] Reason for Visit * Reason Onset Date Comments Call Back Request 09/16/2023 Encounter Details Date Type Department Care Team ([facility] st Contact Info) Description 09/16/2023 Telephone [facility] MEDICINE [address] [place] [address] Name, MD Tone [address] [place] [address] Call Back Request Social History Tobacco Use [...] Miscellaneous Notes * Telephone Encounter - Toni Perez - 09/16/2023 3:32 PM EST Tc from patient calling requesting to speak with a nurse states has a missed call and was advised to call back the call center however sheet writer does not see anything on patient chart documented in this encounter Plan of Treatment Upcoming Encounters Date Type Department Care Team (Late st Contact Info) Description 07/19/2025 10:45 AM EST Office Visit [facility] MEDICINE [address] [place] [address] Name, MD Tone [address] [place] [address] 07/22/2025 1:30 PM EST Telemedicine [address] [address] Tanya Ellison, [place] documented as of this encounter Visit Diagnoses Not on filedocumented in this encounter Additional Health Concerns Assessment Noted Time PHQ-9 Depression Total Score: 0 12/26/19 23 1:52 PM EDT documented as of this encounter Care Teams Field Artillery Officer Relationship Specialty Start Date End Date Name, MD Tone [address] [place] [phone] PCP - General Family Medicine 08/17/19 Annie VNA 02/16/25 04/18/25 documented as of this encounter
--- OUTSIDE RECORDS SUMMARY | 2025-05-17 17:32 | XMS_ITS | Encounter Summary ---
Author Organization [employer] Address [address] [facility] [address] [place] [address] Care Team Providers Care Lead Database Administrator Name Role Phone Name, Tone SEPULVEDA Primary Care Provider [phone] Reason for Visit * Reason Onset Date Comments Referral 03/17/2024 Encounter Details Date Type Department Care Team ([facility] st Contact Info) Description 03/17/2024 Telephone [facility] MEDICINE [address] [place] [address] Name, MD Tone [address] [place] [address] Referral Social History Tobacco Use Types Packs/Day [...] no answer. LVM to call back on [phone]. * Telephone Encounter - Toni Galdamez - [...] Description 07/19/2025 10:45 AM EST Office Visit [address] [address] Name, MD Tone [address] [place] [address] 07/22/2025 1:30 PM EST Telemedicine [address] [phone] Tanya Ellison RN documented as of this encounter Visit Diagnoses Not on filedocumented in this encounter Additional Health Concerns Assessment Noted Time PHQ-9 Depression Total Score: 024 2:10 PM EDT documented as of this encounter Care Teams Lead Database Administrator Relationship Specialty Start Date End Date Name, MD Tone [address] [place] [address] PCP - General Family Medicine 08/17/19 Annie SETHIA 02/16/25 04/18/25 documented as of this encounter
--- OUTSIDE RECORDS SUMMARY | 2025-05-17 17:32 | XMS_ITS | Clinical Summary ---
Author Organization [email or web address] Address [address] [facility] [place] [address] Care Team Providers Care Product Development Engineer Name Role Phone Name, Tone SEPULVEDA Primary Care Provider [phone] Allergies Active Allergy Reactions Criticality Noted Date [...] 1 tablet by oral route every day 12/13/19 22 Active Multiple Vitamin (Multi-Vitamin) tablet take 1 tablet by oral route every day with food Active Acetaminophen Extra Strength 500 MG tablet Take 1 tablet by mouth every 8 (eight) hours if needed. 07/23/20 22 Active hydrocortisone (Cortef) 10 MG tabletIndication s:Secondary adrenal insufficiency (CMS/HCC) Take 1 tablet (10 mg) by mouth 2 times daily. 60 tablet 3 04/28/20 23 Active Misc. Devices (Pulse Oximeter) misc Use daily directed 1 each 05/08/20 23 Active nicotine (Nicoderm, Step 1) 21 MG/24HR patch APPLY 1 PATCH TOPICALLY TO THE SKIN IN THE MORNING *DO NOT SMOKE WHILE USING PATCH* 30 patch 1 11/25/19 24 Active atorvastatin (Lipitor) 80 MG tablet Take 1 tablet by mouth at bedtime. 05/28/20 24 Active Alcohol Swabs (Alcohol Prep) 70 % pads USE BEFORE INJECTION 100 each 2 06/23/20 24 Active diphenhydrAMINE (BENADryl) 25 MG capsule TAKE 1 CAPSULE BY MOUTH EVERY DAY NEEDED 90 capsule 06/24/20 24 Active Lancets misc Use to test blood sugar 1 times daily 100 each 08/04/20 24 Active naloxone (Narcan) 4 mg/0.1 mL nasal spray FOR SUSPECTED OPIOID OVERDOSE. SPRAY 0.1mL IN ONE NOSTRIL. REPEAT IN ALTERNATE NOSTRIL 2-3 MINUTES IF NEEDED. SEEK MEDICAL ATTENTION IMMEDIATELY EVEN IF PATIENT RESPONDS. 2 each 1 08/10/20 24 Active furosemide (Lasix) 20 MG tablet TAKE 1 TABLET BY MOUTH EVERY DAY FOR 7 DAYS 7 tablet 10/20/19 25 Active isosorbide mononitrate ER (Imdur) 30 MG 24 hr tablet TAKE 1 TABLET BY MOUTH EVERY DAY 90 tablet 1 12/09/19 25 Active levothyroxine (Synthroid, Levoxyl) 150 MCG tablet TAKE 1 TABLET BY MOUTH EVERY DAY BEFORE BREAKFAST 90 tablet 1 12/14/19 25 Active chlorhexidine (Peridex) 0.12 % solution Swish 15 mL morning and night for 1 minute. Spit, do not swallow. Do not eat or drink for 30 minutes following use. 473 mL 12/23/19 25 Active budesonide-formo terol (Symbicort) 160-4.5 MCG/ACT inhaler Inhale 2 puffs in the morning and at bedtime. Rinse mouth with water after use to reduce aftertaste and incidence of candidiasis. Do not swallow. 10.2 g 11 12/23/19 25 2025 Active docusate sodium (Colace) 100 MG capsuleIndicatio ns:Constipation, unspecified constipation type TAKE 1 CAPSULE BY MOUTH TWICE DAILY NEEDED 180 capsule 1 01/13/20 25 Active albuterol (Ventolin HFA) 108 (90 Base) MCG/ACT inhalerIndicatio ns:Wheezing INHALE 2 PUFFS BY MOUTH EVERY 4 HOURS NEEDED FOR WHEEZING OR SHORTNESS OF BREATH 18 g 1 01/15/20 25 Active Umeclidinium Troy (Incruse Ellipta) 62.5 MCG/ACT aerosol powder Inhale 1 Act (62.5 mcg) Once per day. 30 Act 11 02/11/20 25 2025 Active phenytoin ER (Dilantin) 100 MG capsule TAKE 2 CAPSULES BY MOUTH TWICE A DAY, NEED NEW INSURANCE CARD 120 capsule 2 02/22/20 25 Active montelukast (Singulair) 10 MG tabletIndication s:Moderate chronic obstructive pulmonary disease (CMS/HCC) TAKE 1 TABLET BY MOUTH EVERY DAY IN THE EVENING 90 tablet 3 02/26/20 25 Active sertraline (Zoloft) 25 MG tabletIndication s:Anxiety and depression TAKE 1 TABLET BY MOUTH EVERY DAY 30 tablet 3 02/26/20 25 Active ondansetron (Zofran) 4 MG tabletIndication s:Nausea and vomiting in adult TAKE 1 TABLET BY MOUTH EVERY 8 HOURS NEEDED FOR NAUSEA AND VOMITING 90 tablet 03/01/20 25 Active topiramate (Topamax) 25 MG tabletIndication s:Seizure disorder (CMS/HCC) TAKE 1 TABLET BY MOUTH TWICE DAILY IN THE MORNING AND IN THE EVENING 60 tablet 3 03/03/20 25 Active Aspirin Low Dose 81 MG chewable tablet Chew 1 tablet Once per day. 12/18/19 25 Active cyclobenzaprine (Flexeril) 10 MG tabletIndication s:Chronic back pain, unspecified back location, unspecified back pain laterality,Fibro myositis TAKE 1 TABLET BY MOUTH THREE TIMES DAILY 90 tablet 1 03/30/20 25 Active fluticasone (Flonase) 50 MCG/ACT nasal spray INSTILL 2 SPRAYS IN EACH NOSTRIL ONCE DAILY 16 g 2 04/15/20 25 Active omeprazole (PriLOSEC) [address] capsule TAKE 1 CAPSULE BY MOUTH EVERY DAY BEFORE BREAKFAST, DO NOT BREAK, CRUSH, DISSOLVE OR CHEW 30 capsule 11 04/19/20 25 Active clonazePAM (KlonoPIN) 1 MG tabletIndication s:Anxiety disorder, unspecified TAKE 1 TABLET BY MOUTH TWICE DAILY NEEDED FOR ANXIETY OR PANIC ATTACK Do not start before April 28, 2025. 56 tablet 04/28/20 25 Active oxyCODONE (Roxicodone) 15 MG immediate release tabletIndication s:Chronic low back pain, unspecified back pain laterality, unspecified whether sciatica present TAKE 1 TABLET BY MOUTH EVERY 4 HOURS NEEDED FOR SEVERE PAIN FOR UP TO 28 DAYS 168 tablet 04/28/20 25 Active pregabalin (Lyrica) 300 MG capsuleIndicatio ns:Chronic back pain, unspecified back location, unspecified back pain laterality,Fibro myositis TAKE 1 CAPSULE BY MOUTH TWICE DAILY 56 capsule 04/22/20 25 Active nitroglycerin (Nitrostat) 0.[address] 1 tablet (0.3 mg) under the tongue every 5 (five) minutes if needed for chest pain. 90 tablet 04/25/202025 Active omeprazole (PriLOSEC) [address] capsule Take 1 capsule (40 mg) by mouth before breakfast. Do not crush or chew. 30 capsule 04/06/202024 Discontinued pregabalin (Lyrica) 300 MG capsuleIndicatio ns:Chronic back pain, unspecified back location, unspecified back pain laterality,Fibro myositis TAKE 1 CAPSULE BY MOUTH TWICE DAILY 56 capsule 03/24/20 25 2024 Discontinued oxyCODONE (Roxicodone) 15 MG immediate release tabletIndication s:Chronic low back pain, unspecified back pain laterality, unspecified whether sciatica present Take 1 tablet (15 mg) by mouth every 4 (four) hours if needed (severe pain) for up to 28 days. Do not start before March 31, 2025. 168 tablet 03/31/20 25 2024 Discontinued clonazePAM (KlonoPIN) 1 MG tabletIndication s:Anxiety disorder, unspecified TAKE 1 TABLET BY MOUTH TWICE DAILY NEEDED FOR ANXIETY OR PANIC ATTACK Do not start before March 31, 2025. 56 tablet 03/31/20 25 2024 Discontinued predniSONE (Deltasone) 20 MG tabletIndication s:COPD with acute exacerbation (CMS/HCC) Take 2 tablets (40 mg) by mouth Once per day for 5 days. 10 tablet 04/25/20 25 2024 doxycycline (Vibra-Tabs) 100 MG tabletIndication s:COPD with acute exacerbation (CMS/HCC) Take 1 tablet (100 mg) by mouth 2 times daily for 10 days. Take with a full glass of water and do not lie down for at least 30 minutes after. 20 tablet 04/25/20 25 2024 Active Problems Problem Noted Date Diagnosed Date COPD with acute exacerbation 02/19/2025 Long-term current use of opiate analgesic 2024 Long-term current use of benzodiazepine 02/05/20 25 Acute coronary insufficiency syndrome 12/22/2024 History of [place] (myocardial infarction) 12/22/2024 Overactive bladder 12/22/2024 Pain, dental 12/22/2024 Severe dental caries 12/22/2024 Morbid obesity with BMI of 40.0-44.9, adult 08/08 Acute pain of left shoulder 08/11/2024 Assessment & Plan (08/11/2024 4:29 PM EST): - Ordered XR Shoulder 2+ Views Left 08/11/24 - Advised to seek medical attention if no improvement or worsening of symptoms - ER precautions reviewed. Cardiac anomaly, congenital 07/06/2024 Overview [...] branch. NM myocardial perfusion stress mibi 05/25/24: [facility] 1. Functional Capacity: 3.9 METS [...] her age and gender. Cardiac cath 05/26/24: [facility] Access: left radial artery, right [...] Tobacco dependence syndrome 07/03/2017 Essential hypertension 04/21/2017 Obstructive sleep apnea syndrome 04/03/2017 Peptic ulcer [...] (12/22/2024): W/ulcers per patient GI previously through [facility] Carpal tunnel syndrome 08/10/2010 Resolved Problems Problem Noted Date Diagnosed Date Resolved Date Neck pain 12/22/2024 01/12/2025 Unstable angina 12/22/2024 03/14/2025 Chest pain 12/22/2024 03/14/2025 Pelvic pain 12/22/2024 03/14/2025 Hypothyroidism 12/22/2024 03/14/2025 UTI symptoms 08/11/2024 03/14/2025 Assessment & Plan (08/11/2024 4:28 PM EST): - Ordered Urinalysis, Complete, with Reflex to Culture 08/11/24 - Ordered POCT urinalysis dipstick manually resulted 08/11/24 - Prescribed sulfamethoxazole-trimethoprim (Bactrim DS) 800-160 MG tablet 08/11/24 - Advised to seek medical attention if no improvement or worsening of symptoms - ER precautions reviewed. Urinary retention 08/11/2024 03/14/2025 Assessment & Plan (08/11/2024 4:27 PM EST): - Referred to Urology 08/11/24 -Advised to seek medical attention if no improvement or worsening of symptoms -ER precautions reviewed. Angina decubitus 09/30/2022 02/13/2023 Hepatitis A 09/30/2022 04/08/2024 Thyroid disorder 09/30/2022 11/12/2023 Multinodular goiter 08/13/2022 11/12/19 Thyroid nodule 12/03/2018 11/12/2023 Dyslipidemia 04/03/2017 03/14/2025 Fracture of carpal bone 04/03/2017 09/0 01/2024 Encounters Date Type Department Care Team Description 05/13/2025 1:[address] [facility] [address] [place] [address] Tanya Ellison, RN Long-term current use of opiate analgesic; Long-term current use of benzodiazepine 05/13/[address] [facility] [address] [facility] [place] [address] Tanya Ellison RN PAN DEVUL[employer]ER Agreement renewed 05/13/2025 Travel 04/26/2025 Results Follow-Up [facility] [address] [place] [address] Tone Cool MD XR Chest 2 Views 04/25/2025 10:45 AM EDT Office Visit [facility] MED[facility]INE [address] [place] [phone] Tone Cool MD COPD with acute exacerbation ([facility]) (Primary Dx); Fever, unspecified fever cause; Chest pain varying with breathing; Atypical chest pain 04/25/2025 Travel 04/22/2025 Telephone [facility] [address] [place] [phone] Annmarie Ac MA Chart Prep 04/22/2025 Telephone [facility] [address] [place] [phone] Tone Cool MD Nurse Triage 04/21/2025 Refill [facility] [address] [place] [phone] Tone Cool MD Anxiety disorder, unspecified; Chronic low back pain, unspecified back pain laterality, unspecified whether sciatica present; Chronic back pain, unspecified back location, unspecified back pain laterality; 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 Refill [facility] [address] [place] [phone] Tone Cool MD 04/15/2025 Refill [facility] [address] [place] [address] Tone Cool MD 04/12/2025 Patient Outreach [facility] PEDS [address] [place], [place] [phone] Tone Cool MD Pre-visit Planning ([facility] unable to reach [facility] ) 03/30/2025 Refill [facility] [address] [place] [phone] Tone Cool MD Chronic back pain, unspecified back location, unspecified back pain laterality; 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 Refill [facility] [address] [place] [phone] Tone Cool MD Chronic low back pain, unspecified back pain laterality, unspecified whether sciatica present; Anxiety disorder, unspecified 03/25/2025 Telephone [facility] [address] [place] [phone] Tone Cool MD Durable Medical Equipment 03/24/2025 Telephone [facility] [address] [place] [phone] Tone Cool MD Prior Authorization 03/24/2025 Refill [facility] PEDS [address] [place] [address] Tone Cool MD Chronic back pain, unspecified back location, unspecified back pain laterality; Fibromyositis 03/23/2025 Telephone [facility] [address] [place] [phone] Tone Cool MD Nurse Triage 03/15/2025 Telephone [facility] [address] [place] [phone] Tone Cool MD Durable Medical Equipment 03/14/2025 1:00 PM EDT Office Visit [facility] [address] [place] [phone] Tone Cool MD COPD with hypoxia ([facility]) (Primary Dx); History of pneumonia; Pain of upper abdomen; Liver cyst; Other osteoporosis, unspecified pathological fracture presence 03/14/2025 Travel 03/10/2025 Telephone [facility] [address] [place] [phone] Annmarie Ac MA Chart Prep 03/07/2025 Orders Only [facility] [address] [place] [phone] Evangelist Velazquez MD 03/03/[address] [address] Tone Cool MD Durable Medical Equipment 03/03/2025 Telephone [facility] [address] [place] [phone] Tone Cool MD Nurse Triage 03/03/2025 Refill [facility] WALK-IN CENTER [address] [place] [phone] Tone Cool MD Seizure disorder ([facility]/HCC) 02/28/2025 Refill [facility] & PEDS [address] [place] [address] Tone Cool MD Nausea and vomiting in adult; Chronic low back pain, unspecified back pain laterality, unspecified whether sciatica present; Anxiety disorder, unspecified 02/25/2025 Refill [facility]IN [facility] [address] [place] [address] Tone Cool MD Anxiety and depression 02/24/2025 Refill [facility]ED[facility] [address] [place] [address] Tone Cool MD Moderate chronic obstructive pulmonary disease (CMS/HCC); Anxiety and depression 02/21/2025 Refill [facility] [address] [place] [address] Tone Cool MD 02/18/2025 1:30 PM EDT Telemedicine [facility] [address] [place] [address] Tanya Ellison RN Long-term current use of opiate analgesic; Long-term current use of benzodiazepine 02/18/2025 Travel 02/14/2025 Telephone [facility] [address] [place] [address] Tone Cool MD FYI from Last 3 Months Immunizations Immunization Administration [...] Sign Reading Time Taken Comments Blood Pressure 112/74 04/25/2025 11:21 AM EDT Pulse 80 04/25/2025 11:21 AM EDT Temperature 36.7 C (98.1 F) 04/25/2025 11:21 AM EDT Respiratory Rate 16 04/25/2025 11:21 AM EDT Oxygen Saturation 96% 04/25/2025 11:21 AM EDT Inhaled Oxygen Concentration - - Weight 116 kg (256 lb) 04/25/2025 11:21 AM EDT Height 167.6 cm (5' 6 ) 04/25/2025 11:21 AM EDT Body Mass Index 41.32 04/25/2025 11:21 AM EDT Plan of Treatment Upcoming Encounters Date Type Department Care Team (Late st Contact Info) Description 07/19/2025 10:45 AM EST Office Visit [address] [address] Name, MD Tone [address] [place] [address] 07/22/2025 1:30 PM EST Telemedicine [address] [address] Tanya Ellison, RN Health Maintenance Due Date Last Done Comments [...] Mammogram 03/10/2024 03/10/2023 COVID-19 Vaccine ( season) 2025 12/03/2021, 12/13/2020, 11/15/2020 Influenza Vaccine (#1) 2025 , 10/06/2023, 06/28/2022, Additional history exists Depression Monitoring 07/02/2025 12/31/2024, 025 Alcohol/Substance Use Screening 12/31/2025 12/31/2024 SDOH Screening 03/14/2026 03/14/2025 Tobacco Screening 04/25/2026 04/25/2025 Colonoscopy 06/09/2028 06/09/2023 Colorectal Cancer Screening 06/09/2028 Lipid Panel 10/06/2028 10/06/2023 DTaP/Tdap/Td Vaccines (2 - Td or Tdap) 07/06/2034 07/06/2024 Hepatitis C Screening Completed 10/06/2023 Pneumococcal Vaccine: 50+ Years Completed 10/06/2023 HIB Vaccines Aged Out No longer eligi [...] Procedure Name Priority Date/Time Associated Diagnosis Comments ECG 12-LEAD Routine 04/25/2025 12:24 PM EDT Atypical chest pain XR CHEST 2 VIEWS Routine 04/25/2025 11:4 9 AM EDT COPD with acute exacerbation (CMS/HCC) Fever, unspecified fever cause CT ABDOMEN PELVIS W CONTRAST Routine 03/03/2025 10:57 AM EDT HEPATITIS C ANTIBODY Routine 10/06/2023 2:48 PM EST Need for hepatitis C screening test LIPID PANEL, STANDARD Routine 10/06/2023 2:48 PM EST Screening for cholesterol level COLONOSCOPY Routine 06/09/2023 MAMMOGRAPHY Routine 03/10/2023 from Last 3 Months or Most Recently Relevant to Health Maintenance Results * ECG 12 lead (04/25/2025 12:24 PM EDT) Narrative Tone Cool MD - 04/25/2025 12:24 PM EDT Normal sinus rhythm, heart rate of 77, no ST segment elevation or depression, nonspecific T wave flattening. This EKG is unchanged from her usual baseline Tone Cool MD ECG ORDERABLES Final Result * XR Chest 2 Views (04/25/2025 11:49 AM EDT) Anatomical Region Laterality Modality Chest Radiographic Azul ging 04/25/2025 11:4 9 AM EDT Narrative 04/25/2025 12:49 PM EDT [place] [address] XRay Report Signed Patient: Annie Estes MR#: [id number] : 1960 Acct:[id number] Age/Sex: 64 / F ADM Date: 04/25/25 Loc: [facility] Attending Dr: Tone Cool MD Ordering Physician: Tone Cool MD Date of Service: 04/25/25 Procedure(s): XR chest 2V Accession Number(s): [id number] cc: Tone Cool MD EXAMINATION: XR CHEST 2 VIEWS HISTORY: Cough, wheezing, [place], low grade fevers COMPARISON: Comparison is made with the prior examination dated 04/27/2024. FINDINGS: PA and lateral views of the chest are submitted. There are patchy opacities at both lung bases which may represent early pneumonia. There is no pleural effusion, pneumothorax, or pulmonary vascular congestion. The heart is normal in size. There are mild compression deformities of mid and lower thoracic vertebral bodies which are new from the prior study. XR/XR chest 2V IMPRESSION: 1. Patchy opacities at both lung bases which may represent early pneumonia. Follow-up is recommended to document resolution. 2. Mild compression deformities of mid and lower thoracic vertebral bodies which are new from the prior study Electronically signed by: Duane Lopez MD 04/25/2025 12:46 PM EDT RP Dictated By: Duane Lopez MD Signed By: <Electronically signed by Duane Lopez MD in OV> 04/25/25 1246 DD/ 1149 TD/TT: 04/25/25 1239 Sustain Engineer: Procedure Note Donotuseinterpreter, Image - 04/25/[address] [address] XRay Report Signed Patient: Annie Estes OMR#: [id number] : 9Acct:[id number] Age/Sex: 64 / FADM Date: 04/25/25 Loc: [facility] Attending Dr: Tone Cool MD Ordering Physician: Tone Cool MD Date of Service: 04/25/25 Procedure(s): XR chest 2V Accession Number(s): [id number] cc: Tone Cool MD EXAMINATION: XR CHEST 2 VIEWS HISTORY: Cough, wheezing, [place], low grade fevers COMPARISON: Comparison is made with the prior examination dated 04/27/2024. FINDINGS: PA and lateral views of the chest are submitted. There are patchy opacities at both lung bases which may represent early pneumonia. There is no pleural effusion, pneumothorax, or pulmonary vascular congestion. The heart is normal in size. There are mild compression deformities of mid and lower thoracic vertebral bodies which are new from the prior study. XR/XR chest 2V IMPRESSION: 1. Patchy opacities at both lung bases which may represent early pneumonia. Follow-up is recommended to document resolution. 2. Mild compression deformities of mid and lower thoracic vertebral bodies which are new from the prior study Electronically signed by: Duane Lopez MD 04/25/2025 12:46 PM EDT RP Dictated By: Duane Lopez MD Signed By: <Electronically signed by Duane Lopez MD in OV> 04/25/25 1246 DD/ 1149 TD/TT: 04/25/25 1239 Sustain Engineer: us Wayne Name IMG XR PROCEDURES Final Result * CT Abdomen Pelvis w/ Contrast (03/03/2025 10:57 AM EDT) Anatomical Region Laterality Modality Body, Pelvis, Abdomen Computed T omography Historical Provider MD LANCE CT PROCEDURES Final R esult * Hepatitis C Ab (10/06/2023 2:48 PM EST) Pathologist [facility] Hepatitis C Antibody Nonreactive Nonreactive [facility] Comment:Antibodies to HCV no t detected; does not exclude early acuteHCV infection. Blood Venous blood specimen / Unknown 10/06/2023 2:48 PM EST 10/06/2023 3:54 PM EST us Tone Cool MD LAB BLOOD ORDERABLES Final Resul t [facility] [address] [place] [phone] * (ABNORMAL) Lipid Panel, Standard (10/06/2023 2:48 PM EST) Pathologist [facility] Triglycerides 169(H) <150 mg/dL [facility] Comment:Desirable Triglyceri de: less than 150 mg/dLBorderline High Triglyceride 150-199 mg/dLHigh Triglyceride: 200-499 mg/dLVery High Triglyceride: greater than or equal to 5OO mg/dL Cholesterol 269(H) <200 mg/dL [facility] Comment:Desirable Cholestero l: less than 200 mg/dLBorderline High Cholesterol: 200-239 mg/dLHigh Cholesterol: greater than 239 mg/dL LDL Cholesterol Calculated 165(H) <100 mg/dL [facility] Comment:Desirable LDL: less than 100 mg/dLNear Optimal/Above Optimal LDL: 110- 129 mg/dLBorderline High LDL: 130-159 mg/dLHigh LDL: 160-189 mg/dLVery High LDL: greater than or equal to 190 mg/dL HDL Cholesterol 71 >40 mg/dL [facility] Comment:Desirable HDL: great er than 40 mg/dL Note: This HDL assay may give artificially low results in patients with liver disease. Blood Venous blood specimen / Unknown 10/06/2023 2:48 PM EST 10/06/2023 3:54 PM EST us Tone Cool MD LAB BLOOD ORDERABLES Final Resul t [facility] [address] [place] [phone] * (ABNORMAL) Colonoscopy (06/09/2023) Colonoscopy Abnormal(A ) Normal us Tone Cool MD HEALTH MAINTENANCE Final Result * Mammography (03/10/2023) Mammogram bi-rads 1 Anatomical Region Laterality Modality Other us Tone Cool MD HEALTH MAINTENANCE Final Result from Last 3 Months or Most Recently Relevant to Health [place] [id number] [facility] SKILLED NURSING OPTIONS (O D-SNP) D[facility] MEDICAID STAND ADULT Care Teams Product Development Engineer Relationship Specialty Start Date End Date Name, MD Tone [address] [place] [phone] PCP - General Family Medicine 08/17/19
--- OUTSIDE RECORDS SUMMARY | 2025-05-17 17:32 | XMS_ITS | Encounter Summary ---
Author Organization [employer] Address [address] [place] [address] 7 [place] [address] Care Team Providers Care Parking Manager Name Role Phone Name, Tone SEPULVEDA Primary Care Provider [phone] Reason for Visit * Reason Onset Date Comments Referral 04/16/2023 Encounter Details Date Type Department Care Team ([facility] st Contact Info) Description 04/16/2023 Telephone [facility] [address] [place], [place] [phone] Name, MD Tone [address] [place] [address] Referral Social History Tobacco Use Types Packs/Day [...] a referral to a kidney specialist. Location: [address] [place] [phone] Date: n/a Time: n/a Specialty: weight trainer documented in this encounter Plan of Treatment Upcoming Encounters Date Type Department Care Team (Late st Contact Info) Description 07/19/2025 10:45 AM EST Office Visit [address] [address] Name, MD Tone [address] [place] [address] 07/22/2025 1:30 PM EST Telemedicine [address] [address] Tanya Ellison, SHUBHAM documented as of this encounter Visit Diagnoses Not on filedocumented in this encounter Additional Health Concerns Assessment Noted Time PHQ-9 Depression Total Score: 0 12/26/19 23 1:52 PM EDT documented as of this encounter Care Teams Parking Manager Relationship Specialty Start Date End Date Name, MD Tone [address] [place] [phone] PCP - General Family Medicine 08/17/19 Annie SETHIA 02/16/25 04/18/25 documented as of this encounter
--- OUTSIDE RECORDS SUMMARY | 2025-05-17 17:32 | XMS_ITS | Encounter Summary ---
Author Organization [employer] Address 75 [facility] 7t [place] [address] Care Team Providers Care Organic Chemistry Professor Name Role Phone Name, Tone SEPULVEDA Primary Care Provider [phone] Reason for Visit * Reason Onset Date Comments Med Refill 10/22/2022 new script 10/22/2022 Encounter Details Date Type Department Care Team ([facility] st Contact Info) Description 10/22/2022 Telephone [facility] MEDICINE 230 [place], [place] [phone] Name, MD Tone 230 [place] [address] Med Refill; new script Social History Tobacco [...] Description 07/19/2025 10:45 AM EST Office Visit [address] [address] Name, MD Tone [address] [place] [address] 07/22/2025 1:30 PM EST Telemedicine [address] [address] Tanya Ellison, SHUBHAM documented as of this encounter Visit Diagnoses Not on filedocumented in this encounter Care Teams Organic Chemistry Professor Relationship Specialty Start Date End Date Name, MD Tone [address] [place] [address] PCP - General Family Medicine 08/17/19 Annie SETHIA 02/16/25 04/18/25 documented as of this encounter
--- OUTSIDE RECORDS SUMMARY | 2025-05-17 17:32 | XMS_ITS | Encounter Summary ---
Author Organization [employer] Address 75 [facility] 7t [place] [address] Care Team Providers Care Disassembler Name Role Phone NameTone MD Primary Care Provider [phone] Reason for Visit * Reason Onset Date Comments Medication Question 10/17/2022 Encounter Details Date Type Department Care Team ([facility] st Contact Info) Description 10/17/2022 Telephone [facility] MEDICINE 230 [place], [place] [phone] Name, MD Tone 230 [place] [address] Medication Question Social History Tobacco Use Types [...] for docusate sodium. Please contact pt at [phone] documented in this encounter Plan of Treatment Upcoming Encounters Date Type Department Care Team (Late st Contact Info) Description 07/19/2025 10:45 AM EST Office Visit [facility] MEDICINE [address] [place] [address] Name, MD Tone [address] [place] [address] 07/22/2025 1:30 PM EST Telemedicine [facility] [address] [place] [address] Tanya Ellison RN documented as of this encounter Visit Diagnoses Diagnosis Therapeutic opioid induced constipation- Primary Constipation, unspecified constipation type documented in this encounter Care Teams Disassembler Relationship Specialty Start Date End Date Name, MD Tone [address] [place] [address] PCP - General Family Medicine 08/17/19 Annie VNA 02/16/25 04/18/25 documented as of this encounter
--- OUTSIDE RECORDS SUMMARY | 2025-05-17 17:32 | XMS_ITS | Encounter Summary ---
Author Organization [employer] Address 75 [facility] 7t [place] [address] Care Team Providers Care Balloon Seller Name Role Phone Name, Tone SEPULVEDA Primary Care Provider Reason for Visit * Reason Onset Date Comments status request 04/07/2024 Encounter Details Date Type Department Care Team ([facility] st Contact Info) Description 04/07/2024 Telephone [facility] MEDICINE 230 [place] [address] Name, MD Tone 230 [place] [address] status request Social History Tobacco Use Types [...] received any update. Please contact pt at [phone]. * Telephone Encounter - Pio [place] - 04/07/2024 3:25 PM EDT Tc from pt calling stating she has no showed over [address] Portillo and they will not be ableto see pt, she is now requesting new referral for neurology. If any questions you can contact [t at [phone]. * Telephone Encounter - Pio [place] - 04/07/2024 2:45 PM EDT Tc from pt requesting status on form for adult foster care stating it has been signed a week ago but has not received any update. Please contact pt at [phone]. documented in this encounter Plan of Treatment Upcoming Encounters Date Type Department Care Team (Late st Contact Info) Description 07/19/2025 10:45 AM EST Office Visit [address] [address] Name, MD Tone [address] [place] [address] 07/22/2025 1:30 PM EST Telemedicine [address] [address] Tanya Ellison, RN documented as of this encounter Visit Diagnoses Not on filedocumented in this encounter Additional Health Concerns Assessment Noted Time PHQ-9 Depression Total Score: 024 2:10 PM EDT documented as of this encounter Care Teams Balloon Seller Relationship Specialty Start Date End Date Name, MD Tone [address] [place] [address] PCP - General Family Medicine 08/17/19 Annie SETHIA 02/16/25 04/18/25 documented as of this encounter
--- OUTSIDE RECORDS SUMMARY | 2025-05-17 17:32 | XMS_ITS | Encounter Summary ---
Author Organization [employer] Address 75 [facility] 7 [place] [address] Care Team Providers Care Returned Goods Inspector Name Role Phone Name, Tone SEPULVEDA Primary Care Provider [phone] Reason for Visit * Reason Onset Date Comments Nurse Triage 04/10/2023 Encounter Details Date Type Department Care Team ([facility] st Contact Info) Description 04/10/2023 Telephone [facility] MEDICINE 230 [place], [place] [phone] Name, MD Tone 230 [place] [address] Nurse Triage Social History Tobacco Use Types [...] eating small meals and that she ordered Brazilian food yesterday and only ate some of [...] previous orders. Follow with patient as needed. [facility] Walk In Center hours and availability reviewed [...] Description 07/19/2025 10:45 AM EST Office Visit [address] [address] Name, MD Tone [address] [place] [address] 07/22/2025 1:30 PM EST Telemedicine [address] [address] Tanya Ellison RN documented as of this encounter Visit Diagnoses Not on filedocumented in this encounter Additional Health Concerns Assessment Noted Time PHQ-9 Depression Total Score: 0 12/26/19 23 1:52 PM EDT documented as of this encounter Care Teams Returned Goods Inspector Relationship Specialty Start Date End Date Name, MD Tone [address] [place] [address] PCP - General Family Medicine 08/17/19 Annie SETHIA 02/16/25 04/18/25 documented as of this encounter
--- OUTSIDE RECORDS SUMMARY | 2025-05-17 17:32 | XMS_ITS | Encounter Summary ---
Author Organization [employer] Address 75 [facility] 7t [place] [address] Care Team Providers Care Bridge Rigger Name Role Phone Name, Tone SEPULVEDA Primary Care Provider [phone] Reason for Visit * Reason Onset Date Comments Hospital Follow-up 06/10/2023 Encounter Details Date Type Department Care Team ([facility] st Contact Info) Description 06/10/2023 Telephone [facility] MEDICINE 230 [place], [place] [phone] Name, MD Tone 230 [place] [address] Hospital Follow-up Social History Tobacco Use Types [...] HDF follow up appointment. Patient hospitalized at [facility] 06/02/23 and discharged on 06/09/23. Patient advised will forward to triage nurse for follow up and appointment scheduling. documented in this encounter Plan of Treatment Upcoming Encounters Date Type Department Care Team (Late st Contact Info) Description 07/19/2025 10:45 AM EST Office Visit [address] [address] Name, [place] [address] 07/22/2025 1:30 PM EST Telemedicine [address] [address] Tanya Ellison, SHUBHAM documented as of this encounter Visit Diagnoses Not on filedocumented in this encounter Additional Health Concerns Assessment Noted Time PHQ-9 Depression Total Score: 0 12/26/19 23 1:52 PM EDT documented as of this encounter Care Teams Bridge Rigger Relationship Specialty Start Date End Date Name, MD Tone [address] [place] [address] PCP - General Family Medicine 08/17/19 Annie VNA 02/16/25 04/18/25 documented as of this encounter
--- OUTSIDE RECORDS SUMMARY | 2025-05-17 17:32 | XMS_ITS | Encounter Summary ---
Author Organization [facility] Address [address] [address] Phone Care Team Providers Care Boiler Plant Operator Name Role Phone Name, Tone SEPULVEDA Primary Care Provider [phone] Encounter Details Date Type Department Care Team (Late st Contact Info) Description 05/19/2024 Procedure Pass [facility] Echocardiography [address] [place] [address] Social History Tobacco Use Types Packs/Day Years [...] documented as of this encounter Care Teams Boiler Plant Operator Relationship Specialty Start Date End Date Name, MD Tone 230 [place] [address] PCP - General Internal Medicine 05/18/24 documented as of this encounter Additional Source Comments The information contained in this document represents components of the legal health record. It is not the complete legal health record.[facility]
--- OUTSIDE RECORDS SUMMARY | 2025-05-17 17:32 | XMS_ITS | Encounter Summary ---
Author Organization [employer] Address 75 [facility] 7t [place] [address] Care Team Providers Care Paediatrician Name Role Phone Name, Tone SEPULVEDA Primary Care Provider [phone] Reason for Visit * Reason Comments Med Refill Encounter Details Date Type Department Care Team ([facility] st Contact Info) Description 11/25/2023 Refill [facility] MEDICINE 230 [place] [address] Name, MD Tone 230 [place], [place] [phone] Chronic low back pain, unspecified back pain [...] Description 07/19/2025 10:45 AM EST Office Visit [address] [address] Name, MD Tone [address] [place] [address] 07/22/2025 1:30 PM EST Telemedicine [address] [address] Tanya Ellison, SHUBHAM documented as of this encounter Visit Diagnoses Diagnosis Chronic low back pain, unspecified back pain laterality, unspecified whether sciatica present documented in this encounter Additional Health Concerns Assessment Noted Time PHQ-9 Depression Total Score: 0 12/26/19 23 1:52 PM EDT documented as of this encounter Care Teams Paediatrician Relationship Specialty Start Date End Date Name, MD Tone [address] [place] [address] PCP - General Family Medicine 08/17/19 [place] [facility] 02/16/25 04/18/25 documented as of this encounter
--- OUTSIDE RECORDS SUMMARY | 2025-05-17 17:33 | XMS_ITS | Encounter Summary ---
Author Organization [facility] [employer] Address 75 [facility] 7t [place] [address] Care Team Providers Care Gas Cutter Name Role Phone Name, Tone SEPULVEDA Primary Care Provider [phone] Reason for Visit * Reason Onset Date Comments Prior Authorization 01/07/2023 Encounter Details Date Type Department Care Team ([facility] st Contact Info) Description 01/07/2023 Telephone [facility] MEDICINE 230 [place], [place] [phone] Name, MD Tone 230 [place] [address] Prior Authorization Social History Tobacco Use Types [...] encounter Miscellaneous Notes * Telephone Encounter - Annieleonor Velazquez - 01/07/2023 1:22 PM EDT PA for Clonazepam faxed to * Telephone Encounter - Deisy Ferrara - 01/07/2023 12:17 PM EDT Tc from patient calling in regards to PA for medications clonazePAM (KlonoPIN) 1 MG tablet and pregabalin (Lyrica) 300 MG capsule. documented in this encounter Plan of Treatment Upcoming Encounters Date Type Department Care Team (Late st Contact Info) Description 07/19/2025 10:45 AM EST Office Visit [address] [address] Name, MD Tone [address] [place] [address] 07/22/2025 1:30 PM EST Telemedicine [address] [address] Tanya Ellison, SHUBHAM documented as of this encounter Visit Diagnoses Not on filedocumented in this encounter Additional Health Concerns Assessment Noted Time PHQ-9 Depression Total Score: 0 12/26/19 23 1:52 PM EDT documented as of this encounter Care Teams Gas Cutter Relationship Specialty Start Date End Date NameTone MD [address] [place] [address] PCP - General Family Medicine 08/17/19 Annie SETHIA 02/16/25 04/18/25 documented as of this encounter
--- OUTSIDE RECORDS SUMMARY | 2025-05-17 17:33 | XMS_ITS | Encounter Summary ---
Author Organization [employer] Address 75 [facility] 7t [place] [address] Care Team Providers Care Log Pond Worker Name Role Phone Name, Tone SEPULVEDA Primary Care Provider [phone] Encounter Details Date Type Department Care Team ([facility] st Contact Info) Description 03/07/2025 Orders Only [facility] 230 [place] [address] ProviderEvangelist MD Social History Tobacco Use Types Packs/Day [...] Description 07/19/2025 10:45 AM EST Office Visit [address] [address] Name, MD Tone [address] [place] [address] 07/22/2025 1:30 PM EST Telemedicine [address] [address] Tanya Ellison RN documented as of this encounter Procedures Procedure Name Priority Date/Time Associated Diagnosis Comments CT ABDOMEN PELVIS W CONTRAST Routine 03/03/2025 10:57 AM EDT documented in this encounter Results * CT Abdomen Pelvis w/ Contrast (03/03/2025 10:57 AM EDT) Anatomical Region Laterality Modality Body, Pelvis, Abdomen Computed T omography us Historical Provider MD LANCE CT PROCEDURES Final R esult documented in this encounter Visit Diagnoses Not on filedocumented in this encounter Additional Health Concerns Assessment Noted Time PHQ-9 Depression Total Score: 14 12/31/ 025 1:40 PM EDT documented as of this encounter Care Teams Log Pond Worker Relationship Specialty Start Date End Date Name, MD Tone 230 [place] [address] PCP - General Family Medicine 08/17/19 Annie HERNANDEZ 02/16/25 04/18/25 documented as of this encounter
--- OUTSIDE RECORDS SUMMARY | 2025-05-17 17:33 | XMS_ITS | Encounter Summary ---
Author Organization [employer] Address [address] [facility] [address] 7t [place] [address] Care Team Providers Care Research Interviewer Name Role Phone Name, Tone SEPULVEDA Primary Care Provider [phone] Reason for Visit * Reason Onset Date Comments Med Refill 06/23/2024 Patient walked i n requesting refill for clonazepam patient stated she is due for refill and needs a PA Encounter Details Date Type Department Care Team (Late st Contact Info) Description 06/23/2024 Refill [facility] MEDICINE 230 [place], [place] [phone] Name, MD Tone 230 [place], [place] [phone] Chronic back pain, unspecified back location, unspecified [...] Gamino LPN - 06/23/2024 11:02 AM EDT BRAND STRATEGIST 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 Next appointment 07/06/24. * Telephone Encounter - Vicky Hoskins - 06/23/2024 10:55 AM EDT TC from pt requesting medication refill. Medications needing refill : levothyroxine (Synthroid, Levoxyl) 150 MCG tablet To be sent to: [facility] - [place], [place] - [address] [facility] documented in this encounter Plan of Treatment Upcoming Encounters Date Type Department Care Team (Late st Contact Info) Description 07/19/2025 10:45 AM EST Office Visit [facility] MEDICINE 230 [place] [address] Name, [place] [address] 07/22/2025 1:30 PM EST Telemedicine [facility] [place] [address] Tanya Ellison, SHUBHAM documented as of this encounter Visit Diagnoses Diagnosis Chronic back pain, unspecified back location, unspecified back pain laterality documented in this encounter Additional Health Concerns Assessment Noted Time PHQ-9 Depression Total Score: 11 024 2:10 PM EDT documented as of this encounter Care Teams Research Interviewer Relationship Specialty Start Date End Date Name, [place] [address] PCP - General Family Medicine 08/17/19 Annie VNA 02/16/25 04/18/25 documented as of this encounter
--- OUTSIDE RECORDS SUMMARY | 2025-05-17 17:33 | XMS_ITS | Encounter Summary ---
Author Organization [employer] Address 75 [facility] 7t [place] [address] Care Team Providers Care Tire Recapper Name Role Phone Name, Tone SEPULVEDA Primary Care Provider Reason for Visit * Reason Comments Med Refill Encounter Details Date Type Department Care Team ([facility] st Contact Info) Description 09/04/2024 Refill [facility] MEDICINE 230 [place] [address] Name, MD Tone 230 [place], [place] [phone] Nausea and vomiting in adult Social History [...] AM EST Office Visit [facility] MEDICINE [address] [place] [address] Name, MD Tone [address] [place] [address] 07/22/2025 1:30 PM EST Telemedicine [facility] MEDICINE [address] [place] [address] Tanya Ellison, SHUBHAM documented as of this encounter Visit Diagnoses Diagnosis Nausea and vomiting in adult documented in this encounter Additional Health Concerns Assessment Noted Time PHQ-9 Depression Total Score: 11 024 2:10 PM EDT documented as of this encounter Care Teams Tire Recapper Relationship Specialty Start Date End Date Name, MD Tone [address] [place] [address] PCP - General Family Medicine 08/17/19 Annie SETHIA 02/16/25 04/18/25 documented as of this encounter
--- OUTSIDE RECORDS SUMMARY | 2025-05-17 17:33 | XMS_ITS | Encounter Summary ---
Author Organization [employer] Address 75 [facility] 7t [place] [address] Care Team Providers Care Plant Tour Guide Name Role Phone Name, Tone SEPULVEDA Primary Care Provider [phone] Reason for Visit * Reason Onset Date Comments Hospital Follow-up 05/28/2024 Encounter Details Date Type Department Care Team ([facility] st Contact Info) Description 05/28/2024 Telephone [facility] MEDICINE [address] [place] [address] Name, MD Tone 230 [place] [address] Hospital Follow-up Social History Tobacco Use Types [...] Tc from pt requesting HDF appt: Hospital: [facility] Date admitted: 05/18/24 Discharge Date: 05/28/24 Pressure Potassium low. documented in this encounter Plan of Treatment Upcoming Encounters Date Type Department Care Team (Late st Contact Info) Description 07/19/2025 10:45 AM EST Office Visit [facility] MEDICINE [address] [place] [address] Name, MD Tone [address] [place] [address] 07/22/2025 1:30 PM EST Telemedicine [address] [address] Tanya Ellison, SHUBHAM documented as of this encounter Visit Diagnoses Not on filedocumented in this encounter Additional Health Concerns Assessment Noted Time PHQ-9 Depression Total Score: 11 024 2:10 PM EDT documented as of this encounter Care Teams Plant Tour Guide Relationship Specialty Start Date End Date NameTone MD [address] [place] [address] PCP - General Family Medicine 08/17/19 Annie DAVID 02/16/25 04/18/25 documented as of this encounter
--- OUTSIDE RECORDS SUMMARY | 2025-05-17 17:33 | XMS_ITS | Encounter Summary ---
Author Organization [employer] Address 75 [facility] 7t [place] [address] Care Team Providers Care Geography Faculty Member Name Role Phone NameTone MD Primary Care Provider [phone] Reason for Visit * Reason Onset Date Comments triage 08/20/2022 requesting 08/20/2022 Encounter Details Date Type Department Care Team ([facility] st Contact Info) Description 08/20/2022 Telephone [facility] MEDICINE 230 [place], [place] [phone] NameTone MD 230 [place] [address] triage; requesting Social History Tobacco Use Types [...] Thank you * Telephone Encounter - Saeid Annaos - 08/20/2022 9:39 AM EST Tc from pt requesting an electric scooter Please contact pt at [phone] * Telephone Encounter - Saeid Evens - [...] Description 07/19/2025 10:45 AM EST Office Visit [facility] MEDICINE [address] [place] [address] Name, MD Tone [address] [place] [address] 07/22/2025 1:30 PM EST Telemedicine [address] [address] Tanya Ellison, SHUBHAM documented as of this encounter Visit Diagnoses Not on filedocumented in this encounter Care Teams Geography Faculty Member Relationship Specialty Start Date End Date Name, MD Tone [address] [place] [address] PCP - General Family Medicine 08/17/19 Annie SETHIA 02/16/25 04/18/25 documented as of this encounter
--- OUTSIDE RECORDS SUMMARY | 2025-05-17 17:33 | XMS_ITS | Encounter Summary ---
Author Organization [employer] Address 75 [facility] 7t [place] [address] Care Team Providers Care Statistics Professor Name Role Phone Name, Tone SEPULVEDA Primary Care Provider [phone] Reason for Visit * Reason Comments Med Change Request Encounter Details Date Type Department Care Team ([facility] st Contact Info) Description 10/04/2024 Refill [facility] MEDICINE 230 [place] [address] Name, MD Tone 230 [place] [address] Social History Tobacco Use Types Packs/Day Years [...] Description 07/19/2025 10:45 AM EST Office Visit [facility] MEDICINE [address] [place] [address] Name, MD Tone [address] [place] [address] 07/22/2025 1:30 PM EST Telemedicine [address] [address] Tanya Ellison, SHUBHAM documented as of this encounter Visit Diagnoses Not on filedocumented in this encounter Additional Health Concerns Assessment Noted Time PHQ-9 Depression Total Score: 11 024 2:10 PM EDT documented as of this encounter Care Teams Statistics Professor Relationship Specialty Start Date End Date Name, MD Tone [address] [place] [address] PCP - General Family Medicine 08/17/19 Annie SETHIA 02/16/25 04/18/25 documented as of this encounter
--- OUTSIDE RECORDS SUMMARY | 2025-05-17 17:33 | XMS_ITS | Encounter Summary ---
Author Organization [employer] Address 75 [facility] 7t [place] [address] Care Team Providers Care Fundraising Coordinator Name Role Phone Name, Tone SEPULVEDA Primary Care Provider [phone] Encounter Details Date Type Department Care Team (Late st Contact Info) Description 12/16/2024 Orders Only [facility] 230 [place] [address] Provider, MD Evangelist Social History Tobacco Use [...] Description 07/19/2025 10:45 AM EST Office Visit [address] [address] Name, MD Tone [address] [place] [address] 07/22/2025 1:30 PM EST Telemedicine [address] [address] Tanya Ellison, RN documented as of this encounter Procedures [...] documented as of this encounter Care Teams Fundraising Coordinator Relationship Specialty Start Date End Date Name, MD Tone [address] [place] [address] PCP - General Family Medicine 08/17/19 Annie SETHIA 02/16/25 04/18/25 documented as of this encounter
--- OUTSIDE RECORDS SUMMARY | 2025-05-17 17:33 | XMS_ITS | Clinical Summary ---
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 NM myocardial perfusion stress mibi 05/25/24: [facility] 1. Functional Capacity: 3.9 METS 2. Peak [...] her age and gender. Cardiac cath 05/26/24: [facility] Access: left radial artery, right internal jugular [...] as this was seen on outside cath. Encounters Date Type Department Care Team Description 03/03/2025 Telephone [facility] Cardiology Scheduling [address] [place] [address] Kobe John MD Non-urgent Clinical Request from Last 3 Months Social History Tobacco Use Types Packs/Day Years Used Date Smoking Tobacco: Never Assessed Comments Unknown Sex and Gender Information Value Date Recorded Sex Assigned at Not on file Legal Sex Female 9:58 AM EDT Gender Identity Not on file Sexual Orientation Not on file Last Filed Vital Signs Vital Sign Reading Time Taken Comments Blood Pressure 115/79 12/17/2024 4:35 PM EDT Pulse 72 12/17/2024 4:35 PM EDT Temperature - - Respiratory Rate - - Oxygen Saturation 96% 12/17/2024 4:3 5 PM EDT Inhaled Oxygen Concentration - - Weight 112 kg (246 lb 14.6 oz) 12/17/2024 4:35 PM EDT self reported Height 167.6 cm (5' 6 ) 12/17/2024 4:35 PM EDT self reported Body Mass Index 39.85 12/17/2024 4:35 PM EDT Plan of Treatment Health Maintenance Due Date Last Done Comments HIV Screening 1960 MMR Vaccines (1 of 1 - Standard series) 12/08/1959 Varicella Vaccines (1 of 2 - 13+ 2-dose series) 12/08/1971 Hepatitis C Screening 1976 DTaP/Tdap/Td Vaccines (2 - Td or Tdap) 08/03/2024 07/06/2024 Influenza Vaccine (#1) 2025 , 10/06/2023, 06/28/2022, Additional history exists HIB Vaccines Aged Out No longer eligi ble based on patient's age to complete this topic HPV Vaccines Aged Out No longer eligi ble based on patient's age to complete this topic Hepatitis A Vaccines Aged Out No long er eligible based on patient's age to complete this topic Hepatitis B Vaccines Aged Out No long er eligible based [...] on patient's age to complete this topic Insurance AET MEDICARE [facility] MEDICARE Care Teams Marketing Consultant Relationship Specialty Start Date End Date [facility] [address] [place] [id number] PCP - General 12/17/24
--- OUTSIDE RECORDS SUMMARY | 2025-05-17 17:33 | XMS_ITS | Encounter Summary ---
Author Organization [employer] [facility] Address [address] [place] [address] [address] [place] [address] Care Team Providers Care Retail Representative Name Role Phone Name, Tone SEPULVEDA Primary Care Provider [phone] Reason for Visit * Reason Comments Med Refill Encounter Details Date Type Department Care Team (Late st Contact Info) Description 03/17/[address] [phone] NameTone MD [address] [place] [address] [phone] Social History Tobacco Use Types Packs/Day Years [...] 07/19/2025 10:45 AM EST Office Visit [address] [phone] Tone Cool MD [address] [place] [address] 07/22/2025 1:30 PM EST Telemedicine [address] [place] [address] Tanya Ellison, RN documented as of this encounter Visit Diagnoses Not on filedocumented in this encounter Additional Health Concerns Assessment Noted Time PHQ-9 Depression Total Score: 0 12/26/19 23 1:52 PM EDT documented as of this encounter Care Teams Retail Representative Relationship Specialty Start Date End Date Name, MD Tone [address] [place] [address] PCP - General Family Medicine 08/17/19 [facility] 02/16/25 04/18/25 documented as of this encounter
--- OUTSIDE RECORDS SUMMARY | 2025-05-17 17:33 | XMS_ITS | Encounter Summary ---
Author Organization [employer] Address [address] [place] [address] Care Team Providers Care Reference Data Expert Name Role Phone Name, Tone SEPULVEDA Primary Care Provider [phone] Encounter Details Date Type Department Care Team (Latest Contact Info) Description 05/13/2025 Travel Social History Tobacco Use Types Packs/Day Years [...] still 3 05/13/2025 1:08 PM EDT Tanya Ellison, SHUBHAM Becoming easily annoyed or irritable 2 01/2025 1:08 PM EDT Tanya Ellison, SHUBHAM Feeling afraid as if somethi ng awful might happen 2 05/13/2025 1:08 PM EDT Tanya Ellison, SHUBHAM ESTHER-7 Total Score 18 05/13/2025 1:08 PM EDT Tanya Ellison, RN documented as of this encounter Plan of Treatment Upcoming Encounters Date Type Department Care Team (Late st Contact Info) Description 07/19/2025 10:45 AM EST Office Visit [address] [address] Name, MD Tone [address] [place] [address] 07/22/2025 1:30 PM EST Telemedicine [address] [address] Tanya Ellison, SHUBHAM documented as of this encounter Visit Diagnoses Not on filedocumented in this encounter Additional Health Concerns Assessment Noted Time PHQ-9 Depression Total Score: 14 025 1:40 PM EDT documented as of this encounter Care Teams Reference Data Expert Relationship Specialty Start Date End Date NameTone MD [address] [place] [phone] PCP - General Family Medicine 08/17/19 documented as of this encounter
--- OUTSIDE RECORDS SUMMARY | 2025-05-17 17:33 | XMS_ITS | Encounter Summary ---
Author Organization [employer] [facility] Address [address] [facility] 7t [place] [address] Care Team Providers Care Medical Center Representative Name Role Phone Name, Tone SEPULVEDA Primary Care Provider [phone] Reason for Visit * Reason Comments Med Refill Encounter Details Date Type Department Care Team ([facility] st Contact Info) Description 06/23/2024 Refill [facility] [address] [place] [address] Name, MD Tone [address] [place], [place] [phone] Anxiety disorder, unspecified Social History Tobacco Use [...] Visit [facility] [address] [place] [phone] Name, MD Tone [address] [place] [address] 07/22/2025 1:30 PM EST Telemedicine [facility] [address] [place] [address] Tanya Ellison, SHUBHAM documented as of this encounter Visit Diagnoses Diagnosis Anxiety disorder, unspecified documented in this encounter Additional Health Concerns Assessment Noted Time PHQ-9 Depression Total Score: 11 024 2:10 PM EDT documented as of this encounter Care Teams Medical Center Representative Relationship Specialty Start Date End Date Name, MD Tone [address] [place] [phone] PCP - General Family Medicine 08/17/19 Annie SETHIA 02/16/25 04/18/25 documented as of this encounter
--- OUTSIDE RECORDS SUMMARY | 2025-05-17 17:33 | XMS_ITS | Encounter Summary ---
Author Organization [facility] Address [address] [place] [address] Phone Care Team Providers Care Tape Sewer Name Role Phone Kiara Mcgrath Primary Care Provider [facility] Primary Care Provider [phone] Reason for Visit * Reason Comments Med Refill Encounter Details Date Type Department Care Team (Late st Contact Info) Description 06/04/2024 Refill [facility] [address] [place] [address] Kobe John MD [address] [place] [address] Social History Tobacco Use Types Packs/Day Years [...] - 06/04/2024 3:00 PM EDT Copied from [facility] #[id number]. Topic: Access To Service >> Jun 04, 2024 2:57 PM Nida Santiago wrote: Patient called front desk assistant stating that she is completely out of her Cyclobenzaprine (Flexeril) medication and is in a lot of pain. Best number to reach her is [phone] documented in this encounter Plan of Treatment Not on file documented as of this encounter Visit Diagnoses Not on filedocumented in this encounter Care Teams Tape Sewer Relationship Specialty Start Date End Date Kiara Mcgrath PCP - General 05/06/24 12/16/24 [facility] [address] [place] [phone] PCP - General 12/17/24 documented as of this encounter
--- OUTSIDE RECORDS SUMMARY | 2025-05-17 17:33 | XMS_ITS | Encounter Summary ---
Author Organization [employer] [facility] Address [address] [place] [address] Care Team Providers Care Plumber And Tinner Name Role Phone Name, Tone SEPULVEDA Primary Care Provider [phone] Reason for Visit * Reason Onset Date Comments EXTENSION SPECIALIST Agreement renewed 05/13/2025 Encounter Details Date Type Department Care Team ([facility] st Contact Info) Description 05/13/2025 Telephone [facility] [address] [place] [address] Tanya Ellison RN EXTENSION SPECIALIST Agreement renewed Social History Tobacco Use Types Packs/Day Years [...] the past 12 months, has t he [employer] gas, oil or water company threatened to [...] worrying 3 05/13/2025 1:08 PM EDT Tanya Ellison, RN Worrying too much about diff erent things 2 05/13/2025 1:08 PM EDT Terra, Tanya, RN Trouble relaxing 3 05/13/2025 1:08 PM [...] Telephone Encounter - Tanya Ellison RN - 05/13/2025 1:25 PM EDT Pt had Tele EXTENSION SPECIALIST Renewal appt today BPI completed on: 05/13/2025 , pain severity score: 9, activity interference score: 9 BPI completed on: 07/30/2024 , pain severity score: 10, activity interference score: 4 ESTHER-7 Total Score: 18 (05/13/2025 1:08 PM) Previous ESTHER-7 done: 07/30/2024, score: 20 documented in this encounter Plan of Treatment Upcoming Encounters Date Type Department Care Team (Late st Contact Info) Description 07/19/2025 10:45 AM EST Office Visit [address] [address] Name, MD Tone [address] [place] [address] 07/22/2025 1:30 PM EST Telemedicine [address] [address] Tanya Ellison RN documented as of this encounter Visit Diagnoses Not on filedocumented in this encounter Additional Health Concerns Assessment Noted Time PHQ-9 Depression Total Score: 14 12/31/ 025 1:40 PM EDT documented as of this encounter Care Teams Plumber And Tinner Relationship Specialty Start Date End Date Name, MD Tone [address] [place] [address] PCP - General Family Medicine 08/17/19 documented as of this encounter
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
--- OUTSIDE RECORDS SUMMARY | 2025-05-17 17:33 | XMS_ITS | Encounter Summary ---
Author Organization [employer] Address [address] [facility] 7t [place] [address] Care Team Providers Care Agricultural Commodities Inspector Name Role Phone Name, Tone SEPULVEDA Primary Care Provider [phone] Reason for Visit * Reason Comments Med Refill Encounter Details Date Type Department Care Team ([facility] st Contact Info) Description 07/21/2024 Refill [facility] [address] [place] [address] Name, MD Tone [address] [place], [place] [phone] Chronic back pain, unspecified back location, unspecified [...] Description 07/19/2025 10:45 AM EST Office Visit [address] [address] NameTone MD [address] [place] [address] 07/22/2025 1:30 PM EST Telemedicine [address] [address] Tanya Ellison RN documented as of this encounter Visit Diagnoses Diagnosis Chronic back pain, unspecified back location, unspecified back pain laterality documented in this encounter Additional Health Concerns Assessment Noted Time PHQ-9 Depression Total Score: 11 024 2:10 PM EDT documented as of this encounter Care Teams Agricultural Commodities Inspector Relationship Specialty Start Date End Date Name, MD Tone [address] [place] [address] PCP - General Family Medicine 08/17/19 Annie SETHIA 02/16/25 04/18/25 documented as of this encounter
--- OUTSIDE RECORDS SUMMARY | 2025-05-17 17:33 | XMS_ITS | Encounter Summary ---
Author Organization [employer] Address [address] [facility] 7t [place] [address] Care Team Providers Care Stenotype Machine Operator Name Role Phone Name, Tone SEPULVEDA Primary Care Provider [phone] Reason for Visit * Reason Onset Date Comments Medication Question 05/11/2024 Encounter Details Date Type Department Care Team ([facility] st Contact Info) Description 05/11/2024 Telephone [facility] [address] [place] [address] Name, MD Tone [address] [place] [address] Medication Question Social History Tobacco Use Types [...] lancets, No answer. LVM to callback on [phone]. * Telephone Encounter - Vicky Hoskins - 05/11/2024 10:26 AM EDT Tc from pt requesting free style lancets . Did not see on recent med list. documented in this encounter Plan of Treatment Upcoming Encounters Date Type Department Care Team (Late st Contact Info) Description 07/19/2025 10:45 AM EST Office Visit [facility] [address] [place] [phone] Name, MD Tone [address] [place] [address] 07/22/2025 1:30 PM EST Telemedicine [facility] [address] [place] [phone] Tanya Ellison RN documented as of this encounter Visit Diagnoses Not on filedocumented in this encounter Additional Health Concerns Assessment Noted Time PHQ-9 Depression Total Score: 11 024 2:10 PM EDT documented as of this encounter Care Teams Stenotype Machine Operator Relationship Specialty Start Date End Date Name, MD Tone [address] [place] [address] PCP - General Family Medicine 08/17/19 Annie HERNANDEZ 02/16/25 04/18/25 documented as of this encounter
--- OUTSIDE RECORDS SUMMARY | 2025-05-17 17:33 | XMS_ITS | Encounter Summary ---
Author Organization [employer] Address [address] [facility] 7t [place] [address] Care Team Providers Care Plc Engineer Name Role Phone Name, Tone SEPULVEDA Primary Care Provider Reason for Visit * Reason Comments Med Refill Encounter Details Date Type Department Care Team ([facility] st Contact Info) Description 09/13/2024 Refill [facility] [address] [place] [address] Name, MD Tone [address] [place], [place] [phone] Nausea and vomiting in adult Social History [...] Description 07/19/2025 10:45 AM EST Office Visit [facility] [address] [place] [phone] Name, MD Tone [address] [place] [address] 07/22/2025 1:30 PM EST Telemedicine [facility] [address] [place] [address] Tanya Ellison, [place] documented as of this encounter Visit Diagnoses Diagnosis Nausea and vomiting in adult documented in this encounter Additional Health Concerns Assessment Noted Time PHQ-9 Depression Total Score: 11 024 2:10 PM EDT documented as of this encounter Care Teams Plc Engineer Relationship Specialty Start Date End Date Name, MD Tone [address] [place] [address] PCP - General Family Medicine 08/17/19 Annie SETHIA 02/16/25 04/18/25 documented as of this encounter
--- OUTSIDE RECORDS SUMMARY | 2025-05-17 17:33 | XMS_ITS | Encounter Summary ---
Author Organization [employer] Address [address] [facility] 7t [place] [address] Care Team Providers Care Drop Wire Operator Name Role Phone Name, Tone SEPULVEDA Primary Care Provider [phone] Reason for Visit * Reason Comments Med Refill Encounter Details Date Type Department Care Team ([facility] st Contact Info) Description 08/30/2024 Refill [facility] MEDICINE [address] [place] [address] Name, MD Tone [address] [place], [place] [phone] Chronic back pain, unspecified back location, unspecified [...] Description 07/19/2025 10:45 AM EST Office Visit [address] [address] NameTone MD [address] [place] [address] 07/22/2025 1:30 PM EST Telemedicine [address] [address] Tanya Ellison RN documented as of this encounter Visit Diagnoses Diagnosis Chronic back pain, unspecified back location, unspecified back pain laterality documented in this encounter Additional Health Concerns Assessment Noted Time PHQ-9 Depression Total Score: 11 024 2:10 PM EDT documented as of this encounter Care Teams Drop Wire Operator Relationship Specialty Start Date End Date Name, MD Tone [address] [place] [address] PCP - General Family Medicine 08/17/19 Annie SETHIA 02/16/25 04/18/25 documented as of this encounter
--- OUTSIDE RECORDS SUMMARY | 2025-05-17 17:33 | XMS_ITS | Encounter Summary ---
Author Organization [employer] Address [address] [facility] 7t [place] [address] Care Team Providers Care Pace Analyst Name Role Phone Name, Tone SEPULVEDA Primary Care Provider [phone] Reason for Visit * Reason Onset Date Comments Nurse Triage 02/10/2025 Encounter Details Date Type Department Care Team ([facility] st Contact Info) Description 02/10/2025 Telephone [facility] MEDICINE [address] [place], [place] [phone] Name, MD Tone [address] [place] [address] Nurse Triage Social History Tobacco Use Types [...] Telephone Encounter - Sanjuana Modi RN - 02/10/2025 11:06 AM EDT Call returned to Annie Estes to triage below. Reports having a fall on 01/29/25 when walking to the bathroom. Did seek ER at [facility] via EMS but pt left without being seen. Per pt having to use O2 2.5L continuously. Back pain and chest pain with inspiration. Pt denies any ALIZE sx. Per pt is taking rx pain meds. Pt reports using albuterol TID. Pt advised of disposition, agrees too seek ER at [facility] for evaluation. Sent to team for [facility] ER status check PRN. Protocol Used: Back Injury (Adult) Protocol-Based Disposition: Go to Office or Video Visit Now Positive Triage Question: * Severe back pain (e.g., excruciating, unable to do any normal activities) and not improved after pain medicine and Care Advice * All higher-acuity triage questions were negative Care Advice Discussed: * Reassurance and Education - Direct Blow (Contusion, Bruise) * Rest vs. Movement * Reasons To Call Back - Severe pain lasts over 2 hours after pain medicine and ice - Swelling or bruise becomes over 4 inches (10 cm; more than size of palm). - You become worse * Telephone Encounter - Tutu Velazquez - 02/10/2025 10:47 AM EDT Symptom: Back Pain - Not From Injury Outcome: Transfer to a nurse or provider NOW! Reason: Age over 30: sudden AND severe upper back pain documented in this encounter Plan of Treatment Upcoming Encounters Date Type Department Care Team (Late st Contact Info) Description 07/19/2025 10:45 AM EST Office Visit [facility] MEDICINE [address] [place] [phone] Name, MD Tone [address] [place] [address] 07/22/2025 1:30 PM EST Telemedicine [facility] [address] [place] [address] Tanya Ellison, RN documented as of this encounter Visit Diagnoses Not on filedocumented in this encounter Additional Health Concerns Assessment Noted Time PHQ-9 Depression Total Score: 14 12/31/ 025 1:40 PM EDT documented as of this encounter Care Teams Pace Analyst Relationship Specialty Start Date End Date Name, MD Tone [address] [place] [address] PCP - General Family Medicine 08/17/19 Annie SETHIA 02/16/25 04/18/25 documented as of this encounter
--- OUTSIDE RECORDS SUMMARY | 2025-05-17 17:33 | XMS_ITS | Encounter Summary ---
Author Organization [employer] Address [address] [facility] 7t [place] [address] Care Team Providers Care Production Planning Supervisor Name Role Phone Name, Tone SEPULVEDA Primary Care Provider [phone] Reason for Visit * Reason Comments Med Refill Encounter Details Date Type Department Care Team ([facility] st Contact Info) Description 09/01/2024 Refill [facility] MEDICINE [address] [place] [address] Name, MD Tone [address] [place], [place] [phone] Chronic back pain, unspecified back location, unspecified [...] Description 07/19/2025 10:45 AM EST Office Visit [address] [address] NameTone MD [address] [place] [address] 07/22/2025 1:30 PM EST Telemedicine [address] [address] Tanya Ellison RN documented as of this encounter Visit Diagnoses Diagnosis Chronic back pain, unspecified back location, unspecified back pain laterality documented in this encounter Additional Health Concerns Assessment Noted Time PHQ-9 Depression Total Score: 11 024 2:10 PM EDT documented as of this encounter Care Teams Production Planning Supervisor Relationship Specialty Start Date End Date Name, MD Tone [address] [place] [address] PCP - General Family Medicine 08/17/19 Annie SETHIA 02/16/25 04/18/25 documented as of this encounter
== END 2025-05-17 15:54 | disposition home or self-care (01) ==
LOC: HO.HUSH 15:11
PROVIDERS: PCP Internal Medicine Geriatric Medicine; Visit Provider Nurse Practitioner Family
DX: N32.81 Overactive bladder (principal); N39.0 Urinary tract infection, site not specified; N39.46 Mixed incontinence; Z13.9 Encounter for screening, unspecified
CPT/HCPCS: 99214; G2211

== ENCOUNTER 2025-08-17 14:00 | Outpatient (REF) | payer OTHER, SELFPAY ==
--- OUTSIDE RECORDS SUMMARY | 2025-08-14 00:03 | XMS_ITS | Encounter Summary ---
Author Organization [facility] Address [address] [place] [address] Care Team Providers Care Almond Blancher Hand Name Role Phone Name, Tone SEPULVEDA Primary Care Provider [phone] Reason for Visit * Reason Comments Abdominal Pain Encounter Details Date Type Department Care Team ([facility] st Contact Info) Description 08/14/2025 12:03 AM EST - 08/14/2025 9:02 AM EST [facility] Emergency [address] [place] [phone] Tay Morgan MD [address] [place] [id number] Tracie Cooper MD [address] [place] [address] Lower abdominal pain (Primary Dx); Nausea vomiting and diarrhea Discharge Disposition: Home or Self Care Social History Tobacco Use Types Packs/Day Years Used Date Smoking Tobacco: Heavy Smoker Cigarettes 0.8 49.6 Started: 976; Last attempted to quit: 09/08/2013 Passive Smoke Exposure: Current Smokeless Tobacco: Never Tobacco Cessation:Ready to Q uit: Not Asked; Counseling Given: Not Answered Alcohol Use Standard Drinks/Week Comments No 0 (1 standard drink = 0.6 oz pur e alcohol) Interpersonal Safety Answer Date Record ed Physical Abuse Unrecognized value 03/04/2025 Verbal Abuse Unrecognized value 03/04/2025 Comments No Sex and Gender Information Value Date Recorded Sex Assigned at Not on file Legal Sex Female 4:56 PM EST Gender Identity Not on file Sexual Orientation Not on file documented as of this encounter Last Filed Vital Signs Vital Sign Reading Time Taken Comments Blood Pressure 107/67 08/14/2025 6:55 AM EST Pulse 65 08/14/2025 6:55 AM EST Temperature 36.4 C (97.5 F) 08/14/2025 6:55 AM EST Respiratory Rate 18 08/14/2025 6:55 AM EST Oxygen Saturation 95% 08/14/2025 6:55 AM EST Inhaled Oxygen Concentration - - Weight 116 kg (256 lb) 08/14/2025 12:23 AM EST Height 167.6 cm (5' 6 ) 08/14/2025 12:23 AM EST Body Mass Index 41.32 08/14/2025 12:23 AM EST documented in this encounter Functional Status * Are you deaf or do you have serious difficulty hearing? Answer Date of Assessment Author No 03/03/2025 10:25 PM EDT Katelynn Neves RN * Are you blind or do you have serious difficulty seeing, even when wearing glasses? Answer Date of Assessment Author No 03/03/2025 10:25 PM EDT Katelynn Neves RN * Do you have serious difficulty walking or climbing stairs? Answer Date of Assessment Author Yes 03/03/2025 10:25 PM EDT Katelynn Neves RN * Do you have serious difficulty dressing or bathing? Answer Date of Assessment Author No 03/03/2025 10:25 PM EDT Katelynn Neves RN * Because of a physical, mental, or emotional condition, do you have serious difficulty doing errandsalone such as visiting the doctor? Answer Date of Assessment Author No 03/03/2025 10:25 PM EDT Katelynn Neves RN * Calculated C-SSRS Risk Score (Lifetime/Recent) Answer Date of Assessment Author No Risk Indicated 08/14/2025 12:25 AM EST Lorenza Ramos RN * [place] Suicide Severity Rating Scale (Screener/Recent Self-Report) Question Answer Date of Assessment Author 1. Wish to be (Past 1 Month) No 08/14/2025 12:25 AM EST Colby Atkins RN 2. Non-Specific Active Suici luiz Thoughts (Past 1 Month) No 08/14/2025 12:25 AM EST Bert Atkins RN 6. Suicidal Behavior (Lifetime) No 5 12:25 AM Lorenza Meléndez RN documented as of this encounter Mental Status * Because of a physical, mental, or emotional condition, do you have serious difficulty concentrating, remembering, or making decisions? (5 years old or older) Answer Entry Date Author No 03/03/2025 10:25 PM EDT Katelynn Neves RN documented in this encounter Discharge Instructions * Attachments The following attachments cannot be sent through Care Everywhere. * Abdominal Pain (Citizen Of [place]) * Nausea and Vomiting (Citizen [place]) documented in this encounter Medications at Time of Discharge alcohol swabs (Alcohol Prep Pads) pads, medicated Apply 1 Each topically daily. 2 aspirin 81 mg EC tablet Take 1 tablet (81 mg total) by mouth 1 (one) time each day in the morning. 3 budesonide-formoter oL (Symbicort) 160-4.5 mcg/actuation inhaler INHALE 2 PUFFS BY MOUTH TWICE DAILY. RINSE MOUTH AFTER USING. 3 clonazePAM (KlonoPIN) 1 mg tablet Take 1 Tablet by mouth 2 times daily as needed. 2 cyclobenzaprine (FLEXERIL) 10 mg tablet Take 1 Tablet by mouth 3 times daily. 2 cycloSPORINE 0.05 % drops 1 Drop 2 times daily. fluticasone propionate (FLONASE) 50 mcg/actuation nasal spray 1 [place] by Nasal route 2 times daily. 7 hydrocortisone (CORTEF) 10 mg tablet Take 1 tablet (10 mg total) by mouth 2 (two) times a day. 2 ipratropium-albuter oL (DUONEB) 0.5-2.5 mg/3 mL nebulizer solutionIndications :COPD with acute exacerbation (CMS/HCC V24, CMS/HCC V28) Take 3 mL by nebulization every 6 (six) hours if needed for wheezing or shortness of breath. 360 mL 5 isosorbide mononitrate (IMDUR) 30 mg 24 hr tablet Take 1 tablet (30 mg total) by mouth 1 (one) time each day. Do not crush or chew. lactulose (CHRONULAC) solution TAKE 30 ML (20 G) BY MOUTH TWICE A DAY 5400 mL 5 levothyroxine (SYNTHROID, LEVOTHROID) 150 mcg tablet TAKE 1 TAB EVERY DAY SCHEDULE LAB WORK 1 MONTH AFTER SURGERY TO ASSESS THYROID LEVELS 3 loperamide (IMODIUM) 2 mg capsule Take 1 capsule (2 mg total) by mouth 4 (four) times a day if needed for diarrhea for up to 3 days. 12 capsule 5 08/17/20 25 miscellaneous medical supply misc CPAP Historical (HISTORICAL CPAP) : Inhale into the lungs. BHIR-pressure 8-16. miscellaneous medical supply misc Misc. Devices (BATHTUB SAFETY RAIL) Misc: 1 Bar by Does not apply route daily. To use in shower for safety 6 montelukast (SINGULAIR) 10 mg tablet Take 1 tablet (10 mg total) by mouth at bedtime. 2 naloxone (NARCAN) 4 mg/0.1 mL nasal spray FOR SUSPECTED OPIOID OVERDOSE. SPRAY 0.1mL IN ONE NOSTRIL. REPEAT IN ALTERNATE NOSTRIL 2-3 MINUTES IF NEEDED. SEEK MEDICAL ATTENTION IMMEDIATELY EVEN IF PATIENT RESPONDS. 3 nicotine (NICODERM CQ) 14 mg/[address] 1 patch on the skin 1 (one) time each day at the same time. 30 each 5 nitroglycerin (NITROSTAT) 0.[address] 1 tablet (0.4 mg total) under the tongue as needed. 2 ondansetron ODT (ZOFRAN-ODT) 4 mg disintegrating tabletIndications:Sneha schwartz abdominal pain,Nausea vomiting and diarrhea Let 1 tablet dissolve under the tongue three times daily as needed for nausea or vomiting. 10 tablet 5 08/21/20 25 oxyCODONE (ROXICODONE) 15 mg immediate release tablet Take 15 mg by mouth 4 times daily. Oxygen Therapy (O2) gas Inhale into the lungs. 2 liters nasal cannula for nocturnal use pantoprazole (PROTONIX) 40 mg EC tablet Take 1 tablet (40 mg total) by mouth 2 (two) times a day before meals. Do not crush, chew, or split. 180 each 3 5 08/03/20 26 phenytoin (DILANTIN) 100 mg ER capsule Take 2 capsules (200 mg total) by mouth 2 (two) times a day. 9 polyethylene glycol (MIRALAX) 17 gram packet Take 17 g by mouth 1 (one) time each day. 510 g 11 5 03/24/20 26 pregabalin (LYRICA) 300 mg capsule Take 300 mg by mouth 2 times daily. senna 8.6 mg tablet TAKE 1 TABLET BY MOUTH EVERY DAY 90 tablet 3 5 sertraline (ZOLOFT) 25 mg tablet Take 1 tablet (25 mg total) by mouth 1 (one) time each day. 3 topiramate (TOPAMAX) 25 mg tablet Take 1 tablet (25 mg total) by mouth 2 (two) times a day. 2 umeclidinium (Incruse Ellipta) 62.5 mcg/actuation inhalation Inhale 1 puff by mouth 1 (one) time each day. Ventolin HFA 90 mcg/actuation inhaler INHALE 2 PUFFS INTO THE LUNGS EVERY 4 HOURS NEEDED FOR WHEEZING OR SHORTNESS OF BREATH 18 each 2 4 documented as of this encounter Ordered Prescriptions Prescription Sig Dispense Quantity Refills Last Filled Start Date End Date loperamide (IMODIUM) 2 mg capsule Take 1 capsule (2 mg total) by mouth 4 (four) times a day if needed for diarrhea for up to 3 days. 12 capsule 08/14/2025 5 ondansetron ODT (ZOFRAN-ODT) 4 mg disintegrating tabletIndications:Lo wer abdominal pain,Nausea vomiting and diarrhea Let 1 tablet dissolve under the tongue three times daily as needed for nausea or vomiting. 10 tablet 08/14/2025 5 documented in this encounter Discharge Disposition Disposition Code Departure Means Destination Comment s Home or Self Care documented in this encounter Progress Notes * Linda Baxter RN - 08/14/2025 6:49 AM EST PT UNABLE TO VOID AT THIS TIME * Lorenza Atkins RN - 08/14/2025 1:30 AM EST When this RN went into room to give IV fluids and IV toradol, patient states That is going to do nothing for me, they usually give me dilaudid or even fentanyl . This RN explained that this medication is very good for inflammation and patient states Yeah maybe it'll help my leg swelling but not my pain, I have been dealing with this pain for years . Patient is currently resting comfortably in bed, respirations are even and non labored, patient speaking in a calm even tone, patient is on phonewatching a movie. Provider informed. Lorenza Atkins RN 08/14/25 0153 * Lorenza Atkins RN - 08/14/2025 12:05 AM EST Patient comes in from home, c/o /10 abd pain in lower umbilical pain with diarrhea x 2 weeks, denies N/V, patient also endorsing general weakness with difficulty walking * Tracie Cooper MD - 08/13/2025 11:59 PM EST This patient's care was signed out to me by the offgoing provider. Please see her/his note for further details regarding initial presentation, history of present illness, physical exam, and medical decision making. At time of signout, the following was pending: ED Course as of 08/14/25 0758 [place] Aug 14, 2025 0130 Signed out pending UA, CT A/P [EK] 0530 Urinalysis with reflex microscopic and culture(!) Appears contaminated [EK] 0532 CT Abdomen Pelvis w Contrast IMPRESSION: 1. No acute inflammatory process identified within the abdomen or pelvis. 2. Colonic diverticulosis. No CT evidence for acute diverticulitis. [EK] 0756 Urinalysis with reflex microscopic and culture(!) negative [EK] [address] imaging and repeat straight cath urinalysis are reassuring. No clear etiology for patient's pain. Advise close PCP follow-up as she may need referral to gastroenterology. Zofran and Imodium prescribed. Discharged home in stable condition with ED return precautions provided. [EK] ED Course User Index [EK] Tracie Cooper MD Clinical Impressions as of 08/14/25 0758 Lower abdominal pain Nausea vomiting and diarrhea CT Abdomen Pelvis w Contrast Final Result 1. No acute inflammatory process identified within the abdomen or pelvis. 2. Colonic diverticulosis. No CT evidence for acute diverticulitis. This document has been electronically signed by: Brent Nolasco MD on 08/14/2025 05:06:28 Labs Reviewed COMPREHENSIVE METABOLIC PANEL - Abnormal Result Value Sodium 139 Potassium 4.1 Chloride 105 CO2 30 Anion Gap 4 Glucose 100 BUN 10 Creatinine 0.64 eGFR 98 BUN/Creatinine Ratio 15.6 Calcium 9.1 AST (SGOT) 32 ALT (SGPT) 52 Alkaline Phosphatase 139 (*) Total Protein 6.9 Albumin 4.4 Total Bilirubin 0.2 CBC WITH AUTO DIFFERENTIAL - Abnormal WBC 8.7 RBC 4.60 Hemoglobin 12.3 Hematocrit 40.2 MCV 87.2 MCH 26.7 (*) MCHC 30.6 (*) RDW 18.2 (*) Platelets 342 MPV 9.7 NRBC 0.0 NRBC Absolute 0.00 Neutrophils Relative 71.0 Lymphocytes Relative 18.6 Monocytes Relative 7.2 Eosinophils Relative 2.1 Basophils Relative 0.9 Immature Granulocytes Relative 0.2 Neutrophils Absolute 6.17 Lymphocytes Absolute 1.62 Monocytes Absolute 0.63 Eosinophils Absolute 0.18 Basophils Absolute 0.08 Immature Granulocytes Absolute 0.02 URINALYSIS WITH REFLEX MICROSCOPIC AND CULTURE - Abnormal Specific [place] Urine 1.034 (*) pH, Urine 5.5 Leukocytes, Urine Small (*) Nitrite, Urine Negative Protein, Urine Trace Glucose, Urine Negative Ketones, Urine Trace (*) Urobilinogen, Urine 1.0 Bilirubin, Urine Negative Blood, Urine Negative RBC, Urine 4 WBC, Urine 4 Squamous Epithelial, Urine >100 (*) Bacteria, Urine Many (*) Hyaline Casts, Urine 4 (*) Mucus, Urine Negative URINALYSIS WITH REFLEX MICROSCOPIC AND CULTURE - Abnormal Specific [place] Urine >1.045 (*) pH, Urine 5.0 Leukocytes, Urine Negative Nitrite, Urine Negative Protein, Urine Negative Glucose, Urine Negative Ketones, Urine Negative Urobilinogen, Urine 0.2 Bilirubin, Urine Negative Blood, Urine Negative LIPASE - Normal Lipase 29 CULTURE URINE CBC AND DIFFERENTIAL Narrative: The following orders were created for panel order CBC and differential. Procedure Abnormality Status --------- ------ CBC auto differential[[id number]] Abnormal Final result Please view results for these tests on the individual orders. URINALYSIS WITH REFLEX MICROSCOPIC AND CULTURE Narrative: The following orders were created for panel order Urinalysis with reflex microscopic and culture. Procedure Abnormality Status --------- ------ Urinalysis with reflex ...[[id number]] Abnormal Final result Adams urine culture tube[[id number]] Final result Please view results for these tests on the individual orders. URINALYSIS WITH REFLEX MICROSCOPIC AND CULTURE Narrative: The following orders were created for panel order Urinalysis with reflex microscopic and culture. Procedure Abnormality Status --------- ------ Urinalysis with reflex ...[[id number]] Abnormal Final result Adams urine culture tube[[id number]] In process Please view results for these tests on the individual orders. Clinical Impression(s): Final diagnoses: [R10.30] Lower abdominal pain [R11.2, R19.7] Nausea vomiting and diarrhea Discharge Previous Medications ALCOHOL SWABS (ALCOHOL PREP PADS) PADS, MEDICATED Apply 1 Each topically daily. ASPIRIN 81 MG EC TABLET Take 1 tablet (81 mg total) by mouth 1 (one) time each day in the morning. BUDESONIDE-FORMOTEROL (SYMBICORT) 160-4.5 MCG/ACTUATION INHALER INHALE 2 PUFFS BY MOUTH TWICE DAILY. RINSE MOUTH AFTER USING. CLONAZEPAM (KLONOPIN) 1 MG TABLET Take 1 Tablet by mouth 2 times daily as needed. CYCLOBENZAPRINE (FLEXERIL) 10 MG TABLET Take 1 Tablet by mouth 3 times daily. CYCLOSPORINE 0.05 % DROPS 1 Drop 2 times daily. FLUTICASONE PROPIONATE (FLONASE) 50 MCG/ACTUATION NASAL SPRAY 1 [place] by Nasal route 2 times daily. HYDROCORTISONE (CORTEF) 10 MG TABLET Take 1 tablet (10 mg total) by mouth 2 (two) times a day. IPRATROPIUM-ALBUTEROL (DUONEB) 0.5-2.5 MG/3 ML NEBULIZER SOLUTION Take 3 mL by nebulization every 6(six) hours if needed for wheezing or shortness of breath. ISOSORBIDE MONONITRATE (IMDUR) 30 MG 24 HR TABLET Take 1 tablet (30 mg total) by mouth 1 (one) timeeach day. Do not crush or chew. LACTULOSE (CHRONULAC) SOLUTION TAKE 30 ML (20 G) BY MOUTH TWICE A DAY LEVOTHYROXINE (SYNTHROID, LEVOTHROID) 150 MCG TABLET TAKE 1 TAB EVERY DAY SCHEDULE LAB WORK 1 MONTHAFTER SURGERY TO ASSESS THYROID LEVELS MISCELLANEOUS MEDICAL SUPPLY MIS CPAP Historical (HISTORICAL CPAP) : Inhale into the lungs. BHIR-pressure 8-16. MISCELLANEOUS MEDICAL SUPPLY MISC Misc. Devices (BATHTUB SAFETY RAIL) Misc: 1 Bar by Does not applyroute daily. To use in shower for safety MONTELUKAST (SINGULAIR) 10 MG TABLET Take 1 tablet (10 mg total) by mouth at bedtime. NALOXONE (NARCAN) 4 MG/0.1 ML NASAL SPRAY FOR SUSPECTED OPIOID OVERDOSE. SPRAY 0.1mL IN ONE NOSTRIL. REPEAT IN ALTERNATE NOSTRIL 2-3 MINUTES IF NEEDED. SEEK MEDICAL ATTENTION IMMEDIATELY EVEN IF PATIENT RESPONDS. NICOTINE (NICODERM CQ) 14 MG/[address] 1 patch on the skin 1 (one) time each day at the same time. NITROGLYCERIN (NITROSTAT) 0.[address] 1 tablet (0.4 mg total) under the tongue as needed. OXYCODONE (ROXICODONE) 15 MG IMMEDIATE RELEASE TABLET Take 15 mg by mouth 4 times daily. OXYGEN THERAPY (O2) GAS Inhale into the lungs. 2 liters nasal cannula for nocturnal use PANTOPRAZOLE (PROTONIX) 40 MG EC TABLET Take 1 tablet (40 mg total) by mouth 2 (two) times a day before meals. Do not crush, chew, or split. PHENYTOIN (DILANTIN) 100 MG ER CAPSULE Take 2 capsules (200 mg total) by mouth 2 (two) times a day. POLYETHYLENE GLYCOL (MIRALAX) 17 GRAM PACKET Take 17 g by mouth 1 (one) time each day. PREGABALIN (LYRICA) 300 MG CAPSULE Take 300 mg by mouth 2 times daily. SENNA 8.6 MG TABLET TAKE 1 TABLET BY MOUTH EVERY DAY SERTRALINE (ZOLOFT) 25 MG TABLET Take 1 tablet (25 mg total) by mouth 1 (one) time each day. TOPIRAMATE (TOPAMAX) 25 MG TABLET Take 1 tablet (25 mg total) by mouth 2 (two) times a day. UMECLIDINIUM (INCRUSE ELLIPTA) 62.5 MCG/ACTUATION INHALATION Inhale 1 puff by mouth 1 (one) time each day. VENTOLIN HFA 90 MCG/ACTUATION INHALER INHALE 2 PUFFS INTO THE LUNGS EVERY 4 HOURS NEEDED FOR WHEEZING OR SHORTNESS OF BREATH ED Medication Administration from 08/13/2025 6591 to 08/14/2025 0758 Date/Time Order Dose Route Action Action by 08/14/2025 005 EST sodium chloride 0.9 % bolus 1,000 mL 1,000 mL intravenous New Bag Wilbert, C 08/14/2025 0127 EST sodium chloride 0.9 % bolus 1,000 mL 0 mL intravenous Stopped Sahil, E 08/14/2025 0057 EST ketorolac (TORADOL) injection 15 mg 15 mg intravenous Given Wilbert, C 08/14/2025 0552 EST sodium chloride 0.9 % flush 10 mL 10 mL intravenous Given Sahil, E 08/14/2025 0552 EST iopamidoL (ISOVUE-370) 370 mg iodine /mL (76 %) injection 90 mL 90 mL intravenous Given Thaddeus, H 08/14/2025 0552 EST ondansetron (PF) (ZOFRAN) injection 4 mg 4 mg intravenous Given Sahil, E 08/14/2025 0552 EST morphine injection 4 mg 4 mg intravenous Given Sahil, E Tracie Cooper MD 08/14/25 0758 documented in this encounter Plan of Treatment Upcoming Encounters Date Type Department Care Team (Late st Contact Info) Description 11/29/2025 2:00 PM EDT Consult [address] [place] [id number] Guerita Marrero MD [address] [place] [address] 12/26/2025 2:45 PM EDT Office Visit Pulmonology - [place] [address] [place] [phone] Sean Heart MD [address] [place] [address] documented as of this encounter Procedures Procedure Name Priority Date/Time Associated Diagnosis Comments URINALYSIS WITH REFLEX MICROSCOPIC AND CULTURE STAT 08/14/2025 7:25 AM EST [facility] URINE CULTURE TUBE STAT 08/14/2025 7:25 AM EST URINALYSIS WITH REFLEX MICROSCOPIC AND CULTURE STAT 08/14/2025 7:[address] ABDOMEN PELVIS W CONTRAST STAT 08/14/2025 5:55 AM EST URINALYSIS WITH REFLEX MICROSCOPIC AND CULTURE STAT 08/14/2025 12:53 AM EST [facility] URINE CULTURE TUBE STAT 08/14/2025 12:53 AM EST URINALYSIS WITH REFLEX MICROSCOPIC AND CULTURE STAT 08/14/2025 12:53 AM EST CULTURE URINE STAT 08/14/2025 12:53 AM EST CBC WITH AUTO DIFFERENTIAL STAT 08/14/2025 12:30 AM EST CBC AND DIFFERENTIAL STAT 08/14/2025 12:30 AM EST LIPASE STAT 08/14/2025 12:30 AM EST COMPREHENSIVE METABOLIC PANEL STAT 08/14/2025 12:30 AM EST documented in this encounter Results * Adams urine culture tube (08/14/2025 7:25 AM EST) Extra Tube Hold for add-ons. 08/14/2025 9:02 AM [facility] Comment:Auto resulted. Urine Urine specimen obtained by clean catch procedure / Unknown Non-blood Collection / Unknown 08/14/2025 7:25 AM EST 08/14/2025 7:34 AM EST us Tracie Cooper MD LAB URINE ORDERABLES Final Res ult [facility] [address] [place] [address], [place] [phone] * (ABNORMAL) Urinalysis with reflex microscopic and culture (08/14/2025 7:25 AM EST) Specific [place] Urine >1.045(H) 1.003 - 1.030 LAB URINALYSIS - AUTOMATED METHOD 08/14/2025 7:42 AM [facility] pH, Urine 5.0 5.0 - 8.0 pH LAB URINALYSIS - AUTOMATED METHOD 08/14/2025 7:42 AM [facility] Leukocytes, Urine Negative Negative LAB URINALYSIS - AUTOMATED METHOD 08/14/2025 7:42 AM [facility] Nitrite, Urine Negative Negative LAB URINALYSIS - AUTOMATED METHOD 08/14/2025 7:42 AM [facility] Protein, Urine Negative <=Trace mg/dL LAB URINALYSIS - AUTOMATED METHOD 08/14/2025 7:42 AM [facility] Glucose, Urine Negative Negative mg/dL LAB URINALYSIS - AUTOMATED METHOD 08/14/2025 7:42 AM [facility] Ketones, Urine Negative Negative mg/dL LAB URINALYSIS - AUTOMATED METHOD 08/14/2025 7:42 AM [facility] Urobilinogen , Urine 0.2 0.2 - 1.0 mg/dL LAB URINALYSIS - AUTOMATED METHOD 08/14/2025 7:42 AM EST [facility] Bilirubin, Urine Negative Negative LAB URINALYSIS - AUTOMATED METHOD 08/14/2025 7:42 AM EST [facility] Blood, Urine Negative Negative LAB URINALYSIS - AUTOMATED METHOD 08/14/2025 7:42 AM EST [facility] Urine Urine specimen obtained by clean catch procedure / Unknown Non-blood Collection / Unknown 08/14/2025 7:25 AM EST 08/14/2025 7:34 AM EST us Tracie Cooper MD LAB URINE ORDERABLES Final Res ult [facility] [address] [place] [address], * CT Abdomen Pelvis w Contrast (08/14/2025 5:55 AM EST) Anatomical Region Laterality Modality Body Computed Tomogra phy 08/14/2025 5:06 AM EST Impressions 08/14/2025 5:06 AM EST 1. No acute inflammatory process identified within the abdomen or pelvis. 2. Colonic diverticulosis. No CT evidence for acute diverticulitis. This document has been electronically signed by: Brent Nolasco MD on 08/14/2025 05:06:28 Narrative 08/14/2025 5:06 AM EST INDICATION: Abdominal pain, acute, no prior medical history CT abdomen and pelvis with contrast Comparison: CT - CT ABD PEL W CONTRAST - 03/04/25 19:46 EDT Findings: No consolidation or effusion. Nonspecific 1.6 cm low-attenuation structure identified within the left hepatic lobe, possibly consistent with a cyst. The liver appears normal in size and contour. The gallbladder and solid organs are otherwise within normal limits. No hydronephrosis or hydroureter. No bowel obstruction, pneumoperitoneum, or pneumatosis. Tiny hiatal hernia. There is colonic diverticulosis without CT evidence for acute diverticulitis. The uterus is surgically absent. The bladder is collapsed, limiting its evaluation. Normal appendix. No acute fracture visualized. Moderate T12 vertebral body compression deformity redemonstrated. Procedure Note Brent Nolasco MD - 08/14/2025 INDICATION: Abdominal pain, acute, no prior medical history CT abdomen and pelvis with contrast Comparison: CT - CT ABD PEL W CONTRAST - 03/04/25 19:46 EDT Findings: No consolidation or effusion. Nonspecific 1.6 cm low-attenuation structure identified within the left hepatic lobe, possibly consistent with a cyst. The liver appears normalin size and contour. The gallbladder and solid organs are otherwise within normal limits. No hydronephrosis or hydroureter. No bowel obstruction, pneumoperitoneum, or pneumatosis. Tiny hiatal hernia. There is colonic diverticulosis without CT evidence for acute diverticulitis. The uterus is surgically absent. The bladder is collapsed, limiting its evaluation. Normal appendix. No acute fracture visualized. Moderate T12 vertebral body compression deformity redemonstrated. IMPRESSION: 1. No acute inflammatory process identified within the abdomen orpelvis. 2. Colonic diverticulosis. No CT evidence for acute diverticulitis. This document has been electronically signed by: Brent Nolasco MD on 08/14/2025 05:06:28 Tay Morgan MD IM CT PROCEDURES Final Result * (ABNORMAL) Culture urine (08/14/2025 12:53 AM EST) [facility] Culture, Urine 50,000-100,000 CFU/mL Klebsiella pneumoniae ssp pneumoniae(A) RATNA 08/16/2025 8:52 AM EST [facility] Comment: This is an edited result. Previous organism was Gram negative bacilli on 08/15/2025 at 0746 EST. Urine Urine specimen obtained by clean catch procedure / Unknown Non-blood Collection / Unknown 08/14/2025 12:53 AM EST 08/14/2025 5:28 AM EST Narrative Organism Antibiotic Method Susceptibility Klebsiella pneumoniae ssp pneumoniae Amoxicillin/Clavulanate RATNA <=2 ug/ml: Susceptible Klebsiella pneumoniae ssp pneumoniae Ampicillin/Sulbactam RATNA <=2 ug/ml: Susceptible Klebsiella pneumoniae ssp pneumoniae Piperacillin/Tazobactam RATNA <=4 ug/ml: Susceptible Klebsiella pneumoniae ssp pneumoniae Cefazolin (Urine) RATNA 2 ug/ml: Susceptible Klebsiella pneumoniae ssp pneumoniae Cefoxitin RATNA <=4 ug/ml: Susceptible Klebsiella pneumoniae ssp pneumoniae Ceftazidime RATNA <=0.5 ug/ml: Susceptible Klebsiella pneumoniae ssp pneumoniae Ceftriaxone RATNA <=0.25 ug/ml: Susceptible Klebsiella pneumoniae ssp pneumoniae Cefepime RATNA <=0.12 ug/ml: Susceptible Klebsiella pneumoniae ssp pneumoniae Meropenem RATNA <=0.25 ug/ml: Susceptible Klebsiella pneumoniae ssp pneumoniae Amikacin RATNA <=1 ug/ml: Susceptible Klebsiella pneumoniae ssp pneumoniae Gentamicin RATNA <=1 ug/ml: Susceptible Klebsiella pneumoniae ssp pneumoniae Ciprofloxacin RATNA <=0.06 ug/ml: Susceptible Klebsiella pneumoniae ssp pneumoniae Levofloxacin RATNA <=0.12 ug/ml: Susceptible Klebsiella pneumoniae ssp pneumoniae Nitrofurantoin RATNA 128 ug/ml: Resistant Klebsiella pneumoniae ssp pneumoniae Trimethoprim/Sulfamethoxazo le RATNA <=20 ug/ml: Susceptible Tay Morgan MD LAB MICROBIOLOGY - GENERAL ORDER MEG Final Result Performing Organization Address [facility]/ZIP Co de Phone Number [facility] [address] [place] [address], * Adams urine culture tube (08/14/2025 12:53 AM EST) Pathologist [facility] Extra Tube Hold for add-ons. 08/14/2025 2:01 AM EST [facility] Comment:Auto resulted. Urine Urine specimen obtained by clean catch procedure / Unknown Non-blood Collection / Unknown 08/14/2025 12:53 AM EST 08/14/2025 12:58 AM EST Tay Morgan MD LAB URINE ORDERABLES Final Resul t Performing Organization Address [facility]/ZIP Co de Phone Number [facility] [address] [place] [address], * (ABNORMAL) Urinalysis with reflex microscopic and culture (08/14/2025 12:53 AM EST) Specific [place] Urine 1.034(H) 1.003 - 1.030 LAB URINALYSIS - AUTOMATED METHOD 08/14/2025 5:28 AM [facility] pH, Urine 5.5 5.0 - 8.0 pH LAB URINALYSIS - AUTOMATED METHOD 08/14/2025 5:28 AM [facility] Leukocytes, Urine Small(A) Negative LAB URINALYSIS - AUTOMATED METHOD 08/14/2025 5:28 AM [facility] Nitrite, Urine Negative Negative LAB URINALYSIS - AUTOMATED METHOD 08/14/2025 5:28 AM [facility] Protein, Urine Trace <=Trace mg/dL LAB URINALYSIS - AUTOMATED METHOD 08/14/2025 5:28 AM [facility] Glucose, Urine Negative Negative mg/dL LAB URINALYSIS - AUTOMATED METHOD 08/14/2025 5:28 AM [facility] Ketones, Urine Trace(A) Negative mg/dL LAB URINALYSIS - AUTOMATED METHOD 08/14/2025 5:28 AM [facility] Urobilinogen, Urine 1.0 0.2 - 1.0 mg/dL LAB URINALYSIS - AUTOMATED METHOD 08/14/2025 5:28 AM [facility] Bilirubin, Urine Negative Negative LAB URINALYSIS - AUTOMATED METHOD 08/14/2025 5:28 AM [facility] Blood, Urine Negative Negative LAB URINALYSIS - AUTOMATED METHOD 08/14/2025 5:28 AM [facility] RBC, Urine 4 0 - 4 /HPF 08/14/2025 5:28 AM [facility] WBC, Urine 4 0 - 4 /HPF 08/14/2025 5:28 AM [facility] Squamous Epithelial, Urine >100(H) 0 - 60 /LPF 08/14/2025 5:28 AM [facility] Bacteria, Urine Many(A) Negative /HPF 08/14/2025 5:28 AM [facility] Hyaline Casts, Urine 4(H) 0 - 3 /LPF 08/14/2025 5:28 AM [facility] Mucus, Urine Negative None /HPF 08/14/2025 5:28 AM [facility] Urine Urine specimen obtained by clean catch procedure / Unknown Non-blood Collection / Unknown 08/14/2025 12:53 AM EST 08/14/2025 12:58 AM EST us Tay Morgan MD LAB URINE ORDERABLES Final Resul t [facility] [address] [place] [address], * (ABNORMAL) CBC auto differential (08/14/2025 12:30 AM EST) WBC 8.7 4.8 - 10.8 K/mcL LAB HEMETOLOGY METHOD 08/14/2025 12:43 AM [facility] RBC 4.60 3.80 - 4.80 M/mcL LAB HEMETOLOGY METHOD 08/14/2025 12:43 AM [facility] Hemoglobin 12.3 11.5 - 16.0 g/dL LAB HEMETOLOGY METHOD 08/14/2025 12:43 AM [facility] Hematocrit 40.2 35.0 - 47.0 % LAB HEMETOLOGY METHOD 08/14/2025 12:43 AM [facility] MCV 87.2 79.0 - 98.0 FL LAB HEMETOLOGY METHOD 08/14/2025 12:43 AM [facility] MCH 26.7(L) 27.0 - 32.0 pcg LAB HEMETOLOGY METHOD 08/14/2025 12:43 AM [facility] MCHC 30.6(L) 32.0 - 37.0 g/dL LAB HEMETOLOGY METHOD 08/14/2025 12:43 AM [facility] RDW 18.2(H) 11.0 - 15.0 % LAB HEMETOLOGY METHOD 08/14/2025 12:43 AM [facility] Platelets 342 130 - 400 K/mcL LAB HEMETOLOGY METHOD 08/14/2025 12:43 AM [facility] MPV 9.7 7.0 - 11.0 FL LAB HEMETOLOGY METHOD 08/14/2025 12:43 AM [facility] NRBC 0.0 <1.0 % LAB HEMETOLOGY METHOD 08/14/2025 12:43 AM [facility] NRBC Absolute 0.00 <0.10 K/mcL LAB HEMETOLOGY METHOD 08/14/2025 12:43 AM [facility] Neutrophils Relative 71.0 % LAB HEMETOLOGY METHOD 08/14/2025 12:43 AM [facility] Lymphocytes Relative 18.6 % LAB HEMETOLOGY METHOD 08/14/2025 12:43 AM [facility] Monocytes Relative 7.2 % LAB HEMETOLOGY METHOD 08/14/2025 12:43 AM [facility] Eosinophils Relative 2.1 % LAB HEMETOLOGY METHOD 08/14/2025 12:43 AM [facility] Basophils Relative 0.9 % LAB HEMETOLOGY METHOD 08/14/2025 12:43 AM [facility] Immature Granulocytes Relative 0.2 % LAB HEMETOLOGY METHOD 08/14/2025 12:43 AM [facility] Neutrophils Absolute 6.17 1.50 - 7.00 K/mcL LAB HEMETOLOGY METHOD 08/14/2025 12:43 AM [facility] Lymphocytes Absolute 1.62 1.00 - 5.00 K/mcL LAB HEMETOLOGY METHOD 08/14/2025 12:43 AM [facility] Monocytes Absolute 0.63 0.20 - 1.00 K/mcL LAB HEMETOLOGY METHOD 08/14/2025 12:43 AM EST [facility] Eosinophils Absolute 0.18 0.00 - 0.50 K/[facility] LAB HEMETOLOGY METHOD 08/14/2025 12:43 AM EST [facility] Basophils Absolute 0.08 0.00 - 0.20 K/[facility] LAB HEMETOLOGY METHOD 08/14/2025 12:43 AM EST [facility] Immature Granulocytes Absolute 0.02 0.00 - 0.03 K/[facility] HEMETOLOGY METHOD 08/14/2025 12:43 AM EST [facility] Blood Venous blood specimen / Unknown Venipuncture / Unknown 08/14/2025 12:30 AM EST 08/14/2025 12:35 AM EST us Tracie Cooper MD LAB BLOOD ORDERABLES Final Res ult Performing Organization Address City/[facility]/ZIP Co de Phone Number [facility] [address] [place] [address], [place] [phone] * Lipase (08/14/2025 12:30 AM EST) Lipase 29 12 - 53 unit/L 08/14/2025 1:11 AM EST [facility] Blood Venous blood specimen / Unknown Venipuncture / Unknown 08/14/2025 12:30 AM EST 08/14/2025 12:35 AM EST us Tracie Cooper MD LAB BLOOD ORDERABLES Final Res ult [facility] [address] [place] [address], [place] [phone] * (ABNORMAL) Comprehensive metabolic panel (08/14/2025 12:30 AM EST) Sodium 139 133 - 145 mmol/L 08/14/2025 1:11 AM [facility] Potassium 4.1 3.5 - 5.5 mmol/L 08/14/2025 1:11 AM [facility] Chloride 105 96 - 110 mmol/L 08/14/2025 1:11 AM [facility] CO2 30 21 - 32 mmol/L 08/14/2025 1:11 AM [facility] Anion Gap 4 3 - 11 08/14/2025 1:11 AM [facility] Glucose 100 70 - 100 mg/dL 08/14/2025 1:11 AM [facility] BUN 10 5 - 25 mg/dL 08/14/2025 1:11 AM [facility] Creatinine 0.64 0.50 - 1.10 mg/dL 08/14/2025 1:11 AM [facility] eGFR 98 >=60 mL/min/1. 73m2 08/14/2025 1:11 AM [facility] Comment:Calculation based on the Chronic Kidney Disease Epidemiology Collaboration (CKD-EPI) equation refit without adjustment for race. BUN/Creatinine Ratio 15.6 08/14/2025 1:11 AM [facility] Calcium 9.1 8.5 - 10.5 mg/dL 08/14/2025 1:11 AM [facility] AST (SGOT) 32 10 - 42 unit/L 08/14/2025 1:11 AM [facility] ALT (SGPT) 52 10 - 60 unit/L 08/14/2025 1:11 AM [facility] Alkaline Phosphatase 139(H) 42 - 121 unit/L 08/14/2025 1:11 AM [facility] Total Protein 6.9 6.0 - 8.0 g/dL 08/14/2025 1:11 AM [facility] Albumin 4.4 3.2 - 5.0 g/dL 08/14/2025 1:11 AM EST [facility] Total Bilirubin 0.2 0.0 - 1.4 mg/dL 08/14/2025 1:11 AM EST [facility] Blood Venous blood specimen / Unknown Venipuncture / Unknown 08/14/2025 12:30 AM EST 08/14/2025 12:35 AM EST us Tracie Cooper MD LAB BLOOD ORDERABLES Final Res ult [facility] [address] [place] [address], [place] [phone] documented in this encounter Visit Diagnoses Diagnosis Lower abdominal pain- Primary Abdominal pain, other specified site Nausea vomiting and diarrhea documented in this encounter Administered Medications Inactive Administered Medications - up to 3 most recent administrations Medication Order MAR Action Action Date Dose Rate Site iopamidoL (ISOVUE-370) 370 mg iodine /mL (76 %) injection 90 mL 90 mL, intravenous, Once in imaging, Starting on 08/14/25 at 0159, For 1 dose Given 08/14/2025 5:52 AM EST 90 mL ketorolac (TORADOL) injection 15 mg 15 mg, intravenous, Once, On 08/14/25 at 0041, For 1 dose Given 08/14/2025 12:57 AM EST 15 mg morphine injection 4 mg 4 mg, intravenous, Once, On 08/14/25 at 0528, For 1 dose Given 08/14/2025 5:52 AM EST 4 mg ondansetron (PF) (ZOFRAN) injection 4 mg 4 mg, intravenous, Once, On 08/14/25 at 0528, For 1 dose Given 08/14/2025 5:52 AM EST 4 mg sodium chloride 0.9 % bolus 1,000 mL 1,000 mL, intravenous, at 2,000 mL/hr, Administer over 30 Minutes, Once, On 08/14/25 at 0041, For 1 dose New Bag 08/14/2025 12:57 AM EST 1,000 mL 2000 mL/hr sodium chloride 0.9 % flush 10 mL 10 mL, intravenous, Once, On 08/14/25 at 0200, For 1 dose Given 08/14/2025 5:52 AM EST 10 mL documented in this encounter Active and Recently Administered Medications Times are shown in EST. Scheduled Medication Order 08/12/2025 08/13/2025 08/14/2025 iopamidoL (ISOVUE-370) 370 mg iodine /mL (76 %) injection 90 mL (COMPLETED) 90 mL, intravenous, Once in imaging, Starting on 08/14/25 at 0159, For 1 dose 0552 (Given - Provid er: Hailey Travis) ketorolac (TORADOL) injection 15 mg (COMPLETED) 15 mg, intravenous, Once, On 08/14/25 at 0041, For 1 dose 0057 (Given - Provid er: Lorenza Atkins RN) morphine injection 4 mg (COMPLETED) 4 mg, intravenous, Once, On 08/14/25 at 0528, For 1 dose 0552 (Given - Provid er: Linda Baxter RN) ondansetron (PF) (ZOFRAN) injection 4 mg (COMPLETED) 4 mg, intravenous, Once, On 08/14/25 at 0528, For 1 dose 0552 (Given - Provid er: Linda Baxter RN) sodium chloride 0.9 % bolus 1,000 mL (COMPLETED) 1,000 mL, intravenous, at 2,000 mL/hr, Administer over 30 Minutes, Once, On 08/14/25 at 0041, For 1 dose 0057 (New Bag - Prov ider: Lorenza Atkins RN)[id number] (Stopped - Provider: Linda Baxter RN) sodium chloride 0.9 % flush 10 mL (COMPLETED) 10 mL, intravenous, Once, On 08/14/25 at 0200, For 1 dose 0552 (Given - Provid er: Linda Baxter RN - Comment: administred by imaging during downtime) documented in this encounter Orders Nursing Count Last Ordered Date First Orde red Date STRAIGHT CATH 1 08/14/2025 documented in this encounter Care Teams Almond Blancher Hand Relationship Specialty Start Date End Date Name, MD Tone [address] [place] [id number] PCP - General Internal Medicine 06/19/25 documented as of this encounter
--- OUTSIDE RECORDS SUMMARY | 2025-08-15 15:00 | XMS_ITS | Encounter Summary ---
Author Organization [facility] Address [address] [place] [address] Care Team Providers Care Local Sales Associate Name Role Phone Name, Tone SEPULVEDA Primary Care Provider [phone] Reason for Visit * Reason Comments COPD F/u COPD Encounter Details Date Type Department Care Team ([facility] Contact Info) Description 08/15/2025 3:00 PM EST Office Visit Pulmonology - [place] [address] [facility] [address] [place] [address] Sean Heart MD [address] [place] [address] [phone] Multiple sclerosis (Primary Dx); Moderate COPD (chronic obstructive pulmonary disease) (CMS/HCC V24, CMS/HCC V28); Nocturnal hypoxemia; Tobacco abuse Social History Tobacco Use Types Packs/Day Years [...] Sign Reading Time Taken Comments Blood Pressure 130/74 08/15/2025 3:46 PM EST Pulse 78 08/15/2025 3:46 PM EST Temperature 36.1 C (97 F) 08/15/2025 3:46 PM EST Respiratory Rate 20 08/15/2025 3:46 PM EST Oxygen Saturation 95% 08/15/2025 3:46 PM EST Inhaled Oxygen Concentration - - Weight - - Height - - Body Mass Index - - documented in this encounter Functional Status * [...] of Assessment Author No 03/03/2025 10:25 PM Katelynn Carney RN documented as of this encounter Mental Status * Because of a physical, mental, or emotional condition, do you have serious difficulty concentrating, remembering, or making decisions? (5 years old or older) Answer Entry Date Author No 03/03/2025 10:25 PM EDKatelynn Buck RN documented in this encounter Progress Notes * Sean Heart MD - 08/15/2025 3:00 PM EST ADULT PULMONARY CONSULT CHIEF COMPLAINT or REASON FOR CONSULTATION: COPD (F/u COPD) HISTORY OF PRESENT ILLNESS: Annie Estes is a 64 y.o. years old, female with a history of severe persistent asthma and MS She still smokes 1/4 PPD, currently on Symbicort, Spiriva, Montelukast and albuterol prn. . The pt hasmultiple pets at home. Arthritis is the main limiting factor in exercise tolerance. She uses oxygen[employer]HS for her MELIA. No drowsiness driivng. Saw [employer]- dx with adrenal insuffiency. This is due to frequent asthma attack/prednisone cause. I last saw her 5 months ago, the patient was admitted for pneumonia in the summer. She has multipleER visits, the patient changed insurances and the main reason for visit is for her to be certified for oxygen. She ALLERGIES: Current Allergies[1] ACTIVE MEDICATIONS: Medications Taking[2] PROVIDER ATTESTS THAT THE MEDICATION LIST WAS OBTAINED, REVIEWED AND UPDATED. REVIEW OF SYSTEMS: GENERAL: No wt lost or fever ENT: +snoring Eye: RESPIRATORY: + cough, wheezing and dyspnea CARDIOVASCULAR: No chest pain, leg swelling or palpitations GI: No abdominal discomfort, MUSCULOSKELETAL: +backpain HEMATOLOGY/LYMPHOLOGY No prolonged bleeding, easy bruisability ENDOCRINE: no DM NEURO: + diffuse weakness due to ms : Psych: + anxiety PAST MEDICAL HISTORY: Patient Active Problem List Diagnosis Date Noted Chest pain 03/04/2025 COPD with acute exacerbation ([facility] [place], [facility] V28) 02/19/2025 Morbid obesity with BMI of 40.0-44.9, adult ([facility] V24, [facility] V28) 08/26/2024 Wrist fracture, bilateral 07/20/2019 Helicobacter pylori gastritis 04/14/2019 Moderate COPD (chronic obstructive pulmonary disease) ([facility] [place], [facility] V28) 04/23/2017 Nocturnal hypoxemia 04/23/2017 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) 04/23/2017 Smoking 04/23/2017 Obstructive sleep apnea 02/09/2017 Multinodular goiter 12/13/2016 Multiple sclerosis 12/02/2016 Glaucoma 07/08/2016 Ankle fracture 05/11/2016 CTS (carpal tunnel syndrome) 05/11/2016 Fibromyalgia 05/11/2016 Diverticulosis 08/30/2015 HTN (hypertension) 08/30/2015 Known medical problems 08/30/2015 Anxiety 08/07/2015 Depression 07/20/2015 GERD (gastroesophageal reflux disease) 07/20/2015 Hyperlipidemia 07/20/2015 IBS (irritable bowel syndrome) 07/20/2015 Kidney stones 07/20/2015 Migraine 07/20/2015 Neuropathy 07/20/2015 Osteoarthritis 07/20/2015 PTSD (post-traumatic stress disorder) 07/20/2015 Seizures ([facility] V[facility], [facility] V28) 07/20/2015 Urinary incontinence 07/20/2015 Surgical History[3] FAMILY HISTORY: Family History[4] OCCUPATION OR OCCUPATION EXPOSURE: SOCIAL HISTORY Social History Socioeconomic History Marital status: Single Spouse name: Not on file Number of children: Not on file Years of education: Not on file Highest education level: Not on file Occupational History Not on file Tobacco Use Smoking status: Heavy Smoker Current packs/day: 0.25 Average packs/day: 0.8 packs/day for 49.6 years (40.7 ttl pk-yrs) Types: Cigarettes Start date: 12/08/1975 Last attempt to quit: 09/08/2013 Passive exposure: Current Smokeless tobacco: Never Vaping Use Vaping status: Never Used Substance and Sexual Activity Alcohol use: No Drug use: No Sexual activity: Not on file Other Topics Concern Not on file Social History Narrative Single, several daughters. Feels safe at home. 07/23. IMMUNIZATION: Immunization History Administered Date(s) Administered Moderna SARS-CoV-2 COVID-19, mRNA, LNP-S, preservative free 11/15/2020, 12/13/2020, 12/03/2021 PHYSICAL EXAM: Visit Vitals BP 130/74 (BP Location: Left arm, Patient Position: Sitting, BP Cuff Size: Large adult) Pulse 78 Temp 36.1 ??C (97 ??F) (Temporal) Resp 20 SpO2 95% OB Status Postmenopausal Smoking Status Heavy Smoker APPEARANCE: Alert and in no acute distress. EYES: Conjunctiva and sclera normal. NOSE/SINUS: Nares normal. Septum midline. Mucosa No drainage or sinus tenderness. MOUTH/THROAT: no erythema or exudates. Mallampati class 2 NECK: Neck supple, thyroid symmetric and of normal size. HEART: RRR with normal S1 and S2, no murmurs, no gallops, no JVD appreciated. LUNG: CTA b/l, no wheezing or bronchial bs ABDOMEN: Bowel sounds normoactive, soft, non-tender EXTREMITIES: no clubbing, cyanosis, or edema. LYMPH NODES: No cervical and supra-clavicular lymphadenopathy. NEURO: Awake, alert and oriented x 3, no focalization Derm: no rash DIAGNOSTIC DATA: DIAGNOSTIC DATA: abg 05/09/24 [facility]= pco2 45% CARDIOPULMONARY TEST: Pulmonary function Test showed: Test: Complete PFT with pre/post bronchodilator plethysmography and DLCO diffusion Technique: Reproducible and Repeatable No obstruction. No restriction. Normal DLCO diffusion. Decreased DLCO diffusion, became normal after lung volume correction Clinical correlation is required. Last Resulted: 07/26/16 RADIOLOGIST IMAGIN07/05/25 Narrative & Impression INDICATION: eval infection, edema, other CT chest with contrast Comparison: CT - CT ANGIO CHEST WO AND OR W CONTRAST - 02/18/2025 10:30 PM EDT Findings: The heart size is normal. The visualized thyroid and mediastinum are unremarkable. The lungs are clear. The upper abdomen is unremarkable. No acute fractures. Patchy bibasilar infiltrates. IMPRESSION: Patchy bibasilar infiltrates. ASSESSMENT: ICD-10-CM ICD-9-CM 1. Multiple sclerosis G35.D 340 2. Moderate COPD (chronic obstructive pulmonary disease) (CMS/HCC V24, CMS/HCC V28) J44.9 496 Overnight Pulse Oximetry 3. Nocturnal hypoxemia G47.34 327.24 Overnight Pulse Oximetry PLAN: O2 sat 95% on room air. She has oxygen at home, large tanks and concentrator. Currently on oxygen qhs. She cannot walk today and request oxygen with activity, POC. She needs a walk test to demonstrate. Last PFT was in 2016. She has mostly restrictive lung disease, I will continue the Incruse, as needed albuterol and DuoNebs - Follow up with Tone Cool MD for the other co-morbilities. - I spend 31 Minutes on this visit. The patient was educated about his problems, where assessment and plan was reviewed and explained, All questions were answered. This includes: Preparing to see the patient, obtaining and/or reviewing separately obtained history, performing a medically appropriate exam, ordering medications, tests, or procedures, documenting clinical information in the electronic health record, and independently interpreting results. RETURN TO THE NEXT VISIT: Based on physical exam, symptomatology, tests requested and baseline pulmonary evaluation/disease, I instructed the patient to come back to see me in 4 mths for reevaluation after the test has been done or earlier if the patient needed. Thanks Tone Cool MD for allowing me to have the opportunity to assist in the care of this patient. [1] Allergies Allergen Reactions Ciprofloxacin Hives Cephalexin Hives Tolerated cefepime in patient 07/06/25 Other reaction(s): hives Ibuprofen Stomach Pain Latex Itching Other Reaction(s): Hives/Urticaria, Rash/Dermatitis Penicillins Itching Other Reaction(s): Hives/Urticaria, Rash/Dermatitis [2] Outpatient Medications Marked as Taking for the 08/15/25 encounter (Office Visit) with Sean Heart MD Medication Sig Dispense Refill aspirin 81 mg EC tablet Take 1 tablet (81 mg total) by mouth 1 (one) time each day in the morning. budesonide-formoteroL (Symbicort) 160-4.5 mcg/actuation inhaler INHALE 2 PUFFS BY MOUTH TWICE DAILY. RINSE MOUTH AFTER USING. clonazePAM (KlonoPIN) 1 mg tablet Take 1 Tablet by mouth 2 times daily as needed. cyclobenzaprine (FLEXERIL) 10 mg tablet Take 1 Tablet by mouth 3 times daily. cycloSPORINE 0.05 % drops 1 Drop 2 times daily. fluticasone propionate (FLONASE) 50 mcg/actuation nasal spray 1 [place] by Nasal route 2 times daily. hydrocortisone (CORTEF) 10 mg tablet Take 1 tablet (10 mg total) by mouth 2 (two) times a day. ipratropium-albuteroL (DUONEB) 0.5-2.5 mg/3 mL nebulizer solution Take 3 mL by nebulization every 6(six) hours if needed for wheezing or shortness of breath. 360 mL 0 isosorbide mononitrate (IMDUR) 30 mg 24 hr tablet Take 1 tablet (30 mg total) by mouth 1 (one) timeeach day. Do not crush or chew. lactulose (CHRONULAC) solution TAKE 30 ML (20 G) BY MOUTH TWICE A DAY 5400 mL 0 levothyroxine (SYNTHROID, LEVOTHROID) 150 mcg tablet TAKE 1 TAB EVERY DAY SCHEDULE LAB WORK 1 MONTHAFTER SURGERY TO ASSESS THYROID LEVELS loperamide (IMODIUM) 2 mg capsule Take 1 capsule (2 mg total) by mouth 4 (four) times a day if needed for diarrhea for up to 3 days. 12 capsule [address] [facility] CPAP Historical (HISTORICAL CPAP) : Inhale into the lungs. BHIR-pressure 8-16. miscellaneous medical supply [facility]. Devices (BATHTUB SAFETY RAIL) [facility]: 1 Bar by Does not applyroute daily. To use in shower for safety montelukast (SINGULAIR) 10 mg tablet Take 1 tablet (10 mg total) by mouth at bedtime. naloxone (NARCAN) 4 mg/0.1 mL nasal spray FOR SUSPECTED OPIOID OVERDOSE. SPRAY 0.1mL IN ONE NOSTRIL. REPEAT IN ALTERNATE NOSTRIL 2-3 MINUTES IF NEEDED. SEEK MEDICAL ATTENTION IMMEDIATELY EVEN IF PATIENT RESPONDS. nicotine (NICODERM CQ) 14 mg/[address] 1 patch on the skin 1 (one) time each day at the same time. 30 each 0 nitroglycerin (NITROSTAT) 0.[address] 1 tablet (0.4 mg total) under the tongue as needed. ondansetron ODT (ZOFRAN-ODT) 4 mg disintegrating tablet Let 1 tablet dissolve under the tongue three times daily as needed for nausea or vomiting. 10 tablet 0 oxyCODONE (ROXICODONE) 15 mg immediate release tablet Take 15 mg by mouth 4 times daily. Oxygen Therapy (O2) gas Inhale into the lungs. 2 liters nasal cannula for nocturnal use pantoprazole (PROTONIX) 40 mg EC tablet Take 1 tablet (40 mg total) by mouth 2 (two) times a day before meals. Do not crush, chew, or split. 180 each 3 phenytoin (DILANTIN) 100 mg ER capsule Take 2 capsules (200 mg total) by mouth 2 (two) times a day. polyethylene glycol (MIRALAX) 17 gram packet Take 17 g by mouth 1 (one) time each day. 510 g 11 pregabalin (LYRICA) 300 mg capsule Take 300 mg by mouth 2 times daily. senna 8.6 mg tablet TAKE 1 TABLET BY MOUTH EVERY DAY 90 tablet 3 sertraline (ZOLOFT) 25 mg tablet Take 1 tablet (25 mg total) by mouth 1 (one) time each day. topiramate (TOPAMAX) 25 mg tablet Take 1 tablet (25 mg total) by mouth 2 (two) times a day. umeclidinium (Incruse Ellipta) 62.5 mcg/actuation inhalation Inhale 1 puff by mouth 1 (one) time each day. Ventolin HFA 90 mcg/actuation inhaler INHALE 2 PUFFS INTO THE LUNGS EVERY 4 HOURS NEEDED FOR WHEEZING OR SHORTNESS OF BREATH 18 each 2 [3] Past Surgical History: Procedure Laterality Date BLADDER SUSPENSION 02/23/2015 PROCEDURE: HISTORICAL BLADDER SUSPENSION CARPAL TUNNEL RELEASE Right 08/2010 PROCEDURE: HISTORICAL CARPAL TUNNEL REL SECTION PROCEDURE: UT DELIVERY ONLY COLONOSCOPY 07/30/2016 PROCEDURE: HISTORICAL COLONOSCOPY; COMMENT: Hyperplastic Polyp, Repeat 10 yrs HAND SURGERY Left PROCEDURE: UT UNLISTED PROCEDURE HANDS/FINGERS; COMMENT: finger repair HYSTERECTOMY 02/23/2015 PROCEDURE: HISTORICAL HYSTERECTOMY; COMMENT: Remaining R ovary also removed OTHER SURGICAL HISTORY Bilateral PROCEDURE: UT IN-SITU FEM-ANT TIBL PST TIBL/PRONEAL ART; COMMENT: x3 OTHER SURGICAL HISTORY Right 05/2010 PROCEDURE: UT UNLISTED PROCEDURE LEG/ANKLE; COMMENT: frx repair with metal hardware OTHER SURGICAL HISTORY 02/28/2017 PROCEDURE: THYROID,NEEDLE ASPIRATION CYTOLOGY EXAM; COMMENT: Benign SALPINGOOPHORECTOMY Left PROCEDURE: UT LAPAROSCOPY W/RMVL ADNEXAL STRUCTURES; COMMENT: tubal TUBAL LIGATION PROCEDURE: HISTORICAL TUBAL LIGATION UPPER GASTROINTESTINAL ENDOSCOPY 03/03/2019 PROCEDURE: UPPER GI ENDOSCOPY/EXAM; COMMENT: chronic gastritis, H pylori stain pending UPPER GASTROINTESTINAL ENDOSCOPY 07/30/2016 PROCEDURE: UT UPPER GI ENDOSCOPY PERFORMED; COMMENT: H.Pylori, Chronic Gastritis [4] Family History Problem Relation Name Age of Onset Breast cancer Aunt Ovarian cancer Daughter Heart attack Father age 44 Diabetes Mother HTN Heart attack Brother Breast cancer Maternal Grandmother Breast cancer Daughter Diabetes Brother Throat cancer Sister 50 Mental Illness Diabetes Brother Blindness Neg Hx Cataracts Neg Hx Glaucoma Neg Hx Macular degeneration Neg Hx Strabismus Neg Hx documented in this encounter Plan of Treatment Upcoming Encounters Date Type Department Care Team (Late st Contact Info) Description 11/29/2025 2:00 PM EDT Consult [facility] for [facility] - [address] [place] [phone] Guerita Marrero MD [address] [place] [address] 12/26/2025 2:45 PM EDT Office Visit Pulmonology - [address] [place] [phone] Sean Heart MD [address] [place] [phone] Scheduled Orders Name Type Priority Associated Diagnoses Orde r Schedule Overnight Pulse Oximetry Respiratory Care Routine Moderate COPD (chronic obstructive pulmonary disease) ([facility] V24, [facility] V28) Nocturnal hypoxemia 1 Occurrences starting 08/15/2025 until 08/15/2026 documented as of this encounter Visit Diagnoses Diagnosis Multiple sclerosis- Primary Moderate COPD (chronic obstructive pulmonary disease) ([facility] V24, [facility] V28) Nocturnal hypoxemia Tobacco abuse Tobacco use disorder documented in this encounter Care Teams Local Sales Associate Relationship Specialty Start Date End Date Name, MD Tone [address] [place] [phone] PCP - General Internal Medicine 06/19/25 documented as of this encounter
--- NOTE | ~2025-08-17 | MM_ITS ---
EXAMINATION: DXA BONE DENSITY AXIAL HISTORY: Chronic prednisone use and thoracic compression fractures on chest X-ray TECHNIQUE: [employer] Dual energy absorptiometry (DEXA) of the lumbar spine, total left hip, and femoral neck was performed. COMPARISON: There are no prior studies for comparison. FINDINGS: The bone mineral density of the lumbar spine is 0.836 g/cm2, corresponding to a T-score of -2.8, and a Z-score of -2.3. This is indicative of osteoporosis. The bone mineral density of the left total hip is 0.873 g/cm2, corresponding to a T-score of -1.1, and a Z-score of -0.6. This is indicative of osteopenia. The bone mineral density of the left femoral neck is 0.843 g/cm2, corresponding to a T-score of -1.4, and a Z-score of -0.6. This is indicative of osteopenia. FRACTURE RISK: The FRAX index suggests a risk of major osteoporotic fracture of 7.4%, and of hip fracture 1.2%. MM/XR DEXA axial skeleton IMPRESSION: Based on bone mineral density, and according to World Health Organization (WHO) criteria, the diagnosis is consistent with osteoporosis. Statistically, 68% of repeat scans fall within 1 SD (+/- 0.010 g/cm2 for AP spine L1-L4) and 1 SD (+/- 0.012 g/cm2 for femur total) FRAX is a trademark of the [employer]'s [employer] for Metabolic Bone Disease, a World Health Organization (WHO) Collaborating Center. Electronically signed by: Duane Lopez MD 08/17/2025 03:05 PM [facility]
--- OUTSIDE RECORDS SUMMARY | 2025-08-17 21:43 | XMS_ITS | Encounter Summary ---
Author Organization [employer] Address [address] [facility] 7t [place] [address] Care Team Providers Care Food Service Technician Name Role Phone Name, Tone SEPULVEDA Primary Care Provider [phone] Reason for Visit * Reason Onset Date Comments Lab Orders 03/19/2024 Encounter Details Date Type Department Care Team ([facility] st Contact Info) Description 03/19/2024 Telephone [facility] MED[facility]INE [address] [place] [address] Name, MD Tone [address] [place] [address] Lab Orders Social History Tobacco Use Types [...] Care Team (Late st Contact Info) Description 08/19/2025 11:00 AM EST Office Visit [address] [address] Name, MD Tone [address] [place] [address] 10/03/2025 3:15 PM EST Office Visit [address] [address] Name, MD Tone [address] [place] [address] 11/04/2025 2:00 PM EST Telemedicine [address] [address] Tanya Ellison, RN documented as of this encounter Visit Diagnoses Not on filedocumented in this encounter Additional Health Concerns Assessment Noted Time PHQ-9 Depression Total Score: 11 024 2:10 PM EDT documented as of this encounter Care Teams Food Service Technician Relationship Specialty Start Date End Date Name, MD Tone [address] [place] [address] PCP - General Family Medicine 08/17/19 Annie SETHIA 02/16/25 04/18/25 documented as of this encounter
--- OUTSIDE RECORDS SUMMARY | 2025-08-17 21:43 | XMS_ITS | Encounter Summary ---
Author Organization [employer] Address [address] [facility] [address] [place] [address] Care Team Providers Care Nurse Clinician Name Role Phone Name, Tone SEPULVEDA Primary Care Provider [phone] Reason for Visit * Reason Onset Date Comments Status Request 02/26/2024 Encounter Details Date Type Department Care Team ([facility] st Contact Info) Description 02/26/2024 Telephone [facility] MEDICINE [address] [place] [address] Name, MD Tone [address] [place] [address] Status Request Social History Tobacco Use Types [...] during last OV. Please contact pt at [phone]. documented in this encounter Plan of Treatment Upcoming Encounters Date Type Department Care Team (Late st Contact Info) Description 08/19/2025 11:00 AM EST Office Visit [address] [address] Name, MD Tone [address] [place] [address] 10/03/2025 3:15 PM EST Office Visit [address] [address] Name, MD Tone [address] [place] [address] 11/04/2025 2:00 PM EST Telemedicine [address] [address] Tanya Ellison, RN documented as of this encounter Visit Diagnoses Not on filedocumented in this encounter Additional Health Concerns Assessment Noted Time PHQ-9 Depression Total Score: 11 024 2:10 PM EDT documented as of this encounter Care Teams Nurse Clinician Relationship Specialty Start Date End Date Name, MD Tone [address] [place] [phone] PCP - General Family Medicine 08/17/19 Annie SETHIA 02/16/25 04/18/25 documented as of this encounter
--- OUTSIDE RECORDS SUMMARY | 2025-08-17 21:43 | XMS_ITS | Encounter Summary ---
Author Organization [employer] Address [address] [facility] 7t [place] [address] Care Team Providers Care English As A Second Language Instructor Name Role Phone Name, Tone SEPULVEDA Primary Care Provider [phone] Reason for Visit * Reason Onset Date Comments Med Refill 10/22/2022 new script 10/22/2022 Encounter Details Date Type Department Care Team ([facility] st Contact Info) Description 10/22/2022 Telephone [facility] MED[facility]INE 230 [place], [place] [phone] Name, MD Tone [address] [place] [address] Med Refill; new script Social History Tobacco [...] Description 08/19/2025 11:00 AM EST Office Visit [address] [address] Name, MD Tone [address] [place] [address] 10/03/2025 3:15 PM EST Office Visit [address] [address] Name, MD Tone [address] [place] [address] 11/04/2025 2:00 PM EST Telemedicine [address] [phone] Tanya Ellison RN documented as of this encounter Visit Diagnoses Not on filedocumented in this encounter Care Teams English As A Second Language Instructor Relationship Specialty Start Date End Date Name, MD Tone [address] [place] [address] [phone] PCP - General Family Medicine 08/17/19 Annie SETHIA 02/16/25 04/18/25 documented as of this encounter
--- OUTSIDE RECORDS SUMMARY | 2025-08-17 21:43 | XMS_ITS | Encounter Summary ---
Author Organization [employer] Address [address] [facility] 7t [place] [address] Care Team Providers Care Gambling Box Person Name Role Phone Name, Tone SEPULVEDA Primary Care Provider [phone] Reason for Visit * Reason Comments Med Refill Encounter Details Date Type Department Care Team ([facility] Contact Info) Description 11/15/2022 Refill [facility] [address] [place], [place] [phone] [facility] [address] [place], [place] [phone] Social History Tobacco Use Types Packs/Day Years [...] Upcoming Encounters Date Type Department Care Team ([facility] Contact Info) Description 08/19/2025 11:00 AM EST Office Visit [facility] MED[facility] [address] [place] [address] [phone] Name, MD Tone [address] [place] [address] [phone] 10/03/2025 3:15 PM EST Office Visit [facility] [address] [place] [address] Name, MD Tone [facility] [place] [address] 11/04/2025 2:00 PM EST Telemedicine [address] [address] Tanya Ellison RN documented as of this encounter Visit Diagnoses Not on filedocumented in this encounter Care Teams Gambling Box Person Relationship Specialty Start Date End Date Name, MD Tone [facility] [place] [address] PCP - General Family Medicine 08/17/19 Annie SETHIA 02/16/25 04/18/25 documented as of this encounter
--- OUTSIDE RECORDS SUMMARY | 2025-08-17 21:43 | XMS_ITS | Encounter Summary ---
Author Organization [employer] [facility] Address [address] [facility] 7 [place] [address] Care Team Providers Care Institutional Asset Manager Name Role Phone Name, Tone SEPULVEDA Primary Care Provider [phone] Reason for Visit * Reason Comments Med Refill Encounter Details Date Type Department Care Team (Late Contact Info) Description 11/04/2022 Refill [facility] MED[facility]INE [address] [place] [address] [phone] NameTone MD [address] [place] [address] [phone] Anxiety disorder, unspecified Social History Tobacco Use [...] Department Care Team (Late Contact Info) Description 08/19/2025 11:00 AM EST Office Visit [facility] MED[facility] [address] [place] [address] [phone] NameTone MD [address] [place] [address] [phone] 10/03/2025 3:15 PM EST Office Visit [address] [address] Name, [place] [address] 11/04/2025 2:00 PM EST Telemedicine [address] [address] Tanya Ellison RN documented as of this encounter Visit Diagnoses Diagnosis Anxiety disorder, unspecified documented in this encounter Care Teams Institutional Asset Manager Relationship Specialty Start Date End Date Name, [place] [address] PCP - General Family Medicine 08/17/19 Annie SETHIA 02/16/25 04/18/25 documented as of this encounter
--- OUTSIDE RECORDS SUMMARY | 2025-08-17 21:43 | XMS_ITS | Encounter Summary ---
Author Organization [employer] Address [address] [facility] 7t [place] [address] Care Team Providers Care Enamel Shader Name Role Phone Name, Tone SEPULVEDA Primary Care Provider [phone] Reason for Visit * Reason Onset Date Comments Referral 03/17/2024 Encounter Details Date Type Department Care Team ([facility] st Contact Info) Description 03/17/2024 Telephone [facility] MED[facility]INE [address] [place] [address] Name, MD Tone [address] [place] [address] Referral Social History Tobacco Use Types Packs/Day [...] no answer. LVM to call back on [phone]. * Telephone Encounter - Toni Galdamez - [...] Description 08/19/2025 11:00 AM EST Office Visit [address] [address] Name, MD Tone [address] [place] [address] 10/03/2025 3:15 PM EST Office Visit [address] [address] Name, MD Tone [address] [place] [address] 11/04/2025 2:00 PM EST Telemedicine [address] [address] Tanya Ellison, RN documented as of this encounter Visit Diagnoses Not on filedocumented in this encounter Additional Health Concerns Assessment Noted Time PHQ-9 Depression Total Score: 11 024 2:10 PM EDT documented as of this encounter Care Teams Enamel Shader Relationship Specialty Start Date End Date NameTone MD [address] [place] [address] PCP - General Family Medicine 08/17/19 Annie VNA 02/16/25 04/18/25 documented as of this encounter
--- OUTSIDE RECORDS SUMMARY | 2025-08-17 21:44 | XMS_ITS | Encounter Summary ---
Author Organization [employer] Address 75 [facility] 7t [place] [address] Care Team Providers Care Air Director Name Role Phone Name, Tone SEPULVEDA Primary Care Provider [phone] Encounter Details Date Type Department Care Team (Late Contact Info) Description 01/03/2023 Telephone [facility] MEDICINE [address] [place] [address] [phone] NameTone MD [address] [place] [address] [phone] Social History Tobacco Use Types Packs/Day Years [...] Description 08/19/2025 11:00 AM EST Office Visit [facility] [address] [place] [address] [phone] Name, MD Tone [address] [place] [address] 10/03/2025 3:15 PM EST Office Visit [facility] [place] [address] Name, MD Tone [facility] [place] [address] 11/04/2025 2:00 PM EST Telemedicine [facility] [place] [address] Tanya Ellison, SHUBHAM documented as of this encounter Visit Diagnoses Not on filedocumented in this encounter Additional Health Concerns Assessment Noted Time PHQ-9 Depression Total Score: 0 12/26/19 23 1:52 PM EDT documented as of this encounter Care Teams Air Director Relationship Specialty Start Date End Date Name, MD Tone [facility] [place] [address] PCP - General Family Medicine 08/17/19 [place] [facility] 02/16/25 04/18/25 documented as of this encounter
--- OUTSIDE RECORDS SUMMARY | 2025-08-17 21:44 | XMS_ITS | Encounter Summary ---
Author Organization [employer] Address 75 [facility] 7t [place] [address] Care Team Providers Care Neck Pinner Name Role Phone Name, Tone SEPULVEDA Primary Care Provider [phone] Reason for Visit * Reason Onset Date Comments status request 04/07/2024 Encounter Details Date Type Department Care Team ([facility] st Contact Info) Description 04/07/2024 Telephone [facility] MEDICINE 230 [place] [address] Name, MD Tone [address] [place] [address] status request Social History Tobacco Use Types [...] Miscellaneous Notes * Telephone Encounter - Fernando Kelelr RN - 04/07/2024 4:05 PM EDT Please [...] received any update. Please contact pt at [phone]. * Telephone Encounter - Pio Carolina - 04/07/2024 3:25 PM EDT Tc from pt calling stating she has no showed over [address] Portillo and they will not be ableto see pt, she is now requesting new referral for neurology. If any questions you can contact [t at [phone]. * Telephone Encounter - Pio [place] - 04/07/2024 2:45 PM EDT Tc from pt requesting status on form for adult foster care stating it has been signed a week ago but has not received any update. Please contact pt at [phone]. documented in this encounter Plan of Treatment Upcoming Encounters Date Type Department Care Team (Late st Contact Info) Description 08/19/2025 11:00 AM EST Office Visit [address] [address] Name, [place] [address] 10/03/2025 3:15 PM EST Office Visit [address] [place] [address] Name, [place] [address] 11/04/2025 2:00 PM EST Telemedicine [address] [place] [address] Tanya Ellison, SHUBHAM documented as of this encounter Visit Diagnoses Not on filedocumented in this encounter Additional Health Concerns Assessment Noted Time PHQ-9 Depression Total Score: 11 024 2:10 PM EDT documented as of this encounter Care Teams Neck Pinner Relationship Specialty Start Date End Date Name, MD Tone [address] [place], [place] [address] [place] [address] PCP - General Family Medicine 08/17/19 Annie [facility] 02/16/25 04/18/25 documented as of this encounter
--- OUTSIDE RECORDS SUMMARY | 2025-08-17 21:44 | XMS_ITS | Encounter Summary ---
Author Organization [employer] Address 75 [facility] 7t [place] [address] Care Team Providers Care Diesel Mechanic Construction Name Role Phone Name, Tone SEPULVEDA Primary Care Provider [phone] Reason for Visit * Reason Onset Date Comments Med Refill 12/03/2022 Encounter Details Date Type Department Care Team ([facility] st Contact Info) Description 12/03/2022 Telephone [facility] MEDICINE 230 [place], [place] [phone] Name, MD Tone 230 [place] [address] Med Refill Social History Tobacco Use Types [...] 3:35 PM EDT Medication was sent to [facility] on 11/28/22. * Telephone Encounter - Sherri Cummings - 12/03/2022 3:26 PM EDT Tc from pt requesting med refill on pregabalin (Lyrica) 300 MG capsule Please sent to [facility] - [place], [place] - [address] [place] [address] documented in this encounter Plan of Treatment Upcoming Encounters Date Type Department Care Team (Late st Contact Info) Description 08/19/2025 11:00 AM EST Office Visit [address] [address] Name, MD Tone [address] [place] [address] 10/03/2025 3:15 PM EST Office Visit [address] [address] Name, MD Tone [address] [place] [address] 11/04/2025 2:00 PM EST Telemedicine [address] [address] Tanya Ellison, RN documented as of this encounter Visit Diagnoses Not on filedocumented in this encounter Care Teams Diesel Mechanic Construction Relationship Specialty Start Date End Date Name, MD Tone [address] [place] [address] PCP - General Family Medicine 08/17[facility]19 [facility] 04/18/25 documented as of this encounter
--- OUTSIDE RECORDS SUMMARY | 2025-08-17 21:44 | XMS_ITS | Encounter Summary ---
Author Organization [facility] Address [address] [facility] 7 [place] [address] Care Team Providers Care Warehouse Worker Name Role Phone Name, Tone SEPULVEDA Primary Care Provider [phone] Reason for Visit * Reason Comments Med Refill Encounter Details Date Type Department Care Team (Late Contact Info) Description 10/03/2022 Refill [facility] MEDICINE [address] [place] [address] [phone] NameTone MD [address] [place] [address] [phone] Anxiety disorder, unspecified Social History Tobacco Use [...] Description 08/19/2025 11:00 AM EST Office Visit [facility] [address] [place] [address] [phone] NameTone MD [address] [place] [address] [phone] 10/03/2025 3:15 PM EST Office Visit [address] [address] Name, [place] [address] 11/04/2025 2:00 PM EST Telemedicine [address] [address] Tanya Ellison RN documented as of this encounter Visit Diagnoses Diagnosis Anxiety disorder, unspecified documented in this encounter Care Teams Warehouse Worker Relationship Specialty Start Date End Date Name, [place] [address] PCP - General Family Medicine 08/17/19 Annie SETHIA 02/16/25 04/18/25 documented as of this encounter
--- OUTSIDE RECORDS SUMMARY | 2025-08-17 21:44 | XMS_ITS | Encounter Summary ---
Author Organization [employer] Address 75 [facility] 7t [place] [address] Care Team Providers Care Interactive Web Developer Name Role Phone Name, Tone SEPULVEDA Primary Care Provider [phone] Reason for Visit * Reason Comments Med Refill Encounter Details Date Type Department Care Team ([facility] st Contact Info) Description 02/02/2024 Refill [facility] MED[facility]INE 230 [place] [address] Name, MD Tone 230 [place], [place] [phone] Wheezing Social History Tobacco Use Types Packs/Day [...] Description 08/19/2025 11:00 AM EST Office Visit [address] [address] NameTone MD [address] [place] [address] 10/03/2025 3:15 PM EST Office Visit [address] [address] NameTone MD [address] [place] [address] 11/04/2025 2:00 PM EST Telemedicine [address] [address] Tanya Ellison, SHUBHAM documented as of this encounter Visit Diagnoses Diagnosis Wheezing documented in this encounter Additional Health Concerns Assessment Noted Time PHQ-9 Depression Total Score: 11 024 2:10 PM EDT documented as of this encounter Care Teams Interactive Web Developer Relationship Specialty Start Date End Date NameTone MD [address] [place] [address] PCP - General Family Medicine 08/17/19 Annie SETHIA 02/16/25 04/18/25 documented as of this encounter
--- OUTSIDE RECORDS SUMMARY | 2025-08-17 21:44 | XMS_ITS | Encounter Summary ---
Author Organization [employer] Address 75 [facility] 7t [place] [address] Care Team Providers Care Sink Cutter Name Role Phone Name, Tone SEPULVEDA Primary Care Provider [phone] Reason for Visit * Reason Onset Date Comments Med Refill 02/26/2024 Encounter Details Date Type Department Care Team ([facility] st Contact Info) Description 02/26/2024 Refill [facility] 230 [place] [address] Name, MD Tone 230 [place] [address] Chronic back pain, unspecified back location, unspecified [...] Gamino LPN - 02/26/2024 1:32 PM EDT ELEVATOR CONSTRUCTOR ELECTRIC checked 02/26/24. Next appointment 03/23/24. * Telephone Encounter - Pio Carolina - 02/26/2024 1:08 PM EDT TC from pt requesting medication refill. Medications needing refill: pregabalin (Lyrica) 300 MG capsule To be sent to: [facility] documented in this encounter Plan of Treatment Upcoming Encounters Date Type Department Care Team (Late st Contact Info) Description 08/19/2025 11:00 AM EST Office Visit [address] [address] Name, MD Tone [address] [place] [address] 10/03/2025 3:15 PM EST Office Visit [address] [address] Name, MD Tone [address] [place] [address] 11/04/2025 2:00 PM EST Telemedicine [address] [address] Tanya Ellison, SHUBHAM documented as of this encounter Visit Diagnoses Diagnosis Chronic back pain, unspecified back location, unspecified back pain laterality documented in this encounter Additional Health Concerns Assessment Noted Time PHQ-9 Depression Total Score: 11 024 2:10 PM EDT documented as of this encounter Care Teams Sink Cutter Relationship Specialty Start Date End Date NameTone MD [address] [place] [address] PCP - General Family Medicine 08/17/19 Annie HERNANDEZ 02/16/25 04/18/25 documented as of this encounter
--- OUTSIDE RECORDS SUMMARY | 2025-08-17 21:44 | XMS_ITS | Encounter Summary ---
Author Organization [facility] Address [address] [address] Phone Care Team Providers Care Joinery Patternmaker Name Role Phone Name, Tone SEPULVEDA Primary Care Provider [phone] Encounter Details Date Type Department Care Team (Late st Contact Info) Description 05/20/2024 Procedure Pass [facility] Cardiac Irrigation Teacher [address] [place] [phone] Social History Tobacco Use Types Packs/Day Years [...] documented as of this encounter Care Teams Joinery Patternmaker Relationship Specialty Start Date End Date Name, MD Tone 230 [place] [address] PCP - General Internal Medicine 05/18/24 documented as of this encounter Additional Source Comments The information contained in this document represents components of the legal health record. It is not the complete legal health record.[facility]
--- OUTSIDE RECORDS SUMMARY | 2025-08-17 21:44 | XMS_ITS | Encounter Summary ---
Author Organization [employer] Address 75 [facility] 7t [place] [address] Care Team Providers Care Rolled Materials Worker Name Role Phone Name, Tone SEPULVEDA Primary Care Provider [phone] Reason for Visit * Reason Onset Date Comments requesting call back 11/22/2022 Encounter Details Date Type Department Care Team ([facility] st Contact Info) Description 11/22/2022 Telephone [facility] MEDICINE 230 [place] [address] Name, MD Tone 230 [place] [address] requesting call back Social History Tobacco Use [...] 11/22/2022 12:33 PM EDT FYI: Pt had [employer]. UTOX pos BAR, sending out for confirmation. * Telephone Encounter - Sherri Cummings - 11/22/2022 12:16 PM EDT Tc from pt requesting call from you to inform you something important that ask over pt appt. Please contact pt at [phone] documented in this encounter Plan of Treatment Upcoming Encounters Date Type Department Care Team (Late st Contact Info) Description 08/19/2025 11:00 AM EST Office Visit [address] [address] Name, MD Tone [address] [place] [address] 10/03/2025 3:15 PM EST Office Visit [address] [address] Name, MD Tone [address] [place] [address] 11/04/2025 2:00 PM EST Telemedicine [address] [address] Tanya Ellison, RN documented as of this encounter Visit Diagnoses Not on filedocumented in this encounter Care Teams Rolled Materials Worker Relationship Specialty Start Date End Date Name, MD Tone [address] [place] [address] PCP - General Family Medicine 08/17/19 Annie VNA 02/16/25 04/18/25 documented as of this encounter
--- OUTSIDE RECORDS SUMMARY | 2025-08-17 21:44 | XMS_ITS | Encounter Summary ---
Author Organization [email or web address] Address [address] [facility] [address] 7t [place] [address] Care Team Providers Care Sustainable Communities Designer Name Role Phone Name, Tone SEPULVEDA Primary Care Provider [phone] Encounter Details Date Type Department Care Team ([facility] st Contact Info) Description 11/25/[address] [facility] MEDICINE 230 [place] [address] Name, MD Tone 230 [place] [address] Social History Tobacco Use Types Packs/Day Years [...] Description 08/19/2025 11:00 AM EST Office Visit [address] [address] Name, MD Tone [address] [place] [address] 10/03/2025 3:15 PM EST Office Visit [address] [address] Name, MD Tone [address] [place] [address] 11/04/2025 2:00 PM EST Telemedicine [address] [address] Tanya Ellison, SHUBHAM documented as of this encounter Visit Diagnoses Not on filedocumented in this encounter Additional Health Concerns Assessment Noted Time PHQ-9 Depression Total Score: 0 12/26/19 23 1:52 PM EDT documented as of this encounter Care Teams Sustainable Communities Designer Relationship Specialty Start Date End Date Name, MD Tone [address] [place] [address] PCP - General Family Medicine 08/17/19 Annie SETHIA 02/16/25 04/18/25 documented as of this encounter
--- OUTSIDE RECORDS SUMMARY | 2025-08-17 21:44 | XMS_ITS | Encounter Summary ---
Author Organization [email or web address] Address [address] [facility] [address] 7t [place] [address] Care Team Providers Care Assessor Name Role Phone Name, Tone SEPULVEDA Primary Care Provider [phone] Reason for Visit * Reason Comments Med Refill Encounter Details Date Type Department Care Team ([facility] st Contact Info) Description 12/23/2023 Refill [facility] [address] [place], [place] [phone] Name, MD Tone 230 [place] [address] Chronic back pain, unspecified back location, unspecified [...] Description 08/19/2025 11:00 AM EST Office Visit [address] [address] NameTone MD [address] [place] [address] 10/03/2025 3:15 PM EST Office Visit [address] [address] Name, MD Tone [address] [place] [address] 11/04/2025 2:00 PM EST Telemedicine [address] [address] Tanya Ellison RN documented as of this encounter Visit Diagnoses Diagnosis Chronic back pain, unspecified back location, unspecified back pain laterality Anxiety disorder, unspecified Chronic low back pain, unspecified back pain laterality, unspecified whether sciatica present documented in this encounter Additional Health Concerns Assessment Noted Time PHQ-9 Depression Total Score: 0 12/26/19 23 1:52 PM EDT documented as of this encounter Care Teams Assessor Relationship Specialty Start Date End Date NameTone MD [address] [place] [address] PCP - General Family Medicine 08/17/19 [place] NAVDEEPA 02/16/25 04/18/25 documented as of this encounter
--- OUTSIDE RECORDS SUMMARY | 2025-08-17 21:44 | XMS_ITS | Encounter Summary ---
Author Organization [facility] Address [address] [address] Phone Care Team Providers Care Maple Products Supervisor Name Role Phone Name, Tone SEPULVEDA Primary Care Provider [phone] Encounter Details Date Type Department Care Team (Late st Contact Info) Description 05/19/2024 Procedure Pass [facility] Echocardiography [address] [place] [address] Social History Tobacco Use Types Packs/Day Years [...] documented as of this encounter Care Teams Maple Products Supervisor Relationship Specialty Start Date End Date Name, MD Tone 230 [place] [address] PCP - General Internal Medicine 05/18/24 documented as of this encounter Additional Source Comments The information contained in this document represents components of the legal health record. It is not the complete legal health record.[facility]
--- OUTSIDE RECORDS SUMMARY | 2025-08-17 21:44 | XMS_ITS | Encounter Summary ---
Author Organization [employer] Address 75 [facility] 7t [place] [address] Care Team Providers Care Dandy Operator Name Role Phone Name, Tone SEPULVEDA Primary Care Provider [phone] Reason for Visit * Reason Comments Med Refill Encounter Details Date Type Department Care Team ([facility] st Contact Info) Description 11/25/2023 Refill [facility] MEDICINE 230 [place] [address] Name, MD Tone 230 [place], [place] [phone] Chronic low back pain, unspecified back pain [...] Description 08/19/2025 11:00 AM EST Office Visit [address] [address] NameTone MD [address] [place] [address] 10/03/2025 3:15 PM EST Office Visit [address] [address] NameTone MD [address] [place] [address] 11/04/2025 2:00 PM EST Telemedicine [address] [address] Tanya Ellison, SHUBHAM documented as of this encounter Visit Diagnoses Diagnosis Chronic low back pain, unspecified back pain laterality, unspecified whether sciatica present documented in this encounter Additional Health Concerns Assessment Noted Time PHQ-9 Depression Total Score: 0 12/26/19 23 1:52 PM EDT documented as of this encounter Care Teams Dandy Operator Relationship Specialty Start Date End Date NameTone MD [address] [place] [address] PCP - General Family Medicine 08/17/19 Annie VNA 02/16/25 04/18/25 documented as of this encounter
--- OUTSIDE RECORDS SUMMARY | 2025-08-17 21:44 | XMS_ITS | Encounter Summary ---
Author Organization [facility] Address [address] [employer] [address] [address] Phone Care Team Providers Care Clinical Manager Name Role Phone Name, Tone SEPULVEDA Primary Care Provider [phone] Encounter Details Date Type Department Care Team (Late st Contact Info) Description 05/26/2024 Procedure Pass [facility] Cardiac Spray Machine Operator [address] [place] [address] Social History Tobacco Use Types Packs/Day Years [...] on filedocumented in this encounter Care Teams Clinical Manager Relationship Specialty Start Date End Date Name, MD Tone [address] [place] [address] PCP - General Internal Medicine 05/18/24 documented as of this encounter Additional Source Comments The information contained in this document represents components of the legal health record. It is not the complete legal health record.[facility]
--- OUTSIDE RECORDS SUMMARY | 2025-08-17 21:44 | XMS_ITS | Encounter Summary ---
Author Organization [employer] Address 75 [facility] 7t [place] [address] Care Team Providers Care General Forecaster Name Role Phone Name, Tone SEPULVEDA Primary Care Provider [phone] Reason for Visit * Reason Onset Date Comments Nurse Triage 02/18/2024 Encounter Details Date Type Department Care Team ([facility] st Contact Info) Description 02/18/2024 Telephone [facility] MEDICINE 230 [place] [address] Name, MD Tone [address] [place] [address] Nurse Triage Social History Tobacco Use Types [...] Description 08/19/2025 11:00 AM EST Office Visit [facility] [place] [address] Name, MD Tone [facility] [place] [address] 10/03/2025 3:15 PM EST Office Visit [facility] [address] Name, MD Tone [facility] [place] [address] 11/04/2025 2:00 PM EST Telemedicine [facility] [place] [address] Tanya Ellison RN documented as of this encounter Visit Diagnoses Not on filedocumented in this encounter Additional Health Concerns Assessment Noted Time PHQ-9 Depression Total Score: 11 024 2:10 PM EDT documented as of this encounter Care Teams General Forecaster Relationship Specialty Start Date End Date NameTone MD [facility] [place] [address] PCP - General Family Medicine 08/17/19 Annie SETHIA 02/16/25 04/18/25 documented as of this encounter
--- OUTSIDE RECORDS SUMMARY | 2025-08-17 21:44 | XMS_ITS | Encounter Summary ---
Author Organization [employer] Address 75 [facility] 7t [place] [address] Care Team Providers Care Technology Education Instructor Name Role Phone NameTone MD Primary Care Provider [phone] Reason for Visit * Reason Onset Date Comments Medication Question 10/17/2022 Encounter Details Date Type Department Care Team ([facility] st Contact Info) Description 10/17/2022 Telephone [facility] MEDICINE 230 [place], [place] [phone] Name, MD Tone 230 [place] [address] Medication Question Social History Tobacco Use Types [...] for docusate sodium. Please contact pt at [phone] documented in this encounter Plan of Treatment Upcoming Encounters Date Type Department Care Team (Late st Contact Info) Description 08/19/2025 11:00 AM EST Office Visit [address] [address] Tone Cool MD [address] [place] [address] 10/03/2025 3:15 PM EST Office Visit [address] [address] Tone Cool MD [address] [place] [address] 11/04/2025 2:00 PM EST Telemedicine [address] [address] Tanya Ellison RN documented as of this encounter Visit Diagnoses Diagnosis Therapeutic opioid induced constipation- Primary Constipation, unspecified constipation type documented in this encounter Care Teams Technology Education Instructor Relationship Specialty Start Date End Date Tone Cool MD [address] [place] [address] PCP - General Family Medicine 08/17/19 Annie HERNANDEZ 02/16/25 04/18/25 documented as of this encounter
--- OUTSIDE RECORDS SUMMARY | 2025-08-17 21:45 | XMS_ITS | Encounter Summary ---
Author Organization [employer] Address 75 [facility] 7t [place] [address] Care Team Providers Care Moisture Machine Tender Name Role Phone Name, Tone SEPULVEDA Primary Care Provider [phone] Reason for Visit * Reason Onset Date Comments Nurse Triage 02/10/2025 Encounter Details Date Type Department Care Team ([facility] st Contact Info) Description 02/10/2025 Telephone [facility] MEDICINE 230 [place], [place] [phone] Name, MD Tone 230 [place] [address] Nurse Triage Social History Tobacco Use Types [...] to the bathroom. Did seek ER at [facility] via EMS but pt left without being seen. Per pt having to use O2 2.5L continuously. Back pain and chest pain with inspiration. Pt denies any ALIZE sx. Per pt is taking rx pain meds. Pt reports using albuterol TID. Pt advised of disposition, agrees too seek ER at [facility] for evaluation. Sent to team for [facility] ER status check PRN. Protocol Used: Back [...] Description 08/19/2025 11:00 AM EST Office Visit [address] [address] NameTone MD [address] [place] [address] 10/03/2025 3:15 PM EST Office Visit [address] [address] Tone Cool MD [address] [place] [address] 11/04/2025 2:00 PM EST Telemedicine [address] [address] Tanya Ellison, RN documented as of this encounter Visit Diagnoses Not on filedocumented in this encounter Additional Health Concerns Assessment Noted Time PHQ-9 Depression Total Score: 14 12/31/ 025 1:40 PM EDT documented as of this encounter Care Teams Moisture Machine Tender Relationship Specialty Start Date End Date Name, MD Tone 230 [place] [address] PCP - General Family Medicine 08/17/19 [facility] 02/16/25 04/18/25 documented as of this encounter
--- OUTSIDE RECORDS SUMMARY | 2025-08-17 21:45 | XMS_ITS | Encounter Summary ---
Author Organization [employer] Address [address] [facility] 7t [place] [address] Care Team Providers Care Erp Analyst Name Role Phone Name, Tone SEPULVEDA Primary Care Provider [phone] Reason for Visit * Reason Comments Med Refill Encounter Details Date Type Department Care Team ([facility] st Contact Info) Description 09/13/2024 Refill [facility] MEDICINE 230 [place] [address] Name, MD Tone 230 [place], [place] [phone] Nausea and vomiting in adult Social History [...] Description 08/19/2025 11:00 AM EST Office Visit [address] [address] Tone Cool MD [address] [place] [address] 10/03/2025 3:15 PM EST Office Visit [address] [address] NameTone MD [address] [place] [address] 11/04/2025 2:00 PM EST Telemedicine [address] [address] Tanya Ellison, RN documented as of this encounter Visit Diagnoses Diagnosis Nausea and vomiting in adult documented in this encounter Additional Health Concerns Assessment Noted Time PHQ-9 Depression Total Score: 11 024 2:10 PM EDT documented as of this encounter Care Teams Erp Analyst Relationship Specialty Start Date End Date NameTone MD [address] [place] [address] PCP - General Family Medicine 08/17/19 Annie SETHIA 02/16/25 04/18/25 documented as of this encounter
--- OUTSIDE RECORDS SUMMARY | 2025-08-17 21:45 | XMS_ITS | Encounter Summary ---
Author Organization [employer] Address 75 [facility] 7t [place] [address] Care Team Providers Care Sheet Metal Shop Supervisor Name Role Phone Name, Tone SEPULVEDA Primary Care Provider [phone] Reason for Visit * Reason Comments Med Refill Encounter Details Date Type Department Care Team ([facility] st Contact Info) Description 09/04/2024 Refill [facility] MEDICINE 230 [place] [address] Name, MD Tone 230 [place], [place] [phone] Nausea and vomiting in adult Social History [...] Description 08/19/2025 11:00 AM EST Office Visit [address] [address] Tone Cool MD [address] [place] [address] 10/03/2025 3:15 PM EST Office Visit [address] [address] NameTone MD [address] [place] [address] 11/04/2025 2:00 PM EST Telemedicine [address] [address] Tanya Ellison, RN documented as of this encounter Visit Diagnoses Diagnosis Nausea and vomiting in adult documented in this encounter Additional Health Concerns Assessment Noted Time PHQ-9 Depression Total Score: 11 024 2:10 PM EDT documented as of this encounter Care Teams Sheet Metal Shop Supervisor Relationship Specialty Start Date End Date NameTone MD [address] [place] [address] PCP - General Family Medicine 08/17/19 Annie SETHIA 02/16/25 04/18/25 documented as of this encounter
--- OUTSIDE RECORDS SUMMARY | 2025-08-17 21:45 | XMS_ITS | Encounter Summary ---
Author Organization [employer] Address 75 [facility] 7t [place] [address] Care Team Providers Care Tap And Die Maker Technician Name Role Phone Name, Tone SEPULVEDA Primary Care Provider [phone] Reason for Visit * Reason Onset Date Comments Prior Authorization 01/07/2023 Encounter Details Date Type Department Care Team ([facility] st Contact Info) Description 01/07/2023 Telephone [facility] MEDICINE 230 [place], [place] [phone] Name, MD Tone 230 [place] [address] Prior Authorization Social History Tobacco Use Types [...] Description 08/19/2025 11:00 AM EST Office Visit [address] [address] NameTone MD [address] [place] [address] 10/03/2025 3:15 PM EST Office Visit [address] [address] NameTone MD [address] [place] [address] 11/04/2025 2:00 PM EST Telemedicine [address] [address] Tanya Ellison, RN documented as of this encounter Visit Diagnoses Not on filedocumented in this encounter Additional Health Concerns Assessment Noted Time PHQ-9 Depression Total Score: 0 12/26/19 23 1:52 PM EDT documented as of this encounter Care Teams Tap And Die Maker Technician Relationship Specialty Start Date End Date NameTone MD [address] [place] [address] PCP - General Family Medicine 08/17/19 Annie SETHIA 02/16/25 04/18/25 documented as of this encounter
--- OUTSIDE RECORDS SUMMARY | 2025-08-17 21:45 | XMS_ITS | Encounter Summary ---
Author Organization [employer] Address 75 [facility] 7t [place] [address] Care Team Providers Care Oscillograph Technician Name Role Phone Name, Tone SEPULVEDA Primary Care Provider [phone] Reason for Visit * Reason Comments Med Refill Encounter Details Date Type Department Care Team ([facility] st Contact Info) Description 08/30/2024 Refill [facility] MEDICINE 230 [place] [address] Name, MD Tone 230 [place], [place] [phone] Chronic back pain, unspecified back location, unspecified [...] Description 08/19/2025 11:00 AM EST Office Visit [address] [address] NameTone MD [address] [place] [address] 10/03/2025 3:15 PM EST Office Visit [address] [address] Name, MD Tone [address] [place] [address] 11/04/2025 2:00 PM EST Telemedicine [address] [address] Tanya Ellison, [place] documented as of this encounter Visit Diagnoses Diagnosis Chronic back pain, unspecified back location, unspecified back pain laterality documented in this encounter Additional Health Concerns Assessment Noted Time PHQ-9 Depression Total Score: 11 024 2:10 PM EDT documented as of this encounter Care Teams Oscillograph Technician Relationship Specialty Start Date End Date Name, MD Tone [address] [place] [address] PCP - General Family Medicine 08/17/19 Annie SETHIA 02/16/25 04/18/25 documented as of this encounter
--- OUTSIDE RECORDS SUMMARY | 2025-08-17 21:45 | XMS_ITS | Encounter Summary ---
Author Organization [employer] Address 75 [facility] 7t [place] [address] Care Team Providers Care Boring Mill Operator Name Role Phone Name, Tone SEPULVEDA Primary Care Provider [phone] Reason for Visit * Reason Onset Date Comments Referral 08/14/2023 Encounter Details Date Type Department Care Team ([facility] st Contact Info) Description 08/14/2023 Telephone [facility] MEDICINE 230 [place] [address] Name, MD Tone 230 [place], [place] [phone] Referral Social History Tobacco Use Types Packs/Day [...] No answer. Lvm to call back on [phone]. Please review and advise if needed. * Telephone Encounter - Toni Galdamez - 08/14/2023 3:22 PM EST Tc from James at [facility] requesting referrals for Nursing, Occupational Therapy and Medication Management any questions please call James at documented in this encounter Plan of Treatment Upcoming Encounters Date Type Department Care Team (Late st Contact Info) Description 08/19/2025 11:00 AM EST Office Visit [address] [address] Name, MD Tone [address] [place] [address] 10/03/2025 3:15 PM EST Office Visit [address] [address] Name, MD Tone [address] [place] [address] 11/04/2025 2:00 PM EST Telemedicine [address] [address] Tanya Ellison RN documented as of this encounter Visit Diagnoses Not on filedocumented in this encounter Additional Health Concerns Assessment Noted Time PHQ-9 Depression Total Score: 0 12/26/19 23 1:52 PM EDT documented as of this encounter Care Teams Boring Mill Operator Relationship Specialty Start Date End Date Name, MD Tone 230 [place] [address] PCP - General Family Medicine 08/17/19 Annie SETHIA 02/16/25 04/18/25 documented as of this encounter
--- OUTSIDE RECORDS SUMMARY | 2025-08-17 21:45 | XMS_ITS | Encounter Summary ---
Author Organization [employer] Address 75 [facility] 7t [place] [address] Care Team Providers Care De Alcholizer Name Role Phone Name, Tone SEPULVEDA Primary Care Provider [phone] Reason for Visit * Reason Comments Med Refill Encounter Details Date Type Department Care Team ([facility] st Contact Info) Description 09/01/2024 Refill [facility] MEDICINE 230 [place] [address] Name, MD Tone 230 [place], [place] [phone] Chronic back pain, unspecified back location, unspecified [...] Description 08/19/2025 11:00 AM EST Office Visit [address] [address] NameTone MD [address] [place] [address] 10/03/2025 3:15 PM EST Office Visit [address] [address] Name, MD Tone [address] [place] [address] 11/04/2025 2:00 PM EST Telemedicine [address] [address] Tanya Ellison, SHUBHAM documented as of this encounter Visit Diagnoses Diagnosis Chronic back pain, unspecified back location, unspecified back pain laterality documented in this encounter Additional Health Concerns Assessment Noted Time PHQ-9 Depression Total Score: 11 024 2:10 PM EDT documented as of this encounter Care Teams De Alcholizer Relationship Specialty Start Date End Date Name, MD Tone [address] [place] [address] PCP - General Family Medicine 08/17/19 nAnie SETHIA 02/16/25 04/18/25 documented as of this encounter
--- OUTSIDE RECORDS SUMMARY | 2025-08-17 21:45 | XMS_ITS | Encounter Summary ---
Author Organization [employer] Address 75 [facility] 7t [place] [address] Care Team Providers Care Coal Passer Name Role Phone Name, Tone SEPULVEDA Primary Care Provider [phone] Reason for Visit * Reason Onset Date Comments Medication Question 08/18/2023 Encounter Details Date Type Department Care Team ([facility] st Contact Info) Description 08/18/2023 Telephone [facility] MEDICINE 230 [place] [address] Name, MD Tone 230 [place] [address] Medication Question Social History Tobacco Use Types [...] and understood. Advised to give call to [facility] if any questions or concerns. * Telephone Encounter - Sherri Cummings - 08/18/2023 3:58 PM EST Tc from Sarah with [facility] requesting a call from a nurse in regards to pt med list not coordinating with what she has. Please contact Sarah @ [phone] documented in this encounter Plan of Treatment Upcoming Encounters Date Type Department Care Team (Late st Contact Info) Description 08/19/2025 11:00 AM EST Office Visit [facility] MEDICINE [address] [place] [address] Name, MD Tone [address] [place] [address] 10/03/2025 3:15 PM EST Office Visit [address] [place] [address] Name, MD [facility] [place] [address] 11/04/2025 2:00 PM EST Telemedicine [address] [address] Tanya Ellison RN documented as of this encounter Visit Diagnoses Not on filedocumented in this encounter Additional Health Concerns Assessment Noted Time PHQ-9 Depression Total Score: 0 12/26/19 23 1:52 PM EDT documented as of this encounter Care Teams Coal Passer Relationship Specialty Start Date End Date Name, MD [facility]one [facility] [place] [address] PCP - General Family Medicine 08/17/19 Annie SETHIA 02/16/25 04/18/25 documented as of this encounter
--- OUTSIDE RECORDS SUMMARY | 2025-08-17 21:45 | XMS_ITS | Encounter Summary ---
Author Organization [employer] Address 75 [facility] 7t [place] [address] Care Team Providers Care Traffic Control Supervisor Name Role Phone Name, Tone SEPULVEDA Primary Care Provider [phone] Reason for Visit * Reason Onset Date Comments Prior Authorization 08/11/2023 [employer]AM Encounter Details Date Type Department Care Team ([facility] st Contact Info) Description 08/11/2023 Telephone [facility] MEDICINE 230 [place] [address] Name, MD Tone 230 [place] [address] Prior Authorization (clonazePAM) Social History Tobacco Use [...] t he electric, gas, oil or water [employer] ([employer]) threatened to shut off services in your [...] Description 08/19/2025 11:00 AM EST Office Visit [facility] MEDICINE [address] [place] [address] Name, MD Tone [address] [place] [address] 10/03/2025 3:15 PM EST Office Visit [address] [address] Name, MD Tone [address] [place] [address] 11/04/2025 2:00 PM EST Telemedicine [address] [address] Tanya Ellison, [place] documented as of this encounter Visit Diagnoses Not on filedocumented in this encounter Additional Health Concerns Assessment Noted Time PHQ-9 Depression Total Score: 0 12/26/19 23 1:52 PM EDT documented as of this encounter Care Teams Traffic Control Supervisor Relationship Specialty Start Date End Date Name, MD Tone 230 [place] [address] PCP - General Family Medicine 08/17/19 Annie HERNANDEZ 02/16/25 04/18/25 documented as of this encounter
--- OUTSIDE RECORDS SUMMARY | 2025-08-17 21:45 | XMS_ITS | Encounter Summary ---
Author Organization [employer] Address [address] [facility] [address] [place] [address] Care Team Providers Care International Accountant Name Role Phone Name, Tone SEPULVEDA Primary Care Provider [phone] Encounter Details Date Type Department Care Team (Late Contact Info) Description 09/16/2022 Orders Only [facility] [address] [place] [address] Viola Gamino LPN Social History Tobacco Use [...] Description 08/19/2025 11:00 AM EST Office Visit [address] [phone] Tone Cool MD [address] [place] [address] 10/03/2025 3:15 PM EST Office Visit [address] [phone] NameTone MD [address] [place] [address] 11/04/2025 2:00 PM EST Telemedicine [facility] [address] [facility] [place] [address] Tanya Ellison RN documented as of this [...] SENSITIVITY TROPONIN I (10/14/2022 12:22 PM EST) [facility] TROPONIN I HIGH SENSITIVITY <3.5 <3.5 - 17.0 ng/L [facility] Comment:The Felder high sens itivity Troponin-I results should beused in conjunction with other diagnostic information suchas ECG, clinical observations and information, and patientsymptoms to aid in the diagnosis of CO. 10/14/2022 12:2 2 PM EST 10/14/2022 12:32 PM EST [facility] External Provider LAB BLO OD ORDERABLES Final Result Performing Organization Address [facility] Co de Phone Number [facility] [address] [place] [phone] * B Type Natriuretic Peptide (BNP) (10/14/2022 12:22 PM EST) [facility] B Type Natriuretic Peptide 42 <100 pg/mL [facility] Comment:For those patients w ho are being treated with Natrecor(nesiritide, recombinant BNP), BNP testing should beperformed at least two hours post treatment in order toensure that only endogenous levels of BNP are detected. 10/14/2022 12:2 2 PM EST 10/14/2022 12:32 PM EST [facility] External Provider LAB BLO OD ORDERABLES Final Result Performing Organization Address City/[facility] Co de Phone Number [facility] [address] [place] [phone] * (ABNORMAL) Comprehensive Metabolic Panel (10/14/2022 12:22 PM EST) Sodium 140 135 - 145 mmol/L [facility] Potassium 4.2 3.3 - 5.1 mmol/L [facility] Chloride 106 96 - 108 mmol/L [facility] Carbon Dioxide 25 22 - 29 mmol/L [facility] Anion Gap 13 12 - 20 [facility] Urea Nitrogen (BUN) 10 9 - 16 mg/dL [facility] Creatinine, Serum 0.67 0.5 - 1.4 mg/dL [facility] Creatinine Clr Calc Pharmacy 106.8 [facility] Comment:Provided height and weight: 167.64 cm,107.955 kg.eGFR (calculated from the MDRD study equation) and eCrCl(calculated from the Cockcroft-Gault equation) are based ondifferent parameters and may not yield comparable results.If eCrCl result is absurd, please check patient'sheight/weight. Estimated Glomerular Filt Rate >60 [facility] Comment:NOTE: For -Am erican individuals, multiply the result by 1.210.Chronic Kidney Disease: Estimated GFR < 60 mL/min/1.47e4Xovhxd Kidney Disease: Estimated GFR < 15 mL/min/1.73m2 Glucose 107 60 - 115 mg/dL [facility] Calcium 10.0 8.4 - 10.2 mg/dL [facility] Bilirubin, Total 0.3 0.0 - 1.0 mg/dL [facility] Aspartate Amino Transferase 18 5 - 31 U/L [facility] Alanine Aminotransferase 20 0 - 31 U/L [facility] Total Protein 7.3 6.5 - 8.0 g/dL [facility] Albumin Level 4.6 3.5 - 5.0 g/dL [facility] Alkaline Phosphatase 143(H) 39 - 117 U/L [facility] 10/14/2022 12:2 2 PM EST 10/14/2022 12:32 PM EST us [facility] External Provider LAB BLO OD ORDERABLES Final Result [facility] [address] [place] [address] [phone] * (ABNORMAL) APTT (10/14/2022 12:22 PM EST) Partial Thromboplastin Time 38.4(H) 26.0 - 36.4 SEC [facility] 10/14/2022 12:2 2 PM EST 10/14/2022 12:32 PM EST [facility] External Provider LAB BLO OD ORDERABLES Final Result Performing Organization Address [facility]/ZIP Co de Phone Number [facility] [address] [place] [phone] * Prothrombin Time-INR (10/14/2022 12:22 PM EST) Pathologist [facility] Prothrombin Time 10.8 10.0 - 13.1 SEC [facility] INTERNATIONAL NORM RATIO 0.9 0.9 - 1.1 [facility] Comment:INTERNATIONAL NORMAL IZED RATIO (INR) [...] 2 PM EST 10/14/2022 12:32 PM EST [facility] External Provider LAB BLO OD ORDERABLES Final Result Performing Organization Address [facility]/ZIP Co de Phone Number [facility] [address] [place] [phone] * (ABNORMAL) CBC auto differential (10/14/2022 12:22 PM EST) White Blood Count 6.8 4.8 - 10.8 X10*3/uL [facility] Red Blood Count 5.37 4.20 - 5.50 X10*6/uL [facility] Hemoglobin 15.1 12.0 - 16.0 g/dl [facility] Hematocrit 47.0 37.0 - 47.0 % [facility] Mean Corpuscular Volume 87.5 80.0 - 98.0 fL [facility] Mean Corpuscular Hemoglobin 28.1 27.0 - 33.0 pg [facility] Mean Corpuscular HGB Conc 32.1 31.0 - 35.0 g/dl [facility] Red Cell Distribution Width 12.8 11.0 - 16.0 % [facility] Platelet Count 310 160 - 400 X10*3/uL [facility] Mean Platelet Volume 10.0 9.4 - 12.3 fL [facility] Neutrophils Percent Auto 74.1(H) 45 - 73 % [facility] Imm Gran Pct Auto 0.1 0.0 - 0.4 % [facility] Lymphocytes Percent Auto 18.9(L) 20 - 40 % [facility] Monocytes Percent Auto 4.1 2 - 11 % [facility] Eosinophils Percent Auto 1.6 0 - 4 % [facility] Basophils Percent Auto 1.2 0 - 2 % [facility] NRBC Pct Auto 0.0 0.0 - 0.2 /100WBC [facility] Neutrophils Absolute Auto 5.0 2.0 - 8.3 x10*3/uL [facility] Imm Gran Abs Auto 0.01 0.00 - 0.03 X10*3/uL [facility] Lymphocytes Absolute Auto 1.3 1.2 - 4.9 X10*3/uL [facility] Monocytes Absolute Auto 0.3 0.1 - 1.2 X10*3/uL [facility] Eosinophils Absolute Auto 0.1 0.0 - 0.4 X10*3/uL [facility] Basophils Absolute Auto 0.1 0.0 - 0.2 X10*3/uL [facility] NRBC Abs Auto 0.000 0.0 - 0.012 X10*3/uL [facility] 10/14/2022 12:2 2 PM EST 10/14/2022 12:32 PM EST [facility] External Provider LAB BLO OD ORDERABLES Final Result Performing Organization Address City/[facility] Co de Phone Number [facility] [address] [place] [phone] * HIGH SENSITIVITY TROPONIN I (10/08/2022 5:21 PM EST) Pathologist [facility] TROPONIN I HIGH SENSITIVITY <3.5 <3.5 - 17.0 ng/L [facility] Comment:The Felder high sens itivity Troponin-I results should beused in conjunction with other diagnostic information suchas ECG, clinical observations and information, and patientsymptoms to aid in the diagnosis of CO. 10/08/2022 5:21 PM EST 10/08/2022 5:25 PM EST [facility] External Provider LAB BLO OD ORDERABLES Final Result Performing Organization Address [facility]/ZIP Co de Phone Number [facility] [address] [place] [phone] * Creatine Kinase, Total (10/08/2022 5:21 PM EST) Pathologist [facility] Creatine Kinase Total 70 26 - 140 U/L [facility] 10/08/2022 5:21 PM EST 10/08/2022 5:25 PM EST [facility] External Provider LAB BLO OD ORDERABLES Final Result Performing Organization Address [facility] Co de Phone Number [facility] [address] [place] [phone] * (ABNORMAL) Basic Metabolic Panel (10/08/2022 5:21 PM EST) Pathologist [facility] Sodium 142 135 - 145 mmol/L [facility] Potassium 4.0 3.3 - 5.1 mmol/L [facility] Comment:Slight Hemolysis Chloride 106 96 - 108 mmol/L [facility] Carbon Dioxide 28 22 - 29 mmol/L [facility] Anion Gap 12 12 - 20 [facility] Urea Nitrogen (BUN) 8(L) 9 - 16 mg/dL [facility] Creatinine, Serum 0.65 0.5 - 1.4 mg/dL [facility] Creatinine Clr Calc Pharmacy 110.6 [facility] Comment:Provided height and weight: 167.64 cm,108.862 kg.eGFR (calculated from the MDRD study equation) and eCrCl(calculated from the Cockcroft-Gault equation) are based ondifferent parameters and may not yield comparable results.If eCrCl result is absurd, please check patient'sheight/weight. Estimated Glomerular Filt Rate >60 [facility] Comment:NOTE: For -Am erican individuals, multiply the result by 1.210.Chronic Kidney Disease: Estimated GFR < 60 mL/min/1.31j2Oebxuh Kidney Disease: Estimated GFR < 15 mL/min/1.73m2 Glucose 104 60 - 115 mg/dL [facility] Calcium 9.4 8.4 - 10.2 mg/dL [facility] 10/08/2022 5:21 PM EST 10/08/2022 5:25 PM EST us [facility] External Provider LAB BLO OD ORDERABLES Final Result [facility] [place] [address] [phone] * CBC auto differential (10/08/2022 5:21 PM EST) White Blood Count 7.3 4.8 - 10.8 X10*3/uL [facility] Red Blood Count 4.70 4.20 - 5.50 X10*6/uL [facility] Hemoglobin 13.5 12.0 - 16.0 g/dl [facility] Hematocrit 42.4 37.0 - 47.0 % [facility] Mean Corpuscular Volume 90.2 80.0 - 98.0 fL [facility] Mean Corpuscular Hemoglobin 28.7 27.0 - 33.0 pg [facility] Mean Corpuscular HGB Conc 31.8 31.0 - 35.0 g/dl [facility] Red Cell Distribution Width 13.1 11.0 - 16.0 % [facility] Platelet Count 298 160 - 400 X10*3/uL [facility] Mean Platelet Volume 10.2 9.4 - 12.3 fL [facility] Neutrophils Percent Auto 64.4 45 - 73 % [facility] Imm Gran Pct Auto 0.4 0.0 - 0.4 % [facility] Lymphocytes Percent Auto 24.7 20 - 40 % [facility] Monocytes Percent Auto 7.4 2 - 11 % [facility] Eosinophils Percent Auto 2.1 0 - 4 % [facility] Basophils Percent Auto 1.0 0 - 2 % [facility] NRBC Pct Auto 0.0 0.0 - 0.2 /100WBC [facility] Neutrophils Absolute Auto 4.7 2.0 - 8.3 x10*3/uL [facility] Imm Gran Abs Auto 0.03 0.00 - 0.03 X10*3/uL [facility] Lymphocytes Absolute Auto 1.8 1.2 - 4.9 X10*3/uL [facility] Monocytes Absolute Auto 0.5 0.1 - 1.2 X10*3/uL [facility] Eosinophils Absolute Auto 0.2 0.0 - 0.4 X10*3/uL [facility] Basophils Absolute Auto 0.1 0.0 - 0.2 X10*3/uL [facility] NRBC Abs Auto 0.000 0.0 - 0.012 X10*3/uL [facility] 10/08/2022 5:21 PM EST 10/08/2022 5:25 PM EST us [facility] External Provider LAB BLO OD ORDERABLES Final Result Performing Organization Address [facility] Co de Phone Number [facility] [address] [place] [address] [phone] * SARS-CoV-2 RNA, Influenza A/B, and RSV RNA, Ql NAAT (09/24/2022 12:31 PM EST) Influenza A PCR NEGATIVE Negative [facility] Influenza B PCR NEGATIVE Negative [facility] Resp Syncy Virus RNA Qual PCR NEGATIVE Negative [facility] SARS COV2 PCR NEGATIVE Negative [facility] SARS/Flu/RSV Note See Note [facility] Comment:All test results mus t [...] use by authorized laboratories.Testing performed on the [employer]_ GeneXpert utilizingreal-time RT-PCR.All SARS CoV2 and positive influenza A/B results arereported to [facility]. 09/24/2022 12:3 1 PM EST 09/24/2022 12:39 PM EST [facility] Exter nal Provider LAB MICROBIOLOGY - GENERAL ORDERABLES Final Result Performing Organization Address [facility] Co de Phone Number [facility] [address] [place] [address] [phone] * HIGH SENSITIVITY TROPONIN I (09/24/2022 12:31 PM EST) TROPONIN I HIGH SENSITIVITY <3.5 <3.5 - 17.0 ng/L [facility] Comment:The Felder high sens itivity Troponin-I results should beused in conjunction with other diagnostic information suchas ECG, clinical observations and information, and patientsymptoms to aid in the diagnosis of CO. 09/24/2022 12:3 1 PM EST 09/24/2022 12:39 PM EST [facility] External Provider LAB BLO OD ORDERABLES Final Result Performing Organization Address [facility]/ZIP Co de Phone Number [facility] [address] [place] [phone] * B Type Natriuretic Peptide (BNP) (09/24/2022 12:31 PM EST) B Type Natriuretic Peptide 20 <100 pg/mL [facility] Comment:For those patients w ho are being treated with Natrecor(nesiritide, recombinant BNP), BNP testing should beperformed at least two hours post treatment in order toensure that only endogenous levels of BNP are detected. 09/24/2022 12:3 1 PM EST 09/24/2022 12:39 PM EST [facility] External Provider LAB BLO OD ORDERABLES Final Result Performing Organization Address [facility] Co de Phone Number [facility] [address] [place] [phone] * (ABNORMAL) Comprehensive Metabolic Panel (09/24/2022 12:31 PM EST) Sodium 141 135 - 145 mmol/L [facility] Potassium 4.2 3.3 - 5.1 mmol/L [facility] Chloride 109(H) 96 - 108 mmol/L [facility] Carbon Dioxide 23 22 - 29 mmol/L [facility] Anion Gap 13 12 - 20 [facility] Urea Nitrogen (BUN) 11 9 - 16 mg/dL [facility] Creatinine, Serum 0.67 0.5 - 1.4 mg/dL [facility] Creatinine Clr Calc Pharmacy 106.8 [facility] Comment:Provided height and weight: 167.64 cm,107.955 kg.eGFR (calculated from the MDRD study equation) and eCrCl(calculated from the Cockcroft-Gault equation) are based ondifferent parameters and may not yield comparable results.If eCrCl result is absurd, please check patient'sheight/weight. Estimated Glomerular Filt Rate >60 [facility] Comment:NOTE: For -Am erican individuals, multiply the result by 1.210.Chronic Kidney Disease: Estimated GFR < 60 mL/min/1.93q9Mgmeey Kidney Disease: Estimated GFR < 15 mL/min/1.73m2 Glucose 98 60 - 115 mg/dL [facility] Calcium 9.9 8.4 - 10.2 mg/dL [facility] Bilirubin, Total 0.2 0.0 - 1.0 mg/dL [facility] Aspartate Amino Transferase 18 5 - 31 U/L [facility] Alanine Aminotransferase 24 0 - 31 U/L [facility] Total Protein 7.3 6.5 - 8.0 g/dL [facility] Albumin Level 4.4 3.5 - 5.0 g/dL [facility] Alkaline Phosphatase 138(H) 39 - 117 U/L [facility] 09/24/2022 12:3 1 PM EST 09/24/2022 12:39 PM EST [facility] External Provider LAB BLO OD ORDERABLES Final Result Performing Organization Address [facility] Co de Phone Number [facility] [address] [place] [phone] * (ABNORMAL) APTT (09/24/2022 12:31 PM EST) Partial Thromboplastin Time 38.7(H) 26.0 - 36.4 SEC [facility] 09/24/2022 12:3 1 PM EST 09/24/2022 12:39 PM EST [facility] External Provider LAB BLO OD ORDERABLES Final Result Performing Organization Address [facility] Co de Phone Number [facility] [address] [place] [address] [phone] * Prothrombin Time-INR (09/24/2022 12:31 PM EST) Pathologist [facility] Prothrombin Time 10.3 10.0 - 13.1 SEC [facility] INTERNATIONAL NORM RATIO 0.9 0.9 - 1.1 [facility] Comment:INTERNATIONAL NORMAL IZED RATIO (INR) [...] PM EST 09/24/2022 12:39 PM EST us [facility] External Provider LAB BLO OD ORDERABLES Final Result [facility] [address] [place] [address] [phone] * CBC auto differential (09/24/2022 12:31 PM EST) [facility] White Blood Count 7.0 4.8 - 10.8 X10*3/uL [facility] Red Blood Count 5.07 4.20 - 5.50 X10*6/uL [facility] Hemoglobin 14.6 12.0 - 16.0 g/dl [facility] Hematocrit 44.9 37.0 - 47.0 % [facility] Mean Corpuscular Volume 88.6 80.0 - 98.0 fL [facility] Mean Corpuscular Hemoglobin 28.8 27.0 - 33.0 pg [facility] Mean Corpuscular HGB Conc 32.5 31.0 - 35.0 g/dl [facility] Red Cell Distribution Width 13.2 11.0 - 16.0 % [facility] Platelet Count 299 160 - 400 X10*3/uL [facility] Mean Platelet Volume 10.4 9.4 - 12.3 fL [facility] Neutrophils Percent Auto 65.1 45 - 73 % [facility] Imm Gran Pct Auto 0.3 0.0 - 0.4 % [facility] Lymphocytes Percent Auto 25.3 20 - 40 % [facility] Monocytes Percent Auto 6.5 2 - 11 % [facility] Eosinophils Percent Auto 1.7 0 - 4 % [facility] Basophils Percent Auto 1.1 0 - 2 % [facility] NRBC Pct Auto 0.0 0.0 - 0.2 /100WBC [facility] Neutrophils Absolute Auto 4.5 2.0 - 8.3 x10*3/uL [facility] Imm Gran Abs Auto 0.02 0.00 - 0.03 X10*3/uL [facility] Lymphocytes Absolute Auto 1.8 1.2 - 4.9 X10*3/uL [facility] Monocytes Absolute Auto 0.5 0.1 - 1.2 X10*3/uL [facility] Eosinophils Absolute Auto 0.1 0.0 - 0.4 X10*3/uL [facility] Basophils Absolute Auto 0.1 0.0 - 0.2 X10*3/uL [facility] NRBC Abs Auto 0.000 0.0 - 0.012 X10*3/uL [facility] 09/24/2022 12:3 1 PM EST 09/24/2022 12:39 PM EST us [facility] External Provider LAB BLO OD ORDERABLES Final Result [facility] [address] [place] [address] [phone] documented in this encounter Visit Diagnoses Not on filedocumented in this encounter Care Teams International Accountant Relationship Specialty Start Date End Date Name, MD Tone [address] [place] [phone] PCP - General Family Medicine 08/17/19 Annie HERNANDEZ 02/16/25 04/18/25 documented as of this encounter
--- OUTSIDE RECORDS SUMMARY | 2025-08-17 21:45 | XMS_ITS | Encounter Summary ---
Author Organization [employer] Address [address] [facility] [address] [place] [address] Care Team Providers Care Brazer Assembler Name Role Phone Name, Tone SEPULVEDA Primary Care Provider [phone] Encounter Details Date Type Department Care Team ([facility] st Contact Info) Description 03/07/2025 Orders Only [facility] [address] [place] [address] ProviderEvangelist MD Social History Tobacco Use Types [...] Description 08/19/2025 11:00 AM EST Office Visit [facility] MEDICINE [address] [place] [phone] NameTone MD [address] [place] [phone] 10/03/2025 3:15 PM EST Office Visit [address] [address] Name, MD Tone [address] [place] [phone] 11/04/2025 2:00 PM EST Telemedicine [facility] MEDICINE [address] [place] [address] Tanya Ellison, RN documented as of this [...] documented as of this encounter Care Teams Brazer Assembler Relationship Specialty Start Date End Date Name, [place] [address] PCP - General Family Medicine 08/17/19 [facility] 02/16/25 04/18/25 documented as of this encounter
--- OUTSIDE RECORDS SUMMARY | 2025-08-17 21:45 | XMS_ITS | Encounter Summary ---
Author Organization [employer] Address [address] [facility] [address]t [place] [address] Care Team Providers Care Hanging Flags Decorator Name Role Phone Name, Tone SEPULVEDA Primary Care Provider [phone] Reason for Visit * Reason Onset Date Comments FYI 08/11/2023 Encounter Details Date Type Department Care Team ([facility] st Contact Info) Description 08/11/2023 Telephone [facility] [address] [place] [address] Name, MD Tone [address] [place] [address] FYI Social History Tobacco Use Types Packs/Day [...] - 08/11/2023 9:19 AM EST Tc from [facility] with [facility] calling to advise PCP pt will be admitted tomorrow (08/12) for PT services. documented in this encounter Plan of Treatment Upcoming Encounters Date Type Department Care Team (Late st Contact Info) Description 08/19/2025 11:00 AM EST Office Visit [address] [address] NameTone MD [address] [place] [phone] 10/03/2025 3:15 PM EST Office Visit [address] [address] Name, MD Tone [address] [place] [phone] 11/04/2025 2:00 PM EST Telemedicine [address] [address] Tanya Ellison, [place] documented as of this encounter Visit Diagnoses Not on filedocumented in this encounter Additional Health Concerns Assessment Noted Time PHQ-9 Depression Total Score: 0 12/26/19 23 1:52 PM EDT documented as of this encounter Care Teams Hanging Flags Decorator Relationship Specialty Start Date End Date Name, MD Tone [address] [place] [address] PCP - General Family Medicine 08/17/19 Annie HERNANDEZ 02/16/25 04/18/25 documented as of this encounter
--- OUTSIDE RECORDS SUMMARY | 2025-08-17 21:45 | XMS_ITS | Encounter Summary ---
Author Organization [employer] Address [address] [facility] [address] [place] [address] Care Team Providers Care Train Braker Name Role Phone Name, Tone SEPULVEDA Primary Care Provider [phone] Reason for Visit * Reason Onset Date Comments ER Follow-up 08/11/2023 Encounter Details Date Type Department Care Team ([facility] st Contact Info) Description 08/11/2023 Telephone [facility] [address] [place] [address] Name, MD Tone [address] [place] [address] ER Follow-up Social History Tobacco Use Types [...] the past 12 months, has t he [place], oil or water [employer] threatened to shut off services in your [...] report ED [facility]2023 [facility]. Seen for two times fall. Patient advised will forward to team nurse for follow up. documented in this encounter Plan of Treatment Upcoming Encounters Date Type Department Care Team (Late st Contact Info) Description 08/19/2025 11:00 AM EST Office Visit [address] [address] Name, MD Tone [address] [place] [phone] 10/03/2025 3:15 PM EST Office Visit [address] [address] Name, MD Tone [address] [place] [phone] 11/04/2025 2:00 PM EST Telemedicine [address] [address] Tanya Ellison RN documented as of this encounter Visit Diagnoses Not on filedocumented in this encounter Additional Health Concerns Assessment Noted Time PHQ-9 Depression Total Score: 0 12/26/19 23 1:52 PM EDT documented as of this encounter Care Teams Train Braker Relationship Specialty Start Date End Date Name, MD Tone [address] [place] [phone] PCP - General Family Medicine 08/17/19 Annie HERNANDEZ 02/16/25 04/18/25 documented as of this encounter
--- OUTSIDE RECORDS SUMMARY | 2025-08-17 21:45 | XMS_ITS | Encounter Summary ---
Author Organization [employer] Address [address] [facility] [address] [place] [address] Care Team Providers Care Organic Preparation Analyst Name Role Phone Name, Tone SEPULVEDA Primary Care Provider [phone] Reason for Visit * Reason Onset Date Comments Call Back Request 09/16/2023 Encounter Details Date Type Department Care Team ([facility] st Contact Info) Description 09/16/2023 Telephone [facility] [address] [place] [address] Name, MD Tone [address] [place] [address] Call Back Request Social History Tobacco Use [...] to call back the call center however gag writer does not see anything on patient chart documented in this encounter Plan of Treatment Upcoming Encounters Date Type Department Care Team (Late st Contact Info) Description 08/19/2025 11:00 AM EST Office Visit [address] [address] NameTone MD [address] [place] [phone] 10/03/2025 3:15 PM EST Office Visit [address] [address] NameTone MD [address] [place] [phone] 11/04/2025 2:00 PM EST Telemedicine [address] [address] Tanya Ellison RN documented as of this encounter Visit Diagnoses Not on filedocumented in this encounter Additional Health Concerns Assessment Noted Time PHQ-9 Depression Total Score: 0 12/26/19 23 1:52 PM EDT documented as of this encounter Care Teams Organic Preparation Analyst Relationship Specialty Start Date End Date Tone Cool MD [address] [place] [phone] PCP - General Family Medicine 08/17/19 Annie HERNANDEZ 02/16/25 04/18/25 documented as of this encounter
--- OUTSIDE RECORDS SUMMARY | 2025-08-17 21:45 | XMS_ITS | Clinical Summary ---
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 Not Detected LAB MICROBIOLOGY METHOD 07/06/2025 12:[address] [facility] Chlamydia pneumoniae Not Detected Not Detected LAB MICROBIOLOGY METHOD 07/06/2025 12:[address] [facility] SARS COV-2 Not Detected Not Detected LAB MICROBIOLOGY METHOD 07/06/2025 12:[address] [facility] Swab Both anterior nares / Unknown Non-blood Collection / Unknown 07/05/2025 10:47 PM EDT 07/05/2025 11:21 PM EDT [facility] - 07/06/2025 12:18 AM EDT Testing was performed using the Peak Respiratory Pathogen PCR Assay. All results must [...] are below the limit of detection. us Damaris Shi MD LAB MICROBIOLOGY - GENERAL ORDER MEG Final Result [facility] [address] [place] [address], [place] [phone] * 12-Lead ECG (07/05/2025 10:36 PM EDT) Only the most recent of2 resultswithin the time period is included. Ventricular Rate ECG 69 BPM GEMUSE Atrial Rate 69 BPM GEMUSE P-R Interval 176 ms GEMUSE QRS Duration 82 ms GEMUSE Q-T Interval 384 ms GEMUSE QTc 411 ms GEMUSE P Wave [place] 40 degrees GEMUSE R [place] 19 degrees GEMUSE T [place] 74 degrees GEMUSE ECG Interpretation Normal sinus rhythm ST and T wave abnormality, consider lateral ischemia Abnormal ECG When compared with ECG of 19-JUN-2025 14:58, No significant change was found Confirmed by MD JUDSON, BOLIVAR ([id number]) on 07/06/2025 8:40:01 AM GEMUSE 07/05/2025 10:3 6 PM EDT 07/06/2025 8:40 AM EDT Damaris Shi MD ECG ORDERABLES Final Result Performing Organization Address [facility] de Phone Number GEMUSE * (ABNORMAL) CBC (07/05/2025 10:14 PM EDT) [facility] WBC 6.9 4.8 - 10.8 K/mcL LAB HEMETOLOGY METHOD 07/05/2025 10:[address] [facility] RBC 4.50 3.80 - 4.80 M/mcL LAB HEMETOLOGY METHOD 07/05/2025 10:[address] [facility] Hemoglobin 11.8 11.5 - 16.0 g/dL LAB HEMETOLOGY METHOD 07/05/2025 10:[address] [facility] Hematocrit 38.8 35.0 - 47.0 % LAB HEMETOLOGY METHOD 07/05/2025 10:[address] [facility] MCV 85.5 79.0 - 98.0 FL LAB HEMETOLOGY METHOD 07/05/2025 10:[address] [facility] MCH 26.0(L) 27.0 - 32.0 pcg LAB HEMETOLOGY METHOD 07/05/2025 10:[address] [facility] MCHC 30.4(L) 32.0 - 37.0 g/dL LAB HEMETOLOGY METHOD 07/05/2025 10:[address] [facility] RDW 17.1(H) 11.0 - 15.0 % LAB HEMETOLOGY METHOD 07/05/2025 10:[address] [facility] Platelets 309 130 - 400 K/mcL LAB HEMETOLOGY METHOD 07/05/2025 10:[address] [facility] MPV 10.2 7.0 - 11.0 FL LAB HEMETOLOGY METHOD 07/05/2025 10:[address] [facility] NRBC 0.0 <1.0 % LAB HEMETOLOGY METHOD 07/05/2025 10:[address] [facility] NRBC Absolute 0.00 <0.10 K/mcL LAB HEMETOLOGY METHOD 07/05/2025 10:[address] [facility] Blood Venous blood specimen / Unknown Venipuncture / Unknown 07/05/2025 10:14 PM EDT 07/05/2025 10:26 PM EDT us Damaris Shi MD LAB BLOOD ORDERABLES Final Resul t [facility] [address] [place] [address], * (ABNORMAL) Basic Metabolic Panel (BMP) (07/05/2025 10:14 PM EDT) Sodium 140 133 - 145 mmol/L LAB CHEMISTRY METHOD 07/05/2025 10:[address] [facility] Potassium 4.2 3.5 - 5.5 mmol/L LAB CHEMISTRY METHOD 07/05/2025 10:[address] [facility] Chloride 105 96 - 110 mmol/L LAB CHEMISTRY METHOD 07/05/2025 10:[address] [facility] CO2 33(H) 21 - 32 mmol/L LAB CHEMISTRY METHOD 07/05/2025 10:[address] [facility] Anion Gap 2(L) 3 - 11 LAB CHEMISTRY METHOD 07/05/2025 10:[address] [facility] Glucose 105(H) 70 - 100 mg/dL LAB CHEMISTRY METHOD 07/05/2025 10:[address] [facility] BUN 11 5 - 25 mg/dL LAB CHEMISTRY METHOD 07/05/2025 10:[address] [facility] Creatinine 0.60 0.50 - 1.10 mg/dL LAB CHEMISTRY METHOD 07/05/2025 10:[address] [facility] eGFR 99 >=60 mL/min/1. 73m2 LAB CHEMISTRY METHOD 07/05/2025 10:[address] [facility] Comment:Calculation based on the Chronic Kidney Disease Epidemiology Collaboration (CKD-EPI) equation refit without adjustment for race. BUN/Creatinine Ratio 18.3 LAB CHEMISTRY METHOD 07/05/2025 10:[address] [facility] Calcium 9.3 8.5 - 10.5 mg/dL LAB CHEMISTRY METHOD 07/05/2025 10:[address] [facility] Blood Venous blood specimen / Unknown Venipuncture / Unknown 07/05/2025 10:14 PM EDT 07/05/2025 10:26 PM EDT us Damaris Shi MD LAB BLOOD ORDERABLES Final Resul t [facility] [address] [place] [address], [place] [phone] * XR Chest 2 Views (06/19/2025 3:48 PM EDT) Anatomical Region Laterality Modality Body Radiographic Azul ging 06/19/2025 3:49 PM EDT Impressions 06/19/2025 3:51 PM EDT Left lower lobe infiltrate suspicious for pneumonia. -------- FINAL REPORT -------- Dictated By: Loc Strickland Dictated Date: 06/19/2025 15:49 ET Assigned Physician: Loc Strickland Reviewed and Electronically Signed By: Loc Strickland Signed Date: 06/19/2025 15:51 ET Workstation ID: [id number] Transcribed By: Self Edit Transcribed Date: 06/19/2025 15:49 ET Narrative 06/19/2025 3:51 PM EDT INDICATION: Chest pain FINDINGS: Two views of the chest were obtained. Compared to multiple prior studies most recent from March 04, 2025. Study limited due to body habitus as well as technique. Left lower lobe infiltrate suspected. No pleural effusion. Cardiomediastinal silhouette is enlarged likely part secondary to low lung volumes as well as technique. Bony structures are within normal limits for the patient's age. Procedure Note Loc Strickland MD - 06/19/2025 INDICATION: Chest pain FINDINGS: Two views of the chest were obtained. Compared to multiple priorstudies most recent from March 04, 2025. Study limited due to body habitus as well as technique. Left lower lobeinfiltrate suspected. No pleural effusion. Cardiomediastinal silhouette is enlarged likely part secondary to low lungvolumes as well as technique. Bony structures are within normal limits for the patient's age. IMPRESSION: Left lower lobe infiltrate suspicious for pneumonia. -------- FINAL REPORT -------- Dictated By: Loc Strickland Dictated Date: 06/19/2025 15:49 ET Assigned Physician: Loc Strickland Reviewed and Electronically Signed By: Loc Strickland Signed Date: 06/19/2025 15:51 ET Workstation ID: [id number] Transcribed By: Self Edit Transcribed Date: 06/19/2025 15:49 ET Seble Jacobson MD IMG XR PROCEDURES Final Result * B-type natriuretic peptide (06/19/2025 3:29 PM EDT) BNP 16 <=100 pcg/mL LAB CHEMISTRY METHOD 06/19/2025 4:[address] [facility] Blood Venous blood specimen / Unknown Venipuncture / Unknown 06/19/2025 3:29 PM EDT 06/19/2025 3:37 PM EDT Seble Jacobson MD LAB BLOOD ORDERABLES Final Res ult Performing Organization Address [facility]/ZIP Co de Phone Number [facility] [address] [place] [address], * Magnesium (06/19/2025 3:29 PM EDT) Pathologist [facility] Magnesium 2.3 1.9 - 2.6 mg/dL LAB CHEMISTRY METHOD 06/19/2025 4:[address] [facility] Blood Venous blood specimen / Unknown Venipuncture / Unknown 06/19/2025 3:29 PM EDT 06/19/2025 3:37 PM EDT Seble Jacobson MD LAB BLOOD ORDERABLES Final Res ult Performing Organization Address City/[facility]/ZIP Co de Phone Number [facility] [address] [place] [address], [place] [phone] * External Colonoscopy Report (03/30/2025 7:21 AM EDT) Anatomical Region Laterality Modality Endoscopy Historical Provider GI~PROCEDURE ORDERABLES F inal Result * Hepatitis panel, acute with reflex to confirmation (03/04/2025 5:55 AM EDT) Hepatitis B Surface Ag Negative Negative LAB CHEMISTRY METHOD 03/04/2025 4:[address] [facility] Hepatitis A Antibody IgM Negative Negative LAB CHEMISTRY METHOD 03/04/2025 4:[address] [facility] Hep B Core IgM Negative Negative LAB CHEMISTRY METHOD 03/04/2025 4:[address] [facility] Hepatitis C Antibody Negative Negative LAB CHEMISTRY METHOD 03/04/2025 4:[address] [facility] Blood Venous blood specimen / Unknown Venipuncture / Unknown 03/04/2025 5:55 AM EDT 03/04/2025 6:13 AM EDT Heather LUNA LAB BLOOD ORDERABLES Final Result [facility] [address] [place] [address], * CT Lung Screening (12/13/2024 4:05 PM [...] Signed Date: 12/15/2024 17:14 ET Workstation ID: [id number] Transcribed By: Self Edit Transcribed Date: 12/15/2024 [...] Signed Date: 12/15/2024 17:14 ET Workstation ID: [id number] Transcribed By: Self Edit Transcribed Date: 12/15/2024 15:56 ET us Arnaud Phillips MD IMG CT PROCEDURES Final Result * (ABNORMAL) Lipid panel (06/12/2016) LDL/HDL Ratio 4 0 - 4 Triglycerides 253(A) 0 - 150 mg/dL Cholesterol 265(A) 0 - 200 mg/dL HDL 60 >=40 mg/dL LDL Cholesterol 155(A) 0 - 100 mg/dL Blood Venous blood specimen / Unknown us Historical Provider LAB BLOOD ORDERABLES Kesha l Result from Last 3 Months or Most Recently Relevant to Health Maintenance Insurance [facility] [employer] Member Subscriber Plan / Payer (Ef fective 2025-Present) Name:Annie Estes Relation to Subscriber:Self Name:Annie Estes Payer ID:[id number] Group ID:[id number] Type:Not on file Address: [place] [address] [address] [id number] Advance Directives * Full Code - Default [...] discontinue any currently active code status orders. Care Teams Support Technician Relationship Specialty Start Date End Date Name, MD Tone [address] [place] [address] PCP - General Internal Medicine 06/19/25
--- OUTSIDE RECORDS SUMMARY | 2025-08-17 21:45 | XMS_ITS | Clinical Summary ---
Author Organization [facility] Address [address] [address] Phone Care Team Providers Care General Activities Therapist Name Role Phone Name, Tone SEPULVEDA Primary Care Provider [phone] Allergies Active Allergy Reactions Criticality Noted Date [...] Date/Time Associated Diagnosis Comments BASIC METABOLIC PANEL (BMP) Routine 05/28/2024 8:16 AM EDT LIPID PANEL Routine 05/19/2024 9:14 AM EDT TSH WITH REFLEX Routine 05/19/2024 9:14 AM EDT from Last 3 Months or Most Recently Relevant to Health Maintenance Results * (ABNORMAL) Basic metabolic panel (05/28/2024 8:16 AM EDT) SODIUM 144 136 - 145 mmol/L [facility] POTASSIUM 4.2 3.4 - 5.1 mmol/L [facility] CHLORIDE 103 98 - 107 mmol/L [facility] CO2 30 22 - 31 mmol/L [facility] BUN 12 6 - 23 mg/dL [facility] CREATININE 0.48(L) 0.50 - 1.20 mg/dL [facility] GLUCOSE 87 70 - 100 mg/dL [facility] CALCIUM 9.3 8.8 - 10.7 mg/dL [facility] EGFR 105 >59 mL/min/1. 73m2 [facility] Comment:Estimated glomerular filtration rate calculated using the CKD-EPI refit equation. ANION GAP 11 7 - 17 mmol/L [facility] Blood 05/28/2024 8:16 AM EDT 05/28/2024 9:06 AM EDT Matti Elias MD LAB BLOOD BKR ORDERABLES Final Result Performing Organization Address City/[facility] Co de Phone Number [facility] [address] [place] [phone] * (ABNORMAL) TSH with reflex (05/19/2024 9:14 AM EDT) Pathologist [facility] TSH 9.78(H) 0.50 - 5.70 uIU/mL [facility] Blood 05/19/2024 9:14 AM EDT 05/19/2024 9:51 AM EDT Matti Elias MD LAB BLOOD BKR ORDERABLES Final Result Performing Organization Address City/[facility]/ZIP Co de Phone Number [address] [address] * (ABNORMAL) Lipid panel (05/19/2024 9:14 AM EDT) CHOLESTEROL 217(H) <200 mg/dL [facility] TRIGLYCERIDES 140 35 - 150 mg/dL [facility] HDL 67 40 - 80 mg/dL [facility] CALCULATED LDL 122 50 - 129 mg/dL [facility] VLDL 28 <31 mg/dL [facility] CARDIAC RISK RATIO 3.2 0.0 - 4.0 [facility] Blood 05/19/2024 9:14 AM EDT 05/19/2024 9:51 AM EDT us Matti Elias MD LAB BLOOD BKR ORDERABLES Final Result [facility] [address] [place] [address] from Last 3 Months or Most Recently Relevant to Health Maintenance Insurance MEDICARE PART A & B [facility] MEDICARE REPLACEMENT MEDICARE PART A & B [facility] MEDICARE REPLACEMENT MEDICARE PART A & B [facility] MEDICARE REPLACEMENT MEDICARE PART A & B [place] [facility] [facility] MEDICARE REPLACEMENT MEDICARE PART A & [facility] MEDICARE REPLACEMENT MEDICARE PART A & B [facility] MEDICARE REPLACEMENT Advance Directives For more information, please contact: [phone] (9AM - 5PM [facility], Friday-Friday) * Full Code (Latest Code Status on File) Date Activated Date Inactivated Comments 05/19/2024 2:04 AM Question Answer Comments Code Status Confirmed With: Patient Care Teams General Activities Therapist Relationship Specialty Start Date End Date Name, MD Tone [address] [place] [address] PCP - General Internal Medicine 05/18/24 Additional Source Comments The information contained in this document represents components of the legal health record. It is not the complete legal health record.[facility]
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
--- OUTSIDE RECORDS SUMMARY | 2025-08-17 21:46 | XMS_ITS | Encounter Summary ---
Author Organization [employer] Address [address] [facility] [address] 7t [place] [address] Care Team Providers Care Associate Professor Of Violin Name Role Phone Name, Tone SEPULVEDA Primary Care Provider [phone] Reason for Visit * Reason Comments Med Refill Encounter Details Date Type Department Care Team ([facility] st Contact Info) Description 06/26/2023 Refill [facility] [address] [place], [place] [phone] [facility] [address] [place] [address] Anxiety disorder, unspecified Social History Tobacco Use [...] 08/19/2025 11:00 AM EST Office Visit [address] [address] NameTone MD [address] [place] [address] 10/03/2025 3:15 PM EST Office Visit [address] [address] Name, MD Tone [address] [place] [address] 11/04/2025 2:00 PM EST Telemedicine [address] [address] Tanya Ellison, SHUBHAM documented as of this encounter Visit Diagnoses Diagnosis Anxiety disorder, unspecified documented in this encounter Additional Health Concerns Assessment Noted Time PHQ-9 Depression Total Score: 0 12/26/19 23 1:52 PM EDT documented as of this encounter Care Teams Associate Professor Of Violin Relationship Specialty Start Date End Date NameTone MD [address] [place] [address] PCP - General Family Medicine 08/17/19 Annie VNA 02/16/25 04/18/25 documented as of this encounter
--- OUTSIDE RECORDS SUMMARY | 2025-08-17 21:46 | XMS_ITS | Encounter Summary ---
Author Organization [employer] Address [address] [facility] [address] 7t [place] [address] Care Team Providers Care Hotel Front Office Manager Name Role Phone Name, Tone SEPULVEDA Primary Care Provider [phone] Reason for Visit * Reason Onset Date Comments Med Refill 06/23/2024 Patient walked i n requesting refill for clonazepam patient stated she is due for refill and needs a PA Encounter Details Date Type Department Care Team (Late st Contact Info) Description 06/23/2024 Refill [facility] [address] [place], [place] [phone] Name, MD Tone [address] [place], [place] [phone] Chronic back pain, unspecified back location, unspecified [...] Gamino LPN - 06/23/2024 11:02 AM EDT CHIEF GROWTH OFFICER 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 Next appointment 07/06/24. * Telephone Encounter - Vicky Hoskins - 06/23/2024 10:55 AM EDT TC from pt requesting medication refill. Medications needing refill : levothyroxine (Synthroid, Levoxyl) 150 MCG tablet To be sent to: [facility] - [place], [place] - [address] [facility] documented in this encounter Plan of Treatment Upcoming Encounters Date Type Department Care Team (Late st Contact Info) Description 08/19/2025 11:00 AM EST Office Visit [facility] [address] [place] [address] Name, MD Tone [address] [place] [address] 10/03/2025 3:15 PM EST Office Visit [facility] [place] [address] Name, MD Tone [facility] [place] [address] 11/04/2025 2:00 PM EST Telemedicine [address] [place] [address] Tanya Ellison, SHUBHAM documented as of this encounter Visit Diagnoses Diagnosis Chronic back pain, unspecified back location, unspecified back pain laterality documented in this encounter Additional Health Concerns Assessment Noted Time PHQ-9 Depression Total Score: 11 024 2:10 PM EDT documented as of this encounter Care Teams Hotel Front Office Manager Relationship Specialty Start Date End Date Name, MD Tone [facility] [address] PCP - General Family Medicine 08/17/19 Annie SETHIA 02/16/25 04/18/25 documented as of this encounter
--- OUTSIDE RECORDS SUMMARY | 2025-08-17 21:46 | XMS_ITS | Encounter Summary ---
Author Organization [employer] Address 75 [facility] 7t [place] [address] Care Team Providers Care Orchid Hand Name Role Phone Name, Tone SEPULVEDA Primary Care Provider [phone] Reason for Visit * Reason Onset Date Comments Med refill 05/19/2023 Encounter Details Date Type Department Care Team ([facility] st Contact Info) Description 05/19/2023 Telephone [facility] 230 [place], [place] [phone] Name, MD Tone 230 [place] [address] Med refill Social History Tobacco Use Types [...] 4:22 PM EDT Rosalinda Mayer RN from [facility] called to report patient self referral [...] Zolfran 4 mg tablet Please sent to [facility] - [place], [place] - [address] [place] [address] documented in this encounter Plan of Treatment Upcoming Encounters Date Type Department Care Team (Late st Contact Info) Description 08/19/2025 11:00 AM EST Office Visit [address] [address] Name, MD Tone [address] [place] [address] 10/03/2025 3:15 PM EST Office Visit [address] [address] Name, MD Tone [address] [place] [address] 11/04/2025 2:00 PM EST Telemedicine [address] [address] Tanya Ellison, SHUBHAM documented as of this encounter Visit Diagnoses Diagnosis Nausea Nausea alone documented in this encounter Additional Health Concerns Assessment Noted Time PHQ-9 Depression Total Score: 0 12/26/19 23 1:52 PM EDT documented as of this encounter Care Teams Orchid Hand Relationship Specialty Start Date End Date Name, MD Tone [address] [place] [address] PCP - General Family Medicine 08/17/19 [place] NAVDEEPA 02/16/25 04/18/25 documented as of this encounter
--- OUTSIDE RECORDS SUMMARY | 2025-08-17 21:46 | XMS_ITS | Encounter Summary ---
Author Organization [facility] [facility] Address [address] [place] [address] 7 [place] [address] Care Team Providers Care Chute Puller Name Role Phone Name, Tone SEPULVEDA Primary Care Provider [phone] Reason for Visit * Reason Comments Med Refill Encounter Details Date Type Department Care Team (Late st Contact Info) Description 03/17/[address] [phone] NameTone MD [address] [place] [address] [phone] Social History Tobacco Use Types Packs/Day Years [...] Description 08/19/2025 11:00 AM EST Office Visit [address] [phone] Tone Cool MD [address] [place] [address] [phone] 10/03/2025 3:15 PM EST Office Visit [facility] [address] [place] [address] Name, [place] [address] 11/04/2025 2:00 PM EST Telemedicine [address] [address] Tanya Ellison RN documented as of this encounter Visit Diagnoses Not on filedocumented in this encounter Additional Health Concerns Assessment Noted Time PHQ-9 Depression Total Score: 0 12/26/19 23 1:52 PM EDT documented as of this encounter Care Teams Chute Puller Relationship Specialty Start Date End Date Name, MD Tone [facility] [place] [address] PCP - General Family Medicine 08/17/19 Annie SETHIA 02/16/25 04/18/25 documented as of this encounter
--- OUTSIDE RECORDS SUMMARY | 2025-08-17 21:46 | XMS_ITS | Encounter Summary ---
Author Organization [employer] Address [address] [place] [address] 7t [place] [address] Care Team Providers Care Knot Bumper Name Role Phone Name, Tone SEPULVEDA Primary Care Provider [phone] Reason for Visit * Reason Comments Med Refill Encounter Details Date Type Department Care Team ([facility] st Contact Info) Description 04/18/2023 Refill [facility] [address] [place], [place] [phone] Name, MD Tone 230 [place] [address] Anxiety disorder, unspecified; Chronic low back pain, [...] EDT Duplicate. New refill request sent by SALVAGE DETERMINER nurse. * Telephone Encounter - Deisy King 04/18/2023 10:23 AM EDT Tc from patient requesting a med refill for medication oxycodone 15 mg. Please send to [facility] pharmacy. PCP Dr. Cool documented in this encounter Plan of Treatment Upcoming Encounters Date Type Department Care Team (Late st Contact Info) Description 08/19/2025 11:00 AM EST Office Visit [address] [address] Tone Cool MD [address] [place] [address] 10/03/2025 3:15 PM EST Office Visit [address] [address] Tone Cool MD [address] [place] [address] 11/04/2025 2:00 PM EST Telemedicine [address] [address] Tanya Ellison, SHUBHAM documented as of this encounter Visit Diagnoses Diagnosis Anxiety disorder, unspecified Chronic low back pain, unspecified back pain laterality, unspecified whether sciatica present documented in this encounter Additional Health Concerns Assessment Noted Time PHQ-9 Depression Total Score: 0 12/26/19 23 1:52 PM EDT documented as of this encounter Care Teams Knot Bumper Relationship Specialty Start Date End Date Tone Cool MD [address] [place] [address] PCP - General Family Medicine 08/17/19 Annie HERNANDEZ 02/16/25 04/18/25 documented as of this encounter
--- OUTSIDE RECORDS SUMMARY | 2025-08-17 21:46 | XMS_ITS | Encounter Summary ---
Author Organization [email or web address] Address [address] [facility] [address] 7t [place] [address] Care Team Providers Care Preschool Paraprofessional Name Role Phone Name, Tone SEPULVEDA Primary Care Provider [phone] Encounter Details Date Type Department Care Team ([facility] st Contact Info) Description 08/11/2024 Telephone [facility] [address] [place] [address] Name, MD Tone [address] [place] [address] Social History Tobacco Use Types Packs/Day Years [...] 08/19/2025 11:00 AM EST Office Visit [address] [address] NameTone MD [address] [place] [address] 10/03/2025 3:15 PM EST Office Visit [address] [address] NameTone MD [address] [place] [address] 11/04/2025 2:00 PM EST Telemedicine [address] [address] Tanya Ellison, SHUBHMA documented as of this encounter Visit Diagnoses Not on filedocumented in this encounter Additional Health Concerns Assessment Noted Time PHQ-9 Depression Total Score: 11 024 2:10 PM EDT documented as of this encounter Care Teams Preschool Paraprofessional Relationship Specialty Start Date End Date NameTone MD [address] [place] [address] PCP - General Family Medicine 08/17/19 Annie SETHIA 02/16/25 04/18/25 documented as of this encounter
--- OUTSIDE RECORDS SUMMARY | 2025-08-17 21:46 | XMS_ITS | Encounter Summary ---
Author Organization [employer] Address [address] [place] [address] 7 [place] [address] Care Team Providers Care Wet Finisher Name Role Phone Name, Tone SEPULVEDA Primary Care Provider [phone] Reason for Visit * Reason Onset Date Comments Referral 04/16/2023 Encounter Details Date Type Department Care Team ([facility] st Contact Info) Description 04/16/2023 Telephone [facility] 230 [place], [place] [phone] Name, MD Tone 230 [place] [address] Referral Social History Tobacco Use Types Packs/Day [...] a referral to a kidney specialist. Location: [address] [place] [address] Date: n/a Time: n/a Specialty: research computing specialist documented in this encounter Plan of Treatment Upcoming Encounters Date Type Department Care Team (Late st Contact Info) Description 08/19/2025 11:00 AM EST Office Visit [address] [address] NameTone MD [address] [place] [address] 10/03/2025 3:15 PM EST Office Visit [address] [address] Name, MD Tone [address] [place] [address] 11/04/2025 2:00 PM EST Telemedicine [address] [address] Tanya Ellison, RN documented as of this encounter Visit Diagnoses Not on filedocumented in this encounter Additional Health Concerns Assessment Noted Time PHQ-9 Depression Total Score: 0 12/26/19 23 1:52 PM EDT documented as of this encounter Care Teams Wet Finisher Relationship Specialty Start Date End Date Name, MD Tone [address] [place] [address] PCP - General Family Medicine 08/17/19 Annie SETHIA 02/16/25 04/18/25 documented as of this encounter
--- OUTSIDE RECORDS SUMMARY | 2025-08-17 21:46 | XMS_ITS | Encounter Summary ---
Author Organization [employer] [facility] Address [address] [place] [address] 7 [place] [address] Care Team Providers Care Financial Data Analyst Name Role Phone Name, Tone SEPULVEDA Primary Care Provider [phone] Reason for Visit * Reason Comments Med Refill Encounter Details Date Type Department Care Team (Late st Contact Info) Description 03/24/[address] [phone] NameTone MD [address] [place] [address] [phone] Social History Tobacco Use Types Packs/Day Years [...] Description 08/19/2025 11:00 AM EST Office Visit [address] [phone] Tone Cool MD [address] [place] [address] [phone] 10/03/2025 3:15 PM EST Office Visit [facility] [address] [place] [address] Name, [place] [address] 11/04/2025 2:00 PM EST Telemedicine [address] [address] Tanya Ellison RN documented as of this encounter Visit Diagnoses Not on filedocumented in this encounter Additional Health Concerns Assessment Noted Time PHQ-9 Depression Total Score: 0 12/26/19 23 1:52 PM EDT documented as of this encounter Care Teams Financial Data Analyst Relationship Specialty Start Date End Date Name, MD Tone [facility] [place] [address] PCP - General Family Medicine 08/17/19 Annie SETHIA 02/16/25 04/18/25 documented as of this encounter
--- OUTSIDE RECORDS SUMMARY | 2025-08-17 21:46 | XMS_ITS | Encounter Summary ---
Author Organization [employer] Address 75 [facility] 7t [place] [address] Care Team Providers Care Middle School Science Teacher Name Role Phone Name, Tone SEPULVEDA Primary Care Provider [phone] Reason for Visit * Reason Onset Date Comments Hospital Follow-up 05/28/2024 Encounter Details Date Type Department Care Team ([facility] st Contact Info) Description 05/28/[address] [facility] 230 [place] [address] Name, MD Tone 230 [place] [address] Hospital Follow-up Social History Tobacco Use Types [...] Tc from pt requesting HDF appt: Hospital: [facility] Date admitted: 05/18/24 Discharge Date: 05/28/24 Pressure Potassium low. documented in this encounter Plan of Treatment Upcoming Encounters Date Type Department Care Team (Late st Contact Info) Description 08/19/2025 11:00 AM EST Office Visit [facility] [address] [place] [address] NameTone MD [address] [place] [address] 10/03/2025 3:15 PM EST Office Visit [address] [address] NameTone MD [address] [place] [address] 11/04/2025 2:00 PM EST Telemedicine [address] [address] Tanya Ellison, SHUBHAM documented as of this encounter Visit Diagnoses Not on filedocumented in this encounter Additional Health Concerns Assessment Noted Time PHQ-9 Depression Total Score: 11 024 2:10 PM EDT documented as of this encounter Care Teams Middle School Science Teacher Relationship Specialty Start Date End Date Name, MD Tone 230 [place] [address] PCP - General Family Medicine 08/17/19 Annie HERNANDEZ 02/16/25 04/18/25 documented as of this encounter
--- OUTSIDE RECORDS SUMMARY | 2025-08-17 21:46 | XMS_ITS | Encounter Summary ---
Author Organization [employer] Address 75 [facility] 7t [place] [address] Care Team Providers Care Cash Grain Grower Name Role Phone Name, Tone SEPULVEDA Primary Care Provider [phone] Reason for Visit * Reason Comments Med Refill Encounter Details Date Type Department Care Team ([facility] st Contact Info) Description 06/23/2024 Refill [facility] 230 [place] [address] Name, MD Tone 230 [place], [place] [phone] Anxiety disorder, unspecified Social History Tobacco Use [...] Description 08/19/2025 11:00 AM EST Office Visit [address] [address] NameTone MD [address] [place] [address] 10/03/2025 3:15 PM EST Office Visit [address] [address] NameTone MD [address] [place] [address] 11/04/2025 2:00 PM EST Telemedicine [address] [address] Tanya Ellison, SHUBHAM documented as of this encounter Visit Diagnoses Diagnosis Anxiety disorder, unspecified documented in this encounter Additional Health Concerns Assessment Noted Time PHQ-9 Depression Total Score: 11 024 2:10 PM EDT documented as of this encounter Care Teams Cash Grain Grower Relationship Specialty Start Date End Date NameTone MD [address] [place] [address] PCP - General Family Medicine 08/17/19 Annie VNA 02/16/25 04/18/25 documented as of this encounter
--- OUTSIDE RECORDS SUMMARY | 2025-08-17 21:46 | XMS_ITS | Encounter Summary ---
Author Organization [employer] Address 75 [facility] 7t [place] [address] Care Team Providers Care Office Services Manager Name Role Phone Name, Tone SEPULVEDA Primary Care Provider [phone] Reason for Visit * Reason Comments Med Change Request Encounter Details Date Type Department Care Team ([facility] st Contact Info) Description 10/04/2024 Refill [facility] 230 [place] [address] Name, MD Tone 230 [place] [address] Social History Tobacco Use Types Packs/Day Years [...] Description 08/19/2025 11:00 AM EST Office Visit [address] [address] NameTone MD [address] [place] [address] 10/03/2025 3:15 PM EST Office Visit [address] [address] NameTone MD [address] [place] [address] 11/04/2025 2:00 PM EST Telemedicine [address] [address] Tanya Ellison, RN documented as of this encounter Visit Diagnoses Not on filedocumented in this encounter Additional Health Concerns Assessment Noted Time PHQ-9 Depression Total Score: 11 024 2:10 PM EDT documented as of this encounter Care Teams Office Services Manager Relationship Specialty Start Date End Date NameTone MD [address] [place] [address] PCP - General Family Medicine 08/17/19 Annie VNA 02/16/25 04/18/25 documented as of this encounter
--- OUTSIDE RECORDS SUMMARY | 2025-08-17 21:46 | XMS_ITS | Encounter Summary ---
Author Organization [employer] [facility] Address [address] [place] [address] 7 [place] [address] Care Team Providers Care Drafter Civil Name Role Phone Name, Tone SEPULVEDA Primary Care Provider Reason for Visit * Reason Comments Med Refill Encounter Details Date Type Department Care Team (Late Contact Info) Description 03/22/[address] [phone] NameTone MD [address] [place] [address] [phone] Wheezing Social History Tobacco Use Types Packs/Day [...] 08/19/2025 11:00 AM EST Office Visit [address] [phone] NameTone MD [address] [place] [address] [phone] 10/03/2025 3:15 PM EST Office Visit [facility] [address] [place] [address] Name, [place] [address] 11/04/2025 2:00 PM EST Telemedicine [facility] [address] [place] [address] Tanya Ellison RN documented as of this encounter Visit Diagnoses Diagnosis Wheezing documented in this encounter Additional Health Concerns Assessment Noted Time PHQ-9 Depression Total Score: 0 12/26/19 23 1:52 PM EDT documented as of this encounter Care Teams Drafter Civil Relationship Specialty Start Date End Date Name, [place] [address] PCP - General Family Medicine 08/17/19 Annie SETHIA 02/16/25 04/18/25 documented as of this encounter
--- OUTSIDE RECORDS SUMMARY | 2025-08-17 21:46 | XMS_ITS | Encounter Summary ---
Author Organization [employer] Address 75 [facility] 7t [place] [address] Care Team Providers Care Geotechnicial Properties Technician Name Role Phone Name, Tone SEPULVEDA Primary Care Provider [phone] Reason for Visit * Reason Comments Med Change Request Encounter Details Date Type Department Care Team ([facility] st Contact Info) Description 08/09/2024 Refill [facility] 230 [place] [address] Name, MD Tone [address] [place] [address] Social History Tobacco Use Types Packs/Day Years [...] Description 08/19/2025 11:00 AM EST Office Visit [address] [address] NameTone MD [address] [place] [address] 10/03/2025 3:15 PM EST Office Visit [address] [address] NameTone MD [address] [place] [address] 11/04/2025 2:00 PM EST Telemedicine [address] [address] Tanya Ellison, RN documented as of this encounter Visit Diagnoses Not on filedocumented in this encounter Additional Health Concerns Assessment Noted Time PHQ-9 Depression Total Score: 11 024 2:10 PM EDT documented as of this encounter Care Teams Geotechnicial Properties Technician Relationship Specialty Start Date End Date NameTone MD [address] [place] [address] PCP - General Family Medicine 08/17/19 Annie VNA 02/16/25 04/18/25 documented as of this encounter
--- OUTSIDE RECORDS SUMMARY | 2025-08-17 21:46 | XMS_ITS | Encounter Summary ---
Author Organization [employer] Address 75 [facility] 7t [place] [address] Care Team Providers Care Purse Seiner Name Role Phone Name, Tone SEPULVEDA Primary Care Provider [phone] Reason for Visit * Reason Comments Med Refill Encounter Details Date Type Department Care Team ([facility] st Contact Info) Description 03/26/2023 Refill [facility] MEDICINE 230 [place], [place] [phone] Name, MD Tone 230 [place] [address] Social History Tobacco Use Types Packs/Day Years [...] Score 14 03/28/2023 2:40 PM EDT Tanya Ellison, SHUBHAM documented as of this encounter Plan of Treatment Upcoming Encounters Date Type Department Care Team (Late st Contact Info) Description 08/19/2025 11:00 AM EST Office Visit [address] [address] Name, MD Tone [address] [place] [address] 10/03/2025 3:15 PM EST Office Visit [address] [address] Name, MD Tone [address] [place] [address] 11/04/2025 2:00 PM EST Telemedicine [address] [address] Tanya Ellison, SHUBHAM documented as of this encounter Visit Diagnoses Not on filedocumented in this encounter Additional Health Concerns Assessment Noted Time PHQ-9 Depression Total Score: 0 12/26/19 23 1:52 PM EDT documented as of this encounter Care Teams Purse Seiner Relationship Specialty Start Date End Date NameTone MD [address] [place] [address] PCP - General Family Medicine 08/17/19 Annie SETHIA 02/16/25 04/18/25 documented as of this encounter
--- OUTSIDE RECORDS SUMMARY | 2025-08-17 21:46 | XMS_ITS | Encounter Summary ---
Author Organization [employer] Address 75 [facility] 7t [place] [address] Care Team Providers Care Plastic Tile Layer Name Role Phone Name, Tone SEPULVEDA Primary Care Provider [phone] Reason for Visit * Reason Comments Med Change Request Encounter Details Date Type Department Care Team ([facility] st Contact Info) Description 06/09/[address] [facility] MEDICINE 230 [place] [address] Name, MD Tone 230 [place] [address] Social History Tobacco Use Types Packs/Day Years [...] Description 08/19/2025 11:00 AM EST Office Visit [address] [address] NameTone MD [address] [place] [address] 10/03/2025 3:15 PM EST Office Visit [address] [address] NameTone MD [address] [place] [address] 11/04/2025 2:00 PM EST Telemedicine [address] [address] Tanya Ellison, RN documented as of this encounter Visit Diagnoses Not on filedocumented in this encounter Additional Health Concerns Assessment Noted Time PHQ-9 Depression Total Score: 11 024 2:10 PM EDT documented as of this encounter Care Teams Plastic Tile Layer Relationship Specialty Start Date End Date NameTone MD [address] [place] [address] PCP - General Family Medicine 08/17/19 Annie VNA 02/16/25 04/18/25 documented as of this encounter
--- OUTSIDE RECORDS SUMMARY | 2025-08-17 21:46 | XMS_ITS | Encounter Summary ---
Author Organization [employer] Address 75 [facility] 7 [place] [address] Care Team Providers Care Marine Cargo Specialist Name Role Phone Name, Tone SEPULVEDA Primary Care Provider [phone] Reason for Visit * Reason Onset Date Comments Nurse Triage 04/10/2023 Encounter Details Date Type Department Care Team ([facility] st Contact Info) Description 04/10/2023 Telephone [facility] MEDICINE 230 [place], [place] [phone] Name, MD Tone 230 [place] [address] Nurse Triage Social History Tobacco Use Types [...] eating small meals and that she ordered Pakistani food yesterday and only ate some of [...] previous orders. Follow with patient as needed. [facility] In [facility] hours and availability reviewed [...] Description 08/19/2025 11:00 AM EST Office Visit [address] [address] NameTone MD [address] [place] [address] 10/03/2025 3:15 PM EST Office Visit [address] [address] NameTone MD [address] [place] [address] 11/04/2025 2:00 PM EST Telemedicine [address] [address] Tanya Ellison RN documented as of this encounter Visit Diagnoses Not on filedocumented in this encounter Additional Health Concerns Assessment Noted Time PHQ-9 Depression Total Score: 0 12/26/19 23 1:52 PM EDT documented as of this encounter Care Teams Marine Cargo Specialist Relationship Specialty Start Date End Date NameTone MD [address] [place] [address] PCP - General Family Medicine 08/17/19 Annie HERNANDEZ 02/16/25 04/18/25 documented as of this encounter
--- OUTSIDE RECORDS SUMMARY | 2025-08-17 21:46 | XMS_ITS | Encounter Summary ---
Author Organization [employer] Address 75 [facility] 7t [place] [address] Care Team Providers Care Pond Sawyer Name Role Phone Name, Tone SEPULVEDA Primary Care Provider Reason for Visit * Reason Onset Date Comments Hospital Follow-up 06/10/2023 Encounter Details Date Type Department Care Team ([facility] st Contact Info) Description 06/10/2023 Telephone [facility] MEDICINE 230 [place], [place] [phone] Name, MD Tone 230 [place] [address] Hospital Follow-up Social History Tobacco Use Types [...] HDF follow up appointment. Patient hospitalized at [facility] 06/02/23 and discharged on 06/09/23. Patient advised will forward to triage nurse for follow up and appointment scheduling. documented in this encounter Plan of Treatment Upcoming Encounters Date Type Department Care Team (Late st Contact Info) Description 08/19/2025 11:00 AM EST Office Visit [address] [place] [address] [place] [address] 10/03/2025 3:15 PM EST Office Visit [address] [address] Name, [place] [address] 11/04/2025 2:00 PM EST Telemedicine [address] [place] [address] Tanya Ellison, RN documented as of this encounter Visit Diagnoses Not on filedocumented in this encounter Additional Health Concerns Assessment Noted Time PHQ-9 Depression Total Score: 0 12/26/19 23 1:52 PM EDT documented as of this encounter Care Teams Pond Sawyer Relationship Specialty Start Date End Date Name, [place] [address] PCP - General Family Medicine 08/17/19 Annie VNA 02/16/25 04/18/25 documented as of this encounter
--- OUTSIDE RECORDS SUMMARY | 2025-08-17 21:46 | XMS_ITS | Encounter Summary ---
Author Organization [employer] Address 75 [facility] 7t [place] [address] Care Team Providers Care Airframe Design Engineer Name Role Phone Name, Tone SEPULVEDA Primary Care Provider [phone] Reason for Visit * Reason Comments Med Refill Encounter Details Date Type Department Care Team ([facility] st Contact Info) Description 07/21/[address] [facility] MEDICINE 230 [place] [address] Name, MD Tone 230 [place], [place] [phone] Chronic back pain, unspecified back location, unspecified [...] 08/19/2025 11:00 AM EST Office Visit [address] [address] NameTone MD [address] [place] [address] 10/03/2025 3:15 PM EST Office Visit [address] [address] Name, MD Tone [address] [place] [address] 11/04/2025 2:00 PM EST Telemedicine [address] [address] Tanya Ellison, SHUBHAM documented as of this encounter Visit Diagnoses Diagnosis Chronic back pain, unspecified back location, unspecified back pain laterality documented in this encounter Additional Health Concerns Assessment Noted Time PHQ-9 Depression Total Score: 11 024 2:10 PM EDT documented as of this encounter Care Teams Airframe Design Engineer Relationship Specialty Start Date End Date Name, MD Tone [address] [place] [address] PCP - General Family Medicine 08/17/19 Annie SETHIA 02/16/25 04/18/25 documented as of this encounter
--- OUTSIDE RECORDS SUMMARY | 2025-08-17 21:46 | XMS_ITS | Encounter Summary ---
Author Organization [employer] Address 75 [facility] 7t [place] [address] Care Team Providers Care Post Hole Digger Name Role Phone Name, Tone SEPULVEDA Primary Care Provider [phone] Reason for Visit * Reason Onset Date Comments Medication Question 05/11/2024 Encounter Details Date Type Department Care Team ([facility] st Contact Info) Description 05/11/2024 Telephone [facility] MEDICINE 230 [place] [address] Name, MD Tone 230 [place] [address] Medication Question Social History Tobacco Use Types [...] lancets, No answer. LVM to callback on [phone]. * Telephone Encounter - Vicky Hoskins - 05/11/2024 10:26 AM EDT Tc from pt requesting free style lancets . Did not see on recent med list. documented in this encounter Plan of Treatment Upcoming Encounters Date Type Department Care Team (Late st Contact Info) Description 08/19/2025 11:00 AM EST Office Visit [facility] MEDICINE [address] [place] [address] Name, MD Tone [address] [place] [address] 10/03/2025 3:15 PM EST Office Visit [address] [address] Name, MD Tone [address] [place] [address] 11/04/2025 2:00 PM EST Telemedicine [address] [address] Tanya Ellison, RN documented as of this encounter Visit Diagnoses Not on filedocumented in this encounter Additional Health Concerns Assessment Noted Time PHQ-9 Depression Total Score: 11 024 2:10 PM EDT documented as of this encounter Care Teams Post Hole Digger Relationship Specialty Start Date End Date Name, MD Tone 230 [place] [address] PCP - General Family Medicine 08/17/19 Annie SETHIA 02/16/25 04/18/25 documented as of this encounter
--- OUTSIDE RECORDS SUMMARY | 2025-08-17 21:46 | XMS_ITS | Encounter Summary ---
Author Organization [employer] Address 75 [facility] 7t [place] [address] Care Team Providers Care Mattress Maker Name Role Phone Name, Tone SEPULVEDA Primary Care Provider [phone] Reason for Visit * Reason Comments Med Refill Encounter Details Date Type Department Care Team ([facility] st Contact Info) Description 05/22/2023 Refill [facility] MEDICINE 230 [place], [place] [phone] Name, MD Tone 230 [place] [address] Nausea Social History Tobacco Use Types Packs/Day [...] 08/19/2025 11:00 AM EST Office Visit [address] [address] NameTone MD [address] [place] [address] 10/03/2025 3:15 PM EST Office Visit [address] [address] NameTone MD [address] [place] [address] 11/04/2025 2:00 PM EST Telemedicine [address] [address] Tanya Ellison, RN documented as of this encounter Visit Diagnoses Diagnosis Nausea Nausea alone documented in this encounter Additional Health Concerns Assessment Noted Time PHQ-9 Depression Total Score: 0 12/26/19 23 1:52 PM EDT documented as of this encounter Care Teams Mattress Maker Relationship Specialty Start Date End Date NameTone MD [address] [place] [address] PCP - General Family Medicine 08/17/19 Annie VNA 02/16/25 04/18/25 documented as of this encounter
--- OUTSIDE RECORDS SUMMARY | 2025-08-17 21:47 | XMS_ITS | Encounter Summary ---
Author Organization [employer] Address 75 [facility] 7t [place] [address] Care Team Providers Care Tv Production Assistant Name Role Phone Name, Tone SEPULVEDA Primary Care Provider Encounter Details Date Type Department Care Team (Late st Contact Info) Description 12/16/2024 Orders Only [facility] 230 [place] [address] Provider, MD Evangelist Social History Tobacco Use [...] Description 08/19/2025 11:00 AM EST Office Visit [address] [address] Name, MD Tone [address] [place] [address] 10/03/2025 3:15 PM EST Office Visit [address] [address] Name, MD Tone [address] [place] [address] 11/04/2025 2:00 PM EST Telemedicine [address] [address] Tanya Ellison RN documented as of this [...] documented as of this encounter Care Teams Tv Production Assistant Relationship Specialty Start Date End Date Name, MD Tone [address] [place] [address] PCP - General Family Medicine 08/17/19 Annie HERNANDEZ 02/16/25 04/18/25 documented as of this encounter
--- OUTSIDE RECORDS SUMMARY | 2025-08-17 21:47 | XMS_ITS | Encounter Summary ---
Author Organization [employer] Address 75 [facility] 7t [place] [address] Care Team Providers Care Ball Truing Machine Operator Name Role Phone Name, Tone SEPULVEDA Primary Care Provider [phone] Encounter Details Date Type Department Care Team ([facility] st Contact Info) Description 07/11/2025 Orders Only [facility] 230 [place] [address] ProviderEvangelist MD Social History Tobacco Use Types [...] Description 08/19/2025 11:00 AM EST Office Visit [facility] MEDICINE [address] [place] [address] NameTone MD [address] [place] [address] 10/03/2025 3:15 PM EST Office Visit [facility] [address] [place] [address] NameTone MD [address] [place] [address] 11/04/2025 2:00 PM EST Telemedicine [facility]INE 230 [place] [address] Tanya Ellison, RN documented as of this encounter Procedures Procedure Name Priority Date/Time Associated Diagnosis Comments CT CHEST W CONTRAST Routine 07/05/2025 7:13 AM EDT documented in this encounter Results * CT Chest w/ Contrast (07/05/2025 7:13 AM EDT) Anatomical Region Laterality Modality Body, Chest Computed Tomogra phy us Historical Provider MD LANCE CT PROCEDURES Final R esult documented in this encounter Visit Diagnoses Not on filedocumented in this encounter Additional Health Concerns Assessment Noted Time PHQ-9 Depression Total Score: 14 025 1:40 PM EDT documented as of this encounter Care Teams Ball Truing Machine Operator Relationship Specialty Start Date End Date Name, MD Tone 230 [place] [address] PCP - General Family Medicine 08/17/19 documented as of this encounter
--- OUTSIDE RECORDS SUMMARY | 2025-08-17 21:47 | XMS_ITS | Encounter Summary ---
Author Organization [employer] Address 75 [facility] 7t [place] [address] Care Team Providers Care Joint Sealer Name Role Phone Name, Tone SEPULVEDA Primary Care Provider [phone] Reason for Visit * Reason Comments Med Refill Encounter Details Date Type Department Care Team ([facility] st Contact Info) Description 08/16/2025 Refill [facility] MEDICINE 230 [place], [place] [phone] Name, MD Tone 230 [place] [address] Chronic back pain, unspecified back location, unspecified back pain laterality; Fibromyositis; Anxiety disorder, unspecified; Chronic low back pain, unspecified back pain laterality, unspecified whether sciatica present; Wheezing Social History Tobacco Use Types Packs/Day [...] Description 08/19/2025 11:00 AM EST Office Visit [facility] MEDICINE [address] [place] [address] Name, MD [facility] [place] [address] 10/03/2025 3:15 PM EST Office Visit [facility] MEDICINE [address] [place], [place] [address] [place] [address] Name, [place] [address] 11/04/2025 2:00 PM EST Telemedicine [address] [address] Tanya Ellison, SHUBHAM documented as of this encounter Visit Diagnoses Diagnosis Chronic back pain, unspecified back location, unspecified back pain laterality Fibromyositis Unspecified myalgia and myositis Anxiety disorder, unspecified Chronic low back pain, unspecified back pain laterality, unspecified whether sciatica present Wheezing documented in this encounter Additional Health Concerns Assessment Noted Time PHQ-9 Depression Total Score: 14 025 1:40 PM EDT documented as of this encounter Care Teams Joint Sealer Relationship Specialty Start Date End Date Name, MD Tone [address] [place] [address] PCP - General Family Medicine 08/17/19 documented as of this encounter
--- OUTSIDE RECORDS SUMMARY | 2025-08-17 21:47 | XMS_ITS | Clinical Summary ---
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 90 tablet 3 12/17/2024 Active Active Problems Problem Noted Date Diagnosed [...] branch. NM myocardial perfusion stress mibi 05/25/24: [facility] 1. Functional Capacity: 3.9 METS 2. [...] her age and gender. Cardiac cath 05/26/24: [facility] Access: left radial artery, right internal [...] as this was seen on outside cath. Social History Tobacco Use Types Packs/Day Years [...] 12/17/2024 4:35 PM EDT Plan of Treatment Upcoming Encounters Date Type Department Care Team (Late st Contact Info) Description 12/16/2025 3:00 PM EDT Appointment [facility] [address] [place] [address] Kobe John MD [address] [place] [address] Health Maintenance Due Date Last Done Comments Chlamydia and Gonorrhea Screening 1960 HIV Screening 1960 MMR Vaccines (1 of 1 - Standard series) 12/08/1959 Anemia Screening 1970 Varicella Vaccines (1 of 2 - 13+ 2-dose series) 12/08/1971 Hepatitis C Screening 1976 DTaP/Tdap/Td Vaccines (2 - Td or Tdap) 08/03/2024 07/06/2024 Influenza Vaccine (#1) 2025 , 10/06/2023, 06/28/2022, Additional history exists HIB Vaccines Aged Out No longer eligi ble based on patient's age to complete this topic HPV Vaccines (No Doses Required) Completed Hepatitis A Vaccines Aged Out No long [...] patient's age to complete this topic Insurance A[employer]NA MEDICARE AETNA MEDICARE [place] [id number] Care Teams Urologist Md Relationship Specialty Start Date End Date [facility] [address] [place] [address] PCP - General 12/17/24
--- OUTSIDE RECORDS SUMMARY | 2025-08-17 21:47 | XMS_ITS | Encounter Summary ---
Author Organization [facility] Address [address] [place] [address] Phone Care Team Providers Care Salad Bar Clerk Name Role Phone AlcidesKiara dang Primary Care Provider [facility] Primary Care Provider [phone] Reason for Visit * Reason Comments Med Refill Encounter Details Date Type Department Care Team (Late st Contact Info) Description 06/04/2024 Refill [facility] [address] [place] [address] Kobe John MD [address] [place] [address] Social History Tobacco Use Types Packs/Day Years [...] - 06/04/2024 3:00 PM EDT Copied from [facility] #[id number]. Topic: Access To Service >> Jun 04, 2024 2:57 PM Nida Santiago wrote: Patient called front clerk stating that she is completely out of her Cyclobenzaprine (Flexeril) medication and is in a lot of pain. Best number to reach her is [phone] documented in this encounter Plan of Treatment Upcoming Encounters Date Type Department Care Team (Late st Contact Info) Description 12/16/2025 3:00 PM EDT Appointment [facility] [address] [place] [address] [place] [address] Kobe John MD [address] [place] [address] documented as of this encounter Visit Diagnoses Not on filedocumented in this encounter Care Teams Salad Bar Clerk Relationship Specialty Start Date End Date Kiara Mcgrath PCP - General 05/06/24 12/16/24 [facility] [address] [place] [address] PCP - General 12/17/24 documented as of this encounter
--- OUTSIDE RECORDS SUMMARY | 2025-08-17 21:47 | XMS_ITS | Encounter Summary ---
Author Organization [facility] Address [address] [place] [address] Care Team Providers Care Electric Meter Installer Helper Name Role Phone Name, Tone SEPULVEDA Primary Care Provider [phone] Encounter Details Date Type Department Care Team (Late st Contact Info) Description 08/16/2025 Results Follow-Up [facility] Emergency [address] [place] [address] Rosey Levin RN Social History Tobacco Use Types Packs/Day Years [...] on file documented as of this encounter Functional Status * Are you [...] 10:25 PM EDT Katelynn Neves RN documented as of this encounter Mental Status * Because of a physical, mental, or emotional condition, do you have serious difficulty concentrating, remembering, or making decisions? (5 years old or older) Answer Entry Date Author No 03/03/2025 10:25 PM EDT Katelynn Neves RN documented in this encounter Progress Notes * Rosey Levin RN - 08/16/2025 12:19 PM EST Per rhiannon Wall no further treatment needed documented in this encounter Plan of Treatment Upcoming Encounters Date Type Department Care Team (Late st Contact Info) Description 11/29/2025 2:00 PM EDT Consult [facility] - [place] [address] [facility] [address] [place] [phone] Guerita Marrero MD [address] [place] [address] 12/26/2025 2:45 PM EDT Office Visit Pulmonology - [place] [address] [facility] [address] [place] [phone] Sean Heart MD [address] [place] [address] documented as of this encounter Visit Diagnoses Not on filedocumented in this encounter Care Teams Electric Meter Installer Helper Relationship Specialty Start Date End Date Name, MD Tone [address] [place] [address] PCP - General Internal Medicine 06/19/25 documented as of this encounter
--- OUTSIDE RECORDS SUMMARY | 2025-08-17 21:47 | XMS_ITS | Encounter Summary ---
Author Organization [employer] Address [address] [facility] 7t [place] [address] Care Team Providers Care Time Stamp Assembler Name Role Phone Name, Tone SEPULVEDA Primary Care Provider [phone] Reason for Visit * Reason Onset Date Comments Nurse Triage 08/15/2025 Encounter Details Date Type Department Care Team ([facility] st Contact Info) Description 08/15/2025 Telephone [facility] MED[facility]INE [address] [place], [place] [phone] Name, MD Tone 230 [place] [address] Nurse Triage Social History Tobacco Use Types [...] encounter Miscellaneous Notes * Telephone Encounter - Christy Aguilar RN - 08/15/2025 12:53 PM EST Called pt regarding ER follow up, spoke to pt. Pt states has been seen in [facility] ER and by the [facility] at home for persistent watery diarrhea, abdominal pain/cramping, and intermittent fevers. Pt denies current fever, severe pain, vomiting, or other associated symptoms. Pt given ER follow up appointment on Friday with PCP at 11:00 for exam and follow up. Advised home care: rest, fluids, softbland diet, continue with anti diarrheal, and call back as needed. Pt understands and agrees with plan. * Telephone Encounter - Tone Potter - 08/15/2025 12:01 PM EST Patient calling to report ED visit on : Date: 08/13 Hospital: [facility] Seen for: Diarrhea, abdominal pain Symptomatic Yes *if yes message should go to Triage Patient advised will forward to team nurse for follow up Symptoms: Diarrhea, Abdominal Pain - Female - Not Outcome: Talk to a nurse or provider within 15 minutes Reason: Severe pain now The caller accepted this outcome. documented in this encounter Plan of Treatment Upcoming Encounters Date Type Department Care Team (Late st Contact Info) Description 08/19/2025 11:00 AM EST Office Visit [address] [address] Tone Cool MD [address] [place] [address] 10/03/2025 3:15 PM EST Office Visit [address] [address] Tone Cool MD [address] [place] [address] 11/04/2025 2:00 PM EST Telemedicine [address] [address] Tanya Ellison RN documented as of this encounter Visit Diagnoses Not on filedocumented in this encounter Additional Health Concerns Assessment Noted Time PHQ-9 Depression Total Score: 14 025 1:40 PM EDT documented as of this encounter Care Teams Time Stamp Assembler Relationship Specialty Start Date End Date Tone Cool MD [address] [place] [address] PCP - General Family Medicine 08/17/19 documented as of this encounter
--- OUTSIDE RECORDS SUMMARY | 2025-08-17 21:47 | XMS_ITS | Encounter Summary ---
Author Organization [employer] Address 75 [facility] 7t [place] [address] Care Team Providers Care Pipe Bender Name Role Phone Name, Tone SEPULVEDA Primary Care Provider [phone] Reason for Visit * Reason Onset Date Comments Durable Medical Equipment 08/15/2025 Encounter Details Date Type Department Care Team ([facility] st Contact Info) Description 08/15/2025 Telephone [facility] MEDICINE 230 [place], [place] [phone] Name, MD Tone 230 [place] [address] Durable Medical Equipment Social History Tobacco Use Types Packs/Day Years [...] Miscellaneous Notes * Telephone Encounter - Tone Potter - 08/15/2025 11:59 AM EST Tc from pt requesting DME for oxygen portable converter, [facility] and one for her house. Any questions contact pt at [phone] documented in this encounter Plan of Treatment Upcoming Encounters Date Type Department Care Team (Late st Contact Info) Description 08/19/2025 11:00 AM EST Office Visit [address] [address] NameTone MD [address] [place] [address] 10/03/2025 3:15 PM EST Office Visit [address] [address] Name, MD Tone [address] [place] [address] 11/04/2025 2:00 PM EST Telemedicine [address] [address] Tanya Ellison, RN documented as of this encounter Visit Diagnoses Not on filedocumented in this encounter Additional Health Concerns Assessment Noted Time PHQ-9 Depression Total Score: 14 025 1:40 PM EDT documented as of this encounter Care Teams Pipe Bender Relationship Specialty Start Date End Date Name, MD Tone [address] [place] [address] PCP - General Family Medicine 08/17/19 documented as of this encounter
--- OUTSIDE RECORDS SUMMARY | 2025-08-17 21:47 | XMS_ITS | Encounter Summary ---
Author Organization [employer] Address 75 [facility] 7t [place] [address] Care Team Providers Care Sales Donor Recruitment Representative Name Role Phone Name, Tone SEPULVEDA Primary Care Provider [phone] Reason for Visit * Reason Comments Med Refill Encounter Details Date Type Department Care Team ([facility] st Contact Info) Description 07/19/2025 Refill [facility] MEDICINE 230 [place], [place] [phone] Eloisa Magaña MD 230 [place] [address] Chronic low back pain, unspecified back pain laterality, unspecified whether sciatica present; Anxiety disorder, unspecified Social History Tobacco Use [...] 08/19/2025 11:00 AM EST Office Visit [facility] MEDICINE [address] [place] [address] Name, MD Tone [address] [place] [address] 10/03/2025 3:15 PM EST Office Visit [address] [address] Name, MD Tone [address] [place] [address] 11/04/2025 2:00 PM EST Telemedicine [address] [address] Tanya Ellison, SHUBHAM documented as of this encounter Visit Diagnoses Diagnosis Chronic low back pain, unspecified back pain laterality, unspecified whether sciatica present Anxiety disorder, unspecified documented in this encounter Additional Health Concerns Assessment Noted Time PHQ-9 Depression Total Score: 14 025 1:40 PM EDT documented as of this encounter Care Teams Sales Donor Recruitment Representative Relationship Specialty Start Date End Date Name, MD Tone [address] [place] [address] PCP - General Family Medicine 08/17/19 documented as of this encounter
--- OUTSIDE RECORDS SUMMARY | 2025-08-17 21:47 | XMS_ITS | Encounter Summary ---
Author Organization [employer] Address 75 [facility] 7t [place] [address] Care Team Providers Care Media Relations Specialist Name Role Phone Name, Tone SEPULVEDA Primary Care Provider [phone] Reason for Visit * Reason Onset Date Comments Med Refill 08/15/2025 Encounter Details Date Type Department Care Team (Late st Contact Info) Description 08/15/2025 Refill [facility] MEDICINE 230 [place], [place] [phone] Name, MD Tone 230 [place] [address] Chronic back pain, unspecified back location, unspecified back pain laterality; Fibromyositis Social History Tobacco Use Types Packs/Day Years [...] encounter Miscellaneous Notes * Telephone Encounter - Lyudmila Alva LPN - 08/15/2025 12:00 PM EST Syrup Mixer Assistant checked 08.15.25 and last visit 04/25/25 * Telephone Encounter - Tone Potter - 08/15/2025 11:56 AM EST TC from pt requesting medication refill. Medications needing refill : pregabalin (Lyrica) 300 MG capsule To be sent to: [facility]/pharmacy #[id number] [facility] [phone] [place] [address] documented in this encounter Plan of Treatment Upcoming Encounters Date Type Department Care Team (Late st Contact Info) Description 08/19/2025 11:00 AM EST Office Visit [address] [address] NameTone MD [address] [place] [address] 10/03/2025 3:15 PM EST Office Visit [address] [address] Name, MD Tone [address] [place] [address] 11/04/2025 2:00 PM EST Telemedicine [address] [address] Tanya Ellison, RN documented as of this encounter Visit Diagnoses Diagnosis Chronic back pain, unspecified back location, unspecified back pain laterality Fibromyositis Unspecified myalgia and myositis documented in this encounter Additional Health Concerns Assessment Noted Time PHQ-9 Depression Total Score: 14 025 1:40 PM EDT documented as of this encounter Care Teams Media Relations Specialist Relationship Specialty Start Date End Date Tone Cool MD [address] [place] [address] PCP - General Family Medicine 08/17/19 documented as of this encounter
--- OUTSIDE RECORDS SUMMARY | 2025-08-17 21:47 | XMS_ITS | Encounter Summary ---
Author Organization [employer] Address 75 [facility] 7t [place] [address] Care Team Providers Care Sweet Dough Mixer Name Role Phone NameTone MD Primary Care Provider [phone] Reason for Visit * Reason Onset Date Comments triage 08/20/2022 requesting 08/20/2022 Encounter Details Date Type Department Care Team ([facility] st Contact Info) Description 08/20/2022 Telephone [facility] MEDICINE 230 [place], [place] [phone] NameTone MD 230 [place] [address] triage; requesting Social History Tobacco Use Types [...] an electric scooter Please contact pt at [phone] * Telephone Encounter - Saeid Evens - [...] 08/19/2025 11:00 AM EST Office Visit [address] [address] NameTone MD [address] [place] [address] 10/03/2025 3:15 PM EST Office Visit [address] [address] Tone Cool MD [address] [place] [address] 11/04/2025 2:00 PM EST Telemedicine [address] [address] Tanya Ellison, SHUBHAM documented as of this encounter Visit Diagnoses Not on filedocumented in this encounter Care Teams Sweet Dough Mixer Relationship Specialty Start Date End Date Tone Cool MD [address] [place] [address] PCP - General Family Medicine 08/17/19 [facility] 02/16/25 04/18/25 documented as of this encounter
--- OUTSIDE RECORDS SUMMARY | 2025-08-17 21:47 | XMS_ITS | Encounter Summary ---
Author Organization [employer] Address 75 [facility] 7t [place] [address] Care Team Providers Care Lawnmower Mechanic Name Role Phone Name, Tone SEPULVEDA Primary Care Provider [phone] Encounter Details Date Type Department Care Team ([facility] st Contact Info) Description 08/15/2025 Orders Only [facility] 230 [place] [address] ProviderEvangelist MD Social History Tobacco Use Types [...] Office Visit [facility] MEDICINE [address] [place] [address] NameTone MD [address] [place] [address] 10/03/2025 3:15 PM EST Office Visit [facility] MED[facility]INE [address] [place] [address] NameTone MD [address] [place] [address] 11/04/2025 2:00 PM EST Telemedicine [facility] MEDICINE 230 [place] [address] Tanya Ellison, RN documented as of this encounter Procedures Procedure Name Priority Date/Time Associated Diagnosis Comments CT ABDOMEN PELVIS W CONTRAST Routine 08/14/2025 documented in this encounter Results * CT Abdomen Pelvis w/ Contrast (08/14/2025) Anatomical Region Laterality Modality Body, Pelvis, Abdomen Computed T omography us Historical Provider MD LANCE CT PROCEDURES Final R esult documented in this encounter Visit Diagnoses Not on filedocumented in this encounter Additional Health Concerns Assessment Noted Time PHQ-9 Depression Total Score: 14 12/31/ 025 1:40 PM EDT documented as of this encounter Care Teams Lawnmower Mechanic Relationship Specialty Start Date End Date Name, MD Tone 230 [place] [address] PCP - General Family Medicine 08/17/19 documented as of this encounter
--- OUTSIDE RECORDS SUMMARY | 2025-08-17 21:47 | XMS_ITS | Encounter Summary ---
Author Organization [employer] Address 75 [facility] 7t [place] [address] Care Team Providers Care Fluid Designer Name Role Phone Name, Tone SEPULVEDA Primary Care Provider [phone] Reason for Visit * Reason Onset Date Comments Nurse Triage 06/22/2025 Encounter Details Date Type Department Care Team ([facility] st Contact Info) Description 06/22/2025 Telephone [facility] MEDICINE 230 [place], [place] [phone] Name, MD Tone [address] [place] [address] Nurse Triage Social History Tobacco Use Types [...] encounter Miscellaneous Notes * Telephone Encounter - Zamzam Ma RN - 06/22/2025 5:25 PM EDT Patient reports an ED visit on 06/19/25 at [facility] Dx was PNE of left lung pt states that she picked upher Rx azithromycin and has been taking it with little effect.Patient is speaking in clear sentences no respiratory distress heard during call. Pt states she feels weaker, she is only eating once a day, drinking a lot of fluids and voiding normal amount, she has oxygen at home and a pulse ox which she states she will continue to monitor because she does not want to go to the ED tonight doesn't have transportation to the clinic. Offered pt an uber states she will come in tomorrow she will can schedule a ride her and she was pre-booked. 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 will monitor oxygen levels and go to ED if O2 drops or she experiences increased shortness of breath Protocol Used: Pneumonia Follow-up Call (Adult) Protocol-Based Disposition: See in Office or Video Visit Today Video visit offer not recorded Positive Triage Question: * Taking antibiotic > 48 hours (2 days) for pneumonia and breathing not improved * All higher-acuity triage questions were negative Care Advice Discussed: * Continue Antibiotic * Drink Plenty of Liquids * Reasons To Call Back - Breathing becomes more difficult, or gets worse * Telephone Encounter - Ray Dominqiue - 06/22/2025 4:21 PM EDT Patient calling to report ED visit on : Date: 06/19/25 Hospital: [facility] Seen for: Pneumonia Symptomatic Yes *if yes message should go to Triage Pt reports having chest pain documented in this encounter Plan of Treatment Upcoming Encounters Date Type Department Care Team (Late st Contact Info) Description 08/19/2025 11:00 AM EST Office Visit [facility] [address] [place] [address] Name, MD Tone [address] [place] [address] 10/03/2025 3:15 PM EST Office Visit [facility] [address] [place] [address] Name, MD Tone [address] [place] [address] 11/04/2025 2:00 PM EST Telemedicine [facility] MEDICINE 230 [place] [address] Tanya Ellison, RN documented as of this encounter Visit Diagnoses Not on filedocumented in this encounter Additional Health Concerns Assessment Noted Time PHQ-9 Depression Total Score: 14 025 1:40 PM EDT documented as of this encounter Care Teams Fluid Designer Relationship Specialty Start Date End Date Name, MD Tone 230 [place] [address] PCP - General Family Medicine 08/17/19 documented as of this encounter
--- OUTSIDE RECORDS SUMMARY | 2025-08-17 21:48 | XMS_ITS | Encounter Summary ---
Author Organization [employer] Address 75 [facility] 7t [place] [address] Care Team Providers Care Peat Shredder Tender Name Role Phone Name, Tone SEPULVEDA Primary Care Provider [phone] Reason for Visit * Reason Onset Date Comments Med Refill 06/08/2025 Encounter Details Date Type Department Care Team ([facility] st Contact Info) Description 06/08/2025 Telephone [facility] MEDICINE 230 [place], [place] [phone] Name, MD Tone 230 [place] [address] Med Refill Social History Tobacco Use Types [...] Telephone Encounter - Viola Gamino LPN - 06/08/2025 3:18 PM EDT Medication pended to PCP. * Telephone Encounter - Tone Potter - 06/08/2025 3:07 PM EDT TC from pt requesting medication refill. Medications needing refill : lidocaine (Lidoderm) 5 % patch [[id number]] To be sent to: [facility] - [place], [place] - [facility] documented in this encounter Plan of Treatment Upcoming Encounters Date Type Department Care Team (Late st Contact Info) Description 08/19/2025 11:00 AM EST Office Visit [facility] [place] [address] Name, [place] [address] 10/03/2025 3:15 PM EST Office Visit [address] [address] Name, [place] [address] 11/04/2025 2:00 PM EST Telemedicine [address] [address] Tanya Ellison RN documented as of this encounter Visit Diagnoses Not on filedocumented in this encounter Additional Health Concerns Assessment Noted Time PHQ-9 Depression Total Score: 14 025 1:40 PM EDT documented as of this encounter Care Teams Peat Shredder Tender Relationship Specialty Start Date End Date Name, MD Tone [address] [place] [address] PCP - General Family Medicine 08/17/19 documented as of this encounter
--- OUTSIDE RECORDS SUMMARY | 2025-08-17 21:48 | XMS_ITS | Encounter Summary ---
Author Organization [employer] Address 75 [facility] 7t [place] [address] Care Team Providers Care Research Professor Of Biostatistics Name Role Phone Name, Tone SEPULVEDA Primary Care Provider [phone] Reason for Visit * Reason Onset Date Comments Med Refill 06/08/2025 Encounter Details Date Type Department Care Team ([facility] st Contact Info) Description 06/08/2025 Telephone [facility] MEDICINE 230 [place], [place] [phone] Name, MD Tone 230 [place] [address] Med Refill Social History Tobacco Use Types [...] Encounter - Viola Gamino LPN - 06/08/2025 3:09 PM EDT Medication was discontinued in 2022. * Telephone Encounter - Tone Potter - 06/08/2025 3:04 PM EDT TC from pt requesting medication refill. Medications needing refill : cycloSPORINE (Restasis) 0.05 % ophthalmic emulsion [[id number]] DISCONTINUED To be sent to: [facility] - [place], [place] - [address] [place] [address] documented in this encounter Plan of Treatment Upcoming Encounters Date Type Department Care Team (Late st Contact Info) Description 08/19/2025 11:00 AM EST Office Visit [facility] MEDICINE [address] [place] [address] Name, [place] [address] 10/03/2025 3:15 PM EST Office Visit [address] [address] Name, MD Tone [address] [place] [address] 11/04/2025 2:00 PM EST Telemedicine [address] [address] Tanya Ellison RN documented as of this encounter Visit Diagnoses Not on filedocumented in this encounter Additional Health Concerns Assessment Noted Time PHQ-9 Depression Total Score: 14 025 1:40 PM EDT documented as of this encounter Care Teams Research Professor Of Biostatistics Relationship Specialty Start Date End Date Name, MD Tone [address] [place] [address] PCP - General Family Medicine 08/17/19 documented as of this encounter
== END 2025-08-17 14:01 | disposition home or self-care (01) ==
LOC: HO.MAMMO 14:00
PROVIDERS: PCP Internal Medicine Geriatric Medicine; Visit Provider Internal Medicine Geriatric Medicine
DX: S22.000A Wedge compression fracture of unspecified thoracic vertebra, initial encounter for closed fracture (principal); M81.8 Other osteoporosis without current pathological fracture; Z79.52 Long term (current) use of systemic steroids
CPT/HCPCS: 77080

== ENCOUNTER → 2025-08-17 14:03 | Outpatient (BNV) | payer OTHER, SELFPAY | PROVIDERS: PCP Internal Medicine Geriatric Medicine; Visit Provider Radiology Diagnostic Radiology | DX: E28.39 Other primary ovarian failure (principal) | CPT/HCPCS: 77080 ==

== ENCOUNTER 2025-08-19 11:53 | Outpatient (REF) | payer OTHER, SELFPAY ==
[2025-08-19 16:40] LABS: Alanine Aminotransferase 30 U/L (0-31); Albumin Level 4.3 g/dL (3.5-5.0); Alkaline Phosphatase 115 U/L (39-117); Anion Gap 13 (12-20); Aspartate Amino Transferase 27 U/L (5-31); Blood Urea Nitrogen 9 mg/dL (9-16); Calcium 9.4 mg/dL (8.4-10.2); Carbon Dioxide 28 mmol/L (22-29); Chloride 103 mmol/L (96-108); Estimated Glomerular Filt Rate > 60; Potassium 4.1 mmol/L (3.3-5.1); Sodium 140 mmol/L (135-145); Total Protein 7.1 g/dL (6.5-8.0)
--- OUTSIDE RECORDS SUMMARY | 2025-08-19 17:03 | XMS_ITS | Encounter Summary ---
Author Organization [facility] Address [employer] [address] [address] Phone Care Team Providers Care Production Shift Supervisor Name Role Phone Name, Tone SEPULVEDA Primary Care Provider [phone] Encounter Details Date Type Department Care Team (Late st Contact Info) Description 05/26/2024 Procedure Pass [facility] Cardiac Director Of Midwifery/Staff Midwife [address] [place] [address] Social History Tobacco Use Types Packs/Day Years [...] on filedocumented in this encounter Care Teams Production Shift Supervisor Relationship Specialty Start Date End Date Name, MD Tone [address] [place] [address] PCP - General Internal Medicine 05/18/24 documented as of this encounter Additional Source Comments The information contained in this document represents components of the legal health record. It is not the complete legal health record.[facility]
--- OUTSIDE RECORDS SUMMARY | 2025-08-19 17:03 | XMS_ITS | Clinical Summary ---
Author Organization [facility]ly [facility] Address [address] [address] Phone Care Team Providers Care Garden Center Manager Name Role Phone Name, Tone SEPULVEDA Primary Care Provider [phone] Allergies Active Allergy Reactions Criticality Noted Date [...] EDT) SODIUM 144 136 - 145 mmol/L [facility] POTASSIUM 4.2 3.4 - 5.1 mmol/L [facility] CHLORIDE 103 98 - 107 mmol/L [facility] CO2 30 22 - 31 mmol/L [facility] BUN 12 6 - 23 mg/dL [facility] CREATININE 0.48(L) 0.50 - 1.20 mg/dL [facility] GLUCOSE 87 70 - 100 mg/dL [facility] CALCIUM 9.3 8.8 - 10.7 mg/dL [facility] EGFR 105 >59 mL/min/1. 73m2 [facility] Comment:Estimated glomerular filtration rate calculated using the CKD-EPI refit equation. ANION GAP 11 7 - 17 mmol/L [facility] Blood 05/28/2024 8:16 AM EDT 05/28/2024 9:06 AM EDT Matti Elias MD LAB BLOOD BKR ORDERABLES Final Result Performing Organization Address City/[facility] Co de Phone Number [facility] [address] [place] [id number] * (ABNORMAL) TSH with reflex (05/19/2024 9:14 AM EDT) Pathologist [facility] TSH 9.78(H) 0.50 - 5.70 uIU/mL [facility] Blood 05/19/2024 9:14 AM EDT 05/19/2024 9:51 AM EDT Matti Elias MD LAB BLOOD BKR ORDERABLES Final Result Performing Organization Address City/[facility]/ZIP Co de Phone Number [address] [address] * (ABNORMAL) Lipid panel (05/19/2024 9:14 AM EDT) CHOLESTEROL 217(H) <200 mg/dL [facility] TRIGLYCERIDES 140 35 - 150 mg/dL [facility] HDL 67 40 - 80 mg/dL [facility] CALCULATED LDL 122 50 - 129 mg/dL [facility] VLDL 28 <31 mg/dL [facility] CARDIAC RISK RATIO 3.2 0.0 - 4.0 [facility] Blood 05/19/2024 9:14 AM EDT 05/19/2024 9:51 AM EDT us Matti Elias MD LAB BLOOD BKR ORDERABLES Final Result [facility] [address] [place] [address] from Last 3 Months or Most Recently Relevant to Health Maintenance Insurance MEDICARE PART A & B [facility] MEDICARE REPLACEMENT MEDICARE PART A & B [facility] MEDICARE REPLACEMENT MEDICARE PART A & B Member Subscriber Plan / Payer (Ef fective 2023-) Name:Annie Estes Member ID:[id number] Relation to Subscriber:Self Name:Annie Estes Subscriber ID:[id number] Payer ID:[id number] Group ID:Not on file Type:Medicare Address: [facility] [address] [place] [address] [facility] MEDICARE REPLACEMENT MEDICARE PART A & B [place] [employer] MEDICARE REPLACEMENT MEDICARE PART A & B [facility] MEDICARE REPLACEMENT MEDICARE PART A & B [facility] MEDICARE REPLACEMENT Advance Directives For more information, please contact: [phone] (9AM - 5PM [facility], Friday-Friday) * Full Code (Latest Code Status on File) Date Activated Date Inactivated Comments 05/19/2024 2:04 AM Question Answer Comments Code Status Confirmed With: Patient Care Teams Garden [facility] Manager Relationship Specialty Start Date End Date Name, MD Tone [address] [place] [address] PCP - General Internal Medicine 05/18/24 Additional Source Comments The information contained in this document represents components of the legal health record. It is not the complete legal health record.[facility]
--- OUTSIDE RECORDS SUMMARY | 2025-08-19 17:03 | XMS_ITS | Encounter Summary ---
Author Organization [facility] Address [address] [address] Phone Care Team Providers Care Stone Mason Name Role Phone Name, Tone SEPULVEDA Primary Care Provider [phone] Encounter Details Date Type Department Care Team (Late st Contact Info) Description 05/20/2024 Procedure Pass [facility] Cardiac Boots And Shoes Supervisor [address] [place] [id number] Social History Tobacco Use Types Packs/Day Years [...] documented as of this encounter Care Teams Stone Mason Relationship Specialty Start Date End Date Name, MD Tone [address] [place] [address] PCP - General Internal Medicine 05/18/24 documented as of this encounter Additional Source Comments The information contained in this document represents components of the legal health record. It is not the complete legal health record.[facility]
--- OUTSIDE RECORDS SUMMARY | 2025-08-19 17:03 | XMS_ITS | Encounter Summary ---
Author Organization [facility] Address [address] [address] Phone Care Team Providers Care Personnel Technician Name Role Phone Name, Tone SEPULVEDA Primary Care Provider [phone] Encounter Details Date Type Department Care Team (Late st Contact Info) Description 05/19/2024 Procedure Pass [facility] Echocardiography [address] [place] [address] Social History Tobacco Use Types Packs/Day Years [...] documented as of this encounter Care Teams Personnel Technician Relationship Specialty Start Date End Date Name, MD Tone [address] [place] [address] PCP - General Internal Medicine 05/18/24 documented as of this encounter Additional Source Comments The information contained in this document represents components of the legal health record. It is not the complete legal health record.[facility]
== END 2025-08-19 11:54 | disposition home or self-care (01) ==
LOC: HO.HHCL 11:53
PROVIDERS: PCP Internal Medicine Geriatric Medicine; Visit Provider Internal Medicine Geriatric Medicine
DX: M81.8 Other osteoporosis without current pathological fracture (principal); R16.0 Hepatomegaly, not elsewhere classified
CPT/HCPCS: 36415; 80053; 82306